=== PATIENT | female | born 1990 | race Caucasian/White ===

== ENCOUNTER 2018-10-21 08:14 | Inpatient (IN) | payer BC, OTHER ==
[~2018-10-21] VITALS: Ht 162.6 cm; Wt 57.1 kg
[2018-10-21 09:18] LABS: BASO # 0.1 10^3/uL (0.0-0.2); BASO % 1.2 % (0.0-1.0); EOS # 0.1 10^3/uL (0.0-0.50); EOS % 1.2 % (0.0-3.0); HEMATOCRIT 36.3 % (36.0-47.0); HEMOGLOBIN 12.5 g/dl (12.0-15.5); LYMPH # 1.2 10^3/uL (1.5-6.5); LYMPH % 23.6 % (24.0-44.0); MEAN CORPUSCULAR HEMOGLOBIN 34.3 pg (27.0-33.0); MEAN CORPUSCULAR HGB CONC 34.4 g/dl (32.0-36.5); MEAN CORPUSCULAR VOLUME 99.7 fl (80.0-96.0); MONO # 0.5 10^3/uL (0.0-0.8); MONO % 9.4 % (0.0-5.0); NEUTROPHILS # 3.2 10^3/uL (1.8-7.7); NEUTROPHILS % 64.4 % (36.0-66.0); PLATELET COUNT, AUTOMATED 198 10^3/uL (150-450); RED BLOOD COUNT 3.64 10^6/uL (4.00-5.40); WHITE BLOOD COUNT 4.9 10^3/uL (4.0-10.0)
[2018-10-21] MEDS ORDERED: NS 1,000 ML IV ONE (09:30)
[2018-10-21 09:53] LABS: ALBUMIN 3.7 GM/DL (3.2-5.2); ALT/SGPT 52 U/L (12-78); BILIRUBIN,DIRECT 0.8 MG/DL (0.0-0.2); BILIRUBIN,TOTAL 1.7 MG/DL (0.2-1.0); BLOOD UREA NITROGEN 4 MG/DL (7-18); CALCIUM LEVEL 8.7 MG/DL (8.5-10.1); CARBON DIOXIDE LEVEL 21 MEQ/L (21-32); CHLORIDE LEVEL 93 MEQ/L (98-107); CREATININE FOR GFR 0.58 MG/DL (0.55-1.30); GLOMERULAR FILTRATION RATE > 60.0 (>60); GLUCOSE, FASTING 85 MG/DL (70-100); LIPASE 1186 U/L (73-393); POTASSIUM SERUM 2.9 MEQ/L (3.5-5.1); SODIUM LEVEL 132 MEQ/L (136-145); TOTAL PROTEIN 7.1 GM/DL (6.4-8.2)
[2018-10-21] MEDS ORDERED: POTASSIUM CHLORIDE 10 MEQ SR TABLET PO ONE (10:15)
[2018-10-21] MEDS ORDERED: ISOVUE-370 76% 100ML VIAL (Q9967) As Ordered ONE (10:19)
[2018-10-21] MEDS ORDERED: MORPHINE 4 MG/ML 1ML VIAL/SYRINGE (J2270) IV ONE (12:15)
[2018-10-21] MEDS ORDERED: ONDANSETRON 4MG/2ML VIAL (J2405) IV ONE (12:15)
--- NOTE | 2018-10-21 12:19 | REP ---
CT ABDOMEN PELVIS WITH IV CONTRAST ONLY: 10/21/2018. Technique: Bolus of 100 ml Isovue 370 scanning through the abdomen and pelvis with coronal and sagittal reconstructions. Clinical history: Diffuse abdominal pain with guarding on examination. Past history of diverticulitis. Findings: CT abdomen: No prior study. Lung bases are clear. Heart not enlarged. There is no pericardial thickening or effusion. Liver is enlarged with a right hepatic lobe 19.7 cm in midclavicular line. It is very low density and suggests some fatty infiltration. There is no focal hepatic mass or biliary dilatation. Gallbladder without calcified stone or mass. The spleen is unremarkable and not enlarged. No ascites around the spleen or most of the liver. There is a small amount of ascites at the inferior margin of the right lobe and fluid tracking along the anterior margin of Gerota's fascia on the right. There is edema in the fat adjacent to the duodenum and pancreatic head in the right upper quadrant. I do not see free air or signs of duodenal perforation nor abnormal fluid collection to suggest abscess. There is narrowing of the duodenum as it crosses under the SMA and dilatation of the third and fourth portion of the duodenum. Mesenteric edema is noted. There is evidence of colonic wall thickening or colitis in the upper abdomen. Kidneys without stone, mass, cyst, hydronephrosis or hydroureter. No ureteral calcification seen. The aorta normal. No periaortic pathologic sized adenopathy. Small nodes in the mesentery and retroperitoneum are present. The bones intact in the lumbar lower thoracic spine as well as the ribs included. CT pelvis: The sacrum, SI joints, pelvis, hips and pubic rami are unremarkable. The bladder is nearly empty. No gross stone or mass. Distal left colon and sigmoid and rectum collapsed. Mild colitis cannot be excluded. Wall thickness is mildly prominent in these areas without inflammatory change. Small bowel loops in the deep pelvis fluid-filled but not abnormally dilated. Some mild mesenteric infiltration in the deep pelvis between the small bowel loops. Fluid tracking along the lateral coronal fascia with only trace free fluid in the deep pelvis on the right side but not the left. Uterus tilted towards the left. There is no adnexal mass. No ventral or inguinal hernia. Small thickening of the cecum and noted but I cannot define the appendix on this study with confidence. Impression: 1. Fatty infiltration liver with a 19.7 cm vertical diameter. No mass or biliary dilatation. Spleen normal. 2. Adrenal glands, kidneys and gallbladder without calcifications or gross abnormality. 3. Inflammatory changes adjacent to the duodenum with wall thickening and infiltration of fat in the duodenum. There is fluid along the inferior margin of the liver and along the anterior margin of Gerota's fascia into the peritoneal gutter. This may reflect duodenitis fairly severe. Mild pancreatitis of the pancreatic head with adjacent duodenal changes are possible but less likely. No perforation or abscess identified on these images. 4. Most of small bowel loops also are fluid filled but not abnormally dilated with some mild mesenteric infiltration. The right transverse colon show wall thickening and some pericolonic inflammatory changes suggesting colitis. There is wall thickening of the left colon and rectosigmoid with out adjacent inflammatory changes. Still reflects a pancolitis appearance. I cannot discern location of the appendix. There are inflammatory changes adjacent to the cecum but findings are worse at the level of the duodenum. Electronically Signed by Lane Rm MD 10/21/2018 09:49 P
[2018-10-21 12:26] LABS: AMPHETAMINES LEVEL URINE NEGATIVE (NEGATIVE); BARBITURATES URINE NEGATIVE (NEGATIVE); BENZODIAZEPINES URINE NEGATIVE (NEGATIVE); CANNABINOIDS URINE NEGATIVE (NEGATIVE); COCAINE METABOLITE URINE NEGATIVE (NEGATIVE); METHADONE URINE NEGATIVE (NEGATIVE); OPIATES URINE NEGATIVE (NEGATIVE); PHENCYCLIDINE URINE NEGATIVE (NEGATIVE)
[2018-10-21] MEDS ORDERED: LORazepam 2 MG TAB PO PRN (13:30)
[2018-10-21] MEDS ORDERED: MOM 30ML SUSPENSION UDC PO PRN (13:30)
[2018-10-21] MEDS ORDERED: ACETAMINOPHEN TAB 650MG DOSE (2X325MG) PO PRN (13:30)
[2018-10-21] MEDS ORDERED: MAALOX 30 ML SUSP *UDC PO PRN (13:30)
[2018-10-21] MEDS ORDERED: ONDANSETRON 4MG/2ML VIAL (J2405) IV PRN (13:30)
[2018-10-21] MEDS: NS 1,000 ML IV SCH ×3 (13:41→22:20)
--- NOTE | 2018-10-21 13:46 | HPEPDOC ---
General Date of Admission 10/21/18 Date of Service: Oct 21, 2018 Chief Complaint The patient is a 28-year-old female admitted with a reason for visit of Abdominal Pain. Source: Patient Exam Limitations: No limitations Timing/Duration: Week(s), Other Severity: Severe Associated Symptoms: Nausea, Vomiting History of Present Illness 28 years old white female with past medical history of no medical problems, presented with chief complaints of "I have really bad alcohol is a problem." As per patient, she hasn't been drinking habits since last 2 years but progressively is getting worse since last 1 month. She is been having his stomach pains. Abdomen pain and also saw some red blood in the mucus and progressively got worse since last 2 weeks and decided come to ER for further care. Patient denies any other complaints Home Medications No Active Prescriptions or Reported Meds Allergies Coded Allergies: No Known Allergies (Unverified , 10/21/18) Past Medical History Medical History Alcoholism and nicotine addiction Surgical History None Family History Significant Family History: No pertinent family hx Social History * Smoker: current smoker Alcohol: heavy Drugs: denies A-FIB/CHADSVASC A-FIB History Current/History of A-Fib/PAF?: No Review of Systems Constitutional: Denies: Chills, Fever, Malaise, Night Sweats, Weakness, Fatigue, Weight Loss, Lethargy, Other Eyes: Denies: Pain, Vision change, Conjunctivae inflammation, Eyelid inflammation, Redness, Other ENT: Denies: Head Aches, Ear Pain, Dysphagia, Sinus Congestion, Post Nasal Drip, Sore Throat, Epistaxis, Other Symptoms Pulmonary: Denies: Dyspnea, Cough, Pleuritic Chest Pain, Other Symptoms Cardiovascular: Denies: Chest Pain, Palpitations, Orthopnea, Paroxysmal Noc. Dyspnea, Edema, Lt Headedness, Other Symptoms Gastrointestinal: Reports: Nausea, Vomiting, Abdominal Pain Genitourinary: Denies: Dysuria, Frequency, Incontinence, Hematuria, Retention, Other Symptoms Hematologic: Denies: Bruising, Bleeding Excessively, Petecchia, Purpura, Enlarged Lymph Nodes, Other Hematologic Endocrine: Denies: Polydipsia, Polyphagia, Polyuria, Heat Intolerance, Cold Intolerance, Other Endocrine Sx Musculoskeletal: Denies: Neck Pain, Back Pain, Shoulder Pain, Arm Pain, Hand Pain, Leg Pain, Foot Pain, Joint Pain, Muscle Pain, Spasms, Other Symptoms Neurological: Denies: Weakness, Numbness, Incoordination, Change in speech, Confusion, Seizures, Other Symptoms Psych: Denies: Mood Normal, Anxiety, Depression, Memory Issues, Thoughts of Self Harm, Anger, Thoughts of Harming Other, Other Psych Physical Examination General Exam: Positive: Alert, Cooperative Eye Exam: Positive: PERRLA ENT Exam: Positive: Atraumatic, Mucous membr. moist/pink Neck Exam: Positive: Supple Chest Exam: Positive: Clear to auscultation, Normal air movement Heart Exam: Positive: Rate Normal, Normal S1, Normal S2 Abdomen Exam: Positive: Normal bowel sounds, Soft Extremity Exam: Positive: Normal pulses Skin Exam: Positive: Nl turgor and temperature Neuro Exam: Positive: Strength at 5/5 X4 ext, Sensation Intact Vital Signs Vital Signs Date Time Temp Pulse Resp B/P (MAP) Pulse Ox O2 Delivery O2 Flow Rate FiO2 10/21/18 12:49 96.9 86 17 107/67 (80) 98 Room Air Laboratory Data Labs 24H Laboratory Tests 2 10/21/18 09:00: Immature Granulocyte % (Auto) 0.2, White Blood Count 4.9, Red Blood Count 3.64L, Hemoglobin 12.5, Hematocrit 36.3, Mean Corpuscular Volume 99.7H, Mean Corpuscular Hemoglobin 34.3H, Mean Corpuscular Hemoglobin Concent 34.4, Red Cell Distribution Width 14.2, Platelet Count 198, Neutrophils (%) (Auto) 64.4, Lymphocytes (%) (Auto) 23.6L, Monocytes (%) (Auto) 9.4H, Eosinophils (%) (Auto) 1.2, Basophils (%) (Auto) 1.2H, Neutrophils # (Auto) 3.2, Lymphocytes # (Auto) 1.2L, Monocytes # (Auto) 0.5, Eosinophils # (Auto) 0.1, Basophils # (Auto) 0.1, Nucleated Red Blood Cells % (auto) 0.0, Anion Gap 18H, Glomerular Filtration Rate > 60.0, Calcium Level 8.7, Aspartate Amino Transf (AST/SGOT) 243H, Alanine Aminotransferase (ALT/SGPT) 52, Alkaline Phosphatase 192H, Total Bilirubin 1.7H, Direct Bilirubin 0.8H, Total Protein 7.1, Albumin 3.7, Albumin/Globulin Ratio 1.09, Lipase 1186H, Ethyl Alcohol Level 0.010 10/21/18 11:50: Urine Color YELLOW, Urine Appearance CLEAR, Urine pH 6.0, Urine Specific [place] >1.060H, Urine Protein NEGATIVE, Urine Glucose (UA) NEGATIVE, Urine Ketones 1+H, Urine Blood NEGATIVE, Urine Nitrite NEGATIVE, Urine Bilirubin NEGATIVE, Urine Urobilinogen 2.0H, Urine Leukocyte Esterase TRACEH, Urine WBC (Auto) 0, Urine RBC (Auto) 2, Urine Hyaline Casts (Auto) 0, Urine Bacteria (Auto) 1+H, Urine Squamous Epithelial Cells 0, Urine Sperm (Auto) , Urine Amphetamines Screen NEGATIVE, Urine Benzodiazepines Screen NEGATIVE, Urine Opiates Screen NEGATIVE, Urine Methadone Screen NEGATIVE, Urine Barbiturates Screen NEGATIVE, Urine Phencyclidine Screen NEGATIVE, Urine Cocaine Metabolite Screen NEGATIVE, Urine Cannabinoids Screen NEGATIVE CBC/BMP Laboratory Tests 10/21/18 09:00 Red Blood Count 3.64 L, Mean Corpuscular Volume 99.7 H, Mean Corpuscular Hemoglobin 34.3 H, Mean Corpuscular Hemoglobin Concent 34.4, Red Cell Distribution Width 14.2, Neutrophils (%) (Auto) 64.4, Lymphocytes (%) (Auto) 23.6 L, Monocytes (%) (Auto) 9.4 H, Eosinophils (%) (Auto) 1.2, Basophils (%) (Auto) 1.2 H, Neutrophils # (Auto) 3.2, Lymphocytes # (Auto) 1.2 L, Monocytes # (Auto) 0.5, Eosinophils # (Auto) 0.1, Basophils # (Auto) 0.1 Microbiology Microbiology 10/21/18 Urine Culture, Received Pending Problems (1) Pancreatitis Status: Acute Problem Text: 28 years old white female with no past medical history with severe abuse of alcohol. Lives alone. Patient drinks about half a liter of lock. I every day and she also smokes 1 pack per day. Patient came with abdominal pain and also noticed some red blood with the mucus in the stools since last 2 weeks. Patient denies any coffee-ground vomitus or stools. She will be admitted to medical floor with a severe duodenitis/pancolitis and possible impending delirium tremors. Patient was also supplemented with potassium for her hypokalemia, magnesium level now was not ordered but will be done today. Patient is already getting a magnesium supplement. Admitted to medical floor with the telemetry IV fluid normal saline 150 mL per hour Clear liquid diet Protonix 40 mg IV push every 12 hours Zofran when necessary DVT prophylaxis with bilateral SCDs (2) Pancolitis Status: Acute Problem Text: Most likely secondary to alcohol abuse Supportive care Bowel rest With clinically monitor patient. If needed, we'll get the GI consultation (3) ETOH abuse Status: Acute (4) Hypokalemia Status: Acute Problem Text: Supplemented Repeat level in a.m. (5) Duodenitis Status: Acute Problem Text: Most likely secondary to alcohol as an Protonix 40 mg IV every 12 hours Dear liquid diet (6) Fatty liver Status: Acute Plan / VTE VTE Prophylaxis Ordered?: Yes MAJOR GRACE MD Oct 21, 2018 13:46
[2018-10-21] MEDS ORDERED: NICOTINE 14 MG/24 HR TRANSDERMAL TD ONE (14:00)
[2018-10-21] MEDS ORDERED: MAG SULF 1GM/100ML (MAG RUN) 1 GM in APPROPRIATE DILUENT 1 EA IV ONE (14:00)
[2018-10-21] MEDS: DOCUSATE SODIUM 100 MG CAP PO SCH ×2 (15:05→22:19)
[2018-10-21] MEDS: FOLIC ACID 1 MG TAB PO SCH (15:05)
[2018-10-21] MEDS: MULTIVITAMINS/MINERALS THERAP 1 TAB PO SCH (15:05)
[2018-10-21] MEDS: THIAMINE 100 MG TAB PO SCH ×2 (15:05→22:19)
[2018-10-21] MEDS: PERCOCET 5MG/325MG TAB PO PRN ×2 (18:13→22:22)
--- NOTE | 2018-10-21 19:30 | ECGEPIP ---
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
[2018-10-21 22:00] VITALS: BP 117/82
[2018-10-21] MEDS: PANTOPRAZOLE 40MG INJ (PROTONIX) (C9113) IV SCH (22:19)
[2018-10-22] MEDS: NS 1,000 ML IV SCH ×4 (03:28→22:01)
[2018-10-22 06:00] VITALS: BP 91/52
[2018-10-22 06:26] LABS: HEMATOCRIT 27.3 % (36.0-47.0); MEAN CORPUSCULAR HEMOGLOBIN 33.7 pg (27.0-33.0); MEAN CORPUSCULAR HGB CONC 32.6 g/dl (32.0-36.5); MEAN CORPUSCULAR VOLUME 103.4 fl (80.0-96.0); PLATELET COUNT, AUTOMATED 148 10^3/uL (150-450); RED BLOOD COUNT 2.64 10^6/uL (4.00-5.40); WHITE BLOOD COUNT 3.6 10^3/uL (4.0-10.0)
[2018-10-22 06:31] LABS: HEMOGLOBIN 8.9 g/dl (12.0-15.5)
[2018-10-22 07:06] LABS: ALBUMIN 2.7 GM/DL (3.2-5.2); ALT/SGPT 34 U/L (12-78); BILIRUBIN,TOTAL 1.2 MG/DL (0.2-1.0); BLOOD UREA NITROGEN 2 MG/DL (7-18); CALCIUM LEVEL 7.2 MG/DL (8.5-10.1); CARBON DIOXIDE LEVEL 27 MEQ/L (21-32); CHLORIDE LEVEL 105 MEQ/L (98-107); CREATININE FOR GFR 0.38 MG/DL (0.55-1.30); GLOMERULAR FILTRATION RATE > 60.0 (>60); GLUCOSE, FASTING 82 MG/DL (70-100); LIPASE 581 U/L (73-393); MAGNESIUM LEVEL 1.7 MG/DL (1.8-2.4); POTASSIUM SERUM 3.3 MEQ/L (3.5-5.1); SODIUM LEVEL 140 MEQ/L (136-145)
[2018-10-22] MEDS ORDERED: POTASSIUM CHLORIDE 10 MEQ SR TABLET PO ONE (08:00)
[2018-10-22] MEDS ORDERED: MAG SULF 1GM/100ML (MAG RUN) 1 GM in APPROPRIATE DILUENT 1 EA IV ONE (08:00)
[2018-10-22] MEDS: PANTOPRAZOLE 40MG INJ (PROTONIX) (C9113) IV SCH ×2 (08:22→20:59)
[2018-10-22] MEDS: PERCOCET 5MG/325MG TAB PO PRN ×3 (08:23→20:59)
[2018-10-22] MEDS: THIAMINE 100 MG TAB PO SCH ×2 (08:23→20:58)
[2018-10-22] MEDS: MULTIVITAMINS/MINERALS THERAP 1 TAB PO SCH (08:23)
[2018-10-22] MEDS: FOLIC ACID 1 MG TAB PO SCH (08:23)
[2018-10-22] MEDS: DOCUSATE SODIUM 100 MG CAP PO SCH ×2 (08:23→20:58)
[2018-10-22 08:33] VITALS: BP 100/76
--- NOTE | 2018-10-22 11:06 | IPNPDOC ---
Subjective Date Seen The patient was seen on 10/22/18. Subjective Chief Complaint/HPI Patient with reduced abdominal pain. As per patient, she is improving slightly, denies any blood in stools or mucus in stool General: Denies: ROS Unobtainable, Chills, Night Sweats, Fatigue, Malaise, Normal Appetite, Other Symptoms Constitutional: Denies: Chills, Fever, Malaise, Night Sweats, Weakness, Fatigue, Weight Loss, Lethargy, Other Eyes: Denies: Pain, Vision change, Conjunctivae inflammation, Eyelid inflammation, Redness, Other ENT: Denies: Head Aches, Ear Pain, Dysphagia, Sinus Congestion, Post Nasal Drip, Sore Throat, Epistaxis, Other Symptoms Skin: Denies: Rash, Lesions, Jaundice, Bruising, Itching, Dry, Breakdown, Nail Changes, Other Cardiovascular: Denies: Chest Pain, Palpitations, Orthopnea, Paroxysmal Noc. Dyspnea, Edema, Lt Headedness, Other Symptoms Gastrointestinal: Reports: Abdominal Pain Hematologic: Denies: Bruising, Bleeding Excessively, Petecchia, Purpura, Enlarged Lymph Nodes, Other Hematologic Neurological: Denies: Weakness, Numbness, Incoordination, Change in speech, Confusion, Seizures, Other Symptoms Objective Physical Examination General Exam: Positive: Alert, Cooperative Eye Exam: Positive: PERRLA ENT Exam: Positive: Atraumatic, Mucous membr. moist/pink Neck Exam: Positive: Supple Chest Exam: Positive: Clear to auscultation, Normal air movement Heart Exam: Positive: Rate Normal, Normal S1, Normal S2 Abdomen Exam: Positive: Normal bowel sounds, Soft, Tenderness (positive tenderness at the epigastric area) Extremity Exam: Positive: Normal pulses Skin Exam: Positive: Nl turgor and temperature Neuro Exam: Positive: Strength at 5/5 X4 ext, Sensation Intact Assessment /Plan Problems (1) Pancreatitis Status: Acute Problem Text: 28 years old white female with no past medical history with severe abuse of alcohol. Lives alone. Patient drinks about half a liter of lock. I every day and she also smokes 1 pack per day. Patient came with abdominal pain and also noticed some red blood with the mucus in the stools since last 2 weeks. Patient denies any coffee-ground vomitus or stools. She will be admitted to medical floor with a severe duodenitis/pancolitis and possible impending delirium tremors. Patient was also supplemented with potassium for her hypokalemia, magnesium level now was not ordered but will be done today. Patient is already getting a magnesium supplement. Admitted to medical floor Decreased IV fluids normal saline 100 mL per hour Clear liquid diet Protonix 40 mg IV push every 12 hours Zofran when necessary DVT prophylaxis with bilateral SCDs Lipase is down to 581 Will update diet to regular diet (2) Pancolitis Status: Acute Problem Text: Most likely secondary to alcohol abuse Improving. Is status progressively with pain management and bowel rest Supportive care Bowel rest With clinically monitor patient. If needed, we'll get the GI consultation (3) ETOH abuse Status: Acute Problem Text: Extensive counseling regarding abstinence from alcohol was done, patient is not willing to go for alcohol rehabilitation inpatient or outpatient (4) Hypokalemia Status: Acute Problem Text: Supplemented Repeat level in a.m. (5) Duodenitis Status: Acute Problem Text: Most likely secondary to alcohol as an Protonix 40 mg IV every 12 hours Dear liquid diet (6) Fatty liver Status: Acute Problem Text: Secondary to alcohol abuse (7) Hypomagnesemia Status: Acute Problem Text: Magnesium sulfate sulfate given Be levels in a.m. Plan/VTE VTE Prophylaxis Ordered?: Yes VS, I&O, 24H, Fishbone Vital Signs/I&O Vital Signs Date Time Temp Pulse Resp B/P (MAP) Pulse Ox O2 Delivery O2 Flow Rate FiO2 10/22/18 08:53 16 10/22/18 08:33 84 100/76 10/22/18 06:00 96.5 99 10/21/18 12:49 Room Air I&O- Last 24 Hours up to 6 AM 10/22/18 06:00 Intake Total 2525 ml Balance 2525 ml Laboratory Data 24H LABS Laboratory Tests 2 10/21/18 11:50: Urine Color YELLOW, Urine Appearance CLEAR, Urine pH 6.0, Urine Specific [place] >1.060H, Urine Protein NEGATIVE, Urine Glucose (UA) NEGATIVE, Urine Ketones 1+H, Urine Blood NEGATIVE, Urine Nitrite NEGATIVE, Urine Bilirubin NEGATIVE, Urine Urobilinogen 2.0H, Urine Leukocyte Esterase TRACEH, Urine WBC (Auto) 0, Urine RBC (Auto) 2, Urine Hyaline Casts (Auto) 0, Urine Bacteria (Auto) 1+H, Urine Squamous Epithelial Cells 0, Urine Sperm (Auto) , Urine Amphetamines Screen NEGATIVE, Urine Benzodiazepines Screen NEGATIVE, Urine Opiates Screen NEGATIVE, Urine Methadone Screen NEGATIVE, Urine Barbiturates Screen NEGATIVE, Urine Phencyclidine Screen NEGATIVE, Urine Cocaine Metabolite Screen NEGATIVE, Urine Cannabinoids Screen NEGATIVE 10/22/18 05:59: Nucleated Red Blood Cells % (auto) 0.0, Anion Gap 8, Glomerular Filtration Rate > 60.0, Blood Urea Nitrogen 2L, Creatinine 0.38L, Sodium Level 140#, Potassium Level 3.3L, Chloride Level 105, Carbon Dioxide Level 27, Calcium Level 7.2#L, Aspartate Amino Transf (AST/SGOT) 145H, Alanine Aminotransferase (ALT/SGPT) 34, Alkaline Phosphatase 130H, Total Bilirubin 1.2H, Total Protein 5.0#L, Albumin 2.7#L, Magnesium Level 1.7L, Albumin/Globulin Ratio 1.17, Lipase 581H CBC/BMP Laboratory Tests 10/22/18 05:59 Red Blood Count 2.64 L, Mean Corpuscular Volume 103.4 H, Mean Corpuscular Hemoglobin 33.7 H, Mean Corpuscular Hemoglobin Concent 32.6, Red Cell Distribution Width 14.2, Calcium Level 7.2 #L, Aspartate Amino Transf (AST/SGOT) 145 H, Alanine Aminotransferase (ALT/SGPT) 34, Alkaline Phosphatase 130 H, Total Bilirubin 1.2 H, Total Protein 5.0 #L, Albumin 2.7 #L Microbiology Microbiology 10/21/18 Urine Culture, Received Pending MAJOR GRACE MD Oct 22, 2018 11:06
[2018-10-22 14:00] VITALS: BP 108/81
[2018-10-22 16:27] VITALS: BP 102/80
[2018-10-22 22:00] VITALS: BP 111/79
[2018-10-23] MEDS: NS 1,000 ML IV SCH ×2 (02:45→09:20)
[2018-10-23 06:00] VITALS: BP 115/80
[2018-10-23 06:12] LABS: BASO % 1.1 % (0.0-1.0); EOS # 0.1 10^3/uL (0.0-0.50); EOS % 2.7 % (0.0-3.0); LYMPH # 1.1 10^3/uL (1.5-6.5); MEAN CORPUSCULAR HEMOGLOBIN 32.8 pg (27.0-33.0); MEAN CORPUSCULAR HGB CONC 32.1 g/dl (32.0-36.5); MEAN CORPUSCULAR VOLUME 102.2 fl (80.0-96.0); MONO # 0.3 10^3/uL (0.0-0.8); NEUTROPHILS # 2.2 10^3/uL (1.8-7.7); NEUTROPHILS % 59.9 % (36.0-66.0); PLATELET COUNT, AUTOMATED 157 10^3/uL (150-450); RED BLOOD COUNT 2.74 10^6/uL (4.00-5.40); WHITE BLOOD COUNT 3.7 10^3/uL (4.0-10.0)
[2018-10-23] MEDS: PERCOCET 5MG/325MG TAB PO PRN ×3 (06:23→22:16)
[2018-10-23 06:40] LABS: ALBUMIN 2.6 GM/DL (3.2-5.2); ALT/SGPT 53 U/L (12-78); BILIRUBIN,TOTAL 0.8 MG/DL (0.2-1.0); BLOOD UREA NITROGEN < 1 MG/DL (7-18); CALCIUM LEVEL 7.3 MG/DL (8.5-10.1); CARBON DIOXIDE LEVEL 25 MEQ/L (21-32); CHLORIDE LEVEL 111 MEQ/L (98-107); CREATININE FOR GFR 0.38 MG/DL (0.55-1.30); GLOMERULAR FILTRATION RATE > 60.0 (>60); GLUCOSE, FASTING 87 MG/DL (70-100); POTASSIUM SERUM 3.4 MEQ/L (3.5-5.1); SODIUM LEVEL 142 MEQ/L (136-145); TOTAL PROTEIN 4.9 GM/DL (6.4-8.2)
[2018-10-23] MEDS ORDERED: POTASSIUM CHLORIDE 10 MEQ SR TABLET PO ONE (08:00)
[2018-10-23] MEDS: THIAMINE 100 MG TAB PO SCH ×2 (09:15→22:15)
[2018-10-23] MEDS: DOCUSATE SODIUM 100 MG CAP PO SCH ×2 (09:15→22:15)
[2018-10-23] MEDS: PANTOPRAZOLE 40MG INJ (PROTONIX) (C9113) IV SCH ×2 (09:15→22:15)
[2018-10-23] MEDS: MULTIVITAMINS/MINERALS THERAP 1 TAB PO SCH (09:15)
[2018-10-23] MEDS: FOLIC ACID 1 MG TAB PO SCH (09:15)
--- NOTE | 2018-10-23 11:36 | IPNPDOC ---
Subjective Date Seen The patient was seen on 10/23/18. Subjective Chief Complaint/HPI Patient feels much better. Still has some abdominal pain mostly on the left lower quadrant, nausea, vomiting has resolved General: Denies: ROS Unobtainable, Chills, Night Sweats, Fatigue, Malaise, Normal Appetite, Other Symptoms Constitutional: Denies: Chills, Fever, Malaise, Night Sweats, Weakness, Fatigue, Weight Loss, Lethargy, Other Eyes: Denies: Pain, Vision change, Conjunctivae inflammation, Eyelid inflammation, Redness, Other ENT: Denies: Head Aches, Ear Pain, Dysphagia, Sinus Congestion, Post Nasal Drip, Sore Throat, Epistaxis, Other Symptoms Skin: Denies: Rash, Lesions, Jaundice, Bruising, Itching, Dry, Breakdown, Nail Changes, Other Pulmonary: Denies: Dyspnea, Cough, Pleuritic Chest Pain, Other Symptoms Cardiovascular: Denies: Chest Pain, Palpitations, Orthopnea, Paroxysmal Noc. Dyspnea, Edema, Lt Headedness, Other Symptoms Gastrointestinal: Reports: Abdominal Pain Genitourinary: Denies: Dysuria, Frequency, Incontinence, Hematuria, Retention, Other Symptoms Hematologic: Denies: Bruising, Bleeding Excessively, Petecchia, Purpura, Enlarged Lymph Nodes, Other Hematologic Endocrine: Denies: Polydipsia, Polyphagia, Polyuria, Heat Intolerance, Cold Intolerance, Other Endocrine Sx Musculoskeletal: Denies: Neck Pain, Back Pain, Shoulder Pain, Arm Pain, Hand P ain, Leg Pain, Foot Pain, Joint Pain, Muscle Pain, Spasms, Other Symptoms Neurological: Denies: Weakness, Numbness, Incoordination, Change in speech, Confusion, Seizures, Other Symptoms Objective Physical Examination General Exam: Positive: Alert, Cooperative Eye Exam: Positive: PERRLA ENT Exam: Positive: Atraumatic, Mucous membr. moist/pink Neck Exam: Positive: Supple Chest Exam: Positive: Clear to auscultation, Normal air movement Heart Exam: Positive: Rate Normal, Normal S1, Normal S2 Abdomen Exam: Positive: Normal bowel sounds, Soft, Tenderness (positive tenderness. His left lower quadrant) Extremity Exam: Positive: Normal pulses Skin Exam: Positive: Nl turgor and temperature Neuro Exam: Positive: Strength at 5/5 X4 ext, Sensation Intact Assessment /Plan Problems (1) Pancreatitis Status: Acute Problem Text: 28 years old white female with no past medical history with severe abuse of alcohol. Lives alone. Patient drinks about half a liter of lock. I every day and she also smokes 1 pack per day. Patient came with abdominal pain and also noticed some red blood with the mucus in the stools since last 2 weeks. Patient denies any coffee-ground vomitus or stools. She will be admitted to medical floor with a severe duodenitis/pancolitis and possible impending delirium tremors. Patient was also supplemented with potassium for her hypokalemia, magnesium level now was not ordered but will be done today. Patient is already getting a magnesium supplement. Admitted to medical floor Decreased IV fluids normal saline 100 mL per hour On regular diet, tolerating very well Protonix changed to by mouth today Zofran when necessary DVT prophylaxis with bilateral SCDs GI consult with Dr. Bass called as patient is still hesitant to tenderness at left lower quadrant and on CT abdomen and pelvis. There was evidence of pancolitis, further, as per GI recommendations (2) Pancolitis Status: Acute Problem Text: Most likely secondary to alcohol abuse Still complaining of left lower quadrant pain which is improved but persistent GI consult with Dr. Bass has been requested (3) ETOH abuse Status: Acute Problem Text: Extensive counseling regarding abstinence from alcohol was done, patient is not willing to go for alcohol rehabilitation inpatient or outpatient (4) Hypokalemia Status: Acute Problem Text: Supplemented Repeat level in a.m. (5) Duodenitis Status: Acute Problem Text: Most likely secondary to alcohol as an Protonix 40 mg IV every 12 hours Dear liquid diet (6) Fatty liver Status: Acute Problem Text: Secondary to alcohol abuse (7) Hypomagnesemia Status: Acute Problem Text: Magnesium sulfate sulfate given Be levels in a.m. Plan/VTE VTE Prophylaxis Ordered?: Yes VS, I&O, 24H, Fishbone Vital Signs/I&O Vital Signs Date Time Temp Pulse Resp B/P (MAP) Pulse Ox O2 Delivery O2 Flow Rate FiO2 10/23/18 06:53 20 10/23/18 06:00 65 115/80 10/23/18 06:00 97.6 98 10/21/18 12:49 Room Air I&O- Last 24 Hours up to 6 AM 10/23/18 05:59 Intake Total 4100 ml Balance 4100 ml Laboratory Data 24H LABS Laboratory Tests 2 10/23/18 05:59: Immature Granulocyte % (Auto) 0.3, White Blood Count 3.7L, Red Blood Count 2.74L, Hemoglobin 9.0L, Hematocrit 28.0L, Mean Corpuscular Volume 102.2H, Mean Corpuscular Hemoglobin 32.8, Mean Corpuscular Hemoglobin Concent 32.1, Red Cell Distribution Width 14.5, Platelet Count 157, Neutrophils (%) (Auto) 59.9, Lymphocytes (%) (Auto) 29.0, Monocytes (%) (Auto) 7.0H, Eosinophils (%) (Auto) 2.7, Basophils (%) (Auto) 1.1H, Neutrophils # (Auto) 2.2, Lymphocytes # (Auto) 1.1L, Monocytes # (Auto) 0.3, Eosinophils # (Auto) 0.1, Basophils # (Auto) 0.0, Nucleated Red Blood Cells % (auto) 0.0, Anion Gap 6L, Glomerular Filtration Rate > 60.0, Blood Urea Nitrogen < 1#L, Creatinine 0.38L, Sodium Level 142, Potassium Level 3.4L, Chloride Level 111H, Carbon Dioxide Level 25, Calcium Level 7.3L, Aspartate Amino Transf (AST/SGOT) 210H, Alanine Aminotransferase (ALT/SGPT) 53, Alkaline Phosphatase 153H, Total Bilirubin 0.8, Total Protein 4.9L, Albumin 2.6L, Albumin/Globulin Ratio 1.13 CBC/BMP Laboratory Tests 10/23/18 05:59 Red Blood Count 2.74 L, Mean Corpuscular Volume 102.2 H, Mean Corpuscular Hemoglobin 32.8, Mean Corpuscular Hemoglobin Concent 32.1, Red Cell Distribution Width 14.5, Neutrophils (%) (Auto) 59.9, Lymphocytes (%) (Auto) 29.0, Monocytes (%) (Auto) 7.0 H, Eosinophils (%) (Auto) 2.7, Basophils (%) (Auto) 1.1 H, N eutrophils # (Auto) 2.2, Lymphocytes # (Auto) 1.1 L, Monocytes # (Auto) 0.3, Eosinophils # (Auto) 0.1, Basophils # (Auto) 0.0, Calcium Level 7.3 L, Aspartate Amino Transf (AST/SGOT) 210 H, Alanine Aminotransferase (ALT/SGPT) 53, Alkaline Phosphatase 153 H, Total Bilirubin 0.8, Total Protein 4.9 L, Albumin 2.6 L Microbiology Microbiology 10/21/18 Urine Culture - Final, Complete Klebsiella Pneumoniae MAJOR GRACE MD Oct 23, 2018 11:36
[2018-10-23 14:00] VITALS: BP 110/76
[2018-10-23 22:00] VITALS: BP 124/80
[2018-10-24] MEDS: NS 1,000 ML IV SCH ×2 (01:32→11:19)
[2018-10-24 05:51] LABS: HEMATOCRIT 27.1 % (36.0-47.0); HEMOGLOBIN 8.8 g/dl (12.0-15.5); MEAN CORPUSCULAR HGB CONC 32.5 g/dl (32.0-36.5); MEAN CORPUSCULAR VOLUME 101.5 fl (80.0-96.0); PLATELET COUNT, AUTOMATED 187 10^3/uL (150-450); RED BLOOD COUNT 2.67 10^6/uL (4.00-5.40); WHITE BLOOD COUNT 4.5 10^3/uL (4.0-10.0)
[2018-10-24 06:00] VITALS: BP 98/60
[2018-10-24 06:19] LABS: ALBUMIN 2.7 GM/DL (3.2-5.2); ALT/SGPT 61 U/L (12-78); BILIRUBIN,TOTAL 0.7 MG/DL (0.2-1.0); BLOOD UREA NITROGEN < 1 MG/DL (7-18); CALCIUM LEVEL 7.7 MG/DL (8.5-10.1); CARBON DIOXIDE LEVEL 25 MEQ/L (21-32); CHLORIDE LEVEL 108 MEQ/L (98-107); CREATININE FOR GFR 0.41 MG/DL (0.55-1.30); GLOMERULAR FILTRATION RATE > 60.0 (>60); GLUCOSE, FASTING 90 MG/DL (70-100); LIPASE 339 U/L (73-393); POTASSIUM SERUM 3.6 MEQ/L (3.5-5.1); SODIUM LEVEL 140 MEQ/L (136-145); TOTAL PROTEIN 5.3 GM/DL (6.4-8.2)
[2018-10-24] MEDS: FOLIC ACID 1 MG TAB PO SCH (08:24)
[2018-10-24] MEDS: DOCUSATE SODIUM 100 MG CAP PO SCH (08:24)
[2018-10-24] MEDS: PANTOPRAZOLE 40MG INJ (PROTONIX) (C9113) IV SCH (08:24)
[2018-10-24] MEDS: MULTIVITAMINS/MINERALS THERAP 1 TAB PO SCH (08:24)
--- NOTE | 2018-10-24 11:09 | IPNPDOC ---
Subjective Date Seen The patient was seen on 10/24/18. Subjective Chief Complaint/HPI Patient abdominal pain is improving with less pain on left lower quadrant GI of the report is pending General: Denies: ROS Unobtainable, Chills, Night Sweats, Fatigue, Malaise, Normal Appetite, Other Symptoms Constitutional: Denies: Chills, Fever, Malaise, Night Sweats, Weakness, Fatigue, Weight Loss, Lethargy, Other Eyes: Denies: Pain, Vision change, Conjunctivae inflammation, Eyelid inflammation, Redness, Other ENT: Denies: Head Aches, Ear Pain, Dysphagia, Sinus Congestion, Post Nasal Drip, Sore Throat, Epistaxis, Other Symptoms Skin: Denies: Rash, Lesions, Jaundice, Bruising, Itching, Dry, Breakdown, Nail Changes, Other Pulmonary: Denies: Dyspnea, Cough, Pleuritic Chest Pain, Other Symptoms Cardiovascular: Denies: Chest Pain, Palpitations, Orthopnea, Paroxysmal Noc. Dyspnea, Edema, Lt Headedness, Other Symptoms Gastrointestinal: Denies: Nausea, Vomiting, Abdominal Pain, Diarrhea, Constipation, Melena, Hematochezia, Other Symptoms Musculoskeletal: Denies: Neck Pain, Back Pain, Shoulder Pain, Arm Pain, Hand Pain, Leg Pain, Foot Pain, Joint Pain, Muscle Pain, Spasms, Other Symptoms Neurological: Denies: Weakness, Numbness, Incoordination, Change in speech, Confusion, Seizures, Other Symptoms Objective Physical Examination General Exam: Positive: Alert, Cooperative Eye Exam: Positive: PERRLA ENT Exam: Positive: Atraumatic, Mucous membr. moist/pink Neck Exam: Positive: Supple Chest Exam: Positive: Clear to auscultation, Normal air movement Heart Exam: Positive: Rate Normal, Normal S1, Normal S2 Abdomen Exam: Positive: Normal bowel sounds, Soft, Tenderness (positive tenderness. His left lower quadrant) Extremity Exam: Positive: Normal pulses Skin Exam: Positive: Nl turgor and temperature Neuro Exam: Positive: Strength at 5/5 X4 ext, Sensation Intact Assessment /Plan Problems (1) Pancreatitis Status: Resolved Problem Text: 28 years old white female with no past medical history with severe abuse of alcohol. Lives alone. Patient drinks about half a liter of lock. I every day and she also smokes 1 pack per day. Patient came with abdominal pain and also noticed some red blood with the mucus in the stools since last 2 weeks. Patient denies any coffee-ground vomitus or stools. She will be admitted to medical floor with a severe duodenitis/pancolitis and possible impending delirium tremors. Patient was also supplemented with potassium for her hypokalemia, magnesium level now was not ordered but will be done today. Patient is already getting a magnesium supplement. Admitted to medical floor Decreased IV fluids normal saline 100 mL per hour On regular diet, tolerating very well Protonix changed to by mouth today Zofran when necessary DVT prophylaxis with bilateral SCDs GI consult with Dr. Bass called as patient is still hesitant to tenderness at left lower quadrant and on CT abdomen and pelvis. There was evidence of pancolitis, further, as per GI recommendations (2) Pancolitis Status: Acute Problem Text: Most likely secondary to alcohol abuse Still complaining of left lower quadrant pain which is improved but persistent . She was seen by Dr. Bass of. She does report is pending Repeat CT abdomen and pelvis to see the progress (3) ETOH abuse Status: Acute Problem Text: Extensive counseling regarding abstinence from alcohol was done, patient is not willing to go for alcohol rehabilitation inpatient or outpatient (4) Hypokalemia Status: Resolved Problem Text: Supplemented Repeat level in a.m. (5) Duodenitis Status: Acute Problem Text: Most likely secondary to alcohol as an Protonix 40 mg IV every 12 hours Dear liquid diet (6) Fatty liver Status: Acute Problem Text: Secondary to alcohol abuse (7) Hypomagnesemia Status: Resolved Problem Text: Magnesium sulfate sulfate given Be levels in a.m. Plan/VTE VTE Prophylaxis Ordered?: Yes VS, I&O, 24H, [facility] Vital Signs/I&O Vital Signs Date Time Temp Pulse Resp B/P (MAP) Pulse Ox O2 Delivery O2 Flow Rate FiO2 10/24/18 06:00 97.8 86 18 98/60 (73) 100 10/21/18 12:49 Room Air I&O- Last 24 Hours up to 6 AM 10/24/18 06:00 Intake Total 4340 ml Output Total 0 ml Balance 4340 ml Laboratory Data 24H LABS Laboratory Tests 2 10/24/18 05:16: Nucleated Red Blood Cells % (auto) 0.0, Anion Gap 7L, Glomerular Filtration Rate > 60.0, Blood Urea Nitrogen < 1L, Creatinine 0.41L, Sodium Level 140, Potassium Level 3.6, Chloride Level 108H, Carbon Dioxide Level 25, Calcium Level 7.7L, Aspartate Amino Transf (AST/SGOT) 180H, Alanine Aminotransferase (ALT/SGPT) 61, Alkaline Phosphatase 152H, Total Bilirubin 0.7, Total Protein 5.3L, Albumin 2.7L, Albumin/Globulin Ratio 1.04, Lipase 339 CBC/BMP Laboratory Tests 10/24/18 05:16 Red Blood Count 2.67 L, Mean Corpuscular Volume 101.5 H, Mean Corpuscular Hemoglobin 33.0, Mean Corpuscular Hemoglobin Concent 32.5, Red Cell Distribution Width 14.5, Calcium Level 7.7 L, Aspartate Amino Transf (AST/SGOT) 180 H, Alanine Aminotransferase (ALT/SGPT) 61, Alkaline Phosphatase 152 H, Total Bilirubin 0.7, Total Protein 5.3 L, Albumin 2.7 L Microbiology Microbiology 10/21/18 Urine Culture - Final, Complete Klebsiella Pneumoniae MAJOR GRACE MD Oct 24, 2018 11:09
[2018-10-24] MEDS: GASTROGRAFIN SOLUTION 30ML PO SCH ×2 (11:18→11:44)
[2018-10-24] MEDS ORDERED: ISOVUE-370 76% 100ML VIAL (Q9967) As Ordered ONE (12:47)
[2018-10-24 14:00] VITALS: BP 129/80
--- NOTE | 2018-10-24 14:28 | REP ---
REASON FOR EXAM: History of colitis. COMPARISON: 10/21/2018 CONTRAST: 100 mL [id number]. The lung bases are clear with the exception of a tiny left pleural effusion. There is diffuse low density seen throughout the liver with hepatomegaly, status quo. This is unchanged. The spleen, pancreas, adrenal glands, and kidneys are unchanged and again seen to be within normal limits. Periduodenal inflammatory changes with wall thickening have improved. Small amount of fluid seen previously in the right paracolic gutter has decreased, and there is less thickening of the right lateroconal fascia. The abdominal aorta and para-aortic regions are again seen to be within normal limits. There is no evidence of free air. There is no free fluid in the abdomen. There are a few gas filled and contrast filled mildly dilated small bowel loops in the abdomen. The colon is noncontrast opacified limiting evaluation of it. CT PELVIS: There is a small to moderate amount of free fluid in the pelvis. This has increased slightly. The bowel loops within the pelvis are within normal limits, however, the sigmoid colon is noncontrast opacified limiting evaluation of it. There is no evidence of pelvic sidewall adenopathy. Bone window technique throughout the examination shows no change in the osseous structures. IMPRESSION: 1. The duodenal and Periduodenal inflammatory changes have significantly improved and nearly completely resolved. Some periduodenal fatty infiltration is again seen laterally with mild thickening of the right lateroconal fascia. This too has improved. 2. There is diffuse fatty infiltration of the liver with hepatomegaly, status quo. 3. There is a tiny left pleural effusion. 4. Overall, the appearance of the colon has improved compared to the prior exam, however, it is seen in a limited fashion since it is not contrast opacified. 5. There is evidence of a small bowel ileus. There is no evidence of intestinal obstruction. 6. There is a small to moderate amount of free fluid in the pelvis, which has increased somewhat from the prior exam. 7. Other findings as described above. Electronically Signed by Darien Robertson DO 10/24/2018 03:36 P
[2018-10-24] MEDS ORDERED: PANT40TA3 PO (15:21)
[2018-10-24] MEDS ORDERED: VITMTA PO (15:21)
[2018-10-24] MEDS ORDERED: FOLI1TAB11 PO (15:21)
--- NOTE | 2018-10-24 15:27 | DS.PDOC ---
Discharge Summary General Date of Admission Oct 21, 2018 at 13:23 Date of Discharge 10/24/18 Discharge Summary PROCEDURES PERFORMED DURING STAY: None. ADMITTING DIAGNOSES: 1. , Acute Duodenitis, acute pancreatitis, pancolitis, alcohol abuse. DISCHARGE DIAGNOSES: 1. , Acute. 2. Duodenitis, pancolitis acute pancreatitis, alcohol abuse, hypokalemia, hypomagnesemia. COMPLICATIONS/CHIEF COMPLAINT: Etoh Abuse,Pancolitis,Pancreatitis. HISTORY OF PRESENT ILLNESS: 28 years old white female with past medical history of no medical problems, presented with chief complaints of "I have really bad alcohol is a problem." As per patient, she hasn't been drinking habits since last 2 years but progressively is getting worse since last 1 month. She is been having his stomach pains. Abdomen pain and also saw some red blood in the mucus and progressively got worse since last 2 weeks and decided come to ER for f urther care. Patient denies any other complaints. HOSPITAL COURSE: Patient was admitted with the diagnosis of acute duodenitis acute pancreatitis and pancolitis secondary to alcohol abuse. Patient initially was started on IV fluids and Protonix 40 mg IV every 12 hours. Patient was kept nothing by mouth and continued on folic acid and multivitamin and OR and when necessary. Patient initially complaining of abdominal pain for which she did receive Percocet when necessary with some good relief. Patient's liver enzymes progressively reduced in number and also lipase has normalized. Patient's repeat CT of the abdomen and pelvis was done which showed near resolution of duodenitis and colitis. Patient is clinically stable, tolerating oral feeding very well and can she be discharged home on by mouth Protonix and follow-up with her PCP in one week. Patient was counseled regarding alcohol addiction, but she refuses to address this as an inpatient or outpatient at this time. DISCHARGE MEDICATIONS: Please see below. ALLERGIES: Please see below. PHYSICAL EXAMINATION ON DISCHARGE: VITAL SIGNS: Please see below. GENERAL: Within normal limits HEENT: PERRLA NECK: Supple CARDIOVASCULAR EXAMINATION: S1, S2, regular RESPIRATORY EXAMINATION: [Clear to A&P ABDOMINAL EXAMINATION: , Soft, nontender, bowel sounds present EXTREMITIES: No clubbing, cyanosis, edema SKIN: The normal limit NEUROLOGICAL EXAMINATION: . No focal motor sensory deficit PSYCHIATRIC EXAMINATION: Normal LABORATORY DATA: Please see below. IMAGING: [Repeat CT abdomen and pelvis shows near resolution of acute duodenitis and pancolitis PROGNOSIS: Good ACTIVITY: As tolerated. DIET: As tolerated DISCHARGE PLAN: Follow with PCP in one week DISPOSITION: . Home DISCHARGE INSTRUCTIONS: 1. As per discharge instructions. ITEMS TO FOLLOWUP ON ON OUTPATIENT: 1. Low at PCP in one week. DISCHARGE CONDITION: Stable. TIME SPENT ON DISCHARGE:36 minutes. Vital Signs/I&Os Vital Signs Date Time Temp Pulse Resp B/P (MAP) Pulse Ox O2 Delivery O2 Flow Rate FiO2 10/24/18 14:00 98.7 71 18 129/80 (96) 98 10/21/18 12:49 Room Air I&O- Last 24 Hours up to 6 AM 10/24/18 06:00 Intake Total 4340 ml Output Total 0 ml Balance 4340 ml Laboratory Data Labs 24H Laboratory Tests 2 10/24/18 05:16: Nucleated Red Blood Cells % (auto) 0.0, Anion Gap 7L, Glomerular Filtration Rate > 60.0, Blood Urea Nitrogen < 1L, Creatinine 0.41L, Sodium Level 140, Potassium Level 3.6, Chloride Level 108H, Carbon Dioxide Level 25, Calcium Level 7.7L, Aspartate Amino Transf (AST/SGOT) 180H, Alanine Aminotransferase (ALT/SGPT) 61, Alkaline Phosphatase 152H, Total Bilirubin 0.7, Total Protein 5.3L, Albumin 2.7L, Albumin/Globulin Ratio 1.04, Lipase 339 CBC/BMP Laboratory Tests 10/24/18 05:16 Red Blood Count 2.67 L, Mean Corpuscular Volume 101.5 H, Mean Corpuscular Hemog lobin 33.0, Mean Corpuscular Hemoglobin Concent 32.5, Red Cell Distribution Width 14.5, Calcium Level 7.7 L, Aspartate Amino Transf (AST/SGOT) 180 H, Alanine Aminotransferase (ALT/SGPT) 61, Alkaline Phosphatase 152 H, Total Bilirubin 0.7, Total Protein 5.3 L, Albumin 2.7 L Microbiology Microbiology 10/21/18 Urine Culture - Final, Complete Klebsiella Pneumoniae Discharge Medications Scheduled Folic Acid (Folic Acid) 1 Mg Tablet, 1 MG PO DAILY Multivitamins (Thera M Plus Tablet) 1 Each Tablet, 1 TAB PO DAILY Pantoprazole Sodium (Pantoprazole Sodium) 40 Mg Tablet.dr, 40 MG PO BID Allergies Coded Allergies: No Known Allergies (Unverified , 10/21/18) MAJOR GRACE MD Oct 24, 2018 15:27
--- NOTE | 2018-10-24 16:48 | CR ---
DATE OF CONSULTATION: 10/23/2018 This is a 28-year-old white female who is admitted to [facility] for abdominal pain of unclear etiology. The patient apparently has had previous history of alcoholism in the past. There was some 2-week history of heavy alcohol abuse related to family issues with her current who apparently is in [place]. The patient was drinking vodka daily, it is unclear as to the amount. The patient denies any previous episodes of pancreatitis or blackouts spells. No weight loss. No fevers, night sweats, shaking chills. No melena, hematochezia or bright red blood per rectum. No hematemesis. The patient states over the last 1 month she has had a relapse and has been drinking quite heavily. She presented to the emergency room and laboratory studies showed a lipase of over 1500. The patient is being seen by GI for opinion about the patient's abdominal pain and abnormal imaging. ALLERGIES: No known declared allergies. PAST MEDICAL HISTORY: Alcoholism and nicotine addiction. FAMILY HISTORY: Noncontributory. SOCIAL HISTORY: Cigarettes positive. Alcohol heavily. No history of IV drug abuse. 12-point review of systems noncontributory to the above problems. PHYSICAL EXAMINATION: General: This is a well-developed, well-nourished white female in no acute distress. Appears stated age. Chest was clear to auscultation. Cardiovascular exam showed regular rhythm. Normal physiological split S1-S2. Abdomen: Soft, positive left lower quadrant tenderness and epigastric tenderness. Bowel sounds were positive. Laboratory studies on admission shows an initial white count 4900, hemoglobin and hematocrit is 12.5 and 36.3. The patient's platelet count was 198,000. The labs on 10/23/2018 showed a count of 9 and 28.0 and platelets were 157,000 and white count was 3.7. The patient's chemistry shows some mild bilirubin elevation which has normalized. The patient's AST was 243, ALT was 52, alkaline phosphatase 192 on admission. The patient's bilirubin was normal. The AST is still around 210, AST 53, alkaline phosphatase is 153. Albumin is 2.6. Toxicology was negative for any significant drugs. Alcohol was 0.010 level. The patient had an imaging study on admission included abdominal CT which suggested inflammation of the duodenum and inflammation of the left colon. No complaints of abdominal pain. No complaints of diarrhea or frequent rectal bleeding. No urgency. No fevers, night sweats or shaking chills. The patient's lipase again on admission was elevated to 1186, on 10/22/2018 it was 581. ANALYSIS: 1. Epigastric pain and left-sided tenderness of unknown etiology. At present time the patient has resolving bouts of probable alcohol-induced pancreatitis. 2. Alcoholic hepatitis. The patient's liver functions are consistent with that. Plan will be to see the patient back in the office. Recommendations would include abstinence from all alcohol intake. 3. The patient should be followed at least for a day or so further to be sure that her pain improves. Am not considering any upper endoscopy or colonoscopy as an inpatient and will be happy to see the patient as an outpatient and she has been advised to avoid alcohol abuse.
[2018-10-24] MEDS ORDERED: PANTOPRAZOLE 40MG TAB (PROTONIX) PO SCH (21:00)
== END 2018-10-24 17:05 | disposition home or self-care (01) | DRG 439 ==
LOC: M ED 08:14 → M MSPAV 13:23 → M ED INP 13:23 → M MSPAV 22:00
PROVIDERS: ADMIT Internal Medicine; ATTEND Internal Medicine
DX: K85.20 Alcohol induced acute pancreatitis without necrosis or infection (principal); K51.00 Ulcerative (chronic) pancolitis without complications; F10.20 Alcohol dependence, uncomplicated; F17.210 Nicotine dependence, cigarettes, uncomplicated; E87.6 Hypokalemia; K29.80 Duodenitis without bleeding; K76.0 Fatty (change of) liver, not elsewhere classified; E83.42 Hypomagnesemia; K70.10 Alcoholic hepatitis without ascites

== ENCOUNTER 2018-11-26 19:57 | Inpatient (IN) | payer OTHER ==
[~2018-11-26] VITALS: Ht 162.6 cm; Wt 58.6 kg
[~2018-11-26 19:57] MED LIST: FOLI1TAB11 PO; PANT40TA3 PO; VITMTA PO
[2018-11-26 20:36] LABS: BASO # 0.1 10^3/uL (0.0-0.2); BASO % 1.6 % (0.0-1.0); EOS # 0.1 10^3/uL (0.0-0.5); EOS % 0.8 % (0.0-3.0); HEMOGLOBIN 12.2 g/dl (12.0-15.5); LYMPH # 1.1 10^3/uL (1.5-5.0); LYMPH % 17.3 % (24.0-44.0); MEAN CORPUSCULAR HEMOGLOBIN 33.1 pg (27.0-33.0); MEAN CORPUSCULAR HGB CONC 34.9 g/dl (32.0-36.5); MEAN CORPUSCULAR VOLUME 94.9 fl (80.0-96.0); MONO # 0.7 10^3/uL (0.0-0.8); MONO % 10.6 % (0.0-5.0); NEUTROPHILS # 4.3 10^3/uL (1.5-8.5); NEUTROPHILS % 69.2 % (36.0-66.0); PLATELET COUNT, AUTOMATED 212 10^3/uL (150-450); RED BLOOD COUNT 3.69 10^6/uL (4.00-5.40); WHITE BLOOD COUNT 6.2 10^3/uL (4.0-10.0)
[2018-11-26 21:07] LABS: HCG, SERUM QUALITATIVE NEGATIVE (NEGATIVE)
[2018-11-26 21:14] LABS: ALBUMIN 3.9 GM/DL (3.2-5.2); ALT/SGPT 74 U/L (12-78); BILIRUBIN,DIRECT 1.7 MG/DL (0.0-0.2); BILIRUBIN,TOTAL 2.7 MG/DL (0.2-1.0); BLOOD UREA NITROGEN 3 MG/DL (7-18); CALCIUM LEVEL 8.7 MG/DL (8.5-10.1); CARBON DIOXIDE LEVEL 23 MEQ/L (21-32); CHLORIDE LEVEL 87 MEQ/L (98-107); CREATININE FOR GFR 0.71 MG/DL (0.55-1.30); ETHYL ALCOHOL (ETHANOL) 0.004 % (0.000-0.010); GLOMERULAR FILTRATION RATE > 60.0 (>60); GLUCOSE, FASTING 144 MG/DL (70-100); LIPASE 248 U/L (73-393); POTASSIUM SERUM 2.8 MEQ/L (3.5-5.1); SODIUM LEVEL 129 MEQ/L (136-145); TOTAL PROTEIN 7.5 GM/DL (6.4-8.2)
[2018-11-26] MEDS ORDERED: ONDANSETRON 4MG/2ML VIAL (J2405) IV ONE (21:15)
[2018-11-26] MEDS: MORPHINE 4 MG/ML 1ML VIAL/SYRINGE (J2270) IV PRN (21:30)
[2018-11-26] MEDS ORDERED: GASTROGRAFIN SOLUTION 30ML (Q9963) As Ordered ONE (21:31)
[2018-11-26 21:36] LABS: INR 1.15; PROTHROMBIN TIME 14.4 SECONDS (11.8-14.0)
[2018-11-26 21:37] LABS: AMPHETAMINES LEVEL URINE NEGATIVE (NEGATIVE); BARBITURATES URINE NEGATIVE (NEGATIVE); BENZODIAZEPINES URINE NEGATIVE (NEGATIVE); CANNABINOIDS URINE NEGATIVE (NEGATIVE); COCAINE METABOLITE URINE NEGATIVE (NEGATIVE); METHADONE URINE NEGATIVE (NEGATIVE); OPIATES URINE NEGATIVE (NEGATIVE); PHENCYCLIDINE URINE NEGATIVE (NEGATIVE)
[2018-11-26 21:37] LABS: PARTIAL THROMBOPLASTIN TIME 28.3 SECONDS (25.0-38.4)
[2018-11-26] MEDS: GASTROGRAFIN SOLUTION 30ML PO SCH ×2 (21:43→22:35)
[2018-11-26 21:45] LABS: MAGNESIUM LEVEL 0.7 MG/DL (1.8-2.4)
[2018-11-26] MEDS ORDERED: DILUENT IV ONE (22:00)
[2018-11-26] MEDS ORDERED: MAG SULF 1GM/100ML (MAG RUN) 1 GM in APPROPRIATE DILUENT 1 EA IV ONE (22:00)
[2018-11-26] MEDS ORDERED: NS IV ONE (22:00)
[2018-11-26] MEDS ORDERED: MAGNESIUM OXIDE 400 MG TAB (MAG-OX) PO ONE (22:00)
[2018-11-26] MEDS ORDERED: METOCLOPRAMIDE INJ 10MG/2ML VIAL (J2765) IV ONE (22:15)
[2018-11-26] MEDS ORDERED: ISOVUE-370 76% 100ML VIAL (Q9967) As Ordered ONE (23:07)
--- NOTE | 2018-11-26 23:59 | REPVR ---
PROCEDURE INFORMATION: Exam: CT Abdomen and Pelvis With Contrast Exam date and time: 11/26/2018 11:19 PM Clinical history: 28 years old, female; Abdominal pain; Additional info: Left sided abd pain TECHNIQUE: Imaging protocol: Computed tomography of the abdomen and pelvis with intravenous contrast. Radiation optimization: All CT scans at this facility use at least one of these dose optimization techniques: automated exposure control; mA and/or kV adjustment per patient size (includes targeted exams where dose is matched to clinical indication); or iterative reconstruction. Contrast material: ISO 370; Contrast volume: 100 ml; Contrast route: IV; COMPARISON: CT ABD PELVIS WITH CONTRAST 10/24/2018 12:45 PM FINDINGS: Liver: There is marked diffuse decrease in hepatic parenchymal density, consistent with fatty infiltration. Hepatomegaly. Gallbladder and bile ducts: Normal. No calcified stones. No ductal dilation. Pancreas: Normal. No ductal dilation. Spleen: Normal. No splenomegaly. Adrenals: Left adrenal hyperplasia. Kidneys and ureters: Normal. No hydronephrosis. Stomach and bowel: Unremarkable. No obstruction. No mucosal thickening. Appendix: No evidence of appendicitis. Intraperitoneal space: Previously demonstrated minimal ascites has resolved. Vasculature: Unremarkable. No abdominal aortic aneurysm. Lymph nodes: Unremarkable. No enlarged lymph nodes. Bladder: The bladder is partially collapsed and there is evidence of perivesicular air demonstrated along the anterior-inferior margin of the bladder as well as demonstrating intravesicular air and a small amount of air within the anterior bladder wall. Finding may be the sequelae of emphysematous cystitis in the absence of any known trauma. Reproductive: Unremarkable as visualized. Bones/joints: Unremarkable. No acute fracture. Soft tissues: Unremarkable. IMPRESSION: 1. There is marked diffuse decrease in hepatic parenchymal density, consistent with fatty infiltration. Hepatomegaly. 2. There is perivesicular air demonstrated along the anterior-inferior margin of the bladder, intravesicular air, and a small amount of air within the anterior bladder wall. Finding may be the sequelae of emphysematous cystitis in the absence of any known trauma. 3. Previously demonstrated minimal ascites has resolved. THIS REPORT CONTAINS FINDINGS THAT MAY BE CRITICAL TO PATIENT CARE. The findings were verbally communicated via telephone conference with BETTY FLORES at 11:58 PM EDT on 11/26/2018. The findings were acknowledged and understood. Electronically signed by: Kody Hernandez On 11/26/2018 23:59:20 PM
[2018-11-27] VITALS (10 sets, daily range): BP systolic 91–106; BP diastolic 60–83
[2018-11-27] MEDS ORDERED: PIPERACILLIN/TAZOBACTAM SOD 3.375 GM in D5W MINI-BAG PLUS 50 ML IV ONE ×2
[2018-11-27] MEDS ORDERED: LORazepam 2 MG/ML VIAL (J2060) IV STA (00:16)
[2018-11-27] MEDS ORDERED: NEXP1IMP SC (00:38)
[2018-11-27] MEDS ORDERED: MULTCAP PO (00:38)
[2018-11-27] MEDS ORDERED: POTASSIUM CHLORIDE 10 MEQ SR TABLET PO ONE ×4 (00:45→13:00)
[2018-11-27] MEDS: KCL 10MEQ/100ML SWI (KRUN) 10 MEQ in APPROPRIATE DILUENT 1 EA IV SCH ×3 (00:51→02:00)
[2018-11-27] MEDS ORDERED: MOM 30ML SUSPENSION UDC PO PRN (01:00)
[2018-11-27] MEDS ORDERED: MAALOX 30 ML SUSP *UDC PO PRN (01:00)
[2018-11-27] MEDS ORDERED: ACETAMINOPHEN TAB 650MG DOSE (2X325MG) PO PRN (01:00)
[2018-11-27] MEDS ORDERED: NS 1,000 ML IV SCH (01:15)
[2018-11-27] MEDS ORDERED: LR 1,000 ML IV SCH (01:15)
[2018-11-27] MEDS ORDERED: LORazepam 2 MG TAB PO PRN (01:15)
[2018-11-27] MEDS ORDERED: MAG SULF 1GM/100ML (MAG RUN) 1 GM in APPROPRIATE DILUENT 1 EA IV ONE ×2 (01:30→06:00)
[2018-11-27] MEDS: MORPHINE 4 MG/ML 1ML VIAL/SYRINGE (J2270) IV PRN ×7 (01:40→21:40)
[2018-11-27] MEDS: NS 1,000 ML IV SCH ×4 (01:44→15:45)
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
[2018-11-27] MEDS ORDERED: KCL 10MEQ/100ML SWI (KRUN) 100 ML IV SCH (03:00)
[2018-11-27 05:04] LABS: BASO % 0.9 % (0.0-1.0); EOS # 0.1 10^3/uL (0.0-0.5); EOS % 1.1 % (0.0-3.0); HEMATOCRIT 26.9 % (36.0-47.0); LYMPH % 21.9 % (24.0-44.0); MEAN CORPUSCULAR HEMOGLOBIN 33.1 pg (27.0-33.0); MEAN CORPUSCULAR HGB CONC 34.6 g/dl (32.0-36.5); MEAN CORPUSCULAR VOLUME 95.7 fl (80.0-96.0); MONO # 0.4 10^3/uL (0.0-0.8); NEUTROPHILS % 66.9 % (36.0-66.0); PLATELET COUNT, AUTOMATED 160 10^3/uL (150-450); RED BLOOD COUNT 2.81 10^6/uL (4.00-5.40); WHITE BLOOD COUNT 4.4 10^3/uL (4.0-10.0)
[2018-11-27 05:13] LABS: HEMOGLOBIN 9.3 g/dl (12.0-15.5)
[2018-11-27] MEDS: PIPERACILLIN/TAZOBACTAM SOD 3.375 GM in D5W MINI-BAG PLUS 50 ML IV SCH ×3 (05:17→18:28)
[2018-11-27 05:32] LABS: ALBUMIN 3.1 GM/DL (3.2-5.2); ALT/SGPT 49 U/L (12-78); BILIRUBIN,TOTAL 2.6 MG/DL (0.2-1.0); BLOOD UREA NITROGEN 3 MG/DL (7-18); CALCIUM LEVEL 7.2 MG/DL (8.5-10.1); CARBON DIOXIDE LEVEL 27 MEQ/L (21-32); CHLORIDE LEVEL 97 MEQ/L (98-107); CREATININE FOR GFR 0.44 MG/DL (0.55-1.30); GLOMERULAR FILTRATION RATE > 60.0 (>60); GLUCOSE, FASTING 87 MG/DL (70-100); MAGNESIUM LEVEL 1.8 MG/DL (1.8-2.4); POTASSIUM SERUM 3.2 MEQ/L (3.5-5.1); SODIUM LEVEL 134 MEQ/L (136-145)
[2018-11-27] MEDS ORDERED: ONDANSETRON 4MG/2ML VIAL (J2405) IV PRN (08:00)
[2018-11-27] MEDS ORDERED: KCL 10MEQ/100ML SWI (KRUN) 10 MEQ in APPROPRIATE DILUENT 1 EA IV SCH (08:00)
[2018-11-27] MEDS: FOLIC ACID 1 MG TAB PO SCH (08:42)
[2018-11-27] MEDS: MULTIVITAMINS/MINERALS THERAP 1 TAB PO SCH (08:43)
[2018-11-27] MEDS: ENOXAPARIN 40 MG/0.4 ML SYRINGE (J1650) SC SCH (08:43)
[2018-11-27] MEDS: THIAMINE 100 MG TAB PO SCH ×2 (08:43→21:39)
--- NOTE | 2018-11-27 10:36 | REP ---
Abdominal right upper quadrant ultrasound for elevated liver function test: Study is correlated with the CT of the abdomen pelvis dated 11/26/2018. There is no cholelithiasis, gallbladder wall thickening or pericholecystic fluid. There is no intrahepatic or extrahepatic biliary duct dilatation. The common biliary duct measures 3.1 mm in diameter. The hepatic parenchyma is diffusely hyperechoic. This is compatible with steatosis. There are no focal hepatic masses. The visualized areas of the pancreas are unremarkable. The right kidney is normal size measuring 11.3 x 5.2 x 3.9 cm. There is no right renal calculus, hydronephrosis, cyst or solid mass. There is no right upper quadrant ascites. Impression: The hepatic parenchyma is diffusely hyperechoic compatible with steatosis. There are no hepatic masses. There is no ascites. Otherwise, negative abdominal right upper quadrant ultrasound. Electronically Signed by Gilbert De La O MD 11/27/2018 10:28 A
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
--- NOTE | 2018-11-27 17:00 | IPNPDOC ---
Text Note Date of Service The patient was seen on 11/27/18. NOTE H+P reviewed. Patient admitted after midnight on 11/27. Patient may downgrade to med/surg with tele. Replace potassium this am Await urology input Continue IV abx AVSS - soft tissue crepitus with suprapubic tenderness to palpation - remainder of exam benign BRUCE WALLER MD Nov 27, 2018 17:00
--- NOTE | 2018-11-27 21:20 | ECGEPIP ---
[facility] - ED Test Date: 2018-11-26 Pat Name: AVIVA MAIER Department: Room: [place] [address] Gender: Female Direct Care Professional: : 1990 Requested By: BTETY Mohan Order Number: [id number] Reading MD: Aubrey Ibarra Measurements Intervals [place] Rate: 94 P: 30 UT: 135 QRS: 37 QRSD: 88 T: 24 QT: 356 QTc: 447 Interpretive Statements SINUS RHYTHM Low QRS complex voltage in the limb leads Nonspecific ST-T wave abnormalities Baseline artifact Electronically Signed on 11-27-2018 21:20:05 EDT by Aubrey Ibarra
[2018-11-28] VITALS (7 sets, daily range): BP systolic 96–100; BP diastolic 64–69
[2018-11-28] MEDS: PIPERACILLIN/TAZOBACTAM SOD 3.375 GM in D5W MINI-BAG PLUS 50 ML IV SCH ×4 (00:38→17:33)
[2018-11-28] MEDS: NS 1,000 ML IV SCH (00:38)
[2018-11-28] MEDS: MORPHINE 4 MG/ML 1ML VIAL/SYRINGE (J2270) IV PRN ×5 (05:51→19:51)
[2018-11-28 06:57] LABS: BASO % 0.9 % (0.0-1.0); EOS # 0.1 10^3/uL (0.0-0.5); EOS % 2.9 % (0.0-3.0); HEMATOCRIT 25.9 % (36.0-47.0); HEMOGLOBIN 8.5 g/dl (12.0-15.5); LYMPH # 0.7 10^3/uL (1.5-5.0); LYMPH % 15.4 % (24.0-44.0); MEAN CORPUSCULAR HEMOGLOBIN 33.1 pg (27.0-33.0); MEAN CORPUSCULAR HGB CONC 32.8 g/dl (32.0-36.5); MEAN CORPUSCULAR VOLUME 100.8 fl (80.0-96.0); MONO # 0.4 10^3/uL (0.0-0.8); MONO % 9.4 % (0.0-5.0); NEUTROPHILS # 3.2 10^3/uL (1.5-8.5); NEUTROPHILS % 70.5 % (36.0-66.0); PLATELET COUNT, AUTOMATED 165 10^3/uL (150-450); RED BLOOD COUNT 2.57 10^6/uL (4.00-5.40); WHITE BLOOD COUNT 4.5 10^3/uL (4.0-10.0)
[2018-11-28 07:38] LABS: ALBUMIN 2.6 GM/DL (3.2-5.2); ALT/SGPT 49 U/L (12-78); BILIRUBIN,TOTAL 2.1 MG/DL (0.2-1.0); BLOOD UREA NITROGEN 1 MG/DL (7-18); CALCIUM LEVEL 7.6 MG/DL (8.5-10.1); CARBON DIOXIDE LEVEL 23 MEQ/L (21-32); CHLORIDE LEVEL 103 MEQ/L (98-107); CREATININE FOR GFR 0.38 MG/DL (0.55-1.30); GLOMERULAR FILTRATION RATE > 60.0 (>60); GLUCOSE, FASTING 109 MG/DL (70-100); MAGNESIUM LEVEL 1.9 MG/DL (1.8-2.4); SODIUM LEVEL 136 MEQ/L (136-145); TOTAL PROTEIN 5.5 GM/DL (6.4-8.2)
[2018-11-28] MEDS: MULTIVITAMINS/MINERALS THERAP 1 TAB PO SCH (09:00)
[2018-11-28] MEDS: ENOXAPARIN 40 MG/0.4 ML SYRINGE (J1650) SC SCH (09:00)
[2018-11-28] MEDS: FOLIC ACID 1 MG TAB PO SCH (09:00)
[2018-11-28] MEDS: THIAMINE 100 MG TAB PO SCH ×2 (09:00→20:20)
--- NOTE | 2018-11-28 10:00 | IPNPDOC ---
Text Note Date of Service The patient was seen on 11/28/18. NOTE Patient was seen and is still having quite a lot of suprapubic pain and tende rness. They had checked her post void residuals and these are all quite low-dose so she is emptying her bladder completely. She had a temperature overnight of 99.1 and her urine cultures show Klebsiella and her blood cultures appear positive for gram-positive cocci. Physical examination: She still has some mild left CVA tenderness. She still has very significant lower abdominal pain and tenderness. There is no calf swelling or edema. Impression: -Emphysematous cystitis with a urine culture showing Klebsiella and blood cultures positive for gram-positive cocci with a temperature of 99.1 last night -Patient who is an alcoholic and is most likely immunocompromised the reason for the above with a white blood count of only 4.5 today who did have elevated lactic acid levels but now back to normal -Anemia today of questionable etiology with her hemoglobin 8.5 and hematocrit 25.9 Plan: -No urologic intervention needed just continued antibiotic coverage and medical management VS,Toribio, I+O VSToribio, I+O Laboratory Tests 11/28/18 06:34 Red Blood Count 2.57 L, Mean Corpuscular Volume 100.8 H, Mean Corpuscular Hemoglobin 33.1 H, Mean Corpuscular Hemoglobin Concent 32.8, Red Cell Distribution Width 13.6, Neutrophils (%) (Auto) 70.5 H, Lymphocytes (%) (Auto) 15.4 L, Monocytes (%) (Auto) 9.4 H, Eosinophils (%) (Auto) 2.9, Basophils (%) ( Auto) 0.9, Neutrophils # (Auto) 3.2, Lymphocytes # (Auto) 0.7 L, Monocytes # (Auto) 0.4, Eosinophils # (Auto) 0.1, Basophils # (Auto) 0.0, Calcium Level 7.6 L, Aspartate Amino Transf (AST/SGOT) 224 H, Alanine Aminotransferase (ALT/SGPT) 49, Alkaline Phosphatase 200 H, Total Bilirubin 2.1 H, Total Protein 5.5 L, Albumin 2.6 L Vital Signs Date Time Temp Pulse Resp B/P (MAP) Pulse Ox O2 Delivery O2 Flow Rate FiO2 11/28/18 06:01 15 11/28/18 06:00 99.1 82 97/67 (77) 96 11/27/18 02:42 Room Air I&O- Last 24 Hours up to 6 AM 11/28/18 06:00 Intake Total 2350 ml Output Total 1700 ml Balance 650 ml STALIN GIBSON MD Nov 28, 2018 10:00
--- NOTE | 2018-11-28 15:45 | IPNPDOC ---
Text Note Date of Service The patient was seen on 11/28/18. NOTE Subjective: -Patient still having quite a lot of suprapubic pain and tenderness. -Overnight Tmax of 99.1, while urine cultures show Klebsiella and blood cultures show GPCs in clusters Objective: Vitals: See below General: Mild discomfort, otherwise speaking in full sentences, eating breakfast HEENT: NCAT, PERRLA, EOMI, no icterus, no significant pallor Chest: CTAB, moving air well, no crackles or chest wall tenderness Cardiac: RRR, no mrg Abd: soft, tender lower quadrants and suprapubic region, exquisite left flank pain, mild right flank pain, normoactive bowel sounds Ext: No edema, WWP Labs: see below Imaging: reviewed Assessment: 28 yo W with alcohol use disorder who presented with abdominal pain and found to have emphysematous cystitis with a urine culture showing Klebsiella and blood cultures positive for gram-positive cocci in clusters with a persistent low grade temp while on zosyn as well as developing leukopenia and anemia s/p fluids. Plan: Acute Emphysematous Cystitis: -Klebs UTI and GPCs in clusters blood cultures --> currently on zosyn, adding vanc until cultures result to cover MRSA bacteremia given leukopenia and low grade temp -Urology consulted, appreciate recs, no intervention planned at this time, to treat infection Severe Electrolyte Derangements: Hyponatremia, Hypokalemia, Hypomagnesemia in the setting of alcohol use disorder -replete lytes PRN -PCU with Tele -On IVF Abnormal LFTs: likely int he setting of alcohol use disorder -monitor for now -follow up abdominal US Heavy Alcohol use Hx - CIWA, Thiamine, Folate DVT ppx: lovenox VS,Fishbone, I+O VS, Fishbone, I+O Laboratory Tests 11/28/18 06:34 Red Blood Count 2.57 L, Mean Corpuscular Volume 100.8 H, Mean Corpuscular Hemog lobin 33.1 H, Mean Corpuscular Hemoglobin Concent 32.8, Red Cell Distribution Width 13.6, Neutrophils (%) (Auto) 70.5 H, Lymphocytes (%) (Auto) 15.4 L, Monocytes (%) (Auto) 9.4 H, Eosinophils (%) (Auto) 2.9, Basophils (%) (Auto) 0.9, Neutrophils # (Auto) 3.2, Lymphocytes # (Auto) 0.7 L, Monocytes # (Auto) 0.4, Eosinophils # (Auto) 0.1, Basophils # (Auto) 0.0, Calcium Level 7.6 L, Aspartate Amino Transf (AST/SGOT) 224 H, Alanine Aminotransferase (ALT/SGPT) 49, Alkaline Phosphatase 200 H, Total Bilirubin 2.1 H, Total Protein 5.5 L, Albumin 2.6 L Vital Signs Date Time Temp Pulse Resp B/P (MAP) Pulse Ox O2 Delivery O2 Flow Rate FiO2 11/28/18 14:00 99.3 88 18 97/67 (77) 99 11/27/18 02:42 Room Air I&O- Last 24 Hours up to 6 AM 11/28/18 06:00 Intake Total 2350 ml Output Total 1700 ml Balance 650 ml EULALIO DIETRICH MD Nov 28, 2018 15:45
[2018-11-28] MEDS ORDERED: VANCOMYCIN HCL 1,000 MG, VIAL MATE ADAPTER 1 EACH in D5W 250 ML IV ONE (17:00)
--- NOTE | 2018-11-28 23:02 | PHACANCOPD ---
PHARMACY VANCOMYCIN DOSING Pt Demographics Demographics Patient Age:28 , Weight:54.600 , Gender: female Adjusted Body Weight Vancomycin Vancomycin indication: Emperic Vancomycin Target Ranges: 10-20 mcg/ml Vancomycin Load Y/N: Yes Load Dose Date Time Vancomycin Load Dose: 1GM Date: 11/28/18 Time: 18:00 Vancomycin Dose Date: 11/29/18. Current Vancomycin Dose: [750MG IV Q8H (01:00)] Intermittent Dosing?: No Labs Labs Laboratory Tests 11/28/18 06:34 Red Blood Count 2.57 L, Mean Corpuscular Volume 100.8 H, Mean Corpuscular Hemoglobin 33.1 H, Mean Corpuscular Hemoglobin Concent 32.8, Red Cell Distribution Width 13.6, Neutrophils (%) (Auto) 70.5 H, Lymphocytes (%) (Auto) 15.4 L, Monocytes (%) (Auto) 9.4 H, Eosinophils (%) (Auto) 2.9, Basophils (%) (Auto) 0.9, Neutrophils # (Auto) 3.2, Lymphocytes # (Auto) 0.7 L, Monocytes # (Auto) 0.4, Eosinophils # (Auto) 0.1, Basophils # (Auto) 0.0, Calcium Level 7.6 L, Aspartate Amino Transf (AST/SGOT) 224 H, Alanine Aminotransferase (ALT/SGPT) 49, Alkaline Phosphatase 200 H, Total Bilirubin 2.1 H, Total Protein 5.5 L, Albumin 2.6 L Micro Microbiology 11/26/18 Blood Culture - Preliminary, Resulted 11/26/18 Blood Culture - Preliminary, Resulted No Growth after 48 hours. All Specime... 11/26/18 Urine Culture - Final, Complete Klebsiella Pneumoniae Creatinine Clearance Date:11/28/18. Creatinine Clearance: [>80ml/min]. Assessment and Plan Maintaining Current Dose?: Yes Reason for dose change: No Dose Change Pharmacist Note Pharmacist Note Date: 11/28/18. PharmD note: 1GM IV VANCO LOAD in the ER 18:00. WE WILL FOLLOW WITH VANCO 750MG IV Q8H STARTING AT 01:00 11/29 AND OBTAIN A VANCO TROUGH WHEN SHE IS AT [facility] Nov 28, 2018 23:02
[2018-11-29] VITALS (8 sets, daily range): BP systolic 90–100; BP diastolic 66–69
[2018-11-29] MEDS: PIPERACILLIN/TAZOBACTAM SOD 3.375 GM in D5W MINI-BAG PLUS 50 ML IV SCH ×3 (00:36→12:35)
[2018-11-29] MEDS: VANCOMYCIN HCL 750 MG, VIAL MATE ADAPTER 1 EACH in D5W 250 ML IV SCH ×2 (00:36→10:01)
[2018-11-29] MEDS: MORPHINE 4 MG/ML 1ML VIAL/SYRINGE (J2270) IV PRN ×6 (04:09→20:16)
[2018-11-29 07:00] LABS: BASO # 0.1 10^3/uL (0.0-0.2); EOS # 0.2 10^3/uL (0.0-0.5); EOS % 3.2 % (0.0-3.0); HEMATOCRIT 27.5 % (36.0-47.0); HEMOGLOBIN 8.9 g/dl (12.0-15.5); LYMPH # 0.9 10^3/uL (1.5-5.0); MEAN CORPUSCULAR HEMOGLOBIN 32.6 pg (27.0-33.0); MEAN CORPUSCULAR HGB CONC 32.4 g/dl (32.0-36.5); MEAN CORPUSCULAR VOLUME 100.7 fl (80.0-96.0); MONO # 0.5 10^3/uL (0.0-0.8); MONO % 9.7 % (0.0-5.0); NEUTROPHILS # 3.4 10^3/uL (1.5-8.5); NEUTROPHILS % 67.3 % (36.0-66.0); PLATELET COUNT, AUTOMATED 211 10^3/uL (150-450); RED BLOOD COUNT 2.73 10^6/uL (4.00-5.40); WHITE BLOOD COUNT 5.1 10^3/uL (4.0-10.0)
[2018-11-29 07:19] LABS: ALBUMIN 2.6 GM/DL (3.2-5.2); ALT/SGPT 52 U/L (12-78); BILIRUBIN,TOTAL 1.9 MG/DL (0.2-1.0); BLOOD UREA NITROGEN < 1 MG/DL (7-18); CALCIUM LEVEL 8.2 MG/DL (8.5-10.1); CARBON DIOXIDE LEVEL 21 MEQ/L (21-32); CHLORIDE LEVEL 107 MEQ/L (98-107); CREATININE FOR GFR 0.41 MG/DL (0.55-1.30); GLOMERULAR FILTRATION RATE > 60.0 (>60); GLUCOSE, FASTING 114 MG/DL (70-100); MAGNESIUM LEVEL 1.5 MG/DL (1.8-2.4); POTASSIUM SERUM 3.7 MEQ/L (3.5-5.1); SODIUM LEVEL 137 MEQ/L (136-145); TOTAL PROTEIN 5.5 GM/DL (6.4-8.2)
[2018-11-29] MEDS ORDERED: POTASSIUM CHLORIDE 10 MEQ SR TABLET PO ONE (07:30)
--- NOTE | 2018-11-29 07:35 | IPNPDOC ---
Text Note Date of Service The patient was seen on 11/29/18. NOTE Subjective: -Patient with some improvement in her ongoing suprapubic pain and tenderness. -24h Tmax of 100, with soft BPs while urine cultures show Klebsiella and blood cultures show GPCs in clusters and MRSA PCR was negative. Added vanc yesterday Objective: Vitals: See below General: Mild discomfort, otherwise speaking in full sentences HEENT: NCAT, PERRLA, EOMI, no icterus, no significant pallor Chest: CTAB, no crackles, dullness or wheezing Cardiac: RRR, no mrg Abd: soft, tender lower quadrants and suprapubic region, moderate left flank pain, mild right flank pain, normoactive bowel sounds Ext: No edema, WWP Labs: see below Imaging: reviewed Assessment: 28 yo W with alcohol use disorder who presented with abdominal pain and found to have emphysematous cystitis with a urine culture showing Klebsiella and blood cultures positive for gram-positive cocci in clusters with a persistent low grade temp while on zosyn, so vanc added in the last 24h, however MRSA PCR was negative but will keep vanc onboard until blood cultures result. Plan: Acute Emphysematous Cystitis: -Klebs UTI and GPCs in clusters blood cultures --> currently on vanc/zosyn, until blood culture results at which point will de-escalate as indicated -follow up 09/28 blood cultures, concerned that 09/26 BCx GPCs in clusters may be a contaminant but thus far covering appropriately -Urology consulted, appreciate recs, no intervention planned at this time, to treat infection Severe Electrolyte Derangements: Hyponatremia, Hypokalemia, Hypomagnesemia in the setting of alcohol use disorder -replete lytes PRN -PCU with Tele -On IVF Abnormal LFTs: likely int he setting of alcohol use disorder -monitor for now -follow up abdominal US Heavy Alcohol use Hx - CIWA, Thiamine, Folate DVT ppx: lovenox VS,Fishbone, I+O VS, Fishbone, I+O Laboratory Tests 11/29/18 06:35 Red Blood Count 2.73 L, Mean Corpuscular Volume 100.7 H, Mean Corpuscular Hemo globin 32.6, Mean Corpuscular Hemoglobin Concent 32.4, Red Cell Distribution Width 13.9, Neutrophils (%) (Auto) 67.3 H, Lymphocytes (%) (Auto) 18.0 L, Monocytes (%) (Auto) 9.7 H, Eosinophils (%) (Auto) 3.2 H, Basophils (%) (Auto) 1.0, Neutrophils # (Auto) 3.4, Lymphocytes # (Auto) 0.9 L, Monocytes # (Auto) 0.5, Eosinophils # (Auto) 0.2, Basophils # (Auto) 0.1, Calcium Level 8.2 L, Aspartate Amino Transf (AST/SGOT) 184 H, Alanine Aminotransferase (ALT/SGPT) 52, Alkaline Phosphatase 207 H, Total Bilirubin 1.9 H, Total Protein 5.5 L, Albumin 2.6 L Vital Signs Date Time Temp Pulse Resp B/P (MAP) Pulse Ox O2 Delivery O2 Flow Rate FiO2 11/29/18 06:00 99.1 71 16 91/66 (74) 95 11/27/18 02:42 Room Air I&O- Last 24 Hours up to 6 AM 11/29/18 05:59 Intake Total 3120 ml Output Total 3275 ml Balance -155 ml EULALIO DIETRICH MD Nov 29, 2018 07:35
[2018-11-29] MEDS ORDERED: MAG SULF 1GM/100ML (MAG RUN) 1 GM in APPROPRIATE DILUENT 1 EA IV ONE (08:00)
[2018-11-29] MEDS: MULTIVITAMINS/MINERALS THERAP 1 TAB PO SCH (08:46)
[2018-11-29] MEDS: THIAMINE 100 MG TAB PO SCH ×2 (08:46→20:15)
[2018-11-29] MEDS: ENOXAPARIN 40 MG/0.4 ML SYRINGE (J1650) SC SCH (08:47)
[2018-11-29] MEDS: FOLIC ACID 1 MG TAB PO SCH (08:47)
--- NOTE | 2018-11-29 09:43 | IPNPDOC ---
Text Note Date of Service The patient was seen on 11/29/18. NOTE Patient was seen and is still having quite a lot of suprapubic pain and tende rness. It is not as constant as it was but it still quite bothersome. Physical examination: She still has some mild left CVA tenderness. She still has very significant lower abdominal pain and tenderness. There is no calf swelling or edema. Impression: -Emphysematous cystitis with a urine culture showing Klebsiella and blood cultures positive for Staph with a Tmax of 100 last night -Patient who is an alcoholic and is most likely immunocompromised the reason for the above with a white blood count of only 4.5 today -Electrolyte abnormalities secondary to alcohol abuse -Anemia today of questionable etiology with her hemoglobin 8.5 and hematocrit 25.9 Plan: -No urologic intervention needed just continued antibiotic coverage and medical management VS,Fishbone, I+O VS, Fishbone, I+O Laboratory Tests 11/29/18 06:35 Red Blood Count 2.73 L, Mean Corpuscular Volume 100.7 H, Mean Corpuscular Hemoglobin 32.6, Mean Corpuscular Hemoglobin Concent 32.4, Red Cell Distribution Width 13.9, Neutrophils (%) (Auto) 67.3 H, Lymphocytes (%) (Auto) 18.0 L, M onocytes (%) (Auto) 9.7 H, Eosinophils (%) (Auto) 3.2 H, Basophils (%) (Auto) 1.0, Neutrophils # (Auto) 3.4, Lymphocytes # (Auto) 0.9 L, Monocytes # (Auto) 0.5, Eosinophils # (Auto) 0.2, Basophils # (Auto) 0.1, Calcium Level 8.2 L, Aspartate Amino Transf (AST/SGOT) 184 H, Alanine Aminotransferase (ALT/SGPT) 52, Alkaline Phosphatase 207 H, Total Bilirubin 1.9 H, Total Protein 5.5 L, Albumin 2.6 L Vital Signs Date Time Temp Pulse Resp B/P (MAP) Pulse Ox O2 Delivery O2 Flow Rate FiO2 11/29/18 08:56 16 11/29/18 06:30 71 91/66 11/29/18 06:00 99.1 95 11/27/18 02:42 Room Air I&O- Last 24 Hours up to 6 AM 11/29/18 06:00 Intake Total 2920 ml Output Total 2125 ml Balance 795 ml STALIN GIBSON MD Nov 29, 2018 09:43
[2018-11-29] MEDS: ceFAZolin SOD 1 GM in D5W MINI-BAG PLUS 50 ML IV SCH (17:16)
[2018-11-30] MEDS: MORPHINE 4 MG/ML 1ML VIAL/SYRINGE (J2270) IV PRN ×3 (00:49→09:37)
[2018-11-30] MEDS: ceFAZolin SOD 1 GM in D5W MINI-BAG PLUS 50 ML IV SCH ×2 (00:49→09:38)
[2018-11-30 07:00] VITALS: BP 114/78
[2018-11-30 07:09] VITALS: BP 114/78
--- NOTE | 2018-11-30 08:26 | IPNPDOC ---
Text Note Date of Service The patient was seen on 11/30/18. NOTE Subjective: -Improved pain but disk and tape machine tender and still requiring round the clock pain control, though she notes that it has improved. -Improved BPs and Tmax of 99.1 over the last 24h Objective: Vitals: See below General: NAD, otherwise speaking in full sentences HEENT: NCAT, PERRLA, EOMI, no icterus, no significant pallor Chest: CTAB, no crackles, dullness or wheezing Cardiac: RRR, no mrg Abd: soft, persistent tender lower quadrants and suprapubic region, moderate left flank pain, mild right flank pain, normoactive bowel sounds Ext: No edema, WWP Labs: see below Imaging: reviewed Assessment: 28 yo W with alcohol use disorder who presented with abdominal pain and found to have emphysematous cystitis with a urine culture showing Klebsiella and blood cultures positive for gram-positive cocci in clusters with a persistent low grade temp while on zosyn, so vanc added in the last 24h, however MRSA PCR was negative but will keep vanc onboard until blood cultures result. Plan: Acute Emphysematous Cystitis: -Klebs UTI and staph capitis in blood from admission, switched from vanc/zosyn to ancef per sensitivities. follow up blood cultures remain negative at this time. -follow up 09/28 blood cultures -Urology consulted, appreciate recs, no intervention planned at this time, to treat infection -Will plan to switch to keflex tomorrow AM Severe Electrolyte Derangements: Hyponatremia, Hypokalemia, Hypomagnesemia in the setting of alcohol use disorder -replete lytes PRN -PCU with Tele -On IVF Abnormal LFTs: likely int he setting of alcohol use disorder -abdominal US showed steatosis but was otherwise normal -LFTs now improving, monitor for now Heavy Alcohol use Hx - CIWA, Thiamine, Folate DVT ppx: lovenox VS,Fishbone, I+O VS, Fishbone, I+O Vital Signs Date Time Temp Pulse Resp B/P (MAP) Pulse Ox O2 Delivery O2 Flow Rate FiO2 11/30/18 07:09 98.7 78 20 114/78 (90) 98 11/27/18 02:42 Room Air I&O- Last 24 Hours up to 6 AM 11/30/18 05:59 Intake Total 3970 ml Output Total 2350 ml Balance 1620 ml EULALIO DIETRICH MD Nov 30, 2018 08:26
[2018-11-30 08:36] LABS: BASO # 0.1 10^3/uL (0.0-0.2); BASO % 1.2 % (0.0-1.0); EOS # 0.1 10^3/uL (0.0-0.5); EOS % 2.9 % (0.0-3.0); HEMATOCRIT 28.3 % (36.0-47.0); LYMPH # 0.9 10^3/uL (1.5-5.0); LYMPH % 17.6 % (24.0-44.0); MEAN CORPUSCULAR HEMOGLOBIN 33.7 pg (27.0-33.0); MEAN CORPUSCULAR HGB CONC 31.8 g/dl (32.0-36.5); MONO # 0.6 10^3/uL (0.0-0.8); MONO % 12.9 % (0.0-5.0); NEUTROPHILS # 3.1 10^3/uL (1.5-8.5); NEUTROPHILS % 64.4 % (36.0-66.0); PLATELET COUNT, AUTOMATED 265 10^3/uL (150-450); RED BLOOD COUNT 2.67 10^6/uL (4.00-5.40); WHITE BLOOD COUNT 4.8 10^3/uL (4.0-10.0)
[2018-11-30 09:11] LABS: ALBUMIN 2.7 GM/DL (3.2-5.2); ALT/SGPT 54 U/L (12-78); BILIRUBIN,TOTAL 1.5 MG/DL (0.2-1.0); BLOOD UREA NITROGEN < 1 MG/DL (7-18); CALCIUM LEVEL 8.3 MG/DL (8.5-10.1); CARBON DIOXIDE LEVEL 27 MEQ/L (21-32); CHLORIDE LEVEL 105 MEQ/L (98-107); CREATININE FOR GFR 0.38 MG/DL (0.55-1.30); GLOMERULAR FILTRATION RATE > 60.0 (>60); GLUCOSE, FASTING 105 MG/DL (70-100); MAGNESIUM LEVEL 1.6 MG/DL (1.8-2.4); POTASSIUM SERUM 3.2 MEQ/L (3.5-5.1); SODIUM LEVEL 139 MEQ/L (136-145); TOTAL PROTEIN 5.8 GM/DL (6.4-8.2)
[2018-11-30] MEDS: MULTIVITAMINS/MINERALS THERAP 1 TAB PO SCH (09:38)
[2018-11-30] MEDS: FOLIC ACID 1 MG TAB PO SCH (09:38)
[2018-11-30] MEDS: ENOXAPARIN 40 MG/0.4 ML SYRINGE (J1650) SC SCH (09:38)
[2018-11-30] MEDS ORDERED: MAG SULF 1GM/100ML (MAG RUN) 1 GM in APPROPRIATE DILUENT 1 EA IV ONE (10:30)
[2018-11-30] MEDS ORDERED: POTASSIUM CHLORIDE 10 MEQ SR TABLET PO ONE (10:30)
[2018-11-30 11:37] VITALS: BP 108/75
[2018-11-30] MEDS: oxyCODONE 5MG TAB PO PRN ×3 (13:28→22:56)
[2018-11-30 14:31] VITALS: BP 108/76
--- NOTE | 2018-11-30 15:34 | IPNPDOC ---
Text Note Date of Service The patient was seen on 11/30/18. NOTE Patient was seen and is still having suprapubic pain and tenderness but it is less severe every day although still requiring quite a bit of pain medication. Physical examination: She still has some mild left CVA tenderness. She still has very significant lower abdominal pain and tenderness. There is no calf swelling or edema. Impression: -Emphysematous cystitis with a urine culture showing Klebsiella and blood cultures positive for Staph with a Tmax of 100 last night and she was being switched from IV antibiotics to Keflex today after negative blood culture -Patient who is an alcoholic and is most likely immunocompromised the reason for the above with a white blood count of only 4.5 today -Electrolyte abnormalities secondary to alcohol abuse -Anemia today of questionable etiology with her hemoglobin 8.5 and hematocrit 25.9 Plan: -No urologic intervention needed just continued antibiotic coverage and medical management -I will be signing off. I did sign the patient how to Dr. Portillo who is part of [facility] in case there is a problem over the weekend since we have no urologic coverage. At this point though I don't see any need for urologic intervention. I would recommend follow-up in our office in approximately 1 month probably with an abdominal ultrasound prior. VS,Toribio, I+O VS, Toribio, I+O Laboratory Tests 11/30/18 07:22 Red Blood Count 2.67 L, Mean Corpuscular Volume 106.0 H, Mean Corpuscular Hemoglobin 33.7 H, Mean Corpuscular Hemoglobin Concent 31.8 L, Red Cell Distribution Width 14.5, Neutrophils (%) (Auto) 64.4, Lymphocytes (%) (Auto) 17.6 L, Monocytes (%) (Auto) 12.9 H, Eosinophils (%) (Auto) 2.9, Basophils (%) (Auto) 1.2 H, Neutrophils # (Auto) 3.1, Lymphocytes # (Auto) 0.9 L, Monocytes # (Auto) 0.6, Eosinophils # (Auto) 0.1, Basophils # (Auto) 0.1, Calcium Level 8.3 L, Aspartate Amino Transf (AST/SGOT) 165 H, Alanine Aminotransferase (ALT/SGPT) 54, Alkaline Phosphatase 218 H, Total Bilirubin 1.5 H, Total Protein 5.8 L, Albumin 2.7 L Vital Signs Date Time Temp Pulse Resp B/P (MAP) Pulse Ox O2 Delivery O2 Flow Rate FiO2 11/30/18 13:58 16 11/30/18 07:09 98.7 78 114/78 (90) 98 11/27/18 02:42 Room Air I&O- Last 24 Hours up to 6 AM 11/30/18 06:00 Intake Total 4170 ml Output Total 2750 ml Balance 1420 ml STALIN GIBSON MD Nov 30, 2018 15:34
[2018-11-30 18:27] VITALS: BP 114/79
[2018-11-30] MEDS: CEPHALEXIN 500 MG CAP PO SCH (20:11)
[2018-11-30 22:07] VITALS: BP 98/69
[2018-12-01] MEDS: oxyCODONE 5MG TAB PO PRN ×3 (03:01→13:21)
[2018-12-01 05:59] VITALS: BP 98/68
[2018-12-01 06:52] LABS: BASO # 0.1 10^3/uL (0.0-0.2); BASO % 1.1 % (0.0-1.0); EOS # 0.2 10^3/uL (0.0-0.5); EOS % 2.9 % (0.0-3.0); HEMATOCRIT 29.8 % (36.0-47.0); HEMOGLOBIN 9.4 g/dl (12.0-15.5); LYMPH # 1.2 10^3/uL (1.5-5.0); LYMPH % 22.4 % (24.0-44.0); MEAN CORPUSCULAR HEMOGLOBIN 32.6 pg (27.0-33.0); MEAN CORPUSCULAR HGB CONC 31.5 g/dl (32.0-36.5); MEAN CORPUSCULAR VOLUME 103.5 fl (80.0-96.0); MONO # 0.8 10^3/uL (0.0-0.8); MONO % 15.7 % (0.0-5.0); NEUTROPHILS % 56.9 % (36.0-66.0); PLATELET COUNT, AUTOMATED 289 10^3/uL (150-450); RED BLOOD COUNT 2.88 10^6/uL (4.00-5.40); WHITE BLOOD COUNT 5.2 10^3/uL (4.0-10.0)
[2018-12-01 07:23] LABS: ALBUMIN 2.6 GM/DL (3.2-5.2); ALT/SGPT 53 U/L (12-78); BILIRUBIN,TOTAL 1.3 MG/DL (0.2-1.0); BLOOD UREA NITROGEN 1 MG/DL (7-18); CALCIUM LEVEL 8.3 MG/DL (8.5-10.1); CARBON DIOXIDE LEVEL 27 MEQ/L (21-32); CHLORIDE LEVEL 105 MEQ/L (98-107); CREATININE FOR GFR 0.42 MG/DL (0.55-1.30); GLOMERULAR FILTRATION RATE > 60.0 (>60); GLUCOSE, FASTING 106 MG/DL (70-100); MAGNESIUM LEVEL 1.6 MG/DL (1.8-2.4); POTASSIUM SERUM 3.5 MEQ/L (3.5-5.1); SODIUM LEVEL 139 MEQ/L (136-145); TOTAL PROTEIN 5.9 GM/DL (6.4-8.2)
[2018-12-01] MEDS: FOLIC ACID 1 MG TAB PO SCH (08:09)
[2018-12-01] MEDS: MULTIVITAMINS/MINERALS THERAP 1 TAB PO SCH (08:09)
[2018-12-01] MEDS: ENOXAPARIN 40 MG/0.4 ML SYRINGE (J1650) SC SCH (08:09)
[2018-12-01] MEDS: CEPHALEXIN 500 MG CAP PO SCH (08:09)
--- NOTE | 2018-12-01 08:39 | IPNPDOC ---
Text Note Date of Service The patient was seen on 12/01/18. NOTE Subjective: -Improved pain but glass cleaning machine tender, tolerating PO oxy instead of morphine ok Objective: Vitals: See below General: NAD, otherwise speaking in full sentences HEENT: NCAT, PERRLA, EOMI, no icterus, no significant pallor Chest: CTAB, no crackles, dullness or wheezing Cardiac: RRR, no mrg Abd: soft, persistent tender lower quadrants and suprapubic region, mild left flank pain, no right flank pain today, normoactive bowel sounds Ext: No edema, WWP Labs: see below Imaging: reviewed Assessment: 28 yo W with alcohol use disorder who presented with abdominal pain and found to have emphysematous cystitis with a urine culture showing Klebsiella and blood cultures positive for staph capitis now stable on keflex. Plan: Acute Emphysematous Cystitis: -Klebs UTI and staph capitis in blood from admission, switched from vanc/zosyn to ancef and now keflex, and doing well, hemodynamically stable and afebrile -follow up 09/28 blood cultures, negative to date -Urology consulted, appreciate recs, no intervention planned at this time, to treat infection and reimage abdomen in 1 month Severe Electrolyte Derangements: Hyponatremia, Hypokalemia, Hypomagnesemia in the setting of alcohol use disorder -replete lytes PRN -PCU with Tele -On IVF Abnormal LFTs: likely int he setting of alcohol use disorder -abdominal US showed steatosis but was otherwise normal -LFTs now improving Heavy Alcohol use Hx - now off CIWA -continue Thiamine, Folate DVT ppx: lovenox Dispo: Home once adequate pain control regimen VS,Fishbone, I+O VS, Fishbone, I+O Laboratory Tests 12/01/18 06:09 Red Blood Count 2.88 L, Mean Corpuscular Volume 103.5 H, Mean Corpuscular Hemoglobin 32.6, Mean Corpuscular Hemoglobin Concent 31.5 L, Red Cell Distr ibution Width 14.9 H, Neutrophils (%) (Auto) 56.9, Lymphocytes (%) (Auto) 22.4 L, Monocytes (%) (Auto) 15.7 H, Eosinophils (%) (Auto) 2.9, Basophils (%) (Auto) 1.1 H, Neutrophils # (Auto) 3.0, Lymphocytes # (Auto) 1.2 L, Monocytes # (Auto) 0.8, Eosinophils # (Auto) 0.2, Basophils # (Auto) 0.1, Calcium Level 8.3 L, Aspartate Amino Transf (AST/SGOT) 154 H, Alanine Aminotransferase (ALT/SGPT) 53, Alkaline Phosphatase 229 H, Total Bilirubin 1.3 H, Total Protein 5.9 L, Albumin 2.6 L Vital Signs Date Time Temp Pulse Resp B/P (MAP) Pulse Ox O2 Delivery O2 Flow Rate FiO2 12/01/18 08:10 16 11/30/18 22:07 99.0 68 98/69 (79) 97 11/27/18 02:42 Room Air I&O- Last 24 Hours up to 6 AM 12/01/18 06:00 Intake Total 1610 ml Output Total 2250 ml Balance -640 ml EULALIO DIETRICH MD Dec 01, 2018 08:39
[2018-12-01] MEDS ORDERED: POTASSIUM CHLORIDE 10 MEQ SR TABLET PO ONE (08:45)
[2018-12-01] MEDS ORDERED: CEPH500C PO (13:12)
[2018-12-01] MEDS ORDERED: ACET1TAB55 PO (13:12)
[2018-12-01] MEDS ORDERED: OXYCO5TA PO (13:12)
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
[2018-12-01 14:00] VITALS: BP 114/68
== END 2018-12-01 15:00 | disposition home or self-care (01) | DRG 690 ==
LOC: M ED 19:57 → M ED INP 11-27 01:00 → M ICU 11-27 03:09 → M MS5PR 11-27 17:05
PROVIDERS: ADMIT Internal Medicine; ATTEND Internal Medicine
DX: N30.80 Other cystitis without hematuria (principal); E87.1 Hypo-osmolality and hyponatremia; F10.239 Alcohol dependence with withdrawal, unspecified; F17.210 Nicotine dependence, cigarettes, uncomplicated; E87.6 Hypokalemia; E83.42 Hypomagnesemia; E86.0 Dehydration; B96.1 Klebsiella pneumoniae [K. pneumoniae] as the cause of diseases classified elsewhere; D64.9 Anemia, unspecified

== ENCOUNTER 2018-12-24 20:59 | Inpatient (IN) | payer OTHER ==
[~2018-12-24] VITALS: Ht 162.6 cm; Wt 50.9 kg
[~2018-12-24 20:59] MED LIST changes: +ACET1TAB55 PO; +CEPH500C PO; +MULTCAP PO; +NEXP1IMP SC; +OXYCO5TA PO
[2018-12-24] MEDS ORDERED: ONDANSETRON 4MG/2ML VIAL (J2405) IV ONE (22:00)
[2018-12-24] MEDS ORDERED: NS 1,000 ML IV ONE (22:00)
[2018-12-24] MEDS ORDERED: PANTOPRAZOLE 40MG INJ (PROTONIX) (C9113) IV ONE (22:00)
[2018-12-24 22:06] LABS: BASO # 0.1 10^3/uL (0.0-0.2); BASO % 0.8 % (0.0-1.0); EOS # 0.1 10^3/uL (0.0-0.5); EOS % 0.9 % (0.0-3.0); HEMATOCRIT 34.9 % (36.0-47.0); LYMPH # 1.2 10^3/uL (1.5-5.0); LYMPH % 14.3 % (24.0-44.0); MEAN CORPUSCULAR HEMOGLOBIN 32.9 pg (27.0-33.0); MEAN CORPUSCULAR HGB CONC 34.4 g/dl (32.0-36.5); MEAN CORPUSCULAR VOLUME 95.6 fl (80.0-96.0); MONO # 0.6 10^3/uL (0.0-0.8); NEUTROPHILS # 6.6 10^3/uL (1.5-8.5); NEUTROPHILS % 76.5 % (36.0-66.0); PLATELET COUNT, AUTOMATED 105 10^3/uL (150-450); RED BLOOD COUNT 3.65 10^6/uL (4.00-5.40); WHITE BLOOD COUNT 8.6 10^3/uL (4.0-10.0)
[2018-12-24 22:08] LABS: INR 1.11
[2018-12-24 22:17] LABS: ALBUMIN 3.5 GM/DL (3.2-5.2); ALT/SGPT 77 U/L (12-78); BILIRUBIN,DIRECT 1.7 MG/DL (0.0-0.2); BILIRUBIN,TOTAL 2.3 MG/DL (0.2-1.0); BLOOD UREA NITROGEN 2 MG/DL (7-18); CARBON DIOXIDE LEVEL 25 MEQ/L (21-32); CHLORIDE LEVEL 92 MEQ/L (98-107); CK-MB VALUE MASS < 1.0 NG/ML (<3.6); CPK CREATINE PHOSPHOKINASE 36 U/L (26-192); CREATININE FOR GFR 0.46 MG/DL (0.55-1.30); GLOMERULAR FILTRATION RATE > 60.0 (>60); GLUCOSE, FASTING 94 MG/DL (70-100); LIPASE 494 U/L (73-393); MB/CK RELATIVE INDEX 2.78 (< OR =4); POTASSIUM SERUM 3.1 MEQ/L (3.5-5.1); SODIUM LEVEL 134 MEQ/L (136-145); TOTAL PROTEIN 7.5 GM/DL (6.4-8.2); TROPONIN I < 0.02 NG/ML (< 0.10)
--- NOTE | 2018-12-24 23:12 | HPEPDOC ---
[facility] Medical History & Physical Date of Admission Dec 24, 2018 Date of Service: Dec 24, 2018 History and Physical Chief complaints Abd pain for the last 4 days History of Present Illness 28 years old white female with past medical history of no medical problems, presented with chief complaints of abdominal pain for the last 4 days. The patient states that she was having this mild epigastric and left lower quadrant abdominal pain for the last 4 days which has been progressively worsening. The patient stated that she noticed some dark stools and eventually tarry stools and she thought that it might be blood and that is the reason she came to the ER. The patient stated that he has been drinking on the weekend and has had 8-10 shots of 40, over the last 24 hours, and along with that. Does drink in between as well. The patient states that she is a chronic smoker. Denies any colonoscopy or any EGD in the past. The patient denies any other medical problems. Patient denies any symptoms, any dizziness, any chest pain. The patient states that she has had couple episodes of vomiting which he attributes to his eating some old food which she had. Denies any blood in the vomitus. Denies any fever, any rigors, any chills. Allergies No known drug allergies Past Medical History Alcoholism and nicotine addiction Surgical History None Family History: No pertinent family history Social History Smoker: current smoker Alcohol: heavy Drugs: denies Review of systems. Pertinent positive finding is at a time. He has asked negative PHYSICAL EXAMINATION: General: The patient is awake, alert, oriented x3, sitting up in the bed in no apparent distress. Head and Neck Exam: Extraocular muscles intact. Pupils equally round and reactive to light. Mucous membranes are moist. Neck is supple. There is no jugular venous distention (JVD). Cardiovascular: S1 and S2, regular rate. Trace edema of the bilateral lower extremities. Respiratory: Lungs are clear auscultation bilaterally Abdomen: Soft. Positive bowel sounds. Mild tenderness in the epigastric area and the left lower quadrant. No organomegaly Genitourinary: Deferred Musculoskeletal: Normal range of motion Central Nervous System (CARTON PACKAGING MACHINE OPERATOR): No focal deficit. Power is 5/5 in all extremities. Labs reviewed Radiology reviewed Assessment and plan 1. GI bleed. Likely upper GI bleed because of gastritis secondary to alcoholism and smoking. The patient will be kept on Protonix 40 twice a day along with sucralfate one 3 times a day. Hemoglobin will be monitored in the morning Currently the hemoglobin is stable and the patient's heart rate is 83 and the patient is symptomatically stable. Possible GI consult in the morning. 2. Elevated lipase. mildly elevated lipase at 483. The patient doesn't have epigastric tenderness and the left quadrant tenderness but CT scan does not rev eal any pancreatitis and the lipase is not 3 times upper limit. Will continue to monitor lipase in the morning. Continue IV fluids. Currently, the patient will be kept nothing by mouth. 3. Alcohol abuse. Counseled in detail. We'll start on COPD protocol. 4. Hypokalemia. We will replace and monitor. We'll replace and monitor. Magnesium also When necessary Zofran is added. DVT prophylaxis with SCDs. Expected length of stay is greater than to midnight. Vital Signs Vital Signs Date Time Temp Pulse Resp B/P (MAP) Pulse Ox O2 Delivery O2 Flow Rate FiO2 12/24/18 21:30 18 98 12/24/18 21:22 97.8 111 145/98 (114) 12/24/18 21:17 Room Air Laboratory Data Labs 24H Laboratory Tests 2 12/24/18 21:27: Immature Granulocyte % (Auto) 0.5, Neutrophils (%) (Auto) 76.5H, Lymphocytes (%) (Auto) 14.3L, Monocytes (%) (Auto) 7.0H, Eosinophils (%) (Auto) 0.9, Basophils (%) (Auto) 0.8, Neutrophils # (Auto) 6.6, Lymphocytes # (Auto) 1.2L, Monocytes # (Auto) 0.6, Eosinophils # (Auto) 0.1, Basophils # (Auto) 0.1, Nucleated Red Blood Cells % (auto) 0.0, Prothrombin Time 14.0, Prothromb Time International Ratio 1.11, Anion Gap 17H, Glomerular Filtration Rate > 60.0, Calcium Level 9.0, Total Bilirubin 2.3H, Direct Bilirubin 1.7H, Aspartate Amino Transf (AST/SGOT) 847H, Alanine Aminotransferase (ALT/SGPT) 77, Alkaline Phosphatase 357H, Total Creatine Kinase 36, Creatine Kinase MB < 1.0, Creatine Kinase MB Relative Index 2.78, Troponin I < 0.02, Total Protein 7.5, Albumin 3.5, Albumin/Globulin Ratio 0.88L, Lipase 494H CBC/BMP Laboratory Tests 12/24/18 21:27 Home Medications Scheduled Etonogestrel (Nexplanon) 68 Mg Implant, 68 MG SC ASDIRECTED INITIAL IMPLANT IN MAY 2014 Multivitamin (Multivitamins) 1 Each Capsule, 1 CAP PO DAILY Allergies Coded Allergies: No Known Allergies (Unverified , 12/24/18) A-FIB/CHADSVASC A-FIB History Current/History of A-Fib/PAF?: No Current PO Anticoag Therapy: No REX BUCIO MD Dec 24, 2018 23:12
[2018-12-24] MEDS ORDERED: POTASSIUM CHLORIDE 10 MEQ SR TABLET PO ONE ×2 (23:15→23:45)
--- NOTE | 2018-12-24 23:27 | REPVR ---
PROCEDURE INFORMATION: Exam: CT Abdomen And Pelvis Without Contrast Exam date and time: 12/24/2018 10:33 PM Clinical history: 28 years old, female; Abdominal pain; Additional info: Gi bleed TECHNIQUE: Imaging protocol: Computed tomography of the abdomen and pelvis without contrast. Axial, coronal and sagittal reformatted images were created and reviewed. Radiation optimization: All CT scans at this facility use at least one of these dose optimization techniques: automated exposure control; mA and/or kV adjustment per patient size (includes targeted exams where dose is matched to clinical indication); or iterative reconstruction. COMPARISON: CT ABD/PEL W/IV ORAL CONTRAS 11/26/2018 11:12 PM FINDINGS: Liver: Mild hepatomegaly. Diffuse hepatic steatosis. Gallbladder and bile ducts: No radiodense gallstones. No biliary ductal dilatation. Pancreas: Unremarkable. Spleen: Unremarkable. Adrenals: Unremarkable. Kidneys and ureters: Punctate nonobstructing left renal calculus. No hydronephrosis. Stomach and bowel: No bowel wall thickening. No obstruction. No pneumatosis. Appendix: Appendix not identified with certainty but no right lower quadrant inflammatory change to suggest acute appendicitis. Intraperitoneal space: No free fluid. No organized fluid collection. No free air. Vasculature: Unremarkable. No aneurysm. Lymph nodes: No pathologically enlarged lymph nodes. Bladder: Unremarkable. Reproductive: Unremarkable. Bones/joints: No acute osseous abnormality. Soft tissues: Unremarkable. IMPRESSION: 1. Limited noncontrast examination without CT evidence of acute intra-abdominal or pelvic pathology. 2. Additional findings, as above. Electronically signed by: Alec Godinez On 12/24/2018 23:27:25 PM
[2018-12-25] VITALS (7 sets, daily range): BP systolic 112–130; BP diastolic 77–90
[2018-12-25] MEDS: SUCRALFATE 1 GM TAB PO SCH ×4 (00:28→21:52)
[2018-12-25] MEDS: THIAMINE 100 MG TAB PO SCH ×3 (00:29→21:53)
[2018-12-25 00:53] LABS: MAGNESIUM LEVEL 1.1 MG/DL (1.8-2.4)
[2018-12-25] MEDS ORDERED: ISOVUE-370 76% 100ML VIAL (Q9967) As Ordered ONE (02:25)
[2018-12-25] MEDS ORDERED: MAG SULF 1GM/100ML (MAG RUN) 1 GM in IV 1 EA IV ONE (02:30)
[2018-12-25 07:22] LABS: ALT/SGPT 59 U/L (12-78); BILIRUBIN,TOTAL 2.1 MG/DL (0.2-1.0); BLOOD UREA NITROGEN 2 MG/DL (7-18); CALCIUM LEVEL 8.4 MG/DL (8.5-10.1); CARBON DIOXIDE LEVEL 24 MEQ/L (21-32); CHLORIDE LEVEL 100 MEQ/L (98-107); CREATININE FOR GFR 0.38 MG/DL (0.55-1.30); GLOMERULAR FILTRATION RATE > 60.0 (>60); GLUCOSE, FASTING 65 MG/DL (70-100); POTASSIUM SERUM 4.6 MEQ/L (3.5-5.1); SODIUM LEVEL 136 MEQ/L (136-145); TOTAL PROTEIN 6.7 GM/DL (6.4-8.2)
[2018-12-25 09:10] LABS: HEMATOCRIT 31.6 % (36.0-47.0); HEMOGLOBIN 10.6 g/dl (12.0-15.5); MEAN CORPUSCULAR HEMOGLOBIN 32.9 pg (27.0-33.0); MEAN CORPUSCULAR HGB CONC 33.5 g/dl (32.0-36.5); MEAN CORPUSCULAR VOLUME 98.1 fl (80.0-96.0); RED BLOOD COUNT 3.22 10^6/uL (4.00-5.40); WHITE BLOOD COUNT 7.8 10^3/uL (4.0-10.0)
[2018-12-25 09:14] LABS: PLATELET COUNT, AUTOMATED 85 10^3/uL (150-450)
[2018-12-25] MEDS: ONDANSETRON 4MG/2ML VIAL (J2405) IV PRN ×2 (09:31→21:50)
[2018-12-25] MEDS: FOLIC ACID 1 MG TAB PO SCH (10:02)
[2018-12-25] MEDS: PANTOPRAZOLE 40MG INJ (PROTONIX) (C9113) IV SCH ×2 (10:02→21:50)
[2018-12-25] MEDS: MULTIVITAMINS/MINERALS THERAP 1 TAB PO SCH (10:02)
[2018-12-25] MEDS: LORazepam 2 MG TAB PO PRN ×2 (10:02→21:52)
--- NOTE | 2018-12-25 14:21 | IPNPDOC ---
Text Note Date of Service The patient was seen on 12/25/18. NOTE Patient was seen and examined today. No overnight events. States that she did not notice any more blood in the stool PHYSICAL EXAMINATION: General: The patient is awake, alert, oriented x3, sitting up in the bed in no apparent distress. Head and Neck Exam: Extraocular muscles intact. Pupils equally round and reactive to light. Mucous membranes are moist. Neck is supple. There is no jugular venous distention (JVD). Cardiovascular: S1 and S2, regular rate. Trace edema of the bilateral lower extremities. Respiratory: Lungs are clear auscultation bilaterally Abdomen: Soft. Positive bowel sounds. Mild tenderness in the epigastric area and the left lower quadrant. No organomegaly Genitourinary: Deferred Musculoskeletal: Normal range of motion Central Nervous System (COMPANY ACCOUNTANT): No focal deficit. Power is 5/5 in all extremities. Labs reviewed Radiology reviewed Assessment and plan 1. GI bleed. Likely upper GI bleed because of gastritis secondary to alcoholism and smoking. The patient will be kept on Protonix 40 twice a day along with sucralfate one 3 times a day. Hemoglobin will be monitored. It is a slight drop in the hemoglobin, but this could be related to dilutional effect. Because of fluids. And the patient's heart rate is 83 and the patient is symptomatically stable. As was surgical consult for colonoscopy/endoscopy. If she continues to have attending on hemoglobin 2. Elevated lipase. mildly elevated lipase at 483. The patient doesn't have epigastric tenderness and the left quadrant tenderness but CT scan does not reveal any pancreatitis and the lipase is not 3 times upper limit. Continue IV fluids. Currently, the patient will be kept nothing by mouth. escalated diet as per response 3. Alcohol abuse. Counseled in detail. We'll start on COPD protocol. 4. Hypokalemia. We will replace and monitor. We'll replace and monitor. Magnesium also When necessary Zofran is added. DVT prophylaxis with SCDs. Expected length of stay is greater than to midnight. VS,Fishbone, I+O VS, Fishbone, I+O Laboratory Tests 12/24/18 21:27 12/25/18 06:43 12/25/18 08:58 Vital Signs Date Time Temp Pulse Resp B/P (MAP) Pulse Ox O2 Delivery O2 Flow Rate FiO2 12/25/18 12:00 84 112/79 10/21/19 12:00 98.7 18 97 Room Air I&O- Last 24 Hours up to 6 AM 12/25/18 06:00 Intake Total 1100 ml Balance 1100 ml REX BUCIO MD Dec 25, 2018 14:21
[2018-12-25] MEDS: MORPHINE 4 MG/ML 1ML VIAL/SYRINGE (J2270) IV PRN ×2 (15:58→21:52)
[2018-12-25 18:12] LABS: HEMATOCRIT 30.3 % (36.0-47.0); HEMOGLOBIN 10.2 g/dl (12.0-15.5); MEAN CORPUSCULAR HEMOGLOBIN 33.3 pg (27.0-33.0); MEAN CORPUSCULAR HGB CONC 33.7 g/dl (32.0-36.5); RED BLOOD COUNT 3.06 10^6/uL (4.00-5.40); WHITE BLOOD COUNT 6.8 10^3/uL (4.0-10.0)
[2018-12-25 18:14] LABS: PLATELET COUNT, AUTOMATED 78 10^3/uL (150-450)
[2018-12-26] VITALS (10 sets, daily range): BP systolic 93–134; BP diastolic 55–83
[2018-12-26] MEDS: MORPHINE 4 MG/ML 1ML VIAL/SYRINGE (J2270) IV PRN ×3 (03:58→18:13)
[2018-12-26] MEDS: MULTIVITAMINS/MINERALS THERAP 1 TAB PO SCH (08:32)
[2018-12-26] MEDS: FOLIC ACID 1 MG TAB PO SCH (08:32)
[2018-12-26] MEDS: THIAMINE 100 MG TAB PO SCH ×2 (08:32→20:04)
[2018-12-26] MEDS: PANTOPRAZOLE 40MG INJ (PROTONIX) (C9113) IV SCH ×2 (08:32→20:04)
[2018-12-26] MEDS: SUCRALFATE 1 GM TAB PO SCH ×3 (08:32→20:05)
[2018-12-26 09:56] LABS: BASO # 0.1 10^3/uL (0.0-0.2); BASO % 0.7 % (0.0-1.0); EOS # 0.2 10^3/uL (0.0-0.5); EOS % 3.1 % (0.0-3.0); HEMATOCRIT 28.5 % (36.0-47.0); HEMOGLOBIN 9.6 g/dl (12.0-15.5); LYMPH # 0.9 10^3/uL (1.5-5.0); LYMPH % 13.2 % (24.0-44.0); MEAN CORPUSCULAR HEMOGLOBIN 33.2 pg (27.0-33.0); MEAN CORPUSCULAR HGB CONC 33.7 g/dl (32.0-36.5); MEAN CORPUSCULAR VOLUME 98.6 fl (80.0-96.0); MONO # 0.4 10^3/uL (0.0-0.8); MONO % 5.7 % (0.0-5.0); NEUTROPHILS # 5.2 10^3/uL (1.5-8.5); NEUTROPHILS % 76.7 % (36.0-66.0); RED BLOOD COUNT 2.89 10^6/uL (4.00-5.40); WHITE BLOOD COUNT 6.8 10^3/uL (4.0-10.0)
[2018-12-26 09:58] LABS: PLATELET COUNT, AUTOMATED 82 10^3/uL (150-450)
--- NOTE | 2018-12-26 11:08 | IPNPDOC ---
Text Note Date of Service The patient was seen on 12/26/18. NOTE Patient was seen and examined today. No overnight events. States that she did not notice any more blood in the stool PHYSICAL EXAMINATION: General: The patient is awake, alert, oriented x3, sitting up in the bed in no apparent distress. Head and Neck Exam: Extraocular muscles intact. Pupils equally round and reactive to light. Mucous membranes are moist. Neck is supple. There is no jugular venous distention (JVD). Cardiovascular: S1 and S2, regular rate. Trace edema of the bilateral lower extremities. Respiratory: Lungs are clear auscultation bilaterally Abdomen: Soft. Positive bowel sounds. Mild tenderness in the epigastric area and the left lower quadrant. No organomegaly Genitourinary: Deferred Musculoskeletal: Normal range of motion Central Nervous System (ACCOUNTING ASSISTANT): No focal deficit. Power is 5/5 in all extremities. Labs reviewed Radiology reviewed Assessment and plan 1. GI bleed. Hemoglobin keeps on trending down. Today it is 10.2. Likely upper GI bleed because of gastritis secondary to alcoholism and smoking. The patient will be kept on Protonix 40 twice a day along with sucralfate one 3 times a day. Hemoglobin will be monitored. It is a slight drop in the hemoglobin, but this c ould be related to dilutional effect. Because of fluids. And the patient's heart rate is 83 and the patient is symptomatically stable. Surgical consult done for possible endoscopy. 2. Elevated lipase. mildly elevated lipase at 483. The patient doesn't have epigastric tenderness and the left quadrant tenderness but CT scan does not reveal any pancreatitis and the lipase is not 3 times upper limit. Continue IV fluids. Currently, the patient will be kept nothing by mouth. escalated diet as per response 3. Alcohol abuse. Counseled in detail. We'll start on COPD protocol. 4. Hypokalemia. We will replace and monitor. We'll replace and monitor. Magnesium also When necessary Zofran is added. DVT prophylaxis with SCDs. VS,Fishbone, I+O VS, Fishbone, I+O Laboratory Tests 12/25/18 17:48 12/26/18 09:11 Vital Signs Date Time Temp Pulse Resp B/P (MAP) Pulse Ox O2 Delivery O2 Flow Rate FiO2 12/26/18 08:00 90 114/72 12/26/18 08:00 98.4 18 98 Room Air I&O- Last 24 Hours up to 6 AM 12/26/18 06:00 Intake Total 1380 ml Output Total 1050 ml Balance 330 ml REX BUCIO MD Dec 26, 2018 11:08
[2018-12-26] MEDS: ONDANSETRON 4MG/2ML VIAL (J2405) IV PRN ×2 (11:37→18:12)
[2018-12-26] MEDS ORDERED: MOM 30ML SUSPENSION UDC PO ONE (13:00)
--- NOTE | 2018-12-26 13:38 | CR.PDOC ---
General Surgery Consultation Date of Consultation 12/26/18 History and Physical CONSULT REPORT FOR: hospitalist service (Dr. Vargas) REASON FOR CONSULTATION: for possible need for endoscopy, anemia , ? GI bleeding HISTORY OF PRESENT ILLNESS: I was asked to see this 28-year-old female patient admitted since 12/24/2018 for reports of passage of black stools abdominal pain. Patient has a history of heavy alcohol use. She claims she has not been drinking up until couple of days back when she had a relapse hasn't drank on the weekend. She reports passing black stools though she would not define whether this was tarry on Tuesday and Tuesday which led her to the emergency room. She has been observed for a couple days now on the hospitalist been hemodynamically stable and has not had any bowel movements since being admitted to the hospital with her hemoglobin and hematocrit trended down some from a baseline of 12 and 35-9.6 and 28.5 today which got the hospitalist concern for continued bleeding and thus request for this consult. She wasn't in the mode to talk to me when I went to see her and just wishes to go home after bowel movement which she feels that she needs to have a bowel movement to relieve her left lower quadrant discomfort. She reports left almost flank discomfort but not much epigastric discomfort though she does tell me that she has occasional epigastric discomfort. She has been tried on some liquids with some increased in pain according to her hospitalist. PAST MEDICAL HISTORY: 1. Heavy alcohol use PAST SURGICAL HISTORY: INCLUDES: 1. None. ALLERGIES: Please see below. HOME MEDICATIONS: Please see below. REVIEW OF SYSTEMS: Patient was not receptive to detailed questioning. From what I could gather the abdominal pain she has been experiencing has been ongoing since September or October. She tells me she was a heavy alcohol drinker has stopped drinking but with the location of the relapse. She denies any significant cardiac problems, chest pain, shortness of breath. She denies any problems with breathing. She denies any fevers or chills. PHYSICAL EXAMINATION: VITALS SIGNS: Please see below. GENERAL APPEARANCE: Patient initially seen sleeping, woke up startled as I entered the room was voicing frustration on my questioning, not very cooperative. SKIN: Warm and dry. HEENT: Normocephalic, atraumatic. [place] palpebral conjunctiva, anicteric sclerae. Lips and mucosa appear moist. NECK: Supple, no thyromegaly. No obvious jugular venous distention. ABDOMEN: Abdomen is , soft, looks minimally distended slightly tympanitic to percussion. I see no obvious herniations. She points to the left lower abdomen almost to her backside where she hurts. She is minimally tender over the epigastric area on deep palpation without guarding. EXTREMITIES: Extremities have no deformities. No edema identified ANCILLARIES: . LABORATORY DATA: Please see below. IMAGING STUDIES: CT abdomen and pelvis 1. Limited noncontrast examination without CT evidence of acute intra-abdominal or pelvic pathology. 2. Additional findings, as above. IMPRESSION AND PLAN: History of heavy alcohol use with what most likely has persistent alcoholic hepatitis with persistent elevation of her AST, ALT, bilirubin and decreasing trend of her platelets. Probably also had some element of chronic pancreatitis and she certainly is at risk for at with some mild elevation of her lipase. This does not explain the the left hip, left lower quadrant abdominal discomfort that she complains of. In terms of possibility of a GI bleed or an upper GI bleed she certainly would be at risk for his given history of her alcohol use but she has not demonstrated that she is actively bleeding at this point. She reports possibility of a history of melanoma though her initial hemoglobin and hematocrit looks stable with a hemoglobin of 12 and hematocrit 34.9. Her hemoglobin and hematocrit gradually had dipped down maybe due to some IV fluid hydration or some rebalancing but she has not had any bowel movements since her admission nor any clinical signs of active bleeding. Thus I do not think she needs an emergent endoscopy. Also of note the patient does not want any procedure done when I spoke to her. I'm not sure if this will add anything to her management specially where fact if she continues to drink alcohol when she gets out of the hospital. An outpatient endoscopy and even a colonoscopy should be considered so I'm not sure if she is reliable enough to follow through with this. She was previously been seen in one of her recent admissions by Dr. Bass who was seems to be of the same opinion. She could follow-up as an outpatient either in the gastroenterology clinic or in the surgical clinic for an outpatient endoscopy and colonoscopy if she wishes to. She feels she is constipated and she wishes to be aided to have a bowel movement and so I ordered a dose of milk of magnesia for this. I do not have any concrete plans to perform an endoscopy on her last there is active bleeding clinically or noticeable drop in her hemoglobin and hematocrit. Vital Signs Vital Signs Date Time Temp Pulse Resp B/P (MAP) Pulse Ox O2 Delivery O2 Flow Rate FiO2 12/26/18 11:38 18 Room Air 12/26/18 08:00 90 114/72 12/26/18 08:00 98.4 98 I&Os I&O- Last 24 Hours up to 6 AM 12/26/18 06:00 Intake Total 1380 ml Output Total 1050 ml Balance 330 ml Laboratory Data Labs 24H Laboratory Tests 2 12/25/18 17:48: Nucleated Red Blood Cells % (auto) 0.0 12/26/18 09:11: Nucleated Red Blood Cells % (auto) 0.0, Immature Granulocyte % (Auto) 0.6, Neutrophils (%) (Auto) 76.7H, Lymphocytes (%) (Auto) 13.2L, Monocytes (%) (Auto) 5.7H, Eosinophils (%) (Auto) 3.1H, Basophils (%) (Auto) 0.7, Neutrophils # (Auto) 5.2, Lymphocytes # (Auto) 0.9L, Monocytes # (Auto) 0.4, Eosinophils # (Auto) 0.2, Basophils # (Auto) 0.1, Immature Platelet Fraction 6.4 CBC/BMP Laboratory Tests 12/25/18 17:48 12/26/18 09:11 Home Medications Scheduled Etonogestrel (Nexplanon) 68 Mg Implant, 68 MG SC ASDIRECTED, (Reported) INITIAL IMPLANT IN MAY 2014 Multivitamin (Multivitamins) 1 Each Capsule, 1 CAP PO DAILY, (Reported) Allergies Coded Allergies: No Known Allergies (Unverified , 12/24/18) ALEKSEY NOWAK MD Dec 26, 2018 13:38
[2018-12-26] MEDS ORDERED: traMADol 50 MG TAB PO ONE (20:45)
[2018-12-26] MEDS ORDERED: MORPHINE 4 MG/ML 1ML VIAL/SYRINGE (J2270) IV ONE (23:30)
[2018-12-27] VITALS: BP 117/80
[2018-12-27 04:00] VITALS: BP 108/67
[2018-12-27] MEDS: MORPHINE 4 MG/ML 1ML VIAL/SYRINGE (J2270) IV PRN ×4 (04:02→23:19)
[2018-12-27 06:00] VITALS: BP 108/67
[2018-12-27 06:51] LABS: BASO # 0.1 10^3/uL (0.0-0.2); BASO % 0.7 % (0.0-1.0); EOS # 0.2 10^3/uL (0.0-0.5); EOS % 2.9 % (0.0-3.0); HEMATOCRIT 28.1 % (36.0-47.0); HEMOGLOBIN 9.4 g/dl (12.0-15.5); LYMPH % 13.2 % (24.0-44.0); MEAN CORPUSCULAR HEMOGLOBIN 32.4 pg (27.0-33.0); MEAN CORPUSCULAR HGB CONC 33.5 g/dl (32.0-36.5); MEAN CORPUSCULAR VOLUME 96.9 fl (80.0-96.0); MONO # 0.4 10^3/uL (0.0-0.8); MONO % 5.2 % (0.0-5.0); NEUTROPHILS # 5.7 10^3/uL (1.5-8.5); NEUTROPHILS % 77.6 % (36.0-66.0); PLATELET COUNT, AUTOMATED 109 10^3/uL (150-450); WHITE BLOOD COUNT 7.4 10^3/uL (4.0-10.0)
[2018-12-27 07:18] LABS: BLOOD UREA NITROGEN < 1 MG/DL (7-18); CALCIUM LEVEL 8.9 MG/DL (8.5-10.1); CARBON DIOXIDE LEVEL 25 MEQ/L (21-32); CHLORIDE LEVEL 99 MEQ/L (98-107); CREATININE FOR GFR 0.45 MG/DL (0.55-1.30); GLOMERULAR FILTRATION RATE > 60.0 (>60); GLUCOSE, FASTING 102 MG/DL (70-100); POTASSIUM SERUM 3.4 MEQ/L (3.5-5.1); SODIUM LEVEL 132 MEQ/L (136-145)
[2018-12-27 08:00] VITALS: BP 117/77
[2018-12-27] MEDS ORDERED: POTASSIUM CHLORIDE 10 MEQ SR TABLET PO ONE (08:30)
[2018-12-27] MEDS: FOLIC ACID 1 MG TAB PO SCH (08:55)
[2018-12-27] MEDS: THIAMINE 100 MG TAB PO SCH ×2 (08:55→21:07)
[2018-12-27] MEDS: MULTIVITAMINS/MINERALS THERAP 1 TAB PO SCH (08:55)
[2018-12-27] MEDS: SUCRALFATE 1 GM TAB PO SCH ×3 (08:55→21:07)
[2018-12-27] MEDS: PANTOPRAZOLE 40MG INJ (PROTONIX) (C9113) IV SCH ×2 (08:55→21:07)
[2018-12-27] MEDS: DICYCLOMINE 10 MG CAP PO PRN ×2 (09:04→17:48)
[2018-12-27 09:31] LABS: HEPATITIS B SURFACE ANTIGEN NEGATIVE (NEGATIVE)
[2018-12-27 09:56] LABS: HEPATITIS C VIRUS ABY INDEX 0.1 INDEX (<0.8)
[2018-12-27 09:57] LABS: HEPATITIS B CORE ANTIBODY IGM NEGATIVE (NEGATIVE)
[2018-12-27 09:59] LABS: HEPATITIS A ANTIBODY IGM NEGATIVE (NEGATIVE)
--- NOTE | 2018-12-27 11:51 | IPNPDOC ---
Text Note Date of Service The patient was seen on 12/27/18. NOTE Patient was seen and examined today. No overnight events. States that she did not notice any more blood in the stool PHYSICAL EXAMINATION: General: The patient is awake, alert, oriented x3, sitting up in the bed in no apparent distress. Head and Neck Exam: Extraocular muscles intact. Pupils equally round and reactive to light. Mucous membranes are moist. Neck is supple. There is no jugular venous distention (JVD). Cardiovascular: S1 and S2, regular rate. Trace edema of the bilateral lower extremities. Respiratory: Lungs are clear auscultation bilaterally Abdomen: Soft. Positive bowel sounds. Mild tenderness in the epigastric area and the left lower quadrant. No organomegaly Genitourinary: Deferred Musculoskeletal: Normal range of motion Central Nervous System (CARRY IN WORKER): No focal deficit. Power is 5/5 in all extremities. Labs reviewed Radiology reviewed Assessment and plan 1. GI bleed. Due to the hemoglobin has been stable for the last 24 hours. Likely upper GI bleed because of gastritis secondary to alcoholism and smoking. The patient will be kept on Protonix 40 twice a day along with sucralfate one 3 times a day. Hemoglobin will be monitored. Surgical consult done for possible endoscopy was done, but they recommended conservative management. 2. Elevated lipase. mildly elevated lipase at 483. The patient doesn't have epigastric tenderness and the left quadrant tenderness but CT scan does not reveal any pancreatitis and the lipase is not 3 times upper limit. Continue IV fluids. Currently, that has been escalated to stop that and she is tolerating it well 3. Alcohol abuse. Counseled in detail. We'll start on COPD protocol. 4. Hypokalemia. We will replace and monitor. We'll replace and monitor. Magnesium also 5. Left groin and flank pain. The renal ultrasound will be done. CAT scan was showing a small punctate calculi, which could be the reason . Dicyclomine has been admitted for any spasmodic pain When necessary Zofran is added. DVT prophylaxis with SCDs. VS,Fishbone, I+O VS, Fishbone, I+O Laboratory Tests 12/27/18 06:29 Vital Signs Date Time Temp Pulse Resp B/P (MAP) Pulse Ox O2 Delivery O2 Flow Rate FiO2 12/27/18 10:50 18 12/27/18 08:00 97.1 110 117/77 (90) 97 Room Air I&O- Last 24 Hours up to 6 AM 12/27/18 05:59 Intake Total 2380 ml Output Total 500 ml Balance 1880 ml REX BUCIO MD Dec 27, 2018 11:51
[2018-12-27] MEDS: cefTRIAXone SOD 1 GM in D5W MINI-BAG PLUS 50 ML IV SCH (13:22)
[2018-12-27 15:37] VITALS: BP 111/70
--- NOTE | 2018-12-27 18:25 | REP ---
Clinical: Left Flank pain. Technique: Real time acevedo scale ultrasound examination using curved array transducer. Findings: Bilateral kidneys are normal in contour, size, echogenicity, and reniform shape. No hydronephrosis, nephrolithiasis, cystic or renal mass lesion. No perinephric fluid collection. Right kidney measures 11.4 x 5.9 x 4.2 cm. Left kidney measures 11.3 x 4.8 x 4.4 cm. Bladder is unremarkable. Impression: Normal renal ultrasound. Electronically Signed by Demetrio Ramirez MD 12/27/2018 06:17 P
[2018-12-27 20:00] VITALS: BP 113/72
[2018-12-28] VITALS: BP 106/72
[2018-12-28 04:00] VITALS: BP 104/70
[2018-12-28] MEDS: MORPHINE 4 MG/ML 1ML VIAL/SYRINGE (J2270) IV PRN ×2 (06:13→12:26)
[2018-12-28] MEDS: DICYCLOMINE 10 MG CAP PO PRN (06:13)
[2018-12-28 07:27] LABS: BASO # 0.1 10^3/uL (0.0-0.2); EOS # 0.2 10^3/uL (0.0-0.5); EOS % 2.3 % (0.0-3.0); HEMATOCRIT 32.1 % (36.0-47.0); HEMOGLOBIN 10.3 g/dl (12.0-15.5); LYMPH # 1.1 10^3/uL (1.5-5.0); MEAN CORPUSCULAR HEMOGLOBIN 32.3 pg (27.0-33.0); MEAN CORPUSCULAR HGB CONC 32.1 g/dl (32.0-36.5); MEAN CORPUSCULAR VOLUME 100.6 fl (80.0-96.0); MONO # 0.5 10^3/uL (0.0-0.8); MONO % 6.7 % (0.0-5.0); NEUTROPHILS # 5.2 10^3/uL (1.5-8.5); NEUTROPHILS % 74.3 % (36.0-66.0); PLATELET COUNT, AUTOMATED 151 10^3/uL (150-450); RED BLOOD COUNT 3.19 10^6/uL (4.00-5.40)
[2018-12-28 07:54] LABS: BLOOD UREA NITROGEN < 1 MG/DL (7-18); CALCIUM LEVEL 9.4 MG/DL (8.5-10.1); CARBON DIOXIDE LEVEL 28 MEQ/L (21-32); CHLORIDE LEVEL 103 MEQ/L (98-107); CREATININE FOR GFR 0.43 MG/DL (0.55-1.30); GLOMERULAR FILTRATION RATE > 60.0 (>60); GLUCOSE, FASTING 89 MG/DL (70-100); POTASSIUM SERUM 3.8 MEQ/L (3.5-5.1); SODIUM LEVEL 138 MEQ/L (136-145)
[2018-12-28] MEDS: PANTOPRAZOLE 40MG INJ (PROTONIX) (C9113) IV SCH (08:52)
[2018-12-28] MEDS: MULTIVITAMINS/MINERALS THERAP 1 TAB PO SCH (08:53)
[2018-12-28] MEDS: SUCRALFATE 1 GM TAB PO SCH (08:53)
[2018-12-28] MEDS: FOLIC ACID 1 MG TAB PO SCH (08:53)
[2018-12-28] MEDS: THIAMINE 100 MG TAB PO SCH (08:53)
--- NOTE | 2018-12-28 12:12 | IPNPDOC ---
Text Note Date of Service The patient was seen on 12/28/18. NOTE Patient was seen and examined today. No overnight events. States pain is sli ghtly better PHYSICAL EXAMINATION: General: The patient is awake, alert, oriented x3, sitting up in the bed in no apparent distress. Head and Neck Exam: Extraocular muscles intact. Pupils equally round and reactive to light. Mucous membranes are moist. Neck is supple. There is no jugular venous distention (JVD). Cardiovascular: S1 and S2, regular rate. Trace edema of the bilateral lower extremities. Respiratory: Lungs are clear auscultation bilaterally Abdomen: Soft. Positive bowel sounds. Mild tenderness in the epigastric area and the left lower quadrant. No organomegaly Genitourinary: Deferred Musculoskeletal: Normal range of motion Central Nervous System (BLASTING WORKER): No focal deficit. Power is 5/5 in all extremities. Labs reviewed Radiology reviewed Assessment and plan 1. GI bleed. Due to the hemoglobin has been stable for the last 24 hours. Likely upper GI bleed because of gastritis secondary to alcoholism and smoking. The patient will be kept on Protonix 40 twice a day along with sucralfate one 3 times a day. Hemoglobin will be monitored. Surgical consult done for possible endoscopy was done, but they recommended conservative management. 2. Elevated lipase. mildly elevated lipase at 483. The patient doesn't have epigastric tenderness and the left quadrant tenderness but CT scan does not reveal any pancreatitis and the lipase is not 3 times upper limit. Continue IV fluids. Currently, that has been escalated to stop that and she is tolerating it well 3. Alcohol abuse. Counseled in detail. We'll start on COPD protocol. 4. Hypokalemia. We will replace and monitor. We'll replace and monitor. Magn esium also 5. Left groin and flank pain. The renal ultrasound will be done. CAT scan was showing a small punctate calculi, which could be the reason . Dicyclomine has been admitted for any spasmodic pain Repeat renal sonogram did not show us anything When necessary Zofran is added. DVT prophylaxis with SCDs. VS,Fishbone, I+O VS, Fishbone, I+O Laboratory Tests 12/28/18 06:49 Vital Signs Date Time Temp Pulse Resp B/P (MAP) Pulse Ox O2 Delivery O2 Flow Rate FiO2 12/28/18 06:23 18 12/28/18 04:00 97.3 74 104/70 (81) 98 Room Air I&O- Last 24 Hours up to 6 AM 12/28/18 06:00 Intake Total 840 ml Balance 840 ml REX BUCIO MD Dec 28, 2018 12:12
[2018-12-28] MEDS: cefTRIAXone SOD 1 GM in D5W MINI-BAG PLUS 50 ML IV SCH (12:26)
[2018-12-28] MEDS ORDERED: DICY1CAP8 PO (13:39)
[2018-12-28] MEDS ORDERED: PROT20TA11 PO (13:39)
--- NOTE | 2018-12-28 13:40 | DS.PDOC ---
Discharge Summary General Date of Admission Dec 24, 2018 at 23:01 Date of Discharge 12/28/18 Discharge Summary Chief complaints Abd pain for the last 4 days Final diagnosis Possible alcoholic gastritis Nonobstructing small renal stone Possible drug-seeking behavior History of Present Illness 28 years old white female with past medical history of no medical problems, presented with chief complaints of abdominal pain for the last 4 days. The patient states that she was having this mild epigastric and left lower quadrant abdominal pain for the last 4 days which has been progressively worsening. The p atient stated that she noticed some dark stools and eventually tarry stools and she thought that it might be blood and that is the reason she came to the ER. The patient stated that he has been drinking on the weekend and has had 8-10 shots of vodka, over the last 24 hours, and along with that. Does drink in between as well. The patient states that she is a chronic smoker. Denies any colonoscopy or any EGD in the past. For her GI bleed ,hemoglobin has been stable for the last 24 hours. Likely upper GI bleed because of gastritis secondary to alcoholism and smoking. The patient will be kept on Protonix 40 and dc on 20 daily .Surgical consult done for possible endoscopy was done, but they recom mended conservative management. Her Elevated lipase. mildly elevated lipase at 483. The patient did have epigastric tenderness and the left quadrant tenderness which resolved but CT scan does not reveal any pancreatitis and the lipase is not 3 times upper limit. Diet she is tolerating well. For Left groin and flank pain. The renal ultrasound will be done. CAT scan was showing a small punctate calculi, which could be the reason . Dicyclomine has been admitted for any spasmodic pain. No hydronephrosis. For Alcohol abuse. Counseled in detail. She does have some drug seeking behavior as well and she was counseled regarding that. PHYSICAL EXAMINATION: General: The patient is awake, alert, oriented x3, sitting up in the bed in no apparent distress. Head and Neck Exam: Extraocular muscles intact. Pupils equally round and reactive to light. Mucous membranes are moist. Neck is supple. There is no jugular venous distention (JVD). Cardiovascular: S1 and S2, regular rate. Trace edema of the bilateral lower extremities. Respiratory: Lungs are clear auscultation bilaterally Abdomen: Soft. Positive bowel sounds. no epigastric area and the left lower quadrant. No organomegaly Genitourinary: Deferred Musculoskeletal: Normal range of motion Central Nervous System (VOLUNTEER MANAGER): No focal deficit. Power is 5/5 in all extremities. Medictations. As per discharge reconciliation medication list Activity as tolerated Diet. 2 g sodium diet Follow-up appointments. PCP in 1 week Condition on discharge. Patient is medically optimized for discharge Discharge disposition: Home Total time spent on this discharge including coordination of care, review of chart documentation and extubation contact is around 35 minutes Vital Signs/I&Os Vital Signs Date Time Temp Pulse Resp B/P (MAP) Pulse Ox O2 Delivery O2 Flow Rate FiO2 12/28/18 12:40 18 12/28/18 04:00 97.3 74 104/70 (81) 98 Room Air I&O- Last 24 Hours up to 6 AM 12/28/18 06:00 Intake Total 840 ml Balance 840 ml Laboratory Data Labs 24H Laboratory Tests 2 12/27/18 23:15: Bedside Glucose (Misc Panel) 114H 12/28/18 06:49: Immature Granulocyte % (Auto) 0.7, Neutrophils (%) (Auto) 74.3H, Lymphocytes (%) (Auto) 15.0L, Monocytes (%) (Auto) 6.7H, Eosinophils (%) (Auto) 2.3, Basophils (%) (Auto) 1.0, Neutrophils # (Auto) 5.2, Lymphocytes # (Auto) 1.1L, Monocytes # (Auto) 0.5, Eosinophils # (Auto) 0.2, Basophils # (Auto) 0.1, Nucleated Red Blood Cells % (auto) 0.0, Anion Gap 7L, Glomerular Filtration Rate > 60.0, Calcium Level 9.4 CBC/BMP Laboratory Tests 12/28/18 06:49 FSBS Laboratory Tests Test 12/27/18 23:15 Range/Units Bedside Glucose (Misc Panel) 114 70-105 MG/DL Discharge Medications Scheduled Etonogestrel (Nexplanon) 68 Mg Implant, 68 MG SC ASDIRECTED, (Reported) INITIAL IMPLANT IN MAY 2014 Multivitamin (Multivitamins) 1 Each Capsule, 1 CAP PO DAILY, (Reported) Pantoprazole Sodium (Protonix) 20 Mg Tablet.dr, 20 MG PO DAILY Scheduled PRN Dicyclomine HCl (Dicyclomine HCl) 10 Mg Capsule, 10 MG PO Q8HP PRN for pain Allergies Coded Allergies: No Known Allergies (Unverified , 12/24/18) REX BUCIO MD Dec 28, 2018 13:40
== END 2018-12-28 14:45 | disposition home or self-care (01) | DRG 379 ==
LOC: M ED 20:59 → M ED INP 23:01 → M MS4PR 12-25 10:35
PROVIDERS: ADMIT Internal Medicine; ATTEND Internal Medicine
DX: K29.21 Alcoholic gastritis with bleeding (principal); F10.20 Alcohol dependence, uncomplicated; E87.6 Hypokalemia; F17.200 Nicotine dependence, unspecified, uncomplicated; K59.00 Constipation, unspecified; K71.10 Toxic liver disease with hepatic necrosis, without coma

== ENCOUNTER 2019-02-28 20:00 | Inpatient (IN) | payer OTHER ==
[~2019-02-28] VITALS: Ht 162.6 cm; Wt 58.1 kg
[~2019-02-28 20:00] MED LIST changes: +DICY1CAP8 PO; +MAG400TA PO; +PROT20TA11 PO; +THIA100TA PO
[2019-02-28] MEDS ORDERED: NS 1,000 ML IV ONE (20:15)
[2019-02-28] MEDS ORDERED: LORazepam 2 MG/ML VIAL (J2060) IV STA (21:06)
[2019-02-28 21:11] LABS: BASO # 0.1 10^3/uL (0.0-0.2); BASO % 0.6 % (0.0-1.0); EOS % 0.2 % (0.0-3.0); HEMATOCRIT 25.9 % (36.0-47.0); HEMOGLOBIN 8.8 g/dl (12.0-15.5); LYMPH # 0.5 10^3/uL (1.5-5.0); LYMPH % 4.3 % (24.0-44.0); MEAN CORPUSCULAR HEMOGLOBIN 33.5 pg (27.0-33.0); MEAN CORPUSCULAR VOLUME 98.5 fl (80.0-96.0); MONO # 0.5 10^3/uL (0.0-0.8); MONO % 4.2 % (0.0-5.0); PLATELET COUNT, AUTOMATED 88 10^3/uL (150-450); RED BLOOD COUNT 2.63 10^6/uL (4.00-5.40); WHITE BLOOD COUNT 11.1 10^3/uL (4.0-10.0)
[2019-02-28] MEDS ORDERED: ONDANSETRON 4MG/2ML VIAL (J2405) IV ONE (21:15)
[2019-02-28 21:36] LABS: AMPHETAMINES LEVEL URINE NEGATIVE (NEGATIVE); BARBITURATES URINE NEGATIVE (NEGATIVE); BENZODIAZEPINES URINE NEGATIVE (NEGATIVE); CANNABINOIDS URINE NEGATIVE (NEGATIVE); COCAINE METABOLITE URINE NEGATIVE (NEGATIVE); METHADONE URINE NEGATIVE (NEGATIVE); OPIATES URINE NEGATIVE (NEGATIVE); PHENCYCLIDINE URINE NEGATIVE (NEGATIVE)
[2019-02-28 21:44] LABS: ALBUMIN 2.9 GM/DL (3.2-5.2); ALT/SGPT 54 U/L (12-78); BILIRUBIN,DIRECT 1.9 MG/DL (0.0-0.2); BILIRUBIN,TOTAL 2.6 MG/DL (0.2-1.0); BLOOD UREA NITROGEN 3 MG/DL (7-18); CALCIUM LEVEL 8.2 MG/DL (8.5-10.1); CARBON DIOXIDE LEVEL 20 MEQ/L (21-32); CHLORIDE LEVEL 88 MEQ/L (98-107); CREATININE FOR GFR 0.44 MG/DL (0.55-1.30); ETHYL ALCOHOL (ETHANOL) 0.015 % (0.000-0.010); GLOMERULAR FILTRATION RATE > 60.0 (>60); GLUCOSE, FASTING 95 MG/DL (70-100); LIPASE 423 U/L (73-393); POTASSIUM SERUM 2.8 MEQ/L (3.5-5.1); SODIUM LEVEL 130 MEQ/L (136-145); TOTAL PROTEIN 7.1 GM/DL (6.4-8.2)
[2019-02-28] MEDS ORDERED: MULTIVITAMIN -ADULT INJECTION 10 ML, THIAMINE INJection 100 MG, FOLIC ACID 1 MG in NS 1... IV ONE (22:00)
[2019-02-28] MEDS ORDERED: KCL 10MEQ/100ML SWI (KRUN) 10 MEQ in IV 1 EA IV ONE ×4 (22:15)
[2019-02-28] MEDS ORDERED: POTASSIUM CHLORIDE 10 MEQ SR TABLET PO ONE (22:15)
[2019-02-28] MEDS ORDERED: ISOVUE-370 76% 100ML VIAL (Q9967) As Ordered ONE (22:27)
[2019-02-28] MEDS ORDERED: KCL 20MEQ IN D5/NS 1000ML 1,000 ML IV SCH (22:30)
[2019-02-28] MEDS ORDERED: THIAMINE HCL 200 MG/2 ML VIAL (J3411) IV ONE (22:30)
--- NOTE | 2019-02-28 23:30 | REPVR ---
PROCEDURE INFORMATION: Exam: CT Abdomen And Pelvis With Contrast Exam date and time: 02/28/2019 10:32 PM Age: 28 years old Clinical indication: Pain and abnormal findings; Abnormal lab test; Elevated lipase; Abdominal pain; Generalized; Additional info: Abd pain, elev lipase, eval for pancreatitis TECHNIQUE: Imaging protocol: Computed tomography of the abdomen and pelvis with intravenous contrast. Radiation optimization: All CT scans at this facility use at least one of these dose optimization techniques: automated exposure control; mA and/or kV adjustment per patient size (includes targeted exams where dose is matched to clinical indication); or iterative reconstruction. Contrast material: ISOVUE 370; Contrast volume: 100 ml; Contrast route: IV; COMPARISON: CT ABD/PEL W/IV CONTRAST ONLY 01/16/2019 9:36 AM FINDINGS: Liver: The liver at mid clavicular line measures 20.2 cm. The liver attenuation is 43 Hounsfield units and the spleen is 123 Hounsfield units. Gallbladder and bile ducts: Normal. No calcified stones. No ductal dilation. Pancreas: Normal. No ductal dilation. Spleen: The spleen measures 10.4 cm. Adrenals: Normal. No mass. Kidneys and ureters: Normal. No hydronephrosis. Stomach and bowel: Unremarkable. No obstruction. No mucosal thickening. Appendix: There are no changes of appendicitis. A normal appendix is not seen. Intraperitoneal space: Unremarkable. No free air. No significant fluid collection. Vasculature: Unremarkable. No abdominal aortic aneurysm. Lymph nodes: Unremarkable. No enlarged lymph nodes. Bladder: Unremarkable as visualized. Reproductive: Unremarkable as visualized. Bones/joints: Unremarkable. No acute fracture. Soft tissues: Unremarkable. IMPRESSION: 1. There has been little change from 01/16/2019. No acute interval process is identified. 2. Hepatomegaly with fatty infiltration. 3. Otherwise negative CT abdomen/pelvis. Peripancreatic fat is within normal limits. Electronically signed by: Kwabena Broderick On 02/28/2019 23:29:59 PM
[2019-03-01] VITALS (12 sets, daily range): BP systolic 89–116; BP diastolic 52–78
[2019-03-01] MEDS ORDERED: LORazepam 2 MG TAB PO PRN
[2019-03-01] MEDS ORDERED: VITMTA PO (00:06)
[2019-03-01] MEDS ORDERED: ACETAMINOPHEN TAB 650MG DOSE (2X325MG) PO PRN (01:45)
--- NOTE | 2019-03-01 02:17 | HPEPDOC ---
[facility] Medical History & Physical Date of Admission Mar 01, 2019 Date of Service: Mar 01, 2019 Attending Physician: IRASEMA RICHMOND MD History and Physical CHIEF COMPLAINT: Abdominal pain and vomiting HISTORY OF PRESENT ILLNESS: 28-year-old alcoholic female presents from home with abdominal pain and vomiting after binge drinking today. She was admitted 1 month ago for alcoholic hepatitis, reportedly did not have any alcohol since then. She started drinking heavily today because she was alone in her apartment on which made her depressed. She is currently experiencing nausea, vomiting and diffuse abdominal pain. She denies any other associated symptoms, denies chest pain, shortness of breath, constipation or diarrhea at this time. 10 point review of system is negative except for above PAST MEDICAL HISTORY: 1. Alcoholism. 2. Alcoholic hepatitis. 3. Pancreatitis. PAST SURGICAL HISTORY: 1. None. SOCIAL HISTORY: Smokes 2-3 cigarettes a day. Currently an alcoholic. Denies drug use FAMILY HISTORY: No family history of cancer or heart disease ALLERGIES: Please see below. HOME MEDICATIONS: Please see below. PHYSICAL EXAMINATION: VITAL SIGNS: Please see below. GENERAL: No distress HEENT: Normocephalic, atraumatic, dry mucous membranes NECK: Supple CARDIOVASCULAR EXAMINATION: S1, S2, tachycardic RESPIRATORY EXAMINATION: Clear to auscultation, no wheezing ABDOMINAL EXAMINATION: Soft, diffuse tenderness to palpation, no rebound or guarding, nondistended, positive bowel sounds EXTREMITIES: Range of motion intact SKIN: No rash NEUROLOGICAL EXAMINATION: Alert and oriented 3, no focal deficits PSYCHIATRIC EXAMINATION: Calm and cooperative LABORATORY DATA: See below. IMAGING: CT consistent with hepatomegaly and fatty of titration, no acute pathology MICROBIOLOGY: Please see below. ASSESSMENT: 28-year-old alcoholic female being admitted for alcoholic hepati tis/hepatitis after binge drinking today. PLAN: 1. Alcoholic hepatitis. Supportive care, will trend LFTs, continue IV hydration, PPI, pain control and electrolyte replenishment. 2. Acute peritonitis. Lipase elevated with abdominal pain, continue IV hydration. 3. Hypokalemia. Likely due to vomiting and decreased intake, patient adamantly refused IV supplementation due to pain/discomfort, discussed the risks of arrhythmias, including life-threatening arrhythmias, but patient only wants oral supplementation at this time. Received 40 mEq of potassium in the ED, continue potassium chloride 40 mEq every 4 hours 3 doses. Potassium chloride also added to IV fluids, recheck in the morning. 4. Alcoholism. [facility] protocol, thiamine, folic acid and multivitamins, discussed importance of alcohol cessation with the patient. DVT prophylaxis: TEDs. GI per flexes: PPI Vital Signs Vital Signs Date Time Temp Pulse Resp B/P (MAP) Pulse Ox O2 Delivery O2 Flow Rate FiO2 03/01/19 01:45 93 98/65 (76) 97 02/28/19 21:30 18 Room Air 02/28/19 20:54 99.6 Laboratory Data Labs 24H Laboratory Tests 2 02/28/19 20:23: Immature Granulocyte % (Auto) 0.7, Neutrophils (%) (Auto) 90.0H, Lymphocytes (%) (Auto) 4.3L, Monocytes (%) (Auto) 4.2, Eosinophils (%) (Auto) 0.2, Basophils (%) (Auto) 0.6, Neutrophils # (Auto) 10.0H, Lymphocytes # (Auto) 0.5L, Monocytes # (Auto) 0.5, Eosinophils # (Auto) 0.0, Basophils # (Auto) 0.1, Nucleated Red Blood Cells % (auto) 0.0, Immature Platelet Fraction 4.1, Anion Gap 22H, Glomerular Filtration Rate > 60.0, Calcium Level 8.2L, Total Bilirubin 2.6H, Direct Bilirubin 1.9H, Aspartate Amino Transf (AST/SGOT) 483H, Alanine Aminotransferase (ALT/SGPT) 54, Alkaline Phosphatase 435H, Total Protein 7.1, Albumin 2.9L, Albumin/Globulin Ratio 0.69L, Lipase 423H, Urine Opiates Screen NEGATIVE, Urine Methadone Screen NEGATIVE, Urine Barbiturates Screen NEGATIVE, Urine Phencyclidine Screen NEGATIVE, Urine Amphetamines Screen NEGATIVE, Urine Benzodiazepines Screen NEGATIVE, Urine Cocaine Metabolite Screen NEGATIVE, Urine Cannabinoids Screen NEGATIVE, Ethyl Alcohol Level 0.015H CBC/BMP Laboratory Tests 02/28/19 20:23 Home Medications Scheduled Multivitamins (Thera M Plus Tablet) 1 Each Tablet, 1 TAB PO DAILY Allergies Coded Allergies: No Known Allergies (Unverified , 12/24/18) A-FIB/CHADSVASC A-FIB History Current/History of A-Fib/PAF?: No IRASEMA RICHMOND MD Mar 01, 2019 02:17
[2019-03-01 02:43] LABS: OSMOLALITY SERUM 276 MOSM/KG (275-295)
[2019-03-01] MEDS: POTASSIUM CHLORIDE 10 MEQ SR TABLET PO SCH ×3 (03:51→10:48)
[2019-03-01] MEDS: ONDANSETRON 4MG/2ML VIAL (J2405) IV PRN ×3 (03:59→20:07)
[2019-03-01] MEDS: MORPHINE 2 MG/ML 1ML VIAL (J2270) IV PRN ×3 (04:43→20:08)
[2019-03-01 04:51] LABS: HEMATOCRIT 24.6 % (36.0-47.0); MEAN CORPUSCULAR HEMOGLOBIN 32.8 pg (27.0-33.0); MEAN CORPUSCULAR HGB CONC 32.5 g/dl (32.0-36.5); MEAN CORPUSCULAR VOLUME 100.8 fl (80.0-96.0); RED BLOOD COUNT 2.44 10^6/uL (4.00-5.40); WHITE BLOOD COUNT 8.5 10^3/uL (4.0-10.0)
[2019-03-01 04:53] LABS: PLATELET COUNT, AUTOMATED 82 10^3/uL (150-450)
[2019-03-01 05:30] LABS: ALBUMIN 2.6 GM/DL (3.2-5.2); ALT/SGPT 47 U/L (12-78); BILIRUBIN,TOTAL 2.9 MG/DL (0.2-1.0); BLOOD UREA NITROGEN 2 MG/DL (7-18); CALCIUM LEVEL 7.8 MG/DL (8.5-10.1); CARBON DIOXIDE LEVEL 25 MEQ/L (21-32); CHLORIDE LEVEL 95 MEQ/L (98-107); CREATININE FOR GFR 0.49 MG/DL (0.55-1.30); GLOMERULAR FILTRATION RATE > 60.0 (>60); GLUCOSE, FASTING 98 MG/DL (70-100); MAGNESIUM LEVEL 1.2 MG/DL (1.8-2.4); POTASSIUM SERUM 3.2 MEQ/L (3.5-5.1); SODIUM LEVEL 133 MEQ/L (136-145); TOTAL PROTEIN 6.6 GM/DL (6.4-8.2)
[2019-03-01] MEDS ORDERED: MAG SULF 1GM/100ML (MAG RUN) 1 GM in IV 1 EA IV ONE (05:45)
[2019-03-01] MEDS: PANTOPRAZOLE 40MG TAB (PROTONIX) PO SCH ×2 (08:35→20:06)
[2019-03-01] MEDS: MULTIVITAMINS/MINERALS THERAP 1 TAB PO SCH (08:35)
[2019-03-01] MEDS: THIAMINE 100 MG TAB PO SCH ×2 (08:35→20:06)
[2019-03-01] MEDS: FOLIC ACID 1 MG TAB PO SCH (08:35)
[2019-03-01] MEDS: KCL 20MEQ IN D5/NS 1000ML 1,000 ML IV SCH ×3 (08:36→18:00)
--- NOTE | 2019-03-01 10:55 | IPNPDOC ---
Subjective Date Seen The patient was seen on 03/01/19. Subjective Chief Complaint/HPI complains of abdominal pain after breakfast . however does not want to take liquid diet , wants to continue on regular diet. Says has not eaten in 2 days and wants to eat now. No fever or chills, has not had a bowel movement no fever or chills, no signs of alcohol withdrawal. As per nurse when she is out of bed she becomes very tachycardic to 160s but it is sinus tachycardia. Objective Physical Examination General Exam: Positive: Alert, Cooperative, No Acute Distress Eye Exam: Positive: PERRLA, Conjunctiva & lids normal, EOMI; Negative: Sclera icteric ENT Exam: Positive: Atraumatic, Mucous membr. moist/pink, Pharynx Normal Neck Exam: Positive: Supple; Negative: JVD, thyromegaly Chest Exam: Positive: Clear to auscultation, Normal air movement Heart Exam: Positive: Rate Normal, Regular Rhythm, Normal S1, Normal S2; Negative: Murmurs, Rubs Telemetry: Positive: Sinus, Tachycardia Abdomen Exam: Positive: BS Hyperactive, Soft, Tenderness (in all the quadrants) Extremity Exam: Negative: Clubbing, Cyanosis, Edema Skin Exam: Positive: Nl turgor and temperature; Negative: Rash, Breakdown Neuro Exam: Positive: Normal Speech, Strength at 5/5 X4 ext, Normal Tone Assessment /Plan Assessment 28-year-old alcoholic female admitted for alcoholic hepatitis/pancreatitis after binge drinking today. Alcoholic hepatitis. Supportive care, will trend LFTs, continue IV hydration, PPI, pain control and electrolyte replenishment. watch for refeeding syndrome. replace phos and mag and K Electrolyte imbalance continue replacements Acute pancreatitis Lipase elevated with abdominal pain, continue IV hydration. Alcoholism. [facility] protocol, thiamine, folic acid and multivitamins, discussed importance of alcohol cessation with the patient. Thrombocytopenia due to alcohol mediated bone marrow suppression Anemia with Macrocytosis due to alcohol abuse and bone marrow suppression Vit B12 and folate levels are normal there is no iron def. Nicotine dependence counselled about quitting smoking DVT prophylaxis: TEDs. Plan/VTE VTE Prophylaxis Ordered?: Yes VS, I&O, 24H, Fishbone Vital Signs/I&O Vital Signs Date Time Temp Pulse Resp B/P (MAP) Pulse Ox O2 Delivery O2 Flow Rate FiO2 03/01/19 08:00 129 100/64 03/01/19 07:40 98.2 18 97 Room Air I&O- Last 24 Hours up to 6 AM 03/01/19 06:00 Intake Total 810 ml Output Total 0 ml Balance 810 ml Laboratory Data 24H LABS Laboratory Tests 2 02/28/19 20:23: Immature Granulocyte % (Auto) 0.7, Neutrophils (%) (Auto) 90.0H, Lymphocytes (%) (Auto) 4.3L, Monocytes (%) (Auto) 4.2, Eosinophils (%) (Auto) 0.2, Basophils (%) (Auto) 0.6, Neutrophils # (Auto) 10.0H, Lymphocytes # (Auto) 0.5L, Monocytes # (Auto) 0.5, Eosinophils # (Auto) 0.0, Basophils # (Auto) 0.1, Nucleated Red Blood Cells % (auto) 0.0, Immature Platelet Fraction 4.1, Anion Gap 22H, Glomerular Filtration Rate > 60.0, Osmolality 276, Calcium Level 8.2L, Total Bilirubin 2.6H, Direct Bilirubin 1.9H, Aspartate Amino Transf (AST/SGOT) 483H, Alanine Aminotransferase (ALT/SGPT) 54, Alkaline Phosphatase 435H, Total Protein 7.1, Albumin 2.9L, Albumin/Globulin Ratio 0.69L, Lipase 423H, Urine Opiates Screen NEGATIVE, Urine Methadone Screen NEGATIVE, Urine Barbiturates Screen NEGATIVE, Urine Phencyclidine Screen NEGATIVE, Urine Amphetamines Screen NEGATIVE, Urine Benzodiazepines Screen NEGATIVE, Urine Cocaine Metabolite Screen NEGATIVE, Urine Cannabinoids Screen NEGATIVE, Ethyl Alcohol Level 0.015H 03/01/19 03:43: Nucleated Red Blood Cells % (auto) 0.0, Anion Gap 13, Glomerular Filtration Rate > 60.0, Calcium Level 7.8L, Total Bilirubin 2.9H, Aspartate Amino Transf (AST/SGOT) 413H, Alanine Aminotransferase (ALT/SGPT) 47, Alkaline Phosphatase 350H, Total Protein 6.6, Albumin 2.6L, Albumin/Globulin Ratio 0.65L, Phosphorus Level 2.0L, Magnesium Level 1.2L CBC/BMP Laboratory Tests 02/28/19 20:23 03/01/19 03:43 FANTA MAHER MD Mar 01, 2019 10:55
[2019-03-01] MEDS: MAG SULF 1GM/100ML (MAG RUN) 1 GM in IV 1 EA IV SCH ×2 (12:00→12:10)
[2019-03-01] MEDS ORDERED: SODIUM PHOSPHATE INJ 30 MMOL in D5W 500 ML IV ONE (12:00)
[2019-03-01] MEDS: MAGNESIUM OXIDE 400 MG TAB (MAG-OX) PO SCH ×2 (12:09→20:06)
[2019-03-01] MEDS: LORazepam 2 MG/ML VIAL (J2060) IV PRN (23:05)
[2019-03-02] VITALS (18 sets, daily range): BP systolic 101–134; BP diastolic 63–86
[2019-03-02] MEDS: LORazepam 2 MG/ML VIAL (J2060) IV PRN ×4 (00:05→03:37)
[2019-03-02] MEDS: KCL 20MEQ IN D5/NS 1000ML 1,000 ML IV SCH ×3 (01:07→21:06)
[2019-03-02] MEDS ORDERED: LORazepam 2 MG/ML VIAL (J2060) As Ordered ONE (03:29)
[2019-03-02 05:42] LABS: MEAN CORPUSCULAR HEMOGLOBIN 33.3 pg (27.0-33.0); MEAN CORPUSCULAR HGB CONC 31.7 g/dl (32.0-36.5); MEAN CORPUSCULAR VOLUME 105.1 fl (80.0-96.0); RED BLOOD COUNT 1.98 10^6/uL (4.00-5.40); WHITE BLOOD COUNT 8.7 10^3/uL (4.0-10.0)
[2019-03-02 05:51] LABS: HEMATOCRIT 20.8 % (36.0-47.0); PLATELET COUNT, AUTOMATED 98 10^3/uL (150-450)
[2019-03-02 05:52] LABS: HEMOGLOBIN 6.6 g/dl (12.0-15.5)
[2019-03-02 06:16] LABS: ALBUMIN 2.2 GM/DL (3.2-5.2); ALT/SGPT 50 U/L (12-78); BILIRUBIN,TOTAL 2.5 MG/DL (0.2-1.0); BLOOD UREA NITROGEN < 1 MG/DL (7-18); CALCIUM LEVEL 7.1 MG/DL (8.5-10.1); CARBON DIOXIDE LEVEL 19 MEQ/L (21-32); CHLORIDE LEVEL 104 MEQ/L (98-107); CREATININE FOR GFR 0.46 MG/DL (0.55-1.30); GLOMERULAR FILTRATION RATE > 60.0 (>60); GLUCOSE, FASTING 148 MG/DL (70-100); MAGNESIUM LEVEL 1.7 MG/DL (1.8-2.4); SODIUM LEVEL 134 MEQ/L (136-145); TOTAL PROTEIN 5.6 GM/DL (6.4-8.2)
[2019-03-02] MEDS: NEUTRA-PHOS 1.5 GM PACKET PO SCH ×3 (08:00→18:16)
[2019-03-02] MEDS: PANTOPRAZOLE 40MG TAB (PROTONIX) PO SCH ×2 (09:00→21:07)
[2019-03-02] MEDS: MAGNESIUM OXIDE 400 MG TAB (MAG-OX) PO SCH ×2 (09:00→21:07)
[2019-03-02] MEDS: THIAMINE 100 MG TAB PO SCH ×2 (09:00→21:07)
[2019-03-02] MEDS: SODIUM PHOSPHATE INJ 30 MMOL in D5W 500 ML IV SCH ×2 (10:03→13:11)
--- NOTE | 2019-03-02 13:07 | IPNPDOC ---
Subjective Date Seen The patient was seen on 03/02/19. Subjective Chief Complaint/HPI Pt is a 28-year-old female admitted for alcoholic hepatitis/pancreatitis after a binge-drinking episode. Per the medical records, pt has had frequent admissions for pancreatitis. Today the pt is seen laying in bed. She requires a blood transfusion due to severe anemia however she refuses. She stated that she 'needs time to process things' first. She is 'too tired' to decide if she wants the transfusion. I have tried to impress upon her how important it is, she stated she will decide later. Pt stated she is angry at the doctor who would give her her medication that she needs. she stated she was denied morphine overnight and it has worsened her stomach pain. Per nursing, pt became abusive and aggressive overnight and received Ativan prn. General: Reports: ROS Unobtainable, Chills Gastrointestinal: Reports: Abdominal Pain (declined to answer other questions) Objective Physical Examination General Exam: Positive: Alert, No Acute Distress; Negative: Cooperative Eye Exam: Positive: PERRLA, Conjunctiva & lids normal, EOMI; Negative: Sclera icteric ENT Exam: Positive: Atraumatic, Mucous membr. moist/pink, Pharynx Normal Neck Exam: Positive: Supple; Negative: JVD, thyromegaly Chest Exam: Positive: Clear to auscultation, Normal air movement Heart Exam: Positive: Rate Normal, Regular Rhythm, Normal S1, Normal S2; Negative: Murmurs, Rubs Telemetry: Positive: Sinus, Tachycardia Abdomen Exam: Positive: Normal bowel sounds, Soft, Tenderness (diffuse ) Extremity Exam: Negative: Clubbing, Cyanosis, Edema Skin Exam: Positive: Nl turgor and temperature; Negative: Rash, Breakdown Neuro Exam: Positive: Normal Speech Psych Exam: Positive: Other (pt is appears annoyed and angry ) Assessment /Plan Assessment Pt is a 28-year-old female admitted for alcoholic hepatitis/pancreatitis after a binge-drinking episode. Per the medical records, pt has had frequent admissions for pancreatitis. Pt has a PMHx of Pancreatitis, FLD, GI Bleed, alcohol abuse, Perforation of the bladder, Duodenitis. Alcoholic hepatitis. Supportive care, will trend LFTs, continue IV hydration, PPI, pain control and electrolyte replenishment. possible re-feeding syndrome replace phos and mag and K Alcohol abuse with Now in alcohol withdrawal CIWA protocol, thiamine, folic acid and multi-vitamins importance of alcohol cessation discussed with the patient currently in withdrawal; prescribed Ativan 2mg overnight Will refer to substance abuse rehab as outpatient Electrolyte imbalance possibly from refeeding syndrome continue daily monitoring continue replacements Acute pancreatitis unlikely CT abdomen negative for pancreatis inflammation mild lipase elevation probably from gastritis or duodenitis. Anemia and thrombocytopenia due to alcohol mediated bone marrow suppression rule out GIB. will send stool for occult blood CT abdomen so signs of cirrhosis . Has hepatomegaly with fatty infiltration. transfuse 2 units of PRBC if agrees. Anemia with Macrocytosis due to alcohol abuse and bone marrow suppression Vit B12 and folate levels are normal there is no iron def H&H trending downwards; pt declined a blood transfusion Nicotine dependence counselled about quitting smoking Plan/VTE VTE Prophylaxis Ordered?: Yes (TEDs) VS, I&O, 24H, Fishbone Vital Signs/I&O Vital Signs Date Time Temp Pulse Resp B/P (MAP) Pulse Ox O2 Delivery O2 Flow Rate FiO2 03/02/19 12:00 97.6 121 19 112/72 (85) 90 Room Air I&O- Last 24 Hours up to 6 AM 03/02/19 06:00 Intake Total 3500 ml Output Total 650 ml Balance 2850 ml Laboratory Data 24H LABS Laboratory Tests 2 03/02/19 05:28: Nucleated Red Blood Cells % (auto) 0.0, Immature Platelet Fraction 5.2, Anion Gap 11, Glomerular Filtration Rate > 60.0, Calcium Level 7.1L, Phosphorus Level 1.0#L, Magnesium Level 1.7L, Total Bilirubin 2.5H, Aspartate Amino Transf (AST/SGOT) 335H, Alanine Aminotransferase (ALT/SGPT) 50, Alkaline Phosphatase 321H, Total Protein 5.6L, Albumin 2.2L, Albumin/Globulin Ratio 0.65L CBC/BMP Laboratory Tests 03/02/19 05:28 Attending Note I have personally performed a face to face diagnostic evaluation on this patient. I have reviewed and agree with the care plan documented above. ADRIANA RAI PA-C Mar 02, 2019 13:07 FANTA MAHER MD Mar 02, 2019 17:19
[2019-03-02] MEDS: MORPHINE 2 MG/ML 1ML VIAL (J2270) IV PRN ×2 (13:11→22:44)
[2019-03-02 16:08] LABS: BLOOD UREA NITROGEN < 1 MG/DL (7-18); CALCIUM LEVEL 7.5 MG/DL (8.5-10.1); CARBON DIOXIDE LEVEL 20 MEQ/L (21-32); CHLORIDE LEVEL 101 MEQ/L (98-107); GLOMERULAR FILTRATION RATE > 60.0 (>60); GLUCOSE, FASTING 142 MG/DL (70-100); MAGNESIUM LEVEL 1.7 MG/DL (1.8-2.4); PHOSPHORUS LEVEL 4.1 MG/DL (2.5-4.9); POTASSIUM SERUM 3.4 MEQ/L (3.5-5.1); SODIUM LEVEL 134 MEQ/L (136-145)
[2019-03-02] MEDS: FOLIC ACID 1 MG TAB PO SCH (16:30)
[2019-03-02] MEDS: MULTIVITAMINS/MINERALS THERAP 1 TAB PO SCH (16:30)
[2019-03-02] MEDS: ONDANSETRON 4MG/2ML VIAL (J2405) IV PRN (22:43)
[2019-03-03] VITALS (9 sets, daily range): BP systolic 101–121; BP diastolic 58–82
[2019-03-03] MEDS: KCL 20MEQ IN D5/NS 1000ML 1,000 ML IV SCH (03:02)
[2019-03-03] MEDS ORDERED: MORPHINE 2 MG/ML 1ML VIAL (J2270) IV ONE (04:00)
[2019-03-03 05:33] LABS: HEMATOCRIT 28.6 % (36.0-47.0); MEAN CORPUSCULAR HEMOGLOBIN 31.6 pg (27.0-33.0); MEAN CORPUSCULAR HGB CONC 32.2 g/dl (32.0-36.5); MEAN CORPUSCULAR VOLUME 98.3 fl (80.0-96.0); PLATELET COUNT, AUTOMATED 127 10^3/uL (150-450); RED BLOOD COUNT 2.91 10^6/uL (4.00-5.40); WHITE BLOOD COUNT 10.7 10^3/uL (4.0-10.0)
[2019-03-03 05:34] LABS: ALBUMIN 2.1 GM/DL (3.2-5.2); ALT/SGPT 45 U/L (12-78); BILIRUBIN,TOTAL 3.9 MG/DL (0.2-1.0); BLOOD UREA NITROGEN < 1 MG/DL (7-18); CALCIUM LEVEL 7.3 MG/DL (8.5-10.1); CARBON DIOXIDE LEVEL 21 MEQ/L (21-32); CHLORIDE LEVEL 103 MEQ/L (98-107); CREATININE FOR GFR 0.32 MG/DL (0.55-1.30); GLOMERULAR FILTRATION RATE > 60.0 (>60); GLUCOSE, FASTING 107 MG/DL (70-100); POTASSIUM SERUM 3.1 MEQ/L (3.5-5.1); SODIUM LEVEL 135 MEQ/L (136-145); TOTAL PROTEIN 5.5 GM/DL (6.4-8.2)
[2019-03-03 05:51] LABS: HEMOGLOBIN 9.2 g/dl (12.0-15.5)
[2019-03-03] MEDS: MULTIVITAMINS/MINERALS THERAP 1 TAB PO SCH (08:07)
[2019-03-03] MEDS: POTASSIUM CHLORIDE 10 MEQ SR TABLET PO SCH ×2 (08:07→20:13)
[2019-03-03] MEDS: MAGNESIUM OXIDE 400 MG TAB (MAG-OX) PO SCH ×2 (08:08→20:13)
[2019-03-03] MEDS: PANTOPRAZOLE 40MG TAB (PROTONIX) PO SCH (08:08)
[2019-03-03] MEDS: MORPHINE 2 MG/ML 1ML VIAL (J2270) IV PRN ×3 (08:08→20:14)
[2019-03-03] MEDS: THIAMINE 100 MG TAB PO SCH ×2 (08:08→20:13)
[2019-03-03] MEDS: NEUTRA-PHOS 1.5 GM PACKET PO SCH ×3 (08:08→18:01)
[2019-03-03] MEDS: FOLIC ACID 1 MG TAB PO SCH (08:08)
[2019-03-03 08:17] LABS: MAGNESIUM LEVEL 1.5 MG/DL (1.8-2.4); PHOSPHORUS LEVEL 2.2 MG/DL (2.5-4.9)
--- NOTE | 2019-03-03 11:19 | IPNPDOC ---
Subjective Date Seen The patient was seen on 03/03/19. Subjective Chief Complaint/HPI Epistaxis this am. She says this often occurs at home also. Complains of severe abdominal pain in all the quadrants, no bowel movement. Cannot each much food yet. and Eating is worsening the pain. Objective Physical Examination General Exam: Positive: Alert, No Acute Distress; Negative: Cooperative Eye Exam: Positive: PERRLA, Conjunctiva & lids normal, EOMI; Negative: Sclera icteric ENT Exam: Positive: Atraumatic, Mucous membr. moist/pink, Pharynx Normal Neck Exam: Positive: Supple; Negative: JVD, thyromegaly Chest Exam: Positive: Clear to auscultation, Normal air movement Heart Exam: Positive: Rate Normal, Regular Rhythm, Normal S1, Normal S2; Negative: Murmurs, Rubs Telemetry: Positive: Sinus, Tachycardia Abdomen Exam: Positive: Normal bowel sounds, Soft, Tenderness (diffuse ), Other (No rigidity, mild guarding present in all forrest quadrants. ) Extremity Exam: Negative: Clubbing, Cyanosis, Edema Skin Exam: Positive: Nl turgor and temperature; Negative: Rash, Breakdown Neuro Exam: Positive: Normal Speech Psych Exam: Positive: Other (pt is appears annoyed and angry ) Assessment /Plan Assessment Pt is a 28-year-old female admitted for alcoholic hepatitis/pancreatitis after a binge-drinking episode. Per the medical records, pt has had frequent admissions for pancreatitis. Pt has a PMHx of Pancreatitis, FLD, GI Bleed, alcohol abuse, Perforation of the bladder, Duodenitis. Alcoholic hepatitis. Supportive care, will trend LFTs, continue IV hydration, PPI, pain control and electrolyte replenishment. possible re-feeding syndrome replace phos and mag and K pain control with oxycodone and morphine. Acute gastritis/ duodenitis CT abdomen negative for pancreatic inflammation mild lipase elevation probably from gastritis or duodenitis. pantoprazole bid, sucralfate. Alcohol abuse with Now in alcohol withdrawal [place] protocol, thiamine, folic acid and multi-vitamins importance of alcohol cessation discussed with the patient currently in withdrawal; prescribed Ativan 2mg overnight Will refer to substance abuse rehab as outpatient Electrolyte imbalance possibly from refeeding syndrome continue daily monitoring continue replacements Anemia and thrombocytopenia due to alcohol mediated bone marrow suppression rule out GIB. will send stool for occult blood CT abdomen so signs of cirrhosis . Has hepatomegaly with fatty infiltration. transfused 2 units of PRBC Anemia with Macrocytosis due to alcohol abuse and bone marrow suppression Vit B12 and folate levels are normal there is no iron def Nicotine dependence counselled about quitting smoking Plan/VTE VTE Prophylaxis Ordered?: Yes (TEDs) VS, I&O, 24H, Fishbone Vital Signs/I&O Vital Signs Date Time Temp Pulse Resp B/P (MAP) Pulse Ox O2 Delivery O2 Flow Rate FiO2 03/03/19 08:18 20 03/03/19 08:00 97.9 104 110/61 (77) 92 Nasal Cannula 2.0 I&O- Last 24 Hours up to 6 AM 03/03/19 05:59 Intake Total 3785 ml Output Total 1100 ml Balance 2685 ml Laboratory Data 24H LABS Laboratory Tests 2 03/02/19 15:11: Anion Gap 13, Glomerular Filtration Rate > 60.0, Calcium Level 7.5L, Phosphorus Level 4.1#, Magnesium Level 1.7L 03/03/19 04:46: Anion Gap 11, Glomerular Filtration Rate > 60.0, Calcium Level 7.3L, Phosphorus Level 2.2#L, Magnesium Level 1.5L, Nucleated Red Blood Cells % (auto) 0.2H, Total Bilirubin 3.9#H, Aspartate Amino Transf (AST/SGOT) 224H, Alanine Aminotransferase (ALT/SGPT) 45, Alkaline Phosphatase 285H, Total Protein 5.5L, Albumin 2.1L, Albumin/Globulin Ratio 0.62L CBC/BMP Laboratory Tests 03/02/19 15:11 03/03/19 04:46 FANTA MAHER MD Mar 03, 2019 11:19
[2019-03-03] MEDS: oxyCODONE 5MG TAB PO PRN ×2 (11:48→18:01)
[2019-03-03] MEDS: SUCRALFATE 1 GM TAB PO SCH ×3 (11:48→20:13)
[2019-03-03] MEDS ORDERED: MAG SULF 1GM/100ML (MAG RUN) 1 GM in IV 1 EA IV ONE (12:00)
[2019-03-03] MEDS ORDERED: SLF 3 ML SYR IV PRN (13:15)
[2019-03-03] MEDS: SLF 3 ML SYR IV SCH ×2 (14:09→21:34)
[2019-03-03] MEDS: PANTOPRAZOLE 40MG INJ (PROTONIX) (C9113) IV SCH (20:13)
[2019-03-04] VITALS (7 sets, daily range): BP systolic 93–121; BP diastolic 50–79
[2019-03-04] MEDS: CEPACOL LOZENGE PO PRN ×2 (01:39→19:44)
[2019-03-04] MEDS: MORPHINE 2 MG/ML 1ML VIAL (J2270) IV PRN ×3 (02:25→21:30)
[2019-03-04 05:42] LABS: HEMATOCRIT 31.6 % (36.0-47.0); MEAN CORPUSCULAR HEMOGLOBIN 32.1 pg (27.0-33.0); MEAN CORPUSCULAR HGB CONC 31.6 g/dl (32.0-36.5); MEAN CORPUSCULAR VOLUME 101.3 fl (80.0-96.0); PLATELET COUNT, AUTOMATED 170 10^3/uL (150-450); RED BLOOD COUNT 3.12 10^6/uL (4.00-5.40); WHITE BLOOD COUNT 11.2 10^3/uL (4.0-10.0)
[2019-03-04] MEDS: SLF 3 ML SYR IV SCH ×3 (06:02→21:30)
[2019-03-04 06:15] LABS: ALT/SGPT 42 U/L (12-78); BILIRUBIN,TOTAL 4.2 MG/DL (0.2-1.0); BLOOD UREA NITROGEN 1 MG/DL (7-18); CALCIUM LEVEL 7.8 MG/DL (8.5-10.1); CARBON DIOXIDE LEVEL 24 MEQ/L (21-32); CHLORIDE LEVEL 104 MEQ/L (98-107); CREATININE FOR GFR 0.38 MG/DL (0.55-1.30); GLOMERULAR FILTRATION RATE > 60.0 (>60); GLUCOSE, FASTING 90 MG/DL (70-100); POTASSIUM SERUM 4.2 MEQ/L (3.5-5.1); SODIUM LEVEL 136 MEQ/L (136-145); TOTAL PROTEIN 5.3 GM/DL (6.4-8.2)
[2019-03-04 07:35] LABS: MAGNESIUM LEVEL 1.8 MG/DL (1.8-2.4); PHOSPHORUS LEVEL 2.2 MG/DL (2.5-4.9)
[2019-03-04] MEDS ORDERED: FUROSEMIDE 40 MG/4 ML VIAL (J1940) IV ONE (08:00)
[2019-03-04] MEDS: MULTIVITAMINS/MINERALS THERAP 1 TAB PO SCH (08:11)
[2019-03-04] MEDS: NEUTRA-PHOS 1.5 GM PACKET PO SCH ×3 (08:11→16:48)
[2019-03-04] MEDS: PANTOPRAZOLE 40MG INJ (PROTONIX) (C9113) IV SCH ×2 (08:11→21:29)
[2019-03-04] MEDS: MAGNESIUM OXIDE 400 MG TAB (MAG-OX) PO SCH ×2 (08:11→21:29)
[2019-03-04] MEDS: FOLIC ACID 1 MG TAB PO SCH (08:11)
[2019-03-04] MEDS: SUCRALFATE 1 GM TAB PO SCH ×4 (08:12→21:29)
[2019-03-04] MEDS: POTASSIUM CHLORIDE 10 MEQ SR TABLET PO SCH ×2 (08:12→21:29)
--- NOTE | 2019-03-04 08:50 | REP ---
Clinical: Shortness of breath. Technique: PA and lateral. Findings: Moderate left lower lobe effusion and infiltrate/atelectasis. Remainder examination appears normal. Impression: Left lower lobe pneumonia with effusion. Electronically Signed by Demetrio Ramirez MD 03/04/2019 08:41 A
[2019-03-04] MEDS ORDERED: MAGNESIUM OXIDE 400 MG TAB (MAG-OX) PO SCH (09:00)
--- NOTE | 2019-03-04 09:46 | IPNPDOC ---
Subjective Date Seen The patient was seen on 03/04/19. Subjective Chief Complaint/HPI continues to have severe abdominal pain maximum in the left lower quadrant and hypogastrium, denies any dysuria, no fever or chills, also complains of difficulty in taking deep breaths with pleuritic chest pain. She has been requiring 2 l of oxygen from the night of 03/02/19 Objective Physical Examination General Exam: Positive: Alert, No Acute Distress; Negative: Cooperative Eye Exam: Positive: PERRLA, Conjunctiva & lids normal, EOMI; Negative: Sclera icteric ENT Exam: Positive: Atraumatic, Mucous membr. moist/pink, Pharynx Normal Neck Exam: Positive: Supple; Negative: JVD, thyromegaly Chest Exam: Positive: Normal air movement, Diminished (at the left base. ); Negative: Rales, Rhonchi, Wheezing Heart Exam: Positive: Tachycardic, Regular Rhythm, Normal S1, Normal S2; Negative: Murmurs, Rubs Telemetry: Positive: Sinus, Tachycardia Abdomen Exam: Positive: BS Hyperactive, Soft, Tenderness (in all the quadrants but most severe inthe left lower quadrant. ), Other (No rigidity, guarding present in all the quadrants. Mild rebound in right and left lower quadrant. ) Extremity Exam: Negative: Clubbing, Cyanosis, Edema Skin Exam: Positive: Nl turgor and temperature, Other skin issue (bruising on forrest right hand and forearm.); Negative: Rash, Breakdown Neuro Exam: Positive: Normal Speech Psych Exam: Positive: Other (pt is appears annoyed and angry ) Assessment /Plan Assessment Pt is a 28-year-old female admitted for alcoholic hepatitis/pancreatitis after a binge-drinking episode. Per the medical records, pt has had frequent admissions for pancreatitis. Pt has a PMHx of Pancreatitis, FLD, GI Bleed, alcohol abuse, Perforation of the bladder, Duodenitis. She continues to have severe abdominal pain. Now also complaining of SOB and pleuritic chest pain on the left. CXR showed new left lower lobe infiltrates with effusion. Left lower lobe pneumonia with efussion HCAP will start on zosyn encourage out of bed, encourage incentive spirometry. lasix 1 dose. Persistent abdominal pain with distension may have ileus, colitis will get an abdominal xray Alcoholic hepatitis. Supportive care, will trend LFTs, continue IV hydration, PPI, pain control and electrolyte replenishment. with re-feeding syndrome replace phos and mag and K pain control with oxycodone and morphine. Acute gastritis/ duodenitis CT abdomen negative for pancreatic inflammation mild lipase elevation probably from gastritis or duodenitis. pantoprazole bid, sucralfate. Alcohol abuse with Now in alcohol withdrawal CIWA protocol, thiamine, folic acid and multi-vitamins importance of alcohol cessation discussed with the patient currently in withdrawal; prescribed Ativan 2mg overnight Will refer to substance abuse rehab as outpatient Electrolyte imbalance possibly from refeeding syndrome continue daily monitoring continue replacements Anemia and thrombocytopenia due to alcohol mediated bone marrow suppression rule out GIB. will send stool for occult blood CT abdomen so signs of cirrhosis . Has hepatomegaly with fatty infiltration. transfused 2 units of PRBC now resolved. Anemia with Macrocytosis due to alcohol abuse and bone marrow suppression Vit B12 and folate levels are normal there is no iron def Nicotine dependence counselled about quitting smoking Plan/VTE VTE Prophylaxis Ordered?: Yes (TEDs) VS, I&O, 24H, Fishbone Vital Signs/I&O Vital Signs Date Time Temp Pulse Resp B/P (MAP) Pulse Ox O2 Delivery O2 Flow Rate FiO2 03/04/19 08:00 99.0 96 16 97/58 (71) 90 Nasal Cannula 2.0 I&O- Last 24 Hours up to 6 AM 03/04/19 06:00 Intake Total 1510 ml Output Total 1250 ml Balance 260 ml Laboratory Data 24H LABS Laboratory Tests 2 03/04/19 05:22: Nucleated Red Blood Cells % (auto) 0.0, Anion Gap 8, Glomerular Filtration Rate > 60.0, Calcium Level 7.8L, Phosphorus Level 2.2L, Magnesium Level 1.8, Total Bilirubin 4.2H, Aspartate Amino Transf (AST/SGOT) 182H, Alanine Aminotransferase (ALT/SGPT) 42, Alkaline Phosphatase 293H, Total Protein 5.3L, Albumin 2.0L, Albumin/Globulin Ratio 0.61L CBC/BMP Laboratory Tests 03/04/19 05:22 FANTA MAHER MD Mar 04, 2019 09:46
--- NOTE | 2019-03-04 10:11 | REP ---
Clinical: Abdominal pain and distension. Technique: Single supine view of the abdomen and pelvis. Findings: Bowel gas pattern is nonspecific. Hepatomegaly is again noted. No abnormal calcifications. Skeletal structures intact. Impression: Nonspecific bowel gas pattern. Hepatomegaly. Electronically Signed by Demetrio Ramirez MD 03/04/2019 10:03 A
[2019-03-04] MEDS: PIPERACILLIN/TAZOBACTAM SOD 3.375 GM in D5W MINI-BAG PLUS 50 ML IV SCH ×3 (10:17→21:30)
[2019-03-04 11:20] LABS: AMYLASE 30 U/L (25-115); LIPASE 134 U/L (73-393)
[2019-03-04] MEDS: oxyCODONE 5MG TAB PO PRN ×2 (12:46→19:40)
[2019-03-05] VITALS (7 sets, daily range): BP systolic 94–117; BP diastolic 60–70
[2019-03-05] MEDS: MORPHINE 2 MG/ML 1ML VIAL (J2270) IV PRN ×3 (04:17→17:18)
[2019-03-05] MEDS: PIPERACILLIN/TAZOBACTAM SOD 3.375 GM in D5W MINI-BAG PLUS 50 ML IV SCH ×4 (04:18→21:31)
[2019-03-05] MEDS: SLF 3 ML SYR IV SCH ×3 (05:17→20:39)
[2019-03-05 06:00] LABS: HEMATOCRIT 28.7 % (36.0-47.0); HEMOGLOBIN 9.2 g/dl (12.0-15.5); MEAN CORPUSCULAR HEMOGLOBIN 31.9 pg (27.0-33.0); MEAN CORPUSCULAR HGB CONC 32.1 g/dl (32.0-36.5); MEAN CORPUSCULAR VOLUME 99.7 fl (80.0-96.0); PLATELET COUNT, AUTOMATED 184 10^3/uL (150-450); RED BLOOD COUNT 2.88 10^6/uL (4.00-5.40); WHITE BLOOD COUNT 8.6 10^3/uL (4.0-10.0)
[2019-03-05 06:24] LABS: ALBUMIN 1.9 GM/DL (3.2-5.2); ALT/SGPT 37 U/L (12-78); BILIRUBIN,TOTAL 4.6 MG/DL (0.2-1.0); BLOOD UREA NITROGEN 3 MG/DL (7-18); CALCIUM LEVEL 7.9 MG/DL (8.5-10.1); CARBON DIOXIDE LEVEL 26 MEQ/L (21-32); CHLORIDE LEVEL 100 MEQ/L (98-107); CREATININE FOR GFR 0.37 MG/DL (0.55-1.30); GLOMERULAR FILTRATION RATE > 60.0 (>60); GLUCOSE, FASTING 97 MG/DL (70-100); POTASSIUM SERUM 3.9 MEQ/L (3.5-5.1); SODIUM LEVEL 134 MEQ/L (136-145); TOTAL PROTEIN 5.3 GM/DL (6.4-8.2)
[2019-03-05] MEDS: MULTIVITAMINS/MINERALS THERAP 1 TAB PO SCH (07:51)
[2019-03-05] MEDS: MAGNESIUM OXIDE 400 MG TAB (MAG-OX) PO SCH ×2 (07:52→20:38)
[2019-03-05] MEDS: SUCRALFATE 1 GM TAB PO SCH ×4 (07:52→20:38)
[2019-03-05] MEDS: POTASSIUM CHLORIDE 10 MEQ SR TABLET PO SCH ×2 (07:52→20:39)
[2019-03-05] MEDS: NEUTRA-PHOS 1.5 GM PACKET PO SCH ×3 (07:52→18:28)
[2019-03-05] MEDS: FOLIC ACID 1 MG TAB PO SCH (07:52)
[2019-03-05] MEDS: PANTOPRAZOLE 40MG INJ (PROTONIX) (C9113) IV SCH ×2 (07:53→20:39)
[2019-03-05] MEDS: oxyCODONE 5MG TAB PO PRN ×3 (07:53→20:44)
--- NOTE | 2019-03-05 10:22 | IPNPDOC ---
Subjective Date Seen The patient was seen on 03/05/19. Subjective Chief Complaint/HPI Says the abdominal pain is a little better . It is now more localized in the left lower quadrant and the hypogastrium. No dysuria, had a normal bowel movement this am. Still has left lower chest discomfort and unable to take deep breaths due to pain there. She did say she is trying to do the incentive spirometry. No vomiting or nausea and able to nibble on some foods. Objective Physical Examination General Exam: Positive: Alert, No Acute Distress; Negative: Cooperative Eye Exam: Positive: PERRLA, Conjunctiva & lids normal, EOMI; Negative: Sclera icteric ENT Exam: Positive: Atraumatic, Mucous membr. moist/pink, Pharynx Normal Neck Exam: Positive: Supple; Negative: JVD, thyromegaly Chest Exam: Positive: Normal air movement, Diminished (at the left base. ); Negative: Rales, Rhonchi, Wheezing Heart Exam: Positive: Tachycardic, Regular Rhythm, Normal S1, Normal S2; Negative: Murmurs, Rubs Telemetry: Positive: Sinus, Tachycardia Abdomen Exam: Positive: BS Hyperactive, Soft, Tenderness (in all the quadrants but most severe inthe left lower quadrant. ), Other (No rigidity, guarding present in all the quadrants. Mild rebound in right and left lower quadrant. ) Extremity Exam: Negative: Clubbing, Cyanosis, Edema Skin Exam: Positive: Nl turgor and temperature, Other skin issue (bruising on forrest right hand and forearm.); Negative: Rash, Breakdown Neuro Exam: Positive: Normal Speech, Strength at 5/5 X4 ext, Normal Tone Psych Exam: Positive: Other (pt is appears annoyed and angry ) Assessment /Plan Assessment Pt is a 28-year-old female admitted for alcoholic hepatitis/pancreatitis after a binge-drinking episode. Per the medical records, pt has had frequent admissions for pancreatitis. Pt has a PMHx of Pancreatitis, FLD, GI Bleed, alcohol abuse, Perforation of the bladder, Duodenitis. She continues to have severe abdominal pain. Now also complaining of SOB and pleuritic chest pain on the left. CXR showed new left lower lobe infiltrates with effusion. Left lower lobe pneumonia with effusion HCAP on zosyn encourage out of bed, encourage incentive spirometry. Persistent abdominal pain with distension maybe due to ileus, colitis abdominal xray non specific bowel gas pattern. Surgery consulted. Alcoholic hepatitis. Supportive care, will trend LFTs, continue IV hydration, PPI, pain control and electrolyte replenishment. with re-feeding syndrome replace phos and mag and K pain control with oxycodone and morphine. Acute gastritis/ duodenitis CT abdomen negative for pancreatic inflammation mild lipase elevation probably from gastritis or duodenitis. pantoprazole bid, sucralfate. Alcohol abuse with Now in alcohol withdrawal CIWA protocol, thiamine, folic acid and multi-vitamins importance of alcohol cessation discussed with the patient currently in withdrawal; prescribed Ativan 2mg overnight Will refer to substance abuse rehab as outpatient Electrolyte imbalance possibly from refeeding syndrome continue daily monitoring continue replacements Anemia and thrombocytopenia due to alcohol mediated bone marrow suppression rule out GIB. will send stool for occult blood CT abdomen so signs of cirrhosis . Has hepatomegaly with fatty infiltration. transfused 2 units of PRBC now resolved. Anemia with Macrocytosis due to alcohol abuse and bone marrow suppression Vit B12 and folate levels are normal there is no iron def Nicotine dependence counselled about quitting smoking Plan/VTE VTE Prophylaxis Ordered?: Yes (TEDs) VS, I&O, 24H, Fishbone Vital Signs/I&O Vital Signs Date Time Temp Pulse Resp B/P (MAP) Pulse Ox O2 Delivery O2 Flow Rate FiO2 03/05/19 09:02 19 03/05/19 08:00 97.9 100 110/70 (83) 90 Room Air 03/05/19 04:00 2.0 I&O- Last 24 Hours up to 6 AM 03/05/19 06:00 Intake Total 1130 ml Output Total 1000 ml Balance 130 ml Laboratory Data 24H LABS Laboratory Tests 2 03/05/19 05:39: Nucleated Red Blood Cells % (auto) 0.0, Anion Gap 8, Glomerular Filtration Rate > 60.0, Calcium Level 7.9L, Total Bilirubin 4.6H, Aspartate Amino Transf (A ST/SGOT) 164H, Alanine Aminotransferase (ALT/SGPT) 37, Alkaline Phosphatase 275H, Total Protein 5.3L, Albumin 1.9L, Albumin/Globulin Ratio 0.56L CBC/BMP Laboratory Tests 03/05/19 05:39 FANTA MAHER MD Mar 05, 2019 10:22
[2019-03-05 10:44] LABS: MAGNESIUM LEVEL 1.4 MG/DL (1.8-2.4); PHOSPHORUS LEVEL 2.7 MG/DL (2.5-4.9)
[2019-03-05] MEDS ORDERED: MAG SULF 1GM/100ML (MAG RUN) 1 GM in IV 1 EA IV ONE (13:00)
--- NOTE | 2019-03-05 16:40 | CR ---
DATE OF CONSULTATION: 03/05/2019 REASON FOR CONSULT: Abdominal pain. HISTORY OF PRESENT ILLNESS: The patient is a 28-year-old alcoholic who presented to the hospital on the with abdominal pain after binge drinking. She has history of alcohol hepatitis. She was admitted to hospital with the hepatitis as well as alcoholism and left lower lobe pneumonia. Over the past couple of days the abdominal pain has been getting progressively worse mainly located towards the left lower quadrant. Imaging has been negative, therefore I was called to evaluate for a second opinion. This morning she claims that she is starting to feel slightly better. She is able tolerate food having normal bowel movements. No blood in her stool. No loose stools. No change in pain with bowel movements. No problems with urination. No nausea or vomiting. No fevers or chills. No prior history of abdominal pains. No recent trauma to the abdomen and no family history of abdominal diseases. PAST MEDICAL HISTORY: Alcoholism, alcoholic hepatitis, pancreatitis. PAST SURGICAL HISTORY: None. SOCIAL HISTORY: Smokes two to three cigarettes a day. Uses large volume of alcohol, denies drug usage. FAMILY HISTORY: Noncontributory. ALLERGIES: None. HOME MEDICATIONS: Please see medical record. REVIEW OF SYSTEMS: Pertinent, positives, and negatives as stated in the HPI. PHYSICAL EXAMINATION: General alert and oriented times three. No acute distress. Vitals: Temperature 98.5, pulse 97, respirations 17, blood pressure 103/66, pulse ox 95% room air. HEENT: Pupils equal round react to light accommodation. Heart: S1-S2 regular rate and rhythm. Lungs: Clear to auscultation bilaterally. Abdomen: Soft, slight tenderness to palpation left lower quadrant. No rebounding or guarding. No rigidity. Extremities: No clubbing, cyanosis or edema. LABORATORY DATA: White count 8.6, hemoglobin 9.2, platelets 184, potassium 3.9, creatinine 0.37, total bilirubin 4.6, AST 164, phosphatase 275, last lipase yesterday was 134. IMAGING STUDIES: Abdominal x-ray done yesterday was nonspecific bowel gas pattern with hepatomegaly. ASSESSMENT/PLAN: The patient 20-year-old female with nonspecific left lower quadrant pain likely secondary to minor ileus versus mild colitis secondary to recent alcoholism and hepatic inflammation. Could be some venous congestion and to the abdomen secondary to the hepatic and chest and resulting in some abdominal pains as well. She denies any problems with urination or bowel movements. No problems with her periods. She has had a history of left ovarian cyst on the past. At this time there is no specific indication for any type of surgery. CT may be of a benefit to further evaluate for colitis however she did have a normal CT a few days ago and x-rays were normal at this time and with the fact that the pain is improving. I think that is adequate to just treat with supportive care for now. If symptoms get worse the next step would be a repeat CT.
[2019-03-06] VITALS: BP 95/70
[2019-03-06] MEDS: MORPHINE 2 MG/ML 1ML VIAL (J2270) IV PRN ×4 (00:43→20:09)
[2019-03-06] MEDS: PIPERACILLIN/TAZOBACTAM SOD 3.375 GM in D5W MINI-BAG PLUS 50 ML IV SCH ×4 (03:12→21:49)
[2019-03-06 04:00] VITALS: BP 103/64
[2019-03-06] MEDS: SLF 3 ML SYR IV SCH ×3 (05:10→21:49)
[2019-03-06 06:00] VITALS: BP 103/64
[2019-03-06 06:28] LABS: HEMATOCRIT 30.9 % (36.0-47.0); HEMOGLOBIN 9.6 g/dl (12.0-15.5); MEAN CORPUSCULAR HGB CONC 31.1 g/dl (32.0-36.5); PLATELET COUNT, AUTOMATED 219 10^3/uL (150-450); WHITE BLOOD COUNT 8.9 10^3/uL (4.0-10.0)
[2019-03-06 07:00] LABS: ALBUMIN 1.9 GM/DL (3.2-5.2); ALT/SGPT 38 U/L (12-78); BILIRUBIN,TOTAL 4.5 MG/DL (0.2-1.0); BLOOD UREA NITROGEN 2 MG/DL (7-18); CALCIUM LEVEL 7.8 MG/DL (8.5-10.1); CARBON DIOXIDE LEVEL 25 MEQ/L (21-32); CHLORIDE LEVEL 101 MEQ/L (98-107); CREATININE FOR GFR 0.42 MG/DL (0.55-1.30); GLOMERULAR FILTRATION RATE > 60.0 (>60); GLUCOSE, FASTING 107 MG/DL (70-100); MAGNESIUM LEVEL 1.7 MG/DL (1.8-2.4); PHOSPHORUS LEVEL 2.7 MG/DL (2.5-4.9); POTASSIUM SERUM 3.8 MEQ/L (3.5-5.1); SODIUM LEVEL 135 MEQ/L (136-145); TOTAL PROTEIN 5.3 GM/DL (6.4-8.2)
[2019-03-06] MEDS: PANTOPRAZOLE 40MG INJ (PROTONIX) (C9113) IV SCH (08:15)
[2019-03-06] MEDS: NEUTRA-PHOS 1.5 GM PACKET PO SCH ×3 (08:15→17:09)
[2019-03-06] MEDS: FOLIC ACID 1 MG TAB PO SCH (08:15)
[2019-03-06] MEDS: MAGNESIUM OXIDE 400 MG TAB (MAG-OX) PO SCH ×2 (08:15→20:38)
[2019-03-06] MEDS: POTASSIUM CHLORIDE 10 MEQ SR TABLET PO SCH ×2 (08:15→20:38)
[2019-03-06] MEDS: MULTIVITAMINS/MINERALS THERAP 1 TAB PO SCH (08:15)
[2019-03-06] MEDS: SUCRALFATE 1 GM TAB PO SCH ×4 (08:16→20:38)
[2019-03-06] MEDS: CEPACOL LOZENGE PO PRN ×3 (08:16→23:44)
[2019-03-06] MEDS ORDERED: DOCUSATE SODIUM 100 MG CAP PO PRN (11:30)
--- NOTE | 2019-03-06 13:29 | IPNPDOC ---
Subjective Date Seen The patient was seen on 03/06/19. Subjective Chief Complaint/HPI Pt is a 28-year-old female admitted for alcoholic hepatitis/pancreatitis after a binge-drinking episode. Per the medical records, pt has had frequent admissions for pancreatitis. Today the pt is seen laying in bed. She reported she is doing pretty well. She has some mild coughing and requested breathing Tx from nursing staff. She denied any abdominal pain today. Pt stated she has increased her eating; her stomach is hard and she is constipated. Pt stated she feels much better than she did last week. Per nursing: pt advised them she needs to get home by tomorrow to clean house for her 's return. General: Reports: Normal Appetite; Denies: Chills, Night Sweats, Fatigue, Malaise Constitutional: Denies: Chills, Fever, Malaise, Night Sweats, Weakness Eyes: Denies: Pain ENT: Denies: Head Aches Skin: Denies: Rash, Lesions Pulmonary: Reports: Cough; Denies: Dyspnea Cardiovascular: Denies: Chest Pain, Palpitations, Edema, Lt Headedness Gastrointestinal: Reports: Constipation; Denies: Nausea, Vomiting, Abdominal Pain Genitourinary: Denies: Dysuria Musculoskeletal: Denies: Neck Pain, Back Pain, Joint Pain, Muscle Pain, Spasms Psych: Reports: Mood Normal Objective Physical Examination General Exam: Positive: Alert, Cooperative, No Acute Distress Eye Exam: Positive: PERRLA, Conjunctiva & lids normal, EOMI; Negative: Sclera icteric ENT Exam: Positive: Atraumatic, Mucous membr. moist/pink, Pharynx Normal Neck Exam: Positive: Supple; Negative: JVD, thyromegaly Chest Exam: Positive: Normal air movement, Diminished (at the left base. ); Negative: Rales, Rhonchi, Wheezing Heart Exam: Positive: Tachycardic, Regular Rhythm, Normal S1, Normal S2; Negative: Murmurs, Rubs Telemetry: Positive: Sinus, Tachycardia Abdomen Exam: Positive: BS Hyperactive, Soft; Negative: Tenderness Extremity Exam: Negative: Clubbing, Cyanosis, Edema Skin Exam: Positive: Nl turgor and temperature, Other skin issue; Negative: Rash, Breakdown Neuro Exam: Positive: Normal Speech, Cranial Nerves 3-12 NL Psych Exam: Positive: Mood NL, Other Assessment /Plan Assessment Pt is a 28-year-old female admitted for alcoholic hepatitis/pancreatitis after a binge-drinking episode. Per the medical records, pt has had frequent admissions for pancreatitis. Pt has a PMHx of Pancreatitis, FLD, GI Bleed, alcohol abuse, Perforation of the bladder, Duodenitis. Abdominal pain and L sided CP have resolved today. Mild, non-productive cough reported. CXR showed new left lower lobe infiltrates with effusion. Left lower lobe pneumonia with effusion HCAP on zosyn x 3d encourage out of bed, encourage incentive spirometry Start DuoNeb prn Persistent abdominal pain with distension pain improved; remains distended maybe due to ileus, colitis abdominal X-ray non specific bowel gas pattern. Surgery consulted; recommend supportive treatment. Alcoholic hepatitis. Supportive care, will trend LFTs, continue IV hydration, PPI, pain control and electrolyte replenishment. with re-feeding syndrome replace phos and mag and K pain control with oxycodone and morphine. Acute gastritis/ duodenitis CT abdomen negative for pancreatic inflammation mild lipase elevation probably from gastritis or duodenitis. pantoprazole bid, sucralfate. Alcohol abuse with alcohol withdrawal CIWA protocol, thiamine, folic acid and multi-vitamins importance of alcohol cessation discussed with the patient currently in withdrawal; prescribed Ativan 2mg Will refer to substance abuse rehab as outpatient Electrolyte imbalance possibly from refeeding syndrome continue daily monitoring continue replacements Anemia and thrombocytopenia due to alcohol mediated bone marrow suppression rule out GIB. will send stool for occult blood CT abdomen so signs of cirrhosis . Has hepatomegaly with fatty infiltration. transfused 2 units of PRBC now resolved. Anemia with Macrocytosis due to alcohol abuse and bone marrow suppression Vit B12 and folate levels are normal there is no iron def Nicotine dependence counselled about quitting smoking Plan/VTE VTE Prophylaxis Ordered?: Yes (TEDs) VS, I&O, 24H, Fishbone Vital Signs/I&O Vital Signs Date Time Temp Pulse Resp B/P (MAP) Pulse Ox O2 Delivery O2 Flow Rate FiO2 03/06/19 06:56 17 03/06/19 06:00 98.3 96 103/64 (77) 92 Room Air 03/05/19 04:00 2.0 I&O- Last 24 Hours up to 6 AM 03/06/19 05:59 Intake Total 220 ml Output Total 300 ml Balance -80 ml Laboratory Data 24H LABS Laboratory Tests 2 03/06/19 06:05: Nucleated Red Blood Cells % (auto) 0.2H, Anion Gap 9, Glomerular Filtration Rate > 60.0, Calcium Level 7.8L, Phosphorus Level 2.7, Magnesium Level 1.7L, Total Bilirubin 4.5H, Aspartate Amino Transf (AST/SGOT) 154H, Alanine Aminotransferase (ALT/SGPT) 38, Alkaline Phosphatase 311H, Total Protein 5.3L, Albumin 1.9L, A lbumin/Globulin Ratio 0.56L CBC/BMP Laboratory Tests 03/06/19 06:05 Attending Note I have personally performed a face to face diagnostic evaluation on this patient . I have reviewed and agree with the care plan documented above. ADRIANA RAI PA-C Mar 06, 2019 13:29 FANTA MAHER MD Mar 08, 2019 11:50
[2019-03-06] MEDS ORDERED: LORazepam 2 MG/ML VIAL (J2060) IV PRN (13:45)
[2019-03-06 14:00] VITALS: BP 94/70
[2019-03-06] MEDS: IPRATROPIUM 0.5MG/ALBUTEROL 2.5MG INH SOL UD 3ML (DUONEB)(J7620) NEB PRN (14:00)
[2019-03-06] MEDS: guaiFENesin 200 MG TAB PO PRN ×2 (17:24→23:45)
[2019-03-06] MEDS: oxyCODONE 5MG TAB PO PRN ×2 (17:25→23:43)
[2019-03-06] MEDS: PANTOPRAZOLE 40MG TAB (PROTONIX) PO SCH (20:38)
[2019-03-06 22:00] VITALS: BP 104/73
[2019-03-07] MEDS: MORPHINE 2 MG/ML 1ML VIAL (J2270) IV PRN ×2 (02:56→09:06)
[2019-03-07] MEDS: IPRATROPIUM 0.5MG/ALBUTEROL 2.5MG INH SOL UD 3ML (DUONEB)(J7620) NEB PRN (03:03)
[2019-03-07] MEDS: PIPERACILLIN/TAZOBACTAM SOD 3.375 GM in D5W MINI-BAG PLUS 50 ML IV SCH ×2 (03:15→09:11)
[2019-03-07] MEDS: SLF 3 ML SYR IV SCH (05:04)
[2019-03-07 06:00] VITALS: BP_SYST 104; BP_SYST 95; BP_DIAS 68; BP_DIAS 73
[2019-03-07 06:15] LABS: HEMOGLOBIN 9.9 g/dl (12.0-15.5); MEAN CORPUSCULAR HEMOGLOBIN 31.9 pg (27.0-33.0); MEAN CORPUSCULAR HGB CONC 31.9 g/dl (32.0-36.5); PLATELET COUNT, AUTOMATED 292 10^3/uL (150-450); WHITE BLOOD COUNT 13.2 10^3/uL (4.0-10.0)
[2019-03-07 06:48] LABS: ALBUMIN 1.8 GM/DL (3.2-5.2); ALT/SGPT 35 U/L (12-78); BILIRUBIN,TOTAL 4.6 MG/DL (0.2-1.0); BLOOD UREA NITROGEN 2 MG/DL (7-18); CALCIUM LEVEL 8.1 MG/DL (8.5-10.1); CARBON DIOXIDE LEVEL 25 MEQ/L (21-32); CHLORIDE LEVEL 101 MEQ/L (98-107); CREATININE FOR GFR 0.44 MG/DL (0.55-1.30); GLOMERULAR FILTRATION RATE > 60.0 (>60); GLUCOSE, FASTING 91 MG/DL (70-100); POTASSIUM SERUM 3.3 MEQ/L (3.5-5.1); SODIUM LEVEL 136 MEQ/L (136-145); TOTAL PROTEIN 5.2 GM/DL (6.4-8.2)
[2019-03-07] MEDS: oxyCODONE 5MG TAB PO PRN (06:54)
[2019-03-07] MEDS: MAGNESIUM OXIDE 400 MG TAB (MAG-OX) PO SCH (09:12)
[2019-03-07] MEDS: NEUTRA-PHOS 1.5 GM PACKET PO SCH (09:12)
[2019-03-07] MEDS: SUCRALFATE 1 GM TAB PO SCH (09:12)
[2019-03-07] MEDS: PANTOPRAZOLE 40MG TAB (PROTONIX) PO SCH (09:12)
[2019-03-07] MEDS: POTASSIUM CHLORIDE 10 MEQ SR TABLET PO SCH (09:12)
[2019-03-07] MEDS: FOLIC ACID 1 MG TAB PO SCH (09:12)
[2019-03-07] MEDS: MULTIVITAMINS/MINERALS THERAP 1 TAB PO SCH (09:12)
[2019-03-07] MEDS ORDERED: OXYC-517 PO (10:27)
[2019-03-07] MEDS ORDERED: MAG400TA PO (10:27)
[2019-03-07] MEDS ORDERED: FOLI1TAB11 PO (10:27)
[2019-03-07] MEDS ORDERED: PANT40TA3 PO (10:27)
[2019-03-07] MEDS ORDERED: GUAI20TA PO (10:27)
[2019-03-07] MEDS ORDERED: SORE15LO PO (10:27)
[2019-03-07] MEDS ORDERED: KLOR10TA76 PO (10:27)
[2019-03-07] MEDS ORDERED: SUCR1TA PO (10:27)
[2019-03-07] MEDS ORDERED: DOCU100C16 PO (10:27)
[2019-03-07] MEDS ORDERED: FLAG500T PO (10:37)
[2019-03-07] MEDS ORDERED: CEFD1CAP8 PO (10:37)
--- NOTE | 2019-03-07 14:21 | DS.PDOC ---
Discharge Summary General Date of Admission Mar 01, 2019 at 01:30 Date of Discharge 03/07/2019 Discharge Summary PROCEDURES PERFORMED DURING STAY: [None]. ADMITTING DIAGNOSES: 1. Alcoholic Hepatitis 2. Acute Pancreatitis 3. Hypokalemia 4. Alcoholism 5. High Anion Gap metabolic Acidosis DISCHARGE DIAGNOSES: 1. Alcoholic Hepatitis 2. Acute gastritis/ duodenitis 3. Mild ileus vs mild colitis 4. Alcohol abuse with alcohol withdrawal 5. High Anion Gap metabolic Acidosis due to alcohol. 6. HCAP 7. Persistent Abdominal Pain with Distention 8. Electrolyte imbalance hypokalemia, hypomagnesemia, hypophosphatemia possibly from refeeding syndrome 9. Acute on chronic Anemia probably from bone marrow suppression , no bleeding. 10. Anemia with Macrocytosis due to alcoholism, no vit b12 or folate deficiency. 11. Nicotine Dependence 12. Thrombocytopenia probably from bone marrow suppresion, improved. COMPLICATIONS/CHIEF COMPLAINT: Etho Abuse,Hypokalemia,Pancreatitis. HISTORY OF PRESENT ILLNESS: "28-year-old alcoholic female presents from home with abdominal pain and vomiting after binge drinking today. She was admitted 1 month ago for alcoholic hepatitis, reportedly did not have any alcohol since then. She started drinking heavily today because she was alone in her apartment on which made her depressed. She is currently experiencing nausea, vomiting and diffuse abdominal pain. She denies any other associated symptoms, denies chest pain, shortness of breath, constipation or diarrhea at this time." HOSPITAL COURSE: Pt admitted 03/01/19 and treated supportively for hepatitis and peritonitis. Electrolytes and vitamin supplementation were started and CIWA protocol initiated. 03/02/19 pt required a blood transfusion as her Hbg fell to 6.6; she eventually agreed to have the transfusion done. Pain control measures were instituted as well as treatment for severe symptoms of alcohol withdrawal. Pantoprazole and sucralfate added due to persistent abdominal pain from gastritis/duodenitis. 03/04/19pt Dx with HCAP via CXR; started on Zosyn, given Lasix x1 dose for dyspnea. 03/05/19 GI consulted due as abdominal pain in the LLQ and hypogastrium persisted. Dr. Guillen recommended watchful waiting due to recent normal CT and X-rays of the abdomen and improvement of the abdominal pain. 03/06/19 pt reported to nursing staff she felt well enough to be discharged home. Overnight she had a BM which relieved the constipation she had been experiencing. She has been eating solid foods for a couple of days now without abdominal pain. Today pt was discharged following a long discussion about the dangers of alcohol, ensuring adherence to all prescribed medications, and close follow-up with PCP (pneumonia) and rehabilitation (alcohol addiction). Pt voiced her understanding. She is hemodynamically, stable, denied any symptoms at this time - in fact her symptoms have resolved today - and is anxiou sto get home to prepare for her returning there also. DISCHARGE MEDICATIONS: Please see below. ALLERGIES: Please see below. PHYSICAL EXAMINATION ON DISCHARGE: VITAL SIGNS: Please see below. General Exam: Positive: Alert, Cooperative, No Acute Distress Eye Exam: Positive: PERRLA, Conjunctiva & lids normal, EOMI; Negative: Sclera icteric ENT Exam: Positive: Atraumatic, Mucous membr. moist/pink, Pharynx Normal Neck Exam: Positive: Supple; Negative: JVD, thyromegaly Chest Exam: Positive: Normal air movement, Diminished (at the left base. ); Negative: Rales, Rhonchi, Wheezing Heart Exam: Positive: Tachycardic, Regular Rhythm, Normal S1, Normal S2; Negative: Murmurs, Rubs Telemetry: Positive: Sinus, Tachycardia Abdomen Exam: Positive: BS Hyperactive, Soft; Negative: Tenderness Extremity Exam: Negative: Clubbing, Cyanosis, Edema Skin Exam: Positive: Nl turgor and temperature, Other skin issue; Negative: Rash, Breakdown Neuro Exam: Positive: Normal Speech, Cranial Nerves 3-12 NL Psych Exam: Positive: Mood NL, Other LABORATORY DATA: Please see below. IMAGIN02/28/19 CT abd/pelvis w/contrast Impression: "1. There has been little change from 01/16/2019. No acute interval process is identified. 2. Hepatomegaly with fatty infiltration. 3. Otherwise negative CT abdomen/pelvis. Peripancreatic fat is within normal limits." 03/04/19 CXR Impression: "Left lower lobe pneumonia with effusion." 03/04/19 KUB Impression: "Nonspecific bowel gas pattern. Hepatomegaly." ACTIVITY: [As tolerated]. DIET:As tolerated. Avoid all alcohol. DISCHARGE PLAN: DISPOSITION: 01 Home, Self-Care. DISCHARGE INSTRUCTIONS: Discharge home with Augmentin and Flagyl, electrolyte and vitamin replacements, prn pain medication x 3 days. PCP follow-up RE: Pneumonia treatment and [place]. [place] their services NICOLE. ITEMS TO FOLLOWUP ON ON OUTPATIENT: see above DISCHARGE CONDITION: [Stable]. TIME SPENT ON DISCHARGE: 34 minutes Vital Signs/I&Os Vital Signs Date Time Temp Pulse Resp B/P (MAP) Pulse Ox O2 Delivery O2 Flow Rate FiO2 03/07/19 09:19 20 03/07/19 09:06 Room Air 03/07/19 06:00 90 104/73 03/07/19 06:00 98.3 93 03/05/19 04:00 2.0 I&O- Last 24 Hours up to 6 AM 03/07/19 06:00 Intake Total 1070 ml Output Total 250 ml Balance 820 ml Laboratory Data Labs 24H Laboratory Tests 2 03/07/19 05:41: Nucleated Red Blood Cells % (auto) 0.4H, Anion Gap 10, Glomerular Filtration Rate > 60.0, Calcium Level 8.1L, Total Bilirubin 4.6H, Aspartate Amino Transf (AST/SGOT) 140H, Alanine Aminotransferase (ALT/SGPT) 35, Alkaline Phosphatase 306H, Total Protein 5.2L, Albumin 1.8L, Albumin/Globulin Ratio 0.53L CBC/BMP Laboratory Tests 03/07/19 05:41 Discharge Medications Scheduled Cefdinir (Cefdinir) 300 Mg Capsule, 300 MG PO BID Folic Acid (Folic Acid) 1 Mg Tablet, 1 MG PO DAILY Magnesium Oxide (Magnesium Oxide) 400 Mg Tablet, 400 MG PO BID Metronidazole (Flagyl) 500 Mg Tablet, 1 TAB PO Q8H Multivitamins (Thera M Plus Tablet) 1 Each Tablet, 1 TAB PO DAILY, (Reported) Pantoprazole Sodium (Pantoprazole Sodium) 40 Mg Tablet.dr, 40 MG PO BID Potassium Chloride (Klor-Con M10) 10 Meq Tab.er.prt, 40 MEQ PO BID Sucralfate (Sucralfate) 1 Gm Tablet, 1 GM PO QID Scheduled PRN Benzocaine/Menthol (Sore Throat Lozenge) 1 Each Lozenge, 1 KASIA PO Q2HP PRN for COUGH Docusate Sodium (Docusate Sodium) 100 Mg Capsule, 100 MG PO DAILYPRN PRN for C ONSTIPATION Guaifenesin (Guaifenesin) 200 Mg Tablet, 400 MG PO Q4HP PRN for COUGH Oxycodone HCl (Oxycodone HCl) 5 Mg Tablet, 5 MG PO TID PRN for PAIN OR DISCO MFORT Allergies Coded Allergies: No Known Allergies (Unverified , 12/24/18) ADRIANA RAI PA-C Mar 07, 2019 14:21 FANTA MAHER MD Mar 08, 2019 11:59
== END 2019-03-07 12:20 | disposition home or self-care (01) | DRG 432 ==
LOC: M ED 20:00 → M ED INP 03-01 01:30 → M PCU 03-01 03:07 → M MSPAV 03-05 15:55
PROVIDERS: ADMIT Internal Medicine; ATTEND Internal Medicine Nephrology
DX: K70.10 Alcoholic hepatitis without ascites (principal); J18.9 Pneumonia, unspecified organism; K85.90 Acute pancreatitis without necrosis or infection, unspecified; K65.0 Generalized (acute) peritonitis; K56.7 Ileus, unspecified; F10.230 Alcohol dependence with withdrawal, uncomplicated; E87.2 Acidosis; D62 Acute posthemorrhagic anemia; K29.20 Alcoholic gastritis without bleeding; K52.9 Noninfective gastroenteritis and colitis, unspecified; E87.8 Other disorders of electrolyte and fluid balance, not elsewhere classified; D75.89 Other specified diseases of blood and blood-forming organs; F17.210 Nicotine dependence, cigarettes, uncomplicated; D69.6 Thrombocytopenia, unspecified; Z79.899 Other long term (current) drug therapy; D53.9 Nutritional anemia, unspecified

== ENCOUNTER 2019-03-10 22:53 | Emergency (ER) | payer OTHER ==
[~2019-03-10] VITALS: Ht 162.6 cm; Wt 55.9 kg
[~2019-03-10 22:53] MED LIST changes: +CEFD1CAP8 PO; +DOCU100C16 PO; +FLAG500T PO; +GUAI20TA PO; +KLOR10TA76 PO; +OXYC-517 PO; +SORE15LO PO; +SUCR1TA PO
[2019-03-10 23:58] LABS: HCG, SERUM QUALITATIVE NEGATIVE (NEGATIVE)
[2019-03-11 00:09] LABS: BASO # 0.2 10^3/uL (0.0-0.2); BASO % 0.9 % (0.0-1.0); EOS # 0.1 10^3/uL (0.0-0.5); EOS % 0.6 % (0.0-3.0); HEMATOCRIT 36.3 % (36.0-47.0); HEMOGLOBIN 11.8 g/dl (12.0-15.5); LYMPH # 2.3 10^3/uL (1.5-5.0); LYMPH % 9.9 % (24.0-44.0); MEAN CORPUSCULAR HEMOGLOBIN 32.4 pg (27.0-33.0); MEAN CORPUSCULAR HGB CONC 32.5 g/dl (32.0-36.5); MEAN CORPUSCULAR VOLUME 99.7 fl (80.0-96.0); MONO # 1.3 10^3/uL (0.0-0.8); MONO % 5.8 % (0.0-5.0); NEUTROPHILS % 81.5 % (36.0-66.0); PLATELET COUNT, AUTOMATED 482 10^3/uL (150-450); RED BLOOD COUNT 3.64 10^6/uL (4.00-5.40); WHITE BLOOD COUNT 23.2 10^3/uL (4.0-10.0)
[2019-03-11 00:11] LABS: ALT/SGPT 36 U/L (12-78); BILIRUBIN,DIRECT 3.6 MG/DL (0.0-0.2); BILIRUBIN,TOTAL 4.4 MG/DL (0.2-1.0); BLOOD UREA NITROGEN 2 MG/DL (7-18); CALCIUM LEVEL 8.1 MG/DL (8.5-10.1); CARBON DIOXIDE LEVEL 21 MEQ/L (21-32); CHLORIDE LEVEL 103 MEQ/L (98-107); CREATININE FOR GFR 0.46 MG/DL (0.55-1.30); ETHYL ALCOHOL (ETHANOL) < 0.003 % (0.000-0.010); GLOMERULAR FILTRATION RATE > 60.0 (>60); GLUCOSE, FASTING 103 MG/DL (70-100); LIPASE 124 U/L (73-393); POTASSIUM SERUM 3.5 MEQ/L (3.5-5.1); SODIUM LEVEL 137 MEQ/L (136-145); TOTAL PROTEIN 5.9 GM/DL (6.4-8.2)
[2019-03-11] MEDS ORDERED: ISOVUE-370 76% 100ML VIAL (Q9967) As Ordered ONE (01:07)
[2019-03-11] MEDS ORDERED: MORPHINE 4 MG/ML 1ML VIAL/SYRINGE (J2270) IV ONE ×2 (01:15→04:30)
[2019-03-11] MEDS ORDERED: PIPERACILLIN/TAZOBACTAM SOD 3.375 GM in D5W MINI-BAG PLUS 50 ML IV ONE (01:30)
[2019-03-11] MEDS ORDERED: ONDANSETRON 4MG/2ML VIAL (J2405) As Ordered ONE (01:32)
[2019-03-11] MEDS ORDERED: ONDANSETRON 4MG/2ML VIAL (J2405) IV ONE (01:45)
--- NOTE | 2019-03-11 02:15 | REPVR ---
PROCEDURE INFORMATION: Exam: CT Abdomen And Pelvis With Contrast Exam date and time: 03/11/2019 1:20 AM Age: 28 years old Clinical indication: Abdominal pain; Generalized TECHNIQUE: Imaging protocol: Computed tomography of the abdomen and pelvis with intravenous contrast. Radiation optimization: All CT scans at this facility use at least one of these dose optimization techniques: automated exposure control; mA and/or kV adjustment per patient size (includes targeted exams where dose is matched to clinical indication); or iterative reconstruction. Contrast material: ISOVUE 370; Contrast volume: 100 ml; Contrast route: IV; COMPARISON: CT ABD/PEL W/IV CONTRAST ONLY 02/28/2019 10:30 PM FINDINGS: Lungs: Moderate left lower lobe and mild right lower lobe and lingular atelectasis. Pleural space: Mild bilateral pleural effusions, left greater than right. Liver: The liver attenuation is 73 Hounsfield units and the spleen is 95 Hounsfield units. The liver at mid clavicular line measures 21.0 cm. Gallbladder and bile ducts: There is slight gallbladder wall thickening with pericholecystic fluid and induration and ill-defined decreased attenuation of the liver adjacent to the gallbladder fossa which may reflect fat. Pancreas: Peripancreatic fluid with some accentuation of the anterior pararenal fascia and lateral conal fascia. The peripancreatic fluid is greatest posteriorly which is retroperitoneal and extends around the duodenum. Spleen: Normal. No splenomegaly. Adrenals: Normal. No mass. Kidneys and ureters: Minimal nonobstructing left renal calculus. Stomach and bowel: Much of the colon is contracted with question of minimal diffuse colonic wall thickening. Appendix: There are no changes of appendicitis. A normal appendix is not seen. Intraperitoneal space: Moderate peritoneal ascites with Hounsfield measurement of 1 in the pelvis. Vasculature: Downward hook of the celiac artery with proximal stenosis and poststenotic dilatation which may reflect a median arcuate ligament. Lymph nodes: Unremarkable. No enlarged lymph nodes. Bladder: Unremarkable as visualized. Reproductive: Unremarkable as visualized. Bones/joints: Unremarkable. No acute fracture. Soft tissues: Unremarkable. IMPRESSION: 1. Mild bilateral pleural effusions which are new since 02/28/2019 with moderate secondary left lower lobe and mild right lower lobe and lingular atelectasis. 2. New moderate peritoneal ascites since the prior study which may reflect generalized anasarca although may be related to pancreatitis. 3. Peripancreatic and retroperitoneal fluid suggesting interval pancreatitis since the prior study. 4. Pericholecystic fluid and induration and question of slight wall thickening which may reflect extension from adjacent pancreatitis. Cholecystitis is not excluded. 5. Persistent hepatomegaly. 6. Punctate nonobstructing left renal calculus. 7. Question of minimal nonspecific pancolitis which may be similar to the prior study. Electronically signed by: Kwabena Broderick On 03/11/2019 02:14:47 AM
[2019-03-11 04:45] VITALS: BP 103/64
== END 2019-03-11 05:00 | disposition short-term general hospital (02) ==
LOC: M ED 22:53
DX: K70.11 Alcoholic hepatitis with ascites (principal); F10.10 Alcohol abuse, uncomplicated; D64.9 Anemia, unspecified; D69.6 Thrombocytopenia, unspecified; Z79.899 Other long term (current) drug therapy
CPT/HCPCS: 36415; 74177; 80048; 80076; 83690; 84703; 85025; 87040; 96374; 96375; 96376; 99285; G0480; J2270; J2405; J2543; Q9967

== ENCOUNTER 2019-04-14 15:13 | Inpatient (IN) | payer OTHER ==
[~2019-04-14] VITALS: Ht 162.6 cm; Wt 58.2 kg
[2019-04-14] MEDS ORDERED: ONDANSETRON 4MG/2ML VIAL (J2405) IV ONE (16:30)
[2019-04-14] MEDS ORDERED: MORPHINE 4 MG/ML 1ML VIAL/SYRINGE (J2270) IV ONE ×2 (16:30→18:45)
--- NOTE | 2019-04-14 16:34 | REP ---
Clinical: Abdominal pain. Technique: PA and lateral. Findings: Small/moderate left pleural effusion and left lower lobe atelectasis. Mediastinum and cardiac silhouette normal. No pneumothorax. Skeletal structures intact. Impression: Small/moderate left pleural effusions and left lower lobe atelectasis. Electronically Signed by Demetrio Ramirez MD 04/14/2019 04:25 P
[2019-04-14 17:12] LABS: BASO # 0.2 10^3/uL (0.0-0.2); BASO % 0.6 % (0.0-1.0); EOS # 0.4 10^3/uL (0.0-0.5); EOS % 1.2 % (0.0-3.0); HEMATOCRIT 31.7 % (36.0-47.0); HEMOGLOBIN 10.1 g/dl (12.0-15.5); LYMPH # 3.2 10^3/uL (1.5-5.0); LYMPH % 10.8 % (24.0-44.0); MEAN CORPUSCULAR HGB CONC 31.9 g/dl (32.0-36.5); MEAN CORPUSCULAR VOLUME 100.3 fl (80.0-96.0); MONO # 1.8 10^3/uL (0.0-0.8); MONO % 5.9 % (0.0-5.0); NEUTROPHILS # 24.2 10^3/uL (1.5-8.5); NEUTROPHILS % 80.7 % (36.0-66.0); PLATELET COUNT, AUTOMATED 398 10^3/uL (150-450); RED BLOOD COUNT 3.16 10^6/uL (4.00-5.40)
[2019-04-14 17:22] LABS: INR 1.61; PROTHROMBIN TIME 18.9 SECONDS (11.8-14.0)
[2019-04-14 17:39] LABS: ALBUMIN 1.9 GM/DL (3.2-5.2); ALT/SGPT 42 U/L (12-78); BILIRUBIN,DIRECT 2.5 MG/DL (0.0-0.2); BILIRUBIN,TOTAL 3.7 MG/DL (0.2-1.0); BLOOD UREA NITROGEN 3 MG/DL (7-18); CALCIUM LEVEL 8.1 MG/DL (8.5-10.1); CARBON DIOXIDE LEVEL 22 MEQ/L (21-32); CHLORIDE LEVEL 107 MEQ/L (98-107); CK-MB VALUE MASS < 1.0 NG/ML (<3.6); CPK CREATINE PHOSPHOKINASE 49 U/L (26-192); GLOMERULAR FILTRATION RATE > 60.0 (>60); GLUCOSE, FASTING 99 MG/DL (70-100); LIPASE 750 U/L (73-393); MB/CK RELATIVE INDEX 2.04 (< OR =4); POTASSIUM SERUM 3.6 MEQ/L (3.5-5.1); SODIUM LEVEL 139 MEQ/L (136-145); TROPONIN I < 0.02 NG/ML (< 0.10)
[2019-04-14 17:43] LABS: INFLUENZA A AMPLIFICATION NEGATIVE (NEGATIVE); INFLUENZA B AMPLIFICATION NEGATIVE (NEGATIVE)
[2019-04-14] MEDS ORDERED: NS 1,500 ML in IV 1 EA IV ONE (17:45)
[2019-04-14 17:53] LABS: HCG, SERUM QUALITATIVE NEGATIVE (NEGATIVE)
[2019-04-14] MEDS ORDERED: ISOVUE-370 76% 100ML VIAL (Q9967) As Ordered ONE (18:08)
[2019-04-14] MEDS ORDERED: PIPERACILLIN/TAZOBACTAM SOD 4.5 GM in D5W MINI-BAG PLUS 50 ML IV ONE (18:30)
[2019-04-14] MEDS ORDERED: LORazepam 2 MG/ML VIAL (J2060) IV STA ×2 (18:43→20:32)
--- NOTE | 2019-04-14 19:25 | ECGEPIP ---
[facility] - ED Test Date: 2019-04-14 Pat Name: AVIVA MAIER Department: Room: - Gender: Female [employer] Analyst: : 1990 Requested By: SARAHI Marr PA-C Order Number: [id number] Reading MD: Felix Moreno Measurements Intervals [place] Rate: 90 P: -10 SD: 158 QRS: -7 QRSD: 74 T: 25 QT: 358 QTc: 438 Interpretive Statements SINUS RHYTHM INFERIOR MYOCARDIAL INFARCTION, PROBABLY OLD LOW QRS VOLTAGE LIMB LEADS NONSPECIFIC ST T WAVE CHANGES CW 01/16/[address] T WAVE CHANGES Electronically Signed on 04-14-2019 19:25:14 EST by Felix Moreno
[2019-04-14] MEDS ORDERED: ATROPINE SULF 1MG/10ML SYRINGE (J0461) XX STA (20:07)
[2019-04-14] MEDS ORDERED: KETAMINE HCL 200 MG/20 ML VIAL IV ONE (20:15)
[2019-04-14] MEDS ORDERED: METOCLOPRAMIDE INJ 10MG/2ML VIAL (J2765) IV ONE (20:45)
--- NOTE | 2019-04-14 21:45 | REPVR ---
PROCEDURE INFORMATION: Exam: CT Angiography Chest With Contrast Exam date and time: 04/14/2019 9:18 PM Age: 28 years old Clinical indication: Other: Sepsis; Additional info: Sepsis, effusion TECHNIQUE: Imaging protocol: Computed tomographic angiography of the chest with intravenous contrast. 3D rendering: MIP and/or 3D reconstructed images were created by the technologist. Radiation optimization: All CT scans at this facility use at least one of these dose optimization techniques: automated exposure control; mA and/or kV adjustment per patient size (includes targeted exams where dose is matched to clinical indication); or iterative reconstruction. Contrast material: ISOVUE 370; Contrast volume: 100 ml; Contrast route: IV; COMPARISON: No relevant prior studies available. FINDINGS: Pulmonary arteries: The main pulmonary artery measures 24 mm. No pulmonary embolism is identified. Aorta: The ascending thoracic aorta measures 26 mm. Lungs: Bilateral lower lobe atelectasis or consolidation, left greater than right. There is slight pulmonary interstitial coarsening with areas of infiltrate in the aerated lung, greatest in the lower lobes and anterior left upper lobe. Pleural space: Mild left and minimal right pleural effusions. Heart: Unremarkable. No cardiomegaly. No pericardial effusion. Intraperitoneal space: Trace perihepatic fluid. Lymph nodes: Unremarkable. No enlarged lymph nodes. Bones/joints: Unremarkable. No acute fracture. Soft tissues: Unremarkable. IMPRESSION: 1. Mild left and minimal right pleural effusions with bilateral lower lobe atelectasis or consolidation, left greater than right. There is slight scattered interstitial coarsening and minimal patchy bilateral pulmonary infiltrates, greatest in the lower lobes and anterior left upper lobe. 2. Trace perihepatic fluid. 3. No pulmonary embolism is identified. Electronically signed by: Kwabena Broderick On 04/14/2019 21:44:13 PM
--- NOTE | 2019-04-14 21:55 | REPVR ---
PROCEDURE INFORMATION: Exam: CT Abdomen And Pelvis With Contrast Exam date and time: 04/14/2019 9:18 PM Age: 28 years old Clinical indication: Pain; Other: Diffuse; Additional info: Diffuse abd pain TECHNIQUE: Imaging protocol: Computed tomography of the abdomen and pelvis with intravenous contrast. Radiation optimization: All CT scans at this facility use at least one of these dose optimization techniques: automated exposure control; mA and/or kV adjustment per patient size (includes targeted exams where dose is matched to clinical indication); or iterative reconstruction. Contrast material: ISOVUE 370; Contrast volume: 100 ml; Contrast route: IV; COMPARISON: CT ABD/PEL W/IV CONTRAST ONLY 03/11/2019 1:17 AM FINDINGS: Lungs: Bilateral lower lobe atelectasis or consolidation and question of minimal infiltrates. Pleural space: Mild left and minimal right pleural effusions. Liver: The liver at mid clavicular line measures 18.4 cm. Gallbladder and bile ducts: No gallstones, however, there is trace pericholecystic fluid or wall edema along the liver interface. Pancreas: Normal. No ductal dilation. Spleen: The spleen measures 13.0 cm. Adrenals: Normal. No mass. Kidneys and ureters: Minimal nonobstructing left renal calculus. There is a left renal cyst measuring up to 7 mm. Stomach and bowel: Borderline to mild small-bowel distention with air-fluid levels, greatest proximally. Slight diffuse colonic wall thickening. Appendix: Partial visualization of a normal appendix. Intraperitoneal space: Trace perihepatic fluid and mild peritoneal ascites in the pelvis with a Hounsfield measurement of 2. Retroperitoneal space: Generalized edema of the retroperitoneum, peritoneum and subcutaneous fat. Vasculature: Unremarkable. No abdominal aortic aneurysm. Lymph nodes: Unremarkable. No enlarged lymph nodes. Bladder: Unremarkable as visualized. Reproductive: Unremarkable as visualized. Bones/joints: Unremarkable. No acute fracture. Soft tissues: Unremarkable. IMPRESSION: 1. Bilateral pleural effusions, mild peritoneal ascites with generalized edema of the retroperitoneum, mesentery in subcutaneous tissues which may reflect generalized anasarca. 2. Mild bilateral lower lobe atelectasis or consolidation and question of minimal infiltrates. 3. Trace pericholecystic fluid or wall edema along the liver interface with slight wall thickening which may reflect generalized edema. Cholecystitis is not excluded, however, no gallstones are noted. 4. Borderline splenomegaly and mild hepatomegaly. 5. Borderline to mild small-bowel distention with air-fluid levels which may reflect generalized ileus. Enteritis or low-grade obstruction are not excluded but similar to 03/11/2019. There is slight colonic wall thickening and minimal nonspecific there pancolitis is not excluded. 6. Minimal nonobstructing left renal calculus. Electronically signed by: Kwabena Broderick On 04/14/2019 21:55:01 PM
[2019-04-14] MEDS ORDERED: NS 1,000 ML IV SCH (22:54)
[2019-04-14] MEDS ORDERED: SUCR1TAB56 PO (23:01)
[2019-04-14] MEDS ORDERED: PANT40TA3 PO (23:01)
[2019-04-14] MEDS ORDERED: FOLI1TAB11 PO (23:01)
[2019-04-14] MEDS ORDERED: MAGN400T3 PO (23:01)
[2019-04-14] MEDS ORDERED: TRAM50TA2 PO (23:01)
[2019-04-14] MEDS ORDERED: ALPR0.25 PO (23:01)
--- NOTE | 2019-04-14 23:10 | IPNPDOC ---
Text Note Date of Service The patient was seen on 04/14/19. NOTE Time of service 11:50 PM This is a 28 old yr old female with a history of alcoholic hepatitis, history of pancreatitis, ascites, and biliary dyskinesia who presents with complaints of nausea, fever, chills, and chronic abdominal pain. 1. Sepsis. Possibly due to pneumonia, can't rule out SBP. Plan: Admit to medical floor/IV fluids/antibiotics / trend lactic acid / monitor urine output / keep map above 65 / target serum glucose 140-180 while acutely ill 2. Pneumonia Plan: continuous pulse ox & supplemental O2/ f/u sputum, strep pneumonia, MRSA, & blood cx /abx / Acetaminophen PRN for fever 3. Alcoholic liver cirrhosis with ascites Her Maddrey's score is 26.2. Therefore, she does need steroids Plan: GI consult /prophylactic abx/ NPO pending Radiology consult for diagnostic paracentesis in the morning 4. Biliary Dyskinesia The patient reports that she has had the same abdominal pain for 3 months that is sometimes made worse by eating and it didn't resolve despite being treated for PNA & receiving paracentesis at [facility] therefore the chronic abd p ain may be due to a biliary process Plan: General surgery consult once she completes tx for PNA and has a diagnostic para Respiratory Dr. Ho's H&P VS,Toribio, I+O VS, Toribio, I+O Laboratory Tests 04/14/19 16:11 Vital Signs Date Time Temp Pulse Resp B/P (MAP) Pulse Ox O2 Delivery O2 Flow Rate FiO2 04/14/19 23:01 98.9 91 18 112/75 (87) 95 Room Air 04/14/19 20:56 2.0 JOY MCKEON MD Apr 14, 2019 23:09
--- NOTE | 2019-04-14 23:21 | HPEPDOC ---
[facility] Medical History & Physical Date of Admission Apr 14, 2019 Date of Service: Apr 14, 2019 Attending Physician: JOY MCKEON MD History and Physical CHIEF COMPLAINT: Abdominal Pain HISTORY OF PRESENT ILLNESS: Ana Laura is a 28-year-old female with history of alcoholic hepatitis, pancreatitis with ascites, biliary dyskinesia, and alcoholism, who presented to the ED with the chief complaint of severe abdominal pain. Patient has had consistent abdominal pain for the past couple months, but it became more severe beginning , 04/12. The pain is most pronounced in left lower quadrant, radiating to her back, and periumbilical region. She currently rates the pain at 78/10. She has accompanying nausea with no vomiting. In addition, she has accompanying general fatigue and night sweats. She reports morphine, tramadol and Xanax seemed to help with her pain and overall discomfort. PO intake of any kind exacerbates her symptoms. The symptoms are similar to what she's been dealing with over the past couple months. She has had multiple presentations to [facility] and at one point in March was transferred to [facility] in [place] where she was worked up for 26 days (). During the admission to [facility], studies showed gallbladder ejection fraction of 20% (biliary dyskinesia), sequela of liver cirrhosis, peripancreatic inflammation, anasarca, volume ascites, diffuse gallbladder wall thickening, and left upper lobe patchy infiltrates. Patient underwent a paracentesis on 03/26 that was unremarkable for SBP. On presentation to ED today, patient was tachycardiac with leukocytosis, macrocytic anemia, elevated AST, elevated coags, hyperbilirubinemia, decreased albumin. Imaging studies (chest x-ray, CTA, CT abdomen and pelvis) (revealed bilateral pleural effusions, bilateral consolidations versus atelectasis, retroperitoneal edema, mild peritoneal ascites, gallbladder wall edema, pericholecystic fluid, and mid small bowel ileus. The emergency department contacted the on-call diabetes clinical manager (Dr. Bass) who will be seeing the patient on Tuesday. Patient was given a 1500 mL bolus and started on Zosyn. Patient was subsequently admitted under the care of the hospitalist team for sepsis and GI workup. PAST MEDICAL HISTORY: Alcoholic hepatitis Pancreatitis with ascites Biliary dyskinesia Alcohol abuse PAST SURGICAL HISTORY: [place] teeth extraction SOCIAL HISTORY: . is . No children. Has a dog and cat. She is an only child. History of EtOH abuse- drinks about 1L liquor per day and has done so for the past 5-6 years. She reports her last day of drinking was [place] (02/28/19) and has not had any since due to her persistent symptoms/medical issues. Reports smoking 2-3 cigarettes per week for the past 12 years. She denies any current or former use of illegal drugs. She has multiple tattoos and reports all were done professionally. FAMILY HISTORY: Mother: h/o Brain Aneurysm ALLERGIES: Please see below. REVIEW OF SYSTEMS: CONSTITUTIONAL: Endorses fever this morning, recent night sweats, and general fatigue HEENT: Endorses dry mouth and occasional left ear discharge; Denies visual disturbances or auditory CARDIOVASCULAR: Endorses substernal and left pectoral area chest pain (10); Denies chest pressure or palpitations RESPIRATORY: Denies feeling short of breath, cough, or increased work of breathing GASTROINTESTINAL: Endorses severe diffuse abdominal pain, most pronounced periumbilical and LLQ (7-8), Endorses nausea, Endorses general pain with defecation; Denies emesis, constipation, or diarrhea. GENITOURINARY: Denies dysuria or hematuria; Admits to no menses in 5 years using Nexplanon contraceptive, she denies breakthrough bleeding or vaginal bleeding of any kind NEUROLOGICAL: Endorses recent lack of focus and mild headache HEMATOLOGIC/LYMPHATIC: Endorses recent epistaxis and chronic easy bruising HOME MEDICATIONS: Please see below. PHYSICAL EXAMINATION: VITAL SIGNS: Temperature 99.1 (oral), pulse 142, respiratory rate 20, blood pressure 136/97, pulse oximetry 95% on room air. GENERAL APPEARANCE: Young female who appears to be in moderate discomfort while lying in bed. Alert and oriented 3. No apparent acute distress. She has multiple piercings (nose, lip, tongue, umbilicus) and tattoos (bilateral forearms, right lower abdominal quadrant). HEENT: Normocephalic, atraumatic. Scleral icterus. No conjunctival pallor. PERRLA. Fall, rounded cheeks. No pharyngeal erythema or exudate. Mucous m embranes pink and moist. No cervical or supraclavicular lymphadenopathy appreciated. Trachea is midline. CARDIOVASCULAR: Tachycardic rate, regular rhythm. S1, S2 auscultated. No murmurs or rubs appreciated. LUNGS: Diminished tidal volume with crackles in the right lung base and coarse breath sounds on the left lung base. Symmetric chest expansion. Breathing on room air. Speaking in full sentences. ABDOMEN: Diffuse exquisite abdominal tenderness most pronounced in the periumbilical region with localized guarding. No rigidity appreciated. Soft, nondistended. Normoactive bowel sounds. Positive Ngo sign. Left CVA tenderness. EXTREMITIES: 2+ radial and posterior tibial pulses bilaterally. No lower extremity edema. Hands and feet are cool to touch.. NEUROLOGICAL: Awake, alert and oriented 3. No focal neurological deficits appreciated. PSYCHIATRIC: Affect is appropriate. Mood appears somewhat down.. LABORATORY DATA: Please see below. IMAGING: Two-view Chest Xray, 04/14/19: Small/moderate left pleural effusions and left lower lobe atelectasis CT chest angiography with contrast, 04/14/19: 1. Mild left and minimal right pleural effusions with bilateral lower lobe atelectasis or consolidation, left greater than right. There is slight scattered interstitial coarsening and minimal patchy bilateral pulmonary infiltrates, greatest in the lower lobes and anterior left upper lobe. 2. Trace perihepatic fluid. 3. No pulmonary embolism is identified. CT Abdomen and Pelvis with contrast, 04/14/19: 1. Bilateral pleural effusions, mild peritoneal ascites with generalized edema of the retroperitoneum, mesentery in subcutaneous tissues which may reflect generalized anasarca. 2. Mild bilateral lower lobe atelectasis or consolidation and question of minimal infiltrates. 3. Trace pericholecystic fluid or wall edema along the liver interface with slight wall thickening which may reflect generalized edema. Cholecystitis is not excluded, however, no gallstones are noted. 4. Borderline splenomegaly and mild hepatomegaly. 5. Borderline to mild small-bowel distention with air-fluid levels which may reflect generalized ileus. Enteritis or low-grade obstruction are not excluded but similar to 03/11/2019. There is slight colonic wall thickening and minimal nonspecific there pancolitis is not excluded. 6. Minimal nonobstructing left renal calculus. MICROBIOLOGY: Please see below. ASSESSMENT & PLAN: This is a 28yo female with history of alcohol abuse and alcoholic hepatitis, pancreatitis w/ ascites, and biliary dyskinesia who presented to the ED w/ severe abdominal pain and was found to have bilateral pleural effusions and lower lobe consolidations, small bowel ileus, peritoneal ascites and was admitted primarily for sepsis and GI workup. #Sepsis likely this secondary to infectious GI source -(On presentation), HR 142, WBC 30 + imaging shows small bowel ileus, g allbladder wall edema, pericholecystic fluid collection, mild peritoneal ascites with retroperitoneal edema -Received 1500 mL bolus in the ED and started on Zosyn -Zosyn continue on the floor and IV fluids are running -Initial lactate 2.8 with 4 hour follow-up of 1.2 -2 blood cultures pending -qSOFA score of 0.7 indicating not high risk for poor outcome #Alcoholic liver cirrhosis complicated by likely chronic pleural effusions, ascites, and gallbladder wall edema -Significant findings on multiple imaging studies upon presentation-bilateral pleural effusions with bilateral lung consolidations more likely secondary to patient's liver failure versus pneumonia -Currently on Zosyn with IV fluids -Patient is NPO for possible paracentesis today -O2 saturations have been stable on room air. With respect to the bilateral pleural effusions and consolidations -Sputum culture and Gram stain have been ordered -Gastroenterology (Dr. Bass) has been consulted -Ultrasound-guided paracentesis has been ordered through radiology to rule out possible SBP -Monitor strict I&O #Electrolyte imbalance -Likely secondary to patient's alcoholic liver cirrhosis -Magnesium and potassium replaced -Repeat CMP ordered #Macrocytic Anemia -Likely secondary to patient's alcoholic liver cirrhosis -Repeat CBC ordered #Hyperbilirubinemia -Likely secondary to patient's alcoholic liver cirrhosis and associated complications (ascites, retroperitoneal edema, gallbladder wall edema) -Repeat CMP ordered #History of alcoholic hepatitis -Maddrey's Discriminant Function Score of 26; this evaluates patient's alcoholic hepatitis prognosis and need for steroid treatment. Due to this, calculated score, patient is not in need of steroid treatment at this time. -Patient has a history of drinking 1 L of liquor on a daily basis for the past 5-6 years. She reports her last drink was on [place] as she has been not feeling well and in and out of hospitals since that time. #History of pancreatitis -Lipase 750, which was not 3 times elevation over upper limit of normal -Received 1500 mL bolus in the ED and is now on IV fluids #DVT prophylaxis: Teds and sequentials ordered Vital Signs Vital Signs Date Time Temp Pulse Resp B/P (MAP) Pulse Ox O2 Delivery O2 Flow Rate FiO2 04/14/19 23:01 98.9 91 18 112/75 (87) 95 Room Air 04/14/19 20:56 2.0 Laboratory Data Labs 24H Laboratory Tests 2 04/14/19 16:11: Immature Granulocyte % (Auto) 0.8, Neutrophils (%) (Auto) 80.7H, Lymphocytes (%) (Auto) 10.8L, Monocytes (%) (Auto) 5.9H, Eosinophils (%) (Auto) 1.2, Basophils (%) (Auto) 0.6, Neutrophils # (Auto) 24.2H, Lymphocytes # (Auto) 3.2, Monocytes # (Auto) 1.8H, Eosinophils # (Auto) 0.4, Basophils # (Auto) 0.2, Nucleated Red Blood Cells % (auto) 0.0, Prothrombin Time 18.9H, Prothromb Time International Ratio 1.61, Activated Partial Thromboplast Time 45.0H, Anion Gap 10, Glomerular Filtration Rate > 60.0, Lactic Acid Level 2.8*H, Calcium Level 8.1L, Total Bilirubin 3.7H, Direct Bilirubin 2.5H, Aspartate Amino Transf (AST/SGOT) 217H, Alanine Aminotransferase (ALT/SGPT) 42, Alkaline Phosphatase 442H, Total Creatine Kinase 49, Creatine Kinase MB < 1.0, Creatine Kinase MB Relative Index 2.04, Troponin I < 0.02, Total Protein 7.0, Albumin 1.9L, Albumin/Globulin Ratio 0.37L, Lipase 750H, Human Chorionic Gonadotropin, Qual NEGATIVE 04/14/19 16:15: Ammonia < 10 04/14/19 16:23: Urine Color [place], Urine Appearance CLEAR, Urine pH 7.0, Urine Specific [place] 1.011, Urine Protein NEGATIVE, Urine Glucose (UA) NEGATIVE, Urine Ketones NEGATIVE, Urine Blood NEGATIVE, Urine Nitrite NEGATIVE, Urine Bilirubin NEGATIVE, Urine Urobilinogen 2.0H, Urine Leukocyte Esterase NEGATIVE, Urine WBC (Auto) 1, Urine RBC (Auto) 3, Urine Hyaline Casts (Auto) 0, Urine Bacteria (Auto) NEGATIVE, Urine Squamous Epithelial Cells 0, Urine Sperm (Auto) 04/14/19 16:57: Influenza Type A (RT-PCR) NEGATIVE, Influenza Type B (RT-PCR) NEGATIVE 04/14/19 22:06: Lactic Acid Followup at 4 Hours 1.2 CBC/BMP Laboratory Tests 04/14/19 16:11 Microbiology Microbiology 04/14/19 Blood Culture, Received Pending 04/14/19 Blood Culture, Received Pending Home Medications Scheduled Folic Acid (Folic Acid) 1 Mg Tablet, 1 MG PO DAILY Magnesium Oxide (Magnesium Oxide) 400 Mg Tablet, 400 MG PO DAILY Multivitamins (Thera M Plus Tablet) 1 Each Tablet, 1 TAB PO DAILY Pantoprazole Sodium (Pantoprazole Sodium) 40 Mg Tablet.dr, 40 MG PO BID Sucralfate (Sucralfate) 1 Gm Tablet, 1 GM PO QID Scheduled PRN Alprazolam (Alprazolam) 0.25 Mg Tablet, 0.25 MG PO TID PRN for ANXIETY Tramadol HCl (Tramadol HCl) 50 Mg Tablet, 50 MG PO Q6H PRN for PAIN Allergies Coded Allergies: No Known Allergies (Unverified , 12/24/18) A-FIB/CHADSVASC A-FIB History Current/History of A-Fib/PAF?: No Current PO Anticoag Therapy: No GME ATTESTATION GME ATTESTATION My faculty preceptor for this patient encounter was physically present during the encounter and was fully available. All aspects of the patient interview, examination, medical decision making process, and medical care plan development were reviewed and approved by the faculty preceptor. The faculty preceptor is aware and concurs with the plan as stated in the body of this note and will attest to such by his/her cosignature. ATTENDING NOTE Pls see my addendum/progress note. DANNI HILARIO D.O. Apr 14, 2019 23:20 JOY MCKEON MD Apr 15, 2019 06:44
[2019-04-15 00:45] VITALS: BP 106/67
[2019-04-15] MEDS: MORPHINE 2 MG/ML 1ML VIAL (J2270) IV PRN ×3 (02:04→20:30)
[2019-04-15 04:00] VITALS: BP 97/56
[2019-04-15] MEDS: PIPERACILLIN/TAZOBACTAM SOD 4.5 GM in D5W MINI-BAG PLUS 50 ML IV SCH ×4 (04:28→23:50)
[2019-04-15 04:36] LABS: MEAN CORPUSCULAR HEMOGLOBIN 32.4 pg (27.0-33.0); MEAN CORPUSCULAR HGB CONC 32.1 g/dl (32.0-36.5); MEAN CORPUSCULAR VOLUME 100.7 fl (80.0-96.0); PLATELET COUNT, AUTOMATED 303 10^3/uL (150-450); RED BLOOD COUNT 2.78 10^6/uL (4.00-5.40); WHITE BLOOD COUNT 20.9 10^3/uL (4.0-10.0)
[2019-04-15 05:02] LABS: ALBUMIN 1.5 GM/DL (3.2-5.2); ALT/SGPT 31 U/L (12-78); BILIRUBIN,TOTAL 3.4 MG/DL (0.2-1.0); BLOOD UREA NITROGEN 2 MG/DL (7-18); CALCIUM LEVEL 7.6 MG/DL (8.5-10.1); CARBON DIOXIDE LEVEL 24 MEQ/L (21-32); CHLORIDE LEVEL 109 MEQ/L (98-107); GLOMERULAR FILTRATION RATE > 60.0 (>60); GLUCOSE, FASTING 71 MG/DL (70-100); POTASSIUM SERUM 3.3 MEQ/L (3.5-5.1); SODIUM LEVEL 140 MEQ/L (136-145); TOTAL PROTEIN 5.6 GM/DL (6.4-8.2)
[2019-04-15] MEDS ORDERED: DEXTROSE 50% 50 ML SYRINGE IV PRN (05:30)
[2019-04-15] MEDS ORDERED: GLUCAGON FOR INJ 1 MG VIAL (J1610) SC PRN (05:30)
[2019-04-15] MEDS ORDERED: GLUCOSE 4 GM CHEW TABLET PO PRN (05:30)
[2019-04-15] MEDS: KCL 10MEQ/100ML SWI (KRUN) 10 MEQ in IV 1 EA IV SCH ×2 (06:30→07:46)
[2019-04-15 06:33] LABS: MAGNESIUM LEVEL 1.3 MG/DL (1.8-2.4)
[2019-04-15] MEDS ORDERED: HumaLOG INSULIN (NovoLOG) PER UNIT SC SCH ×2 (07:30→21:00)
[2019-04-15] MEDS ORDERED: MAG SULF 1GM/100ML (MAG RUN) 1 GM in IV 1 EA IV ONE (07:45)
[2019-04-15 07:48] VITALS: BP 106/56
[2019-04-15] MEDS ORDERED: MAG SULF 1GM/100ML (MAG RUN) 1 GM in IV 1 EA IV SCH (08:00)
[2019-04-15] MEDS ORDERED: POTASSIUM CHLORIDE 10 MEQ SR TABLET PO ONE (08:00)
[2019-04-15] MEDS ORDERED: traMADol 50 MG TAB PO ONE (08:15)
[2019-04-15] MEDS ORDERED: KETOROLAC 30 MG/ML VIAL (J1885) IV ONE (08:15)
[2019-04-15] MEDS ORDERED: ALPRAZolam 0.25 MG TAB PO ONE (08:15)
[2019-04-15] MEDS: MAG SULF 1GM/100ML (MAG RUN) 1 GM in IV 1 EA IV SCH ×2 (08:56→10:41)
[2019-04-15] MEDS: PANTOPRAZOLE 40MG INJ (PROTONIX) (C9113) IV SCH ×2 (08:56→20:29)
[2019-04-15] MEDS ORDERED: VANCOMYCIN HCL 1,000 MG, VIAL MATE ADAPTER 1 EACH in D5W 250 ML IV SCH (09:00)
[2019-04-15 11:40] VITALS: BP 102/64
--- NOTE | 2019-04-15 12:53 | IPNPDOC ---
Date Seen The patient was seen on 04/15/19. Progress Note SUBJECTIVE: Irritable, yelling, "I just want to pee." Per RN, blood pressure and urine output has been stable. still c/o abd discomfort 3/10 diffuse with distention without n/v/f/c. OBJECTIVE: VITALS: PLS SEE BELOW: General Exam: Positive: Alert, Cooperative, No Acute Distress, Other Eye Exam: Positive: PERRLA,Mild icterus. ENT Exam: Positive: Atraumatic, Mucous membr. moist/pink Neck Exam: Positive: Supple; Negative: JVD, thyromegaly Chest Exam: Positive: Clear to auscultation, Normal air movement Heart Exam: Positive: Rate Normal, Regular Rhythm, Normal S1, Normal S2; Negative: Murmurs, Rubs Abdomen Exam: Positive: distended Normal bowel sounds, Soft, epigastrictenderness. (+)fluid wave. no rebound no guarding . Extremity Exam: Positive: Normal pulses; Negative: Clubbing, Cyanosis, Edema Skin Exam: Positive: Nl turgor and temperature; Negative: Rash, Breakdown b/l tattoos on upper extremities Neuro Exam: Positive: Strength at 5/5 X4 ext, Sensation Intact Psych Exam: Positive: Mood NL, Oriented x 3 LABORATORY DATA, MICROBIOLOGY, IMAGING STUDIES: REVIEWED, PLS SEE BELOW 28 years old white female with past medical history of alcoholism and nicotine addiction has multiple admission in this hospital with a similar problem of abdominal pain, pancreatitis and alcohol intoxication. Sepsis due to pneumonia and possible sbp. paracentesis in AM. continued on zosyn with decreasing wbc. Decompensated alcoholic liver cirrhosis with anasarca and possible sbp therapeutic and diagnostic paracentesis in the morning. may need albumin infusions and diuresis with lasix if blood pressure permits. on iv zosyn. monitor for gi bleed. Alcohol abuse continue CIWA protocol thiamine , folate. ativan. Severe Hypomagnesemia and Hypokalemia continue replacement Thrombocytopenia due to alcohol mediated bone marrow suppresion Anemia with Macrocytosis due to alcohol abuse and bone marrow suppression Vit B12 and folate levels will be checked in am. there is no iron def. Nicotine dependence counselled about quitting smoking disposition: transfer to [facility]. await clinical improvement 1-2 days. VS, I&O, 24H, Fishbone Vital Signs/I&O Vital Signs Date Time Temp Pulse Resp B/P (MAP) Pulse Ox O2 Delivery O2 Flow Rate FiO2 04/15/19 11:40 98.4 81 18 102/64 (77) 92 Room Air 04/14/19 20:56 2.0 I&O- Last 24 Hours up to 6 AM 04/15/19 06:00 Intake Total 550 ml Output Total 800 ml Balance -250 ml Laboratory Data 24H LABS Laboratory Tests 2 04/14/19 16:11: Immature Granulocyte % (Auto) 0.8, Neutrophils (%) (Auto) 80.7H, Lymphocytes (%) (Auto) 10.8L, Monocytes (%) (Auto) 5.9H, Eosinophils (%) (Auto) 1.2, Basophils (%) (Auto) 0.6, Neutrophils # (Auto) 24.2H, Lymphocytes # (Auto) 3.2, Monocytes # (Auto) 1.8H, Eosinophils # (Auto) 0.4, Basophils # (Auto) 0.2, Nucleated Red Blood Cells % (auto) 0.0, Prothrombin Time 18.9H, Prothromb Time International Ratio 1.61, Activated Partial Thromboplast Time 45.0H, Anion Gap 10, Glomerular Filtration Rate > 60.0, Lactic Acid Level 2.8*H, Calcium Level 8.1L, Total Bilirubin 3.7H, Direct Bilirubin 2.5H, Aspartate Amino Transf (AST/SGOT) 217H, Alanine Aminotransferase (ALT/SGPT) 42, Alkaline Phosphatase 442H, Total Creatine Kinase 49, Creatine Kinase MB < 1.0, Creatine Kinase MB Relative Index 2.04, Troponin I < 0.02, Total Protein 7.0, Albumin 1.9L, Albumin/Globulin Ratio 0.37L, Lipase 750H, Human Chorionic Gonadotropin, Qual NEGATIVE 04/14/19 16:15: Ammonia < 10 04/14/19 16:23: Urine Color LAMONT, Urine Appearance CLEAR, Urine pH 7.0, Urine Specific [place] 1.011, Urine Protein NEGATIVE, Urine Glucose (UA) NEGATIVE, Urine Ketones NEGATIVE, Urine Blood NEGATIVE, Urine Nitrite NEGATIVE, Urine Bilirubin NEG ATIVE, Urine Urobilinogen 2.0H, Urine Leukocyte Esterase NEGATIVE, Urine WBC (Auto) 1, Urine RBC (Auto) 3, Urine Hyaline Casts (Auto) 0, Urine Bacteria (Auto) NEGATIVE, Urine Squamous Epithelial Cells 0, Urine Sperm (Auto) 2/8/20 16:57: Influenza Type A (RT-PCR) NEGATIVE, Influenza Type B (RT-PCR) NEGATIVE 04/14/19 22:06: Lactic Acid Followup at 4 Hours 1.2 04/15/19 04:16: Nucleated Red Blood Cells % (auto) 0.0, Anion Gap 7L, Glomerular Filtration Rate > 60.0, Calcium Level 7.6L, Magnesium Level 1.3L, Total Bilirubin 3.4H, Aspartate Amino Transf (AST/SGOT) 164H, Alanine Aminotransferase (ALT/SGPT) 31, Alkaline Phosphatase 338H, Total Protein 5.6L, Albumin 1.5#L, Albumin/Globulin Ratio 0.37L CBC/BMP Laboratory Tests 04/14/19 16:11 04/15/19 04:16 Microbiology Microbiology 04/14/19 Blood Culture, Received Pending 04/14/19 Respiratory Virus Panel (PCR) ([facility]ACQUE) - Final, Complete 04/14/19 Blood Culture, Received Pending MIKO HARLEY MD Apr 15, 2019 12:50
[2019-04-15] MEDS: VANCOMYCIN HCL 1,000 MG, VIAL MATE ADAPTER 1 EACH in D5W 250 ML IV SCH ×2 (13:56→22:08)
[2019-04-15 14:00] VITALS: BP 97/56
[2019-04-15] MEDS: ONDANSETRON 4MG/2ML VIAL (J2405) IV PRN (18:16)
--- NOTE | 2019-04-15 20:35 | CR ---
DATE OF CONSULTATION: 04/15/2019 HISTORY OF PRESENT ILLNESS: A 28-year-old white female with longstanding history of chronic alcoholism with alcoholic hepatitis status post multiple episodes of pancreatitis with ascites, biliary dyskinesia and alcoholism. The patient was admitted to [facility] again with abdominal pain. The patient relates the abdominal pain has been consistent with a 2/6 level. The patient has had an extensive workup at [facility] for over 26 days. Multiple studies showed some gallbladder wall thickening, ascites, anasarca, cirrhosis of liver, ejection fraction of 20% showed suggesting a biliary dyskinesia. The patient presents again with abdominal pain, anemia, elevated liver functions, elevated coags, low albumin. PAST MEDICAL HISTORY: Positive for:: 1. Alcoholic hepatitis. 2. Alcoholism. 3. Pancreatitis secondary to do alcoholism. 4. Biliary dyskinesia. PAST SURGICAL HISTORY: Pepin teeth removal. SOCIAL HISTORY: Chronic alcohol abuse. The patient drinks about 1 liter a day for the past 6 years. The patient states that she stopped drinking around [place]. However, she continues with just having complaints of abdominal pain. Smokes 2-3 cigarettes a week. Denies any intravenous (IV) street drugs. No known allergies. REVIEW OF SYSTEMS: Noncontributory. Abdomen was soft, nontender. No masses or guarding. Lower abdominal tenderness. No hepatosplenomegaly. Bowel sounds positive. DIAGNOSTIC STUDIES ON THIS ADMISSION: Included: 1. Abdominal CT, which showed bilateral effusions, perineal ascites, edema, anasarca, and bilateral lower lobe atelectasis. 2. Borderline splenomegaly. 3. Question of possible small bowel distention, some ileus suggesting, on the films, kidney stones. LABORATORY STUDIES:: On admission showed a white count of 30,000, hemoglobin and hematocrit (H and H) of 10 and 31.7. White count today is 20.9 at 9:28, platelets were 300,000. Chemistry on admission showed a total bilirubin of 3.7, AST of 217, ALT of 22, alkaline phosphatase of 4.2. This is highly suggestive for alcohol hepatitis. Albumin is 1.9. Lipase was 750. Patient is not . INR 1.61. The patient does not have the flu. ANALYSIS: 1. Alcoholism. 2. Alcoholic hepatitis secondary #1. 3. Cirrhosis of liver secondary to #1. 4. Elevated lipase, possible mild case of pancreatitis. 5. Chronic pain syndrome. 6. Anasarca. 7. Hypoalbuminemia. PLAN: 1. Will be to suggest abdominal paracentesis for possible evaluation for spontaneous bacterial peritonitis. 2. Replace magnesium and potassium levels. 3. Encourage nonsmoking. 4. Encourage no alcohol abuse. 5. Suggest psychiatric consultation for chronic medications for anxiety/depression. 6. Patient's vaccines have to be updated. Patient should be vaccinated for hepatitis A and/or B, if this has not been previously done. 7. If the patient is able to stay off alcohol for at least six months and we are sure of this, then she could be referred to [facility] for consideration and evaluation for possible candidacy for a liver transplantation. 8. At this point, there is nothing more to be done except for culture the patient up, including a urine and sputum and asci ties due to the elevated white count. Possibly, this could be related to pancreatitis. This is unclear. Patient has a chronic medical condition and continues to be admitted frequency to the hospital for treatment and evaluation. The fact that the INR is 1.6 and the albumin is 1.9, shows that the patient's liver is not functioning very well at all. The patient states she is not drinking, but this is an unclear issue at this time. Supportive care at this point. MTDD
[2019-04-15 22:00] VITALS: BP 92/58
[2019-04-16] VITALS (7 sets, daily range): BP systolic 92–105; BP diastolic 50–62
[2019-04-16] MEDS: MORPHINE 2 MG/ML 1ML VIAL (J2270) IV PRN ×4 (02:35→22:42)
[2019-04-16] MEDS: PIPERACILLIN/TAZOBACTAM SOD 4.5 GM in D5W MINI-BAG PLUS 50 ML IV SCH ×3 (04:50→16:38)
[2019-04-16 06:01] LABS: HEMATOCRIT 25.3 % (36.0-47.0); HEMOGLOBIN 8.1 g/dl (12.0-15.5); MEAN CORPUSCULAR HEMOGLOBIN 32.1 pg (27.0-33.0); MEAN CORPUSCULAR VOLUME 100.4 fl (80.0-96.0); PLATELET COUNT, AUTOMATED 276 10^3/uL (150-450); RED BLOOD COUNT 2.52 10^6/uL (4.00-5.40); WHITE BLOOD COUNT 19.7 10^3/uL (4.0-10.0)
[2019-04-16] MEDS: VANCOMYCIN HCL 1,000 MG, VIAL MATE ADAPTER 1 EACH in D5W 250 ML IV SCH ×3 (06:04→22:41)
[2019-04-16 06:33] LABS: ALBUMIN 1.3 GM/DL (3.2-5.2); ALT/SGPT 33 U/L (12-78); BILIRUBIN,TOTAL 2.9 MG/DL (0.2-1.0); BLOOD UREA NITROGEN 2 MG/DL (7-18); CARBON DIOXIDE LEVEL 20 MEQ/L (21-32); CHLORIDE LEVEL 111 MEQ/L (98-107); CREATININE FOR GFR 0.67 MG/DL (0.55-1.30); GLOMERULAR FILTRATION RATE > 60.0 (>60); GLUCOSE, FASTING 98 MG/DL (70-100); MAGNESIUM LEVEL 1.8 MG/DL (1.8-2.4); POTASSIUM SERUM 3.9 MEQ/L (3.5-5.1); SODIUM LEVEL 140 MEQ/L (136-145); TOTAL PROTEIN 5.6 GM/DL (6.4-8.2)
[2019-04-16] MEDS: PANTOPRAZOLE 40MG INJ (PROTONIX) (C9113) IV SCH ×2 (08:58→20:41)
[2019-04-16] MEDS: ONDANSETRON 4MG/2ML VIAL (J2405) IV PRN ×2 (10:25→18:47)
[2019-04-16] MEDS ORDERED: oxyCODONE 5MG TAB PO ONE (11:00)
--- NOTE | 2019-04-16 13:12 | REP ---
Clinical: Ascites. Technique: Real time acevedo scale ultrasound examination using curved array transducer. Findings: Limited abdominal ultrasound through the four quadrants of the abdomen and pelvis demonstrates no significant ascites and paracentesis cannot be performed. Impression: No significant ascites. Electronically Signed by Demetrio Ramirez MD 04/16/2019 01:03 P
--- NOTE | 2019-04-16 13:21 | IPN ---
DATE: 04/16/2019 Patient still complains of significant abdominal pain rated as 7/10 when she is sitting with increased abdominal distention, with a T-max of 100.6 overnight. The patient had been vancomycin and Zosyn. Awaiting ultrasound guided paracentesis to rule out spontaneous bacterial peritonitis (SBP). The patient is tolerating her diet, had one episode of nausea, given Zofran, which resolved. She was able to eat her toast this morning and was proceeding to eat her banana prior to going down for paracentesis. The patient was irritable and did not want to talk about her alcohol abuse. Refused a psychiatric referral as an inpatient as she sees someone already as an outpatient that manages her anxiety. Per Dr. Bass continue with supportive care, paracentesis, treatment for SBP if present, and outpatient alcohol rehab program. No need for prednisone at this time. Vitals: Temperature 100.6, pulse 104, respiratory rate 18, blood pressure 92/58, 92% on room air. Generally, patient is with slight icterus. No jugular venous distention (JVD) or thyromegaly. Lungs diminished, but clear. Heart S1, S2 sinus tachycardia. Abdomen is distended, positive fluid wave. Hepatosplenomegaly noted. No rebound or guarding. Extremities positive pitting edema. White count 19.7, hemoglobin 8.1, hematocrit 25, platelet count 276. Sodium 140, potassium 3.9, chloride 111, bicarb 20, BUN 2, creatinine 0.67, glucose 98, magnesium of 1.3. ASSESSMENT/PLAN: This is a 28-year-old alcoholic, history of alcoholic hepatitis, liver cirrhosis, pancreatitis due to alcoholism, biliary dyskinesia who presented with abdominal pain, anemia and abnormal liver function tests. The patient was seen by Dr. Bass who recommended paracentesis, treatment for spontaneous bacterial peritonitis, correction of electrolytes, psychiatric consultation, vaccination for hepatitis A and B if it has not been done previously, [facility] referral if the patient is abstinent from alcohol for six months. IMPRESSION: 1. Alcoholic liver cirrhosis with recurrent ascites. Rule out spontaneous bacterial peritonitis, currently on intravenous Zosyn, awaiting paracentesis to be done. Continue with full supportive care. 2. Chronic alcohol abuse. Her last drink was in February. The patient declines alcohol rehab, anxiety, depression. Resumed on home medications. 3. Active tobacco abuse. Smoking cessation counseling. 4. Alcohol abuse. Refuses alcohol rehab. MTDD
[2019-04-16] MEDS: oxyCODONE 5MG TAB PO PRN (20:41)
[2019-04-16] MEDS: DOXYCYCLINE HYCLATE 100 MG in D5W MINI-BAG PLUS 100 ML IV SCH (20:42)
[2019-04-17] MEDS: PIPERACILLIN/TAZOBACTAM SOD 4.5 GM in D5W MINI-BAG PLUS 50 ML IV SCH ×5 (00:19→22:53)
[2019-04-17] MEDS: oxyCODONE 5MG TAB PO PRN ×4 (01:34→20:50)
[2019-04-17 02:00] VITALS: BP 95/55
[2019-04-17] MEDS: MORPHINE 2 MG/ML 1ML VIAL (J2270) IV PRN ×3 (05:08→17:55)
[2019-04-17 06:00] VITALS: BP 95/60
[2019-04-17 06:05] LABS: HEMATOCRIT 24.7 % (36.0-47.0); MEAN CORPUSCULAR HEMOGLOBIN 32.8 pg (27.0-33.0); MEAN CORPUSCULAR HGB CONC 32.4 g/dl (32.0-36.5); MEAN CORPUSCULAR VOLUME 101.2 fl (80.0-96.0); PLATELET COUNT, AUTOMATED 241 10^3/uL (150-450); RED BLOOD COUNT 2.44 10^6/uL (4.00-5.40); WHITE BLOOD COUNT 18.3 10^3/uL (4.0-10.0)
[2019-04-17] MEDS: VANCOMYCIN HCL 1,000 MG, VIAL MATE ADAPTER 1 EACH in D5W 250 ML IV SCH (06:35)
[2019-04-17 06:36] LABS: ALBUMIN 1.5 GM/DL (3.2-5.2); ALT/SGPT 30 U/L (12-78); BILIRUBIN,TOTAL 2.6 MG/DL (0.2-1.0); BLOOD UREA NITROGEN 4 MG/DL (7-18); CALCIUM LEVEL 7.9 MG/DL (8.5-10.1); CARBON DIOXIDE LEVEL 24 MEQ/L (21-32); CHLORIDE LEVEL 108 MEQ/L (98-107); CREATININE FOR GFR 0.66 MG/DL (0.55-1.30); GLOMERULAR FILTRATION RATE > 60.0 (>60); GLUCOSE, FASTING 95 MG/DL (70-100); MAGNESIUM LEVEL 1.5 MG/DL (1.8-2.4); POTASSIUM SERUM 3.7 MEQ/L (3.5-5.1); SODIUM LEVEL 139 MEQ/L (136-145); TOTAL PROTEIN 5.7 GM/DL (6.4-8.2)
[2019-04-17] MEDS: PANTOPRAZOLE 40MG INJ (PROTONIX) (C9113) IV SCH ×2 (07:58→20:48)
[2019-04-17] MEDS: DOXYCYCLINE HYCLATE 100 MG in D5W MINI-BAG PLUS 100 ML IV SCH (07:59)
[2019-04-17] MEDS: MAGNESIUM OXIDE 400 MG TAB (MAG-OX) PO SCH ×3 (08:08→20:48)
[2019-04-17 10:00] VITALS: BP 99/62
[2019-04-17] MEDS: ALPRAZolam 0.25 MG TAB PO PRN ×2 (11:36→20:48)
[2019-04-17 14:00] VITALS: BP 101/92
--- NOTE | 2019-04-17 15:05 | IPNPDOC ---
Subjective Date Seen The patient was seen on 04/17/19. Subjective Chief Complaint/HPI tolerating diet. c/o generalized abd pain. No nausea/vomiting Objective Physical Examination General Exam: Positive: Alert, Mild Distress Eye Exam: Negative: Sclera icteric ENT Exam: Positive: Atraumatic Neck Exam: Positive: Supple Heart Exam: Positive: Rate Normal Abdomen Exam: Positive: Normal bowel sounds, Tenderness, Other (no grossly visible ascites); Negative: Mass Extremity Exam: Negative: Clubbing, Cyanosis Skin Exam: Positive: Nl turgor and temperature; Negative: Rash, Breakdown Neuro Exam: Positive: Normal Speech Psych Exam: Positive: Mental status NL Assessment /Plan Assessment # CAP with sepsis - stop vanco + doxy - continue zosyn # Doubt SBP - unable to do paracentesis due to inability to visualize pocket of ascitic fluid to tap # Alcoholic hepatitis - supportive care # Mild pancreatitis - likely due to chronci alcoholism # Biliary dyskinesia is likely source of her chronic abd pain - f/u with surgery as outpatient # Anxiety - resume alprazolam tid prn Plan/VTE VTE Prophylaxis Ordered?: Yes VTE Exclusion Mechanical Proph: N/A:VTE Prophy Ordered VTE Exclusion Pharmacological: Other (alcoholic hepatitis) VS, I&O, 24H, Fishbone Vital Signs/I&O Vital Signs Date Time Temp Pulse Resp B/P (MAP) Pulse Ox O2 Delivery O2 Flow Rate FiO2 04/17/19 14:00 98.9 85 17 101/92 (95) 91 Room Air 04/14/19 20:56 2.0 I&O- Last 24 Hours up to 6 AM 04/17/19 06:00 Intake Total 2330 ml Output Total 2200 ml Balance 130 ml Laboratory Data 24H LABS Laboratory Tests 2 04/17/19 05:35: Nucleated Red Blood Cells % (auto) 0.0, Anion Gap 7L, Glomerular Filtration Rate > 60.0, Calcium Level 7.9L, Magnesium Level 1.5L, Total Bilirubin 2.6H, Aspartate Amino Transf (AST/SGOT) 149H, Alanine Aminotransferase (ALT/SGPT) 30, Alkaline Phosphatase 333H, Total Protein 5.7L, Albumin 1.5L, Albumin/Globulin Ratio 0.36L CBC/BMP Laboratory Tests 04/17/19 05:35 Microbiology Microbiology 04/14/19 Blood Culture - Preliminary, Resulted No Growth after 48 hours. All Specime... 04/14/19 Respiratory Virus Panel (PCR) ([facility]ACQUE) - Final, Complete 04/14/19 Blood Culture - Preliminary, Resulted No Growth after 48 hours. All Specime... BRUCE WALLER MD Apr 17, 2019 15:05
[2019-04-17] MEDS: ONDANSETRON 4MG/2ML VIAL (J2405) IV PRN (17:18)
[2019-04-17 18:00] VITALS: BP_SYST 109; BP_SYST 197; BP_DIAS 71
[2019-04-17 22:00] VITALS: BP 96/60
[2019-04-18] MEDS: MORPHINE 2 MG/ML 1ML VIAL (J2270) IV PRN ×3 (00:32→15:13)
[2019-04-18] MEDS: ONDANSETRON 4MG/2ML VIAL (J2405) IV PRN ×3 (00:32→15:14)
[2019-04-18 02:00] VITALS: BP 99/62
[2019-04-18] MEDS: PIPERACILLIN/TAZOBACTAM SOD 4.5 GM in D5W MINI-BAG PLUS 50 ML IV SCH ×4 (04:57→23:19)
[2019-04-18] MEDS: oxyCODONE 5MG TAB PO PRN ×4 (04:58→23:21)
[2019-04-18 06:00] VITALS: BP 96/50
[2019-04-18 06:24] LABS: HEMATOCRIT 25.1 % (36.0-47.0); HEMOGLOBIN 8.3 g/dl (12.0-15.5); MEAN CORPUSCULAR HEMOGLOBIN 33.2 pg (27.0-33.0); MEAN CORPUSCULAR HGB CONC 33.1 g/dl (32.0-36.5); MEAN CORPUSCULAR VOLUME 100.4 fl (80.0-96.0); PLATELET COUNT, AUTOMATED 252 10^3/uL (150-450); WHITE BLOOD COUNT 16.6 10^3/uL (4.0-10.0)
[2019-04-18 06:59] LABS: ALBUMIN 1.5 GM/DL (3.2-5.2); ALT/SGPT 25 U/L (12-78); BILIRUBIN,TOTAL 2.2 MG/DL (0.2-1.0); BLOOD UREA NITROGEN 6 MG/DL (7-18); CALCIUM LEVEL 7.7 MG/DL (8.5-10.1); CARBON DIOXIDE LEVEL 24 MEQ/L (21-32); CHLORIDE LEVEL 107 MEQ/L (98-107); CREATININE FOR GFR 0.56 MG/DL (0.55-1.30); GLOMERULAR FILTRATION RATE > 60.0 (>60); GLUCOSE, FASTING 95 MG/DL (70-100); MAGNESIUM LEVEL 1.5 MG/DL (1.8-2.4); POTASSIUM SERUM 3.3 MEQ/L (3.5-5.1); SODIUM LEVEL 139 MEQ/L (136-145); TOTAL PROTEIN 5.8 GM/DL (6.4-8.2)
[2019-04-18] MEDS ORDERED: MAG SULF 1GM/100ML (MAG RUN) 1 GM in IV 1 EA IV ONE (08:00)
[2019-04-18] MEDS: PANTOPRAZOLE 40MG INJ (PROTONIX) (C9113) IV SCH (08:33)
[2019-04-18] MEDS: ALPRAZolam 0.25 MG TAB PO PRN ×2 (08:34→18:46)
[2019-04-18] MEDS: MAGNESIUM OXIDE 400 MG TAB (MAG-OX) PO SCH ×3 (08:34→21:24)
[2019-04-18] MEDS ORDERED: POTASSIUM CHLORIDE 10 MEQ SR TABLET PO SCH (09:00)
[2019-04-18 14:00] VITALS: BP 108/67
--- NOTE | 2019-04-18 15:47 | IPNPDOC ---
Subjective Date Seen The patient was seen on 04/18/19. Subjective Chief Complaint/HPI Tolerating diet. abd pain is present, but less severe. Objective Physical Examination General Exam: Positive: Alert, Mild Distress Eye Exam: Negative: Sclera icteric ENT Exam: Positive: Atraumatic Neck Exam: Positive: Supple Heart Exam: Positive: Rate Normal Abdomen Exam: Positive: Normal bowel sounds, Tenderness, Other (no grossly visible ascites); Negative: Mass Extremity Exam: Negative: Clubbing, Cyanosis Skin Exam: Positive: Nl turgor and temperature; Negative: Rash, Breakdown Neuro Exam: Positive: Normal Speech Psych Exam: Positive: Mental status NL Assessment /Plan Assessment # CAP with sepsis - continue zosyn for another 24-48 hours - wbc continues to improve - likely home in 1-2 days # Doubt SBP - unable to do paracentesis due to inability to visualize pocket of ascitic fluid to tap # Alcoholic hepatitis - supportive care # Mild pancreatitis - likely due to chronic alcoholism # Biliary dyskinesia is likely source of her chronic abd pain - f/u with surgery as outpatient - stop IV morphine - oxycodone prn # Anxiety - resume alprazolam tid prn Plan/VTE VTE Prophylaxis Ordered?: Yes VTE Exclusion Mechanical Proph: N/A:VTE Prophy Ordered VTE Exclusion Pharmacological: Other (alcoholic hepatitis) VS, I&O, 24H, Fishbone Vital Signs/I&O Vital Signs Date Time Temp Pulse Resp B/P (MAP) Pulse Ox O2 Delivery O2 Flow Rate FiO2 04/18/19 15:13 16 Room Air 04/18/19 06:00 98.9 88 96/50 (65) 97 04/14/19 20:56 2.0 I&O- Last 24 Hours up to 6 AM 04/18/19 05:59 Intake Total 1460 ml Output Total 1425 ml Balance 35 ml Laboratory Data 24H LABS Laboratory Tests 2 04/18/19 05:20: Nucleated Red Blood Cells % (auto) 0.0, Anion Gap 8, Glomerular Filtration Rate > 60.0, Calcium Level 7.7L, Magnesium Level 1.5L, Total Bilirubin 2.2H, Aspartate Amino Transf (AST/SGOT) 136H, Alanine Aminotransferase (ALT/SGPT) 25, Alkaline Phosphatase 316H, Total Protein 5.8L, Albumin 1.5L, Albumin/Globulin R atio 0.35L CBC/BMP Laboratory Tests 2/12/20 05:20 Microbiology Microbiology 04/14/19 Blood Culture - Preliminary, Resulted No Growth after 72 hours. All specime... 04/14/19 Respiratory Virus Panel (PCR) ([facility]ACQUE) - Final, Complete 04/14/19 Blood Culture - Preliminary, Resulted No Growth after 72 hours. All specime... BRUCE WALLER MD Apr 18, 2019 15:47
[2019-04-18 22:00] VITALS: BP 109/70
[2019-04-19] MEDS: ALPRAZolam 0.25 MG TAB PO PRN ×3 (01:07→21:16)
[2019-04-19 02:00] VITALS: BP 95/56
[2019-04-19] MEDS: PIPERACILLIN/TAZOBACTAM SOD 4.5 GM in D5W MINI-BAG PLUS 50 ML IV SCH ×4 (05:01→22:15)
[2019-04-19 06:00] VITALS: BP 96/51
[2019-04-19 06:24] LABS: HEMATOCRIT 25.3 % (36.0-47.0); MEAN CORPUSCULAR HEMOGLOBIN 32.8 pg (27.0-33.0); MEAN CORPUSCULAR HGB CONC 31.6 g/dl (32.0-36.5); MEAN CORPUSCULAR VOLUME 103.7 fl (80.0-96.0); PLATELET COUNT, AUTOMATED 229 10^3/uL (150-450); RED BLOOD COUNT 2.44 10^6/uL (4.00-5.40)
[2019-04-19 06:38] LABS: INR 1.65; PROTHROMBIN TIME 19.3 SECONDS (11.8-14.0)
[2019-04-19 06:53] LABS: ALBUMIN 1.6 GM/DL (3.2-5.2); ALT/SGPT 28 U/L (12-78); BILIRUBIN,TOTAL 2.2 MG/DL (0.2-1.0); BLOOD UREA NITROGEN 7 MG/DL (7-18); CALCIUM LEVEL 7.9 MG/DL (8.5-10.1); CARBON DIOXIDE LEVEL 23 MEQ/L (21-32); CHLORIDE LEVEL 108 MEQ/L (98-107); CREATININE FOR GFR 0.49 MG/DL (0.55-1.30); GLOMERULAR FILTRATION RATE > 60.0 (>60); GLUCOSE, FASTING 101 MG/DL (70-100); LIPASE 420 U/L (73-393); MAGNESIUM LEVEL 1.7 MG/DL (1.8-2.4); POTASSIUM SERUM 3.1 MEQ/L (3.5-5.1); SODIUM LEVEL 139 MEQ/L (136-145); TOTAL PROTEIN 6.1 GM/DL (6.4-8.2)
[2019-04-19] MEDS: oxyCODONE 5MG TAB PO PRN ×3 (08:59→19:38)
[2019-04-19] MEDS: POTASSIUM CHLORIDE 10 MEQ SR TABLET PO SCH ×2 (09:00→20:08)
[2019-04-19] MEDS: MAGNESIUM OXIDE 400 MG TAB (MAG-OX) PO SCH ×3 (09:00→20:07)
[2019-04-19 10:00] VITALS: BP 115/65
--- NOTE | 2019-04-19 12:07 | IPNPDOC ---
Subjective Date Seen The patient was seen on 04/19/19. Subjective Chief Complaint/HPI Ana Laura is in pain this morning and c/o nausea. She has not eaten breakfast. Objective Physical Examination General Exam: Positive: Alert, Moderate Distress Eye Exam: Negative: Sclera icteric ENT Exam: Positive: Atraumatic Neck Exam: Positive: Supple Heart Exam: Positive: Rate Normal Abdomen Exam: Positive: Normal bowel sounds, Tenderness (genralized, abd not distended or indicative of acute pertonitis), Other (no grossly visible ascites); Negative: Mass Extremity Exam: Negative: Clubbing, Cyanosis Skin Exam: Positive: Nl turgor and temperature; Negative: Rash, Breakdown Neuro Exam: Positive: Normal Speech Psych Exam: Positive: Mental status NL Assessment /Plan Assessment # CAP with sepsis - continue zosyn and transition to augmentin in am - wbc continues to improve - # Doubt SBP - unable to do paracentesis due to inability to visualize any pocket of ascitic fluid to tap # Alcoholic hepatitis - supportive care - AST, TBili are trending lower # Mild pancreatitis - likely due to chronic alcoholism - lipase trending lower # Biliary dyskinesia is likely source of her chronic abd pain - f/u with surgery as outpatient - stop IV morphine - oxycodone prn # Anxiety - resume alprazolam tid prn Plan/VTE VTE Prophylaxis Ordered?: Yes VTE Exclusion Mechanical Proph: N/A:VTE Prophy Ordered VTE Exclusion Pharmacological: Other (alcoholic hepatitis) VS, I&O, 24H, Fishbone Vital Signs/I&O Vital Signs Date Time Temp Pulse Resp B/P (MAP) Pulse Ox O2 Delivery O2 Flow Rate FiO2 04/19/19 10:00 97.5 85 18 115/65 (82) 100 Room Air 04/14/19 20:56 2.0 I&O- Last 24 Hours up to 6 AM 04/19/19 06:00 Intake Total 1250 ml Output Total 300 ml Balance 950 ml Laboratory Data 24H LABS Laboratory Tests 2 04/19/19 05:25: Nucleated Red Blood Cells % (auto) 0.0, Prothrombin Time 19.3H, Prothromb Time International Ratio 1.65, Anion Gap 8, Glomerular Filtration Rate > 60.0, Calcium Level 7.9L, Magnesium Level 1.7L, Total Bilirubin 2.2H, Aspartate Amino Transf (AST/SGOT) 141H, Alanine Aminotransferase (ALT/SGPT) 28, Alkaline Phosphatase 315H, Total Protein 6.1L, Albumin 1.6L, Albumin/Globulin Ratio 0.36L, Lipase 420H CBC/BMP Laboratory Tests 04/19/19 05:25 Microbiology Microbiology 04/14/19 Blood Culture - Preliminary, Resulted No Growth after 72 hours. All specime... 04/14/19 Respiratory Virus Panel (PCR) ([facility]ACQUE) - Final, Complete 04/14/19 Blood Culture - Preliminary, Resulted No Growth after 72 hours. All specime... BRUCE WALLER MD Apr 19, 2019 12:07
[2019-04-19 14:00] VITALS: BP 120/65
[2019-04-19 18:00] VITALS: BP 118/60
[2019-04-19] MEDS: ONDANSETRON 4MG/2ML VIAL (J2405) IV PRN (20:07)
[2019-04-19 22:00] VITALS: BP 107/64
[2019-04-20 02:00] VITALS: BP 102/60
[2019-04-20] MEDS: PIPERACILLIN/TAZOBACTAM SOD 4.5 GM in D5W MINI-BAG PLUS 50 ML IV SCH (04:31)
[2019-04-20 06:00] VITALS: BP 101/59
[2019-04-20] MEDS: oxyCODONE 5MG TAB PO PRN ×2 (06:00→12:49)
[2019-04-20 06:10] LABS: HEMATOCRIT 24.2 % (36.0-47.0); MEAN CORPUSCULAR HEMOGLOBIN 33.5 pg (27.0-33.0); MEAN CORPUSCULAR HGB CONC 33.1 g/dl (32.0-36.5); MEAN CORPUSCULAR VOLUME 101.3 fl (80.0-96.0); PLATELET COUNT, AUTOMATED 232 10^3/uL (150-450); RED BLOOD COUNT 2.39 10^6/uL (4.00-5.40); WHITE BLOOD COUNT 14.3 10^3/uL (4.0-10.0)
[2019-04-20 06:34] LABS: ALBUMIN 1.5 GM/DL (3.2-5.2); ALT/SGPT 30 U/L (12-78); BILIRUBIN,TOTAL 2.1 MG/DL (0.2-1.0); BLOOD UREA NITROGEN 6 MG/DL (7-18); CALCIUM LEVEL 7.7 MG/DL (8.5-10.1); CARBON DIOXIDE LEVEL 23 MEQ/L (21-32); CHLORIDE LEVEL 111 MEQ/L (98-107); CREATININE FOR GFR 0.46 MG/DL (0.55-1.30); GLOMERULAR FILTRATION RATE > 60.0 (>60); GLUCOSE, FASTING 108 MG/DL (70-100); MAGNESIUM LEVEL 1.4 MG/DL (1.8-2.4); POTASSIUM SERUM 3.4 MEQ/L (3.5-5.1); SODIUM LEVEL 142 MEQ/L (136-145); TOTAL PROTEIN 5.4 GM/DL (6.4-8.2)
[2019-04-20] MEDS ORDERED: AUGMENTIN 875 MG TAB PO SCH (09:00)
[2019-04-20] MEDS: MAG SULF 1GM/100ML (MAG RUN) 1 GM in IV 1 EA IV SCH ×4 (09:35→12:49)
[2019-04-20] MEDS: POTASSIUM CHLORIDE 10 MEQ SR TABLET PO SCH (09:36)
[2019-04-20] MEDS: MAGNESIUM OXIDE 400 MG TAB (MAG-OX) PO SCH ×2 (09:36→16:56)
[2019-04-20] MEDS: ALPRAZolam 0.25 MG TAB PO PRN (11:45)
[2019-04-20] MEDS: ONDANSETRON 4MG/2ML VIAL (J2405) IV PRN (11:47)
[2019-04-20] MEDS ORDERED: ALPR0.25 PO (11:50)
[2019-04-20] MEDS ORDERED: TRAM50TA2 PO (11:50)
[2019-04-20] MEDS ORDERED: AMOX875T2 PO (11:54)
--- NOTE | 2019-04-20 12:01 | IPNPDOC ---
Subjective Date Seen The patient was seen on 04/20/19. Subjective Chief Complaint/HPI Sitting at edge of bed, in no distress. Objective Physical Examination General Exam: Positive: Alert, Moderate Distress Eye Exam: Negative: Sclera icteric ENT Exam: Positive: Atraumatic Neck Exam: Positive: Supple Chest Exam: Positive: Clear to auscultation, Normal air movement Heart Exam: Positive: Rate Normal Telemetry: Positive: No significant arrhythmia Abdomen Exam: Positive: Normal bowel sounds, Other (no grossly visible ascites); Negative: Tenderness, Mass Female Exam: Positive: Nl Ext Genitalia; Negative: Lesions, Discharge, Odor, Tenderness Extremity Exam: Negative: Clubbing, Cyanosis Skin Exam: Positive: Nl turgor and temperature; Negative: Rash, Breakdown Neuro Exam: Positive: Normal Speech Psych Exam: Positive: Mental status NL Assessment /Plan Assessment # CAP with sepsis - change to augmentin for 5 more days - home today - f/u with PCP in 1 week - given script for tramadol + ativan x 7 days # Doubt SBP - unable to do paracentesis due to inability to visualize any pocket of ascitic fluid to tap # Alcoholic hepatitis - supportive care - AST, TBili are trending lower - has been teetotaler for almost 2 months, f/u with GI in 2-3 weeks # Mild pancreatitis - likely due to chronic alcoholism - lipase trending lower # Biliary dyskinesia is likely source of her chronic abd pain - d/w with surgery not a surgical candidate due to liver cirrhosis - stop IV morphine - oxycodone prn # Anxiety - resume alprazolam tid prn Plan/VTE VTE Prophylaxis Ordered?: Yes VTE Exclusion Mechanical Proph: N/A:VTE Prophy Ordered VTE Exclusion Pharmacological: Other (alcoholic hepatitis) VS, I&O, 24H, Fishbone Vital Signs/I&O Vital Signs Date Time Temp Pulse Resp B/P (MAP) Pulse Ox O2 Delivery O2 Flow Rate FiO2 04/20/19 06:30 14 Room Air 04/20/19 06:00 99.6 89 101/59 (73) 91 04/14/19 20:56 2.0 I&O- Last 24 Hours up to 6 AM 04/20/19 06:00 Intake Total 1415 ml Output Total 1950 ml Balance -535 ml Laboratory Data 24H LABS Laboratory Tests 2 04/20/19 05:44: Nucleated Red Blood Cells % (auto) 0.0, Anion Gap 8, Glomerular Filtration Rate > 60.0, Calcium Level 7.7L, Magnesium Level 1.4L, Total Bilirubin 2.1H, Aspartate Amino Transf (AST/SGOT) 144H, Alanine Aminotransferase (ALT/SGPT) 30, Alkaline Phosphatase 304H, Total Protein 5.4L, Albumin 1.5L, Albumin/Globulin Ratio 0.38L CBC/BMP Laboratory Tests 04/20/19 05:44 Microbiology Microbiology 04/14/19 Blood Culture - Final, Complete NO GROWTH AFTER 5 DAYS 04/14/19 Respiratory Virus Panel (PCR) ([facility]ACQUE) - Final, Complete 04/14/19 Blood Culture - Final, Complete NO GROWTH AFTER 5 DAYS BRUCE WALLER MD Apr 20, 2019 12:01
[2019-04-20 14:00] VITALS: BP 101/63
--- NOTE | 2019-04-24 15:49 | DSES ---
DATE OF ADMISSION: 04/14/2019 DATE OF DISCHARGE: 04/20/2019 DISCHARGE DIAGNOSES: 1. Community-acquired pneumonia with sepsis. 2. Alcoholic hepatitis. 3. Chronic alcoholism. 4. Mild pancreatitis. 5. Biliary dyskinesia. PROCEDURES PERFORMED DURING THIS HOSPITALIZATION: None. CONSULTANTS ON THIS CASE: Boni Bass MD DISPOSITION: Patient is discharged home. DISCHARGE INSTRUCTIONS: Patient is instructed to followup with her primary care provider (PCP) in approximately 1 week. She is to followup with gastrointestinal (GI) as an outpatient in the next 2-3 weeks. CONDITION ON DISCHARGE: Improved. IMAGING STUDIES: Obtained during the patient's hospital stay were: A chest x-ray which showed small to moderate left pleural effusion, left lower lobe atelectasis. CT abdomen and pelvis which showed bilateral pleural effusions, mild peritoneal ascites. Mild bilateral lower lobe atelectasis with consolidation and question of minimal infiltrates. Borderline to mild small bowel distention with air fluid level which may reflect generalized ileus in the right with low grade obstruction not excluded but similar to 03/11/2019 CT. Minimal nonobstructive left renal calculus. CTA angiography of the chest showed mild left and minimal right pleural effusions with bilateral lower lobe atelectasis or consolidation, left greater than right. There is slight scattered and minimal patchy bilateral pulmonary embolus greatest in the lower lobes and anterior left lower lobe. Abdominal ultrasound done for consideration of paracentesis showed no significant ascites that could be tapped. DISCHARGE MEDICATIONS: Are the following: - Augmentin 875 mg one tablet twice a day - folic acid 1 mg daily - magnesium oxide 400 mg daily - multivitamin one capsule daily - Protonix 40 mg twice a day - Carafate 1 gram four times a day - alprazolam 0.25 mg three times a day as needed for anxiety - tramadol 50 mg every 6 hours as needed for pain [facility]: Respiratory viral panel was negative. Blood cultures times three did not grow any organisms. On admission, patient's white blood cell count was 30,000, following discharge it had trended down to 14.3, hemoglobin 8, hematocrit 24.2, platelet count 232,000, INR 1.65, PT 19.3, sodium 142, potassium 3.4, it was corrected prior to discharge, chloride 111, creatinine 0.46, calcium 7.7, magnesium 1.7, AST 144, ALT 30, alkaline phosphatase 304. Urine hCG was negative. Lactic acid was 2.8, with hydration improved to 1.2. Ammonia level was less than 10. Urinalysis unremarkable. Methicillin-resistant Staphylococcus aureus (MRSA) screen was negative. HOSPITAL COURSE: Ana Laura is well known to the hospitalist service. She was admitted with complaints of abdominal pain. She was found to have a mildly elevated lipase. CT of the abdomen and pelvis was otherwise unremarkable. There was a question of whether she could have a pneumonia. She was placed on broad spectrum antibiotics given her presenting white blood cell count of 30,000. She was found to be hemodynamically stable. GI was consulted. Based on the CT scan there was a question of possible ascites. Recommended for ascitic tap, however when they took her down for an ultrasound no ascites could be located that could be tapped. It was felt that patient's symptoms were likely related to her biliary dyskinesia which was diagnosed several weeks prior at [facility]. Given her liver cirrhosis with chronic alcoholic hepatitis, she was not deemed a candidate for cholecystectomy. Patient's diet was slowly advanced. Clinically, she improved and she was transitioned to oral antibiotics and subsequently discharged home in stable condition. Total of 30 minutes was needed to complete all discharge activities.
== END 2019-04-20 17:41 | disposition home or self-care (01) | DRG 444 ==
LOC: EDBD 15:13 → M ED 15:13 → M ED INP 22:33 → ENRESERV 04-15 00:01 → M ICU 04-15 00:40 → M MSPAV 04-15 11:35
PROVIDERS: ADMIT Internal Medicine; ATTEND Internal Medicine
DX: K82.8 Other specified diseases of gallbladder (principal); J18.9 Pneumonia, unspecified organism; K85.90 Acute pancreatitis without necrosis or infection, unspecified; J90 Pleural effusion, not elsewhere classified; J98.11 Atelectasis; K70.10 Alcoholic hepatitis without ascites; K70.31 Alcoholic cirrhosis of liver with ascites; R60.1 Generalized edema; D53.9 Nutritional anemia, unspecified; R00.0 Tachycardia, unspecified; D72.829 Elevated white blood cell count, unspecified; F10.10 Alcohol abuse, uncomplicated; E83.42 Hypomagnesemia; E87.6 Hypokalemia; D69.6 Thrombocytopenia, unspecified; F41.9 Anxiety disorder, unspecified; Z79.899 Other long term (current) drug therapy

== ENCOUNTER 2019-05-13 15:22 | Emergency (ER) | payer OTHER ==
[~2019-05-13] VITALS: Ht 162.6 cm; Wt 56.6 kg
[~2019-05-13 15:22] MED LIST changes: +ALPR0.25 PO; +AMOX875T2 PO; +MAGN400T3 PO; +SUCR1TAB56 PO; +TRAM50TA2 PO
[2019-05-13] MEDS ORDERED: NARC1SPR (15:31)
[2019-05-13] MEDS ORDERED: NS 500 ML IV ONE (16:15)
[2019-05-13 16:38] LABS: BASO # 0.1 10^3/uL (0.0-0.2); BASO % 1.1 % (0.0-1.0); EOS # 0.1 10^3/uL (0.0-0.5); EOS % 1.7 % (0.0-3.0); HEMATOCRIT 27.2 % (36.0-47.0); HEMOGLOBIN 9.2 g/dl (12.0-15.5); LYMPH # 1.6 10^3/uL (1.5-5.0); LYMPH % 23.5 % (24.0-44.0); MEAN CORPUSCULAR HEMOGLOBIN 33.2 pg (27.0-33.0); MEAN CORPUSCULAR HGB CONC 33.8 g/dl (32.0-36.5); MEAN CORPUSCULAR VOLUME 98.2 fl (80.0-96.0); MONO # 0.6 10^3/uL (0.0-0.8); MONO % 8.3 % (0.0-5.0); NEUTROPHILS # 4.3 10^3/uL (1.5-8.5); NEUTROPHILS % 64.9 % (36.0-66.0); PLATELET COUNT, AUTOMATED 166 10^3/uL (150-450); RED BLOOD COUNT 2.77 10^6/uL (4.00-5.40); WHITE BLOOD COUNT 6.6 10^3/uL (4.0-10.0)
[2019-05-13 16:48] LABS: ALBUMIN 2.3 GM/DL (3.2-5.2); ALT/SGPT 27 U/L (12-78); BILIRUBIN,DIRECT 1.7 MG/DL (0.0-0.2); BILIRUBIN,TOTAL 3.4 MG/DL (0.2-1.0); BLOOD UREA NITROGEN 2 MG/DL (7-18); CALCIUM LEVEL 8.5 MG/DL (8.5-10.1); CARBON DIOXIDE LEVEL 25 MEQ/L (21-32); CHLORIDE LEVEL 106 MEQ/L (98-107); CREATININE FOR GFR 0.61 MG/DL (0.55-1.30); GLOMERULAR FILTRATION RATE > 60.0 (>60); GLUCOSE, FASTING 109 MG/DL (70-100); LIPASE 388 U/L (73-393); POTASSIUM SERUM 3.7 MEQ/L (3.5-5.1); SODIUM LEVEL 139 MEQ/L (136-145); TOTAL PROTEIN 6.8 GM/DL (6.4-8.2)
[2019-05-13 16:53] LABS: INR 2.12; PROTHROMBIN TIME 23.5 SECONDS (11.8-14.0)
[2019-05-13 16:54] LABS: PARTIAL THROMBOPLASTIN TIME 49.9 SECONDS (25.0-38.4)
--- NOTE | 2019-05-13 17:11 | REP ---
Chest x-ray: Two views. History: Fever . Comparison study: April 14, 2019 . Findings: The lungs are well inflated and free of infiltrate. The pleural angles are sharp. The heart size is normal. Pulmonary vasculature is not increased. No significant bony abnormality is seen. Monitoring electrodes are seen. The previously noted infiltrates in the left base and small bilateral pleural effusions have resolved. Impression: Negative chest x-ray. Electronically Signed by Javi Martinez MD 05/13/2019 05:03 P
[2019-05-13] MEDS ORDERED: ISOVUE-370 76% 100ML VIAL (Q9967) As Ordered ONE (17:37)
[2019-05-13 18:03] LABS: AMORPHOUS SEDIMENT SMALL (NEGATIVE); APPEARANCE, URINE CLOUDY (CLEAR); BACTERIA, URINE AUTO 1+ (NEGATIVE); BILIRUBIN, URINE AUTO NEGATIVE (NEGATIVE); BLOOD, URINE BLOOD NEGATIVE (NEGATIVE); COLOR, URINE AMBER (YELLOW); GLUCOSE, URINE (UA) AUTO NEGATIVE (NEGATIVE); KETONE, URINE AUTO NEGATIVE (NEGATIVE); LEUKOCYTE ESTERASE, URINE AUTO NEGATIVE (NEGATIVE); MUCUS, URINE SMALL (NEGATIVE); NITRITE, URINE AUTO NEGATIVE (NEGATIVE); PROTEIN, URINE AUTO 1+ mg/dL (NEGATIVE); RBC, URINE AUTO 4 /HPF (0-3); SPECIFIC GRAVITY URINE AUTO 1.014 (1.002-1.035); SQUAMOUS EPITHELIAL CELL UR AU 0 /HPF (0-6); WBC, URINE AUTO 8 /HPF (0-3)
--- NOTE | 2019-05-13 18:17 | REPVR ---
PROCEDURE INFORMATION: Exam: CT Abdomen And Pelvis With Contrast Exam date and time: 05/13/2019 5:40 PM Age: 29 years old Clinical indication: Abdominal pain; Generalized; Additional info: Abd pain, fevers, cirrhosis TECHNIQUE: Imaging protocol: Computed tomography of the abdomen and pelvis with intravenous contrast. Radiation optimization: All CT scans at this facility use at least one of these dose optimization techniques: automated exposure control; mA and/or kV adjustment per patient size (includes targeted exams where dose is matched to clinical indication); or iterative reconstruction. Contrast material: ISOVUE 370; Contrast volume: 100 ml; Contrast route: IV; COMPARISON: CT ABD/PEL W/IV CONTRAST ONLY 04/14/2019 9:07 PM FINDINGS: Lungs: Minimal atelectasis and/or scar in the right lung base. Liver: Heterogeneous enlarged liver. No focal hepatic mass or intrahepatic duct dilatation. Gallbladder and bile ducts: There is diffuse low density thickening of the gallbladder wall. This may be secondary to hepatic disease as well as cholecystitis. No calcified gallstones or gallbladder distention is identified. No bile duct dilatation is identified. Pancreas: Peripancreatic fluid is present and may be secondary to acute pancreatitis in the proper clinical setting. Correlate clinically. No pancreatic duct dilatation. Spleen: The spleen is enlarged. No focal splenic lesion. Adrenals: Normal. No mass. Kidneys and ureters: Unremarkable. No stones. No hydronephrosis. Stomach and bowel: Unremarkable. No obstruction. No mucosal thickening. Appendix: No evidence of appendicitis. Intraperitoneal space: Small volume of abdominal and pelvic ascites. Vasculature: Dilatation of the portal and splenic veins consistent with portal venous hypertension. Lymph nodes: Unremarkable. No enlarged lymph nodes. Bladder: Unremarkable as visualized. Reproductive: Unremarkable as visualized. Bones/joints: No acute fracture. Soft tissues: Unremarkable. IMPRESSION: 1. Heterogeneous enlarged liver. 2. Portal venous hypertension with splenomegaly. 3. Gallbladder wall thickening, nonspecific. 4. Peripancreatic fluid raising the suspicion for acute pancreatitis. 5. Small volume of abdominal and pelvic ascites. Electronically signed by: Holger Zimmerman On 05/13/2019 18:16:48 PM
[2019-05-13 19:03] VITALS: BP 118/73
[2019-05-13] MEDS ORDERED: traMADol 50 MG TAB PO ONE (19:15)
[2019-05-14] MEDS ORDERED: ALPR0.25 PO (17:36)
[2019-05-14] MEDS ORDERED: OXYC-517 PO (17:36)
== END 2019-05-13 19:54 | disposition home or self-care (01) ==
LOC: M ED 15:22
DX: K70.31 Alcoholic cirrhosis of liver with ascites (principal)
CPT/HCPCS: 36415; 71046; 74177; 80048; 80076; 81001; 83605; 83690; 84702; 85025; 85610; 85730; 87040; 87086; 96360; 99284; Q9967

== ENCOUNTER 2019-05-14 14:23 | Emergency (ER) | payer OTHER ==
[~2019-05-14] VITALS: Ht 162.6 cm; Wt 56.1 kg
[~2019-05-14 14:23] MED LIST changes: +NARC1SPR
[2019-05-14] MEDS ORDERED: oxyCODONE 5MG TAB PO ONE (15:30)
[2019-05-14 15:48] LABS: BASO % 0.7 % (0.0-1.0); EOS # 0.1 10^3/uL (0.0-0.5); EOS % 2.3 % (0.0-3.0); HEMATOCRIT 28.5 % (36.0-47.0); HEMOGLOBIN 9.4 g/dl (12.0-15.5); LYMPH # 1.4 10^3/uL (1.5-5.0); LYMPH % 23.8 % (24.0-44.0); MEAN CORPUSCULAR HEMOGLOBIN 32.8 pg (27.0-33.0); MEAN CORPUSCULAR VOLUME 99.3 fl (80.0-96.0); MONO # 0.5 10^3/uL (0.0-0.8); MONO % 8.2 % (0.0-5.0); NEUTROPHILS # 3.9 10^3/uL (1.5-8.5); NEUTROPHILS % 64.7 % (36.0-66.0); PLATELET COUNT, AUTOMATED 156 10^3/uL (150-450); RED BLOOD COUNT 2.87 10^6/uL (4.00-5.40)
[2019-05-14 15:58] LABS: INR 2.11; PROTHROMBIN TIME 23.4 SECONDS (11.8-14.0)
[2019-05-14 15:59] LABS: PARTIAL THROMBOPLASTIN TIME 46.5 SECONDS (25.0-38.4)
[2019-05-14 16:26] LABS: ALBUMIN 2.4 GM/DL (3.2-5.2); ALT/SGPT 27 U/L (12-78); BILIRUBIN,DIRECT 1.4 MG/DL (0.0-0.2); BILIRUBIN,TOTAL 3.3 MG/DL (0.2-1.0); BLOOD UREA NITROGEN 4 MG/DL (7-18); CALCIUM LEVEL 8.9 MG/DL (8.5-10.1); CARBON DIOXIDE LEVEL 27 MEQ/L (21-32); CHLORIDE LEVEL 105 MEQ/L (98-107); CK-MB VALUE MASS < 1.0 NG/ML (<3.6); CPK CREATINE PHOSPHOKINASE 93 U/L (26-192); CREATININE FOR GFR 0.44 MG/DL (0.55-1.30); GLOMERULAR FILTRATION RATE > 60.0 (>60); GLUCOSE, FASTING 89 MG/DL (70-100); LIPASE 411 U/L (73-393); MB/CK RELATIVE INDEX 1.08 (< OR =4); POTASSIUM SERUM 4.2 MEQ/L (3.5-5.1); SODIUM LEVEL 138 MEQ/L (136-145); TROPONIN I < 0.02 NG/ML (< 0.10)
[2019-05-14 16:57] VITALS: BP 99/57
--- NOTE | 2019-05-14 17:09 | REP ---
Abdominal right upper quadrant ultrasound for right upper quadrant/left upper quadrant pain, reevaluate gallbladder, pancreatic fluid: Comparison is the abdomen/pelvis CT dated 05/13/2019. There is no cholelithiasis, however, there is gallbladder wall thickening measuring up to 5.9 mm. This is nonspecific and could represent a calculus cholecystitis. The finding is similar to the comparison CT. There is no intrahepatic or extrahepatic biliary duct dilatation. The common biliary duct measures up to 5.4 mm in diameter. The hepatic parenchyma is heterogeneous, compatible with diffuse hepatocellular disease. The liver is upper normal size measuring up to 16.4 cm craniocaudad in the midclavicular line. The main portal vein is upper normal transverse diameter measuring 12.3 mm. There is normal hepatopetal flow in the portal vein, toward the liver. The pancreatic fluid identified on the comparison CT is not identified by ultrasound today. The pancreas is otherwise unremarkable by ultrasound. The right kidney is normal size measuring 11.0 x 5.7 x 4.3 cm. There is no right renal calculus or hydronephrosis. There is no right renal solid or cystic mass. There is no right upper quadrant abdominal free fluid. Impression: Gallbladder wall thickening without cholelithiasis or pericholecystic fluid. This is nonspecific but may represent acalculous cholecystitis. There is no peripancreatic fluid. A para pancreatic fluid identified on the comparison CT is not identified by ultrasound today. The hepatic parenchyma is heterogeneous compatible with hepatocellular disease. The portal vein is upper normal transverse diameter with hepatopetal flow toward the liver. Electronically Signed by Gilbert De La O MD 05/14/2019 05:00 P
[2019-05-14] MEDS ORDERED: OXYC-517 PO (17:36)
[2019-05-14] MEDS ORDERED: ALPR0.25 PO (17:36)
== END 2019-05-14 17:54 | disposition home or self-care (01) ==
LOC: M ED 14:23
DX: R10.9 Unspecified abdominal pain (principal); F17.200 Nicotine dependence, unspecified, uncomplicated; Z79.899 Other long term (current) drug therapy

== ENCOUNTER 2019-05-21 22:34 | Emergency (ER) | payer OTHER ==
[~2019-05-21] VITALS: Ht 162.6 cm; Wt 56.4 kg
[2019-05-21] MEDS ORDERED: NEXP1IMP IM (22:52)
[2019-05-22] MEDS ORDERED: KETOROLAC 30 MG/ML VIAL (J1885) IV ONE (00:45)
[2019-05-22] MEDS ORDERED: ONDANSETRON 4MG/2ML VIAL (J2405) IV ONE (00:45)
[2019-05-22] MEDS ORDERED: NS 1,000 ML IV ONE (00:45)
[2019-05-22 01:13] LABS: BASO % 0.7 % (0.0-1.0); EOS # 0.2 10^3/uL (0.0-0.5); HEMATOCRIT 29.6 % (36.0-47.0); HEMOGLOBIN 9.6 g/dl (12.0-15.5); LYMPH # 1.7 10^3/uL (1.5-5.0); LYMPH % 29.9 % (24.0-44.0); MEAN CORPUSCULAR HEMOGLOBIN 32.4 pg (27.0-33.0); MEAN CORPUSCULAR HGB CONC 32.4 g/dl (32.0-36.5); MONO # 0.4 10^3/uL (0.0-0.8); MONO % 6.6 % (0.0-5.0); NEUTROPHILS # 3.4 10^3/uL (1.5-8.5); NEUTROPHILS % 59.6 % (36.0-66.0); PLATELET COUNT, AUTOMATED 165 10^3/uL (150-450); RED BLOOD COUNT 2.96 10^6/uL (4.00-5.40); WHITE BLOOD COUNT 5.7 10^3/uL (4.0-10.0)
[2019-05-22 01:33] LABS: ERYTHROCYTE SEDIMENTATION RATE 52 mm/hr (0-20)
[2019-05-22 01:43] LABS: ALBUMIN 2.4 GM/DL (3.2-5.2); BILIRUBIN,DIRECT 1.5 MG/DL (0.0-0.2); BILIRUBIN,TOTAL 3.3 MG/DL (0.2-1.0)
[2019-05-22 01:51] LABS: INR 2.01; PROTHROMBIN TIME 22.5 SECONDS (11.8-14.0)
[2019-05-22 01:52] LABS: PARTIAL THROMBOPLASTIN TIME 51.5 SECONDS (25.0-38.4)
[2019-05-22 02:45] VITALS: BP 108/56
[2019-05-22] MEDS ORDERED: LACT10SO29 PO (03:25)
--- NOTE | 2019-05-22 06:56 | REP ---
Clinical: Constipation and abdominal pain. Technique: Upright view of the chest with supine and upright views of the abdomen and pelvis. Findings: Frontal upright view of the chest demonstrates no acute cardiopulmonary process or free air below the diaphragm to suspect pneumoperitoneum. Supine and upright views of the abdomen and pelvis demonstrate nonspecific bowel gas pattern without obstruction or perforation. Mild fecal stasis cannot be excluded. No organomegaly. No abnormal calcifications. Skeletal structures normal for age. Impression: Nonspecific bowel gas pattern. Questionable fecal stasis. Electronically Signed by Demetrio Ramirez MD 05/22/2019 06:47 A
[2019-05-25 14:20] LABS: Lyme Disease IgG Ab 18 kDa Ban Absent (.); Lyme Disease IgG Ab 23 kDa Ban Absent (.); Lyme Disease IgG Ab 28 kDa Ban Absent (.); Lyme Disease IgG Ab 30 kDa Ban Absent (.); Lyme Disease IgG Ab 39 kDa Ban Absent (.); Lyme Disease IgG Ab 41 kDa Ban Absent (.); Lyme Disease IgG Ab 45 kDa Ban Absent (.); Lyme Disease IgG Ab 58 kDa Ban Absent (.); Lyme Disease IgG Ab 66 kDa Ban Absent (.); Lyme Disease IgG Ab 93 kDa Ban Absent (.); Lyme Disease IgG West Blot Int Negative (.); Lyme Disease IgG/IgM Antibodie <0.91 ISR (0.00-0.90); Lyme Disease IgM Ab 23 kDa Ban Present (.); Lyme Disease IgM Ab 39 kDa Ban Absent (.); Lyme Disease IgM Ab 41 kDa Ban Absent (.); Lyme Disease IgM Ab Quantitati 1.84 index (0.00-0.79); Lyme Disease IgM West Blot Int Negative (.)
== END 2019-05-22 03:40 | disposition home or self-care (01) ==
LOC: M ED 22:34
DX: K59.00 Constipation, unspecified (principal); K52.9 Noninfective gastroenteritis and colitis, unspecified; F17.200 Nicotine dependence, unspecified, uncomplicated; Z79.891 Long term (current) use of opiate analgesic; Z79.899 Other long term (current) drug therapy
CPT/HCPCS: 74021; 80047; 80076; 83690; 84702; 85025; 85610; 85652; 85730; 86617; 96361; 96374; 96375; 99284; J1885; J2405

== ENCOUNTER 2019-06-23 00:20 | Emergency (ER) | payer OTHER ==
[~2019-06-23] VITALS: Ht 162.6 cm; Wt 55.5 kg
[~2019-06-23 00:20] MED LIST changes: +LACT10SO29 PO; +NEXP1IMP IM
[2019-06-23 00:50] LABS: BASO % 0.8 % (0.0-1.0); EOS # 0.1 10^3/uL (0.0-0.5); HEMATOCRIT 26.1 % (36.0-47.0); HEMOGLOBIN 8.7 g/dl (12.0-15.5); LYMPH # 1.1 10^3/uL (1.5-5.0); LYMPH % 21.5 % (24.0-44.0); MEAN CORPUSCULAR HEMOGLOBIN 31.3 pg (27.0-33.0); MEAN CORPUSCULAR HGB CONC 33.3 g/dl (32.0-36.5); MEAN CORPUSCULAR VOLUME 93.9 fl (80.0-96.0); MONO # 0.4 10^3/uL (0.0-0.8); MONO % 7.2 % (0.0-5.0); NEUTROPHILS # 3.4 10^3/uL (1.5-8.5); NEUTROPHILS % 69.3 % (36.0-66.0); PLATELET COUNT, AUTOMATED 181 10^3/uL (150-450); RED BLOOD COUNT 2.78 10^6/uL (4.00-5.40); WHITE BLOOD COUNT 4.9 10^3/uL (4.0-10.0)
[2019-06-23 01:13] LABS: HCG, SERUM QUALITATIVE NEGATIVE (NEGATIVE)
[2019-06-23 01:28] LABS: ALBUMIN 2.7 GM/DL (3.2-5.2); ALT/SGPT 19 U/L (12-78); BILIRUBIN,TOTAL 2.5 MG/DL (0.2-1.0); BLOOD UREA NITROGEN 5 MG/DL (7-18); CALCIUM LEVEL 9.1 MG/DL (8.5-10.1); CARBON DIOXIDE LEVEL 20 MEQ/L (21-32); CHLORIDE LEVEL 109 MEQ/L (98-107); CREATININE FOR GFR 0.79 MG/DL (0.55-1.30); ETHYL ALCOHOL (ETHANOL) 0.004 % (0.000-0.010); GLOMERULAR FILTRATION RATE > 60.0 (>60); GLUCOSE, FASTING 163 MG/DL (70-100); LIPASE 141 U/L (73-393); POTASSIUM SERUM 3.3 MEQ/L (3.5-5.1); SODIUM LEVEL 139 MEQ/L (136-145); TOTAL PROTEIN 6.9 GM/DL (6.4-8.2)
[2019-06-23] MEDS ORDERED: ISOVUE-370 76% 100ML VIAL (Q9967) As Ordered ONE (01:35)
[2019-06-23] MEDS ORDERED: NS 1,000 ML IV ONE (01:45)
[2019-06-23] MEDS ORDERED: KETOROLAC 30 MG/ML 1ML VIAL (J1885 PER 15MG) IV ONE (02:00)
--- NOTE | 2019-06-23 02:02 | REPVR ---
PROCEDURE INFORMATION: Exam: CT Abdomen And Pelvis With Contrast Exam date and time: 06/23/2019 1:31 AM Age: 29 years old Clinical indication: Abdominal pain; Localized; Left lower quadrant (llq); Additional info: Llq pain TECHNIQUE: Imaging protocol: Computed tomography of the abdomen and pelvis with intravenous contrast. Radiation optimization: All CT scans at this facility use at least one of these dose optimization techniques: automated exposure control; mA and/or kV adjustment per patient size (includes targeted exams where dose is matched to clinical indication); or iterative reconstruction. Contrast material: ISO; Contrast volume: 100 ml; Contrast route: AC; COMPARISON: CT ABD/PEL W/IV CONTRAST ONLY 05/13/2019 5:32 PM FINDINGS: Liver: Steatosis. Gallbladder and bile ducts: Normal. No calcified stones. No ductal dilation. Pancreas: Normal. No ductal dilation. Spleen: Normal. No splenomegaly. Adrenals: Normal. No mass. Kidneys and ureters: Nonobstructing left renal calculus. No hydronephrosis. Stomach and bowel: Moderate amount of stool in the colon. Mild nonspecific bowel wall thickening involving multiple small bowel loops which may reflect under distension or enteritis. Correlate clinically. Appendix: No evidence of appendicitis. Intraperitoneal space: Trace free fluid in the cul-de-sac. Vasculature: Unremarkable. No abdominal aortic aneurysm. Lymph nodes: Unremarkable. No enlarged lymph nodes. Bladder: Distended urinary bladder. Reproductive: Unremarkable as visualized. Bones/joints: Unremarkable. No acute fracture. Soft tissues: Unremarkable. IMPRESSION: Mild nonspecific bowel wall thickening involving multiple small bowel loops which may reflect under distension or enteritis. Correlate clinically. Nonobstructing left renal calculus. No hydronephrosis. Paragraphs trace free fluid in the cul-de-sac. Steatosis. Moderate amount of stool in the colon. Constipation is considered. Electronically signed by: Fernando Weeks On 06/23/2019 02:01:41 AM
[2019-06-23 02:59] LABS: APPEARANCE, URINE CLEAR (CLEAR); BACTERIA, URINE AUTO NEGATIVE (NEGATIVE); BILIRUBIN, URINE AUTO NEGATIVE (NEGATIVE); BLOOD, URINE BLOOD NEGATIVE (NEGATIVE); COLOR, URINE YELLOW (YELLOW); GLUCOSE, URINE (UA) AUTO NEGATIVE (NEGATIVE); KETONE, URINE AUTO NEGATIVE (NEGATIVE); LEUKOCYTE ESTERASE, URINE AUTO NEGATIVE (NEGATIVE); MUCUS, URINE SMALL (NEGATIVE); NITRITE, URINE AUTO NEGATIVE (NEGATIVE); PROTEIN, URINE AUTO NEGATIVE (NEGATIVE); RBC, URINE AUTO 2 /HPF (0-3); SPECIFIC GRAVITY URINE AUTO 1.059 (1.002-1.035); SQUAMOUS EPITHELIAL CELL UR AU 10 /HPF (0-6); UROBILINOGEN, URINE AUTO 0.2 mg/dL (0.0-2.0); WBC, URINE AUTO 3 /HPF (0-3)
[2019-06-23 03:34] VITALS: BP 111/60
== END 2019-06-23 03:35 | disposition home or self-care (01) ==
LOC: M ED 00:20 → EDBD 00:20 → M ED 03:35
DX: K29.00 Acute gastritis without bleeding (principal); K70.10 Alcoholic hepatitis without ascites; K70.31 Alcoholic cirrhosis of liver with ascites; R10.9 Unspecified abdominal pain; G89.29 Other chronic pain; Z87.19 Personal history of other diseases of the digestive system; F17.200 Nicotine dependence, unspecified, uncomplicated; F10.10 Alcohol abuse, uncomplicated; Z79.891 Long term (current) use of opiate analgesic
CPT/HCPCS: 74177; 80048; 80076; 81001; 83690; 84703; 85025; 96374; 99284; G0480; J1885; Q9967

== ENCOUNTER 2019-07-16 20:09 | Emergency (ER) | payer OTHER ==
[~2019-07-16] VITALS: Ht 162.6 cm; Wt 63.5 kg
[2019-07-16 20:09] VITALS: BP 124/73
[2019-07-16] MEDS ORDERED: LIDOCAINE 2% JELLY 6 ML SYRINGE TOP ONE (20:45)
[2019-07-16] MEDS ORDERED: KETOROLAC TROMETHAMINE 10 MG TAB PO ONE (20:45)
[2019-07-16] MEDS ORDERED: NEOSPORIN OINT 0.9 GM PKT TOP ONE (21:00)
[2019-07-16] MEDS ORDERED: BACI500O21 TOP (21:01)
== END 2019-07-16 21:23 | disposition home or self-care (01) ==
LOC: M ED 20:09
DX: T23.201A Burn of second degree of right hand, unspecified site, initial encounter (principal); T31.10 Burns involving 10-19% of body surface with 0% to 9% third degree burns; X19.XXXA Contact with other heat and hot substances, initial encounter; Y92.018 Other place in single-family (private) house as the place of occurrence of the external cause; N18.9 Chronic kidney disease, unspecified; F33.9 Major depressive disorder, recurrent, unspecified; F41.9 Anxiety disorder, unspecified; K70.9 Alcoholic liver disease, unspecified; Z79.3 Long term (current) use of hormonal contraceptives; F17.210 Nicotine dependence, cigarettes, uncomplicated

== ENCOUNTER 2019-08-14 16:32 | Emergency (ER) | payer OTHER ==
[~2019-08-14] VITALS: Ht 162.6 cm; Wt 64.2 kg
[~2019-08-14 16:32] MED LIST changes: +BACI500O21 TOP; -LACT10SO29 PO; +LACT20EL PO
[2019-08-14] MEDS ORDERED: TIZA4TAB4 (16:40)
[2019-08-14 17:38] LABS: BASO % 0.8 % (0.0-1.0); EOS # 0.2 10^3/uL (0.0-0.5); EOS % 3.2 % (0.0-3.0); HEMATOCRIT 24.8 % (36.0-47.0); HEMOGLOBIN 7.6 g/dl (12.0-15.5); LYMPH # 1.2 10^3/uL (1.5-5.0); LYMPH % 24.8 % (24.0-44.0); MEAN CORPUSCULAR HEMOGLOBIN 26.2 pg (27.0-33.0); MEAN CORPUSCULAR HGB CONC 30.6 g/dl (32.0-36.5); MEAN CORPUSCULAR VOLUME 85.5 fl (80.0-96.0); MONO # 0.5 10^3/uL (0.0-0.8); MONO % 10.3 % (0.0-5.0); NEUTROPHILS # 2.9 10^3/uL (1.5-8.5); NEUTROPHILS % 60.5 % (36.0-66.0); PLATELET COUNT, AUTOMATED 208 10^3/uL (150-450); WHITE BLOOD COUNT 4.8 10^3/uL (4.0-10.0)
[2019-08-14 18:00] LABS: ALBUMIN 3.2 GM/DL (3.2-5.2); BILIRUBIN,DIRECT 0.6 MG/DL (0.0-0.2); BILIRUBIN,TOTAL 1.3 MG/DL (0.2-1.0); TOTAL PROTEIN 7.1 GM/DL (6.4-8.2)
[2019-08-14] MEDS ORDERED: ISOVUE-370 76% 100ML VIAL As Ordered ONE (18:49)
[2019-08-14] MEDS ORDERED: diazePAM 5 MG TAB PO ONE (19:00)
[2019-08-14] MEDS ORDERED: PANTOPRAZOLE 40MG VIAL (C9113 PER 1) IV ONE (19:15)
--- NOTE | 2019-08-14 19:26 | REPVR ---
PROCEDURE INFORMATION: Exam: CT Abdomen And Pelvis With Contrast Exam date and time: 08/14/2019 7:08 PM Age: 29 years old Clinical indication: Abdominal pain; Additional info: Hematemasis/pain TECHNIQUE: Imaging protocol: Computed tomography of the abdomen and pelvis with intravenous contrast. Radiation optimization: All CT scans at this facility use at least one of these dose optimization techniques: automated exposure control; mA and/or kV adjustment per patient size (includes targeted exams where dose is matched to clinical indication); or iterative reconstruction. Contrast material: ISO 370; Contrast volume: 100 ml; Contrast route: IV; COMPARISON: CT ABD/PEL W/IV CONTRAST ONLY 06/23/2019 1:39 AM FINDINGS: Liver: Again demonstrated is hepatomegaly associated with mild fatty infiltration of the liver. Prominent left and caudate lobes may suggest early cirrhotic morphology in the appropriate clinical setting. No focal lesions. Gallbladder and bile ducts: Normal. No calcified stones. No ductal dilation. Pancreas: Normal. No ductal dilation. Spleen: There is mild splenomegaly with a maximum span of 14 centimeters. No focal abnormalities demonstrated. Adrenals: Normal. No mass. Kidneys and ureters: Normal. No hydronephrosis. Stomach and bowel: More than typically expected vessels demonstrated in the gastric cardia and GE junction region, finding which may indicate the presence of varices. Appendix: No evidence of appendicitis. Intraperitoneal space: Unremarkable. No free air. No significant fluid collection. Vasculature: Unremarkable. No abdominal aortic aneurysm. Lymph nodes: Unremarkable. No enlarged lymph nodes. Bladder: Unremarkable as visualized. Reproductive: Unremarkable as visualized. Bones/joints: Unremarkable. No acute fracture. Soft tissues: Unremarkable. IMPRESSION: 1. There is mild splenomegaly with a maximum span of 14 centimeters. No focal abnormalities demonstrated. 2. Again demonstrated is hepatomegaly associated with mild fatty infiltration of the liver. Prominent left and caudate lobes may suggest early cirrhotic morphology in the appropriate clinical setting. No focal lesions. 3. More than typically expected vessels demonstrated in the gastric cardia and GE junction region, finding which may indicate the presence of varices. Electronically signed by: Kody Hernandez On 08/14/2019 19:25:46 PM
[2019-08-14] MEDS ORDERED: MORPHINE 4 MG/ML 1ML VIAL/SYRINGE (J2270) IV ONE (20:15)
[2019-08-14 21:33] VITALS: BP 122/80
== END 2019-08-14 21:37 | disposition short-term general hospital (02) ==
LOC: M ED 16:32
DX: I85.00 Esophageal varices without bleeding (principal); K92.0 Hematemesis; K76.9 Liver disease, unspecified; F33.9 Major depressive disorder, recurrent, unspecified; F41.9 Anxiety disorder, unspecified; Z79.899 Other long term (current) drug therapy; Z79.3 Long term (current) use of hormonal contraceptives; F17.210 Nicotine dependence, cigarettes, uncomplicated
CPT/HCPCS: 74177; 80047; 80076; 81001; 83690; 84702; 85025; 86850; 86900; 86901; 96374; 96375; 99284; C9113; J2270; Q9967

== ENCOUNTER 2019-08-19 20:00 | Emergency (ER) | payer OTHER ==
[~2019-08-19] VITALS: Ht 162.6 cm; Wt 59.1 kg
[~2019-08-19 20:00] MED LIST changes: +PANT40TA29 PO; -PANT40TA3 PO; +TIZA4TAB4 PO
[2019-08-19 20:56] LABS: BASO % 0.8 % (0.0-1.0); EOS # 0.2 10^3/uL (0.0-0.5); EOS % 3.6 % (0.0-3.0); HEMATOCRIT 33.3 % (36.0-47.0); HEMOGLOBIN 10.3 g/dl (12.0-15.5); LYMPH # 1.5 10^3/uL (1.5-5.0); LYMPH % 30.6 % (24.0-44.0); MEAN CORPUSCULAR HEMOGLOBIN 26.3 pg (27.0-33.0); MEAN CORPUSCULAR HGB CONC 30.9 g/dl (32.0-36.5); MEAN CORPUSCULAR VOLUME 85.2 fl (80.0-96.0); MONO # 0.5 10^3/uL (0.0-0.8); MONO % 9.9 % (0.0-5.0); NEUTROPHILS # 2.8 10^3/uL (1.5-8.5); NEUTROPHILS % 54.9 % (36.0-66.0); PLATELET COUNT, AUTOMATED 191 10^3/uL (150-450); RED BLOOD COUNT 3.91 10^6/uL (4.00-5.40)
[2019-08-19] MEDS ORDERED: ONDANSETRON 4MG/2ML VIAL IV ONE (21:00)
[2019-08-19] MEDS ORDERED: KETOROLAC 30 MG/ML 1ML VIAL IV ONE (21:00)
[2019-08-19 21:17] LABS: ALBUMIN 3.4 GM/DL (3.2-5.2); ALT/SGPT 33 U/L (12-78); BILIRUBIN,DIRECT 0.4 MG/DL (0.0-0.2); BILIRUBIN,TOTAL 1.1 MG/DL (0.2-1.0); LIPASE 202 U/L (73-393); TOTAL PROTEIN 7.3 GM/DL (6.4-8.2)
[2019-08-19 21:18] LABS: ETHYL ALCOHOL (ETHANOL) < 0.003 % (0.000-0.010)
[2019-08-19] MEDS ORDERED: ISOVUE-370 76% 100ML VIAL As Ordered ONE (21:28)
--- NOTE | 2019-08-19 21:59 | REPVR ---
PROCEDURE INFORMATION: Exam: CT Abdomen And Pelvis With Contrast Exam date and time: 08/19/2019 9:44 PM Age: 29 years old Clinical indication: Abdominal pain; Localized; Right lower quadrant (rlq); Additional info: Rlq pain/hx alc hepatitis TECHNIQUE: Imaging protocol: Computed tomography of the abdomen and pelvis with intravenous contrast. Axial, coronal and sagittal reformatted images were created and reviewed. Radiation optimization: All CT scans at this facility use at least one of these dose optimization techniques: automated exposure control; mA and/or kV adjustment per patient size (includes targeted exams where dose is matched to clinical indication); or iterative reconstruction. Contrast material: ISOVUE 370; Contrast volume: 100 ml; Contrast route: IV; COMPARISON: CT ABD/PEL W/IV CONTRAST ONLY 08/14/2019 7:04 PM FINDINGS: Mediastinal space: Small hiatal hernia and mild nonspecific distal esophageal wall thickening, suggesting chronic reflux/esophagitis. Liver: Unremarkable. Gallbladder and bile ducts: Questionable mild gallbladder wall thickening, likely reactive. No radiodense gallstones. Pancreas: Unremarkable. Spleen: Mild splenomegaly. Adrenals: Unremarkable. Kidneys and ureters: Punctate non-obstructing left renal calculus. No hydronephrosis. Stomach and bowel: No bowel wall thickening. No obstruction. No pneumatosis. Appendix: Normal. Intraperitoneal space: Trace nonspecific free pelvic fluid, likely physiologic. No organized fluid collection. No free air. Vasculature: Unremarkable. No aneurysm. Lymph nodes: No pathologically enlarged lymph nodes. Bladder: Mild circumferential urinary bladder wall thickening, likely secondary to underdistention. Reproductive: Unremarkable. Bones/joints: No acute osseous abnormality. Soft tissues: Unremarkable. IMPRESSION: 1. No CT evidence of acute intra-abdominal or pelvic pathology. 2. Additional findings, as above. Electronically signed by: Alec Godinez On 08/19/2019 21:58:50 PM
[2019-08-19] MEDS ORDERED: traMADol 50 MG TAB (BULK 4 TAB ED) PO ONE (22:45)
[2019-08-19] MEDS ORDERED: POTASSIUM CHLORIDE 10 MEQ SR TABLET PO ONE (22:45)
[2019-08-19 23:00] VITALS: BP 116/72
--- NOTE | 2019-08-20 21:25 | ECGEPIP ---
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
== END 2019-08-19 23:08 | disposition home or self-care (01) ==
LOC: M ED 20:00
DX: R10.9 Unspecified abdominal pain (principal); E87.6 Hypokalemia; K70.10 Alcoholic hepatitis without ascites; Z79.899 Other long term (current) drug therapy; Z79.3 Long term (current) use of hormonal contraceptives
CPT/HCPCS: 36415; 74177; 80047; 80076; 81001; 83690; 84702; 85025; 93005; 96374; 96375; 99284; G0480; J1885; J2405; Q9967

== ENCOUNTER 2019-08-26 21:48 | Emergency (ER) | payer OTHER ==
[~2019-08-26] VITALS: Ht 162.6 cm; Wt 57.7 kg
[~2019-08-26 21:48] MED LIST changes: -PANT40TA29 PO; +PANT40TA3 PO
[2019-08-26] MEDS ORDERED: PANTOPRAZOLE 40MG VIAL (C9113 PER 1) IV ONE (22:15)
[2019-08-26] MEDS ORDERED: SUCRALFATE 1 GM TAB PO ONE (22:15)
[2019-08-26] MEDS ORDERED: NS 1,000 ML IV ONE (22:15)
[2019-08-26 22:43] LABS: BASO # 0.1 10^3/uL (0.0-0.2); BASO % 1.1 % (0.0-1.0); EOS # 0.1 10^3/uL (0.0-0.5); EOS % 3.1 % (0.0-3.0); HEMATOCRIT 29.5 % (36.0-47.0); HEMOGLOBIN 9.2 g/dl (12.0-15.5); LYMPH # 1.4 10^3/uL (1.5-5.0); LYMPH % 29.5 % (24.0-44.0); MEAN CORPUSCULAR HEMOGLOBIN 26.1 pg (27.0-33.0); MEAN CORPUSCULAR HGB CONC 31.2 g/dl (32.0-36.5); MEAN CORPUSCULAR VOLUME 83.8 fl (80.0-96.0); MONO # 0.6 10^3/uL (0.0-0.8); MONO % 12.9 % (0.0-5.0); NEUTROPHILS # 2.4 10^3/uL (1.5-8.5); NEUTROPHILS % 53.4 % (36.0-66.0); PLATELET COUNT, AUTOMATED 179 10^3/uL (150-450); RED BLOOD COUNT 3.52 10^6/uL (4.00-5.40); WHITE BLOOD COUNT 4.6 10^3/uL (4.0-10.0)
[2019-08-26 22:54] LABS: INR 1.49; PROTHROMBIN TIME 17.7 SECONDS (11.8-14.0)
[2019-08-26 23:20] LABS: ALBUMIN 3.2 GM/DL (3.2-5.2); ALT/SGPT 28 U/L (12-78); BILIRUBIN,DIRECT 0.5 MG/DL (0.0-0.2); BILIRUBIN,TOTAL 1.3 MG/DL (0.2-1.0); BLOOD UREA NITROGEN 6 MG/DL (7-18); CARBON DIOXIDE LEVEL 28 MEQ/L (21-32); CHLORIDE LEVEL 106 MEQ/L (98-107); CREATININE FOR GFR 0.68 MG/DL (0.55-1.30); ETHYL ALCOHOL (ETHANOL) < 0.003 % (0.000-0.010); GLOMERULAR FILTRATION RATE > 60.0 (>60); GLUCOSE, FASTING 79 MG/DL (70-100); LIPASE 183 U/L (73-393); POTASSIUM SERUM 3.2 MEQ/L (3.5-5.1); SODIUM LEVEL 143 MEQ/L (136-145); TOTAL PROTEIN 6.9 GM/DL (6.4-8.2)
[2019-08-26] MEDS ORDERED: PROT1TAB2 PO (23:33)
[2019-08-26] MEDS ORDERED: MIRA3350 PO (23:35)
[2019-08-27 00:27] VITALS: BP 111/60
--- NOTE | 2019-08-27 12:05 | REP ---
REASON: Abdominal pain. COMPARISON: 05/22/2019 The frontal view of the chest is unchanged and within normal limits. There is no free subdiaphragmatic air. The intestinal gas pattern is nonspecific. There are a few gas-filled nondilated loops in the left abdomen. There is no intestinal obstruction. The stool pattern is within normal limits. There is no changed in the osseous structures. IMPRESSION: Nonspecific abdominal series as described above. Electronically Signed by Darien Robertson DO 08/27/2019 12:44 P
== END 2019-08-27 00:27 | disposition home or self-care (01) ==
LOC: M ED 21:48
DX: K59.00 Constipation, unspecified (principal); K92.2 Gastrointestinal hemorrhage, unspecified; K75.9 Inflammatory liver disease, unspecified; K74.60 Unspecified cirrhosis of liver; Z79.899 Other long term (current) drug therapy; Z79.3 Long term (current) use of hormonal contraceptives
CPT/HCPCS: 74021; 80048; 80076; 83690; 85025; 85610; 99284; C9113; G0480

== ENCOUNTER 2019-09-01 08:00 | Emergency (ER) | payer OTHER ==
[~2019-09-01] VITALS: Ht 162.6 cm; Wt 63.5 kg
[~2019-09-01 08:00] MED LIST changes: +MIRA3350 PO; +PROT1TAB2 PO
[2019-09-01] MEDS ORDERED: MORPHINE 4 MG/ML 1ML VIAL/SYRINGE (J2270) IV ONE (08:30)
[2019-09-01] MEDS ORDERED: NS 1,000 ML IV ONE (08:30)
[2019-09-01] MEDS ORDERED: ONDANSETRON 4MG/2ML VIAL IV ONE (08:30)
[2019-09-01 08:50] LABS: BASO # 0.1 10^3/uL (0.0-0.2); BASO % 1.1 % (0.0-1.0); EOS # 0.2 10^3/uL (0.0-0.5); EOS % 3.9 % (0.0-3.0); HEMATOCRIT 31.7 % (36.0-47.0); HEMOGLOBIN 9.6 g/dl (12.0-15.5); LYMPH # 1.4 10^3/uL (1.5-5.0); LYMPH % 26.1 % (24.0-44.0); MEAN CORPUSCULAR HEMOGLOBIN 25.7 pg (27.0-33.0); MEAN CORPUSCULAR HGB CONC 30.3 g/dl (32.0-36.5); MEAN CORPUSCULAR VOLUME 84.8 fl (80.0-96.0); MONO # 0.5 10^3/uL (0.0-0.8); MONO % 9.7 % (0.0-5.0); NEUTROPHILS # 3.2 10^3/uL (1.5-8.5); NEUTROPHILS % 58.6 % (36.0-66.0); PLATELET COUNT, AUTOMATED 199 10^3/uL (150-450); RED BLOOD COUNT 3.74 10^6/uL (4.00-5.40); WHITE BLOOD COUNT 5.5 10^3/uL (4.0-10.0)
[2019-09-01 09:15] LABS: ALBUMIN 3.5 GM/DL (3.2-5.2); BILIRUBIN,DIRECT 0.6 MG/DL (0.0-0.2); BILIRUBIN,TOTAL 1.7 MG/DL (0.2-1.0); TOTAL PROTEIN 7.8 GM/DL (6.4-8.2)
[2019-09-01 09:17] LABS: INR 1.41
--- NOTE | 2019-09-01 10:36 | REP ---
Clinical: Epigastric and abdominal pain. Technique: Upright view of the chest with supine and upright views of the abdomen and pelvis. Findings: Frontal upright view of the chest demonstrates no acute cardiopulmonary process or free air below the diaphragm to suspect pneumoperitoneum. Supine and upright views of the abdomen and pelvis demonstrate nonspecific bowel gas pattern without obstruction or perforation. No organomegaly. No abnormal calcifications. Skeletal structures normal for age. Impression: Nonspecific bowel gas pattern. Electronically Signed by Demetrio Ramirez MD 09/01/2019 10:27 A
[2019-09-01] MEDS ORDERED: GI COCKTAIL 50ML BTL(HYOSCYAMINE/MAALOX/LIDOCAINE VISCOUS)(1:3:1) PO ONE (11:00)
[2019-09-01 11:42] VITALS: BP 119/57
[2019-09-01] MEDS ORDERED: SUCRALFATE 1 GM TAB PO ONE (11:45)
[2019-09-01] MEDS ORDERED: CARA1TAB6 PO (11:51)
[2019-09-01] MEDS ORDERED: PROT1TAB2 PO (11:51)
[2019-09-02] MEDS ORDERED: REGL10TA6 PO (05:51)
[2019-09-02] MEDS ORDERED: OMEP40CA97 PO (05:51)
== END 2019-09-01 12:00 | disposition home or self-care (01) ==
LOC: M ED 08:00
DX: K29.00 Acute gastritis without bleeding (principal); K70.30 Alcoholic cirrhosis of liver without ascites; F41.9 Anxiety disorder, unspecified; Z79.899 Other long term (current) drug therapy; Z79.3 Long term (current) use of hormonal contraceptives; F17.210 Nicotine dependence, cigarettes, uncomplicated

== ENCOUNTER 2019-09-01 23:51 | Emergency (ER) | payer OTHER ==
[~2019-09-01] VITALS: Ht 162.6 cm; Wt 63.8 kg
[~2019-09-01 23:51] MED LIST changes: +CARA1TAB6 PO
[2019-09-02] MEDS ORDERED: ONDANSETRON 4MG/2ML VIAL IV ONE (00:45)
[2019-09-02] MEDS ORDERED: GI COCKTAIL 50ML BTL(HYOSCYAMINE/MAALOX/LIDOCAINE VISCOUS)(1:3:1) PO ONE (00:45)
[2019-09-02 00:48] LABS: BASO # 0.1 10^3/uL (0.0-0.2); BASO % 1.1 % (0.0-1.0); EOS # 0.2 10^3/uL (0.0-0.5); EOS % 2.8 % (0.0-3.0); HEMATOCRIT 29.7 % (36.0-47.0); LYMPH # 1.8 10^3/uL (1.5-5.0); LYMPH % 27.5 % (24.0-44.0); MEAN CORPUSCULAR HEMOGLOBIN 25.9 pg (27.0-33.0); MEAN CORPUSCULAR HGB CONC 30.3 g/dl (32.0-36.5); MEAN CORPUSCULAR VOLUME 85.6 fl (80.0-96.0); MONO # 0.5 10^3/uL (0.0-0.8); MONO % 7.8 % (0.0-5.0); NEUTROPHILS # 3.9 10^3/uL (1.5-8.5); NEUTROPHILS % 60.5 % (36.0-66.0); PLATELET COUNT, AUTOMATED 185 10^3/uL (150-450); RED BLOOD COUNT 3.47 10^6/uL (4.00-5.40); WHITE BLOOD COUNT 6.4 10^3/uL (4.0-10.0)
[2019-09-02] MEDS ORDERED: ISOVUE-370 76% 100ML VIAL As Ordered ONE (01:10)
[2019-09-02 01:12] LABS: ALBUMIN 3.7 GM/DL (3.2-5.2); ALT/SGPT 24 U/L (12-78); BILIRUBIN,DIRECT 0.7 MG/DL (0.0-0.2); BILIRUBIN,TOTAL 1.8 MG/DL (0.2-1.0); ETHYL ALCOHOL (ETHANOL) < 0.003 % (0.000-0.010); LIPASE 168 U/L (73-393); TOTAL PROTEIN 7.8 GM/DL (6.4-8.2)
--- NOTE | 2019-09-02 01:36 | REPVR ---
PROCEDURE INFORMATION: Exam: CT Abdomen And Pelvis With Contrast Exam date and time: 09/02/2019 1:28 AM Age: 29 years old Clinical indication: Abdominal pain; Epigastric; Additional info: Epigastric pain, vomiting TECHNIQUE: Imaging protocol: Computed tomography of the abdomen and pelvis with intravenous contrast. Radiation optimization: All CT scans at this facility use at least one of these dose optimization techniques: automated exposure control; mA and/or kV adjustment per patient size (includes targeted exams where dose is matched to clinical indication); or iterative reconstruction. Contrast material: ISOVUE 370; Contrast volume: 100 ml; Contrast route: INTRAVENOUS (IV); COMPARISON: CT ABD/PEL W/IV CONTRAST ONLY 08/19/2019 9:28 PM FINDINGS: Liver: Normal. No mass. Gallbladder and bile ducts: Normal. No calcified stones. No ductal dilation. Pancreas: Normal. No ductal dilation. Spleen: Mild splenomegaly. Adrenals: Normal. No mass. Kidneys and ureters: Normal. No hydronephrosis. Stomach and bowel: Small sliding-type gastric hiatal hernia. Copious stool in the colon. No abnormal bowel dilatation. Negative for colonic diverticulitis. Segmental thickening of the right colon. Appendix: No evidence of appendicitis. Intraperitoneal space: Tiny free fluid in the cul-de-sac. No free air. Vasculature: Unremarkable. No abdominal aortic aneurysm. Lymph nodes: Unremarkable. No enlarged lymph nodes. Bladder: Unremarkable as visualized. Reproductive: Uterus is normal. Bones/joints: Unremarkable. No acute fracture. Soft tissues: Unremarkable. IMPRESSION: 1. Segmental thickening of the right colon. Consistent with infectious versus inflammatory colitis. 2. Small sliding-type gastric hiatal hernia. 3. Mild splenomegaly. Electronically signed by: Elva Martinez On 09/02/2019 01:36:15 AM
[2019-09-02] MEDS ORDERED: PANTOPRAZOLE 40MG VIAL (C9113 PER 1) IV ONE (04:45)
[2019-09-02] MEDS ORDERED: SUCRALFATE 1 GM TAB PO ONE (04:45)
[2019-09-02] MEDS ORDERED: REGL10TA6 PO (05:51)
[2019-09-02] MEDS ORDERED: OMEP40CA97 PO (05:51)
[2019-09-02 06:27] VITALS: BP 107/68
== END 2019-09-02 06:31 | disposition home or self-care (01) ==
LOC: M ED 23:51
DX: K44.9 Diaphragmatic hernia without obstruction or gangrene (principal); K70.30 Alcoholic cirrhosis of liver without ascites; Z79.899 Other long term (current) drug therapy; Z79.3 Long term (current) use of hormonal contraceptives; F17.210 Nicotine dependence, cigarettes, uncomplicated
CPT/HCPCS: 74021; 74177; 80047; 80076; 81001; 82150; 83690; 84702; 85025; 85610; 85730; 96361; 96374; 96375; 99284; C9113; G0480; J2270; J2405; Q9967

== ENCOUNTER 2019-09-18 21:04 | Emergency (ER) | payer OTHER ==
[~2019-09-18] VITALS: Ht 162.6 cm; Wt 56.8 kg
[~2019-09-18 21:04] MED LIST changes: +OMEP40CA97 PO; +PANT40TA29 PO; -PANT40TA3 PO; +REGL10TA6 PO
[2019-09-18] MEDS ORDERED: NS 1,000 ML IV ONE (21:45)
[2019-09-18 21:54] LABS: BASO # 0.1 10^3/uL (0.0-0.2); BASO % 1.1 % (0.0-1.0); EOS # 0.1 10^3/uL (0.0-0.5); EOS % 1.8 % (0.0-3.0); HEMATOCRIT 30.2 % (36.0-47.0); HEMOGLOBIN 9.3 g/dl (12.0-15.5); LYMPH # 0.8 10^3/uL (1.5-5.0); LYMPH % 18.3 % (24.0-44.0); MEAN CORPUSCULAR HEMOGLOBIN 24.9 pg (27.0-33.0); MEAN CORPUSCULAR HGB CONC 30.8 g/dl (32.0-36.5); MEAN CORPUSCULAR VOLUME 80.7 fl (80.0-96.0); MONO # 0.4 10^3/uL (0.0-0.8); MONO % 9.6 % (0.0-5.0); NEUTROPHILS # 3.1 10^3/uL (1.5-8.5); PLATELET COUNT, AUTOMATED 218 10^3/uL (150-450); RED BLOOD COUNT 3.74 10^6/uL (4.00-5.40); WHITE BLOOD COUNT 4.5 10^3/uL (4.0-10.0)
[2019-09-18 21:58] LABS: INR 1.55; PARTIAL THROMBOPLASTIN TIME 36.8 SECONDS (25.0-38.4); PROTHROMBIN TIME 18.3 SECONDS (11.8-14.0)
[2019-09-18 22:03] LABS: HCG, SERUM QUALITATIVE NEGATIVE (NEGATIVE)
[2019-09-18 22:04] LABS: ALBUMIN 3.7 GM/DL (3.2-5.2); ALT/SGPT 21 U/L (12-78); BILIRUBIN,DIRECT 0.5 MG/DL (0.0-0.2); BILIRUBIN,TOTAL 1.2 MG/DL (0.2-1.0); BLOOD UREA NITROGEN 6 MG/DL (7-18); CALCIUM LEVEL 9.6 MG/DL (8.5-10.1); CARBON DIOXIDE LEVEL 25 MEQ/L (21-32); CHLORIDE LEVEL 105 MEQ/L (98-107); CREATININE FOR GFR 0.93 MG/DL (0.55-1.30); GLOMERULAR FILTRATION RATE > 60.0 (>60); GLUCOSE, FASTING 102 MG/DL (70-100); SODIUM LEVEL 141 MEQ/L (136-145); TOTAL PROTEIN 8.1 GM/DL (6.4-8.2)
[2019-09-18] MEDS ORDERED: ISOVUE-370 76% 100ML VIAL As Ordered ONE (22:06)
[2019-09-18] MEDS ORDERED: POTASSIUM CHLORIDE 10 MEQ SR TABLET PO ONE (22:45)
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
[2019-09-19 00:15] VITALS: BP 106/60
--- NOTE | 2019-09-19 13:20 | ED PDOC ---
Post-Departure Follow-Up ft jamaal romero faxed formal report of ct abd/p for fu Felix Moctezuma MD Sep 19, 2019 13:20
--- NOTE | 2019-09-19 17:44 | ECGEPIP ---
[facility] - ED Test Date: 2019-09-18 Pat Name: AVIVA MAIER Department: Room: - Gender: Female Loader: lr : 1990 Requested By: HEATHER Benton Order Number: [id number] Reading MD: Leta Meraz Measurements Intervals [place] Rate: 126 P: 38 AR: 147 QRS: -11 QRSD: 94 T: 18 QT: 316 QTc: 459 Interpretive Statements SINUS TACHYCARDIA POSSIBLE RIGHT VENTRICULAR CONDUCTION DELAY ST DEVIATION AND MODERATE T-WAVE ABNORMALITY, CONSIDER ISCHEMIA INCREASED RATE 08/19/19 Electronically Signed on 09-19-2019 17:44:12 EDT by Leta Meraz
== END 2019-09-19 00:43 | disposition home or self-care (01) ==
LOC: M ED 21:04
DX: S00.81XA Abrasion of other part of head, initial encounter (principal); T76.11XA Adult physical abuse, suspected, initial encounter; Y07.499 Other family member, perpetrator of maltreatment and neglect; Y04.8XXA Assault by other bodily force, initial encounter; Y92.89 Other specified places as the place of occurrence of the external cause; F31.9 Bipolar disorder, unspecified; F10.10 Alcohol abuse, uncomplicated; K74.60 Unspecified cirrhosis of liver; Z79.899 Other long term (current) drug therapy; Z79.3 Long term (current) use of hormonal contraceptives; F17.210 Nicotine dependence, cigarettes, uncomplicated
CPT/HCPCS: 70450; 70486; 71260; 72125; 74177; 80048; 80076; 84703; 85025; 85610; 85730; 93005; 93041; 94760; 96360; 96361; 99285; Q9967

== ENCOUNTER → 2019-09-20 | Outpatient (CLI) | payer OTHER ==
[~2019-09-20] MED LIST changes: +BUPR75TA5 PO; +CIPR-249 PO; +CIPR500T3 PO; +CIPR5SUS PO; +GABA-845 PO; +HEAL1TAB6 PO; +METR-265 PO; +OMEP-218 PO; +ONDA4TAB6 PO; +PATIENT COMMENT; +ZZZQ25CA PO; +[UNRECOGNIZED DRUG - OTHER] PO
--- NOTE | 2019-09-20 08:04 | REPVR ---
PROCEDURE INFORMATION: Exam: MR Lumbar Spine Without Contrast. Exam date and time: 09/20/2019 7:21 AM Age: 29 years old Clinical indication: Pain; Lumbago; Additional info: Lumbar radiculopathy TECHNIQUE: Imaging protocol: Multiplanar magnetic resonance images of the lumbar spine without intravenous contrast. COMPARISON: No relevant prior studies available. FINDINGS: Vertebrae: Unremarkable. Spinal cord: Normal signal. No cord compression. L1-L2: No significant disc disease. No significant spinal canal stenosis. No neural foraminal stenosis. L2-L3: No significant disc disease. No significant spinal canal stenosis. No neural foraminal stenosis. L3-L4: No significant disc disease. No significant spinal canal stenosis. No neural foraminal stenosis. L4-L5: No significant disc disease. No significant spinal canal stenosis. No neural foraminal stenosis. L5-S1: No significant disc disease. No significant spinal canal stenosis. No neural foraminal stenosis. Soft tissues: Unremarkable. IMPRESSION: Unremarkable lumbar spine MRI with no evidence of disc bulge or herniation. Electronically signed by: Jarvis Cleveland On 09/20/2019 08:04:17 AM
== END ==
LOC: M RAD 06:36
PROVIDERS: ATTEND Pain Medicine Interventional Pain Medicine
DX: M54.16 Radiculopathy, lumbar region (principal)

== ENCOUNTER 2019-10-10 21:15 | Emergency (ER) | payer OTHER ==
[~2019-10-10 21:15] MED LIST changes: -BUPR75TA5 PO; -CIPR-249 PO; -CIPR500T3 PO; -CIPR5SUS PO; -GABA-845 PO; -HEAL1TAB6 PO; -METR-265 PO; -OMEP-218 PO; -ONDA4TAB6 PO; -PATIENT COMMENT; -ZZZQ25CA PO; -[UNRECOGNIZED DRUG - OTHER] PO
[2019-10-10] MEDS ORDERED: ONDANSETRON 4MG/2ML VIAL As Ordered ONE (23:35)
[2019-10-10] MEDS ORDERED: MORPHINE 2 MG/ML 1ML VIAL (J2270) As Ordered ONE (23:36)
[2019-10-11] MEDS ORDERED: ISOVUE-370 76% 100ML VIAL As Ordered ONE (00:51)
[2019-10-11] MEDS ORDERED: diphenhydrAMINE 50MG/ML VIAL (J1200) As Ordered ONE (01:13)
[2019-10-11] MEDS ORDERED: methylPREDNISolone 125MG 2ML VIAL As Ordered ONE (01:18)
[2019-10-11] MEDS ORDERED: LORazepam 2 MG TAB As Ordered ONE (01:46)
[2019-11-25 11:04] LABS: APPEARANCE, URINE HAZY (CLEAR); BACTERIA, URINE AUTO 1+ (NEGATIVE); BILIRUBIN, URINE AUTO NEGATIVE (NEGATIVE); BLOOD, URINE BLOOD NEGATIVE (NEGATIVE); COLOR, URINE YELLOW (YELLOW); GLUCOSE, URINE (UA) AUTO NEGATIVE (NEGATIVE); KETONE, URINE AUTO TRACE mg/dL (NEGATIVE); LEUKOCYTE ESTERASE, URINE AUTO NEGATIVE (NEGATIVE); MUCUS, URINE SMALL (NEGATIVE); NITRITE, URINE AUTO NEGATIVE (NEGATIVE); PROTEIN, URINE AUTO NEGATIVE (NEGATIVE); RBC, URINE AUTO 1 /HPF (0-3); SPECIFIC GRAVITY URINE AUTO 1.017 (1.002-1.035); SQUAMOUS EPITHELIAL CELL UR AU 6 /HPF (0-6); UROBILINOGEN, URINE AUTO 0.2 mg/dL (0.0-2.0); WBC, URINE AUTO 1 /HPF (0-3)
[2019-11-25 11:44] LABS: BASO # 0.1 10^3/uL (0.0-0.2); BASO % 1.3 % (0.0-1.0); EOS # 0.2 10^3/uL (0.0-0.5); EOS % 3.8 % (0.0-3.0); HEMATOCRIT 28.9 % (36.0-47.0); HEMOGLOBIN 8.9 g/dl (12.0-15.5); LYMPH # 1.4 10^3/uL (1.5-5.0); LYMPH % 28.8 % (24.0-44.0); MEAN CORPUSCULAR HEMOGLOBIN 23.7 pg (27.0-33.0); MEAN CORPUSCULAR HGB CONC 30.8 g/dl (32.0-36.5); MEAN CORPUSCULAR VOLUME 77.1 fl (80.0-96.0); MONO # 0.5 10^3/uL (0.0-0.8); MONO % 10.1 % (0.0-5.0); NEUTROPHILS # 2.7 10^3/uL (1.5-8.5); NEUTROPHILS % 55.8 % (36.0-66.0); PLATELET COUNT, AUTOMATED 204 10^3/uL (150-450); RED BLOOD COUNT 3.75 10^6/uL (4.00-5.40); WHITE BLOOD COUNT 4.8 10^3/uL (4.0-10.0)
[2020-01-04 14:21] LABS: ALBUMIN 3.7 GM/DL (3.2-5.2); ALT/SGPT 22 U/L (12-78); AMYLASE 63 U/L (25-115); BILIRUBIN,DIRECT 0.4 MG/DL (0.0-0.2); BILIRUBIN,TOTAL 1.2 MG/DL (0.2-1.0); BLOOD UREA NITROGEN 5 MG/DL (7-18); CALCIUM LEVEL 9.2 MG/DL (8.5-10.1); CARBON DIOXIDE LEVEL 23 MEQ/L (21-32); CHLORIDE LEVEL 109 MEQ/L (98-107); CREATININE FOR GFR 0.65 MG/DL (0.55-1.30); GLOMERULAR FILTRATION RATE > 60.0 (>60); GLUCOSE, FASTING 114 MG/DL (70-100); HCG, SERUM QUALITATIVE NEGATIVE (NEGATIVE); LIPASE 139 U/L (73-393); POTASSIUM SERUM 3.6 MEQ/L (3.5-5.1); SODIUM LEVEL 139 MEQ/L (136-145); TOTAL PROTEIN 7.7 GM/DL (6.4-8.2)
== END 2019-10-11 02:20 | disposition home or self-care (01) ==
LOC: M ED 21:15
DX: N83.201 Unspecified ovarian cyst, right side (principal); F31.9 Bipolar disorder, unspecified; G89.29 Other chronic pain; M54.9 Dorsalgia, unspecified; K27.9 Peptic ulcer, site unspecified, unspecified as acute or chronic, without hemorrhage or perforation; K59.31 Toxic megacolon; Z79.3 Long term (current) use of hormonal contraceptives; Z88.8 Allergy status to other drugs, medicaments and biological substances; F17.210 Nicotine dependence, cigarettes, uncomplicated
CPT/HCPCS: 74177; 80048; 80076; 81001; 82150; 83690; 84703; 85025; 87086; 96374; 96375; 99283; J1200; J2270; J2405; J2930; Q9967

== ENCOUNTER 2019-11-07 20:21 | Emergency (ER) | payer OTHER ==
[~2019-11-07] VITALS: Ht 162.6 cm; Wt 68.5 kg
[2019-11-07 20:59] LABS: BASO % 0.8 % (0.0-1.0); EOS # 0.1 10^3/uL (0.0-0.5); EOS % 3.6 % (0.0-3.0); HEMATOCRIT 27.3 % (36.0-47.0); HEMOGLOBIN 8.1 g/dl (12.0-15.5); LYMPH # 1.1 10^3/uL (1.5-5.0); MEAN CORPUSCULAR HEMOGLOBIN 22.1 pg (27.0-33.0); MEAN CORPUSCULAR HGB CONC 29.7 g/dl (32.0-36.5); MEAN CORPUSCULAR VOLUME 74.4 fl (80.0-96.0); MONO # 0.4 10^3/uL (0.0-0.8); MONO % 10.2 % (0.0-5.0); NEUTROPHILS # 2.2 10^3/uL (1.5-8.5); NEUTROPHILS % 55.9 % (36.0-66.0); PLATELET COUNT, AUTOMATED 181 10^3/uL (150-450); RED BLOOD COUNT 3.67 10^6/uL (4.00-5.40); WHITE BLOOD COUNT 3.9 10^3/uL (4.0-10.0)
[2019-11-07 21:27] LABS: ALBUMIN 3.4 GM/DL (3.2-5.2); ALT/SGPT 20 U/L (12-78); BILIRUBIN,DIRECT 0.3 MG/DL (0.0-0.2); BILIRUBIN,TOTAL 0.8 MG/DL (0.2-1.0); BLOOD UREA NITROGEN 5 MG/DL (7-18); CALCIUM LEVEL 8.7 MG/DL (8.5-10.1); CARBON DIOXIDE LEVEL 24 MEQ/L (21-32); CHLORIDE LEVEL 107 MEQ/L (98-107); CREATININE FOR GFR 0.85 MG/DL (0.55-1.30); GLOMERULAR FILTRATION RATE > 60.0 (>60); GLUCOSE, FASTING 192 MG/DL (70-100); LIPASE 122 U/L (73-393); POTASSIUM SERUM 3.1 MEQ/L (3.5-5.1); SODIUM LEVEL 140 MEQ/L (136-145); TOTAL PROTEIN 6.9 GM/DL (6.4-8.2)
[2019-11-07] MEDS ORDERED: NS 1,000 ML IV ONE (21:30)
[2019-11-07] MEDS ORDERED: DICYCLOMINE 10 MG CAP PO ONE (21:30)
[2019-11-07 21:51] LABS: HCG, SERUM QUALITATIVE NEGATIVE (NEGATIVE)
[2019-11-07] MEDS: READI-CAT 2 PO SCH ×2 (22:27→23:33)
[2019-11-07] MEDS ORDERED: ONDANSETRON 4MG/2ML VIAL IV ONE (23:00)
[2019-11-07] MEDS ORDERED: MORPHINE 4 MG/ML 1ML VIAL/SYRINGE (J2270) IV ONE (23:15)
[2019-11-08] MEDS ORDERED: ISOVUE-370 76% 100ML VIAL As Ordered ONE (00:23)
[2019-11-08 00:28] VITALS: BP 101/59
--- NOTE | 2019-11-08 00:55 | REPVR ---
PROCEDURE INFORMATION: Exam: CT Abdomen And Pelvis Without Contrast Exam date and time: 11/08/2019 12:27 AM Age: 29 years old Clinical indication: Abdominal pain; Generalized; Additional info: Central abd pain, vomited blood TECHNIQUE: Imaging protocol: Computed tomography of the abdomen and pelvis without contrast. Axial, coronal and sagittal reformatted images were created and reviewed. Radiation optimization: All CT scans at this facility use at least one of these dose optimization techniques: automated exposure control; mA and/or kV adjustment per patient size (includes targeted exams where dose is matched to clinical indication); or iterative reconstruction. Other contrast: Oral, ggraphin, 600; COMPARISON: CT ABD/PEL W/IV CONTRAST ONLY 09/27/2019 11:29 PM FINDINGS: Lungs: Mild linear stranding and groundglass at the lung bases, likely due to atelectasis. Mediastinal space: Small hiatal hernia. Liver: Unremarkable. Gallbladder and bile ducts: No radiodense gallstones. No biliary ductal dilatation. Pancreas: Unremarkable. Spleen: Mild splenomegaly. Adrenals: Unremarkable. Kidneys and ureters: Nonobstructing bilateral renal calculi. No hydronephrosis. Stomach and bowel: Questionable asymmetric wall thickening along the anterior aspect of the distal gastric body. Large amount of retained stool in the colon. No obstruction. No pneumatosis. Appendix: Appendix not identified with certainty but no right lower quadrant inflammatory change to suggest acute appendicitis. Intraperitoneal space: No free fluid. No organized fluid collection. No free air. Vasculature: Unremarkable. No aneurysm. Lymph nodes: No pathologically enlarged lymph nodes. Bladder: Unremarkable. Reproductive: Unremarkable. Bones/joints: No acute osseous abnormality. Soft tissues: Unremarkable. IMPRESSION: 1. Limited noncontrast examination. 2. Questionable asymmetric wall thickening along the anterior aspect of the distal gastric body. Given the patient's clinical symptoms, endoscopy may be useful. 3. Additional findings, as above. Electronically signed by: Alec Godinez On 11/08/2019 00:55:13 AM
[2019-11-08] MEDS ORDERED: OMEPRAZOLE 20 MG CAP PO ONE (01:15)
[2019-11-08] MEDS ORDERED: OMEP-218 PO ×2 (01:26→14:27)
[2019-11-08] MEDS ORDERED: ONDA4TAB6 PO ×2 (01:26→14:27)
--- NOTE | 2019-11-08 10:41 | ED PDOC ---
Post-Departure Follow-Up ft jamaal romero faxed formal report of ct abd/p for fu Felix Moctezuma MD Nov 08, 2019 10:41
[2019-11-08] MEDS ORDERED: ALPR0.25 PO (14:27)
[2019-11-08] MEDS ORDERED: ZZZQ25CA PO (14:30)
[2019-11-08] MEDS ORDERED: GABA-845 PO (14:30)
== END 2019-11-08 01:37 | disposition home or self-care (01) ==
LOC: M ED 20:21
DX: R10.9 Unspecified abdominal pain (principal); R11.2 Nausea with vomiting, unspecified; F17.200 Nicotine dependence, unspecified, uncomplicated; Z79.899 Other long term (current) drug therapy; Z91.041 Radiographic dye allergy status; Z87.19 Personal history of other diseases of the digestive system
CPT/HCPCS: 74176; 80048; 80076; 81001; 83690; 84703; 85025; 96361; 96374; 96375; 99284; J2270; J2405; Q9967

== ENCOUNTER 2019-11-08 10:52 | Inpatient (IN) | payer OTHER ==
[~2019-11-08] VITALS: Ht 162.6 cm; Wt 68.2 kg
[~2019-11-08 10:52] MED LIST changes: +OMEP-218 PO; +ONDA4TAB6 PO
[2019-11-08] MEDS ORDERED: LORazepam 2 MG/ML VIAL IV STA (11:34)
[2019-11-08] MEDS ORDERED: NS 1,000 ML IV ONE ×2 (11:45→13:15)
[2019-11-08] MEDS ORDERED: KETOROLAC 30 MG/ML 1ML VIAL IV ONE (11:45)
[2019-11-08 12:14] LABS: BASO % 0.7 % (0.0-1.0); EOS # 0.1 10^3/uL (0.0-0.5); EOS % 1.7 % (0.0-3.0); HEMATOCRIT 28.3 % (36.0-47.0); HEMOGLOBIN 8.6 g/dl (12.0-15.5); LYMPH # 0.4 10^3/uL (1.5-5.0); LYMPH % 12.5 % (24.0-44.0); MEAN CORPUSCULAR HEMOGLOBIN 22.2 pg (27.0-33.0); MEAN CORPUSCULAR HGB CONC 30.4 g/dl (32.0-36.5); MEAN CORPUSCULAR VOLUME 73.1 fl (80.0-96.0); MONO # 0.2 10^3/uL (0.0-0.8); MONO % 7.4 % (0.0-5.0); NEUTROPHILS # 2.3 10^3/uL (1.5-8.5); NEUTROPHILS % 77.7 % (36.0-66.0); PLATELET COUNT, AUTOMATED 178 10^3/uL (150-450); RED BLOOD COUNT 3.87 10^6/uL (4.00-5.40)
[2019-11-08 12:27] LABS: INR 1.51; PROTHROMBIN TIME 18.5 SECONDS (11.8-14.0)
[2019-11-08 12:28] LABS: PARTIAL THROMBOPLASTIN TIME 36.7 SECONDS (25.0-38.4)
[2019-11-08 12:38] LABS: AMPHETAMINES LEVEL URINE NEGATIVE (NEGATIVE); BARBITURATES URINE NEGATIVE (NEGATIVE); BENZODIAZEPINES URINE POSITIVE (NEGATIVE); CANNABINOIDS URINE NEGATIVE (NEGATIVE); COCAINE METABOLITE URINE NEGATIVE (NEGATIVE); METHADONE URINE NEGATIVE (NEGATIVE); OPIATES URINE POSITIVE (NEGATIVE); PHENCYCLIDINE URINE NEGATIVE (NEGATIVE)
[2019-11-08 12:52] LABS: ALBUMIN 3.4 GM/DL (3.2-5.2); ALT/SGPT 23 U/L (12-78); BILIRUBIN,DIRECT 0.5 MG/DL (0.0-0.2); BLOOD UREA NITROGEN 6 MG/DL (7-18); CALCIUM LEVEL 9.1 MG/DL (8.5-10.1); CARBON DIOXIDE LEVEL 23 MEQ/L (21-32); CHLORIDE LEVEL 107 MEQ/L (98-107); GLOMERULAR FILTRATION RATE > 60.0 (>60); GLUCOSE, FASTING 90 MG/DL (70-100); LIPASE 93 U/L (73-393); POTASSIUM SERUM 3.8 MEQ/L (3.5-5.1); SODIUM LEVEL 138 MEQ/L (136-145); TOTAL PROTEIN 6.8 GM/DL (6.4-8.2)
[2019-11-08] MEDS ORDERED: CEFEPIME HCL 1 GM in D5W MINI-BAG PLUS 50 ML IV ONE (14:00)
[2019-11-08] MEDS ORDERED: MORPHINE 2 MG/ML 1ML VIAL (J2270) IV ONE (14:00)
[2019-11-08] MEDS ORDERED: ALPR0.25 PO (14:27)
[2019-11-08] MEDS ORDERED: OMEP-218 PO (14:27)
[2019-11-08] MEDS ORDERED: ONDA4TAB6 PO (14:27)
[2019-11-08] MEDS ORDERED: ZZZQ25CA PO (14:30)
[2019-11-08] MEDS ORDERED: GABA-845 PO (14:30)
--- NOTE | 2019-11-08 14:30 | REPVR ---
PROCEDURE INFORMATION: Exam: US Abdomen Complete Exam date and time: 11/08/2019 1:36 PM Age: 29 years old Clinical indication: Abdominal pain; Generalized; Additional info: Severe upper abdominal pain TECHNIQUE: Imaging protocol: Real-time ultrasound of the abdomen with image documentation. COMPARISON: Abdominal/pelvic CT 11/08/19 FINDINGS: Liver: Fatty infiltration of the liver. Gallbladder: Marked gallbladder wall thickening/edema, along with pericholecystic fluid, consistent with acalculus cholecystitis. Assessment of a sonographic Ngo sign was not reported by the scanning technologist. Common bile duct: normal caliber of the visualized common bile duct measuring 3 mm in diameter. Pancreas: Obscuration of the pancreas by bowel gas. Kidneys: 1 mm nonobstructing bilateral renal calculi, which were better visualized on CT. Spleen: Enlarged spleen measuring 16.2 cm in length. Aorta: Normal caliber of the visualized abdominal aorta. Inferior vena cava: Unremarkable IVC. Intraperitoneal space: Small quantity of intraperitoneal fluid. IMPRESSION: 1. Marked gallbladder wall thickening/edema along with pericholecystic fluid, consistent with acalculus cholecystitis. 2. 1 mm nonobstructing bilateral renal calculi, which were better visualized on CT. 3. Additional findings as described above. Electronically signed by: Kike Gudino On 11/08/2019 14:29:53 PM
[2019-11-08] MEDS ORDERED: MORPHINE 4 MG/ML 1ML VIAL/SYRINGE (J2270) IV PRN (15:30)
[2019-11-08] MEDS ORDERED: GLUCOSE 4GM CHEW TABLET PO PRN (15:30)
[2019-11-08] MEDS ORDERED: GLUCAGON INJ 1MG VIAL SC PRN (15:30)
[2019-11-08] MEDS ORDERED: PERCOCET 5MG/325MG TAB PO PRN ×2 (15:30)
[2019-11-08] MEDS ORDERED: DEXTROSE 50% 50 ML SYRINGE IV PRN (15:30)
[2019-11-08] MEDS ORDERED: PHYTONADIONE 5 MG TAB PO ONE (16:15)
--- NOTE | 2019-11-08 16:41 | HPEPDOC ---
[facility] Medical History & Physical Date of Admission Nov 08, 2019 Date of Service: Nov 08, 2019 History and Physical Hospitalist H&P dictated (call [employer] [phone] for report if emergently needed) Assessment: 29 y/o ETOH liver cirrhosis, ETOH abuse, ascites s/p paracentesis, history of UGIBleed with no varices, chronic leukopenia, tobacco abuse presents with 3days h/o ruq pain seen at [facility] er 11/07/19 and sent home, returns 11/08/19 w fever, leukopenia and us gallbladder-acute acalculous cholecystitis. ER spoke w Dr. Kaykay mcdaniel, general surgery, who recommended HIDA scan and IR Dr. Price to do a cholecystostomy tube. IV cefepime given in ER. zosyn continued on floor. quit ETOH use 02/28/2019. Acute acalculous cholecystitis SIRS ETOH liver cirrhosis Coagulopathy INR 1.5 due to ETOH liver disease ETOH abuse ascites s/p paracentesis history of UGIBleed with no varices chronic leukopenia tobacco abuse Plan: npo. ivfluids. iv zosyn. NO OPIOIDS AFTER MIDNIGHT-DUE TO HIDA SCAN ORDERED FOR 11/09/19. NO NSAIDs due to h/o GI bleed. Dr. Price to evaluate for cholecystostomy tube. prn pain meds. compression stockings. no lovenox or heparin sq due to planned cholecystostomy tube placement. Vital Signs Vital Signs Date Time Temp Pulse Resp B/P (MAP) Pulse Ox O2 Delivery O2 Flow Rate FiO2 11/08/19 14:14 16 11/08/19 13:18 100.3 97 98/56 (70) 97 Room Air Laboratory Data Labs 24H Laboratory Tests 2 11/08/19 11:49: Immature Granulocyte % (Auto) 0.0, Neutrophils (%) (Auto) 77.7H, Lymphocytes (%) (Auto) 12.5L, Monocytes (%) (Auto) 7.4H, Eosinophils (%) (Auto) 1.7, Basophils (%) (Auto) 0.7, Neutrophils # (Auto) 2.3, Lymphocytes # (Auto) 0.4L, Monocytes # (Auto) 0.2, Eosinophils # (Auto) 0.1, Basophils # (Auto) 0.0, Nucleated Red Blood Cells % (auto) 0.0, Prothrombin Time 18.5H, Prothromb Time International Ratio 1.51, Activated Partial Thromboplast Time 36.7, Urine Color YELLOW, Urine Appearance CLEAR, Urine pH 5.0, Urine Specific [place] 1.011, Urine Protein NEGATIVE, Urine Glucose (UA) NEGATIVE, Urine Ketones NEGATIVE, Urine Blood 1+H, Urine Nitrite NEGATIVE, Urine Bilirubin NEGATIVE, Urine Urobilinogen 2.0H, Urine Leukocyte Esterase NEGATIVE, Urine WBC (Auto) 1, Urine RBC (Auto) 4H, Urine Hyaline Casts (Auto) 0, Urine Bacteria (Auto) 1+H, Urine Squamous Epithelial Cells 1, Urine Amorphous Sediment SMALLH, Urine Sperm (Auto) , Anion Gap 8, Glomerular Filtration Rate > 60.0, Lactic Acid Level 3.0*H, Calcium Level 9.1, Total Bilirubin 1.0, Direct Bilirubin 0.5H, Aspartate Amino Transf (AST/SGOT) 45H, Alanine Aminotransferase (ALT/SGPT) 23, Alkaline Phosphatase 125H, Total Protein 6.8, Albumin 3.4, Albumin/Globulin Ratio 1.0L, Lipase 93, Urine Opiates Screen POSITIVEH, Urine Methadone Screen NEGATIVE, Urine Barbiturates Screen NEGATIVE, Urine Phencyclidine Screen NEGATIVE, Urine Amphetamines Screen NEGATIVE, Urine Benzodiazepines Screen POSITIVEH, Urine Cocaine Metabolite Scr een NEGATIVE, Urine Cannabinoids Screen NEGATIVE 11/08/19 14:38: Coronavirus (COVID-19)(PCR) NEGATIVE CBC/BMP Laboratory Tests 11/08/19 11:49 Microbiology Microbiology 11/08/19 Blood Culture, Received Pending 11/08/19 Blood Culture, Received Pending Home Medications Scheduled Etonogestrel (Nexplanon) 68 Mg Implant, 68 MG IM ASDIRECTED Gabapentin (Gabapentin) 400 Mg Capsule, 400 MG PO TID Omeprazole (Omeprazole) 20 Mg Capsule.dr, 20 MG PO DAILY Tizanidine HCl (Tizanidine HCl) 4 Mg Tablet, 4 MG PO TID Scheduled PRN Alprazolam (Alprazolam) 0.25 Mg Tablet, 0.25 MG PO TID PRN for ANXIETY Diphenhydramine HCl (Zzzquil) 25 Mg Capsule, 25 MG PO QHS PRN for SLEEP Ondansetron (Ondansetron Odt) 4 Mg Tab.rapdis, 4 MG PO Q6H PRN for NAUSEA OR VOM ITING HAS NOT STARTED OF 11/08/2019 Allergies Coded Allergies: Iodinated Contrast Media (Verified Allergy, Intermediate, HIVES, 11/07/19) A-FIB/CHADSVASC A-FIB History Current/History of A-Fib/PAF?: No Current PO Anticoag Therapy: No Age/Risk Factor Scoring CHADSVASC: CHADSVASC Response (Comments) Value Age Risk Factor Age < 65 years old 0 Gender Risk Factor Female 1 Hx of CHF No 0 Hx of HTN No 0 Hx of Stroke/TIA/or VTE No 0 Hx of Diabetes No 0 Hx of Vascular Disease No 0 Total 1 Treatment Treatment ordered: NONE Reason Anticoagulant not given: Not indicated/[id number] MIKO HARLEY MD Nov 08, 2019 16:41
[2019-11-08] MEDS: GABAPENTIN 400 MG CAP PO SCH ×2 (17:15→21:19)
[2019-11-08] MEDS: tiZANidine 4 MG TAB PO SCH ×2 (17:16→21:19)
[2019-11-08] MEDS: NS 1,000 ML IV SCH ×2 (17:16→21:21)
[2019-11-08] MEDS: MORPHINE 30 MG TAB **MSIR PO SCH ×2 (17:16→21:20)
[2019-11-08] MEDS: ONDANSETRON 4 MG ORAL DISINTEGRATING TAB PO PRN (17:21)
[2019-11-08] MEDS: KCL 10MEQ IN D5/0.45NS 1000ML 1,000 ML IV SCH (18:00)
[2019-11-08] MEDS: PIPERACILLIN/TAZOBACTAM SOD 3.375 GM in D5W MINI-BAG PLUS 50 ML IV SCH ×2 (18:00→23:34)
[2019-11-08 20:07] VITALS: BP 138/80
[2019-11-08] MEDS: ALPRAZolam 0.25 MG TAB PO PRN (23:34)
[2019-11-09] MEDS: KCL 10MEQ IN D5/0.45NS 1000ML 1,000 ML IV SCH ×5 (00:50→23:23)
[2019-11-09] MEDS: PIPERACILLIN/TAZOBACTAM SOD 3.375 GM in D5W MINI-BAG PLUS 50 ML IV SCH ×4 (05:31→23:21)
[2019-11-09] MEDS: ONDANSETRON 4 MG ORAL DISINTEGRATING TAB PO PRN ×2 (05:31→22:30)
[2019-11-09 05:33] VITALS: BP 103/59
[2019-11-09] MEDS ORDERED: diphenhydrAMINE 50MG/ML VIAL (J1200) As Ordered ONE (07:41)
[2019-11-09] MEDS ORDERED: fentaNYL 100 MCG/2 ML INJECTION (J3010) As Ordered ONE (07:42)
[2019-11-09] MEDS ORDERED: MIDAZOLAM INJ 2MG/2ML VIAL (J2250 PER 1MG) As Ordered ONE (07:42)
[2019-11-09] MEDS ORDERED: ISOVUE-300 61% 50ML VIAL As Ordered ONE (07:43)
[2019-11-09] MEDS ORDERED: LIDOCAINE 1% MDV 20ML VIAL As Ordered ONE (07:43)
[2019-11-09] MEDS ORDERED: cefTRIAXone SOD 1GM VIAL (J0696 PER 250MG) As Ordered ONE (08:04)
[2019-11-09] MEDS ORDERED: PROMETHAZINE INJ 25 MG/ML VIAL (J2550) As Ordered ONE (08:20)
--- NOTE | 2019-11-09 09:33 | POST-OPPD ---
Postoperative Procedure Note Date Of Procedure: Nov 09, 2019 Time Of Procedure: 09:32 PREOPERATIVE DIAGNOSIS: Cholecystitis POSTOPERATIVE DIAGNOSIS: Cholecystitis FINDINGS: Gallbladder is completely contracted, decompressed with no distention or pericholecystic fluid. Not appropriate for cholecystostomy catheter pl acement. PROCEDURE: CT performed. Not appropriate for cholecystostomy. Physician: KATHERINE Arvizu MD Nov 09, 2019 09:33
[2019-11-09] MEDS: PANTOPRAZOLE 40MG VIAL (C9113 PER 1) IV SCH (09:50)
[2019-11-09] MEDS: tiZANidine 4 MG TAB PO SCH ×3 (09:50→20:23)
[2019-11-09] MEDS: GABAPENTIN 400 MG CAP PO SCH ×3 (09:50→20:23)
[2019-11-09] MEDS ORDERED: NS 500 ML IV ONE (10:30)
[2019-11-09] MEDS ORDERED: PILL CUTTER 1 EACH XX PRN (10:45)
[2019-11-09] MEDS ORDERED: HYDROmorphone 2 MG TAB PO PRN (10:45)
[2019-11-09] MEDS ORDERED: NALOXONE INJ 0.4MG/1ML VIAL (J2310 PER 1MG) IV PRN (10:45)
[2019-11-09 10:53] LABS: BASO % 0.4 % (0.0-1.0); EOS # 0.2 10^3/uL (0.0-0.5); EOS % 4.4 % (0.0-3.0); LYMPH # 1.3 10^3/uL (1.5-5.0); LYMPH % 23.9 % (24.0-44.0); MEAN CORPUSCULAR HEMOGLOBIN 21.8 pg (27.0-33.0); MEAN CORPUSCULAR HGB CONC 29.2 g/dl (32.0-36.5); MEAN CORPUSCULAR VOLUME 74.8 fl (80.0-96.0); MONO # 0.5 10^3/uL (0.0-0.8); MONO % 10.2 % (0.0-5.0); NEUTROPHILS # 3.2 10^3/uL (1.5-8.5); NEUTROPHILS % 60.9 % (36.0-66.0); PLATELET COUNT, AUTOMATED 146 10^3/uL (150-450); RED BLOOD COUNT 3.21 10^6/uL (4.00-5.40); WHITE BLOOD COUNT 5.3 10^3/uL (4.0-10.0)
[2019-11-09] MEDS ORDERED: MORPHINE 10 MG/ML 1ML VIAL (J2270) IV ONE (11:00)
[2019-11-09 11:11] LABS: ALBUMIN 2.8 GM/DL (3.2-5.2); ALT/SGPT 22 U/L (12-78); BILIRUBIN,TOTAL 1.1 MG/DL (0.2-1.0); BLOOD UREA NITROGEN 4 MG/DL (7-18); CALCIUM LEVEL 8.3 MG/DL (8.5-10.1); CARBON DIOXIDE LEVEL 22 MEQ/L (21-32); CHLORIDE LEVEL 112 MEQ/L (98-107); CREATININE FOR GFR 0.62 MG/DL (0.55-1.30); GLOMERULAR FILTRATION RATE > 60.0 (>60); GLUCOSE, FASTING 96 MG/DL (70-100); POTASSIUM SERUM 3.5 MEQ/L (3.5-5.1); SODIUM LEVEL 142 MEQ/L (136-145); TOTAL PROTEIN 5.7 GM/DL (6.4-8.2)
[2019-11-09] MEDS: KETOROLAC 30 MG/ML 1ML VIAL IV SCH ×3 (11:23→22:30)
[2019-11-09] MEDS: MORPHINE 30 MG TAB **MSIR PO SCH ×3 (11:52→23:21)
[2019-11-09 14:00] VITALS: BP 87/41
[2019-11-09 16:25] LABS: HEMATOCRIT 25.3 % (36.0-47.0); HEMOGLOBIN 7.3 g/dl (12.0-15.5)
[2019-11-09] MEDS: ALPRAZolam 0.25 MG TAB PO PRN (20:23)
[2019-11-09 22:00] VITALS: BP 127/68
[2019-11-10] VITALS (12 sets, daily range): BP systolic 100–143; BP diastolic 54–89
[2019-11-10] MEDS: ACETAMINOPHEN TAB 650MG DOSE (2X325MG) PO PRN ×2 (00:25→19:56)
[2019-11-10] MEDS: PIPERACILLIN/TAZOBACTAM SOD 3.375 GM in D5W MINI-BAG PLUS 50 ML IV SCH ×4 (05:04→23:45)
[2019-11-10] MEDS: KETOROLAC 30 MG/ML 1ML VIAL IV SCH ×4 (05:05→22:58)
[2019-11-10] MEDS: MORPHINE 30 MG TAB **MSIR PO SCH ×4 (05:06→23:44)
--- NOTE | 2019-11-10 07:04 | HPE ---
DATE OF ADMISSION: 11/08/2019 CHIEF COMPLAINT: Abdominal pain. HISTORY OF PRESENT ILLNESS: This is a 29-year-old female with history of alcoholic liver cirrhosis, anemia due to iron deficiency and chronic blood loss, gastrointestinal bleed without history varices, positive Lyme disease, active smoker a pack a week, history of ascites secondary to decompensated liver disease, status post paracentesis, pneumonia, anxiety disorder and induced , presents to the emergency room with complaints of right upper quadrant abdominal pain that started three days ago accompanied with nausea and vomiting about 3 to 4 times a day, decreased oral intake and appetite without any weight loss. The patient had a fever of 102 to 103, was seen in the emergency room today and was discharged and then returned with similar complaints, unable to keep food down and pain is 10/10 in the right upper quadrant with radiation to the bilateral shoulder blades. The patient describes this as ripping my insides open very sharp. No medications were taken besides her home dose of tizanidine. No NSAID use. No acetaminophen use at home. The patient was found to have a temperature of 103 this morning at 10 a.m., tachycardiac, admitted for sepsis due to acute cholecystitis. She remains leukopenic and anemic with lactic acid of 3 and bilirubin of 0.5. Hospitalist was asked to admit. She remains COVID negative. REVIEW OF SYSTEMS: 12-point system otherwise negative. Denies, dysuria, urgency, frequency or flank pain diarrhea. PAST MEDICAL HISTORY: Alcoholic liver disease, alcoholic cirrhosis with ascites, status post previous paracentesis. No varices, gastrointestinal bleed, history of upper gastrointestinal bleed, anxiety disorder, induced , iron deficiency, liver dysfunction, alcoholic pancreatitis, pneumonia. PAST SURGICAL HISTORY: Induced . ALLERGIES: IODINATED CONTRAST MEDIA. HOME MEDICATIONS: - Xanax 0.25 mg p.o. t.i.d. as needed - Tizanidine 4 mg t.i.d. - Nexplanon implant - Prilosec 40 mg daily - Reglan 10 mg q 6 hours as needed - Carafate 1 gm a.c. SOCIAL HISTORY: Lives with her . Smokes cigarettes a pack a week. Stopped alcohol use February 28, 2019. [place] . 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 REVIEW OF SYSTEMS: Per history of present illness. 12 point system otherwise negative. FAMILY HISTORY: Mother with brain aneurysm. Father unknown medical problems. Maternal grandmother with breast cancer. Paternal grandmother lung cancer. PHYSICAL EXAMINATION: Temperature 102, pulse 107, respiratory rate 16, blood pressure 116/57, 100% on room air General: Awake, alert, oriented times 3, answers questions appropriately, anicteric sclerae, no jaundice. No respiratory distress. Able to speak in full sentences. Very anxious and tearful at the bedside. Moist mucous membranes. No jugular venous distention (JVD), thyromegaly or cervical lymphadenopathy. Lungs are clear to auscultation. No wheezes, rales or rhonchi. Heart: S1, S2, sinus tachycardia. Abdomen is soft, tender in the right upper quadrant. No rebound, guarding. Positive bowel sounds in four quadrants. No hepatosplenomegaly. No costovertebral angle (CVA) tenderness. Extremities No cyanosis, clubbing or pitting edema. LABORATORY DATA: COVID 19 negative. White count 3, hemoglobin 8.6, hematocrit 28, platelet count 178. Sodium 138, potassium 3.8, chloride 107, bicarbonate 23, BUN 6, creatinine 0.8, glucose of 90, calcium 9.1. Total bilirubin of 1, direct bilirubin 0.5, AST 45, ALT 23, alkaline phosphatase 125, total protein 3.8, albumin 3.4, lipase of 93. Urine drug screen positive for opiates and benzodiazepine. INR of 1.5, PT of 18.5, PTT of 36.7. Urinalysis 1+ blood, 2 urobilinogens, negative leukocyte esterase, 1 WBC, 4 RBCs, 1+ bacteria. Blood cultures have been sent. Ultrasound of the abdomen 11/08/2019: Mild gallbladder wall thickening. Edema along with pericholecystic fluid consistent with acalculous cholecystitis, 1 mm non-obstructing bilateral renal calculi, which was better visualized on CT. CT abdomen and pelvis on 11/08/2019 at 12:27: Atelectasis, mild hiatal hernia, asymmetric wall thickening along the anterior aspect of the distal gastric body, endoscopy may be useful. No organized fluid in the anterior peritoneal space. Appendix is not identified, but no right lower quadrant inflammatory change. Unremarkable bones, bladder and soft tissues. ASSESSMENT AND PLAN: This is a 29-year-old female with history of alcoholic liver cirrhosis with ascites, paracentesis, history of upper gastrointestinal bleed, leukopenia and refractory anemia, previously seen by Dr. Wilkerson at the [facility], hematology department, tobacco abuse, presents to the emergency room with a three day history of nausea, vomiting, right upper quadrant pain, was found to have acute cholecystitis with no gallstones. IMPRESSION: 1. Sepsis, fever of 103, tachycardiac at 107. Ultrasound showing acalculous cholecystitis. The patient will be kept n.p.o. with IV fluids until lactic acid is normal. Empiric antibiotics have been given in the emergency room with cefepime. Will continue with gram negative and anaerobic coverage with Zosyn, IV q [address] Price has been consulted for cholecystotomy tube placement. The patient will be kept n.p.o. She will be kept without opiates from midnight in order to perform the HIDA scan tomorrow morning. Avoid more than 4 grams of acetaminophen use. Avoid NSAIDs due to history of gastrointestinal bleed with history of liver cirrhosis. 2. Hypercoagulable state due to liver disease with INR of 1.5. Vitamin K supplement. Will check INR. Fresh frozen plasma infusion if needed prior to cholecystostomy tube placement. 3. History of gastrointestinal bleed, currently not having any acute issues. Continue with Protonix for now. Since she is n.p.o. will give as an IV Protonix. 4. Alcohol abuse, quit February 2019. 5. Leukopenia. The patient has history of previous leukopenia, evaluated by cooling tower technician, Dr. Wilkerson. 6. History of positive Lyme disease, no acute issues. Denies any arthritic complaints. 7. Positive urine drug screen for opiates and benzodiazepine. 8. History of tobacco abuse. Tobacco cessation counseling. 9. Deep venous thrombosis (DVT) prophylaxis with compression stockings. [facility]
[2019-11-10 07:21] LABS: BASO % 0.6 % (0.0-1.0); EOS # 0.2 10^3/uL (0.0-0.5); EOS % 3.4 % (0.0-3.0); HEMATOCRIT 25.2 % (36.0-47.0); HEMOGLOBIN 7.4 g/dl (12.0-15.5); LYMPH # 1.2 10^3/uL (1.5-5.0); LYMPH % 22.1 % (24.0-44.0); MEAN CORPUSCULAR HEMOGLOBIN 21.7 pg (27.0-33.0); MEAN CORPUSCULAR HGB CONC 29.4 g/dl (32.0-36.5); MEAN CORPUSCULAR VOLUME 73.9 fl (80.0-96.0); MONO # 0.5 10^3/uL (0.0-0.8); MONO % 8.6 % (0.0-5.0); NEUTROPHILS # 3.4 10^3/uL (1.5-8.5); NEUTROPHILS % 64.9 % (36.0-66.0); PLATELET COUNT, AUTOMATED 146 10^3/uL (150-450); RED BLOOD COUNT 3.41 10^6/uL (4.00-5.40); WHITE BLOOD COUNT 5.3 10^3/uL (4.0-10.0)
[2019-11-10 07:48] LABS: ALBUMIN 2.8 GM/DL (3.2-5.2); ALT/SGPT 17 U/L (12-78); BLOOD UREA NITROGEN 4 MG/DL (7-18); CALCIUM LEVEL 8.7 MG/DL (8.5-10.1); CARBON DIOXIDE LEVEL 27 MEQ/L (21-32); CHLORIDE LEVEL 110 MEQ/L (98-107); CREATININE FOR GFR 0.62 MG/DL (0.55-1.30); GLOMERULAR FILTRATION RATE > 60.0 (>60); GLUCOSE, FASTING 110 MG/DL (70-100); LIPASE 86 U/L (73-393); POTASSIUM SERUM 3.8 MEQ/L (3.5-5.1); SODIUM LEVEL 141 MEQ/L (136-145); TOTAL PROTEIN 5.7 GM/DL (6.4-8.2)
[2019-11-10] MEDS: PANTOPRAZOLE 40MG VIAL (C9113 PER 1) IV SCH (08:41)
[2019-11-10] MEDS: GABAPENTIN 400 MG CAP PO SCH ×3 (08:41→21:14)
[2019-11-10] MEDS: tiZANidine 4 MG TAB PO SCH ×3 (08:41→21:14)
[2019-11-10] MEDS: KCL 10MEQ IN D5/0.45NS 1000ML 1,000 ML IV SCH ×3 (08:42→23:45)
[2019-11-10] MEDS: ALPRAZolam 0.25 MG TAB PO PRN (17:40)
[2019-11-10] MEDS: ONDANSETRON 4 MG ORAL DISINTEGRATING TAB PO PRN (18:25)
[2019-11-10] MEDS: ONDANSETRON 4MG/2ML VIAL IV PRN (22:58)
[2019-11-11] MEDS: ALPRAZolam 0.25 MG TAB PO PRN (05:33)
[2019-11-11] MEDS: PIPERACILLIN/TAZOBACTAM SOD 3.375 GM in D5W MINI-BAG PLUS 50 ML IV SCH ×2 (05:33→12:00)
[2019-11-11] MEDS: KETOROLAC 30 MG/ML 1ML VIAL IV SCH ×2 (05:34→11:00)
[2019-11-11] MEDS: MORPHINE 30 MG TAB **MSIR PO SCH ×2 (05:34→12:00)
[2019-11-11 06:00] VITALS: BP 113/59
[2019-11-11] MEDS ORDERED: BISACODYL 10 MG SUPP PR PRN (06:15)
[2019-11-11 07:00] LABS: BASO % 0.7 % (0.0-1.0); EOS # 0.2 10^3/uL (0.0-0.5); EOS % 4.4 % (0.0-3.0); HEMATOCRIT 31.4 % (36.0-47.0); LYMPH # 0.9 10^3/uL (1.5-5.0); LYMPH % 21.1 % (24.0-44.0); MEAN CORPUSCULAR HEMOGLOBIN 23.6 pg (27.0-33.0); MEAN CORPUSCULAR HGB CONC 31.5 g/dl (32.0-36.5); MEAN CORPUSCULAR VOLUME 74.8 fl (80.0-96.0); MONO # 0.3 10^3/uL (0.0-0.8); MONO % 7.3 % (0.0-5.0); NEUTROPHILS # 2.9 10^3/uL (1.5-8.5); PLATELET COUNT, AUTOMATED 142 10^3/uL (150-450); WHITE BLOOD COUNT 4.4 10^3/uL (4.0-10.0)
[2019-11-11 07:11] LABS: HEMOGLOBIN 9.9 g/dl (12.0-15.5)
[2019-11-11 07:28] LABS: ALT/SGPT 17 U/L (12-78); BILIRUBIN,TOTAL 1.7 MG/DL (0.2-1.0); BLOOD UREA NITROGEN 2 MG/DL (7-18); CALCIUM LEVEL 8.6 MG/DL (8.5-10.1); CARBON DIOXIDE LEVEL 24 MEQ/L (21-32); CHLORIDE LEVEL 109 MEQ/L (98-107); CREATININE FOR GFR 0.61 MG/DL (0.55-1.30); GLOMERULAR FILTRATION RATE > 60.0 (>60); GLUCOSE, FASTING 91 MG/DL (70-100); POTASSIUM SERUM 3.5 MEQ/L (3.5-5.1); SODIUM LEVEL 141 MEQ/L (136-145); TOTAL PROTEIN 6.2 GM/DL (6.4-8.2)
[2019-11-11] MEDS: tiZANidine 4 MG TAB PO SCH (08:22)
[2019-11-11] MEDS: GABAPENTIN 400 MG CAP PO SCH (08:22)
[2019-11-11] MEDS: PANTOPRAZOLE 40MG VIAL (C9113 PER 1) IV SCH (08:23)
[2019-11-11] MEDS: ACETAMINOPHEN TAB 650MG DOSE (2X325MG) PO PRN (08:23)
[2019-11-11] MEDS: KCL 10MEQ IN D5/0.45NS 1000ML 1,000 ML IV SCH (08:24)
[2019-11-11] MEDS: ONDANSETRON 4MG/2ML VIAL IV PRN (08:34)
[2019-11-11] MEDS ORDERED: FLAG500T PO (09:51)
[2019-11-11] MEDS ORDERED: CIPR5SUS PO (09:51)
[2019-11-11 14:00] VITALS: BP 114/69
--- NOTE | 2019-11-11 17:05 | IPN ---
DATE: 11/09/2019 SUBJECTIVE: Patient still complains of epigastric pain radiating to the bilateral shoulder blades, was febrile overnight. No complaints of chills. Some nausea without vomiting. OBJECTIVE/PHYSICAL EXAMINATION: VITAL SIGNS: Temperature 100.1, pulse 73, respiratory rate 18, blood pressure 103/59, 98% on room air. GENERAL: Anicteric, no jaundice. No icterus. No respiratory distress. LUNGS: Clear to auscultation. No wheezing, rales or rhonchi. HEART: S1, S2, sinus rhythm. ABDOMEN: Soft, tender in the epigastric region. No rebound or guarding. No hepatosplenomegaly. EXTREMITIES: No cyanosis or clubbing. LABORATORY DATA: White count 5.3, hemoglobin 7, hematocrit 24, platelet count 146,000. Sodium 142, potassium 3.5, chloride 112, bicarb 22, BUN 4, creatinine 0.62, glucose 96. ASSESSMENT AND PLAN: This is a 29-year-old with a history of liver cirrhosis, alcohol abuse, ascites with paracentesis, upper GI bleed, renal varices, chronic leucopenia, tobacco abuse, who presented to the Emergency Room with a three day history of right upper quadrant pain. She was seen at [facility] ER and was sent home, returns with underlying ongoing fever, leukopenia, ultrasound showing acalculous cholecystitis. ER spoke with Dr. Guillen, general surgeon transmission inspector, who recommended HIDA scan and Dr. Price to place a cholecystostomy tube. HIDA scan was negative. Patient was given I.V. Cefepime in the ER. Zosyn was continued on the floor. She quit alcohol use in February 2019. CURRENT ISSUES: Acute acalculous cholecystitis, systemic inflammatory response, alcohol liver cirrhosis, anemia due to hemodilution. Patient did receive 6 liters of I.V. fluids yesterday. Coagulopathy with INR of 1.5 secondary to alcohol liver disease: alcohol abuse, ascites in the past, status post paracentesis, history of upper GI bleed with no varices, chronic leukopenia and tobacco abuse. PLAN: Patient, according to Dr. Price, does not require cholecystostomy tube. She was kept n.p.o., continued on I.V. fluids and boluses, pain medications with MSIR every 6 hours, Toradol. Monitor for bleeding. Hemoglobin of 7 is most likely due to hemodilution from fluids being given 6 liters yesterday. Output this morning is adequate. Monitor for any signs of bleeding. Check hemoccult stool and repeat hemoglobin and hematocrit. MTDD
--- NOTE | 2019-11-13 13:19 | IPN ---
DATE: 11/10/2019 Patient complaints of generalized weakness, some shortness of breath, as she has had for some time. Ascribes it to her anemia and open to receiving blood transfusion. No nausea or vomiting. Tolerated her full liquid diet and requesting for more. Pain is currently at 5/10 but says that her pain is improved from 10/10 on arrival and admission. Does not want medications to be changed. OBJECTIVE: PHYSICAL EXAMINATION: VITAL SIGNS: Temperature 97.4, pulse 58, respiratory rate 16, blood pressure 108/60, 96% on room air. GENERAL: Slight pallor. No icterus or jaundice. No jugular venous distention (JVD). No thyromegaly. LUNGS: Clear to auscultation. No wheezing, rales, or rhonchi. HEART: S1, S2, sinus rhythm. No murmurs, rubs, or gallops. ABDOMEN: Soft, tender in epigastric region without rebound or guarding. Positive bowel sounds in four quadrants. EXTREMITIES: Trace edema. LABORATORY DATA: White count 5.4, hemoglobin 7.4, hematocrit 25, platelet count 146. Sodium 141, potassium 3.9, chloride 110, bicarbonate 27, BUN 4, creatinine 0.62. Glucose 110. Microbiology: Blood cultures pending. Hemoccult stool negative. ASSESSMENT AND PLAN: This is a 29-year-old with history of alcohol abuse, alcohol liver cirrhosis with ascites, status post paracentesis. No varices, upper gastrointestinal (GI) bleed. Anxiety disorder, induced , iron deficiency, alcoholic pancreatitis, and pneumonia, presented with 3-day history of epigastric abdominal pain, found to have acute acalculous cholecystitis. IMPRESSION: 1. Acute acalculous cholecystitis. 2. Lactic acidosis, resolved. 3. Anemia of chronic disease. No signs of acute GI bleed. 4. Chronic thrombocytopenia secondary to alcohol liver disease. 5. Alcohol liver cirrhosis with ascites, status post prior paracentesis. 6. History of upper GI bleed in the past. PLAN: Patient is continued on IV fluids until she is tolerating a low-fat, low- cholesterol diet, which we will order today. For the anemia, patient is agreeable to receiving blood transfusion and says that she was due to have a blood transfusion as outpatient by her precision machining instructor. Patient is to be continued on as-needed pain medications, IV Zosyn, until tolerating her diet. Then will switch over to Augmentin for outpatient completion. Patient has a piping supervisor who can refer her to general surgeon to do a cholecystectomy as outpatient. [place]
--- NOTE | 2019-12-03 16:29 | REP ---
HIDA SCAN HISTORY: Gallbladder wall thickening, abdominal pain. TECHNIQUE: Following the intravenous administration of 6.6 mCi Technetium-99m mebrofenin, multiple images of the abdomen are performed for one hour. FINDINGS: There is no parenchymal defect in the liver. There is biliary to bowel transit visualized at 15-20 minutes post-injection. The gallbladder is visualized at 45 minutes post-injection. IMPRESSION: No scintigraphic evidence of cholecystitis. MTDD
--- NOTE | 2019-12-04 10:44 | DSES ---
DATE OF ADMISSION: 11/08/2019 DATE OF DISCHARGE: 11/11/2019 GEAR MILLING MACHINE SET UP OPERATOR: Dr. Sandhya Price, interventional radiology. Patient did not require a cholecystotomy tube placement, therefore the procedure was discontinued. PRIMARY DISCHARGE DIAGNOSES: 1. Acute acalculous cholecystitis. 2. History of alcohol abuse. 3. Alcoholic liver cirrhosis with ascites requiring paracentesis. 4. Systemic inflammatory response. 5. History of upper gastrointestinal (GI) bleed and no varices. 6. Chronic leukopenia. 7. Tobacco abuse. 8. Anemia due to hemodilution status post red blood cells (RBC) transfusion two units from hemoglobin of 7 to hemoglobin of 9.9. DISCHARGE MEDICATIONS: - Cipro 500 twice a day - Flagyl 500 every 8 hours - Alprazolam 0.25 three times a day as needed - Diphenhydramine 25 nightly as needed - Nexplanon intramuscular (IM) - Gabapentin 400 three times a day - Prilosec 20 daily - Zofran 4 mg as needed every 6 hours - Tizanidine 4 mg three times a day DISCHARGE INSTRUCTIONS: Patient is to have full liquid diet, advanced to low fat, low cholesterol. Immediate followup within 7 days of hospital discharge with primary care physician and pattern finisher. Primary care physician or pattern finisher can refer the patient to a general surgeon for laparoscopic cholecystectomy. HOSPITAL COURSE: This is a 29-year-old female who presented to the emergency room with complaints of worsening epigastric abdominal pain with radiation to the back between the shoulder blades accompanied with a fever of 102-103. Patient was seen in the emergency room (ER) and sent home the day before and represents in the morning with worsening fever and abdominal pain, found to have sepsis with fever of 103, tachycardic at 107, and CT abdomen and pelvis shows acute acalculous cholecystitis. Patient was given IV cefepime in the ER and was continued on intravenous Zosyn every 6 hours, kept nothing by mouth with IV fluids running until pain is improved. Patient defervesced with improved white count of 4.4 from leukopenic white count of 3.3. She was noted to be anemic with hemoglobin going down to 7 after hemodilution and 7 liters of IV fluids given and was transfused two units red blood cells (RBCs) with resultant hemoglobin of 9.9. Patient tolerated her nothing by mouth status and was slowly advanced to clears and full liquid diet. When she was advanced to low fat, low cholesterol she had an episode of emesis but has been fine for the past 24 hours and slowly advanced her diet again. PHYSICAL EXAMINATION ON DISCHARGE: Temperature 98.4, pulse 73, respiratory rate 18, blood pressure 113/59, 92% on room air. Generally: Awake, alert, oriented to person and place, answering questions appropriate. Anicteric, no jaundice, no jugular venous distension (JVD) or thyromegaly. Lungs: Diminished but clear to auscultation. No wheezing or rales. Heart: S1, S2, sinus rhythm. Abdomen: Soft, tender in the epigastric region, no rebound or guarding. Extremities: No cyanosis, clubbing, or edema. LABORATORY DATA ON DISCHARGE: White count 4.4, hemoglobin 9.9, hematocrit 31, platelet count 141. Sodium 141, potassium 3.5, chloride 109, bicarbonate 24, BUN 2, creatinine 0.61, glucose of 91, total bilirubin of 1.7, AST 27, ALT 17, alkaline phosphatase of 91. IMAGING STUDIES: Ultrasound of the abdomen marked gallbladder wall thickening and edema along with pericholecystic fluid consistent with acalculous cholecystitis, 1 mm nonobstructing bilateral renal calculi well visualized on the CT of the abdomen. CT of the abdomen 11/08/2019 limited non-contrast exam. Questionable asymmetric wall thickening along the anterior aspect of the distal gastric body. Endoscopy may be useful. TIME SPENT ON DISCHARGE: 30 minutes. MTDD
== END 2019-11-11 15:40 | disposition home or self-care (01) | DRG 872 ==
LOC: M ED 10:52 → M ED INP 15:21 → M MS5PR 20:07
PROVIDERS: ADMIT General Practice; ATTEND General Practice
PROC: 0F943ZZ Drainage of Gallbladder, Percutaneous Approach (ICD-10-PCS; principal; 2019-11-09 09:00)
DX: A41.9 Sepsis, unspecified organism (principal); K81.0 Acute cholecystitis; K70.31 Alcoholic cirrhosis of liver with ascites; F17.210 Nicotine dependence, cigarettes, uncomplicated; Z79.899 Other long term (current) drug therapy; Z91.041 Radiographic dye allergy status; D50.0 Iron deficiency anemia secondary to blood loss (chronic); D69.6 Thrombocytopenia, unspecified

== ENCOUNTER 2019-11-12 23:24 | Inpatient (IN) | payer OTHER ==
[~2019-11-12] VITALS: Ht 162.6 cm; Wt 66.6 kg
[~2019-11-12 23:24] MED LIST changes: +CIPR5SUS PO; +GABA-845 PO; +ZZZQ25CA PO
[2019-11-13 00:40] LABS: BASO # 0.1 10^3/uL (0.0-0.2); BASO % 0.8 % (0.0-1.0); EOS # 0.3 10^3/uL (0.0-0.5); EOS % 4.3 % (0.0-3.0); HEMATOCRIT 33.1 % (36.0-47.0); HEMOGLOBIN 10.5 g/dl (12.0-15.5); LYMPH # 1.4 10^3/uL (1.5-5.0); LYMPH % 23.2 % (24.0-44.0); MEAN CORPUSCULAR HEMOGLOBIN 23.5 pg (27.0-33.0); MEAN CORPUSCULAR HGB CONC 31.7 g/dl (32.0-36.5); MONO # 0.7 10^3/uL (0.0-0.8); MONO % 11.7 % (0.0-5.0); NEUTROPHILS # 3.6 10^3/uL (1.5-8.5); NEUTROPHILS % 59.2 % (36.0-66.0); PLATELET COUNT, AUTOMATED 177 10^3/uL (150-450); RED BLOOD COUNT 4.47 10^6/uL (4.00-5.40); WHITE BLOOD COUNT 6.1 10^3/uL (4.0-10.0)
[2019-11-13] MEDS ORDERED: ISOVUE-370 76% 100ML VIAL As Ordered ONE (00:45)
[2019-11-13] MEDS ORDERED: methylPREDNISolone 125MG 2ML VIAL IV ONE (00:45)
[2019-11-13] MEDS ORDERED: ONDANSETRON 4MG/2ML VIAL IV ONE (00:45)
[2019-11-13 00:54] LABS: INR 1.46; PROTHROMBIN TIME 18.1 SECONDS (11.8-14.0)
[2019-11-13 00:55] LABS: PARTIAL THROMBOPLASTIN TIME 39.5 SECONDS (25.0-38.4)
[2019-11-13] MEDS: MORPHINE 4 MG/ML 1ML VIAL/SYRINGE (J2270) IV PRN ×2 (00:59→03:01)
[2019-11-13 01:19] LABS: ALBUMIN 3.2 GM/DL (3.2-5.2); ALT/SGPT 17 U/L (12-78); BILIRUBIN,DIRECT 0.4 MG/DL (0.0-0.2); BILIRUBIN,TOTAL 1.1 MG/DL (0.2-1.0); BLOOD UREA NITROGEN 3 MG/DL (7-18); CALCIUM LEVEL 8.7 MG/DL (8.5-10.1); CARBON DIOXIDE LEVEL 26 MEQ/L (21-32); CHLORIDE LEVEL 112 MEQ/L (98-107); CREATININE FOR GFR 0.53 MG/DL (0.55-1.30); GLOMERULAR FILTRATION RATE > 60.0 (>60); GLUCOSE, FASTING 88 MG/DL (70-100); LIPASE 183 U/L (73-393); POTASSIUM SERUM 3.7 MEQ/L (3.5-5.1); SODIUM LEVEL 143 MEQ/L (136-145); TOTAL PROTEIN 6.8 GM/DL (6.4-8.2)
--- NOTE | 2019-11-13 01:31 | REPVR ---
PROCEDURE INFORMATION: Exam: CT Abdomen And Pelvis With Contrast Exam date and time: 11/13/2019 12:39 AM Age: 29 years old Clinical indication: Abdominal pain; Generalized; Additional info: Generalized abd pain, HX of untreated choley TECHNIQUE: Imaging protocol: Computed tomography of the abdomen and pelvis with intravenous contrast. Radiation optimization: All CT scans at this facility use at least one of these dose optimization techniques: automated exposure control; mA and/or kV adjustment per patient size (includes targeted exams where dose is matched to clinical indication); or iterative reconstruction. Contrast material: ISO; Contrast volume: 100 ml; Contrast route: INTRAVENOUS (IV); COMPARISON: CT ABD/PEL W/PO CONTRAST ONLY 11/08/2019 12:26 AM FINDINGS: Lungs: No suspicious mass or airspace process in the visualized lung bases. Liver: Liver demonstrates no focal lesion. Small volume of perihepatic fluid, transudate density. Gallbladder and bile ducts: Gallbladder wall may be edematous. No calcified stone or duct obstruction. Pancreas: Pancreas appears normal. No focal mass or peripancreatic inflammation. Spleen: Spleen is diffusely enlarged, without focal lesion. Adrenals: Adrenal glands are normal in appearance. Kidneys and ureters: Kidneys appear normal, with no stone, solid mass or hydronephrosis. Stomach and bowel: No evidence of small bowel obstruction. Colon is under distended and contains multiple diverticula. No acute inflammation. Appendix: Appendix is not seen. No RLQ inflammation to suggest appendicitis. Intraperitoneal space: No pneumoperitoneum. Trace free fluid is present in the pelvis. Vasculature: Main portal and splenic veins enhance normally. No aortic aneurysm. Lymph nodes: No enlarged lymph nodes. Bladder: Urinary bladder appears normal. Bones/joints: Bony structures show no acute fracture or destructive process. IMPRESSION: Circumferential gallbladder wall thickening or without evidence of calcified stone or duct obstruction. Findings could represent cholecystitis as was questioned recently on ultrasound from November 07 Electronically signed by: Enrique Grant On 11/13/2019 01:30:35 AM
--- NOTE | 2019-11-13 01:45 | REPVR ---
PROCEDURE INFORMATION: Exam: US Abdomen, Limited; Right Upper Quadrant Exam date and time: 11/13/2019 1:30 AM Age: 29 years old Clinical indication: Abdominal pain; Acute; Additional info: Abd pain, HX of untreated choley TECHNIQUE: Imaging protocol: US abdomen. Real time ultrasound with image documentation. Limited exam focused on the right upper quadrant. COMPARISON: GALLBLADDER US 05/14/2019 4:09 PM FINDINGS: Liver: Liver is diffusely echogenic, without focal lesion. Gallbladder: Gallbladder demonstrates wall thickening to 5 mm. No stone. Common bile duct: Common bile duct measures 3-4 mm in diameter. Pancreas: Pancreas is only partially visualized due to bowel shadowing. No overt abnormailty. Right kidney: Right kidney measures 11.8 cm in long axis. Right kidney appears normal. Intraperitoneal space: Trace volume of fluid around the bladder as described on CT. IMPRESSION: Circumferential mild gallbladder wall thickening to 5 mm. No stone or duct obstruction. Findings could represent acalculous cholecystitis as discussed previously Electronically signed by: Enrique Grant On 11/13/2019 01:45:03 AM
[2019-11-13] MEDS ORDERED: CIPROFLOXACIN 400 MG in IV 1 EA IV ONE (02:45)
[2019-11-13] MEDS ORDERED: metroNIDAZOLE 500 MG in IV 1 EA IV ONE (02:45)
[2019-11-13 03:17] LABS: PERCENT SATURATION 5.7 % (13.2-45.0)
[2019-11-13] MEDS ORDERED: MORPHINE 2 MG/ML 1ML VIAL (J2270) IV PRN (03:30)
[2019-11-13] MEDS ORDERED: METOCLOPRAMIDE INJ 10MG/2ML VIAL (J2765 PER 1) IV PRN (03:30)
[2019-11-13] MEDS ORDERED: KETOROLAC 30 MG/ML 1ML VIAL IV ONE (03:30)
[2019-11-13] MEDS ORDERED: ACETAMINOPHEN TAB 650MG DOSE (2X325MG) PO PRN (03:30)
[2019-11-13] MEDS ORDERED: NS 1,000 ML IV ONE (03:30)
[2019-11-13] MEDS ORDERED: HEAL1TAB6 PO (03:43)
[2019-11-13] MEDS ORDERED: OMEP-218 PO (03:43)
[2019-11-13] MEDS ORDERED: METR-265 PO (03:43)
[2019-11-13] MEDS ORDERED: CIPR500T3 PO (03:43)
[2019-11-13] MEDS ORDERED: [UNRECOGNIZED DRUG - OTHER] PO (03:43)
--- NOTE | 2019-11-13 04:25 | HPEPDOC ---
[facility] Medical History & Physical Date of Admission Nov 13, 2019 Date of Service: Nov 13, 2019 Other Provider PCP: [place] ortiz Attending Physician: JOY MCKEON MD History and Physical CHIEF COMPLAINT: Abdominal Pain HISTORY OF PRESENT ILLNESS: Patient presents after recent discharge on 11/11/2019 for acalculous cholecystitis with abdominal pain, nausea, and a single episode o f NBNB emesis. During her prior admission she was diagnosed with acalculous cholecystitis with that was deemed inappropriate for cholecystostomy tube by IR and did not require surgical intervention. She states she was able to tolerate some oral intake on discharge and when she went home she was doing ok, but eating very little due to her abdominal discomfort that was largely unchanged from her prior admission. She slept through the night without incident and was feeling ok the morning of 11/11, however she began to experience progressively worsening abdominal discomfort, nausea, vomiting, and eventual cold sweats that led to her returning to the emergency department. 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 Work up in the ED showed today showed improved or normal lab values on blood work, with CT and US showing signs consistent with her prior diagnosis of acalculous cholecystitis. The hospitalist team was called to admit the patient for pain control. PAST MEDICAL HISTORY: #. Alcoholic liver cirrhosis #. Refractory anemia #. Hx of Alcoholic pancreatitis #. Hx of ascites #. Anxiety disorder #. Hx of induced #. Hx of UGIB #. Tobacco use disorder #. Biliary Dyskinesia PAST SURGICAL HISTORY: Novice teeth extraction SOCIAL HISTORY: 1 Pack per week smoker, denies EtOH use since 02/2019 (previously drank 1 liter/day for 6 years), denies illicit drug use. 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 FAMILY HISTORY: Mother from brain aneurysm ALLERGIES: Please see below. REVIEW OF SYSTEMS: Constitutional: Denies weight loss, change in appetite, or recent trauma Eyes: No visual changes or eye pain Ears, Nose, Throat: Denies nose bleeds, or difficulty swallowing Cardiovascular: Denies chest pain, sweating, or orthopnea Respiratory: Denies cough, wheezing, or shortness of breath GI: Denies constipation, diarrhea, last BM on 11/11, admits to N/V, abdominal pain as above. : Denies pain with urination or frequency Musculoskeletal: Denies joint pain or swelling Neuro / Psych: Denies muscle weakness or sensory loss Skin: No skin rashes noted HOME MEDICATIONS: Please see below. PHYSICAL EXAMINATION: GENERAL APPEARANCE: Pleasant, well appearing female in NAD laying in bed. HEENT: NC, AT, EOMI, no scleral icterus, moist mucous membranes, CARDIOVASCULAR: RRR, +S1S2, - Murmurs / rubs / gallops LUNGS: : CTAb with full breath sounds, No wheezing / rales / rhonchi ABDOMEN: Soft, Non-distended, tender to palpation over epigastrium, diminished bowel sounds. EXTREMITIES: No lower extremity edema, No calf tenderness NEUROLOGICAL: No focal motor or sensory deficits. A/Ox3. PSYCHIATRIC: Normal mood and affect SKIN: No visible rashes or lesions LABORATORY DATA: See below. IMAGIN11/13/2019 CT abd/pelvis w/ IV contrast only: IMPRESSION: Circumferential gallbladder wall thickening or without evidence of calcified stone or duct obstruction. Findings could represent cholecystitis as was questioned recently on ultrasound from November 07. 11/13/2019 Gallbladder U/S: IMPRESSION: Circumferential mild gallbladder wall thickening to 5 mm. No stone or duct obstruction. Findings could represent acalculous cholecystitis as discussed previously MICROBIOLOGY: Please see below. ASSESSMENT/PLAN: #. Acalculous cholecystitis -Suspect her discomfort is inflammatory in nature -Will continue with IV cipro/flagyl as patient was scheduled to outpatient since she missed a day. -HIDA scan showing EF 20% from Dr. Pedro Branch in 03/2019 (under scanned report), consistent with biliary dyskinesia, may be appropriate operative candidate given this finding, AM team can reach out to surgery for their recommendations. -Advance diet as tolerated. -Will give toradol to see if this helps with her inflammatory pain, morphine as needed for more severe pain. #. Microcytic anemia -Patient required a transfusion during her most recent inpatient stay, but no signs of acute blood loss anemia either last time or now on exam/by history. She is following with oncology for refractory anemia and IV iron infusions. -Ferritin/iron levels low consistent with iron deficiency anemia. -Daytime team to reach out to heme/onc office to see last time she received an iron infusion and whether she needs to be seen again for same. -Continue to monitor H/H #. Liver cirrhosis - No active signs of liver inflammation currently. - Meld-Na score of 11, patient should see decorator hand outpatient - Child Bejarano class A, #. Elevated INR -Consistent with her liver disease #. Hx of UGIB -Continue home PPI #. Anxiety disorder -Continue prn home meds DVT prophylaxis: Teds/seqs GI prophylaxis: Continue home PPI CODE status: Full code Dispo: Observation. Vital Signs Vital Signs Date Time Temp Pulse Resp B/P (MAP) Pulse Ox O2 Delivery O2 Flow Rate FiO2 11/13/19 03:12 98.1 11/13/19 03:01 18 11/13/19 02:17 57 136/79 (98) 97 11/13/19 00:59 Room Air Laboratory Data Labs 24H Laboratory Tests 2 11/13/19 00:10: Immature Granulocyte % (Auto) 0.8, Neutrophils (%) (Auto) 59.2, Lymphocytes (%) (Auto) 23.2L, Monocytes (%) (Auto) 11.7H, Eosinophils (%) (Auto) 4.3H, Basophils (%) (Auto) 0.8, Neutrophils # (Auto) 3.6, Lymphocytes # (Auto) 1.4L, Monocytes # (Auto) 0.7, Eosinophils # (Auto) 0.3, Basophils # (Auto) 0.1, Nucleated Red Blood Cells % (auto) 0.0, Anion Gap 5L, Glomerular Filtration Rate > 60.0, Calcium Level 8.7, Iron Level 27L, Total Iron Binding Capacity 473H, Transferrin % Saturation 5.7L, Ferritin 13, Total Bilirubin 1.1H, Direct Bilirubin 0.4H, Aspartate Amino Transf (AST/SGOT) 29, Alanine Aminotransferase (ALT/SGPT) 17, Alkaline Phosphatase 117, Total Protein 6.8, Albumin 3.2, Albumin/Globulin Ratio 0.9L, Lipase 183 11/13/19 00:25: Prothrombin Time 18.1H, Prothromb Time International Ratio 1.46, Activated Partial Thromboplast Time 39.5H, Lactic Acid Level 1.3 CBC/BMP Laboratory Tests 11/13/19 00:10 Home Medications Scheduled Ciprofloxacin HCl (Ciprofloxacin HCl) 500 Mg Tablet, 500 MG PO BID HAS NOT STARTED YET Etonogestrel (Nexplanon) 68 Mg Implant, 68 MG IM ASDIRECTED IMPLANTED MAY 2018 Gabapentin (Gabapentin) 400 Mg Capsule, 400 MG PO TID Metronidazole (Metronidazole) 500 Mg Tablet, 500 MG PO Q8H HAS NOT STARTED YET Multivitamin/Folic Acid/Biotin (Hair, Skin and Nails Tablet) 1 Each Tablet, 2 TAB PO BID Omeprazole (Omeprazole) 20 Mg Capsule.dr, 20 MG PO DAILY HAS NOT STARTED YET Tizanidine HCl (Tizanidine HCl) 4 Mg Tablet, 4 MG PO TID Scheduled PRN Alprazolam (Alprazolam) 0.25 Mg Tablet, 0.25 MG PO TID PRN for ANXIETY Ondansetron (Ondansetron Odt) 4 Mg Tab.rapdis, 4 MG PO Q6H PRN for NAUSEA OR VOMITING HAS NOT STARTED YET [Zzzquil Pure Z's] , 2 TAB PO QHS PRN for INSOMNIA Allergies Coded Allergies: Iodinated Contrast Media (Verified Allergy, Intermediate, HIVES, 11/07/19) A-FIB/CHADSVASC A-FIB History Current/History of A-Fib/PAF?: No GME ATTESTATION GME ATTESTATION My faculty preceptor for this patient encounter was physically present during the encounter and was fully available. All aspects of the patient interview, examination, medical decision making process, and medical care plan development were reviewed and approved by the faculty preceptor. The faculty preceptor is aware and concurs with the plan as stated in the body of this note and will attest to such by his/her cosignature. GME ATTESTATION GME ATTESTATION My faculty preceptor for this patient encounter was physically present during the encounter and was fully available. All aspects of the patient interview, examination, medical decision making process, and medical care plan development were reviewed and approved by the faculty preceptor. The faculty preceptor is aware and concurs with the plan as stated in the body of this note and will attest to such by his/her cosignature. ATTENDING NOTE Time of service 405AM Ms. Loaiza is a 29 yr old w a hx of liver cirrhosis, chronic anemia, anxiety & recent admission for acalculous cholecystitis who returned to the hospital a few days after discharge bc she was not able to fill scripts for her meds; she is admitted for abdominal pain possibly 2/2 acalculous cholecystitis vs biliary dyskinesia based on a HIDA scan done at an outside facility - we will resume abx, and ask the day time team to consider re-consulting Gen Surg SLADE CRESPO DO Nov 13, 2019 04:25 JOY MCKEON MD Nov 13, 2019 05:50
[2019-11-13 04:30] VITALS: BP 133/76
[2019-11-13] MEDS: ALPRAZolam 0.25 MG TAB PO PRN ×2 (05:03→13:20)
[2019-11-13 05:46] LABS: HEMATOCRIT 37.3 % (36.0-47.0); HEMOGLOBIN 11.6 g/dl (12.0-15.5); MEAN CORPUSCULAR HEMOGLOBIN 23.4 pg (27.0-33.0); MEAN CORPUSCULAR HGB CONC 31.1 g/dl (32.0-36.5); MEAN CORPUSCULAR VOLUME 75.2 fl (80.0-96.0); PLATELET COUNT, AUTOMATED 201 10^3/uL (150-450); RED BLOOD COUNT 4.96 10^6/uL (4.00-5.40); WHITE BLOOD COUNT 4.4 10^3/uL (4.0-10.0)
[2019-11-13 06:00] VITALS: BP 124/72
[2019-11-13 06:45] LABS: BLOOD UREA NITROGEN 3 MG/DL (7-18); CALCIUM LEVEL 8.8 MG/DL (8.5-10.1); CARBON DIOXIDE LEVEL 24 MEQ/L (21-32); CHLORIDE LEVEL 108 MEQ/L (98-107); CREATININE FOR GFR 0.78 MG/DL (0.55-1.30); GLOMERULAR FILTRATION RATE > 60.0 (>60); GLUCOSE, FASTING 184 MG/DL (70-100); POTASSIUM SERUM 3.6 MEQ/L (3.5-5.1); SODIUM LEVEL 138 MEQ/L (136-145)
[2019-11-13] MEDS: GABAPENTIN 400 MG CAP PO SCH ×3 (10:37→20:26)
[2019-11-13] MEDS: tiZANidine 4 MG TAB PO SCH ×3 (10:37→20:26)
[2019-11-13] MEDS: OMEPRAZOLE 20 MG CAP PO SCH (10:37)
[2019-11-13] MEDS ORDERED: NS 1,000 ML IV SCH (13:00)
[2019-11-13] MEDS: metroNIDAZOLE 500 MG in IV 1 EA IV SCH ×2 (13:09→20:27)
[2019-11-13] MEDS: KETOROLAC 30 MG/ML 1ML VIAL IV SCH ×2 (13:11→20:27)
[2019-11-13 14:00] VITALS: BP 121/57
--- NOTE | 2019-11-13 14:54 | REPVR ---
PROCEDURE INFORMATION: Exam: MR Abdomen Without Contrast Exam date and time: 11/13/2019 12:06 PM Age: 29 years old Clinical indication: Abdominal pain; Generalized; Patient HX: Mrcp; Additional info: Abn lfts TECHNIQUE: Imaging protocol: MR of the abdomen without contrast. 3D rendering (Not supervised by radiologist): MIP and/or 3D reconstructed images were created by the technologist. COMPARISON: 1. CT ABD/PEL W/IV CONTRAST ONLY 11/13/2019 1:08 AM 2. GALLBLADDER US 11/13/2019 1:11:53 AM FINDINGS: Limitations: Lack of intravenous contrast material limits evaluation of the vascular and visceral structures. Liver: Unremarkable as visualized. Gallbladder and bile ducts: No gallstones. No gallbladder wall thickening. No abnormal gallbladder distension. No pericholecystic fluid. No intrahepatic ductal dilatation. Common bile duct measures up to 4 mm. No evidence of choledocholithiasis. Pancreas: Unremarkable. No ductal dilation. Spleen: The spleen measures 15.4 cm in length. Adrenals: Unremarkable. No mass. Kidneys and ureters: Unremarkable. No hydronephrosis. Stomach and bowel: Moderate gastric distention. Intraperitoneal space: Trace ascites. Arteries: No abdominal aortic aneurysm. Bones/joints: Unremarkable. Soft tissues: Unremarkable. IMPRESSION: 1. No abnormal biliary ductal dilatation. 2. Mild splenomegaly. 3. Trace ascites. Electronically signed by: Kelsey Castillo On 11/13/2019 14:54:32 PM
[2019-11-13] MEDS: NS 1,000 ML IV SCH ×2 (15:57→23:25)
[2019-11-13] MEDS: MORPHINE 2 MG/ML 1ML VIAL (J2270) IV PRN ×2 (15:57→23:25)
[2019-11-13] MEDS: CIPROFLOXACIN 200 MG in IV 1 EA IV SCH (15:57)
[2019-11-13 22:00] VITALS: BP 117/66
[2019-11-14] MEDS: ALPRAZolam 0.25 MG TAB PO PRN (00:47)
[2019-11-14] MEDS: NS 1,000 ML IV SCH (01:30)
[2019-11-14] MEDS: CIPROFLOXACIN 200 MG in IV 1 EA IV SCH ×2 (03:55→14:28)
[2019-11-14] MEDS: MORPHINE 2 MG/ML 1ML VIAL (J2270) IV PRN ×2 (03:56→10:23)
[2019-11-14] MEDS: metroNIDAZOLE 500 MG in IV 1 EA IV SCH ×3 (04:52→20:23)
[2019-11-14] MEDS: KETOROLAC 30 MG/ML 1ML VIAL IV SCH ×3 (04:52→20:22)
[2019-11-14 06:00] VITALS: BP 116/67
[2019-11-14 06:59] LABS: HEMATOCRIT 32.1 % (36.0-47.0); HEMOGLOBIN 9.8 g/dl (12.0-15.5); MEAN CORPUSCULAR HEMOGLOBIN 23.2 pg (27.0-33.0); MEAN CORPUSCULAR HGB CONC 30.5 g/dl (32.0-36.5); MEAN CORPUSCULAR VOLUME 76.1 fl (80.0-96.0); PLATELET COUNT, AUTOMATED 168 10^3/uL (150-450); RED BLOOD COUNT 4.22 10^6/uL (4.00-5.40); WHITE BLOOD COUNT 6.9 10^3/uL (4.0-10.0)
[2019-11-14 07:35] LABS: BLOOD UREA NITROGEN 4 MG/DL (7-18); CARBON DIOXIDE LEVEL 23 MEQ/L (21-32); CHLORIDE LEVEL 115 MEQ/L (98-107); CREATININE FOR GFR 0.52 MG/DL (0.55-1.30); GLOMERULAR FILTRATION RATE > 60.0 (>60); GLUCOSE, FASTING 94 MG/DL (70-100); POTASSIUM SERUM 3.2 MEQ/L (3.5-5.1); SODIUM LEVEL 145 MEQ/L (136-145)
[2019-11-14] MEDS: OMEPRAZOLE 20 MG CAP PO SCH (10:21)
[2019-11-14] MEDS: GABAPENTIN 400 MG CAP PO SCH ×3 (10:21→20:22)
[2019-11-14] MEDS: tiZANidine 4 MG TAB PO SCH ×3 (10:21→20:22)
[2019-11-14] MEDS ORDERED: FLAG500T PO (13:00)
[2019-11-14] MEDS ORDERED: CIPR-249 PO (13:00)
[2019-11-14] MEDS: MORPHINE 30 MG TAB **MSIR PO SCH ×3 (13:07→23:59)
[2019-11-14] MEDS: METOCLOPRAMIDE INJ 10MG/2ML VIAL (J2765 PER 1) IV SCH ×3 (13:08→20:22)
[2019-11-14] MEDS ORDERED: POTASSIUM CHLORIDE 10 MEQ SR TABLET PO ONE (13:30)
[2019-11-14 14:00] VITALS: BP 116/65
[2019-11-14 22:00] VITALS: BP 128/79
[2019-11-15] MEDS: ALPRAZolam 0.25 MG TAB PO PRN ×2 (01:35→08:20)
[2019-11-15] MEDS: CIPROFLOXACIN 200 MG in IV 1 EA IV SCH (03:20)
[2019-11-15] MEDS: metroNIDAZOLE 500 MG in IV 1 EA IV SCH (03:21)
[2019-11-15] MEDS: KETOROLAC 30 MG/ML 1ML VIAL IV SCH (03:21)
[2019-11-15 06:00] VITALS: BP 135/79
[2019-11-15] MEDS: MORPHINE 30 MG TAB **MSIR PO SCH (06:24)
[2019-11-15 06:40] LABS: HEMATOCRIT 33.6 % (36.0-47.0); HEMOGLOBIN 10.4 g/dl (12.0-15.5); MEAN CORPUSCULAR HEMOGLOBIN 23.4 pg (27.0-33.0); MEAN CORPUSCULAR VOLUME 75.5 fl (80.0-96.0); PLATELET COUNT, AUTOMATED 164 10^3/uL (150-450); RED BLOOD COUNT 4.45 10^6/uL (4.00-5.40); WHITE BLOOD COUNT 4.5 10^3/uL (4.0-10.0)
[2019-11-15 07:18] LABS: BLOOD UREA NITROGEN 3 MG/DL (7-18); CALCIUM LEVEL 8.7 MG/DL (8.5-10.1); CARBON DIOXIDE LEVEL 24 MEQ/L (21-32); CHLORIDE LEVEL 109 MEQ/L (98-107); CREATININE FOR GFR 0.52 MG/DL (0.55-1.30); GLOMERULAR FILTRATION RATE > 60.0 (>60); GLUCOSE, FASTING 91 MG/DL (70-100); POTASSIUM SERUM 3.3 MEQ/L (3.5-5.1); SODIUM LEVEL 140 MEQ/L (136-145)
[2019-11-15] MEDS: GABAPENTIN 400 MG CAP PO SCH (08:20)
[2019-11-15] MEDS: METOCLOPRAMIDE INJ 10MG/2ML VIAL (J2765 PER 1) IV SCH (08:20)
[2019-11-15] MEDS: OMEPRAZOLE 20 MG CAP PO SCH (08:20)
[2019-11-15] MEDS: tiZANidine 4 MG TAB PO SCH (08:20)
--- NOTE | 2019-11-15 12:12 | IPN ---
DATE: 11/13/2019 SUBJECTIVE: Patient complains of severe pain in the epigastric area radiating to the back. No fever or chills. No nausea or vomiting. Patient is tearful this morning due to poor IV access with seven attempts for peripheral line placement. PHYSICAL EXAMINATION: VITAL SIGNS: Temperature 98.2, pulse 67, respiratory rate 17, blood pressure 124/72, 97% on room air. GENERAL: Awake, alert and oriented to person, place and time, answering questions appropriately. LUNGS: Clear to auscultation. No wheezing, rales or rhonchi. HEART: S1 and S2, sinus rhythm. ABDOMEN: Soft, tender in the epigastric region. No rebound or guarding. Positive bowel sounds. EXTREMITIES: No cyanosis, clubbing or edema. LABORATORY DATA: Laboratory data has been reviewed. ASSESSMENT AND PLAN: This is a patient who was discharged on 11/10 for acalculous cholecystitis treated with IV Zosyn, discharged home, did not take her medications at home and then presented to the Emergency Room for abdominal pain. IMPRESSION: 1. Acalculous cholecystitis. 2. History of alcoholic liver cirrhosis. 3. Refractory anemia. 4. History of alcoholic pancreatitis. 5. Ascites with paracentesis. 6. Anxiety disorder. 7. Induced . 8. Upper GI bleed. 9. Tobacco abuse. 10. Biliary dyskinesia. PLAN: Continue with NPO status, PICC line placement, IV fluids and pain medications. Resume on home medications; Gabapentin, Prilosec, Zanaflex and Xanax. Morphine as needed for pain and Reglan as needed for nausea,complete 7days course of Cipro and Flagyl. [facility]
--- NOTE | 2019-11-15 13:15 | DS.PDOC ---
Discharge Summary General Date of Admission Nov 13, 2019 at 02:53 Date of Discharge 11/15/19 Discharge Summary DISCHARGE DIAGNOSES: 1. Acalculous cholecystitis. 2. History of alcoholic liver cirrhosis. 3. Refractory anemia. 4. History of alcoholic pancreatitis. 5. Ascites with paracentesis. 6. Anxiety disorder. 7. Induced . 8. Upper GI bleed. 9. Tobacco abuse. 10. Biliary dyskinesia. DISCHARGE MEDICATIONS: PLS SEE BELOW HOSPITAL COURSE: This is a patient who was discharged on 11/10 for acalculouscholecystitis treated with IV Zosyn, discharged home, did not take her medications at home and then presented to the Emergency Room for recurrent epigastric abdominal pain 6/10 ach y on and off, stabbing at times without n/v/f/chills at home, re-admitted with normal lft's lipase,and improved inflammation on repeat CT abd/pelvis. She was kept npo, ns 200ml/hr, and prn pain meds with morphine, with resolution of symptoms. She remained afebrile with no chills or worsening symptoms on iv cipro and flagy. Diet was advanced to low fat low cholesterol which she tolerated with 3-5/10 pain. Pt was discharged in stable condition with immediate fu with her glass maker on 11/15/19. DISCHARGE PHYSICAL EXAMINATION: VITALS: PLS SEE BELOW GENERAL: Awake, alert and oriented to person, place and time, answering questions appropriately. LUNGS: Clear to auscultation. No wheezing, rales or rhonchi. HEART: S1 and S2, sinus rhythm. ABDOMEN: Soft, tender in the epigastric region. No rebound or guarding. Positivebowel sounds. EXTREMITIES: No cyanosis, clubbing or edema. LABORATORY DATA/IMAGING STUDIES/MICROBIOLOGY: SEE BELOW TIME SPENT ON DISCHARGE: 30 MIN PLAN: Continue with NPO status, PICC line placement, IV fluids and pain medications. Resume on home medications; Gabapentin, Prilosec, Zanaflex and Xanax. Morphine as needed for pain and Reglan as needed for nausea,complete 7days course of Cipro and Flagyl. Vital Signs/I&Os Vital Signs Date Time Temp Pulse Resp B/P (MAP) Pulse Ox O2 Delivery O2 Flow Rate FiO2 11/15/19 06:54 18 Room Air 11/15/19 06:00 98.6 72 135/79 (97) 96 I&O- Last 24 Hours up to 6 AM 11/15/19 06:00 Intake Total 3580 ml Output Total 1900 ml Balance 1680 ml Laboratory Data Labs 24H Laboratory Tests 2 11/15/19 06:15: Nucleated Red Blood Cells % (auto) 0.0, Anion Gap 7L, Glomerular Filtration Rate > 60.0, Calcium Level 8.7 CBC/BMP Laboratory Tests 11/15/19 06:15 Discharge Medications Scheduled Ciprofloxacin HCl (Ciprofloxacin HCl) 500 Mg Tablet, 500 MG PO BID, (Reported) HAS NOT STARTED YET Ciprofloxacin HCl (Cipro) 500 Mg Tablet, 500 MG PO BID Etonogestrel (Nexplanon) 68 Mg Implant, 68 MG IM ASDIRECTED, (Reported) IMPLANTED MAY 2018 Gabapentin (Gabapentin) 400 Mg Capsule, 400 MG PO TID, (Reported) Metronidazole (Metronidazole) 500 Mg Tablet, 500 MG PO Q8H, (Reported) HAS NOT STARTED YET Metronidazole (Flagyl) 500 Mg Tablet, 500 MG PO Q8H FOR 10 DAYS Multivitamin/Folic Acid/Biotin (Hair, Skin and Nails Tablet) 1 Each Tablet, 2 TAB PO BID, (Reported) Omeprazole (Omeprazole) 20 Mg Capsule.dr, 20 MG PO DAILY, (Reported) HAS NOT STARTED YET Tizanidine HCl (Tizanidine HCl) 4 Mg Tablet, 4 MG PO TID, (Reported) Scheduled PRN Alprazolam (Alprazolam) 0.25 Mg Tablet, 0.25 MG PO TID PRN for ANXIETY, (Reported) Ondansetron (Ondansetron Odt) 4 Mg Tab.rapdis, 4 MG PO Q6H PRN for NAUSEA OR VOMITING, (Reported) HAS NOT STARTED YET [Zzzquil Pure Z's] , 2 TAB PO QHS PRN for INSOMNIA, (Reported) Allergies Coded Allergies: Iodinated Contrast Media (Verified Allergy, Intermediate, HIVES, 11/07/19) MIKO HARLEY MD Nov 15, 2019 13:15
--- NOTE | 2019-11-16 14:09 | IPN ---
DATE: 11/14/2019 SUBJECTIVE: The patient reports persistent nausea without vomiting. No abdominal pain noted with her liquid diet. She is not complaining of any fever or chills, the epigastric pain has improved, and when it does come on it is rated at 3-5/10, described as achy, at times stabbing, on and off throughout the day, better with IV Morphine which alleviates to about a 2/10. PHYSICAL EXAMINATION: VITAL SIGNS: Temperature 98.6, pulse 58, respiratory rate 18, blood pressure 116/67, 94% on room air. GENERAL: Awake, alert and oriented to person, place and time, answering questions appropriately. LUNGS: Clear to auscultation. No wheezing, rales or rhonchi. HEART: S1 and S2, sinus rhythm. ABDOMEN: Soft, slight tender in the epigastric region. No rebound or guarding. Positive bowel sounds x4 quadrants. EXTREMITIES: No cyanosis, clubbing or pitting edema. LABORATORY DATA: White count 6.9, hemoglobin 9.8, hematocrit 32, platelet count 168,000, sodium 145, potassium 3.2, chloride 115, bicarbonate 23, BUN 4, creatinine 0.5, glucose 94. ASSESSMENT AND PLAN: This is a 29-year-old female with a history of alcohol abuse, alcoholic liver cirrhosis with history of upper GI bleed, no varices, recently discharged on October 10 with acute cholecystitis, was noncompliant with her medications and returned with worsening pain. No fever or elevated white count. CURRENT ISSUES: 1. Acute cholecystitis. 2. Alcoholic liver cirrhosis, history of alcoholic pancreatitis. 3. History of upper GI bleed. 4. Tobacco abuse. 5. Biliary dyskinesia. 6. History of anxiety disorder. PLAN: Patient is continued on IV Cipro and Flagyl, Toradol q. 8 hourly, Morphine as needed, will start MSIR 15 q. 6, Reglan 10 IV q. a.c. h.s., advance diet to low fat, low cholesterol, continue with potassium supplementation, possible discharge in one to two days. MTDD
[2019-11-16] MEDS ORDERED: CARA1TAB6 PO (21:04)
== END 2019-11-15 10:38 | disposition home or self-care (01) | DRG 446 ==
LOC: M ED 23:24 → M ED INP 11-13 02:53 → M MS5PR 11-13 04:30
PROVIDERS: ADMIT Internal Medicine; ATTEND General Practice
DX: K81.0 Acute cholecystitis (principal); F17.200 Nicotine dependence, unspecified, uncomplicated; F41.9 Anxiety disorder, unspecified; D46.4 Refractory anemia, unspecified; K70.31 Alcoholic cirrhosis of liver with ascites; K82.8 Other specified diseases of gallbladder; Z91.041 Radiographic dye allergy status; Z79.899 Other long term (current) drug therapy

== ENCOUNTER 2019-11-16 15:39 | Emergency (ER) | payer OTHER ==
[~2019-11-16] VITALS: Ht 162.6 cm; Wt 63.8 kg
[~2019-11-16 15:39] MED LIST changes: +CIPR-249 PO; +CIPR500T3 PO; +HEAL1TAB6 PO; +METR-265 PO; +[UNRECOGNIZED DRUG - OTHER] PO
[2019-11-16] MEDS ORDERED: METOCLOPRAMIDE INJ 10MG/2ML VIAL (J2765 PER 1) IV ONE (16:15)
[2019-11-16] MEDS ORDERED: KCL 10MEQ/100ML SWI (KRUN) 10 MEQ in IV 1 EA IV ONE ×2 (16:15→17:00)
[2019-11-16] MEDS ORDERED: MORPHINE 4 MG/ML 1ML VIAL/SYRINGE (J2270) IV PRN (16:15)
[2019-11-16] MEDS ORDERED: POTASSIUM CHLORIDE 10 MEQ SR TABLET PO ONE (16:15)
[2019-11-16] MEDS ORDERED: NS 1,000 ML IV ONE ×2 (16:15→17:45)
[2019-11-16 16:23] LABS: BASO # 0.1 10^3/uL (0.0-0.2); BASO % 1.1 % (0.0-1.0); EOS # 0.1 10^3/uL (0.0-0.5); EOS % 0.9 % (0.0-3.0); HEMATOCRIT 37.7 % (36.0-47.0); HEMOGLOBIN 11.9 g/dl (12.0-15.5); LYMPH % 16.8 % (24.0-44.0); MEAN CORPUSCULAR HEMOGLOBIN 23.2 pg (27.0-33.0); MEAN CORPUSCULAR HGB CONC 31.6 g/dl (32.0-36.5); MEAN CORPUSCULAR VOLUME 73.3 fl (80.0-96.0); MONO # 0.5 10^3/uL (0.0-0.8); MONO % 8.7 % (0.0-5.0); NEUTROPHILS # 4.1 10^3/uL (1.5-8.5); NEUTROPHILS % 72.1 % (36.0-66.0); PLATELET COUNT, AUTOMATED 184 10^3/uL (150-450); RED BLOOD COUNT 5.14 10^6/uL (4.00-5.40); WHITE BLOOD COUNT 5.7 10^3/uL (4.0-10.0)
[2019-11-16 16:33] LABS: INR 1.39; PROTHROMBIN TIME 17.4 SECONDS (11.8-14.0)
[2019-11-16 16:34] LABS: PARTIAL THROMBOPLASTIN TIME 42.2 SECONDS (25.0-38.4)
[2019-11-16 16:48] LABS: ALT/SGPT 22 U/L (12-78); AMYLASE 61 U/L (25-115); BILIRUBIN,DIRECT 0.6 MG/DL (0.0-0.2); BILIRUBIN,TOTAL 1.9 MG/DL (0.2-1.0); BLOOD UREA NITROGEN 2 MG/DL (7-18); CARBON DIOXIDE LEVEL 22 MEQ/L (21-32); CHLORIDE LEVEL 107 MEQ/L (98-107); CK-MB VALUE MASS < 1.0 NG/ML (<3.6); CPK CREATINE PHOSPHOKINASE 103 U/L (26-192); ETHYL ALCOHOL (ETHANOL) < 0.003 % (0.000-0.010); GLOMERULAR FILTRATION RATE > 60.0 (>60); GLUCOSE, FASTING 107 MG/DL (70-100); LIPASE 124 U/L (73-393); MB/CK RELATIVE INDEX 0.97 (< OR =4); POTASSIUM SERUM 3.2 MEQ/L (3.5-5.1); SODIUM LEVEL 139 MEQ/L (136-145); TOTAL PROTEIN 8.5 GM/DL (6.4-8.2); TROPONIN I < 0.02 NG/ML (< 0.10)
--- NOTE | 2019-11-16 17:36 | REPVR ---
PROCEDURE INFORMATION: Exam: US Abdomen, Limited; Right Upper Quadrant Exam date and time: 11/16/2019 4:43 PM Age: 29 years old Clinical indication: Abdominal pain; Epigastric; Additional info: Ruq/epigastric pain that began last night , on antibiotics TECHNIQUE: Imaging protocol: US abdomen. Real time ultrasound with image documentation. Limited exam focused on the right upper quadrant. COMPARISON: 1. GALLBLADDER US 11/13/2019 1:[address] ABD/PEL W/IV CONTRAST ONLY 11/13/2019 1:08:07 AM 3. MRI ABDOMEN WITHOUT CONTRAST 11/13/2019 11:48:19 AM FINDINGS: Liver: Normal. No masses. Gallbladder: Gallbladder wall is again thickened, measuring 6 mm. No gallstones, sludge, or pericholecystic fluid. Assessment of a sonographic Ngo sign was not reported by the scanning farmer diversified crops. Common bile duct: The common bile duct measures 4 mm in caliber. Pancreas: Visualized pancreas is unremarkable. Right kidney: The right kidney is normal in size and echogenicity, measuring 11.8 x 5.9 x 4.2 cm. No hydronephrosis. Intraperitoneal space: No free fluid. IMPRESSION: 1. Persistent gallbladder wall thickening, but no gallstones, sludge, or pericholecystic fluid. Suggest correlation with laboratory studies. Electronically signed by: Carla Zazueta On 11/16/2019 17:36:12 PM
[2019-11-16] MEDS ORDERED: PROMETHAZINE INJ 25 MG/ML VIAL (J2550) IV ONE (18:00)
[2019-11-16] MEDS ORDERED: GI COCKTAIL 50ML BTL(HYOSCYAMINE/MAALOX/LIDOCAINE VISCOUS)(1:3:1) PO ONE (20:00)
[2019-11-16] MEDS ORDERED: HALOPERIDOL 5MG/ML VIAL (J1630 PER 1) IV ONE (20:00)
[2019-11-16] MEDS ORDERED: CARA1TAB6 PO (21:04)
[2019-11-16 21:34] VITALS: BP 130/83
--- NOTE | 2019-11-19 13:15 | ED PDOC ---
Post-Departure Follow-Up ft jamaal romero faxed formal report of gb us for fu Felix Moctezuma MD Nov 19, 2019 13:15
== END 2019-11-16 21:37 | disposition home or self-care (01) ==
LOC: M ED 15:39
DX: R11.10 Vomiting, unspecified (principal); K70.30 Alcoholic cirrhosis of liver without ascites; F17.200 Nicotine dependence, unspecified, uncomplicated; Z79.2 Long term (current) use of antibiotics; Z79.899 Other long term (current) drug therapy; Z79.3 Long term (current) use of hormonal contraceptives; Z87.19 Personal history of other diseases of the digestive system; Z91.041 Radiographic dye allergy status
CPT/HCPCS: 36415; 76705; 80048; 80076; 82150; 82550; 82553; 83605; 83690; 84484; 85025; 85610; 85730; 86850; 86900; 86901; 93041; 96374; 96375; 99284; G0480; J1630; J2270; J2765

== ENCOUNTER 2019-11-29 19:06 | Emergency (ER) | payer OTHER ==
[~2019-11-29] VITALS: Ht 162.6 cm; Wt 57.7 kg
[2019-11-29 19:53] LABS: HEMATOCRIT 43.3 % (36.0-47.0); HEMOGLOBIN 13.4 g/dl (12.0-15.5); MEAN CORPUSCULAR HGB CONC 30.9 g/dl (32.0-36.5); MEAN CORPUSCULAR VOLUME 74.3 fl (80.0-96.0); PLATELET COUNT, AUTOMATED 239 10^3/uL (150-450); RED BLOOD COUNT 5.83 10^6/uL (4.00-5.40); WHITE BLOOD COUNT 8.5 10^3/uL (4.0-10.0)
[2019-11-29 20:05] LABS: AMPHETAMINES LEVEL URINE NEGATIVE (NEGATIVE); BARBITURATES URINE NEGATIVE (NEGATIVE); BENZODIAZEPINES URINE POSITIVE (NEGATIVE); CANNABINOIDS URINE NEGATIVE (NEGATIVE); COCAINE METABOLITE URINE NEGATIVE (NEGATIVE); METHADONE URINE NEGATIVE (NEGATIVE); OPIATES URINE NEGATIVE (NEGATIVE); PHENCYCLIDINE URINE NEGATIVE (NEGATIVE)
[2019-11-29 20:18] LABS: HCG, SERUM QUALITATIVE NEGATIVE (NEGATIVE)
[2019-11-29 20:32] LABS: ACETAMINOPHEN LEVEL < 2.0 UG/ML (10.0-30.0); ALBUMIN 4.3 GM/DL (3.2-5.2); ALT/SGPT 48 U/L (12-78); BILIRUBIN,DIRECT 0.6 MG/DL (0.0-0.2); BILIRUBIN,TOTAL 1.8 MG/DL (0.2-1.0); BLOOD UREA NITROGEN 5 MG/DL (7-18); CALCIUM LEVEL 9.2 MG/DL (8.5-10.1); CARBON DIOXIDE LEVEL 23 MEQ/L (21-32); CHLORIDE LEVEL 106 MEQ/L (98-107); CREATININE FOR GFR 0.62 MG/DL (0.55-1.30); GLOMERULAR FILTRATION RATE > 60.0 (>60); GLUCOSE, FASTING 97 MG/DL (70-100); POTASSIUM SERUM 3.5 MEQ/L (3.5-5.1); SALICYLATE LEVEL 2.8 MG/DL (5.0-30.0); SODIUM LEVEL 140 MEQ/L (136-145); THYROID STIMULATING HORMONE 0.453 uIU/ML (0.358-3.740); TOTAL PROTEIN 8.9 GM/DL (6.4-8.2)
[2019-11-29] MEDS ORDERED: TRAM50TA2 PO (21:45)
[2019-11-29] MEDS ORDERED: BUPR75TA5 PO (21:45)
[2019-11-29] MEDS ORDERED: CARA1TAB6 PO (21:45)
[2019-11-29] MEDS ORDERED: PANT40TA29 PO (21:45)
[2019-11-29] MEDS ORDERED: PATIENT COMMENT (21:46)
[2019-11-29] MEDS ORDERED: LORazepam 2 MG TAB PO PRN (22:30)
[2019-11-30 08:25] VITALS: BP 163/88
[2019-11-30] MEDS ORDERED: FOLIC ACID 1 MG TAB PO SCH (09:00)
[2019-11-30] MEDS ORDERED: THIAMINE 100 MG TAB PO SCH (09:00)
[2019-11-30] MEDS ORDERED: MULTIVITAMINS/MINERALS THERAP 1 TAB PO SCH (09:00)
== END 2019-11-30 08:28 | disposition home or self-care (01) ==
LOC: M ED 19:06
DX: F10.229 Alcohol dependence with intoxication, unspecified (principal); F43.20 Adjustment disorder, unspecified; F33.9 Major depressive disorder, recurrent, unspecified; K74.60 Unspecified cirrhosis of liver; Z79.899 Other long term (current) drug therapy; Z79.3 Long term (current) use of hormonal contraceptives; Z91.041 Radiographic dye allergy status; F17.210 Nicotine dependence, cigarettes, uncomplicated
CPT/HCPCS: 36415; 80048; 80076; 80307; 84443; 84703; 85027; 99284; G0480

== ENCOUNTER 2019-12-08 20:40 | Observation (INO) | payer OTHER ==
[~2019-12-08] VITALS: Ht 162.6 cm; Wt 63.6 kg
[~2019-12-08 20:40] MED LIST changes: +BUPR75TA5 PO; +PATIENT COMMENT
[2019-12-08] MEDS ORDERED: PANTOPRAZOLE 40MG VIAL (C9113 PER 1) IV ONE (21:00)
[2019-12-08] MEDS ORDERED: NS 1,000 ML IV ONE (21:00)
[2019-12-08] MEDS ORDERED: buPROPion 75 MG TAB PO SCH (21:00)
[2019-12-08] MEDS ORDERED: ONDANSETRON 4MG/2ML VIAL IV ONE (21:00)
[2019-12-08] MEDS ORDERED: GABAPENTIN 400 MG CAP PO SCH (21:00)
[2019-12-08 21:23] LABS: BASO % 0.9 % (0.0-1.0); EOS # 0.1 10^3/uL (0.0-0.5); EOS % 2.6 % (0.0-3.0); HEMATOCRIT 35.8 % (36.0-47.0); HEMOGLOBIN 11.4 g/dl (12.0-15.5); LYMPH # 1.1 10^3/uL (1.5-5.0); LYMPH % 24.1 % (24.0-44.0); MEAN CORPUSCULAR HEMOGLOBIN 23.7 pg (27.0-33.0); MEAN CORPUSCULAR HGB CONC 31.8 g/dl (32.0-36.5); MEAN CORPUSCULAR VOLUME 74.4 fl (80.0-96.0); MONO # 0.4 10^3/uL (0.0-0.8); MONO % 8.2 % (0.0-5.0); NEUTROPHILS # 2.9 10^3/uL (1.5-8.5); NEUTROPHILS % 63.8 % (36.0-66.0); RED BLOOD COUNT 4.81 10^6/uL (4.00-5.40); WHITE BLOOD COUNT 4.6 10^3/uL (4.0-10.0)
[2019-12-08 21:34] LABS: INR 1.42; PROTHROMBIN TIME 17.7 SECONDS (12.5-14.3)
[2019-12-08 21:35] LABS: PARTIAL THROMBOPLASTIN TIME 36.7 SECONDS (24.2-38.5)
[2019-12-08 21:40] LABS: PLATELET COUNT, AUTOMATED 80 10^3/uL (150-450)
[2019-12-08] MEDS ORDERED: KCL 10MEQ/100ML SWI (KRUN) 10 MEQ in IV 1 EA IV ONE ×2 (21:45→22:45)
[2019-12-08] MEDS ORDERED: POTASSIUM CHLORIDE 10 MEQ SR TABLET PO ONE (21:45)
[2019-12-08 21:58] LABS: ALT/SGPT 138 U/L (12-78); BILIRUBIN,DIRECT 1.5 MG/DL (0.0-0.2); BILIRUBIN,TOTAL 2.3 MG/DL (0.2-1.0); BLOOD UREA NITROGEN 6 MG/DL (7-18); CALCIUM LEVEL 9.1 MG/DL (8.5-10.1); CARBON DIOXIDE LEVEL 25 MEQ/L (21-32); CHLORIDE LEVEL 95 MEQ/L (98-107); CREATININE FOR GFR 0.66 MG/DL (0.55-1.30); GLOMERULAR FILTRATION RATE > 60.0 (>60); GLUCOSE, FASTING 154 MG/DL (70-100); LIPASE 269 U/L (73-393); POTASSIUM SERUM 2.6 MEQ/L (3.5-5.1); SODIUM LEVEL 133 MEQ/L (136-145); TOTAL PROTEIN 8.5 GM/DL (6.4-8.2)
[2019-12-08 21:59] LABS: ETHYL ALCOHOL (ETHANOL) 0.306 % (0.000-0.010)
--- NOTE | 2019-12-08 22:45 | REPVR ---
PROCEDURE INFORMATION: Exam: XR Complete Acute Abdomen Series Exam date and time: 12/08/2019 9:51 PM Age: 29 years old Clinical indication: Vomiting TECHNIQUE: Imaging protocol: XR complete acute abdomen series, including 2 or more views of the abdomen and a single view chest. COMPARISON: CT Chest with contrast 09/18/2019 10:11 PM FINDINGS: Lungs: Normal. No consolidation. Pleural space: Normal. No pneumothorax. Heart/Mediastinum: Normal. No cardiomegaly. Gastrointestinal tract: Normal. No bowel dilation. Intraperitoneal space: Normal. No free air. Bones/joints: Normal. No acute fracture. Soft tissues: Normal. IMPRESSION: No acute findings. Electronically signed by: Kody Hernandez On 12/08/2019 22:45:28 PM
--- NOTE | 2019-12-08 23:13 | IPNPDOC ---
Text Note Date of Service The patient was seen on 12/08/19. NOTE TIME OF SERVICE 1130PM is a 29 yr old smoker w a hx of alcoholic hepatitis /pancreatitis / cirrhosis w portal HTN, PAGE/blood loss anemia, ascites, and biliary dyskinesia who presented w c/o of nose bleed that has since resolved, n/v, abdominal pain that radiates to her back and constipation; she will be admitted for management of hypokalemia, and evaluation of abdominal pain. Rest per H&P VS,Troibio, I+O VS, Toribio, I+O Laboratory Tests 12/08/19 21:09 Vital Signs Date Time Temp Pulse Resp B/P (MAP) Pulse Ox O2 Delivery O2 Flow Rate FiO2 12/08/19 21:00 97.5 118 18 126/79 (95) 99 Room Air JOY MCKEON MD Dec 08, 2019 23:13
[2019-12-08] MEDS ORDERED: KCL 40MEQ in NS 1000ML 1,000 ML IV SCH (23:15)
[2019-12-08] MEDS ORDERED: LORazepam 2 MG/ML VIAL IV PRN ×2 (23:15→23:30)
[2019-12-08] MEDS ORDERED: ONDANSETRON 4MG/2ML VIAL IV PRN (23:15)
[2019-12-08 23:26] LABS: MAGNESIUM LEVEL 1.8 MG/DL (1.8-2.4)
[2019-12-09] MEDS ORDERED: SUCRALFATE 1 GM TAB PO PRN (00:15)
--- NOTE | 2019-12-09 00:20 | HPEPDOC ---
[facility] Medical History & Physical Date of Admission Dec 08, 2019 Date of Service: Dec 08, 2019 Attending Physician: JOY MCKEON MD History and Physical CC: abdominal pain, nause HPI: is a 29 yr old smoker w a hx of alcoholic hepatitis /pancreatitis / cirrhosis w portal HTN, PAGE/blood loss anemia, ascites, and biliary dyskinesia who presented w c/o of nose bleed that resolved after her arrival in the ER. She also c/o of n/v, abdominal pain that radiates to her back and constipation; she will be admitted for management of hypokalemia, and evaluation of abdominal pain. PAST MEDICAL HISTORY: Alcoholic liver cirrhosis Refractory anemia Hx of Alcoholic pancreatitis Hx of ascites Anxiety disorder Hx of induced Hx of UGIB Biliary Dyskinesia / Acalculous Cholecystitis PAST SURGICAL HISTORY: [place] teeth extraction SOCIAL HISTORY: 1 Pack per week smoker, denies EtOH use since 02/2019 (previously drank 1 liter/day for 6 years), denies illicit drug use. 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 FAMILY HISTORY: Mother from brain aneurysm REVIEW OF SYSTEMS: Constitutional: Denies weight loss, change in appetite, or recent trauma Eyes: No visual changes or eye pain Ears, Nose, Throat: Denies nose bleeds, or difficulty swallowing Cardiovascular: Denies chest pain, sweating, or orthopnea Respiratory: Denies cough, wheezing, or shortness of breath GI: Denies constipation, diarrhea, last BM on 11/11, admits to N/V, abdominal pain as above. : Denies pain with urination or frequency Musculoskeletal: Denies joint pain or swelling Neuro / Psych: Denies muscle weakness or sensory loss Skin: No skin rashes noted HOME MEDICATIONS: Please see below. PHYSICAL EXAMINATION: GENERAL APPEARANCE: Pleasant, well appearing female in NAD laying in bed. HEENT: NC, AT, EOMI, no scleral icterus, moist mucous membranes, CARDIOVASCULAR: RRR, +S1S2, - Murmurs / rubs / gallops LUNGS: : CTAb with full breath sounds, No wheezing / rales / rhonchi ABDOMEN: Soft, Non-distended, tender to palpation over epigastrium, diminished bowel sounds. EXTREMITIES: No lower extremity edema, No calf tenderness NEUROLOGICAL: No focal motor or sensory deficits. A/Ox3. PSYCHIATRIC: Normal mood and affect SKIN: No visible rashes or lesions IMAGING: ABDOMEN XR: FINDINGS: Lungs: Normal. No consolidation. Pleural space: Normal. No pneumothorax. Heart/Mediastinum: Normal. No cardiomegaly. Gastrointestinal tract: Normal. No bowel dilation. Intraperitoneal space: Normal. No free air. Bones/joints: Normal. No acute fracture. Soft tissues: Normal. IMPRESSION: No acute findings. CT ABD/PELVIS: TECHNIQUE: Imaging protocol: Computed tomography of the abdomen and pelvis without contrast. Axial, coronal and sagittal reformatted images were created and reviewed. Radiation optimization: All CT scans at this facility use at least one of these dose optimization techniques: automated exposure control; mA and/or kV adjustment per patient size (includes targeted exams where dose is matched to clinical indication); or iterative reconstruction. COMPARISON: CT ABD/PEL W/IV CONTRAST ONLY 11/13/2019 1:08 AM FINDINGS: Mediastinal space: Small hiatal hernia. Liver: Mild hepatomegaly. Diffuse hepatic steatosis. Gallbladder and bile ducts: No radiodense gallstones. No biliary ductal dilatation. Pancreas: Unremarkable. Spleen: Borderline splenomegaly. Adrenals: Unremarkable. Kidneys and ureters: Punctate nonobstructing bilateral renal calculi. No hydronephrosis. Stomach and bowel: No bowel wall thickening. No obstruction. No pneumatosis. Appendix: Normal. Intraperitoneal space: No free fluid. No organized fluid collection. No free air. Vasculature: Unremarkable. No aneurysm. Lymph nodes: No pathologically enlarged lymph nodes. Urinary bladder: Unremarkable as visualized. Reproductive: Unremarkable. Bones/joints: No acute osseous abnormality. Soft tissues: Unremarkable. IMPRESSION: 1. Limited noncontrast examination without CT evidence of acute intra-abdominal or pelvic pathology. 2. Additional findings, as above. Assessment and Plan: Hypokalemia: -Patient's potassium found to be 2.6 -s/p potassium PO 40mEQ in ED Transaminitis: likely 2/2 alcoholic cirrhosis -Hepatitis workup ordered DISPO: Patient left AMA prior to being transported to the floor just after admission order placed. She was urged to stay but refused. Vital Signs Vital Signs Date Time Temp Pulse Resp B/P (MAP) Pulse Ox O2 Delivery O2 Flow Rate FiO2 12/08/19 21:00 97.5 118 18 126/79 (95) 99 Room Air Laboratory Data Labs 24H Laboratory Tests 2 12/08/19 21:09: Immature Granulocyte % (Auto) 0.4, Neutrophils (%) (Auto) 63.8, Lymphocytes (%) (Auto) 24.1, Monocytes (%) (Auto) 8.2H, Eosinophils (%) (Auto) 2.6, Basophils (%) (Auto) 0.9, Neutrophils # (Auto) 2.9, Lymphocytes # (Auto) 1.1L, Monocytes # (Auto) 0.4, Eosinophils # (Auto) 0.1, Basophils # (Auto) 0.0, Nucleated Red Blood Cells % (auto) 0.0, Immature Platelet Fraction 2.8, Prothrombin Time 17.7H, Prothromb Time International Ratio 1.42, Activated Partial Thromboplast Time 36.7, Anion Gap 13, Glomerular Filtration Rate > 60.0, Calcium Level 9.1, Total Bilirubin 2.3H, Direct Bilirubin 1.5H, Aspartate Amino Transf (AST/SGOT) 388H, Alanine Aminotransferase (ALT/SGPT) 138H, Alkaline Phosphatase 287H, Total Protein 8.5H, Albumin 4.0, Albumin/Globulin Ratio 0.9L, Lipase 269, Ethyl Alcohol Level 0.306H CBC/BMP Laboratory Tests 12/08/19 21:09 Home Medications Scheduled Bupropion HCl (Bupropion HCl) 75 Mg Tablet, 75 MG PO BID HAS NOT STARTED YET Etonogestrel (Nexplanon) 68 Mg Implant, 68 MG IM ASDIRECTED IMPLANTED MAY 2018 Gabapentin (Gabapentin) 400 Mg Capsule, 400 MG PO TID Multivitamin/Folic Acid/Biotin (Hair, Skin and Nails Tablet) 1 Each Tablet, 2 TAB PO BID Pantoprazole Sodium (Pantoprazole Sodium) 40 Mg Tablet.dr, 40 MG PO DAILY Tizanidine HCl (Tizanidine HCl) 4 Mg Tablet, 4 MG PO TID Scheduled PRN Alprazolam (Alprazolam) 0.25 Mg Tablet, 0.25 MG PO TID PRN for ANXIETY Sucralfate (Carafate) 1 Gm Tablet, 1 GM PO ACHS PRN for UPSET STOMACH 4 times per day take on an empty stomach [Zzzquil Pure Z's] , 2 TAB PO QHS PRN for INSOMNIA Allergies Coded Allergies: Iodinated Contrast Media (Verified Allergy, Intermediate, HIVES, 11/07/19) A-FIB/CHADSVASC A-FIB History Current/History of A-Fib/PAF?: No GME ATTESTATION GME ATTESTATION My faculty preceptor for this patient encounter was physically present during the encounter and was fully available. All aspects of the patient interview, examination, medical decision making process, and medical care plan development were reviewed and approved by the faculty preceptor. The faculty preceptor is aware and concurs with the plan as stated in the body of this note and will attest to such by his/her cosignature. ATTENDING NOTE TIME OF SERVICE 1130PM is a 29 yr old smoker w a hx of alcoholic hepatitis /pancreatitis / cirrhosis w portal HTN, PAGE/blood loss anemia, ascites, and biliary dyskinesia who presented w c/o of nose bleed that has since resolved, n/v, abdominal pain that radiates to her back and constipation; she will be admitted for management of hypokalemia, and evaluation of abdominal pain. 1. Hypokalemia 2/2 vomiting Plan: f/u repeat K, Mag and replete lytes as needed 2. Acute Abdominal pain Differential for acute abdominal pain includes alcoholic hepatitis vs biliary dyskinesia vs chronic pancreatitis HIDA scan showing EF 20% from Dr. Pedro Branch in 03/2019 (under scanned report) She hasn't has a lap edouard New MELD Score 17 points Maddrey Score 17.9 = no need for steroids Plan: f/u lipase / day time team may consider GI and or Gen surg consult in AM 3. Alcohol Abuse He last drink was prior to arrival in the ER Plan: Ativan, Thiamine, MVI, folic acid per CIWA protocol 4. Chronic PAGE Plan: f/u heme/onc as scheduled for Venofer infusions 5. Tobacco Abuse Plan: smoking cessation education rest per 's H&P DELBERT GOMEZ MD Dec 08, 2019 23:22 JOY MCKEON MD Dec 09, 2019 00:20
--- NOTE | 2019-12-09 00:43 | REPVR ---
PROCEDURE INFORMATION: Exam: CT Abdomen And Pelvis Without Contrast Exam date and time: 12/09/2019 12:30 AM Age: 29 years old Clinical indication: Abdominal pain; Epigastric; Additional info: Epigastric pain, black stools TECHNIQUE: Imaging protocol: Computed tomography of the abdomen and pelvis without contrast. Axial, coronal and sagittal reformatted images were created and reviewed. Radiation optimization: All CT scans at this facility use at least one of these dose optimization techniques: automated exposure control; mA and/or kV adjustment per patient size (includes targeted exams where dose is matched to clinical indication); or iterative reconstruction. COMPARISON: CT ABD/PEL W/IV CONTRAST ONLY 11/13/2019 1:08 AM FINDINGS: Mediastinal space: Small hiatal hernia. Liver: Mild hepatomegaly. Diffuse hepatic steatosis. Gallbladder and bile ducts: No radiodense gallstones. No biliary ductal dilatation. Pancreas: Unremarkable. Spleen: Borderline splenomegaly. Adrenals: Unremarkable. Kidneys and ureters: Punctate nonobstructing bilateral renal calculi. No hydronephrosis. Stomach and bowel: No bowel wall thickening. No obstruction. No pneumatosis. Appendix: Normal. Intraperitoneal space: No free fluid. No organized fluid collection. No free air. Vasculature: Unremarkable. No aneurysm. Lymph nodes: No pathologically enlarged lymph nodes. Urinary bladder: Unremarkable as visualized. Reproductive: Unremarkable. Bones/joints: No acute osseous abnormality. Soft tissues: Unremarkable. IMPRESSION: 1. Limited noncontrast examination without CT evidence of acute intra-abdominal or pelvic pathology. 2. Additional findings, as above. Electronically signed by: Alec Godinez On 12/09/2019 00:43:22 AM
[2019-12-09 01:00] VITALS: BP 133/74
--- NOTE | 2019-12-09 05:55 | ECGEPIP ---
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
[2019-12-09] MEDS ORDERED: THIAMINE 100 MG TAB PO SCH (09:00)
[2019-12-09] MEDS ORDERED: MULTIVITAMINS/MINERALS THERAP 1 TAB PO SCH (09:00)
[2019-12-09] MEDS ORDERED: FOLIC ACID 1 MG TAB PO SCH (09:00)
[2019-12-09] MEDS ORDERED: DOCUSATE SODIUM 100 MG CAP PO SCH (09:00)
--- NOTE | 2019-12-11 08:36 | DS.PDOC ---
Discharge Summary General Date of Admission Dec 08, 2019 at 23:13 Date of Discharge Dec 08 2019 Attending Physician: JOY MCKEON MD Discharge Summary PROCEDURES PERFORMED DURING STAY: [None]. ADMITTING DIAGNOSES: 1. Hypokalemia 2. Abdominal pain likely 2/2 alcoholic hepatitis vs biliary dyskinesia 3. Alcohol Intoxication 4. Constipation 5. Microcytic Anemia 6. Thrombocytopenia DISCHARGE DIAGNOSES: 1. Hypokalemia 2. Abdominal pain likely 2/2 alcoholic hepatitis vs biliary dyskinesia 3. Alcohol Intoxication 4. Constipation 5. Microcytic Anemia 6. Thrombocytopenia COMPLICATIONS/CHIEF COMPLAINT: nose bleed HISTORY OF PRESENT ILLNESS: is a 29 yr old smoker w a hx of alcoholic hepatitis /pancreatitis / cirrhosis w portal HTN, PAGE/blood loss anemia, ascites, and biliary dyskinesia who presented w c/o of nose bleed that resolved after her arrival in the ER. She also c/o of n/v, abdominal pain that radiates to her back and constipation; she will be admitted for management of hypokalemia, and evaluation of abdominal pain. HOSPITAL COURSE: Prior to transport to the medical floor she elected to leave AMA. DISCHARGE MEDICATIONS: Please see below. ALLERGIES: Please see below. LABORATORY DATA: Please see below. IMAGING: see EMR PROGNOSIS: poor ACTIVITY: [As tolerated]. DIET: regular DISCHARGE PLAN: left AMA DISPOSITION: AMA DISCHARGE INSTRUCTIONS: 1. Follow up with PCP ITEMS TO FOLLOWUP ON ON OUTPATIENT: 1. Alcohol Abuse DISCHARGE CONDITION: [Stable]. TIME SPENT ON DISCHARGE: less than 5 min Vital Signs/I&Os Vital Signs Date Time Temp Pulse Resp B/P (MAP) Pulse Ox O2 Delivery O2 Flow Rate FiO2 12/09/19 01:00 98.0 100 18 133/74 (93) 97 12/08/19 21:00 Room Air Discharge Medications Scheduled Bupropion HCl (Bupropion HCl) 75 Mg Tablet, 75 MG PO BID, (Reported) HAS NOT STARTED YET Etonogestrel (Nexplanon) 68 Mg Implant, 68 MG IM ASDIRECTED, (Reported) IMPLANTED MAY 2018 Gabapentin (Gabapentin) 400 Mg Capsule, 400 MG PO TID, (Reported) Multivitamin/Folic Acid/Biotin (Hair, Skin and Nails Tablet) 1 Each Tablet, 2 TAB PO BID, (Reported) Pantoprazole Sodium (Pantoprazole Sodium) 40 Mg Tablet.dr, 40 MG PO DAILY, (Reported) Tizanidine HCl (Tizanidine HCl) 4 Mg Tablet, 4 MG PO TID, (Reported) Scheduled PRN Alprazolam (Alprazolam) 0.25 Mg Tablet, 0.25 MG PO TID PRN for ANXIETY, (Reported) Sucralfate (Carafate) 1 Gm Tablet, 1 GM PO ACHS PRN for UPSET STOMACH, (Reported) 4 times per day take on an empty stomach [Zzzquil Pure Z's] , 2 TAB PO QHS PRN for INSOMNIA, (Reported) Allergies Coded Allergies: Iodinated Contrast Media (Verified Allergy, Intermediate, HIVES, 11/07/19) JOY MCKEON MD Dec 11, 2019 08:36
== END 2019-12-09 01:35 | disposition home or self-care (01) ==
LOC: M ED 20:40 → M ED INP 23:13 → CANRESERV 12-09 00:20 → ENRESERV 12-09 00:20
PROVIDERS: ADMIT Internal Medicine; ATTEND Internal Medicine
DX: Z53.20 Procedure and treatment not carried out because of patient's decision for unspecified reasons (principal); E87.6 Hypokalemia; R10.9 Unspecified abdominal pain; F10.129 Alcohol abuse with intoxication, unspecified; K59.00 Constipation, unspecified; D50.8 Other iron deficiency anemias; D69.6 Thrombocytopenia, unspecified; F17.218 Nicotine dependence, cigarettes, with other nicotine-induced disorders; K70.31 Alcoholic cirrhosis of liver with ascites; K76.6 Portal hypertension; F41.9 Anxiety disorder, unspecified; Z79.899 Other long term (current) drug therapy; Z91.041 Radiographic dye allergy status
CPT/HCPCS: 36415; 74021; 74176; 80048; 80076; 82140; 83690; 83735; 85025; 85049; 85055; 85610; 85730; 93005; 96361; 96374; 96375; 99284; C9113; G0480; J2405

== ENCOUNTER 2020-02-18 19:59 | Emergency (ER) | payer OTHER ==
[~2020-02-18] VITALS: Ht 162.6 cm; Wt 63.0 kg
[2020-02-18] MEDS ORDERED: NS 1,000 ML IV ONE (20:15)
[2020-02-18] MEDS ORDERED: PANTOPRAZOLE 40MG VIAL (C9113 PER 1) IV ONE (20:15)
[2020-02-18] MEDS ORDERED: ONDANSETRON 4MG/2ML VIAL IV ONE (20:15)
--- NOTE | 2020-02-18 21:01 | REPVR ---
PROCEDURE INFORMATION: Exam: XR Chest, 1 View Exam date and time: 02/18/2020 8:12 PM Age: 29 years old Clinical indication: Other: Gi bleed; Additional info: Ugi bleed TECHNIQUE: Imaging protocol: XR of the chest Views: 1 view. COMPARISON: CR Abdomen,Flat Upright,PA CHEST 12/08/2019 10:05 PM FINDINGS: Lungs: Unremarkable. No consolidation. Pleural space: Unremarkable. No pleural effusion. No pneumothorax. Heart/Mediastinum: Unremarkable. No cardiomegaly. Bones/joints: Unremarkable. IMPRESSION: No acute findings. Electronically signed by: Davin Barnes On 02/18/2020 21:02:03 PM
[2020-02-18 21:20] LABS: BASO % 0.2 % (0.0-1.0); EOS # 0.1 10^3/uL (0.0-0.5); EOS % 0.5 % (0.0-3.0); LYMPH # 0.8 10^3/uL (1.5-5.0); LYMPH % 5.9 % (24.0-44.0); MEAN CORPUSCULAR HEMOGLOBIN 21.2 pg (27.0-33.0); MEAN CORPUSCULAR HGB CONC 26.6 g/dl (32.0-36.5); MEAN CORPUSCULAR VOLUME 79.6 fl (80.0-96.0); MONO # 1.1 10^3/uL (0.0-0.8); MONO % 8.5 % (0.0-5.0); NEUTROPHILS # 10.9 10^3/uL (1.5-8.5); NEUTROPHILS % 83.5 % (36.0-66.0); RED BLOOD COUNT 1.37 10^6/uL (4.00-5.40)
[2020-02-18 21:21] LABS: HEMATOCRIT 10.9 % (36.0-47.0); HEMOGLOBIN 2.9 g/dl (12.0-15.5); PLATELET COUNT, AUTOMATED 80 10^3/uL (150-450)
[2020-02-18 21:22] LABS: INR 1.19; PROTHROMBIN TIME 15.4 SECONDS (12.5-14.3)
[2020-02-18 21:23] LABS: PARTIAL THROMBOPLASTIN TIME 27.2 SECONDS (24.2-38.5)
[2020-02-18] MEDS ORDERED: OCTREOTIDE ACETATE 100MCG/ML VIAL (J2354 PER 25MCG) IV STA (21:26)
[2020-02-18] MEDS ORDERED: OCTREOTIDE ACETATE 1,200 MCG in NS 238.8 ML IV SCH (21:30)
[2020-02-18 21:44] LABS: ALBUMIN 2.7 GM/DL (3.2-5.2); ALT/SGPT 35 U/L (12-78); BILIRUBIN,DIRECT 1.7 MG/DL (0.0-0.2); BILIRUBIN,TOTAL 2.2 MG/DL (0.2-1.0); BLOOD UREA NITROGEN 14 MG/DL (7-18); CALCIUM LEVEL 8.1 MG/DL (8.5-10.1); CARBON DIOXIDE LEVEL 22 MEQ/L (21-32); CHLORIDE LEVEL 102 MEQ/L (98-107); CK-MB VALUE MASS < 1.0 NG/ML (<3.6); CPK CREATINE PHOSPHOKINASE 94 U/L (26-192); ETHYL ALCOHOL (ETHANOL) 0.128 % (0.000-0.010); GLOMERULAR FILTRATION RATE > 60.0 (>60); GLUCOSE, FASTING 104 MG/DL (70-100); LIPASE 221 U/L (73-393); MB/CK RELATIVE INDEX 1.06 (< OR =4); POTASSIUM SERUM 3.3 MEQ/L (3.5-5.1); SODIUM LEVEL 136 MEQ/L (136-145); TOTAL PROTEIN 6.4 GM/DL (6.4-8.2); TROPONIN I < 0.02 NG/ML (< 0.10)
[2020-02-18 21:47] LABS: ACETAMINOPHEN LEVEL < 2.0 UG/ML (10.0-30.0); SALICYLATE LEVEL < 1.7 MG/DL (5.0-30.0)
[2020-02-18] MEDS ORDERED: CALCIUM GLUCONATE 1,000 MG in D5W MINI-BAG PLUS 100 ML IV ONE (22:30)
[2020-02-18] MEDS ORDERED: MORPHINE 2 MG/ML 1ML VIAL (J2270) IV ONE (22:45)
[2020-02-18 23:20] VITALS: BP 127/67
--- NOTE | 2020-02-19 05:57 | ECGEPIP ---
[facility] - ED Test Date: 2020-02-18 Pat Name: AVIVA MAIER Department: Room: - Gender: Female Digital Sales Executive: AFSHIN : 1990 Requested By: Felix Moreno Order Number: [id number] Reading MD: Jair Jorgensen Measurements Intervals [place] Rate: 104 P: 38 HI: 164 QRS: 12 QRSD: 85 T: 44 QT: 348 QTc: 460 Interpretive Statements SINUS TACHYCARDIA POOR R WAVE PROGRESSION NSTTW ABNORMALITY(S) SIMILAR TO 12/08/19 Electronically Signed on 02-19-2020 5:57:31 EST by Jair Jorgensen
== END 2020-02-18 23:51 | disposition short-term general hospital (02) ==
LOC: M ED 19:59 → EDBD 19:59 → M ED 23:51
DX: K92.2 Gastrointestinal hemorrhage, unspecified (principal); K70.0 Alcoholic fatty liver; F10.11 Alcohol abuse, in remission; Z91.041 Radiographic dye allergy status; Z79.899 Other long term (current) drug therapy; Z79.3 Long term (current) use of hormonal contraceptives; F17.210 Nicotine dependence, cigarettes, uncomplicated
CPT/HCPCS: 36430; 71045; 80048; 80076; 82550; 82553; 83690; 84443; 84484; 85025; 85049; 85055; 85610; 85730; 86850; 86900; 86901; 86920; 86927; 93005; 93041; 96361; 96365; 96366; 96368; 96375; 99285; C9113; G0480; J0610; J2270; J2354; J2405; P9016; P9017

== ENCOUNTER → 2020-03-21 | Outpatient (CLI) | payer OTHER ==
[~2020-03-21] MED LIST changes: -MAG400TA PO; +MAGN400T35 PO
== END ==
LOC: M OUTALCOH 08:21
PROVIDERS: ATTEND Psychiatry & Neurology Addiction Medicine
DX: F10.20 Alcohol dependence, uncomplicated (principal); F17.200 Nicotine dependence, unspecified, uncomplicated

== ENCOUNTER 2020-04-30 09:00 | Outpatient (RCR) | payer OTHER | END 2020-05-04 | LOC: M OUTALCOH 09:00 | PROVIDERS: ATTEND Psychiatry & Neurology Psychiatry | DX: F10.20 Alcohol dependence, uncomplicated (principal); F17.200 Nicotine dependence, unspecified, uncomplicated | CPT/HCPCS: 90834; H0038 ==

== ENCOUNTER → 2020-06-04 | Outpatient (RCR) | payer OTHER | LOC: M OUTALCOH 05-06 15:09 | PROVIDERS: ATTEND Psychiatry & Neurology Psychiatry | DX: F10.20 Alcohol dependence, uncomplicated (principal); F17.200 Nicotine dependence, unspecified, uncomplicated | CPT/HCPCS: 90832; 90834; H0038 ==

== ENCOUNTER → 2020-07-04 | Outpatient (RCR) | payer OTHER | LOC: M OUTALCOH 06-11 16:00 | PROVIDERS: ATTEND Psychiatry & Neurology Psychiatry | DX: F10.20 Alcohol dependence, uncomplicated (principal); F17.200 Nicotine dependence, unspecified, uncomplicated | CPT/HCPCS: 90832; 90834; H0038 ==

== ENCOUNTER 2020-07-21 20:41 | Inpatient (IN) | payer OTHER ==
[~2020-07-21] VITALS: Ht 162.6 cm; Wt 66.8 kg
[~2020-07-21 20:41] MED LIST changes: +GABA-283 PO; -GABA-845 PO
[2020-07-21 22:34] LABS: HEMATOCRIT 31.5 % (36.0-47.0); HEMOGLOBIN 9.2 g/dl (12.0-15.5); MEAN CORPUSCULAR HEMOGLOBIN 19.2 pg (27.0-33.0); MEAN CORPUSCULAR HGB CONC 29.2 g/dl (32.0-36.5); MEAN CORPUSCULAR VOLUME 65.6 fl (80.0-96.0); PLATELET COUNT, AUTOMATED 326 10^3/uL (150-450); WHITE BLOOD COUNT 8.6 10^3/uL (4.0-10.0)
[2020-07-21 23:02] LABS: AMPHETAMINES LEVEL URINE NEGATIVE (NEGATIVE); BARBITURATES URINE NEGATIVE (NEGATIVE); BENZODIAZEPINES URINE NEGATIVE (NEGATIVE); CANNABINOIDS URINE NEGATIVE (NEGATIVE); COCAINE METABOLITE URINE NEGATIVE (NEGATIVE); METHADONE URINE NEGATIVE (NEGATIVE); OPIATES URINE NEGATIVE (NEGATIVE); PHENCYCLIDINE URINE NEGATIVE (NEGATIVE)
[2020-07-21 23:05] LABS: HCG, SERUM QUALITATIVE NEGATIVE (NEGATIVE)
[2020-07-21 23:19] LABS: ACETAMINOPHEN LEVEL < 2.0 UG/ML (10.0-30.0); ALBUMIN 4.3 GM/DL (3.2-5.2); ALT/SGPT 50 U/L (12-78); BILIRUBIN,DIRECT 0.4 MG/DL (0.0-0.2); BLOOD UREA NITROGEN 5 MG/DL (7-18); CALCIUM LEVEL 8.1 MG/DL (8.5-10.1); CARBON DIOXIDE LEVEL 23 MEQ/L (21-32); CHLORIDE LEVEL 107 MEQ/L (98-107); CREATININE FOR GFR 0.54 MG/DL (0.55-1.30); ETHYL ALCOHOL (ETHANOL) 0.337 % (0.000-0.010); GLOMERULAR FILTRATION RATE > 60.0 (>60); GLUCOSE, FASTING 86 MG/DL (70-100); POTASSIUM SERUM 3.5 MEQ/L (3.5-5.1); SALICYLATE LEVEL < 1.7 MG/DL (5.0-30.0); SODIUM LEVEL 145 MEQ/L (136-145)
[2020-07-21] MEDS ORDERED: LORazepam 2 MG TAB PO PRN (23:30)
[2020-07-21] MEDS ORDERED: THIAMINE 100 MG TAB PO SCH (23:31)
--- NOTE | 2020-07-22 01:07 | REPVR ---
PROCEDURE INFORMATION: Exam: XR Right Hand Exam date and time: 07/21/2020 11:45 PM Age: 30 years old Clinical indication: Hand; Right; Patient HX: 5th metacarpal area pain; Additional info: Right hand pain TECHNIQUE: Imaging protocol: XR Right hand. Views: 3 or more views. COMPARISON: No relevant prior studies available. FINDINGS: Bones/joints: Comminuted, mildly displaced fracture of the 5th metacarpal neck with slight volar angulation at the fracture site. No dislocation. Alignment anatomic. Joint spaces preserved. Soft tissues: Soft tissue swelling. IMPRESSION: Fifth metacarpal fracture, as described above. Electronically signed by: Alec Godinez On 07/22/2020 01:07:11 AM
[2020-07-22] MEDS ORDERED: MULTIVITAMINS/MINERALS THERAP 1 TAB PO SCH (09:00)
[2020-07-22] MEDS ORDERED: FOLIC ACID 1 MG TAB PO SCH (09:00)
[2020-07-22] MEDS ORDERED: BUSP5TA PO (10:34)
[2020-07-22] MEDS ORDERED: MOM 30ML SUSPENSION UDC PO PRN (12:15)
[2020-07-22] MEDS ORDERED: IBUPROFEN 400MG TAB PO PRN (12:15)
[2020-07-22] MEDS ORDERED: MAALOX 30 ML SUSP *UDC PO PRN (12:15)
[2020-07-22] MEDS ORDERED: traZODone 50 MG TAB PO PRN (12:15)
[2020-07-22] MEDS ORDERED: LORazepam 2 MG TAB PO PRN (12:15)
[2020-07-22] MEDS ORDERED: ACETAMINOPHEN TAB 650MG DOSE (2X325MG) PO ONE (13:00)
[2020-07-22 13:09] VITALS: BP 107/59
[2020-07-22 13:59] VITALS: BP 107/59
[2020-07-22] MEDS: THIAMINE 100 MG TAB PO SCH ×2 (15:45→20:39)
[2020-07-22] MEDS: MULTIVITAMINS/MINERALS THERAP 1 TAB PO SCH (15:45)
[2020-07-22] MEDS: FOLIC ACID 1 MG TAB PO SCH (15:45)
[2020-07-22] MEDS: NICOTINE 21MG/24HR 1 EA TRANSDERMAL TD SCH (15:46)
[2020-07-22 17:54] VITALS: BP 120/69
[2020-07-22 20:18] VITALS: BP 129/57
[2020-07-22 22:00] VITALS: BP 120/61
[2020-07-23 06:22] VITALS: BP 119/55
[2020-07-23] MEDS: NICOTINE 21MG/24HR 1 EA TRANSDERMAL TD SCH (10:03)
[2020-07-23] MEDS: THIAMINE 100 MG TAB PO SCH ×2 (10:04→20:42)
[2020-07-23] MEDS: MULTIVITAMINS/MINERALS THERAP 1 TAB PO SCH (10:04)
[2020-07-23] MEDS: FOLIC ACID 1 MG TAB PO SCH (10:04)
[2020-07-23] MEDS ORDERED: BISACODYL 5 MG TAB PO ONE (12:00)
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
[2020-07-23] MEDS: tiZANidine 4 MG TAB PO SCH ×2 (13:06→20:42)
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
[2020-07-23] MEDS: ALPRAZolam 0.25 MG TAB PO SCH ×2 (16:02→20:42)
[2020-07-23] MEDS: busPIRone 5 MG TAB PO SCH ×2 (16:02→20:42)
[2020-07-23 18:10] VITALS: BP 108/65
[2020-07-24] MEDS ORDERED: ALPRAZolam 0.25 MG TAB PO ONE (01:05)
[2020-07-24 06:46] VITALS: BP 96/50
[2020-07-24] MEDS ORDERED: NICO21PAT TD (08:19)
[2020-07-24] MEDS ORDERED: TIZA4TAB4 PO (08:19)
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
[2020-07-24] MEDS: ALPRAZolam 0.25 MG TAB PO SCH (10:04)
[2020-07-24] MEDS: FOLIC ACID 1 MG TAB PO SCH (10:04)
[2020-07-24] MEDS: busPIRone 5 MG TAB PO SCH (10:04)
[2020-07-24] MEDS: THIAMINE 100 MG TAB PO SCH (10:04)
[2020-07-24] MEDS: NICOTINE 21MG/24HR 1 EA TRANSDERMAL TD SCH (10:05)
[2020-07-24] MEDS: MULTIVITAMINS/MINERALS THERAP 1 TAB PO SCH (10:06)
[2020-07-24] MEDS: tiZANidine 4 MG TAB PO SCH (10:07)
== END 2020-07-24 11:02 | disposition home or self-care (01) | DRG 881 ==
LOC: M ED 20:41 → M PSY 07-22 12:14 → M ED 07-22 13:09
PROVIDERS: ADMIT Psychiatry & Neurology Psychiatry; ATTEND Psychiatry & Neurology Psychiatry
DX: F32.9 Major depressive disorder, single episode, unspecified (principal); R45.851 Suicidal ideations; F17.210 Nicotine dependence, cigarettes, uncomplicated; F41.9 Anxiety disorder, unspecified; F10.120 Alcohol abuse with intoxication, uncomplicated; Z63.0 Problems in relationship with spouse or partner; Z63.5 Disruption of family by separation and divorce; Z60.9 Problem related to social environment, unspecified; Z91.5 Personal history of self-harm; Z91.14 Patient's other noncompliance with medication regimen; Z79.899 Other long term (current) drug therapy; Z91.041 Radiographic dye allergy status; S62.336A Displaced fracture of neck of fifth metacarpal bone, right hand, initial encounter for closed fracture; W22.8XXA Striking against or struck by other objects, initial encounter; Y92.019 Unspecified place in single-family (private) house as the place of occurrence of the external cause; K31.89 Other diseases of stomach and duodenum; Z20.822 Contact with and (suspected) exposure to COVID-19

== ENCOUNTER 2020-08-01 13:25 | Outpatient (RCR) | payer OTHER ==
[~2020-08-01 13:25] MED LIST changes: +BUSP5TA PO; +NICO21PAT TD
== END 2020-08-04 ==
LOC: M OUTALCOH 13:25
PROVIDERS: ATTEND Psychiatry & Neurology Psychiatry
DX: F10.20 Alcohol dependence, uncomplicated (principal); F17.200 Nicotine dependence, unspecified, uncomplicated
CPT/HCPCS: 90832; 90834; H0038

== ENCOUNTER → 2020-09-03 | Outpatient (RCR) | payer OTHER ==
[~2020-09-03] MED LIST changes: +OMEP40CA4 PO; -OMEP40CA97 PO
== END ==
LOC: M OUTALCOH 08-08 13:16
PROVIDERS: ATTEND Psychiatry & Neurology Psychiatry
DX: F10.20 Alcohol dependence, uncomplicated (principal); F17.200 Nicotine dependence, unspecified, uncomplicated
CPT/HCPCS: 90834; H0038

== ENCOUNTER 2020-09-10 18:34 | Emergency (ER) | payer OTHER ==
[~2020-09-10] VITALS: Ht 162.6 cm; Wt 62.7 kg
[2020-09-10 20:08] LABS: BASO # 0.1 10^3/uL (0.0-0.2); EOS # 0.3 10^3/uL (0.0-0.5); HEMATOCRIT 30.8 % (36.0-47.0); HEMOGLOBIN 9.1 g/dl (12.0-15.5); LYMPH # 2.1 10^3/uL (1.5-5.0); LYMPH % 42.8 % (24.0-44.0); MEAN CORPUSCULAR HEMOGLOBIN 20.1 pg (27.0-33.0); MEAN CORPUSCULAR HGB CONC 29.5 g/dl (32.0-36.5); MEAN CORPUSCULAR VOLUME 68.1 fl (80.0-96.0); MONO # 0.5 10^3/uL (0.0-0.8); MONO % 10.8 % (2.0-8.0); NEUTROPHILS % 39.2 % (36.0-66.0); PLATELET COUNT, AUTOMATED 201 10^3/uL (150-450); RED BLOOD COUNT 4.52 10^6/uL (4.00-5.40)
[2020-09-10 20:17] LABS: INR 1.37; PROTHROMBIN TIME 17.2 SECONDS (12.5-14.3)
[2020-09-10 20:18] LABS: PARTIAL THROMBOPLASTIN TIME 37.2 SECONDS (24.2-38.5)
[2020-09-10] MEDS ORDERED: PANTOPRAZOLE 40MG VIAL (C9113 PER 1) IV ONE (20:20)
[2020-09-10] MEDS ORDERED: KETOROLAC 30 MG/ML 1ML VIAL IV ONE (20:20)
[2020-09-10] MEDS ORDERED: ONDANSETRON 4MG/2ML VIAL IV ONE (20:20)
[2020-09-10] MEDS ORDERED: NS 1,000 ML IV ONE ×2 (20:35→21:05)
[2020-09-10 20:37] LABS: HCG, SERUM QUALITATIVE NEGATIVE (NEGATIVE)
[2020-09-10 20:41] LABS: ALT/SGPT 111 U/L (12-78); BILIRUBIN,DIRECT 0.4 MG/DL (0.0-0.2); BILIRUBIN,TOTAL 0.8 MG/DL (0.2-1.0); BLOOD UREA NITROGEN 6 MG/DL (7-18); CALCIUM LEVEL 8.7 MG/DL (8.5-10.1); CARBON DIOXIDE LEVEL 26 MEQ/L (21-32); CHLORIDE LEVEL 104 MEQ/L (98-107); CREATININE FOR GFR 0.57 MG/DL (0.55-1.30); GLOMERULAR FILTRATION RATE > 60.0 (>60); GLUCOSE, FASTING 87 MG/DL (70-100); LIPASE 357 U/L (73-393); POTASSIUM SERUM 3.5 MEQ/L (3.5-5.1); SODIUM LEVEL 143 MEQ/L (136-145)
[2020-09-10 21:19] VITALS: BP 89/52
[2020-09-10] MEDS ORDERED: OXAZEPAM 15 MG CAP PO ONE (21:20)
== END 2020-09-10 21:26 | disposition left against medical advice (07) ==
LOC: EDBD 18:34 → M ED 18:34
DX: F10.129 Alcohol abuse with intoxication, unspecified (principal); Y90.1 Blood alcohol level of 20-39 mg/100 ml; Z79.3 Long term (current) use of hormonal contraceptives; Z91.041 Radiographic dye allergy status
CPT/HCPCS: 80048; 80076; 82077; 83605; 83690; 84703; 85025; 85610; 85730; 86850; 86900; 86901; 93041; 96361; 96374; 96375; 99285; C9113; J1885; J2405

== ENCOUNTER 2020-09-20 19:24 | Inpatient (IN) | payer OTHER ==
[~2020-09-20] VITALS: Ht 152.4 cm; Wt 65.0 kg
[2020-09-20 20:54] LABS: BASO % 0.5 % (0.0-1.0); EOS # 0.1 10^3/uL (0.0-0.5); EOS % 4.1 % (0.0-3.0); HEMATOCRIT 28.2 % (36.0-47.0); HEMOGLOBIN 8.3 g/dl (12.0-15.5); LYMPH # 0.5 10^3/uL (1.5-5.0); LYMPH % 24.6 % (24.0-44.0); MEAN CORPUSCULAR HEMOGLOBIN 20.3 pg (27.0-33.0); MEAN CORPUSCULAR HGB CONC 29.4 g/dl (32.0-36.5); MEAN CORPUSCULAR VOLUME 68.9 fl (80.0-96.0); MONO # 0.2 10^3/uL (0.0-0.8); MONO % 10.3 % (2.0-8.0); NEUTROPHILS # 1.2 10^3/uL (1.5-8.5); RED BLOOD COUNT 4.09 10^6/uL (4.00-5.40)
[2020-09-20 21:14] LABS: PLATELET COUNT, AUTOMATED 41 10^3/uL (150-450)
[2020-09-20 21:16] LABS: HCG, SERUM QUALITATIVE NEGATIVE (NEGATIVE)
[2020-09-20 21:18] LABS: ALBUMIN 3.9 GM/DL (3.2-5.2); ALT/SGPT 133 U/L (12-78); BILIRUBIN,DIRECT 1.2 MG/DL (0.0-0.2); BILIRUBIN,TOTAL 1.9 MG/DL (0.2-1.0); BLOOD UREA NITROGEN 4 MG/DL (7-18); CALCIUM LEVEL 8.6 MG/DL (8.5-10.1); CARBON DIOXIDE LEVEL 28 MEQ/L (21-32); CHLORIDE LEVEL 95 MEQ/L (98-107); CREATININE FOR GFR 0.67 MG/DL (0.55-1.30); GLOMERULAR FILTRATION RATE > 60.0 (>60); GLUCOSE, FASTING 131 MG/DL (70-100); LIPASE 1171 U/L (73-393); POTASSIUM SERUM 3.2 MEQ/L (3.5-5.1); SODIUM LEVEL 132 MEQ/L (136-145); TOTAL PROTEIN 7.3 GM/DL (6.4-8.2)
[2020-09-20] MEDS ORDERED: NS 1,000 ML IV ONE (22:20)
[2020-09-20] MEDS ORDERED: MORPHINE 4 MG/ML 1ML VIAL/SYRINGE (J2270) IV ONE (23:40)
[2020-09-20] MEDS ORDERED: METOCLOPRAMIDE INJ 10MG/2ML VIAL (J2765 PER 1) IV ONE (23:40)
[2020-09-20] MEDS ORDERED: TIZA4TAB4 PO (23:58)
[2020-09-20] MEDS ORDERED: SUCR1TA PO (23:58)
--- NOTE | 2020-09-21 01:01 | REPVR ---
PROCEDURE INFORMATION: Exam: CT Abdomen And Pelvis Without Contrast Exam date and time: 09/20/2020 11:59 PM Age: 30 years old Clinical indication: Abdominal pain; Localized; Upper; Additional info: Epigastric pain, recent pancreatitis TECHNIQUE: Imaging protocol: Computed tomography of the abdomen and pelvis without contrast. Radiation optimization: All CT scans at this facility use at least one of these dose optimization techniques: automated exposure control; mA and/or kV adjustment per patient size (includes targeted exams where dose is matched to clinical indication); or iterative reconstruction. COMPARISON: CT ABD PELVIS W/O CONTRAST 12/09/2019 12:23 AM FINDINGS: Diaphragm: Elevation of the right hemidiaphragm. Liver: Heterogeneous hypodense fatty infiltration of the liver. Hepatomegaly. The liver measures 20.2 cm in craniocaudad dimension. Gallbladder and bile ducts: No calcified stones. Pancreas: Peripancreatic stranding visualized, concerning for acute pancreatitis. Calcifications are visualized within the pancreatic head and uncinate process. This can be associated with chronic pancreatitis. Spleen: Splenomegaly. The spleen measures 14.1 cm in length and has mildly increased in size. Adrenal glands: No mass. Kidneys and ureters: There is a small nonobstructing calculus within each kidney. No hydronephrosis bilaterally. Stomach and bowel: Wall thickening of a small bowel loop centrally within the abdomen, suggestive of enteritis. Gas is identified peripherally within the cecum, likely contributed by gas between the wall of the cecum and stool, although a component of pneumatosis is also considered. There is wall thickening of the ascending colon, suggestive of colitis. Pericolonic stranding is identified, most significant involving the ascending colon. Evaluation of bowel is limited by the absence of oral contrast. Appendix: Fluid surrounds the appendix, without significant appendiceal distention. Intraperitoneal space: Free fluid is seen within the pelvis. Additional stranding is identified within the abdomen and pelvis, which is likely infectious or inflammatory. Vasculature: No abdominal aortic aneurysm. Lymph nodes: Small retroperitoneal and mesenteric lymph nodes are visualized. Urinary bladder: Mild nonspecific wall thickening of the bladder anteriorly. Reproductive: Unremarkable as visualized. Bones/joints: A small mineralized density is identified anterior to the superior L5 endplate, which is a chronic finding compared to the prior study. Soft tissues: An umbilical piercing is visualized. IMPRESSION: 1. Peripancreatic stranding visualized, concerning for acute pancreatitis. Calcifications are visualized within the pancreatic head and uncinate process, suggestive of a chronic component of pancreatitis. 2. Wall thickening of a small bowel loop centrally within the abdomen, suggestive of enteritis. 3. Gas is identified peripherally within the cecum, likely contributed by gas between the wall of the cecum and stool, although a component of pneumatosis is also considered. There is wall thickening of the ascending colon, suggestive of colitis. Pericolonic stranding is identified, most significant involving the ascending colon. 4. Free fluid is seen within the pelvis. Additional stranding is identified within the abdomen and pelvis, which is likely infectious or inflammatory. 5. Heterogeneous hypodense fatty infiltration of the liver. Hepatomegaly. 6. Splenomegaly. 7. There is a small nonobstructing calculus within each kidney. No hydronephrosis bilaterally. 8. Additional findings described above. Electronically signed by: Franck Frankel On 09/21/2020 01:00:34 AM
[2020-09-21 01:11] LABS: INR 1.38; PARTIAL THROMBOPLASTIN TIME 31.1 SECONDS (24.2-38.5); PROTHROMBIN TIME 17.3 SECONDS (12.5-14.3)
[2020-09-21 01:17] LABS: RSV AMPLIFICATION NEGATIVE (NEGATIVE)
--- NOTE | 2020-09-21 01:31 | HPEPDOC ---
[facility] Medical History & Physical Date of Admission Sep 21, 2020 Date of Service: Sep 21, 2020 Primary Care Physician: Heidi Parra DO Attending Physician: JOY MCKEON MD History and Physical TIME OF SERVICE: 1:55AM CHIEF COMPLAINT: Abdominal pain HISTORY OF PRESENT ILLNESS: After having an argument with her on September 07, , a 30 yr old F, relapsed and drank alcohol. She was admitted to [facility] for acute pancreatitis, UTI and hematemesis; on Tuesday she left AMA. At home she ate 2 cups of jello; she denied drinking more alcohol but her abdominal pain got worse and she vomited so she came here to [facility]. The abdominal pain is diffuse and rates to the back. A CT of the abdomen and pelvis confirmed acute on chronic pancreatitis, enteritis, colitis and possible pneumatosis; JERMAINE Best discussed the findings with who recommended consulting GI. ROS: 10 point ROS negative except as listed in HPI PAST MEDICAL/SURGICAL HISTORY: Alcoholic liver cirrhosis complicated by portal HTN ( UGIB, esophageal varices, portal hypertensive gastropathy, splenomegaly, grade D esophagitis, Hx of UGIB, Hx Ascites needing paracentesis x1), Iron Def anemia, Hx of Alcoholic pancreatitis, Anxiety/ Depression/ Bipolar disorder, Hx of Biliary Dyskinesia / Acalculous Cholecystitis, Extraction of wisdom teeth SOCIAL HISTORY: She smokes, struggles with alcohol abuse (relapsed on September 07, denies having seizures if she doesn't drink) & lives with her FAMILY HISTORY: Mother from brain aneurysm ALLERGIES: Please see below. HOME MEDICATIONS: Please see below. PHYSICAL EXAMINATION: Vital Signs Date Time Temp Pulse Resp B/P (MAP) Pulse Ox O2 Delivery O2 Flow Rate FiO2 09/20/20 19:25 99.5 113 19 154/89 (110) 98 Room Air GENERAL APPEARANCE: well nourished and developed/ anxious teary and crying INTEGUMENT: + jaundice /no lao-lucas's sign HEENT: + scleral icterus / MM pink but dry CARDIOVASCULAR: tachycardic / NMRG LUNGS: not coughing/ lungs are CTAB on RA ABDOMEN: contour flat/ tender w palpation of the epigastrium MUSCULOSKELETAL: NCAT / CATHRYN x/ 4 extremities NEUROLOGICAL: CN 2-12 grossly intact /speech not dysarthric PSYCHIATRIC: A&Ox 3 /able to understand and follow all commands LABORATORY DATA: IMAGING: CT abd/pelvis " IMPRESSION: 1. Peripancreatic stranding visualized, concerning for acute pancreatitis. Calcifications are visualized within the pancreatic head and uncinate process, suggestive of a chronic component of pancreatitis. 2. Wall thickening of a small bowel loop centrally within the abdomen, suggestive of enteritis. 3. Gas is identified peripherally within the cecum, likely contributed by gas between the wall of the cecum and stool, although a component of pneumatosis is also considered. There is wall thickening of the ascending colon, suggestive of colitis. Pericolonic stranding is identified, most significant involving the ascending colon. 4. Free fluid is seen within the pelvis. Additional stranding is identified within the abdomen and pelvis, which is likely infectious or inflammatory. 5. Heterogeneous hypodense fatty infiltration of the liver. Hepatomegaly. 6. Splenomegaly. 7. There is a small nonobstructing calculus within each kidney. No hydronephrosis bilaterally. 8. Additional findings described above." MICROBIOLOGY: Respiratory panel is neg. ASSESSMENT: is a 30 yr old F w a hx of alcohol abuse with alcoholic liver cirrhosis complicated by portal HTN ( UGIB, esophageal varices, portal hypertensive gastropathy, ascites, splenomegaly, grade D esophagitis), Iron Def anemia, Hx of Alcoholic pancreatitis, Anxiety/ Depression/ Bipolar disorder & Hx of Biliary Dyskinesia who is admitted for SIRS vs Sepsis, acute on chronic pancreatitis, pancytopenia, possible enteritis and colitis. PLAN: 1. SIRS vs Sepsis Possibly reactive or 2/2 GI source SIRS criteria include a HR of 113 w WBC # of 2 Plan: because her qSOFA, which is 0, puts her in the category that is not high risk we will admit her to the medical floor / telemetry / start Zosyn and vancomycin pending blood cx, lactic acid and MRSA results / IVF / Acetaminophen PRN for fever / target MAP at of least 65 to 70 / f/u Is and Os with target UOP of at least 0.5 ml/kg/H / f/u FSBS w target serum glucose 140-180 while acutely ill 2 Acute on chronic pancreatitis She meets the Modified Lincoln Criteria to confirm the diagnosis The trigger is likely alcohol Monson-Imrie Pancreatitis Score to determine severity score = 0 points = low risk for severe pancreatitis Ransons Criteria to predict mortality in pts w Pancreatitis at admission = 1 points = 1% predicted mortality Plan: NPO for now / LR @ 200ml/H / f/u serum ETO / morphine PRN for pain / unable to give Toradol bc of her low Plt # 3 Enteritis/ Colitis with possible pneumatosis Plan: f/u GI panel / abx / f/u w 4 Pancytopenia Likely due hepatosplenomegaly and alcohol abuse Plan: f/u CBC, Hepatitis panel & iron panel 4 Mild asymptomatic hyponatremia Likely due to beer potomania Plan: f/u Uosmo, serum osmol and Ronaldo to confirm type 5 Hypokalemia Plan: KCl in IVF / f/u repea BMP and Mag 6 Alcoholic liver cirrhosis with portal HTN ( UGIB, esophageal varices, portal hypertensive gastropathy, splenomegaly, grade D esophagitis, Hx of UGIB, Hx Ascites) Currently she doesnt appear to have decompensated liver cirrhosis. Her MELD score is 12 points & Her Child-Bejarano Score is 6 points / Class A which is similar to her scores in Nov. The abdominal pain is in the epigastrium and likely due to pancreatitis; if she also happens to have component of alcoholic hepatitis her Maddreys Score is only 24 so she doesnt need steroids. Plan: c/w Carafate / to prevent the catabolic effects of chronic liver disease the patient should have a high protein diet with a daily protein intake of 1.5 g/kg body weight / trend LFTs & INR PTT aPTT / she can f/u with her PCP for surveillance & prevention with liver US +/- -fetoprotein Q6 months, osteoporosis screening, to give Hep A,B vaccines if not already immune & give administer influenza vaccine, Prevnar and Pneumovax / she will also need to f/u with GI for EGD Q1-3 yrs to monitor her esophageal varices 7 Alcohol Abuse Plan: thiamine, MVI, folic acid & Ativan per CIWA protocol / f/u add on serum ETHO 8 Tobacco Abuse Plan: smoking cessation education 9 Anxiety/ Depression/ Bipolar disorder Plan: alprazolam, buspirone DVT px w TEDs & SCDs bc of thrombocytopenia Dispo: home after at least 2 midnights stay Home Medications Scheduled Buspirone HCl (Buspirone HCl) 5 Mg Tablet, 5 MG PO TID Etonogestrel (Nexplanon) 68 Mg Implant, 68 MG IM ASDIRECTED IMPLANTED MAY 2018 Sucralfate (Sucralfate) 1 Gm Tablet, 1 GM PO TID BEFORE MEALS Scheduled PRN Alprazolam (Alprazolam) 0.25 Mg Tablet, 0.25 MG PO TID PRN for ANXIETY Tizanidine HCl (Tizanidine HCl) 4 Mg Tablet, 4 MG PO BID PRN for MUSCLE SPASMS Allergies Coded Allergies: Iodinated Contrast Media (Verified Allergy, Intermediate, HIVES, 11/07/19) A-FIB/CHADSVASC A-FIB History Current/History of A-Fib/PAF?: Yes Current PO Anticoag Therapy: Yes JOY MCKEON MD Sep 21, 2020 01:31
[2020-09-21] MEDS ORDERED: tiZANidine 4 MG TAB PO PRN (01:50)
[2020-09-21] MEDS ORDERED: ONDANSETRON 4MG/2ML VIAL IV PRN (01:50)
[2020-09-21] MEDS ORDERED: ALPRAZolam 0.25 MG TAB PO PRN (01:50)
[2020-09-21] MEDS: busPIRone 5 MG TAB PO SCH ×4 (02:23→22:16)
[2020-09-21] MEDS: POTASSIUM CHLORIDE INJ 40 MEQ in LR 1,000 ML IV SCH ×3 (02:36→17:00)
[2020-09-21 02:56] LABS: AMPHETAMINES LEVEL URINE NEGATIVE (NEGATIVE); BARBITURATES URINE NEGATIVE (NEGATIVE); BENZODIAZEPINES URINE NEGATIVE (NEGATIVE); CANNABINOIDS URINE NEGATIVE (NEGATIVE); COCAINE METABOLITE URINE NEGATIVE (NEGATIVE); METHADONE URINE NEGATIVE (NEGATIVE); OPIATES URINE POSITIVE (NEGATIVE); PHENCYCLIDINE URINE NEGATIVE (NEGATIVE)
[2020-09-21] MEDS: MORPHINE 2 MG/ML 1ML VIAL (J2270) IV PRN ×6 (04:01→22:17)
[2020-09-21] MEDS ORDERED: NS 1,000 ML IV SCH (05:30)
[2020-09-21] MEDS ORDERED: VANCOMYCIN HCL 1,000 MG, VIAL MATE ADAPTER 1 EACH in NS 250 ML IV SCH (06:00)
[2020-09-21 06:02] LABS: LDH LACTATE DEHYDROGENASE 251 U/L (84-246)
[2020-09-21 06:03] LABS: ETHYL ALCOHOL (ETHANOL) < 0.003 % (0.000-0.010)
[2020-09-21] MEDS ORDERED: LORazepam 2 MG TAB PO PRN (06:10)
[2020-09-21] MEDS: PIPERACILLIN/TAZOBACTAM SOD 4.5 GM in D5W MINI-BAG PLUS 50 ML IV SCH ×3 (06:26→17:01)
[2020-09-21] MEDS: THIAMINE 100 MG TAB PO SCH ×2 (06:49→19:53)
[2020-09-21 07:04] LABS: HEMOGLOBIN 7.7 g/dl (12.0-15.5); MEAN CORPUSCULAR HEMOGLOBIN 20.6 pg (27.0-33.0); MEAN CORPUSCULAR HGB CONC 29.6 g/dl (32.0-36.5); MEAN CORPUSCULAR VOLUME 69.7 fl (80.0-96.0); RED BLOOD COUNT 3.73 10^6/uL (4.00-5.40)
[2020-09-21 07:06] LABS: PLATELET COUNT, AUTOMATED 49 10^3/uL (150-450)
[2020-09-21] MEDS: SUCRALFATE 1 GM TAB PO SCH ×3 (07:20→17:00)
[2020-09-21] MEDS ORDERED: VANCOMYCIN HCL 500 MG in D5W MINI-BAG PLUS 100 ML IV ONE (07:30)
[2020-09-21 07:32] LABS: ALBUMIN 3.4 GM/DL (3.2-5.2); ALT/SGPT 118 U/L (12-78); BILIRUBIN,TOTAL 1.6 MG/DL (0.2-1.0); BLOOD UREA NITROGEN 2 MG/DL (7-18); CALCIUM LEVEL 8.4 MG/DL (8.5-10.1); CARBON DIOXIDE LEVEL 28 MEQ/L (21-32); CHLORIDE LEVEL 100 MEQ/L (98-107); CREATININE FOR GFR 0.42 MG/DL (0.55-1.30); FERRITIN 20 NG/ML (8-252); GLOMERULAR FILTRATION RATE > 60.0 (>60); GLUCOSE, FASTING 84 MG/DL (70-100); IRON (FE) 18 UG/DL (50-170); MAGNESIUM LEVEL 1.6 MG/DL (1.8-2.4); PERCENT SATURATION 4.7 % (13.2-45.0); POTASSIUM SERUM 3.8 MEQ/L (3.5-5.1); SODIUM LEVEL 136 MEQ/L (136-145); TOTAL IRON BINDING CAPACITY 383 UG/DL (250-450); TOTAL PROTEIN 6.5 GM/DL (6.4-8.2)
[2020-09-21 07:42] LABS: OSMOLALITY SERUM 276 MOSM/KG (275-295)
[2020-09-21] MEDS ORDERED: ENOXAPARIN 40MG/0.4ML SYRINGE (J1650 PER 10MG) SC SCH (09:00)
[2020-09-21] MEDS ORDERED: VANCOMYCIN HCL 750 MG, VIAL MATE ADAPTER 1 EACH in NS 250 ML IV ONE (09:00)
[2020-09-21] MEDS ORDERED: MAG SULF 1GM/100ML (MAG RUN) 1 GM in IV 1 EA IV ONE (09:00)
[2020-09-21 10:00] VITALS: BP 106/72
[2020-09-21] MEDS: MULTIVITAMINS/MINERALS THERAP 1 TAB PO SCH (10:30)
[2020-09-21] MEDS: FOLIC ACID 1 MG TAB PO SCH (10:30)
[2020-09-21 14:00] VITALS: BP_SYST 128; BP_SYST 97; BP_DIAS 60; BP_DIAS 79
[2020-09-21 16:06] VITALS: BP 128/79
[2020-09-21 19:49] VITALS: BP 125/81
[2020-09-21] MEDS: PANTOPRAZOLE 40MG VIAL (C9113 PER 1) IV SCH (19:53)
[2020-09-21] MEDS: OXAZEPAM 15 MG CAP PO ONE (19:59)
[2020-09-21 20:00] VITALS: BP 125/81
[2020-09-21] MEDS ORDERED: MULTIVITAMIN -ADULT INJECTION 10 ML, THIAMINE INJection 100 MG, FOLIC ACID 1 MG in NS 1... IV ONE (21:00)
[2020-09-22] MEDS: OXAZEPAM 15 MG CAP PO ONE (00:22)
[2020-09-22] MEDS: PIPERACILLIN/TAZOBACTAM SOD 4.5 GM in D5W MINI-BAG PLUS 50 ML IV SCH ×4 (00:23→17:27)
[2020-09-22] MEDS: MORPHINE 2 MG/ML 1ML VIAL (J2270) IV PRN ×4 (00:24→20:20)
[2020-09-22 02:06] LABS: INR 1.41; PROTHROMBIN TIME 17.6 SECONDS (12.5-14.3)
[2020-09-22 04:21] VITALS: BP 92/62
[2020-09-22 04:25] VITALS: BP 92/62
[2020-09-22 06:18] LABS: HEMATOCRIT 25.3 % (36.0-47.0); HEMOGLOBIN 7.2 g/dl (12.0-15.5); MEAN CORPUSCULAR HEMOGLOBIN 20.6 pg (27.0-33.0); MEAN CORPUSCULAR HGB CONC 28.5 g/dl (32.0-36.5); MEAN CORPUSCULAR VOLUME 72.3 fl (80.0-96.0)
[2020-09-22 06:22] LABS: PLATELET COUNT, AUTOMATED 56 10^3/uL (150-450)
[2020-09-22 06:48] LABS: ALBUMIN 3.2 GM/DL (3.2-5.2); ALT/SGPT 111 U/L (12-78); BILIRUBIN,TOTAL 1.4 MG/DL (0.2-1.0); BLOOD UREA NITROGEN 1 MG/DL (7-18); CALCIUM LEVEL 8.4 MG/DL (8.5-10.1); CARBON DIOXIDE LEVEL 29 MEQ/L (21-32); CHLORIDE LEVEL 105 MEQ/L (98-107); CREATININE FOR GFR 0.53 MG/DL (0.55-1.30); GLOMERULAR FILTRATION RATE > 60.0 (>60); GLUCOSE, FASTING 104 MG/DL (70-100); PHOSPHORUS LEVEL 2.1 MG/DL (2.5-4.9); POTASSIUM SERUM 3.7 MEQ/L (3.5-5.1); SODIUM LEVEL 137 MEQ/L (136-145)
[2020-09-22 07:26] LABS: MAGNESIUM LEVEL 1.8 MG/DL (1.8-2.4)
[2020-09-22] MEDS: SUCRALFATE 1 GM TAB PO SCH ×4 (07:30→17:27)
[2020-09-22] MEDS: PANTOPRAZOLE 40MG VIAL (C9113 PER 1) IV SCH ×2 (08:51→20:19)
[2020-09-22] MEDS: FOLIC ACID 1 MG TAB PO SCH (08:52)
[2020-09-22] MEDS: busPIRone 5 MG TAB PO SCH ×3 (08:52→20:20)
[2020-09-22] MEDS: OXAZEPAM 10 MG CAP PO SCH ×2 (08:52→20:20)
[2020-09-22] MEDS: THIAMINE 100 MG TAB PO SCH ×2 (08:52→20:20)
[2020-09-22] MEDS: MULTIVITAMINS/MINERALS THERAP 1 TAB PO SCH (08:52)
[2020-09-22 08:57] VITALS: BP 102/62
[2020-09-22] MEDS ORDERED: OXAZEPAM 10 MG CAP PO SCH (09:00)
[2020-09-22 09:57] LABS: VITAMIN B12 LEVEL 576 PG/ML (247-911)
[2020-09-22 09:58] LABS: FOLATE 13.3 NG/ML (>5.4)
[2020-09-22 10:08] LABS: HEPATITIS B SURFACE ANTIGEN NEGATIVE (NEGATIVE)
--- NOTE | 2020-09-22 10:30 | IPNPDOC ---
Subjective Date Seen The patient was seen on 09/22/20. Subjective Chief Complaint/HPI Complains of mild epigastric tenderness. Says that she is hungry. As per nurses she was hallucinating last night, shaking, screaming and was going through withdrawals. Patient tells me that last night she woke up from a night mare and that really frightened her so she was shaking and screaming. Objective Physical Examination General Exam: Positive: Alert, Cooperative, No Acute Distress Eye Exam: Positive: PERRLA, Conjunctiva & lids normal, EOMI; Negative: Sclera icteric ENT Exam: Positive: Atraumatic, Mucous membr. moist/pink, Pharynx Normal Neck Exam: Positive: Supple; Negative: JVD, thyromegaly Chest Exam: Positive: Clear to auscultation, Normal air movement Heart Exam: Positive: Rate Normal, Regular Rhythm, Normal S1, Normal S2; Negative: Murmurs, Rubs Abdomen Exam: Positive: Normal bowel sounds, Soft, Tenderness (in the epigastric region) Extremity Exam: Negative: Clubbing, Cyanosis, Edema Assessment /Plan Assessment is a 30 yr old F w a hx of alcohol abuse with alcoholic liver cirrhosis complicated by portal HTN ( UGIB, esophageal varices, portal hypertensive gastropathy, ascites, splenomegaly, grade D esophagitis), Iron Def anemia, Hx of Alcoholic pancreatitis, Anxiety/ Depression/ Bipolar disorder & Hx of Biliary Dyskinesia who is admitted for SIRS vs Sepsis, acute on chronic pancreatitis, pancytopenia, likely alcoholic hepatitis, possible enteritis and colitis. SIRS vs Sepsis If sepsis source is GI will continue with zosyn Acute on chronic alcoholic pancreatitis pain control with morphine, clear liquids adn advance as tolerated. IVF. PPI Alcohol abuse and pancytopenia likely from bone marrow suppression watch for withdrawal, CIWA protocol, banana bag, thiamine, folate. scheduled serax. Elevated transaminases likely due to pancreatitis and alcohol hepatitis. Enteritis/ Colitis with possible pneumatosis as seen in CT abd. continue zosyn. Hypokalemia replaced. Hypomagnesemia replaced. Alcoholic liver cirrhosis with portal HTN ( UGIB, esophageal varices, portal hypertensive gastropathy, splenomegaly, Hx of UGIB, Hx Ascites) Currently she doesnt appear to have decompensated liver cirrhosis. thiamine, folate Esophagitis/ gastritis alcoholic will give PPI. sucralfate. Anxiety/ Depression/ Bipolar disorder buspirone Plan/VTE VTE Prophylaxis Ordered?: Yes VS, I&O, 24H, Fishbone Vital Signs/I&O Vital Signs Date Time Temp Pulse Resp B/P (MAP) Pulse Ox O2 Delivery O2 Flow Rate FiO2 09/22/20 09:03 17 09/22/20 08:57 75 102/62 (75) 09/22/20 04:21 98.5 100 Room Air I&O- Last 24 Hours up to 6 AM 09/22/20 06:00 Intake Total 2621 ml Output Total 1750 ml Balance 871 ml Laboratory Data 24H LABS Laboratory Tests 2 09/21/20 12:59: Methicillin-Resist S.aureus DNA PCR NOT DETECTED 09/22/20 01:44: Prothrombin Time 17.6H, Prothromb Time International Ratio 1.41 09/22/20 05:36: Nucleated Red Blood Cells % (auto) 0.0, Immature Platelet Fraction 4.7, Anion Gap 3L, Glomerular Filtration Rate > 60.0, Calcium Level 8.4L, Phosphorus Level 2.1L, Magnesium Level 1.8, Total Bilirubin 1.4H, Aspartate Amino Transf (AST/SGOT) 178H, Alanine Aminotransferase (ALT/SGPT) 111H, Alkaline Phosphatase 194H, Total Protein 6.0L, Albumin 3.2, Albumin/Globulin Ratio 1.1L CBC/BMP Laboratory Tests 09/22/20 05:36 Microbiology Microbiology 09/21/20 Blood Culture - Preliminary, Resulted No growth after 24 hours . All specim... 09/21/20 Blood Culture - Preliminary, Resulted No growth after 24 hours . All specim... FANTA MAHER MD Sep 22, 2020 10:30
[2020-09-22 10:35] LABS: HEPATITIS B CORE ANTIBODY IGM NEGATIVE (NEGATIVE)
[2020-09-22 10:38] LABS: HEPATITIS A ANTIBODY IGM NEGATIVE (NEGATIVE)
[2020-09-22 14:00] VITALS: BP 98/57
[2020-09-22 21:00] VITALS: BP 109/70
[2020-09-22 22:00] VITALS: BP 109/70
[2020-09-23] VITALS (17 sets, daily range): BP systolic 95–115; BP diastolic 52–74
[2020-09-23] MEDS: PIPERACILLIN/TAZOBACTAM SOD 4.5 GM in D5W MINI-BAG PLUS 50 ML IV SCH ×4 (00:58→20:06)
[2020-09-23] MEDS: MORPHINE 2 MG/ML 1ML VIAL (J2270) IV PRN ×5 (00:59→20:07)
[2020-09-23] MEDS: busPIRone 5 MG TAB PO SCH ×3 (09:00→20:06)
[2020-09-23] MEDS: OXAZEPAM 10 MG CAP PO SCH (09:00)
[2020-09-23] MEDS: SUCRALFATE 1 GM TAB PO SCH ×3 (09:34→17:23)
[2020-09-23] MEDS: FOLIC ACID 1 MG TAB PO SCH (09:34)
[2020-09-23] MEDS: PANTOPRAZOLE 40MG VIAL (C9113 PER 1) IV SCH ×2 (09:35→20:07)
[2020-09-23] MEDS: MULTIVITAMINS/MINERALS THERAP 1 TAB PO SCH (09:35)
[2020-09-23] MEDS: THIAMINE 100 MG TAB PO SCH ×2 (09:35→20:07)
--- NOTE | 2020-09-23 14:14 | IPNPDOC ---
Text Note Date of Service The patient was seen on 09/23/20. NOTE Chief Complaint/HPI -Ms. Clay was teary and upset this morning on my evaluation reporting poor treatment by staff that is judgemental with paranoia over how they may be talking about her. I assured her that we are all working together to get her well and get her home to continue her participation in the outpatient program to continue alcohol use disorder and dependence treatment and understand that this is a chronic illness and not a reflection of her character. -She agreed to stay, and will have 2u of blood -She is otherwise tolerating a regular diet now since breakfast Objective Vitals: see below General: Alert, Cooperative, No Acute Distress Eyes: PERRLA, Conjunctiva & lids normal, EOMI, anicteric ENT: Atraumatic, Mucous membr. moist/pink, Pharynx Normal Neck: Supple; no JVD Chest: Clear to auscultation, Normal air movement Heart: Rate Normal, Regular Rhythm, Normal S1, Normal S2, no m/r/g Abdomen: Normal bowel sounds, Soft, tender epigastrium, no rebound or guarding Extremities: No edema, WWP Labs: Reviewed Assessment: 30 yr old W w a hx of alcohol abuse with alcoholic liver cirrhosis complicated by portal HTN ( UGIB, esophageal varices, portal hypertensive gastropathy, ascites, splenomegaly, grade D esophagitis), Iron Def anemia, Hx of Alcoholic pa ncreatitis, Anxiety/ Depression/ Bipolar disorder & Hx of Biliary Dyskinesia who is admitted acute on chronic pancreatitis, pancytopenia, alcoholic hepatitis, possible enteritis and colitis. SIRS vs Sepsis If sepsis source is GI -continue with zosyn, plan is to dc tomorrow at discharge after 3d of abx Acute on chronic alcoholic pancreatitis -pain control with morphine, now tolerating regulat diet -s/p IVF. -c/w PPI Alcohol abuse and pancytopenia 2/2 bone marrow suppression -CIWA protocol, banana bag, thiamine, folate. -DC scheduled serax, will only do symptom triggered PRN ativan -will give 2u pRBCs Elevated transaminases -likely due to pancreatitis and alcohol hepatitis. Enteritis/ Colitis with possible pneumatosis -as seen in CT abd. -continue zosyn. Hypokalemia -replaced. Hypomagnesemia -replaced. Alcoholic liver cirrhosis with portal HTN ( UGIB, esophageal varices, portal hypertensive gastropathy, splenomegaly, Hx of UGIB, Hx Ascites) C-urrently she doesnt appear to have decompensated liver cirrhosis. -thiamine, folate Esophagitis/ gastritis -c/w PPI and sucralfate Anxiety/ Depression/ Bipolar disorder -buspirone VS,Fishbone, I+O VS, Fishbone, I+O Vital Signs Date Time Temp Pulse Resp B/P (MAP) Pulse Ox O2 Delivery O2 Flow Rate FiO2 09/23/20 13:43 98.3 70 18 110/72 98 Room Air I&O- Last 24 Hours up to 6 AM 09/23/20 06:00 Intake Total 760 ml Output Total 400 ml Balance 360 ml EULALIO DIETRICH MD Sep 23, 2020 14:14
[2020-09-24] MEDS: PIPERACILLIN/TAZOBACTAM SOD 4.5 GM in D5W MINI-BAG PLUS 50 ML IV SCH ×2 (00:09→06:10)
[2020-09-24] MEDS: MORPHINE 2 MG/ML 1ML VIAL (J2270) IV PRN ×2 (01:02→06:11)
[2020-09-24 06:13] VITALS: BP 95/50
--- NOTE | 2020-09-24 07:50 | DS.PDOC ---
Discharge Summary General Date of Admission Sep 21, 2020 at 01:28 Date of Discharge 09/24/2020 Attending Physician: EULALIO DIETRICH MD Discharge Summary PROCEDURES PERFORMED DURING STAY: None ADMITTING DIAGNOSES: Acute on chronic pancreatitis Enterocolitis DISCHARGE DIAGNOSES: Acute on chronic pancreatitis Alcohol use disorder with dependence c/b withdrawal this admission Dehydration Enterocolitis History of alcoholic liver cirrhosis complicated by portal HTN ( UGIB, esophageal varices, portal hypertensive gastropathy, splenomegaly, grade D esophagitis, Hx of UGIB, Hx Ascites needing paracentesis x1) Acute on chronic iron Def anemia Anxiety/ Depression/ Bipolar disorder COMPLICATIONS/CHIEF COMPLAINT: Acute On Chronic Pancreatitis. HISTORY OF PRESENT ILLNESS: 30 yo W with a history of alcoholic liver cirrhosis complicated by portal HTN ( UGIB, esophageal varices, portal hypertensive gastropathy, splenomegaly, grade D esophagitis, Hx of UGIB, Hx Ascites needing paracentesis x1), Iron Def anemia, Hx of Alcoholic pancreatitis, Anxiety/ Depression/ Bipolar disorder, Hx of Biliary Dyskinesia / Acalculous Cholecystitis whom after having an argument with her on September 07, , relapsed and drank alcohol. She was admitted to [facility] for acute pancreatitis, UTI and hematemesis but on 09/20 left AMA. At home she ate 2 cups of jello, she denied drinking more alcohol, and her abdominal pain got worse and she vomited and she came to [facility]. On presentation she reported diffuse abdominal pain that radiated to the back. HOSPITAL COURSE: In the ED she was found to have an elevated lipase to ~[address] of the abdomen and pelvis confirmed acute on chronic pancreatitis, enteritis, colitis and possible pneumatosis, JERMAINE Best discussed the findings with who recommended consulting GI with no indications for surgical interventions. She was started on empiric zosyn for which she received 3d, was placed on aggressive fluids and bowel rest until symptoms improved and she could now tolerate a diet that was slowly re-introduced. Her course was c/b acute jorden alcohol withdrawal that was treated with benzodiazepine therapy until resolution. She also had acute on chronic anemia for which she received 2u of pRBCs with no evidence of jorden acute blood loss. She is now being discharged home with 4 more days of ciprofloxacin for the enterocolitis with plan for close PCP follow up, GI follow up and return to the [facility] substance use outpatient program. DISCHARGE MEDICATIONS: Please see below. ALLERGIES: Please see below. PHYSICAL EXAMINATION ON DISCHARGE: VITAL SIGNS: Please see below. General: Alert, Cooperative, No Acute Distress Eyes: PERRLA, Conjunctiva & lids normal, EOMI, anicteric ENT: Atraumatic, Mucous membr. moist/pink, Pharynx Normal Neck: Supple; no JVD Chest: Clear to auscultation, Normal air movement Heart: Rate Normal, Regular Rhythm, Normal S1, Normal S2, no m/r/g Abdomen: Normal bowel sounds, Soft, mildly tender epigastrium on deep palpation, no rebound or guarding Extremities: No edema, WWP LABORATORY DATA: Please see below. IMAGING: CT A/P: FINDINGS: Diaphragm: Elevation of the right hemidiaphragm. Liver: Heterogeneous hypodense fatty infiltration of the liver. Hepatomegaly. The liver measures 20.2 cm in craniocaudad dimension. Gallbladder and bile ducts: No calcified stones. Pancreas: Peripancreatic stranding visualized, concerning for acute pancreatitis. Calcifications are visualized within the pancreatic head and uncinate process. This can be associated with chronic pancreatitis. Spleen: Splenomegaly. The spleen measures 14.1 cm in length and has mildly increased in size. Adrenal glands: No mass. Kidneys and ureters: There is a small nonobstructing calculus within each kidney. No hydronephrosis bilaterally. Stomach and bowel: Wall thickening of a small bowel loop centrally within the abdomen, suggestive of enteritis. Gas is identified peripherally within the cecum, likely contributed by gas between the wall of the cecum and stool, although a component of pneumatosis is also considered. There is wall thickening of the ascending colon, suggestive of colitis. Pericolonic stranding is identified, most significant involving the ascending colon. Evaluation of bowel is limited by the absence of oral contrast. Appendix: Fluid surrounds the appendix, without significant appendiceal distention. Intraperitoneal space: Free fluid is seen within the pelvis. Additional stranding is identified within the abdomen and pelvis, which is likely infectious or inflammatory. Vasculature: No abdominal aortic aneurysm. Lymph nodes: Small retroperitoneal and mesenteric lymph nodes are visualized. Urinary bladder: Mild nonspecific wall thickening of the bladder anteriorly. Reproductive: Unremarkable as visualized. Bones/joints: A small mineralized density is identified anterior to the superior L5 endplate, which is a chronic finding compared to the prior study. Soft tissues: An umbilical piercing is visualized. IMPRESSION: 1. Peripancreatic stranding visualized, concerning for acute pancreatitis. Calcifications are visualized within the pancreatic head and uncinate process, suggestive of a chronic component of pancreatitis. 2. Wall thickening of a small bowel loop centrally within the abdomen, suggestive of enteritis. 3. Gas is identified peripherally within the cecum, likely contributed by gas between the wall of the cecum and stool, although a component of pneumatosis is also considered. There is wall thickening of the ascending colon, suggestive of colitis. Pericolonic stranding is identified, most significant involving the ascending colon. 4. Free fluid is seen within the pelvis. Additional stranding is identified within the abdomen and pelvis, which is likely infectious or inflammatory. 5. Heterogeneous hypodense fatty infiltration of the liver. Hepatomegaly. 6. Splenomegaly. 7. There is a small nonobstructing calculus within each kidney. No hydronephrosis bilaterally. 8. Additional findings described above. PROGNOSIS: Good with abstinence from alcohol consumption ACTIVITY: As tolerated DIET: Regular DISCHARGE PLAN: Home with cipro, PCP and GI follow up DISPOSITION: Home DISCHARGE INSTRUCTIONS: Please abstain from alcohol and complete your ciprofloxacin course as prescribed and follow up with your PCP and GI doctor as scheduled. ITEMS TO FOLLOWUP ON ON OUTPATIENT: Acute on chronic pancreatitis Consideration of alcohol cessation therapies DISCHARGE CONDITION: Stable TIME SPENT ON DISCHARGE: 46 minutes. Vital Signs/I&Os Vital Signs Date Time Temp Pulse Resp B/P (MAP) Pulse Ox O2 Delivery O2 Flow Rate FiO2 09/24/20 06:34 18 09/24/20 06:13 98.1 66 95/50 (65) 95 Room Air I&O- Last 24 Hours up to 6 AM 09/24/20 06:00 Intake Total 3050 ml Output Total 0 ml Balance 3050 ml Microbiology Microbiology 09/21/20 Blood Culture - Preliminary, Resulted No Growth after 72 hours. All specime... 09/21/20 Blood Culture - Preliminary, Resulted No Growth after 72 hours. All specime... Discharge Medications Scheduled Buspirone HCl (Buspirone HCl) 5 Mg Tablet, 5 MG PO TID, (Reported) Etonogestrel (Nexplanon) 68 Mg Implant, 68 MG IM ASDIRECTED, (Reported) IMPLANTED MAY 2018 Sucralfate (Sucralfate) 1 Gm Tablet, 1 GM PO TID, (Reported) BEFORE MEALS Scheduled PRN Alprazolam (Alprazolam) 0.25 Mg Tablet, 0.25 MG PO TID PRN for ANXIETY, (Reported) Tizanidine HCl (Tizanidine HCl) 4 Mg Tablet, 4 MG PO BID PRN for MUSCLE SPASMS, (Reported) Allergies Coded Allergies: Iodinated Contrast Media (Verified Allergy, Intermediate, HIVES, 11/07/19) EULALIO DIETRICH MD Sep 24, 2020 07:49
[2020-09-24] MEDS ORDERED: PANT40TA29 PO (07:52)
[2020-09-24] MEDS ORDERED: CIPR-249 PO (07:52)
[2020-09-24 08:00] LABS: HEMATOCRIT 32.9 % (36.0-47.0); HEMOGLOBIN 10.1 g/dl (12.0-15.5); MEAN CORPUSCULAR HEMOGLOBIN 22.4 pg (27.0-33.0); MEAN CORPUSCULAR HGB CONC 30.7 g/dl (32.0-36.5); MEAN CORPUSCULAR VOLUME 72.9 fl (80.0-96.0); PLATELET COUNT, AUTOMATED 71 10^3/uL (150-450); RED BLOOD COUNT 4.51 10^6/uL (4.00-5.40); WHITE BLOOD COUNT 2.8 10^3/uL (4.0-10.0)
[2020-09-24] MEDS: SUCRALFATE 1 GM TAB PO SCH (08:19)
[2020-09-24] MEDS: MULTIVITAMINS/MINERALS THERAP 1 TAB PO SCH (08:19)
[2020-09-24] MEDS: FOLIC ACID 1 MG TAB PO SCH (08:19)
[2020-09-24] MEDS: busPIRone 5 MG TAB PO SCH (08:20)
[2020-09-24] MEDS: PANTOPRAZOLE 40MG VIAL (C9113 PER 1) IV SCH (08:20)
[2020-09-24 08:33] LABS: BLOOD UREA NITROGEN 3 MG/DL (7-18); CALCIUM LEVEL 8.7 MG/DL (8.5-10.1); CARBON DIOXIDE LEVEL 28 MEQ/L (21-32); CHLORIDE LEVEL 106 MEQ/L (98-107); CREATININE FOR GFR 0.66 MG/DL (0.55-1.30); GLOMERULAR FILTRATION RATE > 60.0 (>60); GLUCOSE, FASTING 130 MG/DL (70-100); POTASSIUM SERUM 3.6 MEQ/L (3.5-5.1); SODIUM LEVEL 139 MEQ/L (136-145)
== END 2020-09-24 11:00 | disposition home or self-care (01) | DRG 432 ==
LOC: M ED 19:24 → M ED INP 09-21 01:28 → ENRESERV 09-21 08:23 → M MS5PR 09-21 10:05
PROVIDERS: ADMIT Internal Medicine; ATTEND Internal Medicine
DX: K70.30 Alcoholic cirrhosis of liver without ascites (principal); K85.20 Alcohol induced acute pancreatitis without necrosis or infection; K86.0 Alcohol-induced chronic pancreatitis; K76.6 Portal hypertension; F10.131 Alcohol abuse with withdrawal delirium; E87.1 Hypo-osmolality and hyponatremia; E86.0 Dehydration; K52.9 Noninfective gastroenteritis and colitis, unspecified; E87.6 Hypokalemia; F17.210 Nicotine dependence, cigarettes, uncomplicated; F41.9 Anxiety disorder, unspecified; F31.9 Bipolar disorder, unspecified; Z79.899 Other long term (current) drug therapy; Z91.041 Radiographic dye allergy status; D50.9 Iron deficiency anemia, unspecified; E83.42 Hypomagnesemia; Z20.822 Contact with and (suspected) exposure to COVID-19

== ENCOUNTER 2020-10-02 11:00 | Outpatient (RCR) | payer OTHER | END 2020-10-04 | LOC: M OUTALCOH 11:00 | PROVIDERS: ATTEND Psychiatry & Neurology Psychiatry | DX: F10.20 Alcohol dependence, uncomplicated (principal); F17.200 Nicotine dependence, unspecified, uncomplicated ==

== ENCOUNTER 2020-10-27 16:00 | Outpatient (RCR) | payer OTHER | END 2020-11-04 | LOC: M OUTALCOH 16:00 | PROVIDERS: ATTEND Psychiatry & Neurology Psychiatry | DX: F10.20 Alcohol dependence, uncomplicated (principal); F17.200 Nicotine dependence, unspecified, uncomplicated ==

== ENCOUNTER 2021-03-04 17:11 | Emergency (ER) | payer OTHER ==
[~2021-03-04] VITALS: Ht 162.6 cm; Wt 65.1 kg
[2021-03-04 17:11] VITALS: BP 138/75
[~2021-03-04 17:11] MED LIST changes: -KLOR10TA76 PO; -MAGN400T3 PO; +MAGN400T33 PO; +POTA-136 PO
[2021-03-05] MEDS ORDERED: ONDA4TAB6 PO (06:15)
[2021-03-05] MEDS ORDERED: ROXI1TAB2 PO (06:15)
== END 2021-03-04 18:14 | disposition left against medical advice (07) ==
LOC: M ED 17:11
DX: Z53.21 Procedure and treatment not carried out due to patient leaving prior to being seen by health care provider (principal)

== ENCOUNTER 2021-03-04 22:29 | Emergency (ER) | payer OTHER ==
[~2021-03-04] VITALS: Ht 162.6 cm; Wt 63.6 kg
[~2021-03-04 22:29] MED LIST changes: -CEFD1CAP8 PO; +CEFD300C41 PO; +OMEP-173 PO; -OMEP-218 PO; +TIZA10TA PO; -TIZA4TAB4 PO
[2021-03-05] MEDS ORDERED: ONDANSETRON 4MG/2ML VIAL IV ONE (02:55)
[2021-03-05] MEDS: MORPHINE 4 MG/ML 1ML VIAL/SYRINGE (J2270) IV PRN ×2 (03:03→05:36)
[2021-03-05 03:05] LABS: BASO # 0.1 10^3/uL (0.0-0.2); BASO % 0.8 % (0.0-1.0); EOS # 0.2 10^3/uL (0.0-0.5); EOS % 2.3 % (0.0-3.0); HEMOGLOBIN 9.1 g/dl (12.0-15.5); LYMPH # 2.7 10^3/uL (1.5-5.0); LYMPH % 29.3 % (24.0-44.0); MEAN CORPUSCULAR HEMOGLOBIN 23.3 pg (27.0-33.0); MEAN CORPUSCULAR HGB CONC 30.3 g/dl (32.0-36.5); MEAN CORPUSCULAR VOLUME 76.9 fl (80.0-96.0); MONO % 10.5 % (2.0-8.0); NEUTROPHILS # 5.2 10^3/uL (1.5-8.5); NEUTROPHILS % 56.9 % (36.0-66.0); PLATELET COUNT, AUTOMATED 201 10^3/uL (150-450); WHITE BLOOD COUNT 9.2 10^3/uL (4.0-10.0)
[2021-03-05 03:19] LABS: INR 1.4; PROTHROMBIN TIME 17.6 SECONDS (12.7-14.5)
[2021-03-05 03:20] LABS: PARTIAL THROMBOPLASTIN TIME 39.2 SECONDS (25.9-37.0)
[2021-03-05 03:41] LABS: ALBUMIN 3.9 GM/DL (3.2-5.2); ALT/SGPT 60 U/L (12-78); AMYLASE 88 U/L (25-115); BILIRUBIN,DIRECT 0.6 MG/DL (0.0-0.2); BILIRUBIN,TOTAL 1.4 MG/DL (0.2-1.0); BLOOD UREA NITROGEN 9 MG/DL (7-18); CALCIUM LEVEL 9.4 MG/DL (8.5-10.1); CARBON DIOXIDE LEVEL 27 MEQ/L (21-32); CHLORIDE LEVEL 99 MEQ/L (98-107); CREATININE FOR GFR 0.51 MG/DL (0.55-1.30); ETHYL ALCOHOL (ETHANOL) 0.046 % (0.000-0.010); GLOMERULAR FILTRATION RATE > 60.0 (>60); GLUCOSE, FASTING 97 MG/DL (70-100); LIPASE 196 U/L (73-393); POTASSIUM SERUM 3.5 MEQ/L (3.5-5.1); SODIUM LEVEL 138 MEQ/L (136-145); TOTAL PROTEIN 8.1 GM/DL (6.4-8.2)
[2021-03-05 03:44] LABS: HCG, SERUM QUALITATIVE NEGATIVE (NEGATIVE)
[2021-03-05] MEDS ORDERED: LORazepam 2 MG/ML VIAL IV STA (03:48)
[2021-03-05] MEDS ORDERED: LORazepam 2 MG/ML VIAL As Ordered ONE (04:22)
[2021-03-05] MEDS ORDERED: NS 1,000 ML IV ONE (05:00)
[2021-03-05 06:00] VITALS: BP 117/60
[2021-03-05] MEDS ORDERED: ONDA4TAB6 PO (06:15)
[2021-03-05] MEDS ORDERED: ROXI1TAB2 PO (06:15)
== END 2021-03-05 06:30 | disposition home or self-care (01) ==
LOC: M ED 22:29
DX: R10.9 Unspecified abdominal pain (principal); R11.10 Vomiting, unspecified; F10.10 Alcohol abuse, uncomplicated; K74.60 Unspecified cirrhosis of liver; Z91.041 Radiographic dye allergy status; Z79.899 Other long term (current) drug therapy; Z79.3 Long term (current) use of hormonal contraceptives; F17.210 Nicotine dependence, cigarettes, uncomplicated
CPT/HCPCS: 74176; 80048; 80076; 81001; 82077; 82140; 82150; 83690; 84703; 85025; 85610; 85730; 96374; 96375; 96376; 99281; 99284; J2060; J2270; J2405

== ENCOUNTER 2021-04-11 11:46 | Emergency (ER) | payer OTHER ==
[~2021-04-11] VITALS: Ht 162.6 cm; Wt 72.0 kg
[~2021-04-11 11:46] MED LIST changes: +ROXI1TAB2 PO
[2021-04-11 12:00] VITALS: BP 110/70
== END 2021-04-11 13:08 | disposition home or self-care (01) ==
LOC: M ED 11:46 → EDBD 11:46 → M ED 13:08
DX: S60.512A Abrasion of left hand, initial encounter (principal); S80.01XA Contusion of right knee, initial encounter; S80.02XA Contusion of left knee, initial encounter; S80.11XA Contusion of right lower leg, initial encounter; S80.12XA Contusion of left lower leg, initial encounter; V49.49XA Driver injured in collision with other motor vehicles in traffic accident, initial encounter; Y92.410 Unspecified street and highway as the place of occurrence of the external cause; F31.9 Bipolar disorder, unspecified; F10.10 Alcohol abuse, uncomplicated; Z79.899 Other long term (current) drug therapy; Z79.3 Long term (current) use of hormonal contraceptives

== ENCOUNTER 2021-05-04 07:27 | Inpatient (IN) | payer OTHER ==
[2021-05-04] VITALS (8 sets, daily range): BP systolic 107–138; BP diastolic 55–72
[~2021-05-04] VITALS: Ht 162.6 cm; Wt 65.3 kg
[2021-05-04] MEDS: OXAZEPAM 10MG CAP PO SCH ×3 (06:00→22:13)
[2021-05-04] MEDS ORDERED: ACETAMINOPHEN TAB 650MG DOSE (2X325MG) PO PRN (08:05)
[2021-05-04] MEDS ORDERED: LORazepam 2 MG TAB PO PRN (08:05)
[2021-05-04] MEDS ORDERED: ONDANSETRON 4MG/2ML VIAL IV PRN (08:05)
[2021-05-04 08:52] LABS: HEMATOCRIT 28.1 % (36.0-47.0); HEMOGLOBIN 8.3 g/dl (12.0-15.5); MEAN CORPUSCULAR HEMOGLOBIN 22.4 pg (27.0-33.0); MEAN CORPUSCULAR HGB CONC 29.5 g/dl (32.0-36.5); MEAN CORPUSCULAR VOLUME 75.7 fl (80.0-96.0); PLATELET COUNT, AUTOMATED 170 10^3/uL (150-450); RED BLOOD COUNT 3.71 10^6/uL (4.00-5.40); WHITE BLOOD COUNT 10.7 10^3/uL (4.0-10.0)
[2021-05-04] MEDS ORDERED: HOME MED LIST COMPLETE! XX SCH (08:55)
[2021-05-04] MEDS ORDERED: ENOXAPARIN 40MG/0.4ML SYRINGE (J1650 PER 10MG) SC SCH (09:00)
[2021-05-04 09:30] LABS: ALBUMIN 3.2 GM/DL (3.2-5.2); ALT/SGPT 40 U/L (12-78); AMYLASE 80 U/L (25-115); BILIRUBIN,TOTAL 0.9 MG/DL (0.2-1.0); BLOOD UREA NITROGEN 7 MG/DL (7-18); CALCIUM LEVEL 8.2 MG/DL (8.5-10.1); CARBON DIOXIDE LEVEL 29 MEQ/L (21-32); CHLORIDE LEVEL 107 MEQ/L (98-107); CREATININE FOR GFR 0.66 MG/DL (0.55-1.30); GLOMERULAR FILTRATION RATE > 60.0 (>60); GLUCOSE, FASTING 86 MG/DL (70-100); LIPASE 208 U/L (73-393); POTASSIUM SERUM 3.5 MEQ/L (3.5-5.1); SODIUM LEVEL 141 MEQ/L (136-145); TOTAL PROTEIN 7.6 GM/DL (6.4-8.2)
[2021-05-04 09:31] LABS: INR 1.44
[2021-05-04] MEDS: cefTRIAXone SOD 1 GM in D5W MINI-BAG PLUS 50 ML IV SCH (09:33)
[2021-05-04] MEDS: NS 1,000 ML IV SCH ×3 (09:33→23:05)
[2021-05-04 09:42] LABS: GLUCOSE, URINE (UA) MANUAL NEGATIVE (NEGATIVE)
[2021-05-04 09:43] LABS: BILIRUBIN, URINE MANUAL NEGATIVE (NEGATIVE); KETONE, URINE MANUAL NEGATIVE (NEGATIVE); UROBILINOGEN, URINE MANUAL NORMAL (NORMAL)
[2021-05-04] MEDS: PANTOPRAZOLE 40MG VIAL (C9113 PER 1) IV SCH ×2 (09:49→20:53)
[2021-05-04] MEDS: MORPHINE 4 MG/ML 1ML VIAL/SYRINGE (J2270) IV PRN ×3 (09:50→20:53)
[2021-05-04] MEDS: metroNIDAZOLE 500 MG in IV 1 EA IV SCH ×2 (09:51→17:00)
[2021-05-04] MEDS: SUCRALFATE SUSP 1GM/10ML UD PO SCH ×2 (12:12→17:00)
[2021-05-04 14:20] LABS: HEMATOCRIT 26.4 % (36.0-47.0); HEMOGLOBIN 7.9 g/dl (12.0-15.5)
[2021-05-04 15:55] LABS: PERCENT SATURATION 17.6 % (13.2-45.0)
[2021-05-04] MEDS ORDERED: DOCUSATE SODIUM 100MG CAPSULE PO PRN (16:15)
[2021-05-04] MEDS ORDERED: MOM 30ML SUSPENSION UDC PO PRN (16:15)
[2021-05-04] MEDS: FERROUS SULFATE 325MG TAB PO SCH (20:53)
[2021-05-04 21:29] LABS: HEMATOCRIT 27.7 % (36.0-47.0); HEMOGLOBIN 8.4 g/dl (12.0-15.5)
[2021-05-05] VITALS (7 sets, daily range): BP systolic 98–132; BP diastolic 56–75
[2021-05-05] MEDS: SUCRALFATE SUSP 1GM/10ML UD PO SCH ×3 (00:06→11:50)
[2021-05-05] MEDS: NS 1,000 ML IV SCH ×3 (00:06→11:50)
[2021-05-05] MEDS: metroNIDAZOLE 500 MG in IV 1 EA IV SCH ×2 (02:14→08:48)
[2021-05-05] MEDS: MORPHINE 4 MG/ML 1ML VIAL/SYRINGE (J2270) IV PRN ×3 (02:15→12:33)
[2021-05-05 05:39] LABS: BASO % 0.6 % (0.0-1.0); EOS # 0.2 10^3/uL (0.0-0.5); EOS % 3.7 % (0.0-3.0); HEMATOCRIT 28.5 % (36.0-47.0); HEMOGLOBIN 8.5 g/dl (12.0-15.5); LYMPH # 1.6 10^3/uL (1.5-5.0); LYMPH % 32.2 % (24.0-44.0); MEAN CORPUSCULAR HGB CONC 29.8 g/dl (32.0-36.5); MEAN CORPUSCULAR VOLUME 77.2 fl (80.0-96.0); MONO # 0.3 10^3/uL (0.0-0.8); MONO % 6.3 % (2.0-8.0); NEUTROPHILS # 2.9 10^3/uL (1.5-8.5); PLATELET COUNT, AUTOMATED 123 10^3/uL (150-450); RED BLOOD COUNT 3.69 10^6/uL (4.00-5.40); WHITE BLOOD COUNT 5.1 10^3/uL (4.0-10.0)
[2021-05-05] MEDS: OXAZEPAM 10MG CAP PO SCH ×2 (05:44→14:32)
[2021-05-05 06:09] LABS: BLOOD UREA NITROGEN 4 MG/DL (7-18); CREATININE FOR GFR 0.52 MG/DL (0.55-1.30); GLUCOSE, FASTING 75 MG/DL (70-100)
[2021-05-05 06:10] LABS: ALBUMIN 2.6 GM/DL (3.2-5.2); ALT/SGPT 34 U/L (12-78); BILIRUBIN,TOTAL 1.2 MG/DL (0.2-1.0); CALCIUM LEVEL 7.8 MG/DL (8.5-10.1); CARBON DIOXIDE LEVEL 27 MEQ/L (21-32); CHLORIDE LEVEL 108 MEQ/L (98-107); GLOMERULAR FILTRATION RATE > 60.0 (>60); MAGNESIUM LEVEL 1.4 MG/DL (1.8-2.4); POTASSIUM SERUM 3.6 MEQ/L (3.5-5.1); SODIUM LEVEL 140 MEQ/L (136-145); TOTAL PROTEIN 6.1 GM/DL (6.4-8.2)
[2021-05-05] MEDS: cefTRIAXone SOD 1 GM in D5W MINI-BAG PLUS 50 ML IV SCH (07:54)
[2021-05-05] MEDS: FERROUS SULFATE 325MG TAB PO SCH (08:48)
[2021-05-05] MEDS: PANTOPRAZOLE 40MG VIAL (C9113 PER 1) IV SCH (08:48)
[2021-05-05] MEDS ORDERED: MULTIVITAMINS/MINERALS THERAP 1 TAB PO SCH (09:00)
[2021-05-05] MEDS ORDERED: FOLIC ACID 1 MG TAB PO SCH (09:00)
[2021-05-05] MEDS ORDERED: THIAMINE 100 MG TAB PO SCH (09:00)
[2021-05-05] MEDS ORDERED: MAG SULF 1GM/100ML (MAG RUN) 1 GM in IV 1 EA IV ONE (13:25)
[2021-05-05] MEDS ORDERED: PROHANCE 279.3MG/ML 15ML VIAL As Ordered ONE (13:37)
[2021-05-05] MEDS ORDERED: PROBCAP14 PO (16:07)
[2021-05-05] MEDS ORDERED: METR-265 PO (16:07)
[2021-05-05] MEDS ORDERED: THIA100TA PO (16:07)
[2021-05-05] MEDS ORDERED: CEFD300C41 PO (16:07)
[2021-05-05] MEDS ORDERED: VITMTA PO (16:07)
[2021-05-05] MEDS ORDERED: FOLI1TAB11 PO (16:07)
== END 2021-05-05 17:23 | disposition left against medical advice (07) | DRG 439 ==
LOC: M PCU 07:27
PROVIDERS: ADMIT Internal Medicine; ATTEND Internal Medicine
DX: K85.20 Alcohol induced acute pancreatitis without necrosis or infection (principal); F10.130 Alcohol abuse with withdrawal, uncomplicated; K76.6 Portal hypertension; N39.0 Urinary tract infection, site not specified; R74.01 Elevation of levels of liver transaminase levels; K70.30 Alcoholic cirrhosis of liver without ascites; D64.9 Anemia, unspecified; F31.9 Bipolar disorder, unspecified; F41.9 Anxiety disorder, unspecified; Z86.16 Personal history of COVID-19; K21.9 Gastro-esophageal reflux disease without esophagitis; Z91.041 Radiographic dye allergy status; Z91.19 Patient's noncompliance with other medical treatment and regimen

== ENCOUNTER 2021-08-25 14:37 | Observation (INO) | payer OTHER ==
[~2021-08-25] VITALS: Ht 162.6 cm; Wt 66.0 kg
[~2021-08-25 14:37] MED LIST changes: +ALPR0.25; +BUSP5TA; +PROBCAP14 PO
[2021-08-25] MEDS ORDERED: ONDANSETRON 4MG/2ML VIAL IV ONE (14:55)
[2021-08-25] MEDS ORDERED: MORPHINE 4 MG/ML 1ML VIAL/SYRINGE IV ONE ×2 (14:55→16:20)
[2021-08-25] MEDS ORDERED: PANTOPRAZOLE 40MG VIAL IV ONE (14:55)
[2021-08-25] MEDS ORDERED: NS 1,000 ML IV ONE (14:55)
[2021-08-25 15:22] LABS: BASO # 0.1 10^3/uL (0.0-0.2); BASO % 1.7 % (0.0-1.0); EOS % 0.7 % (0.0-3.0); HEMATOCRIT 31.6 % (36.0-47.0); HEMOGLOBIN 9.5 g/dl (12.0-15.5); LYMPH # 1.1 10^3/uL (1.5-5.0); LYMPH % 26.1 % (24.0-44.0); MEAN CORPUSCULAR HEMOGLOBIN 22.3 pg (27.0-33.0); MEAN CORPUSCULAR HGB CONC 30.1 g/dl (32.0-36.5); MEAN CORPUSCULAR VOLUME 74.2 fl (80.0-96.0); MONO # 0.4 10^3/uL (0.0-0.8); MONO % 9.8 % (2.0-8.0); NEUTROPHILS # 2.6 10^3/uL (1.5-8.5); NEUTROPHILS % 61.2 % (36.0-66.0); PLATELET COUNT, AUTOMATED 129 10^3/uL (150-450); RED BLOOD COUNT 4.26 10^6/uL (4.00-5.40); WHITE BLOOD COUNT 4.2 10^3/uL (4.0-10.0)
[2021-08-25 15:58] LABS: ALT/SGPT 70 U/L (12-78); AMYLASE 75 U/L (25-115); BILIRUBIN,DIRECT 0.5 MG/DL (0.0-0.2); BILIRUBIN,TOTAL 1.2 MG/DL (0.2-1.0); BLOOD UREA NITROGEN 4 MG/DL (7-18); CALCIUM LEVEL 8.7 MG/DL (8.5-10.1); CARBON DIOXIDE LEVEL 21 MEQ/L (21-32); CHLORIDE LEVEL 102 MEQ/L (98-107); CREATININE FOR GFR 0.63 MG/DL (0.55-1.30); ETHYL ALCOHOL (ETHANOL) 0.067 % (0.000-0.010); GLOMERULAR FILTRATION RATE > 60.0 (>60); GLUCOSE, FASTING 84 MG/DL (70-100); LIPASE 207 U/L (73-393); POTASSIUM SERUM 3.8 MEQ/L (3.5-5.1); SODIUM LEVEL 139 MEQ/L (136-145); TOTAL PROTEIN 8.1 GM/DL (6.4-8.2)
[2021-08-25 16:38] LABS: HCG, SERUM QUALITATIVE NEGATIVE (NEGATIVE)
[2021-08-25] MEDS ORDERED: HALOPERIDOL 5MG/ML VIAL (J1630 PER 1) IV STA (17:27)
[2021-08-25] MEDS ORDERED: GI COCKTAIL 50ML BTL(HYOSCYAMINE/MAALOX/LIDOCAINE VISCOUS)(1:3:1) PO ONE (20:25)
[2021-08-25] MEDS ORDERED: SUCRALFATE SUSP 1GM/10ML UD PO ONE (20:25)
[2021-08-25] MEDS ORDERED: LORazepam 2 MG/ML VIAL IV STA (21:39)
[2021-08-25] MEDS ORDERED: LORazepam 2 MG/ML VIAL As Ordered ONE (22:13)
[2021-08-26] MEDS ORDERED: MAALOX 30 ML SUSP *UDC PO PRN (00:05)
[2021-08-26] MEDS ORDERED: METOCLOPRAMIDE INJ 10MG/2ML VIAL (J2765 PER 1) IV PRN (00:05)
[2021-08-26] MEDS ORDERED: LORazepam 2 MG TAB XX PRN (00:05)
[2021-08-26] MEDS ORDERED: MOM 30ML SUSPENSION UDC PO PRN (00:05)
[2021-08-26] MEDS ORDERED: MORPHINE 4 MG/ML 1ML VIAL/SYRINGE IV PRN (00:05)
[2021-08-26] MEDS ORDERED: MORPHINE 2 MG/ML 1ML VIAL IV PRN (00:05)
[2021-08-26] MEDS ORDERED: ONDANSETRON 4MG/2ML VIAL IV PRN (00:05)
[2021-08-26] MEDS ORDERED: LORazepam 2 MG/ML VIAL IV PRN (00:30)
[2021-08-26 00:34] LABS: RSV AMPLIFICATION NEGATIVE (NEGATIVE)
[2021-08-26] MEDS ORDERED: PRENTAB53 PO (01:37)
[2021-08-26] MEDS ORDERED: HOME MED LIST COMPLETE! XX SCH (01:40)
[2021-08-26 02:55] VITALS: BP 113/58
[2021-08-26 03:20] VITALS: BP 113/58
[2021-08-26 05:23] LABS: HEMATOCRIT 29.6 % (36.0-47.0); HEMOGLOBIN 8.8 g/dl (12.0-15.5); MEAN CORPUSCULAR HEMOGLOBIN 22.7 pg (27.0-33.0); MEAN CORPUSCULAR HGB CONC 29.7 g/dl (32.0-36.5); MEAN CORPUSCULAR VOLUME 76.3 fl (80.0-96.0); RED BLOOD COUNT 3.88 10^6/uL (4.00-5.40); WHITE BLOOD COUNT 3.1 10^3/uL (4.0-10.0)
[2021-08-26 05:36] LABS: INR 1.39; PROTHROMBIN TIME 17.5 SECONDS (12.7-14.5)
[2021-08-26 05:37] LABS: PARTIAL THROMBOPLASTIN TIME 36.3 SECONDS (25.9-37.0)
[2021-08-26 05:41] LABS: PERCENT SATURATION 15.9 % (13.2-45.0)
[2021-08-26 05:42] LABS: ALBUMIN 3.4 GM/DL (3.2-5.2); ALT/SGPT 56 U/L (12-78); BILIRUBIN,TOTAL 1.4 MG/DL (0.2-1.0); BLOOD UREA NITROGEN 4 MG/DL (7-18); CALCIUM LEVEL 7.8 MG/DL (8.5-10.1); CARBON DIOXIDE LEVEL 24 MEQ/L (21-32); CHLORIDE LEVEL 98 MEQ/L (98-107); GLOMERULAR FILTRATION RATE > 60.0 (>60); GLUCOSE, FASTING 65 MG/DL (70-100); POTASSIUM SERUM 3.4 MEQ/L (3.5-5.1); SODIUM LEVEL 134 MEQ/L (136-145)
[2021-08-26 05:44] LABS: PLATELET COUNT, AUTOMATED 92 10^3/uL (150-450)
[2021-08-26 06:00] VITALS: BP 113/58
[2021-08-26] MEDS ORDERED: OXAZEPAM 15MG CAP PO SCH ×2 (06:00→14:00)
[2021-08-26 07:52] VITALS: BP 93/50
[2021-08-26 08:00] VITALS: BP 110/63
[2021-08-26] MEDS: SUCRALFATE SUSP 1GM/10ML UD PO SCH ×2 (08:16→12:09)
[2021-08-26] MEDS ORDERED: THIAMINE 100 MG TAB PO SCH (09:00)
[2021-08-26] MEDS ORDERED: DOCUSATE SODIUM 100MG CAPSULE PO SCH (09:00)
[2021-08-26] MEDS ORDERED: MULTIVITAMINS/MINERALS THERAP 1 TAB PO SCH (09:00)
[2021-08-26] MEDS ORDERED: ENOXAPARIN 40MG/0.4ML SYRINGE (J1650 PER 10MG) SC SCH (09:00)
[2021-08-26] MEDS ORDERED: PANTOPRAZOLE 40MG VIAL IV SCH (09:00)
[2021-08-26] MEDS ORDERED: FOLIC ACID 1 MG TAB PO SCH (09:00)
[2021-08-26 12:17] VITALS: BP 102/61
[2021-08-26 12:18] LABS: FOLATE 10.8 NG/ML (>5.4)
== END 2021-08-26 17:21 | disposition left against medical advice (07) ==
LOC: M ED 14:37 → EDBD 14:37 → M ED INP 14:38 → M PCU 08-26 02:54
PROVIDERS: ADMIT Family Medicine; ATTEND Family Medicine
DX: R10.13 Epigastric pain (principal); F10.239 Alcohol dependence with withdrawal, unspecified; Z53.20 Procedure and treatment not carried out because of patient's decision for unspecified reasons; D69.6 Thrombocytopenia, unspecified; R16.1 Splenomegaly, not elsewhere classified; K59.00 Constipation, unspecified; D61.818 Other pancytopenia; Z91.041 Radiographic dye allergy status
CPT/HCPCS: 36415; 74176; 80048; 80053; 80076; 82077; 82150; 82607; 82728; 82746; 83550; 83690; 84702; 84703; 85025; 85027; 85049; 85055; 85610; 85730; 87631; 93041; 96374; 96375; 96376; 99285; C9113; J1630; J2060; J2270; J2405

== ENCOUNTER 2021-12-09 07:48 | Day surgery (SDC) | payer OTHER ==
[~2021-12-09] VITALS: Ht 162.6 cm; Wt 66.7 kg
[~2021-12-09 07:48] MED LIST changes: +BENZ1LOZ2 PO; +CITA10TA7 PO; +ETON68IM IM; +ETON68IM SC; -NEXP1IMP IM; -NEXP1IMP SC; +PRENTAB53 PO; -SORE15LO PO
[2021-12-09] MEDS ORDERED: LR 1,000 ML IV SCH ×2 (08:05→10:45)
[2021-12-09] MEDS ORDERED: LIDOCAINE 2% 100MG/5ML SDV (FOR ANES.) As Ordered ONE (08:13)
[2021-12-09] MEDS ORDERED: propofoL 200 MG/20 ML VIAL As Ordered ONE (08:13)
[2021-12-09] MEDS ORDERED: ONDANSETRON 4MG 2ML VIAL As Ordered ONE (08:13)
[2021-12-09] MEDS ORDERED: dexameTHASONE 4 MG/ML 1ML VIAL (J1100 PER 1MG) As Ordered ONE (08:13)
[2021-12-09] MEDS ORDERED: ROCURONIUM BROMIDE 50 MG/5 ML VIAL As Ordered ONE (08:13)
[2021-12-09] MEDS ORDERED: KETOROLAC 60MG 2ML VIAL As Ordered ONE (08:13)
[2021-12-09] MEDS ORDERED: MIDAZOLAM INJ 2MG/2ML VIAL (J2250 PER 1MG) As Ordered ONE ×2 (08:14→11:45)
[2021-12-09] MEDS ORDERED: fentaNYL 100 MCG/2 ML INJECTION As Ordered ONE ×2 (08:14→10:45)
[2021-12-09 08:44] LABS: HEMATOCRIT 33.6 % (36.0-47.0); HEMOGLOBIN 9.9 g/dl (12.0-15.5); MEAN CORPUSCULAR HGB CONC 29.5 g/dl (32.0-36.5); MEAN CORPUSCULAR VOLUME 71.3 fl (80.0-96.0); PLATELET COUNT, AUTOMATED 182 10^3/uL (150-450); RED BLOOD COUNT 4.71 10^6/uL (4.00-5.40); WHITE BLOOD COUNT 5.1 10^3/uL (4.0-10.0)
[2021-12-09] MEDS ORDERED: ACETAMINOPHEN 650 MG SUPP As Ordered ONE (08:53)
[2021-12-09] MEDS ORDERED: BUPIVACAINE HCL 0.5% 30ML VIAL As Ordered ONE (08:54)
[2021-12-09] MEDS ORDERED: diphenhydrAMINE 50MG/ML VIAL (J1200) As Ordered ONE (09:04)
[2021-12-09 09:17] LABS: BLOOD UREA NITROGEN 7 MG/DL (7-18); CALCIUM LEVEL 9.1 MG/DL (8.5-10.1); CARBON DIOXIDE LEVEL 26 MEQ/L (21-32); CHLORIDE LEVEL 104 MEQ/L (98-107); CREATININE FOR GFR 0.62 MG/DL (0.55-1.30); GLOMERULAR FILTRATION RATE > 60.0 (>60); GLUCOSE, FASTING 100 MG/DL (70-100); HCG, SERUM QUANTITATIVE < 1.0 MIU/ML; POTASSIUM SERUM 3.7 MEQ/L (3.5-5.1); SODIUM LEVEL 138 MEQ/L (136-145)
[2021-12-09] MEDS ORDERED: SUGAMMADEX SODIUM 500 MG/5 ML VIAL (BRIDION) As Ordered ONE (10:32)
[2021-12-09] MEDS ORDERED: ONDANSETRON 4MG 2ML VIAL IV PRN (10:45)
[2021-12-09] MEDS: fentaNYL 100 MCG/2 ML INJECTION IV PRN ×4 (11:10→11:32)
[2021-12-09] MEDS: oxyCODONE 5MG TAB PO PRN ×2 (11:11→11:48)
[2021-12-09] MEDS: MIDAZOLAM INJ 2MG/2ML VIAL (J2250 PER 1MG) IV PRN ×2 (11:59→12:05)
[2021-12-09 13:17] VITALS: BP 106/65
== END 2021-12-09 13:22 | disposition home or self-care (01) ==
LOC: M SDC 07:48
PROVIDERS: ATTEND Obstetrics & Gynecology
DX: Z30.2 Encounter for sterilization (principal); Z30.432 Encounter for removal of intrauterine contraceptive device; N99.71 Accidental puncture and laceration of a genitourinary system organ or structure during a genitourinary system procedure; K74.60 Unspecified cirrhosis of liver; R16.2 Hepatomegaly with splenomegaly, not elsewhere classified; M41.9 Scoliosis, unspecified; F17.290 Nicotine dependence, other tobacco product, uncomplicated; Z91.041 Radiographic dye allergy status
CPT/HCPCS: 11982; 36415; 58661; 80048; 84702; 85027; 88300; 88302; J1100; J1200; J1885; J2250; J2405; J3010

== ENCOUNTER 2022-02-18 17:25 | Inpatient (IN) | payer OTHER ==
[~2022-02-18] VITALS: Ht 162.6 cm; Wt 66.5 kg
[2022-02-18 18:59] LABS: RSV AMPLIFICATION NEGATIVE (NEGATIVE)
[2022-02-18] MEDS ORDERED: NS 1,000 ML IV ONE (19:55)
[2022-02-18] MEDS: PANTOPRAZOLE 40MG VIAL IV ONE ×2 (20:15→20:22)
[2022-02-18 20:28] LABS: BASO # 0.1 10^3/uL (0.0-0.2); BASO % 0.8 % (0.0-1.0); EOS % 0.3 % (0.0-3.0); HEMATOCRIT 33.9 % (36.0-47.0); HEMOGLOBIN 10.2 g/dl (12.0-15.5); LYMPH # 1.2 10^3/uL (1.5-5.0); LYMPH % 13.4 % (24.0-44.0); MEAN CORPUSCULAR HEMOGLOBIN 23.3 pg (27.0-33.0); MEAN CORPUSCULAR HGB CONC 30.1 g/dl (32.0-36.5); MEAN CORPUSCULAR VOLUME 77.4 fl (80.0-96.0); MONO # 0.5 10^3/uL (0.0-0.8); MONO % 4.9 % (2.0-8.0); NEUTROPHILS # 7.3 10^3/uL (1.5-8.5); NEUTROPHILS % 79.8 % (36.0-66.0); PLATELET COUNT, AUTOMATED 203 10^3/uL (150-450); RED BLOOD COUNT 4.38 10^6/uL (4.00-5.40); WHITE BLOOD COUNT 9.1 10^3/uL (4.0-10.0)
[2022-02-18 20:40] LABS: INR 1.61; PROTHROMBIN TIME 19.4 SECONDS (12.5-14.5)
[2022-02-18 20:41] LABS: PARTIAL THROMBOPLASTIN TIME 36.8 SECONDS (24.8-34.2)
[2022-02-18 20:49] LABS: LIPASE 120 U/L (12-53)
[2022-02-18 20:50] LABS: HCG, SERUM QUALITATIVE NEGATIVE (NEGATIVE)
[2022-02-18 20:51] LABS: ALBUMIN 3.2 G/DL (3.2-5.2); ALKALINE PHOSPHATASE 269 U/L (46-116); ALT/SGPT 62 U/L (7.0-40); AST/SGOT 231 U/L (<34); BILIRUBIN,TOTAL 1.6 MG/DL (0.3-1.2); BLOOD UREA NITROGEN 9 MG/DL (9-23); CALCIUM LEVEL 8.1 MG/DL (8.5-10.1); CARBON DIOXIDE LEVEL 16 MMOL/L (20-31); CHLORIDE LEVEL 104 MMOL/L (98-107); CREATININE FOR GFR 0.49 MG/DL (0.55-1.30); GLOMERULAR FILTRATION RATE > 60.0 (>60); GLUCOSE, FASTING 56 MG/DL (60-100); POTASSIUM SERUM 3.3 MMOL/L (3.5-5.1); SODIUM LEVEL 142 MMOL/L (136-145); TOTAL PROTEIN 6.9 G/DL (5.7-8.2)
[2022-02-18] MEDS ORDERED: POTASSIUM CHLORIDE 10MEQ SR TABLET PO ONE (21:00)
[2022-02-18] MEDS ORDERED: DEXTROSE 50% 50 ML SYRINGE IV STA (21:01)
[2022-02-18] MEDS ORDERED: DEXTROSE 50% 50 ML SYRINGE As Ordered ONE (21:01)
[2022-02-18 21:23] LABS: ETHYL ALCOHOL (ETHANOL) 0.296 % (0.000-0.010)
[2022-02-18 21:25] LABS: ABG BASE EXCESS -8.6 (-2.0-2.0); ABG HCO3 17.1 MEQ/L (22.0-26.0); ABG O2 SATURATION 96.9 % (95.0-99.0); ABG PARTIAL PRESSURE O2 110.3 mmHg (75.0-100.0); ABG STANDARD HCO3 17.5 MEQ/L (22.0-26.0); ABG TOTAL CO2 18.2 MEQ/L (22.0-29.0); ABG pH (ARTERIAL) 7.295 UNITS (7.350-7.450)
[2022-02-18] MEDS ORDERED: NS 910 ML in IV 1 EA IV ONE (21:35)
[2022-02-18] MEDS: cefTRIAXone SOD 2 GM in D5W MINI-BAG PLUS 50 ML IV ONE ×2 (21:49→22:10)
[2022-02-18] MEDS ORDERED: MULTTAB20 PO (22:04)
[2022-02-18] MEDS ORDERED: HOME MED LIST COMPLETE! XX SCH (22:05)
[2022-02-18] MEDS ORDERED: MORPHINE 2 MG/ML 1ML VIAL IV ONE (23:05)
[2022-02-19] MEDS ORDERED: KETOROLAC 30 MG/ML 1ML VIAL IV PRN
[2022-02-19] MEDS ORDERED: OXAZEPAM 15MG CAP PO SCH
[2022-02-19] MEDS ORDERED: LORazepam 2 MG TAB XX PRN (00:05)
[2022-02-19] MEDS ORDERED: LORazepam 2 MG/ML VIAL IV PRN (00:15)
[2022-02-19] MEDS ORDERED: DEXTROSE 50% 50 ML SYRINGE IV PRN (00:30)
[2022-02-19 00:54] VITALS: BP 108/52
[2022-02-19] MEDS: NS 1,000 ML IV SCH ×2 (01:31→12:11)
[2022-02-19] MEDS: PIPERACILLIN/TAZOBACTAM SOD 4.5 GM in D5W MINI-BAG PLUS 50 ML IV SCH ×3 (01:31→12:12)
[2022-02-19] MEDS ORDERED: LORazepam 2 MG/ML VIAL IV ONE (02:00)
[2022-02-19] MEDS ORDERED: PROMETHAZINE 25MG/ML 1ML VIAL IV PRN (02:20)
[2022-02-19] MEDS ORDERED: MORPHINE 2 MG/ML 1ML VIAL IV PRN (02:20)
[2022-02-19 04:00] VITALS: BP 104/56
[2022-02-19 04:15] LABS: BASO # 0.1 10^3/uL (0.0-0.2); BASO % 0.9 % (0.0-1.0); EOS # 0.1 10^3/uL (0.0-0.5); EOS % 1.4 % (0.0-3.0); HEMATOCRIT 28.3 % (36.0-47.0); HEMOGLOBIN 8.5 g/dl (12.0-15.5); LYMPH # 2.2 10^3/uL (1.5-5.0); MEAN CORPUSCULAR HEMOGLOBIN 23.1 pg (27.0-33.0); MEAN CORPUSCULAR VOLUME 76.9 fl (80.0-96.0); MONO # 0.6 10^3/uL (0.0-0.8); MONO % 7.7 % (2.0-8.0); NEUTROPHILS # 4.9 10^3/uL (1.5-8.5); NEUTROPHILS % 61.7 % (36.0-66.0); PLATELET COUNT, AUTOMATED 150 10^3/uL (150-450); RED BLOOD COUNT 3.68 10^6/uL (4.00-5.40); WHITE BLOOD COUNT 7.9 10^3/uL (4.0-10.0)
[2022-02-19] MEDS: OXAZEPAM 15MG CAP PO SCH ×3 (04:24→14:37)
[2022-02-19 04:46] LABS: ALBUMIN 2.9 G/DL (3.2-5.2); ALKALINE PHOSPHATASE 236 U/L (46-116); ALT/SGPT 54 U/L (7.0-40); AST/SGOT 161 U/L (<34); BILIRUBIN,TOTAL 0.9 MG/DL (0.3-1.2); BLOOD UREA NITROGEN 5 MG/DL (9-23); CALCIUM LEVEL 7.2 MG/DL (8.5-10.1); CARBON DIOXIDE LEVEL 18 MMOL/L (20-31); CHLORIDE LEVEL 106 MMOL/L (98-107); CREATININE FOR GFR 0.47 MG/DL (0.55-1.30); GLOMERULAR FILTRATION RATE > 60.0 (>60); GLUCOSE, FASTING 56 MG/DL (60-100); POTASSIUM SERUM 3.9 MMOL/L (3.5-5.1); SODIUM LEVEL 138 MMOL/L (136-145); TOTAL PROTEIN 6.1 G/DL (5.7-8.2)
[2022-02-19 06:47] LABS: MAGNESIUM LEVEL 1.1 MG/DL (1.8-2.4)
[2022-02-19 08:03] VITALS: BP 113/58
[2022-02-19] MEDS ORDERED: THIAMINE 200MG 2ML VIAL IV SCH (09:00)
[2022-02-19] MEDS ORDERED: PANTOPRAZOLE 40MG VIAL IV SCH (09:00)
[2022-02-19 10:25] LABS: HEMATOCRIT 28.5 % (36.0-47.0); HEMOGLOBIN 8.5 g/dl (12.0-15.5)
[2022-02-19] MEDS: MORPHINE 2 MG/ML 1ML VIAL IV PRN ×2 (12:12→17:04)
[2022-02-19 12:16] VITALS: BP 95/51
[2022-02-19 14:00] VITALS: BP 99/54
[2022-02-19] MEDS: MAG SULF 1GM/100ML (MAG RUN) 1 GM in IV 1 EA IV SCH ×3 (14:37→17:00)
[2022-02-19 19:39] LABS: HEMATOCRIT 27.6 % (36.0-47.0); HEMOGLOBIN 8.4 g/dl (12.0-15.5)
[2022-02-20] MEDS ORDERED: OXAZEPAM 15MG CAP PO SCH ×2 (05:00)
[2022-02-21] MEDS ORDERED: OXAZEPAM 15MG CAP PO SCH (09:00)
[2022-02-22] MEDS ORDERED: OXAZEPAM 15MG CAP PO SCH (09:00)
== END 2022-02-19 20:30 | disposition left against medical advice (07) | DRG 378 ==
LOC: M ED 17:25 → M ED INP 23:35 → M PCU 02-19 00:54
PROVIDERS: ADMIT Family Medicine; ATTEND Family Medicine
DX: K29.71 Gastritis, unspecified, with bleeding (principal); K86.0 Alcohol-induced chronic pancreatitis; I85.00 Esophageal varices without bleeding; K31.89 Other diseases of stomach and duodenum; I95.9 Hypotension, unspecified; E87.20 Acidosis, unspecified; E87.6 Hypokalemia; R74.01 Elevation of levels of liver transaminase levels; K70.30 Alcoholic cirrhosis of liver without ascites; D64.9 Anemia, unspecified; F41.9 Anxiety disorder, unspecified; F31.9 Bipolar disorder, unspecified; K21.9 Gastro-esophageal reflux disease without esophagitis; F10.220 Alcohol dependence with intoxication, uncomplicated; E83.42 Hypomagnesemia; Z20.822 Contact with and (suspected) exposure to COVID-19; K70.10 Alcoholic hepatitis without ascites

== ENCOUNTER 2022-07-23 10:39 | Inpatient (IN) | payer OTHER ==
[~2022-07-23] VITALS: Ht 162.6 cm; Wt 65.3 kg
[~2022-07-23 10:39] MED LIST changes: +MULTTAB20 PO
[2022-07-23 11:47] LABS: HEMATOCRIT 39.8 % (36.0-47.0); HEMOGLOBIN 12.2 g/dl (12.0-15.5); MEAN CORPUSCULAR HEMOGLOBIN 25.9 pg (27.0-33.0); MEAN CORPUSCULAR HGB CONC 30.7 g/dl (32.0-36.5); MEAN CORPUSCULAR VOLUME 84.5 fl (80.0-96.0); PLATELET COUNT, AUTOMATED 247 10^3/uL (150-450); RED BLOOD COUNT 4.71 10^6/uL (4.00-5.40); WHITE BLOOD COUNT 8.9 10^3/uL (4.0-10.0)
[2022-07-23 12:04] LABS: ACETAMINOPHEN LEVEL < 2.0 UG/ML (10.0-20.0)
[2022-07-23 12:05] LABS: ALBUMIN 3.4 G/DL (3.2-5.2); ALKALINE PHOSPHATASE 270 U/L (46-116); ALT/SGPT 57 U/L (7.0-40); AST/SGOT 121 U/L (<34); BILIRUBIN,DIRECT 0.4 MG/DL (<0.4); BILIRUBIN,TOTAL 0.9 MG/DL (0.3-1.2); BLOOD UREA NITROGEN 8 MG/DL (9-23); CALCIUM LEVEL 8.5 MG/DL (8.5-10.1); CARBON DIOXIDE LEVEL 23 MMOL/L (20-31); CHLORIDE LEVEL 105 MMOL/L (98-107); CREATININE FOR GFR 0.51 MG/DL (0.55-1.30); GLOMERULAR FILTRATION RATE > 60.0 (>60); GLUCOSE, FASTING 76 MG/DL (60-100); POTASSIUM SERUM 3.3 MMOL/L (3.5-5.1); SALICYLATE LEVEL < 3.0 MG/DL (<30); SODIUM LEVEL 144 MMOL/L (136-145)
[2022-07-23 12:07] LABS: THYROID STIMULATING HORMONE 1.564 uIU/ML (0.55-4.78)
[2022-07-23 12:09] LABS: HCG, SERUM QUALITATIVE NEGATIVE (NEGATIVE)
[2022-07-23 12:26] LABS: ETHYL ALCOHOL (ETHANOL) 0.422 % (0.000-0.010)
[2022-07-23] MEDS ORDERED: POTASSIUM CHLORIDE 10MEQ SR TABLET PO ONE (13:05)
[2022-07-23 14:23] LABS: AMPHETAMINES LEVEL URINE NEGATIVE (NEGATIVE); BARBITURATES URINE NEGATIVE (NEGATIVE); CANNABINOIDS URINE NEGATIVE (NEGATIVE); COCAINE METABOLITE URINE NEGATIVE (NEGATIVE); METHADONE URINE NEGATIVE (NEGATIVE); OPIATES URINE NEGATIVE (NEGATIVE); PHENCYCLIDINE URINE NEGATIVE (NEGATIVE)
[2022-07-23 14:27] LABS: BENZODIAZEPINES URINE POSITIVE (NEGATIVE)
[2022-07-23] MEDS ORDERED: ONDANSETRON 4MG ORAL DISINTEGRATING TAB PO ONE (20:50)
[2022-07-23] MEDS: THIAMINE 100 MG TAB PO SCH (21:00)
[2022-07-23] MEDS ORDERED: ACETAMINOPHEN TAB 650MG DOSE (2X325MG) PO ONE (21:25)
[2022-07-23] MEDS ORDERED: cefTRIAXone SOD 1 GM in D5W MINI-BAG PLUS 50 ML IV ONE (22:00)
[2022-07-23] MEDS ORDERED: OXAZEPAM 15MG CAP PO ONE (22:00)
[2022-07-23] MEDS ORDERED: NS 1,000 ML IV ONE (22:40)
[2022-07-23] MEDS ORDERED: IBUPROFEN 600MG TAB PO ONE (22:40)
[2022-07-23] MEDS ORDERED: HOME MED LIST COMPLETE! XX SCH (23:05)
[2022-07-23] MEDS ORDERED: LORazepam 2 MG TAB PO PRN (23:20)
[2022-07-23] MEDS ORDERED: SODIUM CHLORIDE 0.9% 1000ML IV SCH (23:20)
[2022-07-23] MEDS: NS 1,000 ML IV SCH (23:20)
[2022-07-24 05:44] LABS: INR 1.43; PROTHROMBIN TIME 17.7 SECONDS (12.5-14.5)
[2022-07-24 05:55] LABS: ALBUMIN 2.6 G/DL (3.2-5.2); ALKALINE PHOSPHATASE 247 U/L (46-116); ALT/SGPT 46 U/L (7.0-40); AST/SGOT 118 U/L (<34); BILIRUBIN,TOTAL 0.9 MG/DL (0.3-1.2); BLOOD UREA NITROGEN 6 MG/DL (9-23); CALCIUM LEVEL 7.6 MG/DL (8.5-10.1); CARBON DIOXIDE LEVEL 25 MMOL/L (20-31); CHLORIDE LEVEL 104 MMOL/L (98-107); CREATININE FOR GFR 0.46 MG/DL (0.55-1.30); GLOMERULAR FILTRATION RATE > 60.0 (>60); GLUCOSE, FASTING 87 MG/DL (60-100); POTASSIUM SERUM 3.9 MMOL/L (3.5-5.1); SODIUM LEVEL 137 MMOL/L (136-145); TOTAL PROTEIN 6.2 G/DL (5.7-8.2)
[2022-07-24] MEDS: THIAMINE 100 MG TAB PO SCH ×2 (08:23→20:35)
[2022-07-24] MEDS: MULTIVITAMINS/MINERALS THERAP 1 TAB PO SCH (08:24)
[2022-07-24] MEDS: FOLIC ACID 1MG TAB PO SCH (08:24)
[2022-07-24] MEDS ORDERED: PANTOPRAZOLE 40MG TAB (PROTONIX) PO SCH (09:00)
[2022-07-24] MEDS: NS 1,000 ML IV SCH ×2 (09:13→21:26)
[2022-07-24 11:37] VITALS: BP 121/65
[2022-07-24] MEDS: ACETAMINOPHEN TAB 650MG DOSE (2X325MG) PO PRN ×2 (12:10→20:36)
[2022-07-24] MEDS: ONDANSETRON 4MG 2ML VIAL IV PRN ×2 (12:10→20:35)
[2022-07-24] MEDS: KETOROLAC 30 MG/ML 1ML VIAL IV PRN ×2 (14:36→21:56)
[2022-07-24 15:41] VITALS: BP 114/78
[2022-07-24 20:00] VITALS: BP 120/76
[2022-07-24] MEDS: PANTOPRAZOLE 40MG TAB (PROTONIX) PO SCH (20:35)
[2022-07-24] MEDS: OXAZEPAM 10MG CAP PO SCH (20:35)
[2022-07-24] MEDS: SUCRALFATE SUSP 1GM/10ML UD PO SCH (20:35)
[2022-07-24] MEDS ORDERED: cefTRIAXone SOD 1 GM in D5W MINI-BAG PLUS 50 ML IV SCH (22:00)
[2022-07-25] VITALS: BP 101/66
[2022-07-25 03:38] LABS: BASO % 0.3 % (0.0-1.0); EOS # 0.2 10^3/uL (0.0-0.5); EOS % 3.3 % (0.0-3.0); HEMATOCRIT 29.8 % (36.0-47.0); LYMPH # 1.2 10^3/uL (1.5-5.0); LYMPH % 20.8 % (24.0-44.0); MEAN CORPUSCULAR HEMOGLOBIN 26.6 pg (27.0-33.0); MEAN CORPUSCULAR HGB CONC 31.2 g/dl (32.0-36.5); MEAN CORPUSCULAR VOLUME 85.4 fl (80.0-96.0); MONO # 0.5 10^3/uL (0.0-0.8); MONO % 8.3 % (2.0-8.0); NEUTROPHILS # 3.9 10^3/uL (1.5-8.5); NEUTROPHILS % 66.8 % (36.0-66.0); RED BLOOD COUNT 3.49 10^6/uL (4.00-5.40); WHITE BLOOD COUNT 5.8 10^3/uL (4.0-10.0)
[2022-07-25 04:00] VITALS: BP 92/54
[2022-07-25] MEDS ORDERED: MORPHINE 2 MG/ML 1ML VIAL IV ONE (04:00)
[2022-07-25 04:04] LABS: ALBUMIN 2.4 G/DL (3.2-5.2); ALKALINE PHOSPHATASE 240 U/L (46-116); ALT/SGPT 39 U/L (7.0-40); AST/SGOT 91 U/L (<34); BILIRUBIN,DIRECT 0.3 MG/DL (<0.4); BILIRUBIN,TOTAL 0.6 MG/DL (0.3-1.2); BLOOD UREA NITROGEN < 5 MG/DL (9-23); CALCIUM LEVEL 7.7 MG/DL (8.5-10.1); CARBON DIOXIDE LEVEL 25 MMOL/L (20-31); CHLORIDE LEVEL 106 MMOL/L (98-107); CREATININE FOR GFR 0.49 MG/DL (0.55-1.30); GLOMERULAR FILTRATION RATE > 60.0 (>60); GLUCOSE, FASTING 92 MG/DL (60-100); POTASSIUM SERUM 3.5 MMOL/L (3.5-5.1); SODIUM LEVEL 139 MMOL/L (136-145)
[2022-07-25 04:11] LABS: PLATELET COUNT, AUTOMATED 90 10^3/uL (150-450)
[2022-07-25 04:12] LABS: HEMOGLOBIN 9.3 g/dl (12.0-15.5)
[2022-07-25] MEDS: SUCRALFATE SUSP 1GM/10ML UD PO SCH ×3 (07:36→17:37)
[2022-07-25] MEDS: KETOROLAC 30 MG/ML 1ML VIAL IV PRN ×2 (07:44→14:39)
[2022-07-25 08:03] VITALS: BP 103/70
[2022-07-25] MEDS: OXAZEPAM 10MG CAP PO SCH (09:00)
[2022-07-25] MEDS: MULTIVITAMINS/MINERALS THERAP 1 TAB PO SCH (09:44)
[2022-07-25] MEDS: THIAMINE 100 MG TAB PO SCH (09:44)
[2022-07-25] MEDS: FOLIC ACID 1MG TAB PO SCH (09:44)
[2022-07-25] MEDS: PANTOPRAZOLE 40MG TAB (PROTONIX) PO SCH (09:44)
[2022-07-25] MEDS: ACETAMINOPHEN TAB 650MG DOSE (2X325MG) PO PRN (13:01)
[2022-07-25 20:00] VITALS: BP 137/90
[2022-07-25] MEDS ORDERED: CEFD300C41 PO (21:39)
== END 2022-07-25 20:55 | disposition left against medical advice (07) | DRG 872 ==
LOC: M ED 10:39 → M ED INP 23:19 → M PCU 07-24 11:30 → UNDODISIN 07-25 20:55
PROVIDERS: ADMIT Internal Medicine; ATTEND Internal Medicine
DX: A41.9 Sepsis, unspecified organism (principal); K76.6 Portal hypertension; E87.20 Acidosis, unspecified; K86.0 Alcohol-induced chronic pancreatitis; F10.239 Alcohol dependence with withdrawal, unspecified; N10 Acute pyelonephritis; R45.851 Suicidal ideations; F10.220 Alcohol dependence with intoxication, uncomplicated; F17.200 Nicotine dependence, unspecified, uncomplicated; F31.9 Bipolar disorder, unspecified; K44.9 Diaphragmatic hernia without obstruction or gangrene; K70.30 Alcoholic cirrhosis of liver without ascites; D50.9 Iron deficiency anemia, unspecified; R65.20 Severe sepsis without septic shock; D69.59 Other secondary thrombocytopenia; K20.90 Esophagitis, unspecified without bleeding; R74.01 Elevation of levels of liver transaminase levels; E86.0 Dehydration; Z91.041 Radiographic dye allergy status; Z20.822 Contact with and (suspected) exposure to COVID-19

== ENCOUNTER 2023-03-28 04:56 | Inpatient (IN) | payer OTHER ==
[~2023-03-28] VITALS: Ht 162.6 cm; Wt 63.9 kg
[~2023-03-28 04:56] MED LIST changes: -BENZ1LOZ2 PO; +CEFD1CAP9 PO; -CEFD300C41 PO; +CONS10SO3 PO; +CREO24CA PO; +FERR325T3 PO; -GABA-283 PO; +GABA-284 PO; +HYDR1CAP25 PO; +MAGN400C2 PO; +PREN1CHW PO; +SORE15LO PO
[2023-03-28 05:36] LABS: BASO # 0.1 10^3/uL (0.0-0.2); BASO % 1.2 % (0.0-1.0); EOS # 0.1 10^3/uL (0.0-0.5); EOS % 1.6 % (0.0-3.0); HEMATOCRIT 34.1 % (36.0-47.0); HEMOGLOBIN 10.8 g/dl (12.0-15.5); LYMPH # 1.4 10^3/uL (1.5-5.0); LYMPH % 17.4 % (24.0-44.0); MEAN CORPUSCULAR HEMOGLOBIN 26.6 pg (27.0-33.0); MEAN CORPUSCULAR HGB CONC 31.7 g/dl (32.0-36.5); MONO # 0.6 10^3/uL (0.0-0.8); MONO % 7.1 % (2.0-8.0); NEUTROPHILS % 72.3 % (36.0-66.0); PLATELET COUNT, AUTOMATED 228 10^3/uL (150-450); RED BLOOD COUNT 4.06 10^6/uL (4.00-5.40); WHITE BLOOD COUNT 8.3 10^3/uL (4.0-10.0)
[2023-03-28 05:54] LABS: INR 1.4; PROTHROMBIN TIME 16.7 SECONDS (12.5-14.5)
[2023-03-28 05:55] LABS: PARTIAL THROMBOPLASTIN TIME 26.9 SECONDS (24.8-34.2)
[2023-03-28 05:58] LABS: LIPASE 95 U/L (12-53)
[2023-03-28 06:00] LABS: CPK CREATINE PHOSPHOKINASE 47 U/L (34-145)
[2023-03-28 06:01] LABS: ALBUMIN 3.4 G/DL (3.2-5.2); ALKALINE PHOSPHATASE 247 U/L (46-116); ALT/SGPT 35 U/L (7.0-40); AST/SGOT 63 U/L (<34); BILIRUBIN,DIRECT 0.6 MG/DL (<0.4); BILIRUBIN,TOTAL 1.2 MG/DL (0.3-1.2); BLOOD UREA NITROGEN 5 MG/DL (9-23); CALCIUM LEVEL 9.2 MG/DL (8.5-10.1); CARBON DIOXIDE LEVEL 24 MMOL/L (20-31); CHLORIDE LEVEL 104 MMOL/L (98-107); CK-MB VALUE MASS < 1.0 NG/ML (<3.6); CREATININE FOR GFR 0.45 MG/DL (0.55-1.30); GLOMERULAR FILTRATION RATE > 60.0 (>60); GLUCOSE, FASTING 94 MG/DL (60-100); MB/CK RELATIVE INDEX 2.12 (< OR =4); POTASSIUM SERUM 3.5 MMOL/L (3.5-5.1); SODIUM LEVEL 138 MMOL/L (136-145)
[2023-03-28] MEDS ORDERED: ONDANSETRON 4MG 2ML VIAL IV ONE ×2 (06:05→10:40)
[2023-03-28 06:08] LABS: ETHYL ALCOHOL (ETHANOL) < 0.003 % (0.000-0.010)
[2023-03-28] MEDS ORDERED: NS 1,000 ML IV ONE (06:10)
[2023-03-28] MEDS: MORPHINE 4 MG/ML 1ML VIAL IV PRN ×2 (06:10→11:00)
[2023-03-28 09:25] LABS: BARBITURATES URINE NEGATIVE (NEGATIVE); COCAINE METABOLITE URINE NEGATIVE (NEGATIVE)
[2023-03-28 09:26] LABS: AMPHETAMINES LEVEL URINE NEGATIVE (NEGATIVE); BENZODIAZEPINES URINE NEGATIVE (NEGATIVE); CANNABINOIDS URINE NEGATIVE (NEGATIVE); METHADONE URINE NEGATIVE (NEGATIVE); PHENCYCLIDINE URINE NEGATIVE (NEGATIVE)
[2023-03-28 09:33] LABS: OPIATES URINE POSITIVE (NEGATIVE)
[2023-03-28] MEDS ORDERED: MED REC IN PROGRESS XX SCH (11:05)
[2023-03-28] MEDS ORDERED: MORPHINE 2 MG/ML 1ML VIAL IV PRN (11:35)
[2023-03-28] MEDS ORDERED: ACETAMINOPHEN 500 MG TAB PO PRN ×2 (11:35)
[2023-03-28] MEDS ORDERED: ONDA4TAB6 PO (11:50)
[2023-03-28] MEDS ORDERED: HOME MED LIST COMPLETE! XX SCH (11:55)
[2023-03-28] MEDS: LR 1,000 ML IV SCH ×3 (13:05→23:26)
[2023-03-28] MEDS ORDERED: LORazepam 2 MG TAB PO PRN (16:45)
[2023-03-28] MEDS ORDERED: ONDANSETRON 4MG 2ML VIAL IV SCH (18:00)
[2023-03-28 18:17] VITALS: BP 116/64
[2023-03-28 18:30] VITALS: BP 116/64; TEMP 99; O2SAT 98
[2023-03-28] MEDS: THIAMINE 100 MG TAB PO SCH (18:37)
[2023-03-28 20:20] VITALS: BP 119/74; TEMP 98.6; O2SAT 98
[2023-03-28] MEDS: MORPHINE 2 MG/ML 1ML VIAL IV PRN (20:54)
[2023-03-28 22:00] VITALS: BP 102/68; TEMP 98.8; O2SAT 98
[2023-03-29] MEDS: MORPHINE 2 MG/ML 1ML VIAL IV PRN ×5 (01:24→23:55)
[2023-03-29 02:00] VITALS: BP 105/68; TEMP 98.2; O2SAT 98
[2023-03-29] MEDS: ONDANSETRON 4MG 2ML VIAL IV PRN ×2 (05:31→18:02)
[2023-03-29 05:50] LABS: HEMATOCRIT 29.9 % (36.0-47.0); HEMOGLOBIN 9.5 g/dl (12.0-15.5); MEAN CORPUSCULAR HEMOGLOBIN 27.2 pg (27.0-33.0); MEAN CORPUSCULAR HGB CONC 31.8 g/dl (32.0-36.5); MEAN CORPUSCULAR VOLUME 85.7 fl (80.0-96.0); PLATELET COUNT, AUTOMATED 175 10^3/uL (150-450); RED BLOOD COUNT 3.49 10^6/uL (4.00-5.40); WHITE BLOOD COUNT 5.9 10^3/uL (4.0-10.0)
[2023-03-29 06:00] VITALS: BP 108/69; TEMP 98.6; O2SAT 98
[2023-03-29 06:22] LABS: LIPASE 86 U/L (12-53)
[2023-03-29 06:25] LABS: AMYLASE 87 U/L (30-118)
[2023-03-29 06:27] LABS: ALBUMIN 2.6 G/DL (3.2-5.2); ALKALINE PHOSPHATASE 181 U/L (46-116); ALT/SGPT 26 U/L (7.0-40); AST/SGOT 49 U/L (<34); BLOOD UREA NITROGEN < 5 MG/DL (9-23); CALCIUM LEVEL 8.1 MG/DL (8.5-10.1); CARBON DIOXIDE LEVEL 23 MMOL/L (20-31); CHLORIDE LEVEL 107 MMOL/L (98-107); CREATININE FOR GFR 0.54 MG/DL (0.55-1.30); GLOMERULAR FILTRATION RATE > 60.0 (>60); GLUCOSE, FASTING 73 MG/DL (60-100); POTASSIUM SERUM 3.6 MMOL/L (3.5-5.1); SODIUM LEVEL 139 MMOL/L (136-145)
[2023-03-29] MEDS: LR 1,000 ML IV SCH ×2 (07:44→18:04)
[2023-03-29] MEDS: MULTIVITAMINS/MINERALS THERAP 1 TAB PO SCH (08:09)
[2023-03-29] MEDS: PANTOPRAZOLE 40MG TAB (PROTONIX) PO SCH (08:09)
[2023-03-29] MEDS: THIAMINE 100 MG TAB PO SCH ×2 (08:09→20:18)
[2023-03-29] MEDS: SUCRALFATE 1 GM TAB PO SCH ×3 (08:09→18:01)
[2023-03-29] MEDS: FOLIC ACID 1MG TAB PO SCH (08:09)
[2023-03-29] MEDS: CREON-24 CAPSULE PO SCH ×3 (08:09→18:02)
[2023-03-29] MEDS ORDERED: NS 1,000 ML IV ONE (09:00)
[2023-03-29] MEDS ORDERED: SUCRALFATE SUSP 1GM/10ML UD PO ONE (09:00)
[2023-03-29] MEDS ORDERED: LACTULOSE 20GM/30ML SYRUP UDC PO SCH (09:00)
[2023-03-29] MEDS ORDERED: KETOROLAC 30 MG/ML 1ML VIAL IV ONE (09:00)
[2023-03-29 10:00] VITALS: BP 101/64; TEMP 98.5; O2SAT 98
[2023-03-29 14:00] VITALS: BP_SYST 114; BP_DIAS 70; BP_DIAS 72; TEMP 98.2; O2SAT 97
[2023-03-29 21:18] VITALS: BP 111/70; TEMP 98.1; O2SAT 99
[2023-03-29 22:00] VITALS: BP 110/69
[2023-03-30] MEDS: LR 1,000 ML IV SCH ×3 (02:47→17:43)
[2023-03-30] MEDS: ONDANSETRON 4MG 2ML VIAL IV PRN ×2 (02:47→20:01)
[2023-03-30 05:07] VITALS: BP 110/68; TEMP 98.6; O2SAT 96
[2023-03-30 06:00] VITALS: BP 117/70
[2023-03-30 06:05] LABS: HEMOGLOBIN 9.4 g/dl (12.0-15.5); MEAN CORPUSCULAR HEMOGLOBIN 26.8 pg (27.0-33.0); MEAN CORPUSCULAR HGB CONC 31.3 g/dl (32.0-36.5); MEAN CORPUSCULAR VOLUME 85.5 fl (80.0-96.0); PLATELET COUNT, AUTOMATED 162 10^3/uL (150-450); RED BLOOD COUNT 3.51 10^6/uL (4.00-5.40); WHITE BLOOD COUNT 4.6 10^3/uL (4.0-10.0)
[2023-03-30] MEDS: MORPHINE 2 MG/ML 1ML VIAL IV PRN ×3 (06:06→17:43)
[2023-03-30 06:37] LABS: ALBUMIN 2.5 G/DL (3.2-5.2); ALKALINE PHOSPHATASE 174 U/L (46-116); ALT/SGPT 26 U/L (7.0-40); AST/SGOT 53 U/L (<34); BILIRUBIN,TOTAL 0.7 MG/DL (0.3-1.2); BLOOD UREA NITROGEN < 5 MG/DL (9-23); CARBON DIOXIDE LEVEL 26 MMOL/L (20-31); CHLORIDE LEVEL 110 MMOL/L (98-107); CREATININE FOR GFR 0.56 MG/DL (0.55-1.30); GLOMERULAR FILTRATION RATE > 60.0 (>60); GLUCOSE, FASTING 98 MG/DL (60-100); POTASSIUM SERUM 3.5 MMOL/L (3.5-5.1); SODIUM LEVEL 143 MMOL/L (136-145); TOTAL PROTEIN 5.7 G/DL (5.7-8.2)
[2023-03-30 08:31] LABS: LIPASE 211 U/L (12-53)
[2023-03-30 08:33] LABS: AMYLASE 160 U/L (30-118)
[2023-03-30] MEDS ORDERED: MOM 30ML SUSPENSION UDC PO PRN (08:40)
[2023-03-30] MEDS ORDERED: oxyCODONE 5MG TAB PO PRN (08:40)
[2023-03-30] MEDS ORDERED: SENOKOT S TAB PO PRN (08:40)
[2023-03-30] MEDS ORDERED: BISACODYL 10MG SUPP PR PRN (08:40)
[2023-03-30] MEDS ORDERED: FLEET ENEMA PR PRN (08:40)
[2023-03-30] MEDS: THIAMINE 100 MG TAB PO SCH ×2 (08:54→20:01)
[2023-03-30] MEDS: FOLIC ACID 1MG TAB PO SCH (08:54)
[2023-03-30] MEDS: MULTIVITAMINS/MINERALS THERAP 1 TAB PO SCH (08:54)
[2023-03-30] MEDS: PANTOPRAZOLE 40MG TAB (PROTONIX) PO SCH (08:54)
[2023-03-30] MEDS: CREON-24 CAPSULE PO SCH ×3 (08:55→17:42)
[2023-03-30] MEDS: SUCRALFATE 1 GM TAB PO SCH ×3 (08:55→17:42)
[2023-03-30] MEDS: PREGABALIN 75 MG CAP(LYRICA) PO SCH ×2 (08:58→20:01)
[2023-03-30] MEDS: LACTULOSE 20GM/30ML SYRUP UDC PO SCH (08:58)
[2023-03-30 14:00] VITALS: BP 116/70; TEMP 98.2; O2SAT 97
[2023-03-30] MEDS: oxyCODONE 5MG TAB PO PRN ×2 (16:14→22:28)
[2023-03-30 18:57] LABS: ALBUMIN 2.6 G/DL (3.2-5.2); BILIRUBIN,DIRECT 0.4 MG/DL (<0.4); BILIRUBIN,TOTAL 0.7 MG/DL (0.3-1.2)
[2023-03-30 20:00] VITALS: BP 116/72; TEMP 98.2; O2SAT 99
[2023-03-31] MEDS: MORPHINE 2 MG/ML 1ML VIAL IV PRN (01:22)
[2023-03-31] MEDS: LR 1,000 ML IV SCH (01:22)
[2023-03-31 02:10] VITALS: BP 114/73; TEMP 98.1; O2SAT 98
[2023-03-31] MEDS: ONDANSETRON 4MG 2ML VIAL IV PRN (03:14)
[2023-03-31 05:46] LABS: HEMOGLOBIN 9.3 g/dl (12.0-15.5); MEAN CORPUSCULAR HEMOGLOBIN 26.6 pg (27.0-33.0); PLATELET COUNT, AUTOMATED 135 10^3/uL (150-450); RED BLOOD COUNT 3.49 10^6/uL (4.00-5.40); WHITE BLOOD COUNT 4.1 10^3/uL (4.0-10.0)
[2023-03-31 06:10] VITALS: BP 126/73; TEMP 98.2; O2SAT 100
[2023-03-31 06:26] LABS: ALBUMIN 2.6 G/DL (3.2-5.2); ALKALINE PHOSPHATASE 177 U/L (46-116); ALT/SGPT 28 U/L (7.0-40); AST/SGOT 58 U/L (<34); BILIRUBIN,TOTAL 0.7 MG/DL (0.3-1.2); BLOOD UREA NITROGEN < 5 MG/DL (9-23); CALCIUM LEVEL 7.5 MG/DL (8.5-10.1); CARBON DIOXIDE LEVEL 25 MMOL/L (20-31); CHLORIDE LEVEL 109 MMOL/L (98-107); GLOMERULAR FILTRATION RATE > 60.0 (>60); GLUCOSE, FASTING 82 MG/DL (60-100); POTASSIUM SERUM 3.6 MMOL/L (3.5-5.1); SODIUM LEVEL 141 MMOL/L (136-145)
[2023-03-31] MEDS: oxyCODONE 5MG TAB PO PRN (06:30)
[2023-03-31] MEDS: SUCRALFATE 1 GM TAB PO SCH ×3 (07:59→17:18)
[2023-03-31] MEDS: CREON-24 CAPSULE PO SCH ×3 (07:59→17:18)
[2023-03-31] MEDS: PANTOPRAZOLE 40MG TAB (PROTONIX) PO SCH (08:00)
[2023-03-31] MEDS: MULTIVITAMINS/MINERALS THERAP 1 TAB PO SCH (08:00)
[2023-03-31] MEDS: LACTULOSE 20GM/30ML SYRUP UDC PO SCH (08:00)
[2023-03-31] MEDS: FOLIC ACID 1MG TAB PO SCH (08:00)
[2023-03-31] MEDS: PREGABALIN 75 MG CAP(LYRICA) PO SCH ×2 (08:00→21:33)
[2023-03-31] MEDS: THIAMINE 100 MG TAB PO SCH (08:00)
[2023-03-31 08:44] LABS: LIPASE 112 U/L (12-53)
[2023-03-31 08:46] LABS: AMYLASE 120 U/L (30-118)
[2023-03-31] MEDS: METOCLOPRAMIDE INJ 10MG/2ML VIAL IV SCH ×4 (08:56→21:33)
[2023-03-31] MEDS: KETOROLAC 30 MG/ML 1ML VIAL IV SCH ×3 (08:56→21:33)
[2023-03-31] MEDS: NS 0.45% 1,000 ML IV SCH (08:57)
[2023-03-31] MEDS: oxyCODONE 5MG TAB PO SCH ×2 (11:54→17:18)
[2023-03-31 14:30] VITALS: BP 92/64; TEMP 98.8; O2SAT 96
[2023-03-31] MEDS ORDERED: NS 1,000 ML IV ONE (14:40)
[2023-03-31] MEDS ORDERED: MIDODRINE 5 MG TAB PO ONE (15:00)
[2023-03-31 15:53] VITALS: BP 128/82
[2023-03-31 17:18] VITALS: BP 117/83
[2023-03-31 21:35] VITALS: BP 115/83; TEMP 97.5; O2SAT 98
[2023-04-01] MEDS: oxyCODONE 5MG TAB PO SCH ×3 (00:15→12:28)
[2023-04-01 02:00] VITALS: BP 110/69; TEMP 98.2; O2SAT 97
[2023-04-01] MEDS: ONDANSETRON 4MG 2ML VIAL IV PRN (03:20)
[2023-04-01] MEDS: KETOROLAC 30 MG/ML 1ML VIAL IV SCH ×3 (03:21→15:00)
[2023-04-01] MEDS: NS 0.45% 1,000 ML IV SCH ×2 (05:20→11:00)
[2023-04-01 05:30] VITALS: BP 112/80; TEMP 98.6; O2SAT 95
[2023-04-01 05:53] LABS: HEMATOCRIT 28.7 % (36.0-47.0); HEMOGLOBIN 8.9 g/dl (12.0-15.5); MEAN CORPUSCULAR HEMOGLOBIN 26.7 pg (27.0-33.0); MEAN CORPUSCULAR VOLUME 86.2 fl (80.0-96.0); PLATELET COUNT, AUTOMATED 148 10^3/uL (150-450); RED BLOOD COUNT 3.33 10^6/uL (4.00-5.40); WHITE BLOOD COUNT 5.4 10^3/uL (4.0-10.0)
[2023-04-01 06:12] LABS: LIPASE 106 U/L (12-53)
[2023-04-01 06:17] LABS: ALBUMIN 2.4 G/DL (3.2-5.2); ALKALINE PHOSPHATASE 166 U/L (46-116); ALT/SGPT 28 U/L (7.0-40); AST/SGOT 63 U/L (<34); BILIRUBIN,TOTAL 0.7 MG/DL (0.3-1.2); BLOOD UREA NITROGEN < 5 MG/DL (9-23); CALCIUM LEVEL 7.5 MG/DL (8.5-10.1); CARBON DIOXIDE LEVEL 26 MMOL/L (20-31); CHLORIDE LEVEL 107 MMOL/L (98-107); CREATININE FOR GFR 0.52 MG/DL (0.55-1.30); GLOMERULAR FILTRATION RATE > 60.0 (>60); GLUCOSE, FASTING 97 MG/DL (60-100); POTASSIUM SERUM 3.4 MMOL/L (3.5-5.1); SODIUM LEVEL 139 MMOL/L (136-145); TOTAL PROTEIN 5.7 G/DL (5.7-8.2)
[2023-04-01] MEDS: LACTULOSE 20GM/30ML SYRUP UDC PO SCH (07:56)
[2023-04-01] MEDS: PANTOPRAZOLE 40MG TAB (PROTONIX) PO SCH (07:56)
[2023-04-01] MEDS: PREGABALIN 75 MG CAP(LYRICA) PO SCH (07:56)
[2023-04-01] MEDS: SUCRALFATE 1 GM TAB PO SCH ×2 (07:56→12:27)
[2023-04-01] MEDS: MULTIVITAMINS/MINERALS THERAP 1 TAB PO SCH (07:56)
[2023-04-01] MEDS: CREON-24 CAPSULE PO SCH ×2 (07:57→12:27)
[2023-04-01] MEDS: METOCLOPRAMIDE INJ 10MG/2ML VIAL IV SCH ×2 (07:57→12:00)
[2023-04-01] MEDS: FOLIC ACID 1MG TAB PO SCH (07:57)
[2023-04-01] MEDS ORDERED: OXYC-517 PO (08:53)
[2023-04-01] MEDS ORDERED: LYRI75CA PO (08:53)
[2023-04-01] MEDS ORDERED: SENN-52 PO (08:53)
[2023-04-01] MEDS ORDERED: POTASSIUM CHLORIDE 10MEQ SR TABLET PO ONE (09:00)
[2023-04-01] MEDS ORDERED: OXYC-1 PO (09:07)
== END 2023-04-01 15:12 | disposition home or self-care (01) | DRG 439 ==
LOC: EDBD 04:56 → M ED 04:56 → M ED INP 11:31 → M MSPAV 18:14 → OBSVTOIN 03-31 10:39
PROVIDERS: ADMIT Family Medicine; ATTEND General Practice
DX: K86.0 Alcohol-induced chronic pancreatitis (principal); K76.6 Portal hypertension; F10.20 Alcohol dependence, uncomplicated; F17.200 Nicotine dependence, unspecified, uncomplicated; K70.30 Alcoholic cirrhosis of liver without ascites; G89.29 Other chronic pain; F31.9 Bipolar disorder, unspecified; K80.20 Calculus of gallbladder without cholecystitis without obstruction; K59.00 Constipation, unspecified; R59.1 Generalized enlarged lymph nodes; Z20.822 Contact with and (suspected) exposure to COVID-19; Z91.041 Radiographic dye allergy status

== ENCOUNTER 2023-04-08 21:07 | Emergency (ER) | payer OTHER ==
[~2023-04-08] VITALS: Ht 162.6 cm; Wt 63.6 kg
[~2023-04-08 21:07] MED LIST changes: +LYRI75CA PO; +OXYC-1 PO; +SENN-52 PO
[2023-04-08 23:32] LABS: BASO # 0.1 10^3/uL (0.0-0.2); EOS # 0.3 10^3/uL (0.0-0.5); EOS % 3.4 % (0.0-3.0); HEMATOCRIT 33.5 % (36.0-47.0); HEMOGLOBIN 10.9 g/dl (12.0-15.5); LYMPH # 2.1 10^3/uL (1.5-5.0); LYMPH % 23.3 % (24.0-44.0); MEAN CORPUSCULAR HEMOGLOBIN 26.5 pg (27.0-33.0); MEAN CORPUSCULAR HGB CONC 32.5 g/dl (32.0-36.5); MEAN CORPUSCULAR VOLUME 81.3 fl (80.0-96.0); MONO # 0.7 10^3/uL (0.0-0.8); MONO % 7.2 % (2.0-8.0); NEUTROPHILS # 5.9 10^3/uL (1.5-8.5); NEUTROPHILS % 64.9 % (36.0-66.0); PLATELET COUNT, AUTOMATED 197 10^3/uL (150-450); RED BLOOD COUNT 4.12 10^6/uL (4.00-5.40); WHITE BLOOD COUNT 9.1 10^3/uL (4.0-10.0)
[2023-04-08] MEDS: ONDANSETRON 4MG 2ML VIAL IV ONE (23:32)
[2023-04-08 23:59] LABS: ALKALINE PHOSPHATASE 175 U/L (46-116); ALT/SGPT 32 U/L (7.0-40); AST/SGOT 94 U/L (<34); BILIRUBIN,DIRECT 0.4 MG/DL (<0.4); BILIRUBIN,TOTAL 0.9 MG/DL (0.3-1.2); BLOOD UREA NITROGEN < 5 MG/DL (9-23); CALCIUM LEVEL 8.3 MG/DL (8.5-10.1); CARBON DIOXIDE LEVEL 25 MMOL/L (20-31); CHLORIDE LEVEL 106 MMOL/L (98-107); CREATININE FOR GFR 0.45 MG/DL (0.55-1.30); GLOMERULAR FILTRATION RATE > 60.0 (>60); GLUCOSE, FASTING 95 MG/DL (60-100); LIPASE 122 U/L (12-53); POTASSIUM SERUM 4.1 MMOL/L (3.5-5.1); SODIUM LEVEL 142 MMOL/L (136-145); TOTAL PROTEIN 6.8 G/DL (5.7-8.2)
[2023-04-09 00:09] LABS: HCG, SERUM QUALITATIVE NEGATIVE (NEGATIVE)
[2023-04-09] MEDS: NS 1,000 ML IV ONE (00:57)
[2023-04-09] MEDS: KETOROLAC 30 MG/ML 1ML VIAL IV ONE (00:58)
[2023-04-09] MEDS ORDERED: ONDA4TAB6 PO (02:00)
[2023-04-09 02:04] VITALS: BP 136/62; TEMP 97
[2023-04-09 02:05] VITALS: O2SAT 99
[2023-04-09] MEDS: MORPHINE 2 MG/ML 1ML VIAL IV ONE (02:05)
[2023-04-09] MEDS: METOCLOPRAMIDE INJ 10MG/2ML VIAL IV ONE (02:06)
== END 2023-04-09 02:36 | disposition home or self-care (01) ==
LOC: EDBD 21:07 → M ED 21:07
DX: K86.1 Other chronic pancreatitis (principal); N20.0 Calculus of kidney; K27.9 Peptic ulcer, site unspecified, unspecified as acute or chronic, without hemorrhage or perforation; K74.60 Unspecified cirrhosis of liver; Z91.041 Radiographic dye allergy status; Z79.899 Other long term (current) drug therapy
CPT/HCPCS: 74176; 76705; 80048; 80076; 83690; 84703; 85025; 96361; 96374; 96375; 99284; J1885; J2405; J2765

== ENCOUNTER 2023-04-12 17:31 | Emergency (ER) | payer OTHER ==
[~2023-04-12] VITALS: Ht 162.6 cm; Wt 63.6 kg
[2023-04-12] MEDS: NS 1,000 ML IV ONE ×2 (18:11→21:44)
[2023-04-12] MEDS: PANTOPRAZOLE 40MG VIAL IV ONE (18:24)
[2023-04-12] MEDS: THIAMINE 200MG 2ML VIAL IM ONE (18:24)
[2023-04-12] MEDS: LORazepam 2 MG TAB PO PRN (18:25)
[2023-04-12 18:38] LABS: BASO # 0.2 10^3/uL (0.0-0.2); BASO % 1.6 % (0.0-1.0); EOS # 0.6 10^3/uL (0.0-0.5); EOS % 4.3 % (0.0-3.0); HEMATOCRIT 36.7 % (36.0-47.0); HEMOGLOBIN 11.7 g/dl (12.0-15.5); LYMPH # 4.7 10^3/uL (1.5-5.0); MEAN CORPUSCULAR HEMOGLOBIN 26.1 pg (27.0-33.0); MEAN CORPUSCULAR HGB CONC 31.9 g/dl (32.0-36.5); MEAN CORPUSCULAR VOLUME 81.7 fl (80.0-96.0); MONO # 0.5 10^3/uL (0.0-0.8); MONO % 3.9 % (2.0-8.0); NEUTROPHILS % 53.7 % (36.0-66.0); PLATELET COUNT, AUTOMATED 291 10^3/uL (150-450); RED BLOOD COUNT 4.49 10^6/uL (4.00-5.40); WHITE BLOOD COUNT 13.1 10^3/uL (4.0-10.0)
[2023-04-12 18:47] LABS: LIPASE 133 U/L (12-53)
[2023-04-12 18:48] LABS: ALBUMIN 2.9 G/DL (3.2-5.2); ALKALINE PHOSPHATASE 238 U/L (46-116); ALT/SGPT 39 U/L (7.0-40); AST/SGOT 114 U/L (<34); BILIRUBIN,DIRECT 0.5 MG/DL (<0.4); BLOOD UREA NITROGEN 7 MG/DL (9-23); CALCIUM LEVEL 7.9 MG/DL (8.5-10.1); CARBON DIOXIDE LEVEL 27 MMOL/L (20-31); CHLORIDE LEVEL 109 MMOL/L (98-107); CREATININE FOR GFR 0.56 MG/DL (0.55-1.30); GLOMERULAR FILTRATION RATE > 60.0 (>60); GLUCOSE, FASTING 95 MG/DL (60-100); INR 1.68; POTASSIUM SERUM 3.2 MMOL/L (3.5-5.1); PROTHROMBIN TIME 19.2 SECONDS (12.5-14.5); SALICYLATE LEVEL < 3.0 MG/DL (<30); SODIUM LEVEL 147 MMOL/L (136-145); TOTAL PROTEIN 6.8 G/DL (5.7-8.2)
[2023-04-12 18:49] LABS: PARTIAL THROMBOPLASTIN TIME 38.2 SECONDS (24.8-34.2)
[2023-04-12 18:52] LABS: HCG, SERUM QUALITATIVE NEGATIVE (NEGATIVE)
[2023-04-12 19:04] LABS: ETHYL ALCOHOL (ETHANOL) 0.444 % (0.000-0.010)
[2023-04-12] MEDS: SUCRALFATE SUSP 1GM/10ML UD PO ONE (19:45)
[2023-04-12] MEDS: METOCLOPRAMIDE INJ 10MG/2ML VIAL IV ONE (19:45)
[2023-04-12] MEDS: POTASSIUM CHLORIDE 10MEQ SR TABLET PO ONE (19:45)
[2023-04-12] MEDS: KETOROLAC 30 MG/ML 1ML VIAL IV ONE (19:46)
[2023-04-13] MEDS: ONDANSETRON 4MG 2ML VIAL IV ONE (02:26)
[2023-04-13] MEDS: MORPHINE 4 MG/ML 1ML VIAL IV ONE (02:26)
[2023-04-13] MEDS: oxyCODONE 10 MG CR TAB PO ONE (06:01)
[2023-04-13] MEDS: ONDANSETRON 4MG ORAL DISINTEGRATING TAB PO ONE (07:50)
[2023-04-13] MEDS: THIAMINE 100 MG TAB PO SCH (09:00)
[2023-04-13] MEDS: FOLIC ACID 1MG TAB PO SCH (11:17)
[2023-04-13] MEDS: MULTIVITAMINS/MINERALS THERAP 1 TAB PO SCH (11:17)
[2023-04-13] MEDS: ACETAMINOPHEN TAB 650MG DOSE (2X325MG) PO ONE (11:29)
[2023-04-13 12:34] VITALS: BP 102/59; TEMP 98.1; O2SAT 96
[2023-04-13 15:25] LABS: RSV AMPLIFICATION NEGATIVE (NEGATIVE)
== END 2023-04-13 12:36 | disposition home or self-care (01) ==
LOC: M ED 17:31 → EDBD 17:31 → M ED 04-13 12:36
DX: F10.129 Alcohol abuse with intoxication, unspecified (principal); K85.90 Acute pancreatitis without necrosis or infection, unspecified; K76.0 Fatty (change of) liver, not elsewhere classified; I10 Essential (primary) hypertension; K70.30 Alcoholic cirrhosis of liver without ascites; F31.9 Bipolar disorder, unspecified; F17.200 Nicotine dependence, unspecified, uncomplicated; Z79.899 Other long term (current) drug therapy; Z88.8 Allergy status to other drugs, medicaments and biological substances; Z91.041 Radiographic dye allergy status
CPT/HCPCS: 74176; 80048; 80076; 80143; 82077; 83690; 83930; 84703; 85025; 85610; 85730; 87631; 87635; 93005; 96372; 96374; 96375; 99285; C9113; J1885; J2405; J2765; J3411

== ENCOUNTER 2023-04-15 19:16 | Emergency (ER) | payer OTHER ==
[~2023-04-15] VITALS: Ht 162.6 cm; Wt 63.6 kg
[2023-04-15 22:17] LABS: BASO # 0.1 10^3/uL (0.0-0.2); BASO % 0.7 % (0.0-1.0); EOS # 0.6 10^3/uL (0.0-0.5); EOS % 4.7 % (0.0-3.0); HEMATOCRIT 33.5 % (36.0-47.0); HEMOGLOBIN 11.2 g/dl (12.0-15.5); LYMPH # 2.2 10^3/uL (1.5-5.0); LYMPH % 17.8 % (24.0-44.0); MEAN CORPUSCULAR HEMOGLOBIN 26.6 pg (27.0-33.0); MEAN CORPUSCULAR HGB CONC 33.4 g/dl (32.0-36.5); MEAN CORPUSCULAR VOLUME 79.6 fl (80.0-96.0); MONO # 0.6 10^3/uL (0.0-0.8); MONO % 5.1 % (2.0-8.0); NEUTROPHILS # 8.9 10^3/uL (1.5-8.5); NEUTROPHILS % 71.4 % (36.0-66.0); PLATELET COUNT, AUTOMATED 241 10^3/uL (150-450); RED BLOOD COUNT 4.21 10^6/uL (4.00-5.40); WHITE BLOOD COUNT 12.5 10^3/uL (4.0-10.0)
[2023-04-15 22:35] LABS: LIPASE 83 U/L (12-53)
[2023-04-15 22:36] LABS: ETHYL ALCOHOL (ETHANOL) 0.005 % (0.000-0.010)
[2023-04-15 22:38] LABS: ALKALINE PHOSPHATASE 291 U/L (46-116); ALT/SGPT 40 U/L (7.0-40); AST/SGOT 108 U/L (<34); BILIRUBIN,DIRECT 0.8 MG/DL (<0.4); BILIRUBIN,TOTAL 2.1 MG/DL (0.3-1.2); BLOOD UREA NITROGEN 6 MG/DL (9-23); CALCIUM LEVEL 8.9 MG/DL (8.5-10.1); CARBON DIOXIDE LEVEL 26 MMOL/L (20-31); CHLORIDE LEVEL 101 MMOL/L (98-107); CREATININE FOR GFR 0.51 MG/DL (0.55-1.30); GLOMERULAR FILTRATION RATE > 60.0 (>60); GLUCOSE, FASTING 140 MG/DL (60-100); POTASSIUM SERUM 3.8 MMOL/L (3.5-5.1); SODIUM LEVEL 134 MMOL/L (136-145); TOTAL PROTEIN 7.2 G/DL (5.7-8.2)
[2023-04-15 23:00] LABS: HCG, SERUM QUALITATIVE NEGATIVE (NEGATIVE)
[2023-04-16] MEDS ORDERED: SUCR1TA PO (02:19)
[2023-04-16] MEDS: KETOROLAC 30 MG/ML 1ML VIAL IV ONE (02:19)
[2023-04-16] MEDS ORDERED: PANT-23 PO (02:19)
[2023-04-16] MEDS: PANTOPRAZOLE 40MG VIAL IV ONE (02:19)
[2023-04-16 03:30] VITALS: BP 117/77; TEMP 98.2
[2023-04-16 03:45] VITALS: O2SAT 99
== END 2023-04-16 03:56 | disposition home or self-care (01) ==
LOC: M ED 19:16
DX: K29.20 Alcoholic gastritis without bleeding (principal); K86.1 Other chronic pancreatitis; Z91.041 Radiographic dye allergy status; Z88.8 Allergy status to other drugs, medicaments and biological substances; R00.2 Palpitations; F31.9 Bipolar disorder, unspecified; Z79.899 Other long term (current) drug therapy
CPT/HCPCS: 74176; 80048; 80076; 81001; 82077; 83690; 84703; 85025; 96374; 96375; 99284; C9113; J1885

== ENCOUNTER 2023-06-06 06:11 | Inpatient (IN) | payer OTHER ==
[~2023-06-06] VITALS: Ht 162.6 cm; Wt 60.5 kg
[2023-06-06] VITALS (9 sets, daily range): BP systolic 102–120; BP diastolic 55–89; TEMP 98.4–99.4; O2SAT 94–97
[~2023-06-06 06:11] MED LIST changes: +PANT-23 PO
[2023-06-06 07:14] LABS: HEMATOCRIT 30.1 % (36.0-47.0); HEMOGLOBIN 9.3 g/dl (12.0-15.5); LIPASE 154 U/L (12-53); MEAN CORPUSCULAR HEMOGLOBIN 24.5 pg (27.0-33.0); MEAN CORPUSCULAR HGB CONC 30.9 g/dl (32.0-36.5); MEAN CORPUSCULAR VOLUME 79.2 fl (80.0-96.0); PLATELET COUNT, AUTOMATED 185 10^3/uL (150-450); WHITE BLOOD COUNT 5.5 10^3/uL (4.0-10.0)
[2023-06-06 07:15] LABS: BASO # 0.1 10^3/uL (0.0-0.2); BASO % 0.9 % (0.0-1.0); EOS # 0.2 10^3/uL (0.0-0.5); EOS % 4.2 % (0.0-3.0); LYMPH # 1.4 10^3/uL (1.5-5.0); LYMPH % 26.4 % (24.0-44.0); MONO # 0.4 10^3/uL (0.0-0.8); MONO % 6.4 % (2.0-8.0); NEUTROPHILS # 3.4 10^3/uL (1.5-8.5); NEUTROPHILS % 61.9 % (36.0-66.0)
[2023-06-06 07:17] LABS: ALBUMIN 3.5 G/DL (3.2-5.2); ALKALINE PHOSPHATASE 185 U/L (46-116); ALT/SGPT 60 U/L (7.0-40); AST/SGOT 138 U/L (<34); BILIRUBIN,DIRECT 0.3 MG/DL (<0.4); BILIRUBIN,TOTAL 0.6 MG/DL (0.3-1.2); BLOOD UREA NITROGEN 6 MG/DL (9-23); CALCIUM LEVEL 8.6 MG/DL (8.5-10.1); CARBON DIOXIDE LEVEL 28 MMOL/L (20-31); CHLORIDE LEVEL 104 MMOL/L (98-107); CREATININE FOR GFR 0.46 MG/DL (0.55-1.30); GLOMERULAR FILTRATION RATE > 60.0 (>60); GLUCOSE, FASTING 101 MG/DL (60-100); POTASSIUM SERUM 3.4 MMOL/L (3.5-5.1); SODIUM LEVEL 141 MMOL/L (136-145); TOTAL PROTEIN 6.9 G/DL (5.7-8.2)
[2023-06-06 07:18] LABS: HCG, SERUM QUALITATIVE NEGATIVE (NEGATIVE)
[2023-06-06 07:36] LABS: ETHYL ALCOHOL (ETHANOL) 0.348 % (0.000-0.010)
[2023-06-06] MEDS ORDERED: MORPHINE 4 MG/ML 1ML VIAL IV ONE (07:45)
[2023-06-06] MEDS ORDERED: LORazepam 2 MG TAB PO PRN ×2 (07:45→13:20)
[2023-06-06] MEDS: THIAMINE 200MG 2ML VIAL IV ONE (08:06)
[2023-06-06] MEDS: NS 1,000 ML IV ONE (08:06)
[2023-06-06] MEDS: fentaNYL 100 MCG/2 ML INJECTION IV PRN ×2 (08:40→22:35)
[2023-06-06] MEDS: MORPHINE 4 MG/ML 1ML VIAL IV ONE (09:30)
[2023-06-06] MEDS: PANTOPRAZOLE 40MG VIAL IV ONE (10:52)
[2023-06-06] MEDS: KETOROLAC 30 MG/ML 1ML VIAL IV ONE (10:52)
[2023-06-06] MEDS: NS 770 ML in IV 1 EA IV ONE (10:52)
[2023-06-06] MEDS: ONDANSETRON 4MG 2ML VIAL IV ONE (11:38)
[2023-06-06] MEDS: cefTRIAXone SOD 1 GM in D5W MINI-BAG PLUS 50 ML IV ONE (11:38)
[2023-06-06 13:17] LABS: HEMATOCRIT 26.3 % (36.0-47.0); HEMOGLOBIN 8.1 g/dl (12.0-15.5)
[2023-06-06] MEDS ORDERED: MED REC CURRENTLY UNOBTAINABLE XX SCH (14:20)
[2023-06-06] MEDS: MULTIVITAMIN -ADULT INJECTION 10 ML, THIAMINE INJection 100 MG, FOLIC ACID 1 MG in NS 1... IV ONE (15:04)
[2023-06-06] MEDS: HYDROMORPHONE HCL 0.5 MG/ 0.5 ML SYRINGE IV ONE (15:40)
[2023-06-06] MEDS: oxyCODONE 5MG TAB PO PRN (19:45)
[2023-06-06] MEDS ORDERED: LACTULOSE 20GM/30ML SYRUP UDC PO PRN (19:45)
[2023-06-06] MEDS ORDERED: KCL 20MEQ IN 100ML SWI (KRUN) 20 MEQ in IV 1 EA IV SCH (20:00)
[2023-06-06] MEDS ORDERED: KCL 10MEQ/100ML SWI (KRUN) 10 MEQ in IV 1 EA IV SCH (20:00)
[2023-06-06] MEDS: PREGABALIN 75 MG CAP(LYRICA) PO SCH (20:36)
[2023-06-06] MEDS: POTASSIUM CHLORIDE 10MEQ SR TABLET PO ONE ×2 (20:36→23:25)
[2023-06-06] MEDS: SENNA 8.6 MG TAB (SENOKOT) PO SCH (20:36)
[2023-06-07] VITALS (9 sets, daily range): BP systolic 112–131; BP diastolic 56–81; TEMP 98.3–98.8; O2SAT 94–97
[2023-06-07] MEDS: ONDANSETRON 4MG 2ML VIAL IV PRN (00:21)
[2023-06-07 04:37] LABS: BASO % 0.8 % (0.0-1.0); EOS # 0.2 10^3/uL (0.0-0.5); EOS % 3.5 % (0.0-3.0); HEMATOCRIT 27.8 % (36.0-47.0); HEMOGLOBIN 8.8 g/dl (12.0-15.5); LYMPH # 1.8 10^3/uL (1.5-5.0); LYMPH % 37.1 % (24.0-44.0); MEAN CORPUSCULAR HEMOGLOBIN 24.8 pg (27.0-33.0); MEAN CORPUSCULAR HGB CONC 31.7 g/dl (32.0-36.5); MEAN CORPUSCULAR VOLUME 78.3 fl (80.0-96.0); MONO # 0.3 10^3/uL (0.0-0.8); MONO % 7.1 % (2.0-8.0); NEUTROPHILS # 2.5 10^3/uL (1.5-8.5); NEUTROPHILS % 51.3 % (36.0-66.0); PLATELET COUNT, AUTOMATED 130 10^3/uL (150-450); RED BLOOD COUNT 3.55 10^6/uL (4.00-5.40); WHITE BLOOD COUNT 4.8 10^3/uL (4.0-10.0)
[2023-06-07 05:14] LABS: ALBUMIN 3.5 G/DL (3.2-5.2); ALKALINE PHOSPHATASE 163 U/L (46-116); ALT/SGPT 51 U/L (7.0-40); AST/SGOT 92 U/L (<34); BILIRUBIN,TOTAL 1.1 MG/DL (0.3-1.2); BLOOD UREA NITROGEN 5 MG/DL (9-23); CALCIUM LEVEL 8.5 MG/DL (8.5-10.1); CARBON DIOXIDE LEVEL 27 MMOL/L (20-31); CHLORIDE LEVEL 99 MMOL/L (98-107); CREATININE FOR GFR 0.41 MG/DL (0.55-1.30); GLOMERULAR FILTRATION RATE > 60.0 (>60); GLUCOSE, FASTING 69 MG/DL (60-100); MAGNESIUM LEVEL 1.2 MG/DL (1.8-2.4); PHOSPHORUS LEVEL 2.4 MG/DL (2.5-4.9); SODIUM LEVEL 133 MMOL/L (136-145); TOTAL PROTEIN 6.7 G/DL (5.7-8.2)
[2023-06-07] MEDS: MAG SULF 1GM/100ML (MAG RUN) 1 GM in IV 1 EA IV SCH (05:43)
[2023-06-07] MEDS: MULTIVITAMINS/MINERALS THERAP 1 TAB PO SCH (07:58)
[2023-06-07] MEDS: FOLIC ACID 1MG TAB PO SCH (07:59)
[2023-06-07] MEDS: SUCRALFATE 1 GM TAB PO SCH (07:59)
[2023-06-07] MEDS ORDERED: CREON-24 CAPSULE PO SCH (08:00)
[2023-06-07] MEDS: ENOXAPARIN 40MG/0.4ML SYRINGE (J1650 PER 10MG) SC SCH (08:06)
[2023-06-07] MEDS ORDERED: oxyCODONE 5MG TAB PO PRN (08:55)
[2023-06-07] MEDS ORDERED: CVS1CHW13 PO (09:54)
[2023-06-07] MEDS ORDERED: PREG75CA3 PO (09:54)
[2023-06-07] MEDS ORDERED: HOME MED LIST COMPLETE! XX SCH (10:00)
[2023-06-07] MEDS ORDERED: PANTOPRAZOLE 40MG VIAL IV SCH (10:00)
== END 2023-06-07 10:53 | disposition left against medical advice (07) | DRG 439 ==
LOC: EDBD 06:11 → M ED 06:11 → M ED INP 13:13 → M ICU 14:44
PROVIDERS: ADMIT Internal Medicine Pulmonary Disease; ATTEND Internal Medicine Pulmonary Disease
DX: K85.90 Acute pancreatitis without necrosis or infection, unspecified (principal); K76.6 Portal hypertension; I85.10 Secondary esophageal varices without bleeding; D68.9 Coagulation defect, unspecified; I95.9 Hypotension, unspecified; F10.220 Alcohol dependence with intoxication, uncomplicated; F31.9 Bipolar disorder, unspecified; F17.210 Nicotine dependence, cigarettes, uncomplicated; K74.60 Unspecified cirrhosis of liver; D64.9 Anemia, unspecified; E87.6 Hypokalemia; E83.42 Hypomagnesemia; Z79.899 Other long term (current) drug therapy; Z88.3 Allergy status to other anti-infective agents; Z88.8 Allergy status to other drugs, medicaments and biological substances

== ENCOUNTER 2023-06-10 06:28 | Emergency (ER) | payer OTHER ==
[~2023-06-10] VITALS: Ht 162.6 cm; Wt 63.6 kg
[~2023-06-10 06:28] MED LIST changes: +CVS1CHW13 PO; +PREG75CA3 PO
[2023-06-10] MEDS: KETOROLAC 30 MG/ML 1ML VIAL IV ONE (11:41)
[2023-06-10] MEDS: ONDANSETRON 4MG 2ML VIAL IV ONE (11:41)
[2023-06-10] MEDS: NS 1,000 ML IV ONE (11:43)
[2023-06-10 12:12] LABS: BASO # 0.1 10^3/uL (0.0-0.2); BASO % 1.4 % (0.0-1.0); EOS % 0.5 % (0.0-3.0); HEMATOCRIT 31.4 % (36.0-47.0); HEMOGLOBIN 9.8 g/dl (12.0-15.5); LYMPH # 2.3 10^3/uL (1.5-5.0); LYMPH % 35.7 % (24.0-44.0); MEAN CORPUSCULAR HGB CONC 31.2 g/dl (32.0-36.5); MEAN CORPUSCULAR VOLUME 80.1 fl (80.0-96.0); MONO # 0.4 10^3/uL (0.0-0.8); MONO % 6.8 % (2.0-8.0); NEUTROPHILS # 3.5 10^3/uL (1.5-8.5); NEUTROPHILS % 55.4 % (36.0-66.0); PLATELET COUNT, AUTOMATED 189 10^3/uL (150-450); RED BLOOD COUNT 3.92 10^6/uL (4.00-5.40); WHITE BLOOD COUNT 6.3 10^3/uL (4.0-10.0)
[2023-06-10] MEDS ORDERED: B-12100021 PO (12:32)
[2023-06-10] MEDS ORDERED: HOME MED LIST COMPLETE! XX SCH (12:35)
[2023-06-10 12:38] LABS: LIPASE 105 U/L (12-53)
[2023-06-10 12:40] LABS: ALBUMIN 3.6 G/DL (3.2-5.2); ALKALINE PHOSPHATASE 193 U/L (46-116); ALT/SGPT 70 U/L (7.0-40); AST/SGOT 162 U/L (<34); BILIRUBIN,DIRECT 0.5 MG/DL (<0.4); BILIRUBIN,TOTAL 1.1 MG/DL (0.3-1.2); BLOOD UREA NITROGEN 11 MG/DL (9-23); CALCIUM LEVEL 8.7 MG/DL (8.5-10.1); CARBON DIOXIDE LEVEL 24 MMOL/L (20-31); CHLORIDE LEVEL 103 MMOL/L (98-107); CREATININE FOR GFR 0.36 MG/DL (0.55-1.30); GLOMERULAR FILTRATION RATE > 60.0 (>60); GLUCOSE, FASTING 73 MG/DL (60-100); POTASSIUM SERUM 4.4 MMOL/L (3.5-5.1); SODIUM LEVEL 139 MMOL/L (136-145); TOTAL PROTEIN 7.4 G/DL (5.7-8.2)
[2023-06-10] MEDS ORDERED: TRAM50TA2 PO (13:07)
[2023-06-10 13:40] VITALS: BP 109/62; TEMP 98.4; O2SAT 95
== END 2023-06-10 13:34 | disposition home or self-care (01) ==
LOC: EDBD 06:28 → M ED 06:28
DX: K29.20 Alcoholic gastritis without bleeding (principal); K86.0 Alcohol-induced chronic pancreatitis; I51.9 Heart disease, unspecified; D64.9 Anemia, unspecified; Z87.891 Personal history of nicotine dependence
CPT/HCPCS: 80048; 80076; 83690; 85025; 96361; 96374; 96375; 99284; J1885; J2405

== ENCOUNTER 2023-06-14 00:11 | Inpatient (IN) | payer OTHER ==
[~2023-06-14] VITALS: Ht 162.6 cm; Wt 71.1 kg
[~2023-06-14 00:11] MED LIST changes: +B-12100021 PO
[2023-06-14 01:34] LABS: BASO % 0.2 % (0.0-1.0); HEMATOCRIT 31.8 % (36.0-47.0); HEMOGLOBIN 10.1 g/dl (12.0-15.5); LYMPH # 0.6 10^3/uL (1.5-5.0); LYMPH % 6.8 % (24.0-44.0); MEAN CORPUSCULAR HEMOGLOBIN 24.8 pg (27.0-33.0); MEAN CORPUSCULAR HGB CONC 31.8 g/dl (32.0-36.5); MEAN CORPUSCULAR VOLUME 77.9 fl (80.0-96.0); MONO # 0.6 10^3/uL (0.0-0.8); MONO % 6.4 % (2.0-8.0); NEUTROPHILS # 7.9 10^3/uL (1.5-8.5); NEUTROPHILS % 86.2 % (36.0-66.0); RED BLOOD COUNT 4.08 10^6/uL (4.00-5.40); WHITE BLOOD COUNT 9.1 10^3/uL (4.0-10.0)
[2023-06-14 02:00] LABS: PLATELET COUNT, AUTOMATED 84 10^3/uL (150-450)
[2023-06-14 02:07] LABS: ALKALINE PHOSPHATASE 167 U/L (46-116); ALT/SGPT 64 U/L (7.0-40); AST/SGOT 99 U/L (<34); BILIRUBIN,TOTAL 2.1 MG/DL (0.3-1.2); BLOOD UREA NITROGEN 7 MG/DL (9-23); CALCIUM LEVEL 8.8 MG/DL (8.5-10.1); CARBON DIOXIDE LEVEL 23 MMOL/L (20-31); CHLORIDE LEVEL 93 MMOL/L (98-107); GLOMERULAR FILTRATION RATE > 60.0 (>60); GLUCOSE, FASTING 126 MG/DL (60-100); POTASSIUM SERUM 3.1 MMOL/L (3.5-5.1); SODIUM LEVEL 132 MMOL/L (136-145); TOTAL PROTEIN 7.1 G/DL (5.7-8.2)
[2023-06-14 02:17] LABS: LIPASE 1639 U/L (12-53)
[2023-06-14 02:19] LABS: ALBUMIN 3.1 G/DL (3.2-5.2)
[2023-06-14 02:37] LABS: ETHYL ALCOHOL (ETHANOL) 0.004 % (0.000-0.010)
[2023-06-14] MEDS: NS 1,000 ML IV ONE ×2 (05:34→05:35)
[2023-06-14] MEDS: ONDANSETRON 4MG 2ML VIAL IV ONE (05:35)
[2023-06-14] MEDS: MORPHINE 4 MG/ML 1ML VIAL IV ONE (05:35)
[2023-06-14] MEDS: POTASSIUM CHLORIDE 10% LIQ 20MEQ/15ML UDC PO ONE ×2 (05:36→12:31)
[2023-06-14] MEDS: LORazepam 2 MG TAB PO PRN ×2 (08:33→13:19)
[2023-06-14] MEDS ORDERED: ONDANSETRON 4MG 2ML VIAL IV PRN (08:50)
[2023-06-14] MEDS ORDERED: TRAM50TA2 PO (09:17)
[2023-06-14] MEDS ORDERED: HOME MED LIST COMPLETE! XX SCH (09:20)
[2023-06-14 09:36] LABS: INR 1.55; PROTHROMBIN TIME 18.1 SECONDS (12.5-14.5)
[2023-06-14] MEDS: THIAMINE 100 MG TAB PO SCH (09:45)
[2023-06-14] MEDS: FOLIC ACID 1MG TAB PO SCH (09:45)
[2023-06-14] MEDS: MULTIVITAMINS/MINERALS THERAP 1 TAB PO SCH (09:45)
[2023-06-14] MEDS: PANTOPRAZOLE 40MG VIAL IV SCH (09:45)
[2023-06-14] MEDS: LR 1,000 ML IV SCH (09:45)
[2023-06-14] MEDS: KCL 10MEQ/100ML SWI (KRUN) 10 MEQ in IV 1 EA IV SCH (09:46)
[2023-06-14] MEDS: HYDROMORPHONE HCL 0.5 MG/ 0.5 ML SYRINGE IV PRN ×2 (10:34→18:26)
[2023-06-14] MEDS: cefTRIAXone SOD 1 GM in D5W MINI-BAG PLUS 50 ML IV SCH (10:35)
[2023-06-14] MEDS: OCTREOTIDE ACETATE 100MCG/ML VIAL **IV ADMINISTRATION ONLY IV ONE (11:12)
[2023-06-14] MEDS: OCTREOTIDE ACETATE 1,200 MCG in NS 238.8 ML IV SCH (11:12)
[2023-06-14 16:50] VITALS: BP 121/74; TEMP 100; O2SAT 97
[2023-06-14 16:51] VITALS: BP 121/74
[2023-06-14] MEDS: MAG SULF 1GM/100ML (MAG RUN) 1 GM in IV 1 EA IV SCH (18:25)
[2023-06-14 19:53] VITALS: BP 112/76; TEMP 100.3; O2SAT 95
[2023-06-14 20:00] VITALS: BP 112/76
[2023-06-14] MEDS: PREGABALIN 75 MG CAP(LYRICA) PO SCH (21:42)
[2023-06-14 23:47] VITALS: BP 107/69; TEMP 98.3; O2SAT 95
[2023-06-15] VITALS (9 sets, daily range): BP systolic 99–127; BP diastolic 64–90; TEMP 97.4–99.7; O2SAT 94–96
[2023-06-15 05:36] LABS: HEMATOCRIT 28.7 % (36.0-47.0); MEAN CORPUSCULAR HEMOGLOBIN 24.7 pg (27.0-33.0); MEAN CORPUSCULAR HGB CONC 31.4 g/dl (32.0-36.5); MEAN CORPUSCULAR VOLUME 78.8 fl (80.0-96.0); RED BLOOD COUNT 3.64 10^6/uL (4.00-5.40); WHITE BLOOD COUNT 9.9 10^3/uL (4.0-10.0)
[2023-06-15 05:45] LABS: PLATELET COUNT, AUTOMATED 91 10^3/uL (150-450)
[2023-06-15 06:36] LABS: ALBUMIN 2.5 G/DL (3.2-5.2); ALKALINE PHOSPHATASE 109 U/L (46-116); ALT/SGPT 32 U/L (7.0-40); AST/SGOT 30 U/L (<34); BILIRUBIN,TOTAL 1.4 MG/DL (0.3-1.2); BLOOD UREA NITROGEN < 5 MG/DL (9-23); CALCIUM LEVEL 7.5 MG/DL (8.5-10.1); CARBON DIOXIDE LEVEL 28 MMOL/L (20-31); CHLORIDE LEVEL 99 MMOL/L (98-107); CREATININE FOR GFR 0.39 MG/DL (0.55-1.30); GLOMERULAR FILTRATION RATE > 60.0 (>60); GLUCOSE, FASTING 120 MG/DL (60-100); MAGNESIUM LEVEL 1.7 MG/DL (1.8-2.4); POTASSIUM SERUM 3.2 MMOL/L (3.5-5.1); SODIUM LEVEL 134 MMOL/L (136-145); TOTAL PROTEIN 5.2 G/DL (5.7-8.2)
[2023-06-15 12:56] LABS: ASCITES FL COLOR YELLOW (COLORLESS); SOURCE, BODY FLUID ASCITES
[2023-06-15 12:57] LABS: APPEARANCE, BODY FLUID HAZY (CLEAR)
[2023-06-15 13:20] LABS: SOURCE, BODY FLUID ALBUMIN ASCITES
[2023-06-15 13:25] LABS: SOURCE, BODY FLUID GLUCOSE ASCITES
[2023-06-15 13:28] LABS: SOURCE, BODY FLUID TOT PROTEIN ASCITES
[2023-06-15] MEDS: MAG SULF 1GM/100ML (MAG RUN) 1 GM in IV 1 EA IV SCH (13:50)
[2023-06-15] MEDS: MORPHINE 2 MG/ML 1ML VIAL IV PRN (13:52)
[2023-06-15] MEDS ORDERED: KCL 10MEQ/100ML SWI (KRUN) 10 MEQ in IV 1 EA IV SCH (14:00)
[2023-06-15] MEDS: KCL 10MEQ/100ML SWI (KRUN) 10 MEQ in IV 1 EA IV SCH (16:00)
[2023-06-15] MEDS: PERCOCET 5MG/325MG TAB PO PRN (16:52)
[2023-06-15] MEDS: POTASSIUM CHLORIDE 10% LIQ 20MEQ/15ML UDC PO ONE (17:38)
[2023-06-15] MEDS: cefTRIAXone SOD 1 GM in D5W MINI-BAG PLUS 50 ML IV ONE (17:41)
[2023-06-15] MEDS: LORazepam 2 MG/ML 1ML VIAL IV STA (22:04)
[2023-06-16] VITALS (10 sets, daily range): BP systolic 96–132; BP diastolic 54–86; TEMP 98–101.8; O2SAT 94–96
[2023-06-16 06:23] LABS: BASO % 0.6 % (0.0-1.0); EOS # 0.2 10^3/uL (0.0-0.5); EOS % 2.5 % (0.0-3.0); HEMATOCRIT 24.8 % (36.0-47.0); HEMOGLOBIN 7.6 g/dl (12.0-15.5); LYMPH # 1.7 10^3/uL (1.5-5.0); LYMPH % 23.7 % (24.0-44.0); MEAN CORPUSCULAR HEMOGLOBIN 24.6 pg (27.0-33.0); MEAN CORPUSCULAR HGB CONC 30.6 g/dl (32.0-36.5); MEAN CORPUSCULAR VOLUME 80.3 fl (80.0-96.0); MONO # 0.9 10^3/uL (0.0-0.8); NEUTROPHILS # 4.3 10^3/uL (1.5-8.5); NEUTROPHILS % 61.1 % (36.0-66.0); RED BLOOD COUNT 3.09 10^6/uL (4.00-5.40); WHITE BLOOD COUNT 7.1 10^3/uL (4.0-10.0)
[2023-06-16 06:49] LABS: LIPASE 144 U/L (12-53)
[2023-06-16 06:52] LABS: ALBUMIN 2.3 G/DL (3.2-5.2); ALKALINE PHOSPHATASE 95 U/L (46-116); ALT/SGPT 25 U/L (7.0-40); AST/SGOT 20 U/L (<34); BILIRUBIN,TOTAL 1.4 MG/DL (0.3-1.2); BLOOD UREA NITROGEN < 5 MG/DL (9-23); CALCIUM LEVEL 7.5 MG/DL (8.5-10.1); CARBON DIOXIDE LEVEL 28 MMOL/L (20-31); CHLORIDE LEVEL 101 MMOL/L (98-107); CREATININE FOR GFR 0.42 MG/DL (0.55-1.30); GLOMERULAR FILTRATION RATE > 60.0 (>60); GLUCOSE, FASTING 117 MG/DL (60-100); POTASSIUM SERUM 3.1 MMOL/L (3.5-5.1); SODIUM LEVEL 134 MMOL/L (136-145); TOTAL PROTEIN 4.9 G/DL (5.7-8.2)
[2023-06-16 06:56] LABS: PLATELET COUNT, AUTOMATED 89 10^3/uL (150-450)
[2023-06-16] MEDS: POTASSIUM CHLORIDE 10MEQ SR TABLET PO ONE (08:20)
[2023-06-16] MEDS: cefTRIAXone SOD 2 GM in D5W MINI-BAG PLUS 50 ML IV SCH (10:19)
[2023-06-16 11:05] LABS: MAGNESIUM LEVEL 1.5 MG/DL (1.8-2.4)
[2023-06-16] MEDS: KCL 40MEQ in NS 1000ML 1,000 ML IV SCH (11:09)
[2023-06-16] MEDS: POTASSIUM CHLORIDE 10% LIQ 20MEQ/15ML UDC PO ONE (11:09)
[2023-06-16] MEDS: MAG SULF 1GM/100ML (MAG RUN) 1 GM in IV 1 EA IV SCH (13:07)
[2023-06-16] MEDS: MORPHINE 2 MG/ML 1ML VIAL IV PRN (14:36)
[2023-06-16] MEDS ORDERED: ACETAMINOPHEN TAB 650MG DOSE (2X325MG) PO PRN (17:10)
[2023-06-17] VITALS (14 sets, daily range): BP systolic 98–111; BP diastolic 54–97; TEMP 97.8–99.5; O2SAT 91–98
[2023-06-17 06:59] LABS: BASO # 0.1 10^3/uL (0.0-0.2); BASO % 1.1 % (0.0-1.0); EOS # 0.1 10^3/uL (0.0-0.5); EOS % 2.7 % (0.0-3.0); HEMATOCRIT 23.6 % (36.0-47.0); HEMOGLOBIN 7.3 g/dl (12.0-15.5); LYMPH # 1.5 10^3/uL (1.5-5.0); LYMPH % 32.8 % (24.0-44.0); MEAN CORPUSCULAR HGB CONC 30.9 g/dl (32.0-36.5); MEAN CORPUSCULAR VOLUME 80.8 fl (80.0-96.0); MONO # 0.7 10^3/uL (0.0-0.8); MONO % 14.6 % (2.0-8.0); NEUTROPHILS # 2.2 10^3/uL (1.5-8.5); NEUTROPHILS % 48.1 % (36.0-66.0); RED BLOOD COUNT 2.92 10^6/uL (4.00-5.40); WHITE BLOOD COUNT 4.5 10^3/uL (4.0-10.0)
[2023-06-17 07:06] LABS: PLATELET COUNT, AUTOMATED 98 10^3/uL (150-450)
[2023-06-17 07:31] LABS: ALBUMIN 2.2 G/DL (3.2-5.2); ALKALINE PHOSPHATASE 116 U/L (46-116); ALT/SGPT 33 U/L (7.0-40); AST/SGOT 53 U/L (<34); BLOOD UREA NITROGEN < 5 MG/DL (9-23); CALCIUM LEVEL 7.6 MG/DL (8.5-10.1); CARBON DIOXIDE LEVEL 25 MMOL/L (20-31); CHLORIDE LEVEL 105 MMOL/L (98-107); CREATININE FOR GFR 0.43 MG/DL (0.55-1.30); GLOMERULAR FILTRATION RATE > 60.0 (>60); GLUCOSE, FASTING 118 MG/DL (60-100); MAGNESIUM LEVEL 1.5 MG/DL (1.8-2.4); POTASSIUM SERUM 4.1 MMOL/L (3.5-5.1); SODIUM LEVEL 135 MMOL/L (136-145); TOTAL PROTEIN 4.8 G/DL (5.7-8.2)
[2023-06-17] MEDS: MAG SULF 1GM/100ML (MAG RUN) 1 GM in IV 1 EA IV SCH (12:16)
[2023-06-17] MEDS: KCL 20MEQ in NS 1000ML 1,000 ML IV SCH (12:16)
[2023-06-17] MEDS: CREON-24 CAPSULE PO SCH (17:09)
[2023-06-17] MEDS: MAGNESIUM OXIDE 400MG TAB (MAG-OX) PO SCH (20:11)
[2023-06-18] VITALS: BP 109/68; TEMP 99; O2SAT 97
[2023-06-18 03:54] LABS: BASO # 0.1 10^3/uL (0.0-0.2); BASO % 1.2 % (0.0-1.0); EOS # 0.2 10^3/uL (0.0-0.5); EOS % 4.1 % (0.0-3.0); HEMATOCRIT 27.6 % (36.0-47.0); HEMOGLOBIN 8.5 g/dl (12.0-15.5); LYMPH # 1.1 10^3/uL (1.5-5.0); LYMPH % 27.8 % (24.0-44.0); MEAN CORPUSCULAR HGB CONC 30.8 g/dl (32.0-36.5); MEAN CORPUSCULAR VOLUME 81.2 fl (80.0-96.0); MONO # 0.7 10^3/uL (0.0-0.8); MONO % 17.1 % (2.0-8.0); NEUTROPHILS % 49.3 % (36.0-66.0); PLATELET COUNT, AUTOMATED 116 10^3/uL (150-450); WHITE BLOOD COUNT 4.1 10^3/uL (4.0-10.0)
[2023-06-18 04:00] VITALS: BP 102/55; TEMP 98.6; O2SAT 95
[2023-06-18 04:24] LABS: BLOOD UREA NITROGEN < 5 MG/DL (9-23); CALCIUM LEVEL 7.9 MG/DL (8.5-10.1); CARBON DIOXIDE LEVEL 23 MMOL/L (20-31); CHLORIDE LEVEL 104 MMOL/L (98-107); CREATININE FOR GFR 0.45 MG/DL (0.55-1.30); GLOMERULAR FILTRATION RATE > 60.0 (>60); GLUCOSE, FASTING 104 MG/DL (60-100); MAGNESIUM LEVEL 1.5 MG/DL (1.8-2.4); POTASSIUM SERUM 3.9 MMOL/L (3.5-5.1); SODIUM LEVEL 133 MMOL/L (136-145)
[2023-06-18 08:08] VITALS: BP 125/77; TEMP 98.2; O2SAT 97
[2023-06-18] MEDS: MAG SULF 1GM/100ML (MAG RUN) 1 GM in IV 1 EA IV SCH (08:31)
[2023-06-18] MEDS ORDERED: CIPR-249 PO (11:04)
[2023-06-18] MEDS ORDERED: FOLI1TAB11 PO (11:04)
[2023-06-18] MEDS ORDERED: OXYC1TAB23 PO (11:04)
[2023-06-18] MEDS ORDERED: MAGN400C2 PO (11:04)
[2023-06-18] MEDS ORDERED: CONS10SO3 PO (11:04)
[2023-06-18] MEDS ORDERED: THIA100TA PO (11:04)
== END 2023-06-18 13:54 | disposition home or self-care (01) | DRG 438 ==
LOC: EDBD 00:11 → M ED 00:11 → M ED INP 08:50 → M PCU 16:42
PROVIDERS: ADMIT Internal Medicine; ATTEND Internal Medicine
PROC: 0W9G3ZX Drainage of Peritoneal Cavity, Percutaneous Approach, Diagnostic (ICD-10-PCS; principal; 2023-06-15 11:00)
DX: K85.20 Alcohol induced acute pancreatitis without necrosis or infection (principal); K65.2 Spontaneous bacterial peritonitis; I85.10 Secondary esophageal varices without bleeding; F10.20 Alcohol dependence, uncomplicated; K70.31 Alcoholic cirrhosis of liver with ascites; G89.4 Chronic pain syndrome; F41.9 Anxiety disorder, unspecified; D69.6 Thrombocytopenia, unspecified; Z79.899 Other long term (current) drug therapy; Z88.8 Allergy status to other drugs, medicaments and biological substances; Z91.041 Radiographic dye allergy status; Z91.198 Patient's noncompliance with other medical treatment and regimen for other reason

== ENCOUNTER → 2023-07-12 | Outpatient (CLI) | payer OTHER ==
[~2023-07-12] MED LIST changes: +OXYC1TAB23 PO
[2023-07-12 17:25] LABS: BASO # 0.1 10^3/uL (0.0-0.2); BASO % 0.9 % (0.0-1.0); EOS # 0.2 10^3/uL (0.0-0.5); EOS % 3.1 % (0.0-3.0); HEMATOCRIT 33.2 % (36.0-47.0); HEMOGLOBIN 10.5 g/dl (12.0-15.5); LYMPH # 2.3 10^3/uL (1.5-5.0); MEAN CORPUSCULAR HEMOGLOBIN 25.5 pg (27.0-33.0); MEAN CORPUSCULAR HGB CONC 31.6 g/dl (32.0-36.5); MEAN CORPUSCULAR VOLUME 80.6 fl (80.0-96.0); MONO # 0.6 10^3/uL (0.0-0.8); MONO % 7.8 % (2.0-8.0); NEUTROPHILS # 4.5 10^3/uL (1.5-8.5); NEUTROPHILS % 57.9 % (36.0-66.0); PLATELET COUNT, AUTOMATED 192 10^3/uL (150-450); RED BLOOD COUNT 4.12 10^6/uL (4.00-5.40); WHITE BLOOD COUNT 7.7 10^3/uL (4.0-10.0)
[2023-07-12 17:39] LABS: INR 1.32
[2023-07-12 17:44] LABS: HEMOGLOBIN A1c 4.5 % (4.0-6.0)
[2023-07-12 17:49] LABS: AMYLASE 532 U/L (30-118); IRON (FE) 33 UG/DL (50-170); PERCENT SATURATION 8.4 % (13.2-45.0); TOTAL IRON BINDING CAPACITY 395 UG/DL (250-425)
[2023-07-12 17:50] LABS: ALBUMIN 3.1 G/DL (3.2-5.2); ALKALINE PHOSPHATASE 143 U/L (46-116); ALT/SGPT 42 U/L (7.0-40); AST/SGOT 64 U/L (<34); BLOOD UREA NITROGEN 7 MG/DL (9-23); CALCIUM LEVEL 8.7 MG/DL (8.5-10.1); CARBON DIOXIDE LEVEL 26 MMOL/L (20-31); CHLORIDE LEVEL 104 MMOL/L (98-107); CHOLESTEROL LEVEL 177 MG/DL (<200); CHOLESTEROL RISK RATIO 3.56 (<5); CREATININE FOR GFR 0.49 MG/DL (0.55-1.30); GLOMERULAR FILTRATION RATE > 60.0 (>60); GLUCOSE, FASTING 101 MG/DL (60-100); HDL CHOLESTEROL 49.7 MG/DL (>40); LDL CHOLESTEROL 117.9 MG/DL (<100); MAGNESIUM LEVEL 1.7 MG/DL (1.8-2.4); NON-HDL-C 127.3 MG/DL; POTASSIUM SERUM 3.1 MMOL/L (3.5-5.1); SODIUM LEVEL 137 MMOL/L (136-145); TRIGLYCERIDES LEVEL 47 MG/DL (<150)
[2023-07-12 17:51] LABS: FOLATE > 24.00 NG/ML (>5.4); THYROID STIMULATING HORMONE 1.655 uIU/ML (0.55-4.78); TOTAL 25(OH) VITAMIN D 28.4 NG/ML (20.0-100.0)
[2023-07-12 17:52] LABS: FREE T4 0.87 NG/DL (0.89-1.76); VITAMIN B12 LEVEL 800 PG/ML (211-911)
== END ==
LOC: M LAB 16:50
PROVIDERS: ATTEND Nurse Practitioner Family
DX: E55.9 Vitamin D deficiency, unspecified (principal); K86.1 Other chronic pancreatitis; K74.60 Unspecified cirrhosis of liver; F10.10 Alcohol abuse, uncomplicated; Z13.220 Encounter for screening for lipoid disorders; Z13.1 Encounter for screening for diabetes mellitus

== ENCOUNTER 2023-08-11 07:20 | Inpatient (IN) | payer OTHER ==
[~2023-08-11] VITALS: Ht 162.6 cm; Wt 65.6 kg
[~2023-08-11 07:20] MED LIST changes: +ONDA-282 PO; -ONDA4TAB6 PO
[2023-08-11 08:12] LABS: BASO # 0.1 10^3/uL (0.0-0.2); BASO % 1.2 % (0.0-1.0); EOS # 0.2 10^3/uL (0.0-0.5); EOS % 2.3 % (0.0-3.0); HEMATOCRIT 34.2 % (36.0-47.0); LYMPH # 3.6 10^3/uL (1.5-5.0); LYMPH % 36.1 % (24.0-44.0); MEAN CORPUSCULAR HEMOGLOBIN 24.8 pg (27.0-33.0); MEAN CORPUSCULAR HGB CONC 32.2 g/dl (32.0-36.5); MEAN CORPUSCULAR VOLUME 77.2 fl (80.0-96.0); MONO # 0.8 10^3/uL (0.0-0.8); NEUTROPHILS # 5.2 10^3/uL (1.5-8.5); PLATELET COUNT, AUTOMATED 335 10^3/uL (150-450); RED BLOOD COUNT 4.43 10^6/uL (4.00-5.40)
[2023-08-11 08:31] LABS: AMPHETAMINES LEVEL URINE NEGATIVE (NEGATIVE); CANNABINOIDS URINE NEGATIVE (NEGATIVE); METHADONE URINE NEGATIVE (NEGATIVE); OPIATES URINE NEGATIVE (NEGATIVE); PHENCYCLIDINE URINE NEGATIVE (NEGATIVE)
[2023-08-11 08:32] LABS: BARBITURATES URINE NEGATIVE (NEGATIVE); BENZODIAZEPINES URINE NEGATIVE (NEGATIVE); COCAINE METABOLITE URINE NEGATIVE (NEGATIVE)
[2023-08-11 08:33] LABS: HCG, SERUM QUANTITATIVE < 2.6 MIU/ML (<4.2); LIPASE 155 U/L (12-53)
[2023-08-11 08:34] LABS: AMYLASE 322 U/L (30-118)
[2023-08-11 08:35] LABS: ALBUMIN 3.6 G/DL (3.2-5.2); ALKALINE PHOSPHATASE 176 U/L (46-116); ALT/SGPT 39 U/L (7.0-40); AST/SGOT 111 U/L (<34); BILIRUBIN,DIRECT 0.4 MG/DL (<0.4); BILIRUBIN,TOTAL 0.9 MG/DL (0.3-1.2); BLOOD UREA NITROGEN 7 MG/DL (9-23); CALCIUM LEVEL 9.2 MG/DL (8.5-10.1); CARBON DIOXIDE LEVEL 24 MMOL/L (20-31); CHLORIDE LEVEL 101 MMOL/L (98-107); CREATININE FOR GFR 0.42 MG/DL (0.55-1.30); GLOMERULAR FILTRATION RATE > 60.0 (>60); GLUCOSE, FASTING 91 MG/DL (60-100); POTASSIUM SERUM 3.5 MMOL/L (3.5-5.1); SODIUM LEVEL 142 MMOL/L (136-145)
[2023-08-11 08:57] LABS: ETHYL ALCOHOL (ETHANOL) 0.359 % (0.000-0.010)
[2023-08-11] MEDS ORDERED: NS 1,000 ML IV ONE (09:10)
[2023-08-11] MEDS: NS 1,870 ML in IV 1 EA IV ONE (09:31)
[2023-08-11] MEDS: PIPERACILLIN/TAZOBACTAM SOD 4.5 GM in D5W MINI-BAG PLUS 50 ML IV ONE (09:31)
[2023-08-11 09:34] LABS: INR 1.29; PARTIAL THROMBOPLASTIN TIME 32.4 SECONDS (24.8-34.2); PROTHROMBIN TIME 15.7 SECONDS (12.5-14.5)
[2023-08-11] MEDS: ONDANSETRON 4MG 2ML VIAL IV ONE ×2 (09:39→12:05)
[2023-08-11] MEDS: HYDROMORPHONE HCL 0.5 MG/ 0.5 ML SYRINGE IV ONE (09:40)
[2023-08-11] MEDS ORDERED: LORazepam 2 MG/ML 1ML VIAL IV STA (10:01)
[2023-08-11] MEDS ORDERED: MAGN400T2 PO (11:23)
[2023-08-11] MEDS ORDERED: LACT20EL PO (11:23)
[2023-08-11] MEDS ORDERED: PREN1CHW6 PO (11:23)
[2023-08-11] MEDS ORDERED: HOME MED LIST COMPLETE! XX SCH (11:25)
[2023-08-11] MEDS: HYDROMORPHONE HCL 0.5 MG/ 0.5 ML SYRINGE IV PRN (12:05)
[2023-08-11] MEDS ORDERED: LACTULOSE 20GM/30ML SYRUP UDC PO PRN (13:10)
[2023-08-11] MEDS ORDERED: LORazepam 2 MG TAB PO PRN (13:10)
[2023-08-11 14:55] VITALS: BP 115/75; TEMP 97.9; O2SAT 95
[2023-08-11 14:57] VITALS: BP 115/75
[2023-08-11] MEDS: PANTOPRAZOLE 40MG VIAL IV SCH (15:17)
[2023-08-11] MEDS: THIAMINE 100 MG TAB PO SCH (15:17)
[2023-08-11] MEDS: MORPHINE 2 MG/ML 1ML VIAL IV PRN (15:18)
[2023-08-11] MEDS: MULTIVITAMIN -ADULT INJECTION 10 ML, THIAMINE INJection 100 MG, FOLIC ACID 1 MG in NS 1... IV ONE (15:59)
[2023-08-11] MEDS: CIPROFLOXACIN 500MG TABLET PO SCH (15:59)
[2023-08-11] MEDS: CREON-24 CAPSULE PO SCH (18:00)
[2023-08-11 18:07] VITALS: BP 96/50
[2023-08-11] MEDS: KETOROLAC 30 MG/ML 1ML VIAL IV ONE (18:33)
[2023-08-11 19:25] VITALS: BP 101/64; TEMP 97.9; O2SAT 97
[2023-08-11 20:00] VITALS: BP 101/64
[2023-08-11] MEDS: PREGABALIN 50 MG CAP (LYRICA) PO SCH (20:15)
[2023-08-11] MEDS: ONDANSETRON 4MG 2ML VIAL IV PRN (21:03)
[2023-08-11] MEDS: PERCOCET 5MG/325MG TAB PO PRN (21:37)
[2023-08-12] MEDS: LR 1,000 ML IV SCH
[2023-08-12 00:36] VITALS: BP 121/88
[2023-08-12 04:00] VITALS: BP 114/73; TEMP 97.7; O2SAT 97
[2023-08-12 06:04] LABS: MEAN CORPUSCULAR HGB CONC 31.5 g/dl (32.0-36.5); MEAN CORPUSCULAR VOLUME 79.4 fl (80.0-96.0); WHITE BLOOD COUNT 4.8 10^3/uL (4.0-10.0)
[2023-08-12 06:10] LABS: HEMOGLOBIN 8.5 g/dl (12.0-15.5); PLATELET COUNT, AUTOMATED 139 10^3/uL (150-450)
[2023-08-12 07:03] LABS: ALBUMIN 2.9 G/DL (3.2-5.2); ALKALINE PHOSPHATASE 128 U/L (46-116); ALT/SGPT 28 U/L (7.0-40); AST/SGOT 74 U/L (<34); BILIRUBIN,TOTAL 1.2 MG/DL (0.3-1.2); BLOOD UREA NITROGEN < 5 MG/DL (9-23); CALCIUM LEVEL 7.7 MG/DL (8.5-10.1); CARBON DIOXIDE LEVEL 26 MMOL/L (20-31); CHLORIDE LEVEL 98 MMOL/L (98-107); CREATININE FOR GFR 0.42 MG/DL (0.55-1.30); GLOMERULAR FILTRATION RATE > 60.0 (>60); GLUCOSE, FASTING 61 MG/DL (60-100); POTASSIUM SERUM 3.3 MMOL/L (3.5-5.1); SODIUM LEVEL 135 MMOL/L (136-145)
[2023-08-12 08:00] VITALS: BP 110/92
[2023-08-12] MEDS: KCL 10MEQ/100ML SWI (KRUN) 10 MEQ in IV 1 EA IV SCH (08:30)
[2023-08-12] MEDS: MULTIVITAMINS/MINERALS THERAP 1 TAB PO SCH (09:00)
[2023-08-12] MEDS: FOLIC ACID 1MG TAB PO SCH (09:00)
[2023-08-12] MEDS: ENOXAPARIN 40MG/0.4ML SYRINGE (J1650 PER 10MG) SC SCH (09:00)
[2023-08-12 12:00] VITALS: BP 109/64; TEMP 97.9; O2SAT 96
[2023-08-12 20:30] VITALS: BP 110/65
[2023-08-12 20:35] VITALS: BP 110/65; TEMP 97.9; O2SAT 97
[2023-08-13 04:00] VITALS: BP 132/78; TEMP 97.9; O2SAT 98
[2023-08-13 06:32] LABS: BASO % 0.9 % (0.0-1.0); EOS # 0.3 10^3/uL (0.0-0.5); HEMATOCRIT 28.4 % (36.0-47.0); LYMPH # 1.4 10^3/uL (1.5-5.0); LYMPH % 32.8 % (24.0-44.0); MEAN CORPUSCULAR HEMOGLOBIN 24.9 pg (27.0-33.0); MEAN CORPUSCULAR HGB CONC 31.7 g/dl (32.0-36.5); MEAN CORPUSCULAR VOLUME 78.7 fl (80.0-96.0); MONO # 0.3 10^3/uL (0.0-0.8); MONO % 6.7 % (2.0-8.0); NEUTROPHILS # 2.3 10^3/uL (1.5-8.5); NEUTROPHILS % 53.6 % (36.0-66.0); PLATELET COUNT, AUTOMATED 121 10^3/uL (150-450); RED BLOOD COUNT 3.61 10^6/uL (4.00-5.40); WHITE BLOOD COUNT 4.3 10^3/uL (4.0-10.0)
[2023-08-13 07:00] LABS: BLOOD UREA NITROGEN < 5 MG/DL (9-23); CALCIUM LEVEL 8.3 MG/DL (8.5-10.1); CARBON DIOXIDE LEVEL 27 MMOL/L (20-31); CHLORIDE LEVEL 98 MMOL/L (98-107); CREATININE FOR GFR 0.47 MG/DL (0.55-1.30); GLOMERULAR FILTRATION RATE > 60.0 (>60); GLUCOSE, FASTING 66 MG/DL (60-100); PHOSPHORUS LEVEL 2.9 MG/DL (2.5-4.9); POTASSIUM SERUM 3.8 MMOL/L (3.5-5.1); SODIUM LEVEL 136 MMOL/L (136-145)
[2023-08-13] MEDS: MAG SULF 1GM/100ML (MAG RUN) 1 GM in IV 1 EA IV SCH ×2 (09:26→18:07)
[2023-08-13 10:00] VITALS: BP 132/78
[2023-08-13 12:00] VITALS: BP_SYST 130; BP_SYST 132; BP_DIAS 78; TEMP 98.1; O2SAT 92
[2023-08-13 14:00] VITALS: BP 132/78
[2023-08-13] MEDS ORDERED: MORPHINE 2 MG/ML 1ML VIAL IV PRN (14:00)
[2023-08-13 18:00] VITALS: BP 132/78
[2023-08-13 19:50] VITALS: BP 111/64; TEMP 98.2; O2SAT 96
[2023-08-14] VITALS (7 sets, daily range): BP systolic 102–132; BP diastolic 60–78; TEMP 97.9–98; O2SAT 96–97
[2023-08-14] MEDS: RAMELTEON 8 MG TAB (ROZEREM) PO PRN (00:55)
[2023-08-14] MEDS: OXAZEPAM 15MG CAP PO SCH (06:05)
[2023-08-14 06:24] LABS: BASO % 0.6 % (0.0-1.0); EOS # 0.2 10^3/uL (0.0-0.5); EOS % 3.3 % (0.0-3.0); HEMATOCRIT 29.9 % (36.0-47.0); HEMOGLOBIN 9.6 g/dl (12.0-15.5); LYMPH # 1.3 10^3/uL (1.5-5.0); LYMPH % 27.8 % (24.0-44.0); MEAN CORPUSCULAR HEMOGLOBIN 25.5 pg (27.0-33.0); MEAN CORPUSCULAR HGB CONC 32.1 g/dl (32.0-36.5); MEAN CORPUSCULAR VOLUME 79.3 fl (80.0-96.0); MONO # 0.4 10^3/uL (0.0-0.8); MONO % 8.2 % (2.0-8.0); NEUTROPHILS # 2.9 10^3/uL (1.5-8.5); NEUTROPHILS % 59.9 % (36.0-66.0); PLATELET COUNT, AUTOMATED 122 10^3/uL (150-450); RED BLOOD COUNT 3.77 10^6/uL (4.00-5.40); WHITE BLOOD COUNT 4.8 10^3/uL (4.0-10.0)
[2023-08-14 06:53] LABS: BLOOD UREA NITROGEN < 5 MG/DL (9-23); CALCIUM LEVEL 8.6 MG/DL (8.5-10.1); CARBON DIOXIDE LEVEL 26 MMOL/L (20-31); CHLORIDE LEVEL 103 MMOL/L (98-107); CREATININE FOR GFR 0.49 MG/DL (0.55-1.30); GLOMERULAR FILTRATION RATE > 60.0 (>60); GLUCOSE, FASTING 110 MG/DL (60-100); MAGNESIUM LEVEL 1.6 MG/DL (1.8-2.4); POTASSIUM SERUM 3.8 MMOL/L (3.5-5.1); SODIUM LEVEL 137 MMOL/L (136-145)
[2023-08-14] MEDS: MAG SULF 1GM/100ML (MAG RUN) 1 GM in IV 1 EA IV SCH (09:39)
[2023-08-14] MEDS: LACTULOSE 20GM/30ML SYRUP UDC PO SCH (14:54)
[2023-08-14] MEDS: MAGNESIUM OXIDE 400MG TAB (MAG-OX) PO SCH (21:11)
[2023-08-15 05:06] VITALS: BP 110/63; TEMP 98; O2SAT 96
[2023-08-15 05:07] VITALS: BP 110/63
[2023-08-15 06:16] LABS: BASO % 0.9 % (0.0-1.0); EOS # 0.2 10^3/uL (0.0-0.5); EOS % 4.6 % (0.0-3.0); HEMOGLOBIN 8.9 g/dl (12.0-15.5); LYMPH # 1.2 10^3/uL (1.5-5.0); LYMPH % 27.4 % (24.0-44.0); MEAN CORPUSCULAR HEMOGLOBIN 24.9 pg (27.0-33.0); MEAN CORPUSCULAR HGB CONC 30.7 g/dl (32.0-36.5); MONO # 0.3 10^3/uL (0.0-0.8); MONO % 6.5 % (2.0-8.0); NEUTROPHILS # 2.6 10^3/uL (1.5-8.5); NEUTROPHILS % 60.4 % (36.0-66.0); PLATELET COUNT, AUTOMATED 104 10^3/uL (150-450); RED BLOOD COUNT 3.58 10^6/uL (4.00-5.40); WHITE BLOOD COUNT 4.3 10^3/uL (4.0-10.0)
[2023-08-15 06:50] LABS: BLOOD UREA NITROGEN 8 MG/DL (9-23); CALCIUM LEVEL 8.8 MG/DL (8.5-10.1); CARBON DIOXIDE LEVEL 25 MMOL/L (20-31); CHLORIDE LEVEL 108 MMOL/L (98-107); CREATININE FOR GFR 0.48 MG/DL (0.55-1.30); GLOMERULAR FILTRATION RATE > 60.0 (>60); GLUCOSE, FASTING 143 MG/DL (60-100); MAGNESIUM LEVEL 1.3 MG/DL (1.8-2.4); POTASSIUM SERUM 3.8 MMOL/L (3.5-5.1); SODIUM LEVEL 139 MMOL/L (136-145)
[2023-08-15] MEDS: MAG SULF 1GM/100ML (MAG RUN) 1 GM in IV 1 EA IV SCH (10:10)
[2023-08-15 12:00] VITALS: BP 113/75; TEMP 97.7; O2SAT 97
[2023-08-15 20:45] VITALS: BP 101/57; TEMP 97.7; O2SAT 100
[2023-08-15] MEDS: MAGNESIUM OXIDE 400MG TAB (MAG-OX) PO SCH (20:59)
[2023-08-16 05:00] VITALS: BP 109/65; TEMP 97.7; O2SAT 99
[2023-08-16 06:17] LABS: BLOOD UREA NITROGEN 5 MG/DL (9-23); CALCIUM LEVEL 8.7 MG/DL (8.5-10.1); CARBON DIOXIDE LEVEL 24 MMOL/L (20-31); CHLORIDE LEVEL 106 MMOL/L (98-107); CREATININE FOR GFR 0.39 MG/DL (0.55-1.30); GLOMERULAR FILTRATION RATE > 60.0 (>60); GLUCOSE, FASTING 115 MG/DL (60-100); MAGNESIUM LEVEL 1.5 MG/DL (1.8-2.4); POTASSIUM SERUM 3.6 MMOL/L (3.5-5.1); SODIUM LEVEL 138 MMOL/L (136-145)
[2023-08-16 07:34] LABS: BASO % 0.8 % (0.0-1.0); EOS # 0.1 10^3/uL (0.0-0.5); EOS % 2.8 % (0.0-3.0); HEMATOCRIT 28.7 % (36.0-47.0); HEMOGLOBIN 9.4 g/dl (12.0-15.5); LYMPH # 1.3 10^3/uL (1.5-5.0); LYMPH % 32.5 % (24.0-44.0); MEAN CORPUSCULAR HEMOGLOBIN 25.9 pg (27.0-33.0); MEAN CORPUSCULAR HGB CONC 32.8 g/dl (32.0-36.5); MEAN CORPUSCULAR VOLUME 79.1 fl (80.0-96.0); MONO # 0.3 10^3/uL (0.0-0.8); MONO % 8.2 % (2.0-8.0); NEUTROPHILS # 2.2 10^3/uL (1.5-8.5); NEUTROPHILS % 55.4 % (36.0-66.0); RED BLOOD COUNT 3.63 10^6/uL (4.00-5.40); WHITE BLOOD COUNT 3.9 10^3/uL (4.0-10.0)
[2023-08-16 07:47] LABS: PLATELET COUNT, AUTOMATED 91 10^3/uL (150-450)
[2023-08-16] MEDS: MAG SULF 1GM/100ML (MAG RUN) 1 GM in IV 1 EA IV SCH (08:09)
[2023-08-16] MEDS ORDERED: MAGN400T2 PO (10:41)
[2023-08-16] MEDS ORDERED: POTA10CA70 PO (10:41)
[2023-08-16] MEDS ORDERED: PREG50CA PO (10:41)
[2023-08-16] MEDS ORDERED: CIPR500T39 PO (10:41)
== END 2023-08-16 12:17 | disposition home or self-care (01) | DRG 439 ==
LOC: M ED 07:20 → M ED INP 13:08 → M MSPAV 14:52
PROVIDERS: ADMIT Internal Medicine; ATTEND Internal Medicine
DX: K85.20 Alcohol induced acute pancreatitis without necrosis or infection (principal); E87.20 Acidosis, unspecified; F10.288 Alcohol dependence with other alcohol-induced disorder; K76.6 Portal hypertension; K29.20 Alcoholic gastritis without bleeding; K70.30 Alcoholic cirrhosis of liver without ascites; E87.6 Hypokalemia; D64.9 Anemia, unspecified; D69.6 Thrombocytopenia, unspecified; E83.42 Hypomagnesemia; Z91.041 Radiographic dye allergy status; Z79.899 Other long term (current) drug therapy; Z88.8 Allergy status to other drugs, medicaments and biological substances; F10.220 Alcohol dependence with intoxication, uncomplicated

== ENCOUNTER 2023-08-28 17:21 | Emergency (ER) | payer OTHER ==
[~2023-08-28] VITALS: Ht 162.6 cm; Wt 62.7 kg
[~2023-08-28 17:21] MED LIST changes: +CIPR500T39 PO; +MAGN400T2 PO; +POTA10CA70 PO; +PREG50CA PO; +PREN1CHW6 PO
[2023-08-28] MEDS: NS 1,000 ML IV ONE (18:44)
[2023-08-28] MEDS: METOCLOPRAMIDE INJ 10MG/2ML VIAL IV ONE (18:44)
[2023-08-28 18:46] LABS: BASO # 0.1 10^3/uL (0.0-0.2); BASO % 1.8 % (0.0-1.0); EOS # 0.2 10^3/uL (0.0-0.5); EOS % 1.9 % (0.0-3.0); HEMATOCRIT 32.5 % (36.0-47.0); HEMOGLOBIN 10.4 g/dl (12.0-15.5); LYMPH # 2.9 10^3/uL (1.5-5.0); LYMPH % 37.3 % (24.0-44.0); MEAN CORPUSCULAR VOLUME 78.1 fl (80.0-96.0); MONO # 0.5 10^3/uL (0.0-0.8); MONO % 6.9 % (2.0-8.0); NEUTROPHILS % 51.7 % (36.0-66.0); PLATELET COUNT, AUTOMATED 322 10^3/uL (150-450); RED BLOOD COUNT 4.16 10^6/uL (4.00-5.40); WHITE BLOOD COUNT 7.7 10^3/uL (4.0-10.0)
[2023-08-28 19:16] LABS: ALBUMIN 3.5 G/DL (3.2-5.2); BILIRUBIN,DIRECT 0.3 MG/DL (<0.4); BILIRUBIN,TOTAL 0.8 MG/DL (0.3-1.2); TOTAL PROTEIN 8.5 G/DL (5.7-8.2)
[2023-08-28 19:39] LABS: ETHYL ALCOHOL (ETHANOL) 0.427 % (0.000-0.010)
[2023-08-28] MEDS ORDERED: LORazepam 2 MG TAB PO PRN (20:20)
[2023-08-28] MEDS ORDERED: POTA10TA67 PO (20:43)
[2023-08-28] MEDS ORDERED: CIPR500T39 PO (20:43)
[2023-08-28] MEDS ORDERED: PREG50CA3 PO (20:43)
[2023-08-28] MEDS: FOLIC ACID 1MG TAB PO SCH (20:50)
[2023-08-28] MEDS: MULTIVITAMINS/MINERALS THERAP 1 TAB PO SCH (20:50)
[2023-08-28] MEDS: THIAMINE 100 MG TAB PO SCH (20:50)
[2023-08-28] MEDS ORDERED: HOME MED LIST COMPLETE! XX SCH (20:55)
[2023-08-28 21:50] VITALS: BP 102/55; TEMP 98.1; O2SAT 95
[2023-08-29] MEDS ORDERED: FOLIC ACID 1MG TAB PO SCH (09:00)
[2023-08-29] MEDS ORDERED: MULTIVITAMINS/MINERALS THERAP 1 TAB PO SCH (09:00)
== END 2023-08-28 22:49 | disposition home or self-care (01) ==
LOC: M ED 17:21 → EDBD 17:21 → M ED 22:49
DX: F10.129 Alcohol abuse with intoxication, unspecified (principal); K86.0 Alcohol-induced chronic pancreatitis; F17.200 Nicotine dependence, unspecified, uncomplicated; Z79.899 Other long term (current) drug therapy; Z88.8 Allergy status to other drugs, medicaments and biological substances; Z91.041 Radiographic dye allergy status
CPT/HCPCS: 80047; 80076; 82077; 83690; 84702; 85025; 96374; 99284; J2765

== ENCOUNTER 2023-08-29 17:13 | Inpatient (IN) | payer OTHER ==
[~2023-08-29] VITALS: Ht 162.6 cm; Wt 77.9 kg
[~2023-08-29 17:13] MED LIST changes: +POTA10TA67 PO; +PREG50CA3 PO
[2023-08-29 18:37] LABS: BASO # 0.1 10^3/uL (0.0-0.2); BASO % 1.2 % (0.0-1.0); EOS # 0.1 10^3/uL (0.0-0.5); EOS % 1.5 % (0.0-3.0); HEMATOCRIT 32.8 % (36.0-47.0); HEMOGLOBIN 10.3 g/dl (12.0-15.5); LYMPH # 2.4 10^3/uL (1.5-5.0); LYMPH % 26.8 % (24.0-44.0); MEAN CORPUSCULAR HEMOGLOBIN 24.6 pg (27.0-33.0); MEAN CORPUSCULAR HGB CONC 31.4 g/dl (32.0-36.5); MEAN CORPUSCULAR VOLUME 78.5 fl (80.0-96.0); MONO # 0.8 10^3/uL (0.0-0.8); MONO % 9.1 % (2.0-8.0); NEUTROPHILS # 5.5 10^3/uL (1.5-8.5); NEUTROPHILS % 61.1 % (36.0-66.0); PLATELET COUNT, AUTOMATED 319 10^3/uL (150-450); RED BLOOD COUNT 4.18 10^6/uL (4.00-5.40); WHITE BLOOD COUNT 8.9 10^3/uL (4.0-10.0)
[2023-08-29 18:58] LABS: LIPASE 246 U/L (12-53)
[2023-08-29 19:00] LABS: ALBUMIN 3.8 G/DL (3.2-5.2); ALKALINE PHOSPHATASE 168 U/L (46-116); ALT/SGPT 51 U/L (7.0-40); AST/SGOT 118 U/L (<34); BILIRUBIN,DIRECT 0.4 MG/DL (<0.4); BLOOD UREA NITROGEN 7 MG/DL (9-23); CALCIUM LEVEL 9.1 MG/DL (8.5-10.1); CARBON DIOXIDE LEVEL 28 MMOL/L (20-31); CHLORIDE LEVEL 98 MMOL/L (98-107); CREATININE FOR GFR 0.43 MG/DL (0.55-1.30); GLOMERULAR FILTRATION RATE > 60.0 (>60); GLUCOSE, FASTING 100 MG/DL (60-100); POTASSIUM SERUM 3.7 MMOL/L (3.5-5.1); SODIUM LEVEL 138 MMOL/L (136-145); TOTAL PROTEIN 8.7 G/DL (5.7-8.2)
[2023-08-29 20:38] LABS: HCG, SERUM QUALITATIVE NEGATIVE (NEGATIVE)
[2023-08-30] VITALS (13 sets, daily range): BP systolic 131–159; BP diastolic 73–99; TEMP 97.9–98.2; O2SAT 95–97
[2023-08-30] MEDS: NS 1,000 ML IV ONE ×2 (01:45→03:41)
[2023-08-30] MEDS: PANTOPRAZOLE 40MG VIAL IV ONE (01:45)
[2023-08-30] MEDS: MORPHINE 4 MG/ML 1ML VIAL IV ONE (01:55)
[2023-08-30 02:24] LABS: INR 1.4; PROTHROMBIN TIME 16.7 SECONDS (12.5-14.5)
[2023-08-30 02:35] LABS: C REACTIVE PROTEIN QUANTITATIV < 0.40 MG/DL (<1.0); ETHYL ALCOHOL (ETHANOL) 0.109 % (0.000-0.010)
[2023-08-30 03:50] LABS: HEPATITIS B SURFACE ANTIGEN NEGATIVE (NEGATIVE)
[2023-08-30 04:12] LABS: HEPATITIS B CORE ANTIBODY IGM NEGATIVE (NEGATIVE); HEPATITIS C VIRUS ABY INDEX < 0.02 INDEX (<0.8)
[2023-08-30] MEDS ORDERED: MAGN400T35 PO (04:21)
[2023-08-30] MEDS ORDERED: HOME MED LIST COMPLETE! XX SCH (04:25)
[2023-08-30] MEDS ORDERED: KETOROLAC 30 MG/ML 1ML VIAL IV PRN (04:35)
[2023-08-30] MEDS ORDERED: ACETAMINOPHEN TAB 650MG DOSE (2X325MG) PO PRN (04:50)
[2023-08-30] MEDS: MULTIVITAMIN -ADULT INJECTION 10 ML, THIAMINE INJection 100 MG, FOLIC ACID 1 MG in NS 1... IV ONE (04:56)
[2023-08-30] MEDS: NS 1,000 ML IV SCH (04:57)
[2023-08-30] MEDS: MORPHINE 2 MG/ML 1ML VIAL IV PRN (05:04)
[2023-08-30 06:14] LABS: AMYLASE 224 U/L (30-118)
[2023-08-30] MEDS ORDERED: LACTULOSE 20GM/30ML SYRUP UDC PO PRN (07:00)
[2023-08-30] MEDS: CYANOCOBALAMIN 500 MCG TAB PO SCH (07:54)
[2023-08-30] MEDS: MAGNESIUM OXIDE 400MG TAB (MAG-OX) PO SCH (07:55)
[2023-08-30] MEDS: POTASSIUM CHLORIDE 10MEQ SR TABLET PO SCH (07:55)
[2023-08-30] MEDS: PREGABALIN 50 MG CAP (LYRICA) PO SCH (07:55)
[2023-08-30] MEDS: HEPARIN SOD (PORCINE) 5000UNITS/ML 1ML VIAL/SYRINGE SC SCH (08:00)
[2023-08-30] MEDS: LORazepam 2 MG TAB PO PRN (08:05)
[2023-08-30 08:12] LABS: HEMATOCRIT 26.7 % (36.0-47.0); MEAN CORPUSCULAR HEMOGLOBIN 25.1 pg (27.0-33.0); MEAN CORPUSCULAR HGB CONC 31.5 g/dl (32.0-36.5); MEAN CORPUSCULAR VOLUME 79.7 fl (80.0-96.0); RED BLOOD COUNT 3.35 10^6/uL (4.00-5.40); WHITE BLOOD COUNT 4.6 10^3/uL (4.0-10.0)
[2023-08-30 08:13] LABS: ALBUMIN 3.1 G/DL (3.2-5.2); ALKALINE PHOSPHATASE 138 U/L (46-116); ALT/SGPT 40 U/L (7.0-40); AST/SGOT 88 U/L (<34); BILIRUBIN,TOTAL 0.9 MG/DL (0.3-1.2); BLOOD UREA NITROGEN < 5 MG/DL (9-23); CALCIUM LEVEL 7.6 MG/DL (8.5-10.1); CARBON DIOXIDE LEVEL 25 MMOL/L (20-31); CHLORIDE LEVEL 103 MMOL/L (98-107); CREATININE FOR GFR 0.34 MG/DL (0.55-1.30); GLOMERULAR FILTRATION RATE > 60.0 (>60); GLUCOSE, FASTING 78 MG/DL (60-100); POTASSIUM SERUM 3.6 MMOL/L (3.5-5.1); SODIUM LEVEL 137 MMOL/L (136-145); TOTAL PROTEIN 7.3 G/DL (5.7-8.2)
[2023-08-30 08:16] LABS: HEMOGLOBIN 8.4 g/dl (12.0-15.5)
[2023-08-30 08:17] LABS: PLATELET COUNT, AUTOMATED 175 10^3/uL (150-450)
[2023-08-30] MEDS: CREON-24 CAPSULE PO SCH (09:23)
[2023-08-30] MEDS ORDERED: MORPHINE 2 MG/ML 1ML VIAL IV PRN ×2 (10:50→17:00)
[2023-08-30] MEDS: MORPHINE 4 MG/ML 1ML VIAL IV PRN ×2 (13:24→17:34)
[2023-08-30] MEDS: ONDANSETRON 4MG 2ML VIAL IV PRN (17:00)
[2023-08-30] MEDS: PANTOPRAZOLE 40MG TAB (PROTONIX) PO SCH (20:56)
[2023-08-31 04:00] VITALS: BP 137/86; TEMP 97.9; O2SAT 94
[2023-08-31 06:00] VITALS: BP 148/82
[2023-08-31 06:46] LABS: HEMATOCRIT 28.3 % (36.0-47.0); HEMOGLOBIN 8.9 g/dl (12.0-15.5); MEAN CORPUSCULAR HEMOGLOBIN 24.7 pg (27.0-33.0); MEAN CORPUSCULAR HGB CONC 31.4 g/dl (32.0-36.5); MEAN CORPUSCULAR VOLUME 78.6 fl (80.0-96.0); PLATELET COUNT, AUTOMATED 121 10^3/uL (150-450); WHITE BLOOD COUNT 3.9 10^3/uL (4.0-10.0)
[2023-08-31 07:11] LABS: PROCALCITONIN 0.08 ng/ml
[2023-08-31 07:17] LABS: ALBUMIN 3.1 G/DL (3.2-5.2); ALKALINE PHOSPHATASE 139 U/L (46-116); ALT/SGPT 38 U/L (7.0-40); AST/SGOT 85 U/L (<34); BLOOD UREA NITROGEN < 5 MG/DL (9-23); CARBON DIOXIDE LEVEL 27 MMOL/L (20-31); CHLORIDE LEVEL 102 MMOL/L (98-107); CREATININE FOR GFR 0.45 MG/DL (0.55-1.30); GLOMERULAR FILTRATION RATE > 60.0 (>60); GLUCOSE, FASTING 93 MG/DL (60-100); MAGNESIUM LEVEL 1.1 MG/DL (1.8-2.4); POTASSIUM SERUM 3.4 MMOL/L (3.5-5.1); SODIUM LEVEL 136 MMOL/L (136-145); TOTAL PROTEIN 7.1 G/DL (5.7-8.2)
[2023-08-31] MEDS: MAG SULF 1GM/100ML (MAG RUN) 1 GM in IV 1 EA IV SCH (08:54)
[2023-08-31] MEDS: MAGNESIUM OXIDE 400MG TAB (MAG-OX) PO SCH (08:55)
[2023-08-31] MEDS: POTASSIUM CHLORIDE 10MEQ SR TABLET PO ONE ×2 (08:55→11:20)
[2023-08-31 12:00] VITALS: BP 136/85; TEMP 97.7; O2SAT 97
[2023-08-31 16:32] VITALS: O2SAT 96
[2023-08-31 20:00] VITALS: BP 130/88; TEMP 98.1; O2SAT 97
[2023-08-31] MEDS: RAMELTEON 8 MG TAB (ROZEREM) PO PRN (23:13)
[2023-09-01 00:11] VITALS: BP 139/98; TEMP 98.4; O2SAT 96
[2023-09-01 04:20] VITALS: BP 123/84; TEMP 97.5; O2SAT 95
[2023-09-01] MEDS ORDERED: OXYC1TAB23 PO (08:45)
[2023-09-01 12:15] VITALS: BP 116/76; TEMP 97.7; O2SAT 99
== END 2023-09-01 15:50 | disposition home or self-care (01) | DRG 439 ==
LOC: M ED 17:13 → M ED INP 08-30 04:33 → M MSPAV 08-30 05:28
PROVIDERS: ADMIT Family Medicine; ATTEND Internal Medicine
DX: K85.20 Alcohol induced acute pancreatitis without necrosis or infection (principal); K76.6 Portal hypertension; K29.20 Alcoholic gastritis without bleeding; D69.6 Thrombocytopenia, unspecified; D64.9 Anemia, unspecified; F10.229 Alcohol dependence with intoxication, unspecified; K70.31 Alcoholic cirrhosis of liver with ascites; F31.9 Bipolar disorder, unspecified; E83.42 Hypomagnesemia; G89.29 Other chronic pain; M54.9 Dorsalgia, unspecified; Z79.899 Other long term (current) drug therapy; Z88.8 Allergy status to other drugs, medicaments and biological substances; Z91.041 Radiographic dye allergy status

== ENCOUNTER 2023-09-16 03:48 | Emergency (ER) | payer OTHER ==
[~2023-09-16] VITALS: Ht 162.6 cm; Wt 63.6 kg
[2023-09-16 07:13] LABS: BASO # 0.1 10^3/uL (0.0-0.2); BASO % 1.4 % (0.0-1.0); EOS # 0.2 10^3/uL (0.0-0.5); EOS % 1.8 % (0.0-3.0); HEMATOCRIT 30.9 % (36.0-47.0); HEMOGLOBIN 9.6 g/dl (12.0-15.5); LYMPH # 2.7 10^3/uL (1.5-5.0); LYMPH % 29.1 % (24.0-44.0); MEAN CORPUSCULAR HEMOGLOBIN 24.6 pg (27.0-33.0); MEAN CORPUSCULAR HGB CONC 31.1 g/dl (32.0-36.5); MEAN CORPUSCULAR VOLUME 79.2 fl (80.0-96.0); MONO # 0.7 10^3/uL (0.0-0.8); MONO % 7.6 % (2.0-8.0); NEUTROPHILS # 5.5 10^3/uL (1.5-8.5); NEUTROPHILS % 59.9 % (36.0-66.0); PLATELET COUNT, AUTOMATED 258 10^3/uL (150-450); WHITE BLOOD COUNT 9.2 10^3/uL (4.0-10.0)
[2023-09-16] MEDS: ONDANSETRON 4MG 2ML VIAL IV ONE (07:31)
[2023-09-16] MEDS: MORPHINE 2 MG/ML 1ML VIAL IV ONE ×2 (07:31→09:15)
[2023-09-16 07:33] LABS: LIPASE 310 U/L (12-53)
[2023-09-16 07:37] LABS: ALBUMIN 3.2 G/DL (3.2-5.2); ALKALINE PHOSPHATASE 145 U/L (46-116); ALT/SGPT 41 U/L (7.0-40); AST/SGOT 76 U/L (<34); BILIRUBIN,DIRECT 0.4 MG/DL (<0.4); BILIRUBIN,TOTAL 0.9 MG/DL (0.3-1.2); BLOOD UREA NITROGEN 10 MG/DL (9-23); CALCIUM LEVEL 7.9 MG/DL (8.5-10.1); CARBON DIOXIDE LEVEL 26 MMOL/L (20-31); CHLORIDE LEVEL 104 MMOL/L (98-107); GLOMERULAR FILTRATION RATE > 60.0 (>60); GLUCOSE, FASTING 76 MG/DL (60-100); POTASSIUM SERUM 3.6 MMOL/L (3.5-5.1); SODIUM LEVEL 142 MMOL/L (136-145); TOTAL PROTEIN 7.4 G/DL (5.7-8.2)
[2023-09-16] MEDS: MULTIVITAMIN -ADULT INJECTION 10 ML, THIAMINE INJection 100 MG, FOLIC ACID 1 MG in NS 1... IV ONE (07:43)
[2023-09-16] MEDS: NS 1,000 ML IV ONE (07:44)
[2023-09-16] MEDS ORDERED: HOME MED LIST COMPLETE! XX SCH (11:05)
[2023-09-16] MEDS ORDERED: HYDR-3713 PO (13:26)
[2023-09-16 14:00] VITALS: BP 103/57; TEMP 97.2; O2SAT 98
== END 2023-09-16 14:16 | disposition home or self-care (01) ==
LOC: M ED 03:48
DX: K85.90 Acute pancreatitis without necrosis or infection, unspecified (principal); I10 Essential (primary) hypertension; F31.9 Bipolar disorder, unspecified; F10.10 Alcohol abuse, uncomplicated; Z88.8 Allergy status to other drugs, medicaments and biological substances; Z91.041 Radiographic dye allergy status; Z79.1 Long term (current) use of non-steroidal anti-inflammatories (NSAID); Z79.899 Other long term (current) drug therapy; Z79.810 Long term (current) use of selective estrogen receptor modulators (SERMs)
CPT/HCPCS: 70450; 71045; 72125; 74176; 80048; 80076; 83605; 83690; 85025; 96361; 96365; 96366; 96374; 96375; 96376; 99284; J2405; J3411

== ENCOUNTER 2023-09-21 15:57 | Emergency (ER) | payer OTHER ==
[~2023-09-21] VITALS: Ht 162.6 cm; Wt 62.3 kg
[~2023-09-21 15:57] MED LIST changes: +HYDR-3713 PO
[2023-09-21 16:12] VITALS: BP 121/65; TEMP 98.2; O2SAT 98
[2023-09-21 17:21] LABS: BASO # 0.1 10^3/uL (0.0-0.2); BASO % 1.1 % (0.0-1.0); EOS # 0.1 10^3/uL (0.0-0.5); EOS % 1.3 % (0.0-3.0); HEMATOCRIT 32.3 % (36.0-47.0); LYMPH # 1.5 10^3/uL (1.5-5.0); LYMPH % 26.6 % (24.0-44.0); MEAN CORPUSCULAR HEMOGLOBIN 24.7 pg (27.0-33.0); MEAN CORPUSCULAR VOLUME 79.8 fl (80.0-96.0); MONO # 0.2 10^3/uL (0.0-0.8); NEUTROPHILS # 3.7 10^3/uL (1.5-8.5); NEUTROPHILS % 66.6 % (36.0-66.0); PLATELET COUNT, AUTOMATED 132 10^3/uL (150-450); RED BLOOD COUNT 4.05 10^6/uL (4.00-5.40); WHITE BLOOD COUNT 5.5 10^3/uL (4.0-10.0)
[2023-09-21 17:40] LABS: HCG, SERUM QUALITATIVE NEGATIVE (NEGATIVE); LIPASE 178 U/L (12-53)
[2023-09-21 17:42] LABS: ALBUMIN 3.6 G/DL (3.2-5.2); ALKALINE PHOSPHATASE 213 U/L (46-116); ALT/SGPT 75 U/L (7.0-40); AST/SGOT 195 U/L (<34); BILIRUBIN,DIRECT 0.5 MG/DL (<0.4); BILIRUBIN,TOTAL 1.2 MG/DL (0.3-1.2); TOTAL PROTEIN 8.2 G/DL (5.7-8.2)
== END 2023-09-21 19:13 | disposition left against medical advice (07) ==
LOC: EDBD 15:57 → M ED 15:57
DX: Z53.21 Procedure and treatment not carried out due to patient leaving prior to being seen by health care provider (principal)

== ENCOUNTER 2023-10-13 22:36 | Inpatient (IN) | payer OTHER ==
[~2023-10-13] VITALS: Ht 162.6 cm; Wt 67.9 kg
[2023-10-13] MEDS: ONDANSETRON 4MG 2ML VIAL IV ONE (23:09)
[2023-10-13] MEDS: MORPHINE 4 MG/ML 1ML VIAL IV PRN (23:09)
[2023-10-13 23:24] LABS: HEMOGLOBIN 9.4 g/dl (12.0-15.5); MEAN CORPUSCULAR HEMOGLOBIN 23.4 pg (27.0-33.0); MEAN CORPUSCULAR HGB CONC 30.3 g/dl (32.0-36.5); MEAN CORPUSCULAR VOLUME 77.3 fl (80.0-96.0); PLATELET COUNT, AUTOMATED 372 10^3/uL (150-450); RED BLOOD COUNT 4.01 10^6/uL (4.00-5.40); WHITE BLOOD COUNT 8.2 10^3/uL (4.0-10.0)
[2023-10-13 23:31] LABS: LIPASE 122 U/L (12-53)
[2023-10-13 23:32] LABS: INR 1.44; PARTIAL THROMBOPLASTIN TIME 38.5 SECONDS (24.8-34.2)
[2023-10-13 23:33] LABS: ALBUMIN 3.3 G/DL (3.2-5.2); ALKALINE PHOSPHATASE 184 U/L (46-116); ALT/SGPT 41 U/L (7.0-40); AST/SGOT 100 U/L (<34); BILIRUBIN,DIRECT 0.3 MG/DL (<0.4); BILIRUBIN,TOTAL 0.8 MG/DL (0.3-1.2); BLOOD UREA NITROGEN 11 MG/DL (9-23); CALCIUM LEVEL 7.7 MG/DL (8.5-10.1); CARBON DIOXIDE LEVEL 23 MMOL/L (20-31); CHLORIDE LEVEL 109 MMOL/L (98-107); GLOMERULAR FILTRATION RATE > 60.0 (>60); GLUCOSE, FASTING 73 MG/DL (60-100); POTASSIUM SERUM 3.4 MMOL/L (3.5-5.1); SODIUM LEVEL 146 MMOL/L (136-145); TOTAL PROTEIN 7.6 G/DL (5.7-8.2)
[2023-10-13] MEDS: NS 1,000 ML IV ONE (23:44)
[2023-10-13] MEDS: NS 1,910 ML in IV 1 EA IV ONE (23:53)
[2023-10-13 23:55] LABS: AMPHETAMINES LEVEL URINE NEGATIVE (NEGATIVE); BARBITURATES URINE NEGATIVE (NEGATIVE); BENZODIAZEPINES URINE NEGATIVE (NEGATIVE); CANNABINOIDS URINE NEGATIVE (NEGATIVE); COCAINE METABOLITE URINE NEGATIVE (NEGATIVE); METHADONE URINE NEGATIVE (NEGATIVE); OPIATES URINE NEGATIVE (NEGATIVE); PHENCYCLIDINE URINE NEGATIVE (NEGATIVE)
[2023-10-13 23:58] LABS: ETHYL ALCOHOL (ETHANOL) 0.474 % (0.000-0.010)
[2023-10-14] VITALS (8 sets, daily range): BP systolic 92–119; BP diastolic 52–75; TEMP 97.8–98.2; O2SAT 95–97
[2023-10-14 00:14] LABS: ATYPICAL LYMPH 1 % (0-5); BASOPHILS 2 % (0-1); EOSINOPHILS 2 % (0-3); LYMPHOCYTES 19 % (16-44); MONOCYTES 2 % (0-5); NEUTROPHILS 74 % (28-66); PLATELET ESTIMATE NORMAL (NORMAL)
[2023-10-14 00:15] LABS: HYPOCHROMASIA 1+; MICROCYTOSIS 1+
[2023-10-14 00:16] LABS: ANISOCYTOSIS 2+
[2023-10-14] MEDS: HYDROMORPHONE HCL 0.5 MG/ 0.5 ML SYRINGE IV PRN ×3 (00:56→20:10)
[2023-10-14] MEDS: PANTOPRAZOLE 40MG VIAL IV ONE (00:56)
[2023-10-14] MEDS: FAMOTIDINE IV BAG 20 MG in IV 1 EA IV ONE (00:57)
[2023-10-14] MEDS ORDERED: HEPARIN SOD (PORCINE) 5000UNITS/ML 1ML VIAL/SYRINGE SC SCH (02:50)
[2023-10-14] MEDS: NS 1,000 ML IV SCH (02:57)
[2023-10-14 03:36] LABS: PROCALCITONIN <0.04 ng/ml
[2023-10-14] MEDS: ONDANSETRON 4MG 2ML VIAL IV PRN (03:58)
[2023-10-14] MEDS: LR 1,000 ML IV SCH ×2 (04:13→18:41)
[2023-10-14] MEDS ORDERED: GLUCAGON INJ 1MG VIAL SC PRN (07:10)
[2023-10-14] MEDS ORDERED: DEXTROSE 50% 50ML SYRINGE IV PRN (07:10)
[2023-10-14] MEDS ORDERED: GLUCOSE 4 GM CHEW PO PRN (07:10)
[2023-10-14] MEDS ORDERED: INSULIN LISPRO (NovoLOG) PER UNIT SC SCH (07:10)
[2023-10-14] MEDS: THIAMINE 100 MG TAB PO SCH (08:55)
[2023-10-14] MEDS: MULTIVITAMINS/MINERALS THERAP 1 TAB PO SCH (08:55)
[2023-10-14] MEDS: FOLIC ACID 1MG TAB PO SCH (08:55)
[2023-10-14] MEDS: LORazepam 2 MG TAB PO PRN (09:09)
[2023-10-14 10:15] LABS: BASO # 0.1 10^3/uL (0.0-0.2); BASO % 0.9 % (0.0-1.0); EOS # 0.1 10^3/uL (0.0-0.5); EOS % 0.9 % (0.0-3.0); HEMATOCRIT 27.6 % (36.0-47.0); LYMPH # 2.6 10^3/uL (1.5-5.0); LYMPH % 20.3 % (24.0-44.0); MEAN CORPUSCULAR HEMOGLOBIN 23.1 pg (27.0-33.0); MEAN CORPUSCULAR VOLUME 79.8 fl (80.0-96.0); MONO # 0.9 10^3/uL (0.0-0.8); MONO % 7.1 % (2.0-8.0); NEUTROPHILS # 9.1 10^3/uL (1.5-8.5); NEUTROPHILS % 69.9 % (36.0-66.0); PLATELET COUNT, AUTOMATED 293 10^3/uL (150-450); RED BLOOD COUNT 3.46 10^6/uL (4.00-5.40); WHITE BLOOD COUNT 12.9 10^3/uL (4.0-10.0)
[2023-10-14 10:16] LABS: HEMATOCRIT 27.3 % (36.0-47.0); HEMOGLOBIN 7.8 g/dl (12.0-15.5); MEAN CORPUSCULAR HEMOGLOBIN 22.9 pg (27.0-33.0); MEAN CORPUSCULAR HGB CONC 28.6 g/dl (32.0-36.5); MEAN CORPUSCULAR VOLUME 80.3 fl (80.0-96.0); PLATELET COUNT, AUTOMATED 305 10^3/uL (150-450)
[2023-10-14 10:42] LABS: ALKALINE PHOSPHATASE 168 U/L (46-116); ALT/SGPT 39 U/L (7.0-40); AST/SGOT 83 U/L (<34); BILIRUBIN,TOTAL 0.6 MG/DL (0.3-1.2); BLOOD UREA NITROGEN < 5 MG/DL (9-23); CALCIUM LEVEL 6.9 MG/DL (8.5-10.1); CARBON DIOXIDE LEVEL 18 MMOL/L (20-31); CHLORIDE LEVEL 108 MMOL/L (98-107); CHOLESTEROL LEVEL 185 MG/DL (<200); CHOLESTEROL RISK RATIO 3.87 (<5); CREATININE FOR GFR 0.35 MG/DL (0.55-1.30); GLOMERULAR FILTRATION RATE > 60.0 (>60); GLUCOSE, FASTING 66 MG/DL (60-100); HDL CHOLESTEROL 47.8 MG/DL (>40); MAGNESIUM LEVEL 1.3 MG/DL (1.8-2.4); NON-HDL-C 137.2 MG/DL; POTASSIUM SERUM 3.8 MMOL/L (3.5-5.1); SODIUM LEVEL 142 MMOL/L (136-145); TOTAL PROTEIN 7.2 G/DL (5.7-8.2); TRIGLYCERIDES LEVEL 116 MG/DL (<150)
[2023-10-14] MEDS: MOM 30ML SUSPENSION UDC PO SCH (11:07)
[2023-10-14] MEDS: SENOKOT S TAB PO SCH (11:08)
[2023-10-14] MEDS: MIRALAX *UNIT DOSE* 17GM PACKET PO SCH (11:08)
[2023-10-14] MEDS: MAG SULF 1GM/100ML (MAG RUN) 1 GM in IV 1 EA IV SCH (11:08)
[2023-10-14 11:17] LABS: VENOUS BASE EXCESS -6.5 (-2.0-2.0); VENOUS HCO3 19.1 MMOL/L (23.0-27.0); VENOUS O2 SATURATION 99.6 % (60.0-80.0); VENOUS PARTIAL PRESSURE CO2 38.4 mmHg (38.0-50.0); VENOUS PARTIAL PRESSURE O2 259.3 mmHg (30.0-50.0); VENOUS PH 7.315 UNITS (7.330-7.430); VENOUS STANDARD HCO3 19.1 MMOL/L; VENOUS TOTAL CO2 20.3 MMOL/L (24.0-28.0)
[2023-10-14] MEDS: CIPROFLOXACIN 500MG TABLET PO SCH (11:24)
[2023-10-14] MEDS ORDERED: SUCR1TAB56 PO (11:45)
[2023-10-14] MEDS ORDERED: HOME MED LIST COMPLETE! XX SCH (11:50)
[2023-10-14] MEDS: LR 1,000 ML IV ONE (12:20)
[2023-10-14] MEDS: CREON-24 CAPSULE (PANCRELIPASE) PO SCH (12:30)
[2023-10-14] MEDS: ACETAMINOPHEN TAB 650MG DOSE (2X325MG) PO PRN (13:25)
[2023-10-14] MEDS: HYDROMORPHONE HCL 0.5 MG/ 0.5 ML SYRINGE IV ONE (14:38)
[2023-10-14 16:16] LABS: BLOOD UREA NITROGEN < 5 MG/DL (9-23); CALCIUM LEVEL 7.1 MG/DL (8.5-10.1); CARBON DIOXIDE LEVEL 25 MMOL/L (20-31); CHLORIDE LEVEL 106 MMOL/L (98-107); CREATININE FOR GFR 0.35 MG/DL (0.55-1.30); GLOMERULAR FILTRATION RATE > 60.0 (>60); GLUCOSE, FASTING 80 MG/DL (60-100); MAGNESIUM LEVEL 1.9 MG/DL (1.8-2.4); POTASSIUM SERUM 4.1 MMOL/L (3.5-5.1); SODIUM LEVEL 137 MMOL/L (136-145)
[2023-10-14] MEDS: LACTULOSE 20GM/30ML SYRUP UDC PO SCH (17:07)
[2023-10-14 21:33] LABS: VENOUS BASE EXCESS 2.8 (-2.0-2.0); VENOUS HCO3 26.9 MMOL/L (23.0-27.0); VENOUS O2 SATURATION 99.5 % (60.0-80.0); VENOUS PARTIAL PRESSURE CO2 38.9 mmHg (38.0-50.0); VENOUS PARTIAL PRESSURE O2 224.7 mmHg (30.0-50.0); VENOUS PH 7.457 UNITS (7.330-7.430); VENOUS TOTAL CO2 28.1 MMOL/L (24.0-28.0)
[2023-10-14 23:25] LABS: APPEARANCE, URINE HAZY (CLEAR); BACTERIA, URINE AUTO 1+ (NEGATIVE); BILIRUBIN, URINE AUTO NEGATIVE (NEGATIVE); BLOOD, URINE BLOOD 3+ (NEGATIVE); COLOR, URINE RED (YELLOW); GLUCOSE, URINE (UA) AUTO NEGATIVE (NEGATIVE); KETONE, URINE AUTO NEGATIVE (NEGATIVE); LEUKOCYTE ESTERASE, URINE AUTO NEGATIVE (NEGATIVE); MUCUS, URINE SMALL (NEGATIVE); NITRITE, URINE AUTO NEGATIVE (NEGATIVE); PROTEIN, URINE AUTO 2+ mg/dL (NEGATIVE); RBC, URINE AUTO TNTC /HPF (0-3); SPECIFIC GRAVITY URINE AUTO 1.008 (1.002-1.035); SQUAMOUS EPITHELIAL CELL UR AU 6 /HPF (0-6); UROBILINOGEN, URINE AUTO 0.2 mg/dL (0.0-2.0); WBC, URINE AUTO 20 /HPF (0-3)
[2023-10-15] VITALS (12 sets, daily range): BP systolic 98–121; BP diastolic 55–78; TEMP 97.9–99.2; O2SAT 89–99
[2023-10-15 01:42] LABS: HEMATOCRIT 24.1 % (36.0-47.0); HEMOGLOBIN 7.2 g/dl (12.0-15.5); MEAN CORPUSCULAR HEMOGLOBIN 23.2 pg (27.0-33.0); MEAN CORPUSCULAR HGB CONC 29.9 g/dl (32.0-36.5); MEAN CORPUSCULAR VOLUME 77.7 fl (80.0-96.0); WHITE BLOOD COUNT 5.8 10^3/uL (4.0-10.0)
[2023-10-15 01:49] LABS: PLATELET COUNT, AUTOMATED 143 10^3/uL (150-450)
[2023-10-15 03:11] LABS: INR 1.48; PARTIAL THROMBOPLASTIN TIME 33.8 SECONDS (24.8-34.2); PROTHROMBIN TIME 17.5 SECONDS (12.5-14.5)
[2023-10-15 03:18] LABS: ALBUMIN 2.7 G/DL (3.2-5.2); ALKALINE PHOSPHATASE 150 U/L (46-116); ALT/SGPT 35 U/L (7.0-40); AST/SGOT 81 U/L (<34); BLOOD UREA NITROGEN < 5 MG/DL (9-23); CALCIUM LEVEL 7.6 MG/DL (8.5-10.1); CARBON DIOXIDE LEVEL 30 MMOL/L (20-31); CHLORIDE LEVEL 104 MMOL/L (98-107); GLOMERULAR FILTRATION RATE > 60.0 (>60); GLUCOSE, FASTING 99 MG/DL (60-100); POTASSIUM SERUM 3.9 MMOL/L (3.5-5.1); SODIUM LEVEL 138 MMOL/L (136-145); TOTAL PROTEIN 6.4 G/DL (5.7-8.2)
[2023-10-15 04:31] LABS: BASO % 0.5 % (0.0-1.0); EOS # 0.2 10^3/uL (0.0-0.5); EOS % 2.7 % (0.0-3.0); HEMOGLOBIN 7.5 g/dl (12.0-15.5); LYMPH # 1.4 10^3/uL (1.5-5.0); LYMPH % 23.7 % (24.0-44.0); MEAN CORPUSCULAR HEMOGLOBIN 23.2 pg (27.0-33.0); MEAN CORPUSCULAR VOLUME 77.4 fl (80.0-96.0); MONO # 0.4 10^3/uL (0.0-0.8); NEUTROPHILS # 3.9 10^3/uL (1.5-8.5); NEUTROPHILS % 65.8 % (36.0-66.0); PLATELET COUNT, AUTOMATED 153 10^3/uL (150-450); RED BLOOD COUNT 3.23 10^6/uL (4.00-5.40); WHITE BLOOD COUNT 5.9 10^3/uL (4.0-10.0)
[2023-10-15 04:56] LABS: D-DIMER QUANT 1.85 ug/mL (<0.5)
[2023-10-15 05:09] LABS: ALBUMIN 2.9 G/DL (3.2-5.2); ALKALINE PHOSPHATASE 159 U/L (46-116); ALT/SGPT 39 U/L (7.0-40); AST/SGOT 85 U/L (<34); BLOOD UREA NITROGEN < 5 MG/DL (9-23); CALCIUM LEVEL 7.7 MG/DL (8.5-10.1); CARBON DIOXIDE LEVEL 28 MMOL/L (20-31); CHLORIDE LEVEL 103 MMOL/L (98-107); CREATININE FOR GFR 0.42 MG/DL (0.55-1.30); GLOMERULAR FILTRATION RATE > 60.0 (>60); GLUCOSE, FASTING 98 MG/DL (60-100); MAGNESIUM LEVEL 1.9 MG/DL (1.8-2.4); POTASSIUM SERUM 3.9 MMOL/L (3.5-5.1); SODIUM LEVEL 135 MMOL/L (136-145); TOTAL PROTEIN 6.7 G/DL (5.7-8.2)
[2023-10-15 08:08] LABS: LDH LACTATE DEHYDROGENASE 237 U/L (120-246)
[2023-10-15] MEDS: PANTOPRAZOLE 40MG VIAL IV SCH (08:51)
[2023-10-15] MEDS: LR 1,000 ML IV SCH (11:44)
[2023-10-15 13:30] LABS: HEMATOCRIT 24.7 % (36.0-47.0); HEMOGLOBIN 7.4 g/dl (12.0-15.5); MEAN CORPUSCULAR HEMOGLOBIN 23.4 pg (27.0-33.0); MEAN CORPUSCULAR VOLUME 78.2 fl (80.0-96.0); PLATELET COUNT, AUTOMATED 133 10^3/uL (150-450); RED BLOOD COUNT 3.16 10^6/uL (4.00-5.40); WHITE BLOOD COUNT 4.7 10^3/uL (4.0-10.0)
[2023-10-15 13:48] LABS: D-DIMER QUANT 1.25 ug/mL (<0.5); INR 1.35; PARTIAL THROMBOPLASTIN TIME 33.3 SECONDS (24.8-34.2); PROTHROMBIN TIME 16.2 SECONDS (12.5-14.5)
[2023-10-15 14:02] LABS: IRON (FE) 230 UG/DL (50-170); PERCENT SATURATION 57.5 % (13.2-45.0); TOTAL IRON BINDING CAPACITY 400 UG/DL (250-425)
[2023-10-15 14:04] LABS: FERRITIN 15.9 NG/ML (7.3-270.7); FOLATE > 24.00 NG/ML (>5.4); VITAMIN B12 LEVEL 614 PG/ML (211-911)
[2023-10-15] MEDS: HYDROMORPHONE HCL 0.5 MG/ 0.5 ML SYRINGE IV PRN (15:50)
[2023-10-15 18:21] LABS: HEMATOCRIT 24.9 % (36.0-47.0); HEMOGLOBIN 7.5 g/dl (12.0-15.5); MEAN CORPUSCULAR HEMOGLOBIN 23.3 pg (27.0-33.0); MEAN CORPUSCULAR HGB CONC 30.1 g/dl (32.0-36.5); MEAN CORPUSCULAR VOLUME 77.3 fl (80.0-96.0); PLATELET COUNT, AUTOMATED 126 10^3/uL (150-450); RED BLOOD COUNT 3.22 10^6/uL (4.00-5.40); WHITE BLOOD COUNT 4.1 10^3/uL (4.0-10.0)
[2023-10-15 18:42] LABS: D-DIMER QUANT 1.35 ug/mL (<0.5); INR 1.38; PARTIAL THROMBOPLASTIN TIME 31.4 SECONDS (24.8-34.2); PROTHROMBIN TIME 16.5 SECONDS (12.5-14.5)
[2023-10-16] VITALS (15 sets, daily range): BP systolic 104–122; BP diastolic 72–80; TEMP 97.6–99; O2SAT 94–100
[2023-10-16 04:19] LABS: BASO % 0.6 % (0.0-1.0); EOS # 0.2 10^3/uL (0.0-0.5); EOS % 3.6 % (0.0-3.0); HEMATOCRIT 24.9 % (36.0-47.0); HEMOGLOBIN 7.6 g/dl (12.0-15.5); LYMPH # 1.1 10^3/uL (1.5-5.0); LYMPH % 19.8 % (24.0-44.0); MEAN CORPUSCULAR HEMOGLOBIN 23.5 pg (27.0-33.0); MEAN CORPUSCULAR HGB CONC 30.5 g/dl (32.0-36.5); MEAN CORPUSCULAR VOLUME 77.1 fl (80.0-96.0); MONO # 0.3 10^3/uL (0.0-0.8); MONO % 5.7 % (2.0-8.0); NEUTROPHILS # 3.7 10^3/uL (1.5-8.5); NEUTROPHILS % 69.9 % (36.0-66.0); PLATELET COUNT, AUTOMATED 119 10^3/uL (150-450); RED BLOOD COUNT 3.23 10^6/uL (4.00-5.40); WHITE BLOOD COUNT 5.3 10^3/uL (4.0-10.0)
[2023-10-16 04:35] LABS: D-DIMER QUANT 1.74 ug/mL (<0.5); INR 1.38; PARTIAL THROMBOPLASTIN TIME 32.6 SECONDS (24.8-34.2); PROTHROMBIN TIME 16.6 SECONDS (12.5-14.5)
[2023-10-16 04:46] LABS: ALBUMIN 3.1 G/DL (3.2-5.2); ALKALINE PHOSPHATASE 162 U/L (46-116); ALT/SGPT 39 U/L (7.0-40); AST/SGOT 91 U/L (<34); BILIRUBIN,TOTAL 0.9 MG/DL (0.3-1.2); BLOOD UREA NITROGEN < 5 MG/DL (9-23); CALCIUM LEVEL 8.5 MG/DL (8.5-10.1); CARBON DIOXIDE LEVEL 27 MMOL/L (20-31); CHLORIDE LEVEL 104 MMOL/L (98-107); CREATININE FOR GFR 0.42 MG/DL (0.55-1.30); GLOMERULAR FILTRATION RATE > 60.0 (>60); GLUCOSE, FASTING 91 MG/DL (60-100); MAGNESIUM LEVEL 1.6 MG/DL (1.8-2.4); POTASSIUM SERUM 3.9 MMOL/L (3.5-5.1); SODIUM LEVEL 137 MMOL/L (136-145); TOTAL PROTEIN 6.9 G/DL (5.7-8.2)
[2023-10-16] MEDS: MAG SULF 1GM/100ML (MAG RUN) 1 GM in IV 1 EA IV SCH (05:26)
[2023-10-16] MEDS ORDERED: MIRALAX *UNIT DOSE* 17GM PACKET PO PRN (10:15)
[2023-10-17] VITALS (7 sets, daily range): BP systolic 111–132; BP diastolic 69–84; TEMP 97.6–98.8; O2SAT 94–99
[2023-10-17 08:01] LABS: BASO % 0.6 % (0.0-1.0); EOS # 0.2 10^3/uL (0.0-0.5); EOS % 3.9 % (0.0-3.0); HEMATOCRIT 26.5 % (36.0-47.0); HEMOGLOBIN 8.1 g/dl (12.0-15.5); LYMPH % 15.5 % (24.0-44.0); MEAN CORPUSCULAR HEMOGLOBIN 23.4 pg (27.0-33.0); MEAN CORPUSCULAR HGB CONC 30.6 g/dl (32.0-36.5); MEAN CORPUSCULAR VOLUME 76.6 fl (80.0-96.0); MONO # 0.3 10^3/uL (0.0-0.8); NEUTROPHILS # 4.6 10^3/uL (1.5-8.5); NEUTROPHILS % 74.5 % (36.0-66.0); PLATELET COUNT, AUTOMATED 124 10^3/uL (150-450); RED BLOOD COUNT 3.46 10^6/uL (4.00-5.40); WHITE BLOOD COUNT 6.2 10^3/uL (4.0-10.0)
[2023-10-17 08:17] LABS: D-DIMER QUANT 1.4 ug/mL (<0.5); INR 1.33; PARTIAL THROMBOPLASTIN TIME 32.3 SECONDS (24.8-34.2); PROTHROMBIN TIME 16.1 SECONDS (12.5-14.5)
[2023-10-17 08:47] LABS: ALBUMIN 3.2 G/DL (3.2-5.2); ALKALINE PHOSPHATASE 179 U/L (46-116); ALT/SGPT 45 U/L (7.0-40); AST/SGOT 102 U/L (<34); BILIRUBIN,TOTAL 0.8 MG/DL (0.3-1.2); BLOOD UREA NITROGEN < 5 MG/DL (9-23); CARBON DIOXIDE LEVEL 26 MMOL/L (20-31); CHLORIDE LEVEL 105 MMOL/L (98-107); CREATININE FOR GFR 0.44 MG/DL (0.55-1.30); GLOMERULAR FILTRATION RATE > 60.0 (>60); GLUCOSE, FASTING 141 MG/DL (60-100); MAGNESIUM LEVEL 1.4 MG/DL (1.8-2.4); POTASSIUM SERUM 3.5 MMOL/L (3.5-5.1); SODIUM LEVEL 134 MMOL/L (136-145); TOTAL PROTEIN 7.5 G/DL (5.7-8.2)
[2023-10-17] MEDS ORDERED: HYDROmorphone HCL 2MG/ML 1ML VIAL IV PRN (09:50)
[2023-10-17] MEDS: MAG SULF 1GM/100ML (MAG RUN) 1 GM in IV 1 EA IV SCH (11:12)
[2023-10-17] MEDS: HYDROmorphone HCL 2MG/ML 1ML VIAL IV PRN ×2 (12:22→16:36)
[2023-10-17] MEDS: SUCRALFATE 1 GM TAB PO SCH (13:38)
[2023-10-18 00:17] VITALS: BP 126/80; TEMP 97.8; O2SAT 97
[2023-10-18 04:00] VITALS: BP 116/68; TEMP 98; O2SAT 97
[2023-10-18 06:13] LABS: BASO % 0.5 % (0.0-1.0); EOS # 0.2 10^3/uL (0.0-0.5); EOS % 3.3 % (0.0-3.0); HEMATOCRIT 27.1 % (36.0-47.0); HEMOGLOBIN 8.3 g/dl (12.0-15.5); LYMPH # 1.2 10^3/uL (1.5-5.0); LYMPH % 19.6 % (24.0-44.0); MEAN CORPUSCULAR HEMOGLOBIN 23.6 pg (27.0-33.0); MEAN CORPUSCULAR HGB CONC 30.6 g/dl (32.0-36.5); MONO # 0.5 10^3/uL (0.0-0.8); MONO % 8.1 % (2.0-8.0); NEUTROPHILS # 4.3 10^3/uL (1.5-8.5); NEUTROPHILS % 68.2 % (36.0-66.0); PLATELET COUNT, AUTOMATED 138 10^3/uL (150-450); RED BLOOD COUNT 3.52 10^6/uL (4.00-5.40); WHITE BLOOD COUNT 6.3 10^3/uL (4.0-10.0)
[2023-10-18 06:30] LABS: ALBUMIN 3.4 G/DL (3.2-5.2); ALKALINE PHOSPHATASE 192 U/L (46-116); ALT/SGPT 45 U/L (7.0-40); AST/SGOT 87 U/L (<34); BILIRUBIN,TOTAL 0.9 MG/DL (0.3-1.2); BLOOD UREA NITROGEN < 5 MG/DL (9-23); CARBON DIOXIDE LEVEL 26 MMOL/L (20-31); CHLORIDE LEVEL 103 MMOL/L (98-107); CREATININE FOR GFR 0.45 MG/DL (0.55-1.30); GLOMERULAR FILTRATION RATE > 60.0 (>60); GLUCOSE, FASTING 98 MG/DL (60-100); MAGNESIUM LEVEL 1.6 MG/DL (1.8-2.4); POTASSIUM SERUM 3.9 MMOL/L (3.5-5.1); SODIUM LEVEL 134 MMOL/L (136-145); TOTAL PROTEIN 7.7 G/DL (5.7-8.2)
[2023-10-18 07:34] VITALS: BP 117/79; TEMP 99.1; O2SAT 97
[2023-10-18] MEDS: MAG SULF 1GM/100ML (MAG RUN) 1 GM in IV 1 EA IV SCH (07:55)
[2023-10-18] MEDS ORDERED: oxyCODONE 5MG TAB PO PRN (11:30)
[2023-10-18 11:34] VITALS: BP 130/89
[2023-10-18] MEDS ORDERED: SUCR1TAB56 PO ×2 (14:01→14:14)
[2023-10-18] MEDS ORDERED: OXYC-517 PO ×2 (14:01→14:16)
[2023-10-18] MEDS ORDERED: MAGN400T35 PO (14:14)
[2023-10-18] MEDS ORDERED: CIPR-249 PO (14:14)
[2023-10-18] MEDS: oxyCODONE 5MG TAB PO PRN (15:32)
== END 2023-10-18 15:55 | disposition home or self-care (01) | DRG 439 ==
LOC: M ED 22:36 → M ED INP 10-14 03:01 → M MS5PR 10-14 10:07 → M ICU 10-15 03:07 → M PCU 10-17 02:49
PROVIDERS: ADMIT Internal Medicine; ATTEND Internal Medicine
DX: K85.20 Alcohol induced acute pancreatitis without necrosis or infection (principal); E87.20 Acidosis, unspecified; E87.0 Hyperosmolality and hypernatremia; F11.20 Opioid dependence, uncomplicated; D68.4 Acquired coagulation factor deficiency; F10.20 Alcohol dependence, uncomplicated; K70.30 Alcoholic cirrhosis of liver without ascites; G89.4 Chronic pain syndrome; F41.9 Anxiety disorder, unspecified; E83.42 Hypomagnesemia; K86.81 Exocrine pancreatic insufficiency; K59.00 Constipation, unspecified; R04.0 Epistaxis; R31.9 Hematuria, unspecified; K57.30 Diverticulosis of large intestine without perforation or abscess without bleeding; K29.80 Duodenitis without bleeding; Z88.8 Allergy status to other drugs, medicaments and biological substances; Z79.899 Other long term (current) drug therapy

== ENCOUNTER 2023-11-21 04:37 | Emergency (ER) | payer OTHER ==
[~2023-11-21] VITALS: Ht 162.6 cm; Wt 65.9 kg
[2023-11-21 04:52] VITALS: BP 111/77; TEMP 97.4; O2SAT 97
== END 2023-11-21 10:56 | disposition left against medical advice (07) ==
LOC: EDBD 04:37 → M ED 04:37
DX: Z53.21 Procedure and treatment not carried out due to patient leaving prior to being seen by health care provider (principal)

== ENCOUNTER 2023-12-03 08:00 | Inpatient (IN) | payer OTHER ==
[~2023-12-03] VITALS: Ht 162.6 cm; Wt 67.3 kg
[2023-12-03] MEDS: FOLIC ACID 1MG TAB PO SCH ×2 (09:00→14:33)
[2023-12-03] MEDS: MULTIVITAMINS/MINERALS THERAP 1 TAB PO SCH ×2 (09:00→14:33)
[2023-12-03] MEDS: THIAMINE 100 MG TAB PO SCH ×2 (09:00→14:33)
[2023-12-03 09:03] LABS: BASO # 0.1 10^3/uL (0.0-0.2); BASO % 1.3 % (0.0-1.0); EOS # 0.1 10^3/uL (0.0-0.5); EOS % 2.2 % (0.0-3.0); HEMATOCRIT 30.7 % (36.0-47.0); HEMOGLOBIN 9.1 g/dl (12.0-15.5); LYMPH # 1.4 10^3/uL (1.5-5.0); LYMPH % 29.2 % (24.0-44.0); MEAN CORPUSCULAR HGB CONC 29.6 g/dl (32.0-36.5); MEAN CORPUSCULAR VOLUME 74.3 fl (80.0-96.0); MONO # 0.3 10^3/uL (0.0-0.8); MONO % 5.6 % (2.0-8.0); NEUTROPHILS # 2.8 10^3/uL (1.5-8.5); NEUTROPHILS % 61.3 % (36.0-66.0); PLATELET COUNT, AUTOMATED 133 10^3/uL (150-450); RED BLOOD COUNT 4.13 10^6/uL (4.00-5.40); WHITE BLOOD COUNT 4.6 10^3/uL (4.0-10.0)
[2023-12-03] MEDS: LORazepam 2 MG TAB PO PRN (09:03)
[2023-12-03] MEDS: PANTOPRAZOLE 40MG VIAL IV ONE (09:04)
[2023-12-03] MEDS: ONDANSETRON 4MG 2ML VIAL IV ONE (09:04)
[2023-12-03] MEDS: NS 1,000 ML IV ONE (09:04)
[2023-12-03 09:29] LABS: ALBUMIN 3.4 G/DL (3.2-5.2); BILIRUBIN,DIRECT 0.3 MG/DL (<0.4); BILIRUBIN,TOTAL 0.6 MG/DL (0.3-1.2); MAGNESIUM LEVEL 1.5 MG/DL (1.8-2.4); TOTAL PROTEIN 7.9 G/DL (5.7-8.2)
[2023-12-03] MEDS: SUCRALFATE SUSP 1GM/10ML UD PO ONE (09:33)
[2023-12-03] MEDS: MORPHINE 2 MG/ML 1ML VIAL IV PRN (09:53)
[2023-12-03] MEDS ORDERED: SUCR1TA PO (12:04)
[2023-12-03] MEDS ORDERED: ONDA-282 PO (12:04)
[2023-12-03] MEDS ORDERED: MAGN400T2 PO (12:04)
[2023-12-03] MEDS ORDERED: HOME MED LIST COMPLETE! XX SCH (12:05)
[2023-12-03] MEDS ORDERED: MIRALAX *UNIT DOSE* 17GM PACKET PO PRN (12:35)
[2023-12-03] MEDS ORDERED: SENOKOT S TAB PO PRN (12:35)
[2023-12-03] MEDS ORDERED: ACETAMINOPHEN TAB 650MG DOSE (2X325MG) PO PRN (13:10)
[2023-12-03] MEDS ORDERED: ONDANSETRON 4MG 2ML VIAL IV PRN (13:10)
[2023-12-03] MEDS: KCL 40MEQ in NS 1000ML 1,000 ML IV SCH (13:20)
[2023-12-03] MEDS: MAG SULF 1GM/100ML (MAG RUN) 1 GM in IV 1 EA IV SCH (13:20)
[2023-12-03] MEDS: MORPHINE 4 MG/ML 1ML VIAL IV PRN (13:57)
[2023-12-03] MEDS: NS 500 ML IV ONE (14:03)
[2023-12-03] MEDS: PANTOPRAZOLE 40MG VIAL IV SCH (14:33)
[2023-12-03] MEDS: METOCLOPRAMIDE INJ 10MG/2ML VIAL IV SCH (14:33)
[2023-12-03 14:37] LABS: C REACTIVE PROTEIN QUANTITATIV < 0.40 MG/DL (<1.0)
[2023-12-03 14:50] LABS: BLOOD UREA NITROGEN < 5 MG/DL (9-23); CALCIUM LEVEL 7.2 MG/DL (8.5-10.1); CARBON DIOXIDE LEVEL 22 MMOL/L (20-31); CHLORIDE LEVEL 105 MMOL/L (98-107); CREATININE FOR GFR 0.38 MG/DL (0.55-1.30); GLOMERULAR FILTRATION RATE > 60.0 (>60); GLUCOSE, FASTING 85 MG/DL (60-100); POTASSIUM SERUM 3.6 MMOL/L (3.5-5.1); SODIUM LEVEL 139 MMOL/L (136-145)
[2023-12-03] MEDS ORDERED: LORazepam 2 MG TAB PO PRN (17:40)
[2023-12-03] MEDS: CREON-24 CAPSULE (PANCRELIPASE) PO SCH (18:00)
[2023-12-03 18:15] VITALS: BP 105/63; TEMP 99; O2SAT 95
[2023-12-03 18:36] VITALS: BP 105/63
[2023-12-03 20:28] VITALS: BP 102/60; TEMP 98.2; O2SAT 97
[2023-12-03] MEDS: MAGNESIUM OXIDE 400MG TAB (MAG-OX) PO SCH (20:37)
[2023-12-03] MEDS: SUCRALFATE 1 GM TAB PO SCH (20:41)
[2023-12-03] MEDS ORDERED: THIAMINE 100 MG TAB PO SCH (21:00)
[2023-12-03] MEDS: HYDROMORPHONE HCL 0.5 MG/ 0.5 ML SYRINGE IV ONE (23:38)
[2023-12-03] MEDS: LIDOCAINE 5% (LIDODERM) PATCH TD SCH (23:39)
[2023-12-04] VITALS (8 sets, daily range): BP systolic 100–140; BP diastolic 59–74; TEMP 98.3–99.1; O2SAT 94–98
[2023-12-04] MEDS: LORazepam 2 MG TAB PO PRN (05:26)
[2023-12-04] MEDS: KETOROLAC 30 MG/ML 1ML VIAL IV ONE (05:59)
[2023-12-04 06:12] LABS: HEMATOCRIT 29.2 % (36.0-47.0); HEMOGLOBIN 8.6 g/dl (12.0-15.5); MEAN CORPUSCULAR HEMOGLOBIN 22.1 pg (27.0-33.0); MEAN CORPUSCULAR HGB CONC 29.5 g/dl (32.0-36.5); MEAN CORPUSCULAR VOLUME 75.1 fl (80.0-96.0); PLATELET COUNT, AUTOMATED 101 10^3/uL (150-450); RED BLOOD COUNT 3.89 10^6/uL (4.00-5.40); WHITE BLOOD COUNT 4.4 10^3/uL (4.0-10.0)
[2023-12-04 06:33] LABS: ALBUMIN 3.6 G/DL (3.2-5.2); ALKALINE PHOSPHATASE 233 U/L (46-116); ALT/SGPT 53 U/L (7.0-40); AST/SGOT 127 U/L (<34); BILIRUBIN,TOTAL 1.3 MG/DL (0.3-1.2); BLOOD UREA NITROGEN < 5 MG/DL (9-23); CALCIUM LEVEL 7.8 MG/DL (8.5-10.1); CARBON DIOXIDE LEVEL 19 MMOL/L (20-31); CHLORIDE LEVEL 99 MMOL/L (98-107); CREATININE FOR GFR 0.37 MG/DL (0.55-1.30); GLOMERULAR FILTRATION RATE > 60.0 (>60); GLUCOSE, FASTING 71 MG/DL (60-100); MAGNESIUM LEVEL 1.6 MG/DL (1.8-2.4); POTASSIUM SERUM 3.9 MMOL/L (3.5-5.1); SODIUM LEVEL 132 MMOL/L (136-145)
[2023-12-04] MEDS: LR 1,000 ML IV ONE (06:37)
[2023-12-04] MEDS: MAG SULF 1GM/100ML (MAG RUN) 1 GM in IV 1 EA IV SCH ×2 (08:41→14:27)
[2023-12-04] MEDS: SODIUM BICARBONATE 325 MG TAB PO SCH (08:41)
[2023-12-04] MEDS ORDERED: FOLIC ACID 1MG TAB PO SCH ×2 (09:00)
[2023-12-04] MEDS ORDERED: MULTIVITAMINS/MINERALS THERAP 1 TAB PO SCH (09:00)
[2023-12-04] MEDS ORDERED: LACTULOSE 20GM/30ML SYRUP UDC PO PRN (13:50)
[2023-12-05 04:00] VITALS: BP 109/69; TEMP 99; O2SAT 98
[2023-12-05 06:00] LABS: BASO % 1.1 % (0.0-1.0); EOS # 0.1 10^3/uL (0.0-0.5); EOS % 3.6 % (0.0-3.0); HEMATOCRIT 27.3 % (36.0-47.0); LYMPH # 0.8 10^3/uL (1.5-5.0); MEAN CORPUSCULAR HEMOGLOBIN 22.1 pg (27.0-33.0); MEAN CORPUSCULAR HGB CONC 29.3 g/dl (32.0-36.5); MEAN CORPUSCULAR VOLUME 75.4 fl (80.0-96.0); MONO # 0.2 10^3/uL (0.0-0.8); MONO % 8.7 % (2.0-8.0); NEUTROPHILS # 1.6 10^3/uL (1.5-8.5); NEUTROPHILS % 57.2 % (36.0-66.0); RED BLOOD COUNT 3.62 10^6/uL (4.00-5.40); WHITE BLOOD COUNT 2.8 10^3/uL (4.0-10.0)
[2023-12-05 06:13] LABS: ALBUMIN 3.3 G/DL (3.2-5.2); ALKALINE PHOSPHATASE 206 U/L (46-116); ALT/SGPT 42 U/L (7.0-40); AST/SGOT 96 U/L (<34); BILIRUBIN,TOTAL 1.1 MG/DL (0.3-1.2); BLOOD UREA NITROGEN < 5 MG/DL (9-23); CALCIUM LEVEL 8.3 MG/DL (8.5-10.1); CARBON DIOXIDE LEVEL 26 MMOL/L (20-31); CHLORIDE LEVEL 100 MMOL/L (98-107); CREATININE FOR GFR 0.42 MG/DL (0.55-1.30); GLOMERULAR FILTRATION RATE > 60.0 (>60); GLUCOSE, FASTING 88 MG/DL (60-100); MAGNESIUM LEVEL 1.7 MG/DL (1.8-2.4); POTASSIUM SERUM 4.3 MMOL/L (3.5-5.1); SODIUM LEVEL 131 MMOL/L (136-145); TOTAL PROTEIN 7.5 G/DL (5.7-8.2)
[2023-12-05 06:41] LABS: PLATELET COUNT, AUTOMATED 72 10^3/uL (150-450)
[2023-12-05 08:42] VITALS: BP 130/90
[2023-12-05] MEDS: MAG SULF 1GM/100ML (MAG RUN) 1 GM in IV 1 EA IV SCH (09:38)
[2023-12-05 09:46] LABS: LIPASE 334 U/L (12-53)
[2023-12-05 12:00] VITALS: BP 114/80; TEMP 97.3; O2SAT 97
[2023-12-05] MEDS: NS 500 ML IV ONE (13:30)
[2023-12-05] MEDS: NS 1,000 ML IV SCH (14:09)
== END 2023-12-05 15:58 | disposition left against medical advice (07) | DRG 439 ==
LOC: EDBD 08:00 → M ED 08:00 → M ED INP 13:24 → M MSPAV 18:24
PROVIDERS: ADMIT Hospitalist; ATTEND Hospitalist
DX: K85.20 Alcohol induced acute pancreatitis without necrosis or infection (principal); K76.6 Portal hypertension; E87.20 Acidosis, unspecified; K70.30 Alcoholic cirrhosis of liver without ascites; D50.9 Iron deficiency anemia, unspecified; F41.9 Anxiety disorder, unspecified; F32.A Depression, unspecified; E83.42 Hypomagnesemia; E87.6 Hypokalemia; F10.229 Alcohol dependence with intoxication, unspecified; Z79.899 Other long term (current) drug therapy; Z91.041 Radiographic dye allergy status; Z88.8 Allergy status to other drugs, medicaments and biological substances

== ENCOUNTER 2023-12-25 04:45 | Inpatient (IN) | payer OTHER ==
[~2023-12-25] VITALS: Ht 162.6 cm; Wt 65.2 kg
[2023-12-25 05:14] LABS: BASO # 0.2 10^3/uL (0.0-0.2); EOS # 0.3 10^3/uL (0.0-0.5); EOS % 3.4 % (0.0-3.0); HEMATOCRIT 40.4 % (36.0-47.0); HEMOGLOBIN 12.4 g/dl (12.0-15.5); LYMPH # 4.4 10^3/uL (1.5-5.0); MEAN CORPUSCULAR HEMOGLOBIN 24.6 pg (27.0-33.0); MEAN CORPUSCULAR HGB CONC 30.7 g/dl (32.0-36.5); MEAN CORPUSCULAR VOLUME 80.2 fl (80.0-96.0); MONO # 0.4 10^3/uL (0.0-0.8); MONO % 3.6 % (2.0-8.0); NEUTROPHILS # 4.8 10^3/uL (1.5-8.5); NEUTROPHILS % 47.7 % (36.0-66.0); PLATELET COUNT, AUTOMATED 317 10^3/uL (150-450); RED BLOOD COUNT 5.04 10^6/uL (4.00-5.40); WHITE BLOOD COUNT 10.1 10^3/uL (4.0-10.0)
[2023-12-25 05:40] LABS: LIPASE 393 U/L (12-53)
[2023-12-25 05:42] LABS: ALBUMIN 3.5 G/DL (3.2-5.2); ALKALINE PHOSPHATASE 254 U/L (46-116); ALT/SGPT 67 U/L (7.0-40); AST/SGOT 179 U/L (<34); BILIRUBIN,DIRECT 0.5 MG/DL (<0.4); TOTAL PROTEIN 8.3 G/DL (5.7-8.2)
[2023-12-25 05:52] LABS: ETHYL ALCOHOL (ETHANOL) 0.433 % (0.000-0.010)
[2023-12-25] MEDS: NS 1,000 ML IV ONE ×2 (06:03→08:01)
[2023-12-25] MEDS: MORPHINE 4 MG/ML 1ML VIAL IV ONE (06:03)
[2023-12-25] MEDS: HYDROMORPHONE HCL 0.5 MG/ 0.5 ML SYRINGE IV PRN ×2 (07:56→12:58)
[2023-12-25 08:18] LABS: PROCALCITONIN <0.04 ng/ml
[2023-12-25] MEDS: MULTIVITAMINS/MINERALS THERAP 1 TAB PO SCH (09:00)
[2023-12-25] MEDS: PANTOPRAZOLE 40MG VIAL IV SCH (09:00)
[2023-12-25] MEDS: FOLIC ACID 1MG TAB PO SCH (09:00)
[2023-12-25] MEDS: POTASSIUM CHLORIDE 10MEQ SR TABLET PO ONE (10:40)
[2023-12-25] MEDS ORDERED: HYDROMORPHONE HCL 0.5 MG/ 0.5 ML SYRINGE IV PRN (10:40)
[2023-12-25] MEDS: THIAMINE 100 MG TAB PO SCH (11:00)
[2023-12-25] MEDS ORDERED: HOME MED LIST COMPLETE! XX SCH (11:20)
[2023-12-25] MEDS: LR 1,000 ML IV SCH (11:21)
[2023-12-25] MEDS: ONDANSETRON 4MG 2ML VIAL IV PRN (11:22)
[2023-12-25 11:23] LABS: BLOOD UREA NITROGEN 9 MG/DL (9-23); CALCIUM LEVEL 8.6 MG/DL (8.5-10.1); CARBON DIOXIDE LEVEL 24 MMOL/L (20-31); CHLORIDE LEVEL 107 MMOL/L (98-107); GLOMERULAR FILTRATION RATE > 60.0 (>60); GLUCOSE, FASTING 89 MG/DL (60-100); MAGNESIUM LEVEL 1.9 MG/DL (1.8-2.4); POTASSIUM SERUM 3.5 MMOL/L (3.5-5.1); SODIUM LEVEL 143 MMOL/L (136-145); TRIGLYCERIDES LEVEL 79 MG/DL (<150)
[2023-12-25 11:38] LABS: INR 1.54; PARTIAL THROMBOPLASTIN TIME 36.7 SECONDS (24.8-34.2)
[2023-12-25 12:00] VITALS: BP 110/63; TEMP 98.6; O2SAT 85; O2SAT 96
[2023-12-25] MEDS: SUCRALFATE SUSP 1GM/10ML UD PO SCH (12:00)
[2023-12-25] MEDS: OXAZEPAM 10MG CAP PO SCH (12:57)
[2023-12-25] MEDS: CREON-24 CAPSULE (PANCRELIPASE) PO SCH (12:57)
[2023-12-25] MEDS: MAG SULF 1GM/100ML (MAG RUN) 1 GM in IV 1 EA IV SCH (12:58)
[2023-12-25] MEDS: PREGABALIN 50 MG CAP (LYRICA) PO SCH (13:06)
[2023-12-25 16:00] VITALS: BP 102/64; TEMP 98; O2SAT 93
[2023-12-25] MEDS: LACTULOSE 20GM/30ML SYRUP UDC PO SCH (16:00)
[2023-12-25 20:09] VITALS: BP 106/65; TEMP 98.2; O2SAT 95
[2023-12-25 23:23] VITALS: BP 110/70; TEMP 98; O2SAT 94
[2023-12-26] MEDS ORDERED: GLUCOSE 4 GM CHEW PO PRN (00:05)
[2023-12-26] MEDS ORDERED: GLUCAGON INJ 1MG VIAL SC PRN (00:05)
[2023-12-26] MEDS: DEXTROSE 50% 50ML SYRINGE IV PRN (00:12)
[2023-12-26] MEDS: THIAMINE INJection 500 MG in NS 100 ML IV SCH (00:39)
[2023-12-26 03:37] VITALS: BP 126/61; TEMP 97.8; O2SAT 93
[2023-12-26] MEDS ORDERED: MAG SULF 1GM/100ML (MAG RUN) 1 GM in IV 1 EA IV SCH (06:20)
[2023-12-26] MEDS: D5W/0.9% SODIUM CHLORIDE 1,000 ML IV SCH (06:24)
[2023-12-26 07:09] LABS: BASO # 0.1 10^3/uL (0.0-0.2); BASO % 1.3 % (0.0-1.0); EOS # 0.2 10^3/uL (0.0-0.5); HEMATOCRIT 31.8 % (36.0-47.0); MEAN CORPUSCULAR VOLUME 81.5 fl (80.0-96.0); MONO # 0.3 10^3/uL (0.0-0.8); NEUTROPHILS # 2.4 10^3/uL (1.5-8.5); WHITE BLOOD COUNT 4.7 10^3/uL (4.0-10.0)
[2023-12-26 07:18] LABS: INR 1.5; PROTHROMBIN TIME 17.6 SECONDS (12.5-14.5)
[2023-12-26 07:21] LABS: EOS % 3.2 % (0.0-3.0); LYMPH # 1.8 10^3/uL (1.5-5.0); LYMPH % 37.8 % (24.0-44.0); MEAN CORPUSCULAR HEMOGLOBIN 25.1 pg (27.0-33.0); MEAN CORPUSCULAR HGB CONC 30.8 g/dl (32.0-36.5); NEUTROPHILS % 51.5 % (36.0-66.0); PLATELET COUNT, AUTOMATED 122 10^3/uL (150-450)
[2023-12-26 07:26] LABS: HEMOGLOBIN 9.8 g/dl (12.0-15.5)
[2023-12-26 07:30] VITALS: BP 120/71; TEMP 98.1; O2SAT 94
[2023-12-26 07:47] LABS: ALBUMIN 2.9 G/DL (3.2-5.2); ALKALINE PHOSPHATASE 191 U/L (46-116); ALT/SGPT 44 U/L (7.0-40); AST/SGOT 98 U/L (<34); BILIRUBIN,DIRECT 0.6 MG/DL (<0.4); BILIRUBIN,TOTAL 1.4 MG/DL (0.3-1.2); BLOOD UREA NITROGEN < 5 MG/DL (9-23); CALCIUM LEVEL 8.5 MG/DL (8.5-10.1); CARBON DIOXIDE LEVEL 27 MMOL/L (20-31); CHLORIDE LEVEL 102 MMOL/L (98-107); CREATININE FOR GFR 0.45 MG/DL (0.55-1.30); GLOMERULAR FILTRATION RATE > 60.0 (>60); GLUCOSE, FASTING 67 MG/DL (60-100); MAGNESIUM LEVEL 1.5 MG/DL (1.8-2.4); POTASSIUM SERUM 3.9 MMOL/L (3.5-5.1); SODIUM LEVEL 136 MMOL/L (136-145); TOTAL PROTEIN 6.6 G/DL (5.7-8.2)
[2023-12-26] MEDS: MAG SULF 1GM/100ML (MAG RUN) 1 GM in IV 1 EA IV SCH (08:42)
[2023-12-26 12:00] VITALS: BP 116/66; TEMP 98.1; O2SAT 92
[2023-12-26 16:00] VITALS: BP 128/85; TEMP 98.1; O2SAT 96
[2023-12-26] MEDS: OXAZEPAM 10MG CAP PO SCH (18:00)
[2023-12-26 19:56] VITALS: BP 140/89; TEMP 97.7; O2SAT 96
[2023-12-26 23:45] VITALS: BP 134/83; TEMP 98; O2SAT 97
[2023-12-27 03:34] VITALS: BP 121/75; TEMP 98.1; O2SAT 93
[2023-12-27 07:18] LABS: BASO % 1.1 % (0.0-1.0); EOS # 0.2 10^3/uL (0.0-0.5); HEMOGLOBIN 9.8 g/dl (12.0-15.5); LYMPH # 0.9 10^3/uL (1.5-5.0); LYMPH % 25.1 % (24.0-44.0); MEAN CORPUSCULAR HEMOGLOBIN 24.6 pg (27.0-33.0); MEAN CORPUSCULAR HGB CONC 30.6 g/dl (32.0-36.5); MEAN CORPUSCULAR VOLUME 80.4 fl (80.0-96.0); MONO # 0.2 10^3/uL (0.0-0.8); MONO % 5.8 % (2.0-8.0); NEUTROPHILS # 2.3 10^3/uL (1.5-8.5); NEUTROPHILS % 62.7 % (36.0-66.0); PLATELET COUNT, AUTOMATED 104 10^3/uL (150-450); RED BLOOD COUNT 3.98 10^6/uL (4.00-5.40); WHITE BLOOD COUNT 3.6 10^3/uL (4.0-10.0)
[2023-12-27 07:48] LABS: ALBUMIN 2.9 G/DL (3.2-5.2); ALKALINE PHOSPHATASE 183 U/L (46-116); ALT/SGPT 37 U/L (7.0-40); AST/SGOT 81 U/L (<34); BILIRUBIN,TOTAL 1.1 MG/DL (0.3-1.2); BLOOD UREA NITROGEN < 5 MG/DL (9-23); CALCIUM LEVEL 8.2 MG/DL (8.5-10.1); CARBON DIOXIDE LEVEL 26 MMOL/L (20-31); CHLORIDE LEVEL 106 MMOL/L (98-107); CREATININE FOR GFR 0.42 MG/DL (0.55-1.30); GLOMERULAR FILTRATION RATE > 60.0 (>60); GLUCOSE, FASTING 126 MG/DL (60-100); MAGNESIUM LEVEL 1.6 MG/DL (1.8-2.4); POTASSIUM SERUM 3.4 MMOL/L (3.5-5.1); SODIUM LEVEL 136 MMOL/L (136-145); TOTAL PROTEIN 6.8 G/DL (5.7-8.2)
[2023-12-27 07:58] VITALS: BP 119/62; O2SAT 96
[2023-12-27] MEDS: MAG SULF 1GM/100ML (MAG RUN) 1 GM in IV 1 EA IV SCH ×2 (08:33→13:05)
[2023-12-27 11:39] VITALS: BP 116/71; TEMP 97.5; O2SAT 96
[2023-12-27] MEDS: HYDROMORPHONE HCL 0.5 MG/ 0.5 ML SYRINGE IV PRN (12:21)
[2023-12-27] MEDS: KCL 40MEQ IN D5/NS 1000ML 1,000 ML IV SCH (13:05)
[2023-12-27] MEDS: ENOXAPARIN 40MG/0.4ML SYRINGE (J1650 PER 10MG) SC SCH (14:00)
[2023-12-27 15:39] VITALS: BP 120/73; TEMP 97.6; O2SAT 92
[2023-12-27 19:55] VITALS: BP 123/69; TEMP 98; O2SAT 97
[2023-12-28 03:21] VITALS: BP 121/75; TEMP 98.2; O2SAT 96
[2023-12-28 07:50] VITALS: BP 126/78; TEMP 97.4; O2SAT 97
[2023-12-28] MEDS: OXAZEPAM 10MG CAP PO SCH (09:00)
[2023-12-28] MEDS: NORCO, ANEXSIA 5/325MG TABLET (HYDROcodone/ACETAMINOPHEN) PO PRN (10:47)
[2023-12-28 11:21] LABS: BASO % 0.7 % (0.0-1.0); EOS # 0.2 10^3/uL (0.0-0.5); EOS % 4.2 % (0.0-3.0); HEMATOCRIT 33.5 % (36.0-47.0); HEMOGLOBIN 10.5 g/dl (12.0-15.5); LYMPH # 0.8 10^3/uL (1.5-5.0); LYMPH % 19.8 % (24.0-44.0); MEAN CORPUSCULAR HEMOGLOBIN 25.4 pg (27.0-33.0); MEAN CORPUSCULAR HGB CONC 31.3 g/dl (32.0-36.5); MEAN CORPUSCULAR VOLUME 81.1 fl (80.0-96.0); MONO # 0.3 10^3/uL (0.0-0.8); MONO % 6.8 % (2.0-8.0); NEUTROPHILS # 2.9 10^3/uL (1.5-8.5); RED BLOOD COUNT 4.13 10^6/uL (4.00-5.40); WHITE BLOOD COUNT 4.3 10^3/uL (4.0-10.0)
[2023-12-28 11:49] LABS: ALBUMIN 3.2 G/DL (3.2-5.2); ALKALINE PHOSPHATASE 211 U/L (46-116); ALT/SGPT 56 U/L (7.0-40); AST/SGOT 158 U/L (<34); BLOOD UREA NITROGEN < 5 MG/DL (9-23); CALCIUM LEVEL 8.9 MG/DL (8.5-10.1); CARBON DIOXIDE LEVEL 23 MMOL/L (20-31); CHLORIDE LEVEL 108 MMOL/L (98-107); CREATININE FOR GFR 0.42 MG/DL (0.55-1.30); GLOMERULAR FILTRATION RATE > 60.0 (>60); GLUCOSE, FASTING 145 MG/DL (60-100); MAGNESIUM LEVEL 1.4 MG/DL (1.8-2.4); POTASSIUM SERUM 3.9 MMOL/L (3.5-5.1); SODIUM LEVEL 136 MMOL/L (136-145); TOTAL PROTEIN 7.3 G/DL (5.7-8.2)
[2023-12-28 12:29] LABS: PLATELET COUNT, AUTOMATED 83 10^3/uL (150-450)
[2023-12-28 13:59] VITALS: BP 121/72; TEMP 98.2; O2SAT 97
[2023-12-28 20:00] VITALS: BP 142/93; TEMP 98.2; O2SAT 97
[2023-12-29] VITALS (7 sets, daily range): BP systolic 133–170; BP diastolic 85–105; TEMP 97.7–98.4; O2SAT 95–97
[2023-12-29] MEDS: LORazepam 2 MG TAB PO PRN (04:37)
[2023-12-29] MEDS: ANEXSIA, NORCO 7.5MG/325MG TABLET(HYDROCODONE/APAP) PO PRN (05:06)
[2023-12-29 06:16] LABS: ALBUMIN 3.4 G/DL (3.2-5.2); ALKALINE PHOSPHATASE 232 U/L (46-116); ALT/SGPT 73 U/L (7.0-40); AST/SGOT 164 U/L (<34); BILIRUBIN,TOTAL 1.1 MG/DL (0.3-1.2); BLOOD UREA NITROGEN < 5 MG/DL (9-23); CALCIUM LEVEL 9.7 MG/DL (8.5-10.1); CARBON DIOXIDE LEVEL 23 MMOL/L (20-31); CHLORIDE LEVEL 106 MMOL/L (98-107); GLOMERULAR FILTRATION RATE > 60.0 (>60); GLUCOSE, FASTING 137 MG/DL (60-100); MAGNESIUM LEVEL 1.3 MG/DL (1.8-2.4); POTASSIUM SERUM 3.5 MMOL/L (3.5-5.1); SODIUM LEVEL 136 MMOL/L (136-145); TOTAL PROTEIN 7.4 G/DL (5.7-8.2)
[2023-12-29 06:53] LABS: BASO % 0.6 % (0.0-1.0); EOS # 0.1 10^3/uL (0.0-0.5); EOS % 1.8 % (0.0-3.0); HEMATOCRIT 32.9 % (36.0-47.0); HEMOGLOBIN 10.5 g/dl (12.0-15.5); LYMPH # 0.9 10^3/uL (1.5-5.0); LYMPH % 13.1 % (24.0-44.0); MEAN CORPUSCULAR HEMOGLOBIN 25.7 pg (27.0-33.0); MEAN CORPUSCULAR HGB CONC 31.9 g/dl (32.0-36.5); MEAN CORPUSCULAR VOLUME 80.4 fl (80.0-96.0); MONO # 0.4 10^3/uL (0.0-0.8); MONO % 6.6 % (2.0-8.0); NEUTROPHILS % 77.6 % (36.0-66.0); RED BLOOD COUNT 4.09 10^6/uL (4.00-5.40); WHITE BLOOD COUNT 6.5 10^3/uL (4.0-10.0)
[2023-12-29 06:57] LABS: PLATELET COUNT, AUTOMATED 85 10^3/uL (150-450)
[2023-12-29] MEDS: MAG SULF 1GM/100ML (MAG RUN) 1 GM in IV 1 EA IV SCH (08:19)
[2023-12-29] MEDS: MAG SULF 1GM/100ML (MAG RUN) 1 GM in IV 1 EA IV ONE (14:45)
[2023-12-29] MEDS ORDERED: PERCOCET 5MG/325MG TAB PO PRN (16:35)
[2023-12-29] MEDS: PERCOCET 5MG/325MG TAB PO PRN (17:36)
[2023-12-29] MEDS ORDERED: NALOXONE INJ 0.4MG/1ML VIAL IV PRN (20:45)
[2023-12-29] MEDS: MORPHINE 4 MG/ML 1ML VIAL IV ONE (21:13)
[2023-12-30] MEDS ORDERED: oxyCODONE 5MG TAB PO PRN (00:15)
[2023-12-30] MEDS: oxyCODONE 5MG TAB PO PRN (00:31)
[2023-12-30] MEDS: NS 1,000 ML IV ONE (02:29)
[2023-12-30] MEDS: HYDROMORPHONE HCL 0.5 MG/ 0.5 ML SYRINGE IV PRN ×2 (02:29→12:29)
[2023-12-30 04:00] VITALS: BP_SYST 120; BP_SYST 159; BP_DIAS 100; BP_DIAS 81; TEMP 98.8; O2SAT 98
[2023-12-30 06:00] LABS: BASO % 0.4 % (0.0-1.0); EOS # 0.1 10^3/uL (0.0-0.5); EOS % 0.8 % (0.0-3.0); HEMATOCRIT 31.7 % (36.0-47.0); HEMOGLOBIN 10.1 g/dl (12.0-15.5); LYMPH # 0.8 10^3/uL (1.5-5.0); LYMPH % 11.8 % (24.0-44.0); MEAN CORPUSCULAR HEMOGLOBIN 25.4 pg (27.0-33.0); MEAN CORPUSCULAR HGB CONC 31.9 g/dl (32.0-36.5); MEAN CORPUSCULAR VOLUME 79.6 fl (80.0-96.0); MONO # 0.5 10^3/uL (0.0-0.8); MONO % 7.2 % (2.0-8.0); NEUTROPHILS # 5.7 10^3/uL (1.5-8.5); NEUTROPHILS % 79.5 % (36.0-66.0); RED BLOOD COUNT 3.98 10^6/uL (4.00-5.40); WHITE BLOOD COUNT 7.1 10^3/uL (4.0-10.0)
[2023-12-30 06:01] LABS: PLATELET COUNT, AUTOMATED 87 10^3/uL (150-450)
[2023-12-30 06:22] LABS: LIPASE 593 U/L (12-53)
[2023-12-30 06:24] LABS: AMYLASE 407 U/L (30-118)
[2023-12-30 06:30] LABS: ALBUMIN 3.1 G/DL (3.2-5.2); ALKALINE PHOSPHATASE 202 U/L (46-116); ALT/SGPT 54 U/L (7.0-40); AST/SGOT 83 U/L (<34); BILIRUBIN,TOTAL 1.2 MG/DL (0.3-1.2); BLOOD UREA NITROGEN < 5 MG/DL (9-23); CALCIUM LEVEL 8.5 MG/DL (8.5-10.1); CARBON DIOXIDE LEVEL 22 MMOL/L (20-31); CHLORIDE LEVEL 105 MMOL/L (98-107); CREATININE FOR GFR 0.36 MG/DL (0.55-1.30); GLOMERULAR FILTRATION RATE > 60.0 (>60); GLUCOSE, FASTING 108 MG/DL (60-100); MAGNESIUM LEVEL 1.4 MG/DL (1.8-2.4); POTASSIUM SERUM 3.5 MMOL/L (3.5-5.1); SODIUM LEVEL 134 MMOL/L (136-145); TOTAL PROTEIN 7.1 G/DL (5.7-8.2)
[2023-12-30] MEDS: MAG SULF 1GM/100ML (MAG RUN) 1 GM in IV 1 EA IV SCH (10:48)
[2023-12-30 12:00] VITALS: BP 156/100; TEMP 98.2; O2SAT 96
[2023-12-30 12:15] VITALS: BP 152/96
[2023-12-30 14:54] VITALS: BP 140/86
[2023-12-30 22:01] VITALS: BP 136/86; TEMP 97.2; O2SAT 97
[2023-12-31 04:26] VITALS: BP 124/78; TEMP 98.6; O2SAT 98
[2023-12-31 06:33] LABS: BASO % 0.5 % (0.0-1.0); EOS # 0.2 10^3/uL (0.0-0.5); EOS % 2.8 % (0.0-3.0); HEMATOCRIT 30.6 % (36.0-47.0); HEMOGLOBIN 9.6 g/dl (12.0-15.5); LYMPH # 1.2 10^3/uL (1.5-5.0); LYMPH % 20.4 % (24.0-44.0); MEAN CORPUSCULAR HEMOGLOBIN 25.2 pg (27.0-33.0); MEAN CORPUSCULAR HGB CONC 31.4 g/dl (32.0-36.5); MEAN CORPUSCULAR VOLUME 80.3 fl (80.0-96.0); MONO # 0.6 10^3/uL (0.0-0.8); MONO % 10.4 % (2.0-8.0); NEUTROPHILS % 65.7 % (36.0-66.0); RED BLOOD COUNT 3.81 10^6/uL (4.00-5.40); WHITE BLOOD COUNT 6.1 10^3/uL (4.0-10.0)
[2023-12-31 06:36] LABS: PLATELET COUNT, AUTOMATED 93 10^3/uL (150-450)
[2023-12-31 07:00] LABS: ALKALINE PHOSPHATASE 185 U/L (35-104); ALT/SGPT 44 U/L (7.0-40); AST/SGOT 50 U/L (<34); BILIRUBIN,TOTAL 0.9 MG/DL (0.3-1.2); BLOOD UREA NITROGEN < 5 MG/DL (9-23); CALCIUM LEVEL 8.8 MG/DL (8.5-10.1); CARBON DIOXIDE LEVEL 23 MMOL/L (20-31); CHLORIDE LEVEL 105 MMOL/L (98-107); CREATININE FOR GFR 0.42 MG/DL (0.55-1.30); GLOMERULAR FILTRATION RATE > 60.0 (>60); GLUCOSE, FASTING 153 MG/DL (60-100); MAGNESIUM LEVEL 1.5 MG/DL (1.8-2.4); POTASSIUM SERUM 3.4 MMOL/L (3.5-5.1); SODIUM LEVEL 136 MMOL/L (136-145); TOTAL PROTEIN 6.8 G/DL (5.7-8.2)
[2023-12-31] MEDS: POTASSIUM CHLORIDE 10MEQ SR TABLET PO ONE (09:39)
[2023-12-31] MEDS: MAG SULF 1GM/100ML (MAG RUN) 1 GM in IV 1 EA IV SCH (09:41)
[2023-12-31] MEDS ORDERED: OXYC1TAB23 PO (11:43)
[2023-12-31 12:00] VITALS: BP 126/78; TEMP 98.4; O2SAT 96
== END 2023-12-31 16:11 | disposition home or self-care (01) | DRG 439 ==
LOC: EDBD 04:45 → M ED 04:45 → M ED INP 10:48 → M PCU 12:01 → M MSPAV 12-28 13:42
PROVIDERS: ADMIT Internal Medicine; ATTEND Internal Medicine
DX: K85.20 Alcohol induced acute pancreatitis without necrosis or infection (principal); E87.20 Acidosis, unspecified; D68.4 Acquired coagulation factor deficiency; E87.1 Hypo-osmolality and hyponatremia; F10.20 Alcohol dependence, uncomplicated; D50.9 Iron deficiency anemia, unspecified; D69.6 Thrombocytopenia, unspecified; F41.9 Anxiety disorder, unspecified; E83.42 Hypomagnesemia; F32.A Depression, unspecified; K70.10 Alcoholic hepatitis without ascites; E87.6 Hypokalemia; K70.30 Alcoholic cirrhosis of liver without ascites; Z79.899 Other long term (current) drug therapy; Z88.8 Allergy status to other drugs, medicaments and biological substances; Z91.041 Radiographic dye allergy status

== ENCOUNTER 2024-01-02 21:41 | Emergency (ER) | payer OTHER ==
[~2024-01-02] VITALS: Ht 162.6 cm; Wt 63.6 kg
[2024-01-02 22:18] LABS: BASO # 0.1 10^3/uL (0.0-0.2); BASO % 1.1 % (0.0-1.0); EOS # 0.1 10^3/uL (0.0-0.5); EOS % 2.4 % (0.0-3.0); HEMATOCRIT 36.1 % (36.0-47.0); HEMOGLOBIN 11.9 g/dl (12.0-15.5); LYMPH # 0.9 10^3/uL (1.5-5.0); LYMPH % 19.1 % (24.0-44.0); MEAN CORPUSCULAR HEMOGLOBIN 25.9 pg (27.0-33.0); MEAN CORPUSCULAR VOLUME 78.6 fl (80.0-96.0); MONO # 0.5 10^3/uL (0.0-0.8); MONO % 10.3 % (2.0-8.0); NEUTROPHILS # 3.1 10^3/uL (1.5-8.5); NEUTROPHILS % 66.9 % (36.0-66.0); PLATELET COUNT, AUTOMATED 167 10^3/uL (150-450); RED BLOOD COUNT 4.59 10^6/uL (4.00-5.40); WHITE BLOOD COUNT 4.7 10^3/uL (4.0-10.0)
[2024-01-02 22:51] LABS: LIPASE 57 U/L (12-53)
[2024-01-02 22:52] LABS: ETHYL ALCOHOL (ETHANOL) < 0.003 % (0.000-0.010); HCG, SERUM QUALITATIVE NEGATIVE (NEGATIVE)
[2024-01-02 22:54] LABS: ALBUMIN 3.6 G/DL (3.2-5.2); ALKALINE PHOSPHATASE 278 U/L (35-104); ALT/SGPT 55 U/L (7.0-40); AST/SGOT 85 U/L (<34); BILIRUBIN,DIRECT 2.4 MG/DL (<0.4); BILIRUBIN,TOTAL 3.8 MG/DL (0.3-1.2); BLOOD UREA NITROGEN 6 MG/DL (9-23); CALCIUM LEVEL 9.4 MG/DL (8.5-10.1); CARBON DIOXIDE LEVEL 22 MMOL/L (20-31); CHLORIDE LEVEL 104 MMOL/L (98-107); CREATININE FOR GFR 0.38 MG/DL (0.55-1.30); GLOMERULAR FILTRATION RATE > 60.0 (>60); GLUCOSE, FASTING 104 MG/DL (60-100); POTASSIUM SERUM 3.5 MMOL/L (3.5-5.1); SODIUM LEVEL 136 MMOL/L (136-145); TOTAL PROTEIN 8.2 G/DL (5.7-8.2)
[2024-01-02 23:59] LABS: APPEARANCE, URINE HAZY (CLEAR); BACTERIA, URINE AUTO NEGATIVE (NEGATIVE); BILIRUBIN, URINE AUTO 1+ (NEGATIVE); BLOOD, URINE BLOOD NEGATIVE (NEGATIVE); COLOR, URINE AMBER (YELLOW); GLUCOSE, URINE (UA) AUTO NEGATIVE (NEGATIVE); KETONE, URINE AUTO 1+ mg/dL (NEGATIVE); LEUKOCYTE ESTERASE, URINE AUTO NEGATIVE (NEGATIVE); MUCUS, URINE SMALL (NEGATIVE); NITRITE, URINE AUTO NEGATIVE (NEGATIVE); PROTEIN, URINE AUTO NEGATIVE (NEGATIVE); RBC, URINE AUTO 0 /HPF (0-3); SQUAMOUS EPITHELIAL CELL UR AU 11 /HPF (0-6); WBC, URINE AUTO 4 /HPF (0-3)
[2024-01-03] MEDS ORDERED: MORPHINE 4 MG/ML 1ML VIAL As Ordered ONE (00:23)
[2024-01-03] MEDS ORDERED: ONDANSETRON 4MG 2ML VIAL As Ordered ONE (00:23)
[2024-01-03] MEDS: ONDANSETRON 4MG 2ML VIAL IV ONE ×2 (00:26→12:24)
[2024-01-03] MEDS: MORPHINE 4 MG/ML 1ML VIAL IV ONE ×3 (00:27→04:58)
[2024-01-03] MEDS ORDERED: HOME MED LIST COMPLETE! XX SCH (08:20)
[2024-01-03] MEDS: HYDROMORPHONE HCL 0.5 MG/ 0.5 ML SYRINGE IV PRN (08:56)
[2024-01-03] MEDS: PIPERACILLIN/TAZOBACTAM SOD 4.5 GM in DEXTROSE 5% (D5W) ADV/MINI-BAG 50 ML IV ONE (12:24)
[2024-01-03 13:51] VITALS: BP 98/63; TEMP 97.5; O2SAT 98
== END 2024-01-03 13:53 | disposition short-term general hospital (02) ==
LOC: M ED 21:41 → EDBD 21:41 → M ED 01-03 13:53
DX: K80.50 Calculus of bile duct without cholangitis or cholecystitis without obstruction (principal); K21.9 Gastro-esophageal reflux disease without esophagitis; F41.9 Anxiety disorder, unspecified; K74.60 Unspecified cirrhosis of liver; R16.0 Hepatomegaly, not elsewhere classified; K76.0 Fatty (change of) liver, not elsewhere classified; Z79.899 Other long term (current) drug therapy; Z88.3 Allergy status to other anti-infective agents; Z88.8 Allergy status to other drugs, medicaments and biological substances
CPT/HCPCS: 74176; 74181; 76705; 80048; 80076; 81001; 82077; 83690; 84703; 85025; 93041; 96365; 96375; 96376; 99285; J1171; J2405; J2543

== ENCOUNTER 2024-01-12 23:56 | Inpatient (IN) | payer OTHER ==
[~2024-01-12] VITALS: Ht 162.6 cm; Wt 63.3 kg
[2024-01-13] VITALS (12 sets, daily range): BP systolic 78–135; BP diastolic 32–79; TEMP 97.9–98.7; O2SAT 92–99
[2024-01-13 00:49] LABS: BASO # 0.2 10^3/uL (0.0-0.2); BASO % 2.2 % (0.0-1.0); EOS # 0.4 10^3/uL (0.0-0.5); EOS % 3.5 % (0.0-3.0); HEMATOCRIT 37.6 % (36.0-47.0); LYMPH # 3.9 10^3/uL (1.5-5.0); LYMPH % 37.4 % (24.0-44.0); MEAN CORPUSCULAR HEMOGLOBIN 26.3 pg (27.0-33.0); MEAN CORPUSCULAR HGB CONC 31.9 g/dl (32.0-36.5); MEAN CORPUSCULAR VOLUME 82.5 fl (80.0-96.0); MONO # 0.4 10^3/uL (0.0-0.8); MONO % 3.9 % (2.0-8.0); NEUTROPHILS # 5.5 10^3/uL (1.5-8.5); NEUTROPHILS % 52.5 % (36.0-66.0); PLATELET COUNT, AUTOMATED 510 10^3/uL (150-450); RED BLOOD COUNT 4.56 10^6/uL (4.00-5.40); WHITE BLOOD COUNT 10.5 10^3/uL (4.0-10.0)
[2024-01-13] MEDS ORDERED: MORPHINE 4 MG/ML 1ML VIAL IV ONE (00:55)
[2024-01-13] MEDS ORDERED: ONDANSETRON 4MG 2ML VIAL IV ONE (00:55)
[2024-01-13 01:02] LABS: LIPASE 256 U/L (12-53)
[2024-01-13 01:04] LABS: ALBUMIN 3.2 G/DL (3.2-5.2); ALKALINE PHOSPHATASE 307 U/L (35-104); ALT/SGPT 77 U/L (7.0-40); AMYLASE 244 U/L (30-118); AST/SGOT 172 U/L (<34); BILIRUBIN,DIRECT 0.7 MG/DL (<0.4); BILIRUBIN,TOTAL 1.1 MG/DL (0.3-1.2); BLOOD UREA NITROGEN 6 MG/DL (9-23); CALCIUM LEVEL 8.9 MG/DL (8.5-10.1); CARBON DIOXIDE LEVEL 26 MMOL/L (20-31); CHLORIDE LEVEL 107 MMOL/L (98-107); CREATININE FOR GFR 0.49 MG/DL (0.55-1.30); GLOMERULAR FILTRATION RATE > 60.0 (>60); GLUCOSE, FASTING 90 MG/DL (60-100); POTASSIUM SERUM 3.5 MMOL/L (3.5-5.1); SODIUM LEVEL 144 MMOL/L (136-145); TOTAL PROTEIN 8.1 G/DL (5.7-8.2)
[2024-01-13 01:13] LABS: HCG, SERUM QUALITATIVE NEGATIVE (NEGATIVE)
[2024-01-13] MEDS: NS 1,000 ML IV ONE ×3 (02:41→04:35)
[2024-01-13] MEDS: HALOPERIDOL LACTATE 5MG/ML VIAL IM ONE (02:50)
[2024-01-13] MEDS: MORPHINE 4 MG/ML 1ML VIAL IM STA (02:51)
[2024-01-13] MEDS: PANTOPRAZOLE 40MG VIAL IV ONE (04:46)
[2024-01-13] MEDS ORDERED: HEPARIN SOD (PORCINE) 5000UNITS/ML 1ML VIAL/SYRINGE SC SCH (05:40)
[2024-01-13] MEDS ORDERED: MAALOX 30 ML SUSP *UDC PO PRN (05:40)
[2024-01-13] MEDS ORDERED: MOM 30ML SUSPENSION UDC PO PRN (05:40)
[2024-01-13] MEDS: MORPHINE 4 MG/ML 1ML VIAL IV PRN (06:06)
[2024-01-13] MEDS: ONDANSETRON 4MG 2ML VIAL IV PRN (06:06)
[2024-01-13] MEDS: NS 1,000 ML IV SCH (06:30)
[2024-01-13] MEDS ORDERED: MED REC IN PROGRESS XX SCH (07:25)
[2024-01-13] MEDS ORDERED: LORazepam 2 MG TAB PO PRN (07:30)
[2024-01-13] MEDS: FOLIC ACID 1MG TAB PO SCH (08:27)
[2024-01-13] MEDS: ACETAMINOPHEN 325 MG TAB PO PRN (08:27)
[2024-01-13] MEDS: MULTIVITAMINS/MINERALS THERAP 1 TAB PO SCH (08:27)
[2024-01-13] MEDS: THIAMINE 100 MG TAB PO SCH (08:27)
[2024-01-13] MEDS: LR 1,000 ML IV SCH (08:27)
[2024-01-13] MEDS: SUCRALFATE 1 GM TAB PO SCH (08:27)
[2024-01-13 08:29] LABS: BASO # 0.1 10^3/uL (0.0-0.2); BASO % 1.7 % (0.0-1.0); EOS # 0.3 10^3/uL (0.0-0.5); EOS % 3.9 % (0.0-3.0); HEMATOCRIT 31.8 % (36.0-47.0); HEMOGLOBIN 9.9 g/dl (12.0-15.5); LYMPH % 38.4 % (24.0-44.0); MEAN CORPUSCULAR HEMOGLOBIN 26.5 pg (27.0-33.0); MEAN CORPUSCULAR HGB CONC 31.1 g/dl (32.0-36.5); MEAN CORPUSCULAR VOLUME 85.3 fl (80.0-96.0); MONO # 0.4 10^3/uL (0.0-0.8); MONO % 4.6 % (2.0-8.0); PLATELET COUNT, AUTOMATED 322 10^3/uL (150-450); RED BLOOD COUNT 3.73 10^6/uL (4.00-5.40); WHITE BLOOD COUNT 7.8 10^3/uL (4.0-10.0)
[2024-01-13] MEDS ORDERED: CREO3600 PO (08:56)
[2024-01-13 08:57] LABS: ALBUMIN 2.5 G/DL (3.2-5.2); ALKALINE PHOSPHATASE 222 U/L (35-104); ALT/SGPT 56 U/L (7.0-40); AST/SGOT 129 U/L (<34); BILIRUBIN,TOTAL 0.7 MG/DL (0.3-1.2); BLOOD UREA NITROGEN 5 MG/DL (9-23); CALCIUM LEVEL 6.8 MG/DL (8.5-10.1); CARBON DIOXIDE LEVEL 24 MMOL/L (20-31); CHLORIDE LEVEL 115 MMOL/L (98-107); CREATININE FOR GFR 0.42 MG/DL (0.55-1.30); GLOMERULAR FILTRATION RATE > 60.0 (>60); GLUCOSE, FASTING 73 MG/DL (60-100); MAGNESIUM LEVEL 1.4 MG/DL (1.8-2.4); POTASSIUM SERUM 3.6 MMOL/L (3.5-5.1); SODIUM LEVEL 148 MMOL/L (136-145); TOTAL PROTEIN 5.9 G/DL (5.7-8.2)
[2024-01-13 08:59] LABS: MAGNESIUM LEVEL 1.7 MG/DL (1.8-2.4)
[2024-01-13] MEDS ORDERED: HOME MED LIST COMPLETE! XX SCH (09:00)
[2024-01-13] MEDS ORDERED: LACTULOSE 20GM/30ML SYRUP UDC PO PRN (09:40)
[2024-01-13] MEDS: PREGABALIN 50 MG CAP (LYRICA) PO SCH (10:57)
[2024-01-13] MEDS: MAG SULF 1GM/100ML (MAG RUN) 1 GM in IV 1 EA IV SCH (12:20)
[2024-01-13 12:57] LABS: BLOOD UREA NITROGEN < 5 MG/DL (9-23); CALCIUM LEVEL 7.5 MG/DL (8.5-10.1); CARBON DIOXIDE LEVEL 25 MMOL/L (20-31); CHLORIDE LEVEL 109 MMOL/L (98-107); CREATININE FOR GFR 0.41 MG/DL (0.55-1.30); GLOMERULAR FILTRATION RATE > 60.0 (>60); GLUCOSE, FASTING 68 MG/DL (60-100); POTASSIUM SERUM 3.7 MMOL/L (3.5-5.1); SODIUM LEVEL 144 MMOL/L (136-145)
[2024-01-13] MEDS: CREON-12 CAPSULE (PANCRELIPASE) PO SCH (14:05)
[2024-01-13 15:22] LABS: TRIGLYCERIDES LEVEL 62 MG/DL (<150)
[2024-01-13] MEDS: NS 500 ML IV ONE (15:59)
[2024-01-13] MEDS: MIDODRINE 5 MG TAB PO SCH (16:00)
[2024-01-13] MEDS ORDERED: KETOROLAC 30 MG/ML 1ML VIAL IV PRN (17:20)
[2024-01-13] MEDS: KETOROLAC 30 MG/ML 1ML VIAL IV PRN (17:39)
[2024-01-13] MEDS: MAG SULF 1GM/100ML (MAG RUN) 1 GM in IV 1 EA IV ONE (17:48)
[2024-01-13] MEDS: PANTOPRAZOLE 40MG VIAL IV SCH (20:57)
[2024-01-13] MEDS: HYDROMORPHONE HCL 0.5 MG/ 0.5 ML SYRINGE IV PRN (22:46)
[2024-01-13] MEDS: OXAZEPAM 15MG CAP PO SCH (23:45)
[2024-01-14] VITALS (9 sets, daily range): BP systolic 93–116; BP diastolic 50–74; TEMP 98.4–98.5; O2SAT 94–96
[2024-01-14] MEDS ORDERED: ACETAMINOPHEN 500 MG TAB PO ONE (01:25)
[2024-01-14 05:13] LABS: BASO # 0.1 10^3/uL (0.0-0.2); BASO % 1.5 % (0.0-1.0); EOS # 0.2 10^3/uL (0.0-0.5); HEMOGLOBIN 10.1 g/dl (12.0-15.5); LYMPH # 1.8 10^3/uL (1.5-5.0); LYMPH % 22.3 % (24.0-44.0); MEAN CORPUSCULAR HEMOGLOBIN 26.1 pg (27.0-33.0); MEAN CORPUSCULAR HGB CONC 31.6 g/dl (32.0-36.5); MEAN CORPUSCULAR VOLUME 82.7 fl (80.0-96.0); MONO # 0.6 10^3/uL (0.0-0.8); MONO % 7.7 % (2.0-8.0); NEUTROPHILS # 5.3 10^3/uL (1.5-8.5); NEUTROPHILS % 66.1 % (36.0-66.0); PLATELET COUNT, AUTOMATED 265 10^3/uL (150-450); RED BLOOD COUNT 3.87 10^6/uL (4.00-5.40)
[2024-01-14] MEDS: CIPROFLOXACIN 500MG TABLET PO SCH (05:24)
[2024-01-14 05:29] LABS: INR 1.44; PARTIAL THROMBOPLASTIN TIME 35.1 SECONDS (24.8-34.2); PROTHROMBIN TIME 17.8 SECONDS (12.5-14.5)
[2024-01-14 05:39] LABS: ALBUMIN 2.8 G/DL (3.2-5.2); ALKALINE PHOSPHATASE 255 U/L (35-104); ALT/SGPT 54 U/L (7.0-40); AST/SGOT 107 U/L (<34); BILIRUBIN,DIRECT 0.7 MG/DL (<0.4); BILIRUBIN,TOTAL 1.2 MG/DL (0.3-1.2); BLOOD UREA NITROGEN < 5 MG/DL (9-23); CALCIUM LEVEL 8.3 MG/DL (8.5-10.1); CARBON DIOXIDE LEVEL 27 MMOL/L (20-31); CHLORIDE LEVEL 103 MMOL/L (98-107); GLOMERULAR FILTRATION RATE > 60.0 (>60); GLUCOSE, FASTING 82 MG/DL (60-100); MAGNESIUM LEVEL 1.6 MG/DL (1.8-2.4); POTASSIUM SERUM 3.7 MMOL/L (3.5-5.1); SODIUM LEVEL 135 MMOL/L (136-145); TOTAL PROTEIN 6.8 G/DL (5.7-8.2)
[2024-01-14] MEDS: ENOXAPARIN 40MG/0.4ML SYRINGE (J1650 PER 10MG) SC SCH (09:00)
[2024-01-14] MEDS: MAG SULF 1GM/100ML (MAG RUN) 1 GM in IV 1 EA IV ONE (09:58)
[2024-01-14] MEDS: MIDODRINE 5 MG TAB PO SCH (12:00)
[2024-01-14] MEDS: PERCOCET 5MG/325MG TAB PO PRN ×2 (12:08→17:36)
[2024-01-14] MEDS: LR 1,000 ML IV SCH (14:42)
[2024-01-14] MEDS: HYDROMORPHONE HCL 0.5 MG/ 0.5 ML SYRINGE IV ONE (23:37)
[2024-01-15 03:32] VITALS: BP 109/70; TEMP 98.3; O2SAT 97
[2024-01-15 05:23] LABS: BASO # 0.1 10^3/uL (0.0-0.2); BASO % 1.4 % (0.0-1.0); EOS # 0.3 10^3/uL (0.0-0.5); EOS % 4.9 % (0.0-3.0); HEMATOCRIT 31.9 % (36.0-47.0); HEMOGLOBIN 10.2 g/dl (12.0-15.5); LYMPH # 1.5 10^3/uL (1.5-5.0); LYMPH % 26.3 % (24.0-44.0); MEAN CORPUSCULAR HEMOGLOBIN 26.6 pg (27.0-33.0); MEAN CORPUSCULAR VOLUME 83.3 fl (80.0-96.0); MONO # 0.4 10^3/uL (0.0-0.8); MONO % 6.3 % (2.0-8.0); NEUTROPHILS # 3.4 10^3/uL (1.5-8.5); NEUTROPHILS % 60.7 % (36.0-66.0); PLATELET COUNT, AUTOMATED 199 10^3/uL (150-450); RED BLOOD COUNT 3.83 10^6/uL (4.00-5.40); WHITE BLOOD COUNT 5.6 10^3/uL (4.0-10.0)
[2024-01-15 05:58] LABS: ALBUMIN 2.6 G/DL (3.2-5.2); ALKALINE PHOSPHATASE 241 U/L (35-104); ALT/SGPT 53 U/L (7.0-40); AST/SGOT 97 U/L (<34); BILIRUBIN,DIRECT 0.6 MG/DL (<0.4); BILIRUBIN,TOTAL 0.9 MG/DL (0.3-1.2); BLOOD UREA NITROGEN < 5 MG/DL (9-23); CALCIUM LEVEL 8.4 MG/DL (8.5-10.1); CARBON DIOXIDE LEVEL 27 MMOL/L (20-31); CHLORIDE LEVEL 107 MMOL/L (98-107); CREATININE FOR GFR 0.49 MG/DL (0.55-1.30); GLOMERULAR FILTRATION RATE > 60.0 (>60); GLUCOSE, FASTING 134 MG/DL (60-100); MAGNESIUM LEVEL 1.3 MG/DL (1.8-2.4); POTASSIUM SERUM 3.6 MMOL/L (3.5-5.1); SODIUM LEVEL 140 MMOL/L (136-145); TOTAL PROTEIN 6.5 G/DL (5.7-8.2)
[2024-01-15 07:40] VITALS: BP 111/79; TEMP 98.3; O2SAT 98
[2024-01-15] MEDS: MAG SULF 1GM/100ML (MAG RUN) 1 GM in IV 1 EA IV SCH (08:50)
[2024-01-15] MEDS: PANTOPRAZOLE 40MG TAB (PROTONIX) PO SCH (08:51)
[2024-01-15] MEDS ORDERED: MIDO5TA PO (09:25)
[2024-01-15] MEDS ORDERED: CIPR500T39 PO (09:25)
[2024-01-15] MEDS ORDERED: THIA100TA PO (09:25)
[2024-01-15] MEDS ORDERED: CARV3.12 PO (09:26)
[2024-01-15] MEDS ORDERED: ACAM0.05 PO (09:40)
[2024-01-15] MEDS ORDERED: FLEET ENEMA PR PRN (09:55)
[2024-01-15] MEDS ORDERED: BISACODYL 10MG SUPP PR PRN (09:55)
[2024-01-15 12:09] VITALS: BP 115/76
== END 2024-01-15 13:46 | disposition home or self-care (01) | DRG 439 ==
LOC: M ED 23:56 → EDBD 23:56 → M ED INP 23:57 → M PCU 01-13 22:15 → OBSVTOIN 01-14 15:48
PROVIDERS: ADMIT Student in an Organized Health Care Education/Training Program; ATTEND Student in an Organized Health Care Education/Training Program
DX: K85.20 Alcohol induced acute pancreatitis without necrosis or infection (principal); K76.6 Portal hypertension; E87.0 Hyperosmolality and hypernatremia; K70.30 Alcoholic cirrhosis of liver without ascites; D50.9 Iron deficiency anemia, unspecified; D69.6 Thrombocytopenia, unspecified; F41.9 Anxiety disorder, unspecified; F32.A Depression, unspecified; K70.10 Alcoholic hepatitis without ascites; K59.09 Other constipation; E83.42 Hypomagnesemia; G89.29 Other chronic pain; F10.20 Alcohol dependence, uncomplicated; K29.20 Alcoholic gastritis without bleeding; K21.9 Gastro-esophageal reflux disease without esophagitis; Z79.899 Other long term (current) drug therapy; Z91.041 Radiographic dye allergy status; Z88.8 Allergy status to other drugs, medicaments and biological substances; Z71.41 Alcohol abuse counseling and surveillance of alcoholic

== ENCOUNTER 2024-01-24 06:15 | Emergency (ER) | payer OTHER ==
[~2024-01-24] VITALS: Ht 162.6 cm; Wt 61.4 kg
[~2024-01-24 06:15] MED LIST changes: +ACAM0.05 PO; +CARV3.12 PO; +CREO3600 PO; +MIDO5TA PO
[2024-01-24] MEDS ORDERED: LORazepam 2 MG TAB PO PRN (07:50)
[2024-01-24] MEDS: MULTIVITAMINS/MINERALS THERAP 1 TAB PO SCH (08:01)
[2024-01-24] MEDS: FOLIC ACID 1MG TAB PO SCH (08:01)
[2024-01-24] MEDS: THIAMINE 100 MG TAB PO SCH (08:01)
[2024-01-24] MEDS: PANTOPRAZOLE 40MG VIAL IV ONE (08:01)
[2024-01-24] MEDS: ONDANSETRON 4MG 2ML VIAL IV ONE ×2 (08:31→14:53)
[2024-01-24 08:43] LABS: BASO # 0.1 10^3/uL (0.0-0.2); BASO % 0.8 % (0.0-1.0); EOS # 0.1 10^3/uL (0.0-0.5); EOS % 0.5 % (0.0-3.0); LYMPH % 7.2 % (24.0-44.0); MEAN CORPUSCULAR HEMOGLOBIN 27.2 pg (27.0-33.0); MEAN CORPUSCULAR HGB CONC 32.4 g/dl (32.0-36.5); MEAN CORPUSCULAR VOLUME 83.9 fl (80.0-96.0); MONO # 0.7 10^3/uL (0.0-0.8); MONO % 5.1 % (2.0-8.0); NEUTROPHILS # 12.4 10^3/uL (1.5-8.5); NEUTROPHILS % 85.9 % (36.0-66.0); PLATELET COUNT, AUTOMATED 167 10^3/uL (150-450); RED BLOOD COUNT 4.41 10^6/uL (4.00-5.40); WHITE BLOOD COUNT 14.5 10^3/uL (4.0-10.0)
[2024-01-24 09:08] LABS: ETHYL ALCOHOL (ETHANOL) 0.183 % (0.000-0.010)
[2024-01-24 09:20] LABS: ALKALINE PHOSPHATASE 290 U/L (35-104); ALT/SGPT 82 U/L (7.0-40); AST/SGOT 290 U/L (<34); BILIRUBIN,DIRECT 1.3 MG/DL (<0.4); BILIRUBIN,TOTAL 2.5 MG/DL (0.3-1.2); BLOOD UREA NITROGEN 8 MG/DL (9-23); CALCIUM LEVEL 9.4 MG/DL (8.5-10.1); CARBON DIOXIDE LEVEL 16 MMOL/L (20-31); CHLORIDE LEVEL 95 MMOL/L (98-107); CREATININE FOR GFR 0.54 MG/DL (0.55-1.30); GLOMERULAR FILTRATION RATE > 60.0 (>60); GLUCOSE, FASTING 52 MG/DL (60-100); LIPASE 176 U/L (12-53); POTASSIUM SERUM 4.8 MMOL/L (3.5-5.1); SODIUM LEVEL 136 MMOL/L (136-145)
[2024-01-24 09:24] LABS: INR 1.35
[2024-01-24] MEDS: MORPHINE 4 MG/ML 1ML VIAL IV PRN (11:32)
[2024-01-24 12:56] LABS: BASO # 0.1 10^3/uL (0.0-0.2); BASO % 0.5 % (0.0-1.0); LYMPH # 1.3 10^3/uL (1.5-5.0); LYMPH % 8.1 % (24.0-44.0); MONO % 6.1 % (2.0-8.0); NEUTROPHILS # 13.9 10^3/uL (1.5-8.5); NEUTROPHILS % 84.8 % (36.0-66.0); WHITE BLOOD COUNT 16.5 10^3/uL (4.0-10.0)
[2024-01-24 13:25] LABS: ALBUMIN 3.8 G/DL (3.2-5.2); BILIRUBIN,DIRECT 1.4 MG/DL (<0.4); BILIRUBIN,TOTAL 2.5 MG/DL (0.3-1.2); TOTAL PROTEIN 8.7 G/DL (5.7-8.2)
[2024-01-24] MEDS: LORazepam 2 MG/ML 1ML VIAL IV STA (14:53)
[2024-01-24] MEDS: fentaNYL 100 MCG/2 ML INJECTION IV PRN (18:51)
[2024-01-24] MEDS: NS 1,000 ML IV SCH (18:52)
[2024-01-24 19:45] VITALS: BP 107/61; TEMP 98.2; O2SAT 98
== END 2024-01-24 19:57 | disposition short-term general hospital (02) ==
LOC: M ED 06:15 → EDBD 06:15 → M ED 19:57
DX: K70.10 Alcoholic hepatitis without ascites (principal); K83.1 Obstruction of bile duct; Z79.899 Other long term (current) drug therapy; Z88.8 Allergy status to other drugs, medicaments and biological substances; Z91.041 Radiographic dye allergy status
CPT/HCPCS: 74181; 80048; 80076; 82077; 83690; 85025; 85610; 93041; 96361; 96374; 96375; 96376; 99285; J2060; J2405; J2470; J3010

== ENCOUNTER 2024-03-02 16:05 | Observation (INO) | payer OTHER ==
[~2024-03-02] VITALS: Ht 162.6 cm; Wt 65.6 kg
[2024-03-02] MEDS: NS (Normal Saline) 0.9% 1,000 ML IV ONE ×3 (17:18→18:21)
[2024-03-02 17:30] LABS: BASO # 0.1 10^3/uL (0.0-0.2); BASO % 1.3 % (0.0-1.0); EOS # 0.1 10^3/uL (0.0-0.5); EOS % 1.8 % (0.0-3.0); HEMOGLOBIN 11.8 g/dl (12.0-15.5); LYMPH # 3.2 10^3/uL (1.5-5.0); LYMPH % 44.6 % (24.0-44.0); MEAN CORPUSCULAR HEMOGLOBIN 28.9 pg (27.0-33.0); MEAN CORPUSCULAR HGB CONC 32.8 g/dl (32.0-36.5); MONO # 0.4 10^3/uL (0.0-0.8); MONO % 6.2 % (2.0-8.0); NEUTROPHILS # 3.2 10^3/uL (1.5-8.5); NEUTROPHILS % 45.7 % (36.0-66.0); PLATELET COUNT, AUTOMATED 204 10^3/uL (150-450); RED BLOOD COUNT 4.09 10^6/uL (4.00-5.40); WHITE BLOOD COUNT 7.1 10^3/uL (4.0-10.0)
[2024-03-02 17:45] LABS: INR 1.3; PARTIAL THROMBOPLASTIN TIME 36.1 SECONDS (24.8-34.2); PROTHROMBIN TIME 16.5 SECONDS (12.5-14.5)
[2024-03-02] MEDS: MORPHINE 2 MG/ML 1ML VIAL IV ONE ×2 (17:51→19:47)
[2024-03-02 17:57] LABS: CK-MB VALUE MASS < 1.0 NG/ML (<3.6); LIPASE 109 U/L (12-53)
[2024-03-02 17:58] LABS: AMYLASE 117 U/L (30-118); CPK CREATINE PHOSPHOKINASE 44 U/L (34-145); MB/CK RELATIVE INDEX 2.27 (< OR =4)
[2024-03-02 17:59] LABS: ALBUMIN 3.2 G/DL (3.2-5.2); ALKALINE PHOSPHATASE 193 U/L (35-104); ALT/SGPT 39 U/L (7.0-40); AST/SGOT 84 U/L (<34); BILIRUBIN,DIRECT 0.4 MG/DL (<0.4); BILIRUBIN,TOTAL 0.7 MG/DL (0.3-1.2); BLOOD UREA NITROGEN 8 MG/DL (9-23); CALCIUM LEVEL 8.5 MG/DL (8.5-10.1); CARBON DIOXIDE LEVEL 27 MMOL/L (20-31); CHLORIDE LEVEL 113 MMOL/L (98-107); CREATININE FOR GFR 0.48 MG/DL (0.55-1.30); GLOMERULAR FILTRATION RATE > 60.0 (>60); GLUCOSE, FASTING 97 MG/DL (60-100); SALICYLATE LEVEL < 3.0 MG/DL (<30); SODIUM LEVEL 151 MMOL/L (136-145); TOTAL PROTEIN 6.9 G/DL (5.7-8.2)
[2024-03-02] MEDS: ONDANSETRON 4MG 2ML VIAL IV ONE (18:21)
[2024-03-02 18:28] LABS: ETHYL ALCOHOL (ETHANOL) 0.454 % (0.000-0.010)
[2024-03-02 18:35] LABS: CK-MB VALUE MASS < 1.0 NG/ML (<3.6); CPK CREATINE PHOSPHOKINASE 38 U/L (34-145); MB/CK RELATIVE INDEX 2.63 (< OR =4)
[2024-03-02] MEDS: KCL 10MEQ/100ML SWI (KRUN) 10 MEQ in IV 1 EA IV ONE ×2 (18:51→19:57)
[2024-03-02] MEDS: PANTOPRAZOLE 40MG VIAL IV ONE (18:51)
[2024-03-02 18:55] LABS: MAGNESIUM LEVEL 1.6 MG/DL (1.8-2.4)
[2024-03-02 19:04] LABS: AMPHETAMINES LEVEL URINE NEGATIVE (NEGATIVE); BARBITURATES URINE NEGATIVE (NEGATIVE); BENZODIAZEPINES URINE NEGATIVE (NEGATIVE); CANNABINOIDS URINE NEGATIVE (NEGATIVE); COCAINE METABOLITE URINE NEGATIVE (NEGATIVE); PHENCYCLIDINE URINE NEGATIVE (NEGATIVE)
[2024-03-02 19:05] LABS: METHADONE URINE NEGATIVE (NEGATIVE); OPIATES URINE POSITIVE (NEGATIVE)
[2024-03-02] MEDS ORDERED: EQL50TAB2 PO (19:20)
[2024-03-02] MEDS ORDERED: HOME MED LIST COMPLETE! XX SCH (19:25)
[2024-03-02] MEDS: THIAMINE 100 MG TAB PO SCH (21:00)
[2024-03-02] MEDS: KETOROLAC 30 MG/ML 1ML VIAL IV PRN (21:56)
[2024-03-02] MEDS: ONDANSETRON 4MG 2ML VIAL IV PRN (21:57)
[2024-03-02 22:00] LABS: TRIGLYCERIDES LEVEL 103 MG/DL (<150)
[2024-03-02 22:03] LABS: C REACTIVE PROTEIN QUANTITATIV < 0.50 MG/DL (<1.0)
[2024-03-03] VITALS (12 sets, daily range): BP systolic 116–127; BP diastolic 73–81; TEMP 97.9–98.2; O2SAT 94–97
[2024-03-03] MEDS: LR 1,000 ML IV SCH (01:30)
[2024-03-03] MEDS: ONDANSETRON 4MG 2ML VIAL IV ONE (02:18)
[2024-03-03] MEDS: LORazepam 2 MG TAB PO PRN (06:32)
[2024-03-03 07:56] LABS: HEMATOCRIT 29.4 % (36.0-47.0); MEAN CORPUSCULAR HEMOGLOBIN 28.5 pg (27.0-33.0); MEAN CORPUSCULAR HGB CONC 32.3 g/dl (32.0-36.5); MEAN CORPUSCULAR VOLUME 88.3 fl (80.0-96.0); PLATELET COUNT, AUTOMATED 134 10^3/uL (150-450); RED BLOOD COUNT 3.33 10^6/uL (4.00-5.40); WHITE BLOOD COUNT 5.1 10^3/uL (4.0-10.0)
[2024-03-03 07:58] LABS: HEMOGLOBIN 9.5 g/dl (12.0-15.5)
[2024-03-03] MEDS: CREON-12 CAPSULE (PANCRELIPASE) PO SCH (08:00)
[2024-03-03 08:02] LABS: ERYTHROCYTE SEDIMENTATION RATE 2 mm/hr (0-20)
[2024-03-03 08:19] LABS: C REACTIVE PROTEIN QUANTITATIV < 0.50 MG/DL (<1.0)
[2024-03-03 08:27] LABS: THYROID STIMULATING HORMONE 1.171 uIU/ML (0.55-4.78)
[2024-03-03] MEDS: PANTOPRAZOLE 40MG VIAL IV SCH ×2 (08:46→20:49)
[2024-03-03] MEDS: LACTULOSE 20GM/30ML SYRUP UDC PO SCH (08:46)
[2024-03-03] MEDS: MULTIVITAMINS/MINERALS THERAP 1 TAB PO SCH (08:47)
[2024-03-03] MEDS: MAGNESIUM OXIDE 400MG TAB (MAG-OX) PO SCH (08:47)
[2024-03-03] MEDS: PREGABALIN 50 MG CAP (LYRICA) PO SCH (08:47)
[2024-03-03] MEDS: FOLIC ACID 1MG TAB PO SCH (08:47)
[2024-03-03] MEDS: SUCRALFATE 1 GM TAB PO SCH (08:47)
[2024-03-03] MEDS: ENOXAPARIN 40MG/0.4ML SYRINGE (J1650 PER 10MG) SC SCH (08:47)
[2024-03-03 09:06] LABS: PROCALCITONIN <0.04 ng/ml
[2024-03-03 09:11] LABS: ALBUMIN 2.6 G/DL (3.2-5.2); ALKALINE PHOSPHATASE 148 U/L (35-104); ALT/SGPT 31 U/L (7.0-40); AST/SGOT 75 U/L (<34); BILIRUBIN,TOTAL 0.9 MG/DL (0.3-1.2); BLOOD UREA NITROGEN 6 MG/DL (9-23); CALCIUM LEVEL 7.1 MG/DL (8.5-10.1); CARBON DIOXIDE LEVEL 25 MMOL/L (20-31); CHLORIDE LEVEL 107 MMOL/L (98-107); CREATININE FOR GFR 0.41 MG/DL (0.55-1.30); GLOMERULAR FILTRATION RATE > 60.0 (>60); GLUCOSE, FASTING 74 MG/DL (60-100); MAGNESIUM LEVEL 1.1 MG/DL (1.8-2.4); PHOSPHORUS LEVEL 3.1 MG/DL (2.5-4.9); POTASSIUM SERUM 3.1 MMOL/L (3.5-5.1); SODIUM LEVEL 143 MMOL/L (136-145); TOTAL PROTEIN 5.9 G/DL (5.7-8.2)
[2024-03-03] MEDS: THIAMINE 200MG 2ML VIAL IV ONE (10:35)
[2024-03-03] MEDS: NEPHRO-VIT TAB (NEPHROCAPS) PO SCH (10:35)
[2024-03-03] MEDS: KCL 20MEQ IN D5W 1000ML 1,000 ML IV SCH (10:35)
[2024-03-03] MEDS: MAG SULF 1GM/100ML (MAG RUN) 1 GM in IV 1 EA IV ONE ×3 (11:38→20:56)
[2024-03-03] MEDS ORDERED: HYDROMORPHONE HCL 0.5 MG/ 0.5 ML SYRINGE IV PRN ×2 (12:00→18:10)
[2024-03-03] MEDS: HYDROMORPHONE HCL 0.5 MG/ 0.5 ML SYRINGE IV PRN ×2 (15:40→18:53)
[2024-03-03 18:37] LABS: HEMATOCRIT 35.8 % (36.0-47.0); HEMOGLOBIN 12.1 g/dl (12.0-15.5); MEAN CORPUSCULAR HEMOGLOBIN 29.2 pg (27.0-33.0); MEAN CORPUSCULAR HGB CONC 33.8 g/dl (32.0-36.5); MEAN CORPUSCULAR VOLUME 86.3 fl (80.0-96.0); PLATELET COUNT, AUTOMATED 141 10^3/uL (150-450); RED BLOOD COUNT 4.15 10^6/uL (4.00-5.40); WHITE BLOOD COUNT 4.9 10^3/uL (4.0-10.0)
[2024-03-03 19:03] LABS: BLOOD UREA NITROGEN < 5 MG/DL (9-23); CALCIUM LEVEL 7.9 MG/DL (8.5-10.1); CARBON DIOXIDE LEVEL 24 MMOL/L (20-31); CHLORIDE LEVEL 102 MMOL/L (98-107); CREATININE FOR GFR 0.41 MG/DL (0.55-1.30); GLOMERULAR FILTRATION RATE > 60.0 (>60); GLUCOSE, FASTING 93 MG/DL (60-100); MAGNESIUM LEVEL 1.7 MG/DL (1.8-2.4); POTASSIUM SERUM 3.5 MMOL/L (3.5-5.1); SODIUM LEVEL 140 MMOL/L (136-145)
[2024-03-03 19:28] LABS: ETHYL ALCOHOL (ETHANOL) 0.014 % (0.000-0.010)
[2024-03-03] MEDS: D5W/0.9% SODIUM CHLORIDE 1,000 ML IV SCH (22:16)
[2024-03-03] MEDS: THIAMINE INJection 500 MG in NS 100 ML IV SCH (22:17)
[2024-03-04] VITALS (28 sets, daily range): BP systolic 117–130; BP diastolic 73–80; TEMP 97.8–98.6; O2SAT 92–98
[2024-03-04 11:29] LABS: HEMATOCRIT 31.5 % (36.0-47.0); HEMOGLOBIN 10.5 g/dl (12.0-15.5); MEAN CORPUSCULAR HEMOGLOBIN 28.8 pg (27.0-33.0); MEAN CORPUSCULAR HGB CONC 33.3 g/dl (32.0-36.5); MEAN CORPUSCULAR VOLUME 86.3 fl (80.0-96.0); PLATELET COUNT, AUTOMATED 116 10^3/uL (150-450); RED BLOOD COUNT 3.65 10^6/uL (4.00-5.40); WHITE BLOOD COUNT 4.1 10^3/uL (4.0-10.0)
[2024-03-04 12:07] LABS: ALBUMIN 2.9 G/DL (3.2-5.2); ALKALINE PHOSPHATASE 169 U/L (35-104); ALT/SGPT 39 U/L (7.0-40); AST/SGOT 98 U/L (<34); BILIRUBIN,DIRECT 0.5 MG/DL (<0.4); BILIRUBIN,TOTAL 1.3 MG/DL (0.3-1.2); BLOOD UREA NITROGEN < 5 MG/DL (9-23); CALCIUM LEVEL 8.1 MG/DL (8.5-10.1); CARBON DIOXIDE LEVEL 27 MMOL/L (20-31); CHLORIDE LEVEL 106 MMOL/L (98-107); CREATININE FOR GFR 0.43 MG/DL (0.55-1.30); GLOMERULAR FILTRATION RATE > 60.0 (>60); GLUCOSE, FASTING 117 MG/DL (60-100); MAGNESIUM LEVEL 1.7 MG/DL (1.8-2.4); POTASSIUM SERUM 3.4 MMOL/L (3.5-5.1); SODIUM LEVEL 143 MMOL/L (136-145); TOTAL PROTEIN 6.2 G/DL (5.7-8.2)
[2024-03-05] VITALS (19 sets, daily range): BP systolic 97–109; BP diastolic 60–64; TEMP 97.9–98; O2SAT 91–96
[2024-03-05 06:17] LABS: HEMATOCRIT 29.2 % (36.0-47.0); HEMOGLOBIN 9.8 g/dl (12.0-15.5); MEAN CORPUSCULAR HEMOGLOBIN 29.3 pg (27.0-33.0); MEAN CORPUSCULAR HGB CONC 33.6 g/dl (32.0-36.5); MEAN CORPUSCULAR VOLUME 87.2 fl (80.0-96.0); PLATELET COUNT, AUTOMATED 110 10^3/uL (150-450); RED BLOOD COUNT 3.35 10^6/uL (4.00-5.40); WHITE BLOOD COUNT 4.4 10^3/uL (4.0-10.0)
[2024-03-05 06:44] LABS: ALBUMIN 2.8 G/DL (3.2-5.2); ALKALINE PHOSPHATASE 165 U/L (35-104); ALT/SGPT 41 U/L (7.0-40); AST/SGOT 97 U/L (<34); BILIRUBIN,DIRECT 0.5 MG/DL (<0.4); BILIRUBIN,TOTAL 1.1 MG/DL (0.3-1.2); BLOOD UREA NITROGEN < 5 MG/DL (9-23); CALCIUM LEVEL 8.4 MG/DL (8.5-10.1); CARBON DIOXIDE LEVEL 28 MMOL/L (20-31); CHLORIDE LEVEL 100 MMOL/L (98-107); CREATININE FOR GFR 0.48 MG/DL (0.55-1.30); GLOMERULAR FILTRATION RATE > 60.0 (>60); GLUCOSE, FASTING 119 MG/DL (60-100); MAGNESIUM LEVEL 1.5 MG/DL (1.8-2.4); POTASSIUM SERUM 3.4 MMOL/L (3.5-5.1); SODIUM LEVEL 136 MMOL/L (136-145); TOTAL PROTEIN 6.2 G/DL (5.7-8.2)
[2024-03-05] MEDS: THIAMINE 100 MG TAB PO SCH (08:21)
[2024-03-05] MEDS: POTASSIUM CHLORIDE 10MEQ SR TABLET PO ONE (12:36)
[2024-03-05] MEDS: HYDROmorphone 2 MG TAB PO SCH (12:37)
[2024-03-05] MEDS: MAG SULF 1GM/100ML (MAG RUN) 1 GM in IV 1 EA IV SCH (12:38)
[2024-03-05 14:54] LABS: HEMATOCRIT 29.8 % (36.0-47.0); HEMOGLOBIN 9.9 g/dl (12.0-15.5); MEAN CORPUSCULAR HEMOGLOBIN 29.2 pg (27.0-33.0); MEAN CORPUSCULAR HGB CONC 33.2 g/dl (32.0-36.5); MEAN CORPUSCULAR VOLUME 87.9 fl (80.0-96.0); PLATELET COUNT, AUTOMATED 109 10^3/uL (150-450); RED BLOOD COUNT 3.39 10^6/uL (4.00-5.40)
[2024-03-05] MEDS ORDERED: DILA2TAB6 PO (16:28)
[2024-03-05] MEDS ORDERED: THIA100TA PO (16:28)
[2024-03-05] MEDS ORDERED: NARC1SPR NARES (16:29)
== END 2024-03-05 17:44 | disposition home or self-care (01) ==
LOC: M ED 16:05 → EDBD 16:05 → M ED INP 16:06 → M PCU 03-03 15:24
PROVIDERS: ADMIT Student in an Organized Health Care Education/Training Program; ATTEND Student in an Organized Health Care Education/Training Program
DX: K85.20 Alcohol induced acute pancreatitis without necrosis or infection (principal); K86.0 Alcohol-induced chronic pancreatitis; K29.20 Alcoholic gastritis without bleeding; F10.229 Alcohol dependence with intoxication, unspecified; E87.20 Acidosis, unspecified; E83.42 Hypomagnesemia; D69.6 Thrombocytopenia, unspecified; R10.9 Unspecified abdominal pain; D50.9 Iron deficiency anemia, unspecified; R11.10 Vomiting, unspecified; E16.2 Hypoglycemia, unspecified; R63.8 Other symptoms and signs concerning food and fluid intake; I85.10 Secondary esophageal varices without bleeding; Z87.19 Personal history of other diseases of the digestive system; K74.69 Other cirrhosis of liver; F41.9 Anxiety disorder, unspecified; F32.A Depression, unspecified; K21.9 Gastro-esophageal reflux disease without esophagitis; Z90.49 Acquired absence of other specified parts of digestive tract; Z98.51 Tubal ligation status; Z98.890 Other specified postprocedural states; Z91.041 Radiographic dye allergy status; Z88.8 Allergy status to other drugs, medicaments and biological substances; Z79.899 Other long term (current) drug therapy
CPT/HCPCS: 36415; 71045; 74176; 74181; 76705; 80047; 80048; 80053; 80076; 80143; 80307; 81001; 82077; 82150; 82550; 82553; 83605; 83690; 83735; 84100; 84145; 84443; 84478; 84484; 85025; 85027; 85610; 85652; 85730; 86140; 87040; 93005; 93041; 96361; 96365; 96366; 96368; 96372; 96375; 96376; 99285; J1171; J1650; J1885; J2405; J2470; J3411; J3475

== ENCOUNTER 2024-03-19 01:17 | Emergency (ER) | payer OTHER ==
[~2024-03-19] VITALS: Ht 162.6 cm; Wt 65.0 kg
[~2024-03-19 01:17] MED LIST changes: +DILA2TAB6 PO; +EQL50TAB2 PO; +NARC1SPR NARES
[2024-03-19 08:16] VITALS: BP 140/95; TEMP 98; O2SAT 97
== END 2024-03-19 09:50 | disposition left against medical advice (07) ==
LOC: EDBD 01:17 → M ED 01:17
DX: Z53.21 Procedure and treatment not carried out due to patient leaving prior to being seen by health care provider (principal)

== ENCOUNTER 2024-03-22 22:32 | Emergency (ER) | payer OTHER ==
[~2024-03-22] VITALS: Ht 162.6 cm; Wt 61.4 kg
[2024-03-22 22:49] VITALS: TEMP 98.1; O2SAT 99
[2024-03-22 23:09] VITALS: BP 138/90
== END 2024-03-23 00:56 | disposition home or self-care (01) ==
LOC: M ED 22:32
DX: F32.A Depression, unspecified (principal); F31.9 Bipolar disorder, unspecified; F10.10 Alcohol abuse, uncomplicated; K21.9 Gastro-esophageal reflux disease without esophagitis; K51.90 Ulcerative colitis, unspecified, without complications; Z91.041 Radiographic dye allergy status; Z91.048 Other nonmedicinal substance allergy status; Z79.899 Other long term (current) drug therapy

== ENCOUNTER 2024-03-23 17:31 | Emergency (ER) | payer OTHER ==
[~2024-03-23] VITALS: Ht 157.5 cm; Wt 49.0 kg
[2024-03-23 18:51] LABS: HEMATOCRIT 36.1 % (36.0-47.0); HEMOGLOBIN 12.5 g/dl (12.0-15.5); MEAN CORPUSCULAR HGB CONC 34.6 g/dl (32.0-36.5); MEAN CORPUSCULAR VOLUME 86.6 fl (80.0-96.0); PLATELET COUNT, AUTOMATED 176 10^3/uL (150-450); RED BLOOD COUNT 4.17 10^6/uL (4.00-5.40); WHITE BLOOD COUNT 11.4 10^3/uL (4.0-10.0)
[2024-03-23 19:23] LABS: SALICYLATE LEVEL < 3.0 MG/DL (<30)
[2024-03-23 19:33] LABS: AMPHETAMINES LEVEL URINE NEGATIVE (NEGATIVE); BARBITURATES URINE NEGATIVE (NEGATIVE); BENZODIAZEPINES URINE NEGATIVE (NEGATIVE); CANNABINOIDS URINE NEGATIVE (NEGATIVE); COCAINE METABOLITE URINE NEGATIVE (NEGATIVE); METHADONE URINE NEGATIVE (NEGATIVE); OPIATES URINE NEGATIVE (NEGATIVE); PHENCYCLIDINE URINE NEGATIVE (NEGATIVE)
[2024-03-23 19:41] LABS: ALBUMIN 3.8 G/DL (3.2-5.2); ALKALINE PHOSPHATASE 239 U/L (35-104); ALT/SGPT 67 U/L (7.0-40); AST/SGOT 200 U/L (<34); BILIRUBIN,DIRECT 0.5 MG/DL (<0.4); BILIRUBIN,TOTAL 1.1 MG/DL (0.3-1.2); BLOOD UREA NITROGEN 7 MG/DL (9-23); CALCIUM LEVEL 9.6 MG/DL (8.5-10.1); CARBON DIOXIDE LEVEL 21 MMOL/L (20-31); CHLORIDE LEVEL 107 MMOL/L (98-107); CREATININE FOR GFR 0.41 MG/DL (0.55-1.30); ETHYL ALCOHOL (ETHANOL) 0.388 % (0.000-0.010); GLOMERULAR FILTRATION RATE > 60.0 (>60); GLUCOSE, FASTING 115 MG/DL (60-100); POTASSIUM SERUM 4.4 MMOL/L (3.5-5.1); SODIUM LEVEL 145 MMOL/L (136-145); THYROID STIMULATING HORMONE 3.559 uIU/ML (0.55-4.78); TOTAL PROTEIN 8.5 G/DL (5.7-8.2)
[2024-03-23 19:46] LABS: CHOLESTEROL LEVEL 262 MG/DL (<200); CHOLESTEROL RISK RATIO 4.54 (<5); HDL CHOLESTEROL 57.7 MG/DL (>40); LDL CHOLESTEROL 183.1 MG/DL (<100); NON-HDL-C 204.3 MG/DL; TRIGLYCERIDES LEVEL 106 MG/DL (<150)
[2024-03-23 19:48] LABS: LIPASE 226 U/L (12-53)
[2024-03-23] MEDS ORDERED: MORPHINE 2 MG/ML 1ML VIAL IV ONE (20:05)
[2024-03-23] MEDS ORDERED: NS (Normal Saline) 0.9% 1,000 ML IV ONE (20:05)
[2024-03-23 20:30] LABS: HCG, SERUM QUALITATIVE NEGATIVE (NEGATIVE)
[2024-03-23] MEDS ORDERED: MORPHINE 4 MG/ML 1ML VIAL IV ONE (20:40)
[2024-03-23] MEDS: MORPHINE 4 MG/ML 1ML VIAL IM ONE (20:56)
[2024-03-23] MEDS ORDERED: READI-CAT 2 As Ordered ONE (21:27)
[2024-03-23] MEDS: READI-CAT 2 PO SCH (21:33)
[2024-03-23 23:10] VITALS: BP 148/76; TEMP 98; O2SAT 98
[2024-03-23] MEDS: PERCOCET 5MG/325MG TAB PO ONE (23:41)
[2024-03-24] MEDS: ONDANSETRON 4MG ORAL DISINTEGRATING TAB PO ONE (00:45)
[2024-03-24] MEDS ORDERED: B-1100TA2 PO (09:48)
[2024-03-24] MEDS ORDERED: HYDR2TAB2 PO (09:48)
[2024-03-24] MEDS ORDERED: NARC1SPR (09:50)
== END 2024-03-24 01:16 | disposition left against medical advice (07) ==
LOC: M ED 17:31 → EDBD 17:31 → M ED 03-24 01:16
DX: R10.13 Epigastric pain (principal); Z53.9 Procedure and treatment not carried out, unspecified reason; K80.20 Calculus of gallbladder without cholecystitis without obstruction; K86.1 Other chronic pancreatitis; K51.90 Ulcerative colitis, unspecified, without complications; F17.200 Nicotine dependence, unspecified, uncomplicated; Z79.899 Other long term (current) drug therapy; Z91.041 Radiographic dye allergy status; Z88.8 Allergy status to other drugs, medicaments and biological substances

== ENCOUNTER 2024-03-24 01:22 | Observation (INO) | payer OTHER ==
[~2024-03-24] VITALS: Ht 162.6 cm; Wt 62.5 kg
[2024-03-24] MEDS: ONDANSETRON 4MG 2ML VIAL IV ONE (06:16)
[2024-03-24] MEDS: NS (Normal Saline) 0.9% 1,000 ML IV ONE (06:16)
[2024-03-24] MEDS: LORazepam 2 MG/ML 1ML VIAL IV STA (06:16)
[2024-03-24] MEDS: MORPHINE 4 MG/ML 1ML VIAL IV PRN (06:17)
[2024-03-24 06:21] LABS: BASO # 0.1 10^3/uL (0.0-0.2); BASO % 0.8 % (0.0-1.0); EOS # 0.2 10^3/uL (0.0-0.5); EOS % 2.1 % (0.0-3.0); HEMATOCRIT 35.8 % (36.0-47.0); LYMPH # 1.9 10^3/uL (1.5-5.0); LYMPH % 25.5 % (24.0-44.0); MEAN CORPUSCULAR HEMOGLOBIN 28.8 pg (27.0-33.0); MEAN CORPUSCULAR HGB CONC 33.5 g/dl (32.0-36.5); MEAN CORPUSCULAR VOLUME 86.1 fl (80.0-96.0); MONO # 0.5 10^3/uL (0.0-0.8); NEUTROPHILS # 4.9 10^3/uL (1.5-8.5); NEUTROPHILS % 65.2 % (36.0-66.0); PLATELET COUNT, AUTOMATED 116 10^3/uL (150-450); RED BLOOD COUNT 4.16 10^6/uL (4.00-5.40); WHITE BLOOD COUNT 7.5 10^3/uL (4.0-10.0)
[2024-03-24 06:43] LABS: LIPASE 180 U/L (12-53)
[2024-03-24 06:56] LABS: ALBUMIN 4.1 G/DL (3.2-5.2); ALKALINE PHOSPHATASE 232 U/L (35-104); ALT/SGPT 81 U/L (7.0-40); AST/SGOT 205 U/L (<34); BILIRUBIN,DIRECT 0.6 MG/DL (<0.4); BILIRUBIN,TOTAL 1.3 MG/DL (0.3-1.2); BLOOD UREA NITROGEN 9 MG/DL (9-23); CALCIUM LEVEL 9.7 MG/DL (8.5-10.1); CARBON DIOXIDE LEVEL 23 MMOL/L (20-31); CHLORIDE LEVEL 100 MMOL/L (98-107); GLOMERULAR FILTRATION RATE > 60.0 (>60); GLUCOSE, FASTING 88 MG/DL (60-100); POTASSIUM SERUM 3.4 MMOL/L (3.5-5.1); SODIUM LEVEL 140 MMOL/L (136-145); TOTAL PROTEIN 8.7 G/DL (5.7-8.2)
[2024-03-24] MEDS ORDERED: HYDR2TAB2 PO (09:48)
[2024-03-24] MEDS ORDERED: B-1100TA2 PO (09:48)
[2024-03-24] MEDS ORDERED: NARC1SPR (09:50)
[2024-03-24] MEDS ORDERED: HOME MED LIST COMPLETE! XX SCH (09:55)
[2024-03-24] MEDS ORDERED: ACETAMINOPHEN 325 MG TAB PO PRN (10:40)
[2024-03-24] MEDS ORDERED: MAALOX 30 ML SUSP *UDC PO PRN (10:40)
[2024-03-24] MEDS ORDERED: MOM 30ML SUSPENSION UDC PO PRN (10:40)
[2024-03-24 11:14] LABS: MAGNESIUM LEVEL 1.2 MG/DL (1.8-2.4)
[2024-03-24] MEDS: OXAZEPAM 10MG CAP PO SCH (11:34)
[2024-03-24] MEDS: NS (Normal Saline) 0.9% 1,000 ML IV SCH (11:34)
[2024-03-24] MEDS: MULTIVITAMINS/MINERALS THERAP 1 TAB PO SCH (11:35)
[2024-03-24] MEDS: ENOXAPARIN 40MG/0.4ML SYRINGE (J1650 PER 10MG) SC SCH (11:35)
[2024-03-24] MEDS: THIAMINE 100 MG TAB PO SCH (11:35)
[2024-03-24] MEDS: FOLIC ACID 1MG TAB PO SCH (11:35)
[2024-03-24 12:08] VITALS: BP 115/74
[2024-03-24 12:20] VITALS: BP 115/74; TEMP 97.7; O2SAT 99
[2024-03-24] MEDS ORDERED: MORPHINE 2 MG/ML 1ML VIAL IV PRN (12:20)
[2024-03-24 14:30] VITALS: BP 114/75
[2024-03-24] MEDS: MORPHINE 2 MG/ML 1ML VIAL IV PRN (14:33)
[2024-03-24] MEDS: LORazepam 2 MG TAB PO PRN (14:35)
[2024-03-24] MEDS: MAGNESIUM OXIDE 400MG TAB (MAG-OX) PO SCH (14:44)
[2024-03-24] MEDS: SUCRALFATE 1 GM TAB PO SCH (14:45)
[2024-03-24] MEDS: PREGABALIN 50 MG CAP (LYRICA) PO SCH (14:45)
[2024-03-24] MEDS: MAG SULF 1GM/100ML (MAG RUN) 1 GM in IV 1 EA IV SCH (16:20)
[2024-03-24] MEDS: LACTULOSE 20GM/30ML SYRUP UDC PO SCH (16:21)
[2024-03-24 17:00] VITALS: BP 110/76
[2024-03-24] MEDS: CREON-12 CAPSULE (PANCRELIPASE) PO SCH (17:38)
[2024-03-24] MEDS: CREON-24 CAPSULE (PANCRELIPASE) PO SCH (17:38)
[2024-03-24] MEDS: HEPARIN SOD (PORCINE) 5000UNITS/ML 1ML VIAL/SYRINGE SC SCH (17:39)
[2024-03-24 19:40] VITALS: BP 121/84; TEMP 97.5; O2SAT 98
[2024-03-24] MEDS: KCL 10MEQ/100ML SWI (KRUN) 10 MEQ in IV 1 EA IV SCH (21:09)
[2024-03-24] MEDS: PANTOPRAZOLE 40MG TAB (PROTONIX) PO SCH (21:10)
[2024-03-24] MEDS: POTASSIUM CHLORIDE 10MEQ SR TABLET PO ONE (22:12)
[2024-03-25 03:57] VITALS: BP 107/68; TEMP 97.9; O2SAT 95
[2024-03-25 08:28] LABS: BLOOD UREA NITROGEN < 5 MG/DL (9-23); CALCIUM LEVEL 8.1 MG/DL (8.5-10.1); CARBON DIOXIDE LEVEL 27 MMOL/L (20-31); CHLORIDE LEVEL 105 MMOL/L (98-107); CREATININE FOR GFR 0.46 MG/DL (0.55-1.30); GLOMERULAR FILTRATION RATE > 60.0 (>60); GLUCOSE, FASTING 104 MG/DL (60-100); MAGNESIUM LEVEL 1.7 MG/DL (1.8-2.4); POTASSIUM SERUM 3.6 MMOL/L (3.5-5.1); SODIUM LEVEL 142 MMOL/L (136-145)
[2024-03-25 11:59] VITALS: BP 103/68
[2024-03-25 12:00] VITALS: BP 103/68; TEMP 97.9; O2SAT 98
[2024-03-25] MEDS ORDERED: MORPHINE 2 MG/ML 1ML VIAL IV PRN (12:10)
[2024-03-25] MEDS: MORPHINE 2 MG/ML 1ML VIAL IV PRN (12:25)
[2024-03-25] MEDS: ONDANSETRON 4MG 2ML VIAL IV PRN (13:49)
[2024-03-25] MEDS: MAG SULF 1GM/100ML (MAG RUN) 1 GM in IV 1 EA IV ONE (13:52)
[2024-03-25 20:00] VITALS: BP 113/69; TEMP 97.9; O2SAT 90
[2024-03-26 04:00] VITALS: BP 101/76; TEMP 97.9; O2SAT 94
[2024-03-26 06:52] LABS: BLOOD UREA NITROGEN < 5 MG/DL (9-23); CALCIUM LEVEL 8.2 MG/DL (8.5-10.1); CARBON DIOXIDE LEVEL 29 MMOL/L (20-31); CHLORIDE LEVEL 102 MMOL/L (98-107); CREATININE FOR GFR 0.46 MG/DL (0.55-1.30); GLOMERULAR FILTRATION RATE > 60.0 (>60); GLUCOSE, FASTING 108 MG/DL (60-100); MAGNESIUM LEVEL 1.6 MG/DL (1.8-2.4); SODIUM LEVEL 138 MMOL/L (136-145)
[2024-03-26] MEDS: MAG SULF 1GM/100ML (MAG RUN) 1 GM in IV 1 EA IV SCH (08:12)
[2024-03-26] MEDS: MAGNESIUM OXIDE 400MG TAB (MAG-OX) PO SCH (08:13)
[2024-03-26] MEDS: POTASSIUM CHLORIDE 10MEQ SR TABLET PO SCH (08:13)
[2024-03-26 12:00] VITALS: BP 99/74; TEMP 97.7; O2SAT 100
[2024-03-26 19:02] LABS: BLOOD UREA NITROGEN < 5 MG/DL (9-23); CALCIUM LEVEL 8.4 MG/DL (8.5-10.1); CARBON DIOXIDE LEVEL 27 MMOL/L (20-31); CHLORIDE LEVEL 104 MMOL/L (98-107); CREATININE FOR GFR 0.54 MG/DL (0.55-1.30); GLOMERULAR FILTRATION RATE > 60.0 (>60); GLUCOSE, FASTING 110 MG/DL (60-100); POTASSIUM SERUM 3.8 MMOL/L (3.5-5.1); SODIUM LEVEL 138 MMOL/L (136-145)
[2024-03-26 20:00] VITALS: BP 100/73; TEMP 97.5; O2SAT 97
[2024-03-27 01:46] LABS: ALBUMIN 3.1 G/DL (3.2-5.2); BILIRUBIN,DIRECT 0.4 MG/DL (<0.4); BILIRUBIN,TOTAL 0.8 MG/DL (0.3-1.2); MAGNESIUM LEVEL 1.7 MG/DL (1.8-2.4); TOTAL PROTEIN 6.9 G/DL (5.7-8.2)
[2024-03-27 04:00] VITALS: BP 95/57; TEMP 97.3; O2SAT 95
[2024-03-27] MEDS: LACTULOSE 20GM/30ML SYRUP UDC PO SCH (05:38)
[2024-03-27 07:23] LABS: BLOOD UREA NITROGEN < 5 MG/DL (9-23); CALCIUM LEVEL 8.9 MG/DL (8.5-10.1); CARBON DIOXIDE LEVEL 28 MMOL/L (20-31); CHLORIDE LEVEL 106 MMOL/L (98-107); CREATININE FOR GFR 0.55 MG/DL (0.55-1.30); GLOMERULAR FILTRATION RATE > 60.0 (>60); GLUCOSE, FASTING 110 MG/DL (60-100); MAGNESIUM LEVEL 1.7 MG/DL (1.8-2.4); POTASSIUM SERUM 4.3 MMOL/L (3.5-5.1); SODIUM LEVEL 141 MMOL/L (136-145)
[2024-03-27 09:00] VITALS: BP 112/85; TEMP 97.5; O2SAT 99
[2024-03-27] MEDS: MAG SULF 1GM/100ML (MAG RUN) 1 GM in IV 1 EA IV SCH (09:01)
[2024-03-27] MEDS ORDERED: MAGN400T2 PO (10:47)
[2024-03-27] MEDS ORDERED: K-TA1TAB PO (10:47)
[2024-03-27 12:00] VITALS: BP 112/82; TEMP 97.7; O2SAT 97
== END 2024-03-27 15:14 | disposition home or self-care (01) ==
LOC: M ED 01:22 → M ED INP 10:37 → M MSPAV 12:08
PROVIDERS: ADMIT Student in an Organized Health Care Education/Training Program; ATTEND Student in an Organized Health Care Education/Training Program
DX: K85.20 Alcohol induced acute pancreatitis without necrosis or infection (principal); K86.0 Alcohol-induced chronic pancreatitis; E87.6 Hypokalemia; E83.42 Hypomagnesemia; K70.30 Alcoholic cirrhosis of liver without ascites; K76.6 Portal hypertension; Z87.19 Personal history of other diseases of the digestive system; F10.220 Alcohol dependence with intoxication, uncomplicated; D50.9 Iron deficiency anemia, unspecified; D69.6 Thrombocytopenia, unspecified; K29.20 Alcoholic gastritis without bleeding; F41.9 Anxiety disorder, unspecified; F32.A Depression, unspecified; R10.13 Epigastric pain; R11.2 Nausea with vomiting, unspecified; R44.0 Auditory hallucinations; R44.1 Visual hallucinations; Z79.899 Other long term (current) drug therapy
CPT/HCPCS: 36415; 80048; 80076; 82077; 82140; 83690; 83735; 85025; 96361; 96365; 96366; 96375; 96376; 99285; J2060; J2405; J3475

== ENCOUNTER 2024-04-10 16:47 | Emergency (ER) | payer OTHER ==
[~2024-04-10] VITALS: Ht 162.6 cm; Wt 62.7 kg
[~2024-04-10 16:47] MED LIST changes: +B-1100TA2 PO; +HYDR2TAB2 PO; +K-TA1TAB PO
[2024-04-10 17:42] LABS: BASO # 0.2 10^3/uL (0.0-0.2); EOS # 0.2 10^3/uL (0.0-0.5); EOS % 2.4 % (0.0-3.0); HEMATOCRIT 34.2 % (36.0-47.0); HEMOGLOBIN 11.5 g/dl (12.0-15.5); LYMPH # 2.5 10^3/uL (1.5-5.0); LYMPH % 32.5 % (24.0-44.0); MEAN CORPUSCULAR HEMOGLOBIN 29.3 pg (27.0-33.0); MEAN CORPUSCULAR HGB CONC 33.6 g/dl (32.0-36.5); MEAN CORPUSCULAR VOLUME 87.2 fl (80.0-96.0); MONO # 0.3 10^3/uL (0.0-0.8); MONO % 3.8 % (2.0-8.0); NEUTROPHILS # 4.5 10^3/uL (1.5-8.5); NEUTROPHILS % 58.8 % (36.0-66.0); PLATELET COUNT, AUTOMATED 314 10^3/uL (150-450); RED BLOOD COUNT 3.92 10^6/uL (4.00-5.40); WHITE BLOOD COUNT 7.6 10^3/uL (4.0-10.0)
[2024-04-10 17:54] LABS: BLOOD UREA NITROGEN 8 MG/DL (9-23); CALCIUM LEVEL 7.9 MG/DL (8.5-10.1); CARBON DIOXIDE LEVEL 26 MMOL/L (20-31); CHLORIDE LEVEL 103 MMOL/L (98-107); CREATININE FOR GFR 0.44 MG/DL (0.55-1.30); GLOMERULAR FILTRATION RATE > 60.0 (>60); GLUCOSE, FASTING 83 MG/DL (60-100); POTASSIUM SERUM 3.6 MMOL/L (3.5-5.1); SODIUM LEVEL 147 MMOL/L (136-145)
[2024-04-10] MEDS: PANTOPRAZOLE 40MG VIAL IV ONE (17:58)
[2024-04-10 18:13] LABS: LIPASE 205 U/L (12-53)
[2024-04-10 18:15] LABS: ALBUMIN 3.3 G/DL (3.2-5.2); ALKALINE PHOSPHATASE 258 U/L (35-104); ALT/SGPT 41 U/L (7.0-40); AST/SGOT 107 U/L (<34); BILIRUBIN,DIRECT 0.4 MG/DL (<0.4); BILIRUBIN,TOTAL 0.9 MG/DL (0.3-1.2); MAGNESIUM LEVEL 1.4 MG/DL (1.8-2.4); TOTAL PROTEIN 7.4 G/DL (5.7-8.2)
[2024-04-10 18:21] LABS: INR 1.33; PROTHROMBIN TIME 16.7 SECONDS (12.5-14.5)
[2024-04-10 18:40] LABS: ETHYL ALCOHOL (ETHANOL) 0.414 % (0.000-0.010)
[2024-04-10] MEDS: MAG SULF 1GM/100ML (MAG RUN) 1 GM in IV 1 EA IV ONE (18:46)
[2024-04-10] MEDS: fentaNYL 100 MCG/2 ML INJECTION IV ONE (18:47)
[2024-04-10 20:00] VITALS: TEMP 98.9
[2024-04-10] MEDS: ANEXSIA, NORCO 7.5MG/325MG TABLET(HYDROCODONE/APAP) PO ONE (20:22)
[2024-04-10] MEDS: ONDANSETRON 4MG 2ML VIAL IV ONE (20:29)
[2024-04-10 22:45] VITALS: BP 102/71; O2SAT 94
== END 2024-04-10 23:05 | disposition left against medical advice (07) ==
LOC: M ED 16:47 → EDBD 16:47 → M ED 23:05
DX: K29.20 Alcoholic gastritis without bleeding (principal); K86.0 Alcohol-induced chronic pancreatitis; Z53.9 Procedure and treatment not carried out, unspecified reason; K70.9 Alcoholic liver disease, unspecified; Z79.899 Other long term (current) drug therapy; Z88.8 Allergy status to other drugs, medicaments and biological substances; Z91.041 Radiographic dye allergy status
CPT/HCPCS: 80048; 80076; 82077; 83690; 83735; 85025; 85610; 96365; 96374; 96375; 99284; J2405; J2470; J3010; J3475

== ENCOUNTER 2024-05-25 03:40 | Inpatient (IN) | payer OTHER ==
[~2024-05-25] VITALS: Ht 162.6 cm; Wt 62.6 kg
[2024-05-25 05:07] LABS: LIPASE 176 U/L (12-53)
[2024-05-25 05:28] LABS: ALBUMIN 3.3 G/DL (3.2-5.2); ALKALINE PHOSPHATASE 227 U/L (35-104); ALT/SGPT 48 U/L (7.0-40); AST/SGOT 139 U/L (<34); BILIRUBIN,TOTAL 0.9 MG/DL (0.3-1.2); BLOOD UREA NITROGEN < 5 MG/DL (9-23); CALCIUM LEVEL 8.6 MG/DL (8.5-10.1); CARBON DIOXIDE LEVEL 26 MMOL/L (20-31); CHLORIDE LEVEL 102 MMOL/L (98-107); CREATININE FOR GFR 0.37 MG/DL (0.55-1.30); ETHYL ALCOHOL (ETHANOL) 0.395 % (0.000-0.010); GLOMERULAR FILTRATION RATE > 60.0 (>60); GLUCOSE, FASTING 100 MG/DL (60-100); POTASSIUM SERUM 3.7 MMOL/L (3.5-5.1); SODIUM LEVEL 143 MMOL/L (136-145); TOTAL PROTEIN 7.4 G/DL (5.7-8.2)
[2024-05-25] MEDS: ONDANSETRON 4MG 2ML VIAL IM ONE (05:35)
[2024-05-25 06:11] LABS: BASO # 0.1 10^3/uL (0.0-0.2); BASO % 1.1 % (0.0-1.0); EOS # 0.1 10^3/uL (0.0-0.5); EOS % 1.5 % (0.0-3.0); HEMOGLOBIN 10.7 g/dl (12.0-15.5); LYMPH # 1.7 10^3/uL (1.5-5.0); LYMPH % 26.1 % (24.0-44.0); MEAN CORPUSCULAR HEMOGLOBIN 26.7 pg (27.0-33.0); MEAN CORPUSCULAR HGB CONC 32.4 g/dl (32.0-36.5); MEAN CORPUSCULAR VOLUME 82.3 fl (80.0-96.0); MONO # 0.5 10^3/uL (0.0-0.8); MONO % 7.4 % (2.0-8.0); NEUTROPHILS # 4.2 10^3/uL (1.5-8.5); NEUTROPHILS % 63.6 % (36.0-66.0); PLATELET COUNT, AUTOMATED 202 10^3/uL (150-450); RED BLOOD COUNT 4.01 10^6/uL (4.00-5.40); WHITE BLOOD COUNT 6.6 10^3/uL (4.0-10.0)
[2024-05-25] MEDS: MORPHINE 4 MG/ML 1ML VIAL IV ONE (06:53)
[2024-05-25] MEDS: NS (Normal Saline) 0.9% 1,000 ML IV ONE (06:53)
[2024-05-25] MEDS ORDERED: LORazepam 2 MG TAB PO PRN (08:15)
[2024-05-25 08:30] LABS: KETONE, URINE AUTO RFX NEGATIVE (NEGATIVE); NITRITE, URINE AUTO RFX NEGATIVE (NEGATIVE); RBC, URINE AUTO RFX 1 /HPF (0-3); SQUAM EPITHELIAL CELL UR AURFX 0 /HPF (0-6)
[2024-05-25 08:33] LABS: LEUKOCYTE ESTERASE UR AUTO RFX 3+ (NEGATIVE); WBC, URINE AUTO RFX 24 /HPF (0-3)
[2024-05-25] MEDS ORDERED: POTA-298 PO (08:59)
[2024-05-25 09:01] LABS: AMPHETAMINES LEVEL URINE NEGATIVE (NEGATIVE); BARBITURATES URINE NEGATIVE (NEGATIVE); BENZODIAZEPINES URINE NEGATIVE (NEGATIVE); CANNABINOIDS URINE NEGATIVE (NEGATIVE); COCAINE METABOLITE URINE NEGATIVE (NEGATIVE); METHADONE URINE NEGATIVE (NEGATIVE); PHENCYCLIDINE URINE NEGATIVE (NEGATIVE)
[2024-05-25] MEDS ORDERED: FERR325T3 PO (09:02)
[2024-05-25] MEDS ORDERED: COLL1CAP PO (09:02)
[2024-05-25 09:10] LABS: OPIATES URINE POSITIVE (NEGATIVE)
[2024-05-25] MEDS ORDERED: HOME MED LIST COMPLETE! XX SCH (09:20)
[2024-05-25 09:21] LABS: IONIZED CALCIUM 4.1 MG/DL (4.5-5.3)
[2024-05-25] MEDS: FOLIC ACID 1MG TAB PO SCH (09:22)
[2024-05-25] MEDS: LR 1,000 ML IV SCH ×2 (09:22→15:32)
[2024-05-25] MEDS: MULTIVITAMINS/MINERALS THERAP 1 TAB PO SCH (09:22)
[2024-05-25] MEDS: KETOROLAC 30 MG/ML 1ML VIAL IV SCH (09:22)
[2024-05-25] MEDS: THIAMINE 100 MG TAB PO SCH (09:22)
[2024-05-25] MEDS: PROMETHAZINE 25MG/ML 1ML VIAL IV ONE (09:31)
[2024-05-25 09:57] LABS: CHOLESTEROL RISK RATIO 3.08 (<5); HDL CHOLESTEROL 54.1 MG/DL (>40); LDL CHOLESTEROL 103.1 MG/DL (<100); NON-HDL-C 112.9 MG/DL
[2024-05-25] MEDS ORDERED: SENOKOT S TAB PO PRN (14:50)
[2024-05-25] MEDS ORDERED: MOM 30ML SUSPENSION UDC PO PRN (14:50)
[2024-05-25 15:04] VITALS: BP 104/53; TEMP 97.8
[2024-05-25 15:10] VITALS: BP 104/53
[2024-05-25 15:11] LABS: MAGNESIUM LEVEL 1.3 MG/DL (1.8-2.4)
[2024-05-25] MEDS: CALCIUM GLUCONATE 1,000 MG in DEXTROSE 5% (D5W) MINI-BAG PLU 100 ML IV ONE (15:32)
[2024-05-25 16:20] LABS: POTASSIUM SERUM 3.4 MMOL/L (3.5-5.1)
[2024-05-25] MEDS: SUCRALFATE SUSP 1GM/10ML UD PO SCH (17:30)
[2024-05-25] MEDS: MORPHINE SULFATE TAB IMM. REL. 15 MG PO PRN (17:50)
[2024-05-25 18:02] LABS: MAGNESIUM LEVEL 1.2 MG/DL (1.8-2.4); POTASSIUM SERUM 3.4 MMOL/L (3.5-5.1)
[2024-05-25] MEDS: POTASSIUM CHLORIDE 10MEQ SR TABLET PO ONE (18:09)
[2024-05-25] MEDS: MAG SULF 1GM/100ML (MAG RUN) 1 GM in IV 1 EA IV ONE (18:09)
[2024-05-25] MEDS: MAGNESIUM OXIDE 400MG TAB (MAG-OX) PO SCH (20:15)
[2024-05-25 20:42] VITALS: BP 115/65; TEMP 97.9; O2SAT 95
[2024-05-25 23:43] LABS: IONIZED CALCIUM 4.1 MG/DL (4.5-5.3)
[2024-05-25] MEDS: MORPHINE SULFATE TAB IMM. REL. 15 MG PO ONE (23:43)
[2024-05-25] MEDS: PROMETHAZINE 25MG/ML 1ML VIAL IV PRN (23:49)
[2024-05-26 00:04] VITALS: BP 110/68
[2024-05-26 00:22] LABS: MAGNESIUM LEVEL 1.4 MG/DL (1.8-2.4); POTASSIUM SERUM 4.1 MMOL/L (3.5-5.1)
[2024-05-26 04:47] VITALS: BP 108/65; TEMP 97.9; O2SAT 94
[2024-05-26 05:29] VITALS: BP 119/68; TEMP 97.9; O2SAT 94
[2024-05-26 07:54] LABS: IONIZED CALCIUM 4.7 MG/DL (4.5-5.3)
[2024-05-26] MEDS: LR 1,000 ML IV SCH (07:58)
[2024-05-26 08:04] LABS: HEMATOCRIT 29.3 % (36.0-47.0); HEMOGLOBIN 9.4 g/dl (12.0-15.5); MEAN CORPUSCULAR HEMOGLOBIN 27.4 pg (27.0-33.0); MEAN CORPUSCULAR HGB CONC 32.1 g/dl (32.0-36.5); MEAN CORPUSCULAR VOLUME 85.4 fl (80.0-96.0); PLATELET COUNT, AUTOMATED 110 10^3/uL (150-450); RED BLOOD COUNT 3.43 10^6/uL (4.00-5.40); WHITE BLOOD COUNT 4.2 10^3/uL (4.0-10.0)
[2024-05-26 08:22] LABS: LIPASE 58 U/L (12-53)
[2024-05-26 08:22] LABS: MAGNESIUM LEVEL 1.9 MG/DL (1.8-2.4)
[2024-05-26 08:31] LABS: ALKALINE PHOSPHATASE 217 U/L (35-104); ALT/SGPT 41 U/L (7.0-40); AST/SGOT 104 U/L (<34); BILIRUBIN,TOTAL 1.3 MG/DL (0.3-1.2); BLOOD UREA NITROGEN < 5 MG/DL (9-23); CALCIUM LEVEL 8.5 MG/DL (8.5-10.1); CARBON DIOXIDE LEVEL 26 MMOL/L (20-31); CHLORIDE LEVEL 99 MMOL/L (98-107); CREATININE FOR GFR 0.43 MG/DL (0.55-1.30); GLOMERULAR FILTRATION RATE > 60.0 (>60); GLUCOSE, FASTING 68 MG/DL (60-100); MAGNESIUM LEVEL 1.3 MG/DL (1.8-2.4); POTASSIUM SERUM 4.2 MMOL/L (3.5-5.1); SODIUM LEVEL 137 MMOL/L (136-145); TOTAL PROTEIN 6.6 G/DL (5.7-8.2)
[2024-05-26] MEDS: MAG SULF 1GM/100ML (MAG RUN) 1 GM in IV 1 EA IV ONE (09:56)
[2024-05-26] MEDS: CALCIUM GLUCONATE 1,000 MG in DEXTROSE 5% (D5W) MINI-BAG PLU 100 ML IV ONE (10:44)
[2024-05-26 12:00] VITALS: BP 116/77; TEMP 98.6; O2SAT 92
[2024-05-26 19:38] VITALS: BP 112/66; TEMP 98.4; O2SAT 92
[2024-05-26 21:33] VITALS: BP 112/66
[2024-05-27] MEDS: LACTULOSE 20GM/30ML SYRUP UDC PO PRN (01:49)
[2024-05-27] MEDS: MORPHINE SULFATE TAB IMM. REL. 15 MG PO ONE (01:50)
[2024-05-27 04:01] VITALS: BP 114/67; TEMP 98.4; O2SAT 99
[2024-05-27 04:02] VITALS: BP 114/67
[2024-05-27 06:55] LABS: HEMATOCRIT 29.6 % (36.0-47.0); HEMOGLOBIN 9.4 g/dl (12.0-15.5); MEAN CORPUSCULAR HEMOGLOBIN 27.1 pg (27.0-33.0); MEAN CORPUSCULAR HGB CONC 31.8 g/dl (32.0-36.5); MEAN CORPUSCULAR VOLUME 85.3 fl (80.0-96.0); PLATELET COUNT, AUTOMATED 103 10^3/uL (150-450); RED BLOOD COUNT 3.47 10^6/uL (4.00-5.40); WHITE BLOOD COUNT 6.6 10^3/uL (4.0-10.0)
[2024-05-27 07:17] LABS: LIPASE 31 U/L (12-53)
[2024-05-27 07:28] LABS: ALKALINE PHOSPHATASE 219 U/L (35-104); ALT/SGPT 42 U/L (7.0-40); AST/SGOT 125 U/L (<34); BLOOD UREA NITROGEN < 5 MG/DL (9-23); CALCIUM LEVEL 8.2 MG/DL (8.5-10.1); CARBON DIOXIDE LEVEL 27 MMOL/L (20-31); CHLORIDE LEVEL 100 MMOL/L (98-107); CREATININE FOR GFR 0.42 MG/DL (0.55-1.30); GLOMERULAR FILTRATION RATE > 60.0 (>60); GLUCOSE, FASTING 87 MG/DL (60-100); MAGNESIUM LEVEL 1.6 MG/DL (1.8-2.4); POTASSIUM SERUM 4.1 MMOL/L (3.5-5.1); SODIUM LEVEL 136 MMOL/L (136-145); TOTAL PROTEIN 6.6 G/DL (5.7-8.2)
[2024-05-27 08:30] VITALS: BP 122/80
[2024-05-27] MEDS: MAGNESIUM OXIDE 400MG TAB (MAG-OX) PO ONE (08:44)
== END 2024-05-27 10:15 | disposition home or self-care (01) | DRG 439 ==
LOC: M ED 03:40 → EDBD 03:40 → M ED INP 08:12 → M MS5PR 15:00
PROVIDERS: ADMIT General Practice; ATTEND General Practice
DX: K85.20 Alcohol induced acute pancreatitis without necrosis or infection (principal); F10.139 Alcohol abuse with withdrawal, unspecified; F10.129 Alcohol abuse with intoxication, unspecified; D50.9 Iron deficiency anemia, unspecified; K70.30 Alcoholic cirrhosis of liver without ascites; D69.6 Thrombocytopenia, unspecified; K29.70 Gastritis, unspecified, without bleeding; K21.00 Gastro-esophageal reflux disease with esophagitis, without bleeding; E83.51 Hypocalcemia; E87.6 Hypokalemia; I95.9 Hypotension, unspecified; E83.42 Hypomagnesemia; F41.9 Anxiety disorder, unspecified; F32.A Depression, unspecified; Z79.899 Other long term (current) drug therapy; Z88.8 Allergy status to other drugs, medicaments and biological substances; Z91.041 Radiographic dye allergy status; Z91.048 Other nonmedicinal substance allergy status

== ENCOUNTER 2024-06-08 18:42 | Inpatient (IN) | payer OTHER ==
[~2024-06-08 18:42] MED LIST changes: +COLL1CAP PO; +POTA-298 PO
[2024-06-08] MEDS ORDERED: ONDANSETRON 4MG 2ML VIAL IM ONE (19:20)
[2024-06-08] MEDS: NS (Normal Saline) 0.9% 1,000 ML IV ONE ×2 (20:00→23:10)
[2024-06-08 20:09] LABS: VENOUS BASE EXCESS 2.3 (-2.0-2.0); VENOUS HCO3 26.7 MMOL/L (23.0-27.0); VENOUS O2 SATURATION 94.6 % (60.0-80.0); VENOUS PARTIAL PRESSURE CO2 40.9 mmHg (38.0-50.0); VENOUS PH 7.433 UNITS (7.330-7.430); VENOUS STANDARD HCO3 26.4 MMOL/L
[2024-06-08] MEDS: HYDROMORPHONE HCL 0.5 MG/ 0.5 ML SYRINGE IM ONE (20:10)
[2024-06-08 20:12] LABS: BASO # 0.2 10^3/uL (0.0-0.2); BASO % 1.8 % (0.0-1.0); EOS # 0.1 10^3/uL (0.0-0.5); EOS % 0.9 % (0.0-3.0); HEMATOCRIT 33.9 % (36.0-47.0); MEAN CORPUSCULAR HGB CONC 32.4 g/dl (32.0-36.5); MEAN CORPUSCULAR VOLUME 83.3 fl (80.0-96.0); MONO # 1.1 10^3/uL (0.0-0.8); MONO % 9.8 % (2.0-8.0); NEUTROPHILS # 6.7 10^3/uL (1.5-8.5); NEUTROPHILS % 60.2 % (36.0-66.0); PLATELET COUNT, AUTOMATED 301 10^3/uL (150-450); RED BLOOD COUNT 4.07 10^6/uL (4.00-5.40); WHITE BLOOD COUNT 11.2 10^3/uL (4.0-10.0)
[2024-06-08] MEDS: HYDROMORPHONE HCL 0.5 MG/ 0.5 ML SYRINGE IV PRN ×2 (20:12→22:25)
[2024-06-08] MEDS: ONDANSETRON 4MG 2ML VIAL IV ONE (20:12)
[2024-06-08 20:28] LABS: KETONE, URINE AUTO RFX NEGATIVE (NEGATIVE); LEUKOCYTE ESTERASE UR AUTO RFX NEGATIVE (NEGATIVE); NITRITE, URINE AUTO RFX NEGATIVE (NEGATIVE); RBC, URINE AUTO RFX 0 /HPF (0-3); SQUAM EPITHELIAL CELL UR AURFX 0 /HPF (0-6); WBC, URINE AUTO RFX 0 /HPF (0-3)
[2024-06-08 20:30] LABS: LIPASE 201 U/L (12-53)
[2024-06-08 20:33] LABS: AMYLASE 304 U/L (30-118)
[2024-06-08 20:34] LABS: ALBUMIN 3.4 G/DL (3.2-5.2); ALKALINE PHOSPHATASE 259 U/L (35-104); ALT/SGPT 59 U/L (7.0-40); AST/SGOT 141 U/L (<34); BILIRUBIN,DIRECT 0.4 MG/DL (<0.4); BILIRUBIN,TOTAL 0.8 MG/DL (0.3-1.2); BLOOD UREA NITROGEN 7 MG/DL (9-23); CALCIUM LEVEL 8.1 MG/DL (8.5-10.1); CARBON DIOXIDE LEVEL 27 MMOL/L (20-31); CHLORIDE LEVEL 103 MMOL/L (98-107); CREATININE FOR GFR 0.41 MG/DL (0.55-1.30); GLOMERULAR FILTRATION RATE > 60.0 (>60); GLUCOSE, FASTING 121 MG/DL (60-100); POTASSIUM SERUM 3.2 MMOL/L (3.5-5.1); SODIUM LEVEL 144 MMOL/L (136-145); TOTAL PROTEIN 7.7 G/DL (5.7-8.2)
[2024-06-08 20:48] LABS: ETHYL ALCOHOL (ETHANOL) 0.414 % (0.000-0.010)
[2024-06-08] MEDS: HYDROmorphone 2 MG TAB PO ONE (22:25)
[2024-06-08] MEDS: HALOPERIDOL LACTATE 5MG/ML VIAL IV ONE (22:25)
[2024-06-09] MEDS ORDERED: DILA2TAB6 PO (00:33)
[2024-06-09] MEDS ORDERED: PROM12.56 PO (00:33)
[2024-06-09] MEDS: NS (Normal Saline) 0.9% 1,000 ML IV SCH (01:25)
[2024-06-09] MEDS: ONDANSETRON 4MG 2ML VIAL IV ONE (03:29)
[2024-06-09] MEDS: POTASSIUM CHLORIDE 10% LIQ 20MEQ/15ML UDC PO ONE (03:29)
[2024-06-09] MEDS: NS (Normal Saline) 0.9% 1,000 ML IV ONE (03:29)
[2024-06-09] MEDS ORDERED: MOM 30ML SUSPENSION UDC PO PRN (04:25)
[2024-06-09] MEDS ORDERED: LORazepam 2 MG TAB PO PRN (04:25)
[2024-06-09] MEDS ORDERED: MAALOX 30 ML SUSP *UDC PO PRN (04:25)
[2024-06-09] MEDS ORDERED: KETOROLAC 30 MG/ML 1ML VIAL IV PRN (04:25)
[2024-06-09] MEDS: LR 1,000 ML IV SCH (04:25)
[2024-06-09] MEDS ORDERED: IBUPROFEN 600MG TAB PO PRN (04:25)
[2024-06-09 04:53] LABS: AMPHETAMINES LEVEL URINE NEGATIVE (NEGATIVE); BARBITURATES URINE NEGATIVE (NEGATIVE); BENZODIAZEPINES URINE NEGATIVE (NEGATIVE); CANNABINOIDS URINE NEGATIVE (NEGATIVE); COCAINE METABOLITE URINE NEGATIVE (NEGATIVE); METHADONE URINE NEGATIVE (NEGATIVE); OPIATES URINE NEGATIVE (NEGATIVE); PHENCYCLIDINE URINE NEGATIVE (NEGATIVE)
[2024-06-09] MEDS: THIAMINE 100 MG TAB PO SCH (05:32)
[2024-06-09] MEDS: KETOROLAC 30 MG/ML 1ML VIAL IV PRN (05:35)
[2024-06-09 06:04] LABS: INR 1.53; PARTIAL THROMBOPLASTIN TIME 36.8 SECONDS (24.8-34.2); PROTHROMBIN TIME 18.6 SECONDS (12.5-14.5)
[2024-06-09 06:06] LABS: MAGNESIUM LEVEL 1.4 MG/DL (1.8-2.4)
[2024-06-09] MEDS ORDERED: HOME MED LIST COMPLETE! XX SCH (06:10)
[2024-06-09 06:15] LABS: PROCALCITONIN 0.05 ng/ml
[2024-06-09] MEDS ORDERED: LACTULOSE 20GM/30ML SYRUP UDC PO PRN (07:25)
[2024-06-09 07:31] LABS: ALBUMIN 2.8 G/DL (3.2-5.2); ALKALINE PHOSPHATASE 197 U/L (35-104); ALT/SGPT 45 U/L (7.0-40); AST/SGOT 115 U/L (<34); BILIRUBIN,TOTAL 0.7 MG/DL (0.3-1.2); BLOOD UREA NITROGEN < 5 MG/DL (9-23); CALCIUM LEVEL 6.3 MG/DL (8.5-10.1); CARBON DIOXIDE LEVEL 25 MMOL/L (20-31); CHLORIDE LEVEL 108 MMOL/L (98-107); CREATININE FOR GFR 0.38 MG/DL (0.55-1.30); GLOMERULAR FILTRATION RATE > 60.0 (>60); GLUCOSE, FASTING 97 MG/DL (60-100); POTASSIUM SERUM 4.3 MMOL/L (3.5-5.1); SODIUM LEVEL 141 MMOL/L (136-145); TOTAL PROTEIN 6.2 G/DL (5.7-8.2)
[2024-06-09 07:34] LABS: BASO # 0.1 10^3/uL (0.0-0.2); BASO % 1.2 % (0.0-1.0); EOS # 0.2 10^3/uL (0.0-0.5); HEMATOCRIT 28.2 % (36.0-47.0); LYMPH # 2.5 10^3/uL (1.5-5.0); LYMPH % 28.1 % (24.0-44.0); MEAN CORPUSCULAR HGB CONC 31.6 g/dl (32.0-36.5); MEAN CORPUSCULAR VOLUME 85.5 fl (80.0-96.0); MONO # 0.8 10^3/uL (0.0-0.8); MONO % 8.5 % (2.0-8.0); NEUTROPHILS # 5.3 10^3/uL (1.5-8.5); NEUTROPHILS % 59.9 % (36.0-66.0); WHITE BLOOD COUNT 8.9 10^3/uL (4.0-10.0)
[2024-06-09 07:38] LABS: HEMOGLOBIN 8.9 g/dl (12.0-15.5); PLATELET COUNT, AUTOMATED 188 10^3/uL (150-450)
[2024-06-09] MEDS: SUCRALFATE 1 GM TAB PO SCH ×2 (09:00→13:15)
[2024-06-09] MEDS: MULTIVITAMINS/MINERALS THERAP 1 TAB PO SCH (09:00)
[2024-06-09] MEDS ORDERED: PANTOPRAZOLE 40MG VIAL IV SCH (09:00)
[2024-06-09] MEDS: DOCUSATE SODIUM 100MG CAPSULE PO SCH (09:00)
[2024-06-09] MEDS: MAG SULF 1GM/100ML (MAG RUN) 1 GM in IV 1 EA IV SCH (09:00)
[2024-06-09] MEDS: FOLIC ACID 1MG TAB PO SCH (09:00)
[2024-06-09] MEDS: PRENATAL VITAMINS CHEWABLE TABLET PO SCH (09:00)
[2024-06-09] MEDS: FERROUS SULFATE 325MG TAB PO SCH (09:00)
[2024-06-09 09:21] LABS: TRIGLYCERIDES LEVEL 57 MG/DL (<150)
[2024-06-09] MEDS ORDERED: MORPHINE 2 MG/ML 1ML VIAL IV PRN (10:50)
[2024-06-09] MEDS: PANTOPRAZOLE 40MG VIAL IV SCH (12:11)
[2024-06-09 13:50] VITALS: BP 113/71; TEMP 97.5; O2SAT 96
[2024-06-09] MEDS: MORPHINE 2 MG/ML 1ML VIAL IV PRN (13:55)
[2024-06-09] MEDS: ONDANSETRON 4MG 2ML VIAL IV PRN (13:56)
[2024-06-09] MEDS: HEPARIN SOD (PORCINE) 5000UNITS/ML 1ML VIAL/SYRINGE SC SCH (14:00)
[2024-06-09] MEDS: CREON-24 CAPSULE (PANCRELIPASE) PO SCH (14:26)
[2024-06-09] MEDS: CREON-12 CAPSULE (PANCRELIPASE) PO SCH (14:26)
[2024-06-09 16:00] VITALS: BP 113/72; TEMP 97.9; O2SAT 97
[2024-06-09] MEDS: MORPHINE 4 MG/ML 1ML VIAL IV PRN (16:49)
[2024-06-09] MEDS: LACTULOSE 20GM/30ML SYRUP UDC PO SCH (18:46)
[2024-06-09 19:30] VITALS: BP 112/70; TEMP 98.4; O2SAT 96
[2024-06-09] MEDS: MAGNESIUM OXIDE 400MG TAB (MAG-OX) PO SCH (21:00)
[2024-06-09] MEDS ORDERED: PANTOPRAZOLE 40MG TAB (PROTONIX) PO SCH (21:00)
[2024-06-09 23:10] VITALS: BP 120/61; TEMP 98.4; O2SAT 96
[2024-06-10 04:01] VITALS: BP 119/71; TEMP 98.4; O2SAT 96
[2024-06-10 06:44] LABS: BASO % 0.9 % (0.0-1.0); EOS # 0.2 10^3/uL (0.0-0.5); EOS % 4.2 % (0.0-3.0); HEMATOCRIT 28.4 % (36.0-47.0); HEMOGLOBIN 9.1 g/dl (12.0-15.5); LYMPH # 1.2 10^3/uL (1.5-5.0); LYMPH % 26.7 % (24.0-44.0); MEAN CORPUSCULAR HEMOGLOBIN 26.5 pg (27.0-33.0); MEAN CORPUSCULAR VOLUME 82.8 fl (80.0-96.0); MONO # 0.3 10^3/uL (0.0-0.8); MONO % 7.3 % (2.0-8.0); NEUTROPHILS # 2.8 10^3/uL (1.5-8.5); NEUTROPHILS % 60.5 % (36.0-66.0); PLATELET COUNT, AUTOMATED 115 10^3/uL (150-450); RED BLOOD COUNT 3.43 10^6/uL (4.00-5.40); WHITE BLOOD COUNT 4.5 10^3/uL (4.0-10.0)
[2024-06-10 07:22] LABS: ALBUMIN 2.9 G/DL (3.2-5.2); ALKALINE PHOSPHATASE 210 U/L (35-104); ALT/SGPT 44 U/L (7.0-40); AST/SGOT 116 U/L (<34); BILIRUBIN,TOTAL 1.4 MG/DL (0.3-1.2); BLOOD UREA NITROGEN < 5 MG/DL (9-23); CALCIUM LEVEL 8.1 MG/DL (8.5-10.1); CARBON DIOXIDE LEVEL 27 MMOL/L (20-31); CHLORIDE LEVEL 101 MMOL/L (98-107); CREATININE FOR GFR 0.46 MG/DL (0.55-1.30); GLOMERULAR FILTRATION RATE > 60.0 (>60); GLUCOSE, FASTING 84 MG/DL (60-100); MAGNESIUM LEVEL 1.4 MG/DL (1.8-2.4); PHOSPHORUS LEVEL 2.4 MG/DL (2.5-4.9); POTASSIUM SERUM 3.6 MMOL/L (3.5-5.1); SODIUM LEVEL 137 MMOL/L (136-145); TOTAL PROTEIN 6.3 G/DL (5.7-8.2)
[2024-06-10 08:00] VITALS: BP 120/70; TEMP 98.4; O2SAT 95
[2024-06-10] MEDS: MAG SULF 1GM/100ML (MAG RUN) 1 GM in IV 1 EA IV SCH (09:02)
[2024-06-10 12:00] VITALS: BP 119/68; TEMP 98.6; O2SAT 96
[2024-06-10] MEDS: NEUTRA-PHOS 1.5 GM PACKET PO SCH (13:17)
[2024-06-10 16:00] VITALS: BP 117/68; TEMP 98.6; O2SAT 95
[2024-06-10 19:30] VITALS: BP 117/69; TEMP 98.6; O2SAT 96
[2024-06-11] VITALS: BP 118/73; TEMP 98.6; O2SAT 97
[2024-06-11] MEDS: OXAZEPAM 15MG CAP PO ONE (00:46)
[2024-06-11 05:18] LABS: BASO % 0.7 % (0.0-1.0); EOS # 0.3 10^3/uL (0.0-0.5); EOS % 4.7 % (0.0-3.0); HEMATOCRIT 29.4 % (36.0-47.0); HEMOGLOBIN 9.4 g/dl (12.0-15.5); LYMPH # 1.4 10^3/uL (1.5-5.0); LYMPH % 22.9 % (24.0-44.0); MEAN CORPUSCULAR HEMOGLOBIN 26.4 pg (27.0-33.0); MEAN CORPUSCULAR VOLUME 82.6 fl (80.0-96.0); MONO # 0.4 10^3/uL (0.0-0.8); NEUTROPHILS # 3.9 10^3/uL (1.5-8.5); NEUTROPHILS % 64.5 % (36.0-66.0); PLATELET COUNT, AUTOMATED 110 10^3/uL (150-450); RED BLOOD COUNT 3.56 10^6/uL (4.00-5.40)
[2024-06-11 05:59] LABS: ALBUMIN 2.9 G/DL (3.2-5.2); ALKALINE PHOSPHATASE 219 U/L (35-104); ALT/SGPT 45 U/L (7.0-40); AST/SGOT 109 U/L (<34); BLOOD UREA NITROGEN < 5 MG/DL (9-23); CALCIUM LEVEL 8.2 MG/DL (8.5-10.1); CARBON DIOXIDE LEVEL 26 MMOL/L (20-31); CHLORIDE LEVEL 102 MMOL/L (98-107); CREATININE FOR GFR 0.44 MG/DL (0.55-1.30); GLOMERULAR FILTRATION RATE > 60.0 (>60); GLUCOSE, FASTING 101 MG/DL (60-100); MAGNESIUM LEVEL 1.6 MG/DL (1.8-2.4); PHOSPHORUS LEVEL 3.4 MG/DL (2.5-4.9); POTASSIUM SERUM 3.8 MMOL/L (3.5-5.1); SODIUM LEVEL 135 MMOL/L (136-145); TOTAL PROTEIN 6.5 G/DL (5.7-8.2)
[2024-06-11 08:00] VITALS: BP 116/74; TEMP 98.2; O2SAT 92
[2024-06-11] MEDS: MAGNESIUM OXIDE 400MG TAB (MAG-OX) PO SCH (08:51)
[2024-06-11] MEDS: MAG SULF 1GM/100ML (MAG RUN) 1 GM in IV 1 EA IV SCH (08:52)
[2024-06-11 11:56] VITALS: BP 124/67; TEMP 97.9; O2SAT 92
[2024-06-11] MEDS ORDERED: MAGN400T2 PO (12:48)
[2024-06-11] MEDS ORDERED: CARA1TAB6 PO (12:48)
[2024-06-11] MEDS ORDERED: PROT1TAB2 PO (12:48)
== END 2024-06-11 14:28 | disposition home or self-care (01) | DRG 439 ==
LOC: EDBD 18:42 → M ED 18:42 → M ED INP 06-09 04:25 → M MSPAV 06-09 13:42
PROVIDERS: ADMIT Student in an Organized Health Care Education/Training Program; ATTEND Internal Medicine
DX: K85.20 Alcohol induced acute pancreatitis without necrosis or infection (principal); K76.6 Portal hypertension; E72.20 Disorder of urea cycle metabolism, unspecified; E87.20 Acidosis, unspecified; F10.220 Alcohol dependence with intoxication, uncomplicated; D50.9 Iron deficiency anemia, unspecified; K70.30 Alcoholic cirrhosis of liver without ascites; D69.6 Thrombocytopenia, unspecified; K21.9 Gastro-esophageal reflux disease without esophagitis; G89.4 Chronic pain syndrome; F31.9 Bipolar disorder, unspecified; E83.42 Hypomagnesemia; F41.9 Anxiety disorder, unspecified; Z79.899 Other long term (current) drug therapy; Z88.8 Allergy status to other drugs, medicaments and biological substances; Z91.041 Radiographic dye allergy status; Z91.048 Other nonmedicinal substance allergy status

== ENCOUNTER 2024-06-14 00:10 | Inpatient (IN) | payer OTHER ==
[~2024-06-14] VITALS: Ht 162.6 cm; Wt 65.9 kg
[2024-06-14] VITALS (9 sets, daily range): BP systolic 92–124; BP diastolic 49–81; TEMP 97.2–98.8; O2SAT 96–98
[~2024-06-14 00:10] MED LIST changes: +PROM12.56 PO
[2024-06-14 01:49] LABS: BASO # 0.1 10^3/uL (0.0-0.2); BASO % 1.4 % (0.0-1.0); EOS # 0.2 10^3/uL (0.0-0.5); EOS % 2.3 % (0.0-3.0); HEMATOCRIT 36.5 % (36.0-47.0); HEMOGLOBIN 11.4 g/dl (12.0-15.5); LYMPH # 2.6 10^3/uL (1.5-5.0); LYMPH % 38.6 % (24.0-44.0); MEAN CORPUSCULAR HGB CONC 31.2 g/dl (32.0-36.5); MEAN CORPUSCULAR VOLUME 86.3 fl (80.0-96.0); MONO # 0.4 10^3/uL (0.0-0.8); MONO % 5.4 % (2.0-8.0); NEUTROPHILS # 3.5 10^3/uL (1.5-8.5); NEUTROPHILS % 52.1 % (36.0-66.0); PLATELET COUNT, AUTOMATED 180 10^3/uL (150-450); RED BLOOD COUNT 4.23 10^6/uL (4.00-5.40); WHITE BLOOD COUNT 6.6 10^3/uL (4.0-10.0)
[2024-06-14 01:53] LABS: LIPASE 77 U/L (12-53)
[2024-06-14] MEDS: NS (Normal Saline) 0.9% 1,000 ML IV ONE ×2 (01:55→03:46)
[2024-06-14] MEDS: MORPHINE 4 MG/ML 1ML VIAL IV PRN (01:55)
[2024-06-14] MEDS: KETOROLAC 30 MG/ML 1ML VIAL IV ONE (01:55)
[2024-06-14] MEDS: METOCLOPRAMIDE INJ 10MG/2ML VIAL IV ONE (01:55)
[2024-06-14 02:02] LABS: ALBUMIN 3.5 G/DL (3.2-5.2); ALKALINE PHOSPHATASE 256 U/L (35-104); ALT/SGPT 58 U/L (7.0-40); AST/SGOT 119 U/L (<34); BILIRUBIN,DIRECT 0.3 MG/DL (<0.4); BILIRUBIN,TOTAL 0.7 MG/DL (0.3-1.2); BLOOD UREA NITROGEN 9 MG/DL (9-23); CARBON DIOXIDE LEVEL 25 MMOL/L (20-31); CHLORIDE LEVEL 107 MMOL/L (98-107); CREATININE FOR GFR 0.39 MG/DL (0.55-1.30); GLOMERULAR FILTRATION RATE > 90.0 (>60); GLUCOSE, FASTING 93 MG/DL (60-100); POTASSIUM SERUM 3.8 MMOL/L (3.5-5.1); SODIUM LEVEL 146 MMOL/L (136-145); TOTAL PROTEIN 7.8 G/DL (5.7-8.2)
[2024-06-14] MEDS ORDERED: MAALOX 30 ML SUSP *UDC PO PRN (04:15)
[2024-06-14] MEDS ORDERED: KETOROLAC 30 MG/ML 1ML VIAL IV PRN (04:15)
[2024-06-14] MEDS ORDERED: ACETAMINOPHEN 325 MG TAB PO PRN (04:15)
[2024-06-14] MEDS ORDERED: ONDANSETRON 4MG 2ML VIAL IV PRN (04:15)
[2024-06-14] MEDS ORDERED: MOM 30ML SUSPENSION UDC PO PRN (04:15)
[2024-06-14] MEDS: LR 1,000 ML IV SCH (04:49)
[2024-06-14] MEDS: LORazepam 2 MG TAB PO PRN (05:21)
[2024-06-14] MEDS: KETOROLAC 30 MG/ML 1ML VIAL IV PRN (05:21)
[2024-06-14 05:39] LABS: IONIZED CALCIUM 3.9 MG/DL (4.5-5.3)
[2024-06-14 06:03] LABS: INR 1.35; PARTIAL THROMBOPLASTIN TIME 34.1 SECONDS (24.8-34.2); PROTHROMBIN TIME 16.9 SECONDS (12.5-14.5)
[2024-06-14 06:16] LABS: AMYLASE 134 U/L (30-118); C REACTIVE PROTEIN QUANTITATIV < 0.50 MG/DL (<1.0)
[2024-06-14 06:20] LABS: MAGNESIUM LEVEL 1.6 MG/DL (1.8-2.4); PHOSPHORUS LEVEL 4.2 MG/DL (2.5-4.9)
[2024-06-14 06:32] LABS: KETONE, URINE AUTO RFX NEGATIVE (NEGATIVE); LEUKOCYTE ESTERASE UR AUTO RFX NEGATIVE (NEGATIVE); MUCUS, URINE RFX SMALL (NEGATIVE); NITRITE, URINE AUTO RFX NEGATIVE (NEGATIVE); RBC, URINE AUTO RFX 0 /HPF (0-3); SQUAM EPITHELIAL CELL UR AURFX 2 /HPF (0-6); WBC, URINE AUTO RFX 1 /HPF (0-3)
[2024-06-14] MEDS ORDERED: HOME MED LIST COMPLETE! XX SCH (10:05)
[2024-06-14] MEDS: FOLIC ACID 1MG TAB PO SCH (12:00)
[2024-06-14] MEDS: MULTIVITAMINS/MINERALS THERAP 1 TAB PO SCH (12:00)
[2024-06-14] MEDS: DOCUSATE SODIUM 100MG CAPSULE PO SCH (12:00)
[2024-06-14] MEDS: THIAMINE 100 MG TAB PO SCH (12:00)
[2024-06-14] MEDS: MAG SULF 1GM/100ML (MAG RUN) 1 GM in IV 1 EA IV ONE (14:35)
[2024-06-14] MEDS: ONDANSETRON 4MG ORAL DISINTEGRATING TAB PO PRN (14:40)
[2024-06-14] MEDS: POTASSIUM PHOSPHATE INJ 15 MMOL in D5W 250 ML IV ONE (15:41)
[2024-06-14] MEDS: LACTULOSE 20GM/30ML SYRUP UDC PO SCH (19:51)
[2024-06-14] MEDS: MORPHINE 2 MG/ML 1ML VIAL IV ONE (22:09)
[2024-06-14] MEDS: ACETAMINOPHEN *IV* 1,000 MG in IV 1 EA IV ONE (22:10)
[2024-06-15 04:01] VITALS: BP 124/79; TEMP 98.6; O2SAT 97
[2024-06-15 04:02] VITALS: BP 124/79
[2024-06-15 06:44] LABS: HEMATOCRIT 28.7 % (36.0-47.0); HEMOGLOBIN 9.4 g/dl (12.0-15.5); MEAN CORPUSCULAR HEMOGLOBIN 27.2 pg (27.0-33.0); MEAN CORPUSCULAR HGB CONC 32.8 g/dl (32.0-36.5); MEAN CORPUSCULAR VOLUME 82.9 fl (80.0-96.0); RED BLOOD COUNT 3.46 10^6/uL (4.00-5.40); WHITE BLOOD COUNT 4.6 10^3/uL (4.0-10.0)
[2024-06-15 06:52] LABS: ALBUMIN 2.9 G/DL (3.2-5.2); ALKALINE PHOSPHATASE 239 U/L (35-104); ALT/SGPT 48 U/L (7.0-40); AST/SGOT 113 U/L (<34); BILIRUBIN,TOTAL 1.1 MG/DL (0.3-1.2); BLOOD UREA NITROGEN < 5 MG/DL (9-23); CALCIUM LEVEL 8.2 MG/DL (8.5-10.1); CARBON DIOXIDE LEVEL 26 MMOL/L (20-31); CHLORIDE LEVEL 101 MMOL/L (98-107); CREATININE FOR GFR 0.43 MG/DL (0.55-1.30); GLOMERULAR FILTRATION RATE > 90.0 (>60); GLUCOSE, FASTING 102 MG/DL (60-100); MAGNESIUM LEVEL 1.5 MG/DL (1.8-2.4); POTASSIUM SERUM 3.5 MMOL/L (3.5-5.1); SODIUM LEVEL 135 MMOL/L (136-145); TOTAL PROTEIN 6.5 G/DL (5.7-8.2)
[2024-06-15 07:57] LABS: PLATELET COUNT, AUTOMATED 96 10^3/uL (150-450)
[2024-06-15 08:00] VITALS: BP 119/75; TEMP 98.2; O2SAT 94
[2024-06-15] MEDS: CREON-12 CAPSULE (PANCRELIPASE) PO SCH ×2 (08:00)
[2024-06-15] MEDS: CREON-24 CAPSULE (PANCRELIPASE) PO SCH (08:00)
[2024-06-15] MEDS: MAG SULF 1GM/100ML (MAG RUN) 1 GM in IV 1 EA IV SCH (08:05)
[2024-06-15 12:00] VITALS: BP 120/71; TEMP 98.1; O2SAT 96
[2024-06-15] MEDS ORDERED: THIA100TA PO (13:35)
[2024-06-15] MEDS ORDERED: FOLI1TAB11 PO (13:35)
== END 2024-06-15 15:26 | disposition home or self-care (01) | DRG 439 ==
LOC: M ED 00:10 → M ED INP 04:15 → M MSPAV 05:08
PROVIDERS: ADMIT Family Medicine; ATTEND Student in an Organized Health Care Education/Training Program
DX: K86.1 Other chronic pancreatitis (principal); K76.6 Portal hypertension; I85.10 Secondary esophageal varices without bleeding; F10.288 Alcohol dependence with other alcohol-induced disorder; F10.229 Alcohol dependence with intoxication, unspecified; D50.9 Iron deficiency anemia, unspecified; K70.30 Alcoholic cirrhosis of liver without ascites; D69.6 Thrombocytopenia, unspecified; K21.9 Gastro-esophageal reflux disease without esophagitis; F31.9 Bipolar disorder, unspecified; F41.9 Anxiety disorder, unspecified; R94.31 Abnormal electrocardiogram [ECG] [EKG]; Z79.899 Other long term (current) drug therapy; Z88.8 Allergy status to other drugs, medicaments and biological substances; Z91.041 Radiographic dye allergy status; Z91.048 Other nonmedicinal substance allergy status

== ENCOUNTER 2024-06-21 03:27 | Emergency (ER) | payer OTHER ==
[~2024-06-21] VITALS: Ht 162.6 cm; Wt 72.8 kg
[2024-06-21 04:29] LABS: HEMATOCRIT 32.5 % (36.0-47.0); HEMOGLOBIN 10.2 g/dl (12.0-15.5); MEAN CORPUSCULAR HGB CONC 31.4 g/dl (32.0-36.5); PLATELET COUNT, AUTOMATED 194 10^3/uL (150-450); RED BLOOD COUNT 3.78 10^6/uL (4.00-5.40); WHITE BLOOD COUNT 7.6 10^3/uL (4.0-10.0)
[2024-06-21 04:40] LABS: AMPHETAMINES LEVEL URINE NEGATIVE (NEGATIVE); BARBITURATES URINE NEGATIVE (NEGATIVE); BENZODIAZEPINES URINE NEGATIVE (NEGATIVE); CANNABINOIDS URINE NEGATIVE (NEGATIVE); COCAINE METABOLITE URINE NEGATIVE (NEGATIVE); METHADONE URINE NEGATIVE (NEGATIVE); OPIATES URINE NEGATIVE (NEGATIVE); PHENCYCLIDINE URINE NEGATIVE (NEGATIVE)
[2024-06-21 04:56] LABS: SALICYLATE LEVEL < 3.0 MG/DL (<30)
[2024-06-21 04:57] LABS: ALKALINE PHOSPHATASE 207 U/L (35-104); ALT/SGPT 45 U/L (7.0-40); AST/SGOT 87 U/L (<34); BILIRUBIN,DIRECT 0.3 MG/DL (<0.4); BILIRUBIN,TOTAL 0.5 MG/DL (0.3-1.2); BLOOD UREA NITROGEN 9 MG/DL (9-23); CALCIUM LEVEL 8.4 MG/DL (8.5-10.1); CARBON DIOXIDE LEVEL 30 MMOL/L (20-31); CHLORIDE LEVEL 107 MMOL/L (98-107); CREATININE FOR GFR 0.54 MG/DL (0.55-1.30); GLOMERULAR FILTRATION RATE > 90.0 (>60); GLUCOSE, FASTING 99 MG/DL (60-100); POTASSIUM SERUM 3.4 MMOL/L (3.5-5.1); SODIUM LEVEL 148 MMOL/L (136-145); TOTAL PROTEIN 6.8 G/DL (5.7-8.2)
[2024-06-21 04:59] LABS: THYROID STIMULATING HORMONE 1.695 uIU/ML (0.55-4.78)
[2024-06-21] MEDS ORDERED: LORazepam 2 MG TAB PO PRN (06:10)
[2024-06-21 06:19] LABS: ETHYL ALCOHOL (ETHANOL) 0.453 % (0.000-0.010)
[2024-06-21 06:42] LABS: LIPASE 115 U/L (12-53)
[2024-06-21] MEDS: MAALOX 30 ML SUSP *UDC PO ONE (07:20)
[2024-06-21] MEDS: KETOROLAC 60MG 2ML VIAL IM ONE (07:21)
[2024-06-21] MEDS: THIAMINE 100 MG TAB PO SCH (07:27)
[2024-06-21] MEDS: FOLIC ACID 1MG TAB PO SCH (08:35)
[2024-06-21] MEDS: MULTIVITAMINS/MINERALS THERAP 1 TAB PO SCH (08:35)
[2024-06-21] MEDS: PANTOPRAZOLE 40MG VIAL IV ONE (08:35)
[2024-06-21] MEDS ORDERED: THIA100T7 PO (12:05)
[2024-06-21] MEDS ORDERED: PANT-23 PO (12:05)
[2024-06-21] MEDS ORDERED: HOME MED LIST COMPLETE! XX SCH (12:05)
[2024-06-21 18:32] VITALS: TEMP 98.2; O2SAT 98
[2024-06-21 18:33] VITALS: BP 137/72
== END 2024-06-21 21:14 | disposition home or self-care (01) ==
LOC: M ED 03:27
DX: F10.129 Alcohol abuse with intoxication, unspecified (principal); F32.A Depression, unspecified; R10.9 Unspecified abdominal pain; K74.60 Unspecified cirrhosis of liver; Z79.899 Other long term (current) drug therapy; Z88.8 Allergy status to other drugs, medicaments and biological substances; Z91.89 Other specified personal risk factors, not elsewhere classified; Z91.041 Radiographic dye allergy status
CPT/HCPCS: 80048; 80076; 80143; 80307; 82077; 83690; 84443; 85027; 96372; 96374; 99284; J1885; J2470

== ENCOUNTER 2024-10-10 14:33 | Emergency (ER) | payer OTHER ==
[~2024-10-10] VITALS: Ht 162.6 cm; Wt 73.0 kg
[~2024-10-10 14:33] MED LIST changes: +BUPR-363 PO; -BUPR75TA5 PO; -EQL50TAB2 PO; -PREG50CA PO; +PREG50CA87 PO; +THIA100T7 PO; +VITA1TAB82 PO
[2024-10-10 14:50] VITALS: TEMP 97.6
[2024-10-10 15:06] LABS: BASO # 0.1 10^3/uL (0.0-0.2); BASO % 1.4 % (0.0-1.0); EOS # 0.2 10^3/uL (0.0-0.5); EOS % 4.0 % (0.0-3.0); LYMPH # 2.4 10^3/uL (1.5-5.0); LYMPH % 41.3 % (24.0-44.0); MONO # 0.4 10^3/uL (0.0-0.8); MONO % 7.6 % (2.0-8.0); NEUTROPHILS # 2.6 10^3/uL (1.5-8.5); NEUTROPHILS % 45.4 % (36.0-66.0); PLATELET COUNT, AUTOMATED 257 10^3/uL (150-450)
[2024-10-10 15:33] LABS: ALT/SGPT 40 U/L (7.0-40); AST/SGOT 75 U/L (<34); CALCIUM LEVEL 7.7 MG/DL (8.5-10.1); CARBON DIOXIDE LEVEL 26 MMOL/L (20-31); CHLORIDE LEVEL 111 MMOL/L (98-107); CREATININE FOR GFR 0.66 MG/DL (0.55-1.30); GLOMERULAR FILTRATION RATE > 90.0 (>60); POTASSIUM SERUM 3.7 MMOL/L (3.5-5.1); SODIUM LEVEL 150 MMOL/L (136-145)
[2024-10-10 15:54] LABS: ETHYL ALCOHOL (ETHANOL) 0.442 % (0.000-0.010)
[2024-10-10] MEDS: NS 500 ML IV ONE (16:27)
[2024-10-10] MEDS: KETOROLAC 30 MG/ML 1 ML VIAL IV ONE (16:27)
[2024-10-10] MEDS ORDERED: CREON-12 CAPSULE (PANCRELIPASE) PO SCH (18:00)
[2024-10-10] MEDS: LIDOCAINE VISCOUS 2% SOLN 15 ML UDC PO ONE (18:28)
[2024-10-10] MEDS: SUCRALFATE SUSP 1GM/10ML UD PO ONE (18:29)
[2024-10-10] MEDS: MAALOX 30 ML SUSP *UDC PO ONE (18:29)
[2024-10-10] MEDS: PANTOPRAZOLE 40MG VIAL IV ONE (18:29)
[2024-10-10] MEDS: NS 0.45% 1,000 ML IV ONE (19:14)
[2024-10-10] MEDS: LR 1,000 ML IV SCH (19:35)
[2024-10-10] MEDS ORDERED: HOME MED LIST COMPLETE! XX SCH (20:00)
[2024-10-10 20:20] LABS: APPEARANCE, URINE HAZY (CLEAR); BACTERIA, URINE AUTO 1+ (NEGATIVE); BILIRUBIN, URINE AUTO NEGATIVE (NEGATIVE); BLOOD, URINE BLOOD 1+ (NEGATIVE); GLUCOSE, URINE (UA) AUTO NEGATIVE (NEGATIVE); KETONE, URINE AUTO NEGATIVE (NEGATIVE); LEUKOCYTE ESTERASE, URINE AUTO NEGATIVE (NEGATIVE); MUCUS, URINE SMALL (NEGATIVE); NITRITE, URINE AUTO NEGATIVE (NEGATIVE); PROTEIN, URINE AUTO NEGATIVE (NEGATIVE); RBC, URINE AUTO 4 /HPF (0-3); SPECIFIC GRAVITY URINE AUTO 1.012 (1.002-1.035); SQUAMOUS EPITHELIAL CELL UR AU 15 /HPF (0-6); UROBILINOGEN, URINE AUTO 0.2 mg/dL (0.0-2.0); WBC, URINE AUTO 4 /HPF (0-3)
[2024-10-10] MEDS ORDERED: ISOVUE-370 76% 100 ML VIAL As Ordered ONE (20:26)
[2024-10-10] MEDS: HYDROMORPHONE HCL 0.5 MG/0.5 ML SYRINGE IV ONE (20:41)
[2024-10-10] MEDS: LACTULOSE 20 GM/30 ML SYRUP UDC PO SCH (21:00)
[2024-10-10] MEDS ORDERED: THIAMINE 100 MG TAB PO SCH (21:00)
[2024-10-10] MEDS: SUCRALFATE SUSP 1GM/10ML UD PO SCH (21:04)
[2024-10-10] MEDS ORDERED: ONDANSETRON 4MG/2ML VIAL IV PRN (21:05)
[2024-10-10 22:10] VITALS: BP 116/74; O2SAT 98
[2024-10-11 05:02] LABS: MAGNESIUM LEVEL 1.7 MG/DL (1.8-2.4)
[2024-10-11 05:03] LABS: HCG, SERUM QUANTITATIVE < 2.6 MIU/ML (<4.2)
[2024-10-11] MEDS ORDERED: CREON-24 CAPSULE (PANCRELIPASE) PO SCH (08:00)
[2024-10-11] MEDS ORDERED: PANTOPRAZOLE 40MG VIAL IV SCH (09:00)
[2024-10-11] MEDS ORDERED: FOLIC ACID 1 MG TAB PO SCH (09:00)
[2024-10-11] MEDS ORDERED: MULTIVITAMINS/MINERALS THERAP 1 TAB PO SCH (09:00)
[2024-10-11] MEDS ORDERED: FERROUS SULFATE 325 MG TAB PO SCH (09:00)
[2024-10-11] MEDS ORDERED: ALPRAZolam 0.25 MG TAB PO SCH (09:00)
[2024-10-11] MEDS ORDERED: PRENATAL VITAMINS CHEWABLE TABLET PO SCH (09:00)
== END 2024-10-10 23:00 | disposition left against medical advice (07) ==
LOC: EDBD 14:33 → M ED 14:33 → CANBEDREQ 22:53 → M ED 23:00
DX: R10.32 Left lower quadrant pain (principal); I10 Essential (primary) hypertension; K21.9 Gastro-esophageal reflux disease without esophagitis; F10.20 Alcohol dependence, uncomplicated; K74.60 Unspecified cirrhosis of liver; R16.1 Splenomegaly, not elsewhere classified; Z79.899 Other long term (current) drug therapy; Z91.89 Other specified personal risk factors, not elsewhere classified; Z88.8 Allergy status to other drugs, medicaments and biological substances; Z91.041 Radiographic dye allergy status
CPT/HCPCS: 71275; 74175; 74176; 80047; 80048; 80076; 81001; 82077; 82150; 83605; 83690; 83735; 83880; 84145; 84484; 84702; 85025; 93005; 93041; 93970; 96374; 96375; 99285; J1171; J1885; J2470; J2919; Q9967

== ENCOUNTER 2024-10-17 22:33 | Emergency (ER) | payer OTHER ==
[~2024-10-17 22:33] MED LIST changes: -BUPR-363 PO; +BUPR75TA5 PO
[2024-10-17 23:57] LABS: SALICYLATE LEVEL < 3.0 MG/DL (<30)
[2024-10-17 23:58] LABS: ALT/SGPT 98 U/L (7.0-40); AST/SGOT 171 U/L (<34); CALCIUM LEVEL 7.7 MG/DL (8.5-10.1); CARBON DIOXIDE LEVEL 25 MMOL/L (20-31); CHLORIDE LEVEL 106 MMOL/L (98-107); CREATININE FOR GFR 0.53 MG/DL (0.55-1.30); GLOMERULAR FILTRATION RATE > 90.0 (>60); POTASSIUM SERUM 3.5 MMOL/L (3.5-5.1); SODIUM LEVEL 147 MMOL/L (136-145)
[2024-10-18 00:27] LABS: ETHYL ALCOHOL (ETHANOL) 0.488 % (0.000-0.010)
[2024-10-18 00:35] LABS: PLATELET COUNT, AUTOMATED 173 10^3/uL (150-450)
[2024-10-18 01:57] LABS: AMPHETAMINES LEVEL URINE NEGATIVE (NEGATIVE); BARBITURATES URINE NEGATIVE (NEGATIVE); BENZODIAZEPINES URINE NEGATIVE (NEGATIVE); METHADONE URINE NEGATIVE (NEGATIVE)
[2024-10-18 01:58] LABS: CANNABINOIDS URINE NEGATIVE (NEGATIVE); COCAINE METABOLITE URINE POSITIVE (NEGATIVE); OPIATES URINE NEGATIVE (NEGATIVE); PHENCYCLIDINE URINE NEGATIVE (NEGATIVE)
[2024-10-18] MEDS: LR 1,000 ML IV ONE (02:20)
[2024-10-18] MEDS: FAMOTIDINE IV BAG 20 MG in IV 1 EA IV ONE (02:20)
[2024-10-18 02:52] LABS: HCG, SERUM QUALITATIVE NEGATIVE (NEGATIVE)
[2024-10-18 07:17] VITALS: BP 115/68; TEMP 97; O2SAT 98
== END 2024-10-18 07:35 | disposition home or self-care (01) ==
LOC: M ED 22:33
DX: F10.129 Alcohol abuse with intoxication, unspecified (principal); F14.10 Cocaine abuse, uncomplicated; R10.9 Unspecified abdominal pain; K76.0 Fatty (change of) liver, not elsewhere classified; Z79.899 Other long term (current) drug therapy; Z88.8 Allergy status to other drugs, medicaments and biological substances; Z91.041 Radiographic dye allergy status; Z91.89 Other specified personal risk factors, not elsewhere classified
CPT/HCPCS: 76705; 80048; 80076; 80143; 80307; 82077; 83690; 84443; 84703; 85027; 99285; J1308

== ENCOUNTER 2024-10-18 10:32 | Emergency (ER) | payer OTHER ==
[~2024-10-18] VITALS: Ht 162.6 cm; Wt 55.5 kg
[2024-10-18 13:00] VITALS: BP 112/61; O2SAT 94
[2024-10-18 13:18] VITALS: TEMP 97
== END 2024-10-18 13:28 | disposition home or self-care (01) ==
LOC: EDBD 10:32 → M ED 10:32
DX: F10.10 Alcohol abuse, uncomplicated (principal); R10.9 Unspecified abdominal pain; F14.10 Cocaine abuse, uncomplicated; K70.30 Alcoholic cirrhosis of liver without ascites; K86.9 Disease of pancreas, unspecified; Z79.899 Other long term (current) drug therapy; Z91.041 Radiographic dye allergy status; Z91.89 Other specified personal risk factors, not elsewhere classified; Z88.8 Allergy status to other drugs, medicaments and biological substances